=== PATIENT | female | born 1970 | race American Indian/Alaskan Native ===

== ENCOUNTER 2020-11-28 16:53 | Emergency (ER) | payer SELFPAY ==
[2020-11-28 17:08] VITALS: BP 132/76
--- NOTE | 2020-11-28 18:16 | XRay Report ---
CHEST 2 VIEWS INDICATION / CLINICAL INFORMATION: chest pain. FINDINGS: SUPPORT DEVICES: None. HEART / MEDIASTINUM: No significant abnormality. LUNGS / PLEURA: Small left-sided pleural effusion and tiny right pleural effusion. Streaky opacities within both lower lungs, nonspecific but could represent early interstitial edema versus atypical pne umonia. Signer Name: Alvino Govea MD Signed: 11/28/2020 6:11 PM Workstation Name: [id number]
[2020-11-28 18:44] LABS: Mean Corpuscular HGB Conc 28 % (30-34); Platelet Count 263 K/mm3 (140-440); Red Blood Count 4.72 M/mm3 (3.65-5.03)
[2020-11-28 18:51] LABS: Alanine Aminotransferase 27 units/L (7-56); Albumin 4.1 g/dL (3.9-5); BUN/Creatinine Ratio 9; Blood Urea Nitrogen 7 mg/dL (7-17); Calcium 8.6 mg/dL (8.4-10.2); Hemolysis Index 2
[2020-11-28 18:59] LABS: Hematocrit 27.6 % (30.3-42.9); Hemoglobin 7.8 gm/dl (10.1-14.3)
[2020-11-28 19:00] LABS: Mean Corpuscular Volume 59 fl (79-97); Red Cell Distribution Width 23.6 % (13.2-15.2)
[2020-11-28 19:35] LABS: Anisocytosis 1+; Hypochromasia Few; Total Cells Counted 100
--- NOTE | 2020-11-29 18:08 | Electrocardiograph Report ---
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
== END 2020-11-28 20:23 | disposition left against medical advice (07) ==
LOC: ED 16:53
DX: R07.9 Chest pain, unspecified (principal); Z53.21 Procedure and treatment not carried out due to patient leaving prior to being seen by health care provider
CPT/HCPCS: 36415; 71046; 80053; 84484; 85007; 85025; 93005

== ENCOUNTER 2020-12-07 22:24 | Inpatient (IN) | payer OTHER ==
--- NOTE | 2020-12-07 22:41 | Emergency Department Report ---
ED Shortness of Breath HPI - General Chief Complaint: Dyspnea/Respdistress Stated Complaint: MOUNA/COVID Time Seen by Provider: 12/07/20 22:29 Source: patient, EMS Mode of arrival: Stretcher Limitations: No Limitations - History of Present Illness Initial Comments: Patient is a 50-year-old female that presents emergency room with complaints of shortness of breath, cough, fever, Covid positive. Patient states she was diagnosed with COVID-19 1 week ago. Patient states her symptoms are worsening. Patient states her shortness of breath better with rest and worse with exertion. Patient states she has not seen a physician for this. Patient states she does not take any. Patient states the fever is fluctuating. Patient states it responds well to Tylenol. Patient states her cough is dry. Patient states she has not been vaccinated for COVID-19. Patient complains of chills. Patient denies nausea vomiting. Patient denies diarrhea. Patient denies abdominal pain. Patient denies chest pain. Patient brought in by EMS. Report received from EMS. EMS states the patient's ox saturation was 82%. Patient is currently on a nonrebreather is 95%. Patient was given Solu-Medrol, mag and albuterol. Complaint: shortness of breath, cough -: Sudden, week(s) Severity: severe Consistency: constant Improves With: rest Worsens With: exertion Context: recent URI Associated Symptoms: fever, cough Treatments Prior to Arrival: oxygen - Related Data Home Oxygen Therapy: No Allergies Allergy/AdvReac Type Severity Reaction Status Date / Time No Known Allergies Allergy Verified 12/07/20 23:37 ED Review of Systems ROS: Stated complaint: MOUNA/COVID Other details as noted in HPI Constitutional: chills, fever, malaise Eyes: denies: eye pain, eye discharge, vision change ENT: denies: ear pain, throat pain Respiratory: see HPI, cough, shortness of breath. denies: wheezing Cardiovascular: denies: chest pain, palpitations Endocrine: no symptoms reported Gastrointestinal: denies: abdominal pain, nausea, diarrhea Genitourinary: denies: urgency, dysuria, discharge Musculoskeletal: denies: back pain, joint swelling, arthralgia Skin: denies: rash, lesions Neurological: denies: headache, weakness, paresthesias Psychiatric: denies: anxiety, depression Hematological/Lymphatic: denies: easy bleeding, easy bruising ED Past Medical Hx - Past Medical History Previous Medical History?: Yes Hx Hypertension: Yes - Surgical History Past Surgical History?: No - Family History Family history: no significant - Social History Smoking Status: Never Smoker Substance Use Type: None ED Physical Exam - General Limitations: No Limitations General appearance: alert, in distress - Head Head exam: Present: atraumatic, normocephalic - Eye Eye exam: Present: normal appearance - ENT ENT exam: Present: mucous membranes moist - Neck Neck exam: Present: normal inspection - Respiratory Respiratory exam: Present: respiratory distress, decreased breath sounds - Cardiovascular Cardiovascular Exam: Present: regular rate, normal rhythm. Absent: systolic murmur, diastolic murmur, rubs, gallop - GI/Abdominal GI/Abdominal exam: Present: soft, normal bowel sounds - Extremities Exam Extremities exam: Present: normal inspection - Back Exam Back exam: Present: normal inspection - Neurological Exam Neurological exam: Present: alert, oriented X3 - Psychiatric Psychiatric exam: Present: normal affect, normal mood - Skin Skin exam: Present: warm, dry, intact, normal color. Absent: rash ED Course Vital Signs 12/07/20 12/07/20 12/07/20 22:34 22:45 23:01 Temperature Pulse Rate 97 H 97 H 97 H Respiratory 51 H 48 H 52 H Rate Blood Pressure 167/104 169/97 O2 Sat by Pulse 97 98 99 Oximetry 12/07/20 12/07/20 12/07/20 23:15 23:20 23:24 Temperature 98.3 F Pulse Rate 95 H 97 H 94 H Respiratory 54 H 30 H 47 H Rate Blood Pressure 169/97 167/100 167/100 O2 Sat by Pulse 89 98 96 Oximetry 12/07/20 12/07/20 12/08/20 23:31 23:45 00:01 Temperature Pulse Rate 94 H 93 H 91 H Respiratory 47 H 42 H 45 H Rate Blood Pressure 167/100 167/100 158/96 O2 Sat by Pulse 97 99 100 Oximetry 12/08/20 12/08/20 12/08/20 00:11 00:15 00:31 Temperature Pulse Rate 97 H 96 H Respiratory 43 H 43 H Rate Blood Pressure 158/96 144/104 O2 Sat by Pulse 100 97 99 Oximetry 12/08/20 12/08/20 12/08/20 00:45 01:01 01:15 Temperature Pulse Rate 97 H 95 H 92 H Respiratory 34 H 39 H 39 H Rate Blood Pressure 144/104 130/86 130/86 O2 Sat by Pulse 98 98 98 Oximetry 12/08/20 12/08/20 12/08/20 01:31 01:46 02:01 Temperature Pulse Rate 92 H 92 H Respiratory 43 H 36 H Rate Blood Pressure 125/82 125/82 125/82 O2 Sat by Pulse 100 100 100 Oximetry 12/08/20 12/08/20 12/08/20 02:15 02:31 02:45 Temperature Pulse Rate 96 H 95 H 96 H Respiratory 34 H 37 H 38 H Rate Blood Pressure 160/100 160/100 125/82 O2 Sat by Pulse 99 98 98 Oximetry - Reevaluation(s) Reevaluation #1: Patient on BiPAP. Patient anxiety. Patient will be given Ativan. 12/07/20 23:26 Reevaluation #2: Patient states she is feeling better. Patient on BiPAP. Patient states her anxiety is better. 12/08/20 00:15 Reevaluation #3: Patient resting BiPAP. Patient's work to breathe is improved. Patient oxygen saturation is stable. 12/08/20 01:04 Reevaluation #4: Patient states resting comfortably in bed. Patient still on BiPAP. Patient's work to breathe has improved. 12/08/20 02:05 Reevaluation #5: I discussed all results with patient. I discussed plan of care with patient. Patient agrees with plan of care and admission. Patient to be admitted to the hospitalist service. 12/08/20 03:05 - Consultations Consultation #1: Hospitalist consulted for admission. Hospitalist to admit patient. 12/08/20 03:05 ED Medical Decision Making - Lab Data Result diagrams: 12/08/20 00:15 12/08/20 00:15 - Radiology Data Radiology results: report reviewed, image reviewed interpreted by me: Chest x-ray: Bilateral pneumonia, no pneumothorax, no foreign body, no osseous findings, CTA chest with contrast INDICATION : Shortness of breath, Hypoxia, elevated D-dimer. TECHNIQUE: Axial imaging performed through the chest, with contrast bolus timing set to maximize opacification of the pulmonary arteries. 3-plane MIP reformatted images were obtained. All CT scans at this location are performed using CT dose reduction for ALARA by means of automated exposure control. 100 mL of intravenous contrast administered. COMPARISON: None FINDINGS: Bolus/PTE: Contrast bolus timing is adequate. No filling defect is present to suggest PTE. Mediastinum: Heart and great vessels appear normal. No pathologic mediastinal adenopathy. Lungs: There is patchy diffuse ground glass predominant airspace disease and also mild bibasilar consolidation/atelectasis. No pleural effusion. Upper abdomen: Limited imaging of the upper abdomen shows nothing acute. Bones: No acute osseous abnormality. IMPRESSION: 1. Negative for PTE. 2. Pulmonary findings as above suggesting an atypical etiology versus interstitial edema. CHEST 1 VIEW INDICATION: Dyspnea. COMPARISON: 11/28/2020 FINDINGS: SUPPORT DEVICES: None. HEART: Within normal limits. LUNGS/PLEURA: Mild patchy multifocal airspace disease. ADDITIONAL FINDINGS: None. IMPRESSION: 1. Pulmonary findings as above. - Medical Decision Making Patient is a 50-year-old female who presents emergency room with complaints of being Covid positive, shortness of breath fever and cough. Patient has had Covid for a week. Patient is unvaccinated. Patient had labs done which were essentially unremarkable except for elevated BC, anemia, elevated inflammatory markers and elevated D-dimer. Due to the amount of D-dimer elevation the patient had and the patient's hypoxia and shortness of breath, a CTA was done. CTA was negative for PE and positive for interstitial pneumonia. Patient's manfred st x-ray was done which showed bilateral atypical pneumonia. I personally reviewed the chest x-ray. After initial valuation, the patient was given Decadron, Rocephin and Zithromax. Patient was also placed on BiPAP after initial evaluation. Patient responded well to BiPAP. Patient work to breathe improved. Patient admitted to the hospital service for further evaluation treatment and into the intermediate ICU. Critical care time documented due to the multiple reassessments, prolonged time at the bedside, interpretation of diagnostics and labs. - Differential Diagnosis Covid, pneumonia, PE, shortness of breath, respiratory failure, hypoxia Critical Care Time: Yes Critical care time in (mins) excluding proc time.: 35 Critical care attestation.: If time is entered above; I have spent that time in minutes in the direct care of this critically ill patient, excluding procedure time. Critical Care Time: 35 minutes ED Disposition Clinical Impression: COVID-19, SOB (shortness of breath) Respiratory failure Qualifiers: Chronicity: acute Respiratory failure complication: hypoxia Qualified Code(s): J96.01 - Acute respiratory failure with hypoxia Pneumonia Qualifiers: Pneumonia type: due to unspecified organism Laterality: bilateral Lung location: unspecified part of lung Qualified Code(s): J18.9 - Pneumonia, unspecified organism Disposition: 09 OP ADMIT IP TO THIS HOSP Is pt being admited?: Yes Does the pt Need Aspirin: No Condition: Critical Instructions: Bacterial Pneumonia (ED) Time of Disposition: 03:08
[2020-12-07] MEDS ORDERED: cefTRIAXone/NS 2 GM/100 ML 2 GM/100 ML BAG IV ONE (22:57)
[2020-12-07] MEDS ORDERED: AZITHROMYCIN/NS 500 MG/250 ML 500 MG/250 ML BAG IV ONE (22:57)
--- NOTE | 2020-12-07 23:22 | XRay Report ---
CHEST 1 VIEW INDICATION: Dyspnea. COMPARISON: 11/28/2020 FINDINGS: SUPPORT DEVICES: None. HEART: Within normal limits. LUNGS/PLEURA: Mild patchy multifocal airspace disease. ADDITIONAL FINDINGS: None. IMPRESSION: 1. Pulmonary findings as above. Signer Name: Brian Sheikh MD Signed: 12/07/2020 11:18 PM Workstation Name: [id number]
[2020-12-07] MEDS ORDERED: LORazepam 2 MG/ML VIAL IV ONE (23:32)
[2020-12-07] MEDS ORDERED: LORazepam 2 MG/ML VIAL ONE (23:33)
[2020-12-08 00:47] LABS: INR 1.27 (0.87-1.13)
[2020-12-08 00:48] LABS: Partial Thromboplastin Time 29.6 Sec. (24.2-36.6)
[2020-12-08 00:49] LABS: Mean Corpuscular HGB Conc 28 % (30-34); Platelet Count 464 K/mm3 (140-440)
[2020-12-08 00:50] LABS: Hematocrit 29.7 % (30.3-42.9); Hemoglobin 8.3 gm/dl (10.1-14.3); Mean Corpuscular Volume 55 fl (79-97)
[2020-12-08 00:57] LABS: Albumin 3.2 g/dL (3.9-5); Blood Urea Nitrogen 17 mg/dL (7-17); Calcium 8.3 mg/dL (8.4-10.2); Hemolysis Index 0
[2020-12-08 01:05] LABS: BUN/Creatinine Ratio 28
[2020-12-08 01:14] LABS: Alanine Aminotransferase 1384 units/L (7-56)
[2020-12-08 02:03] LABS: Anisocytosis 2+; Band Neutrophils # (Manual) 0.9 K/mm3; Hypochromasia 3+; Ovalocytes 1+; Platelet Estimate Consistent w Auto; Target Cells 2+; Tear Drop Cells 1+; Total Cells Counted 100
--- NOTE | 2020-12-08 02:14 | Cat Scan Report ---
CTA chest with contrast INDICATION : Shortness of breath, Hypoxia, elevated D-dimer. TECHNIQUE: Axial imaging performed through the chest, with contrast bolus timing set to maximize opa cification of the pulmonary arteries. 3-plane MIP reformatted images were obtained. All CT scans at this location are performed using CT dose reduction for ALARA by means of automated exposure control. 100 mL of intravenous contrast administered. COMPARISON: None FINDINGS: Bolus/PTE: Contrast bolus timing is adequate. No filling defect is present to suggest PTE. Mediastinum: Heart and great vessels appear normal. No pathologic mediastinal adenopathy. Lungs: There is patchy diffuse ground glass predominant airspace disease and also mild bibasilar con solidation/atelectasis. No pleural effusion. Upper abdomen: Limited imaging of the upper abdomen shows nothing acute. Bones: No acute osseous abnormality. IMPRESSION: 1. Negative for PTE. 2. Pulmonary findings as above suggesting an atypical etiology versus interstitial edema. Signer Name: Brian Sheikh MD Signed: 12/08/2020 2:09 AM Workstation Name: [id number]
[2020-12-08 02:24] LABS: C-Reactive Protein 20.7 mg/dL (0.00-1.30)
[2020-12-08] MEDS ORDERED: ONDANSETRON 4 MG/2 ML INJ IV PRN (05:31)
[2020-12-08] MEDS ORDERED: ALBUTEROL 2.5 MG/3 ML NEBU IH PRN (05:31)
--- NOTE | 2020-12-08 05:39 | History and Physical Report ---
History of Present Illness Date of examination: 12/08/20 Date of admission: 12/08/20 03:11 Chief complaint: Shortness of breath Cough History of present illness: 50-year-old female with history of hypertension was brought to the emergency room because of shortness of breath, cough, fever, Covid positive. Patient was diagnosed with COVID-19 1 week ago. Since then patient complained of worsening shortness of breath. Patient states she has not seen a physician for this. Patient states she does not take any medicine. Patient states the fever is fluctuating. Patient states it responds well to Tylenol. Patient states her cough is dry. Patient states she has not been vaccinated for COVID-19. Patient complains of chills. Patient denies nausea vomiting. Patient denies diarrhea. Patient denies abdominal pain. Patient denies chest pain. patient's ox saturation was 82%. Patient was found to have acute respiratory failure. Patient WBC 17.0 and chest x-ray shows pneumonia secondary to Covid. Patient was put on BiPAP Past History Past Medical History: hypertension Medications and Allergies Allergies Allergy/AdvReac Type Severity Reaction Status Date / Time No Known Allergies Allergy Verified 12/07/20 23:37 Review of Systems Constitutional: fever, chills Cardiovascular: shortness of breath, dyspnea on exertion Respiratory: cough, shortness of breath, dyspnea on exertion Exam - Constitutional Vitals: Temp Pulse Resp BP Pulse Ox 98.3 F 95 H 37 H 144/100 97 12/07/20 23:20 12/08/20 04:15 12/08/20 04:15 12/08/20 04:15 12/08/20 04:15 General appearance: Present: severe distress - EENT Eyes: Present: PERRL ENT: hearing intact, clear oral mucosa - Neck Neck: Present: supple, normal ROM - Respiratory Respiratory effort: normal Respiratory: bilateral: diminished - Cardiovascular Heart Sounds: Present: S1 & S2. Absent: rub, click - Extremities Extremities: pulses symmetrical, No edema Peripheral Pulses: within normal limits - Abdominal General gastrointestinal: Present: soft, non-tender, non-distended, normal bowel sounds Female genitourinary: Present: normal - Integumentary Integumentary: Present: clear, warm, dry - Musculoskeletal Musculoskeletal: gait normal, strength equal bilaterally - Psychiatric Psychiatric: appropriate mood/affect, intact judgment & insight - Neurologic Neurologic: CNII-XII intact, moves all extremities Results - Labs CBC & Chem 7: 12/08/20 00:15 12/08/20 00:15 Labs: Laboratory Last Values WBC 17.0 K/mm3 (4.5-11.0) H 12/08/20 00:15 RBC 5.40 M/mm3 (3.65-5.03) H 12/08/20 00:15 Hgb 8.3 gm/dl (10.1-14.3) L 12/08/20 00:15 Hct 29.7 % (30.3-42.9) L 12/08/20 00:15 MCV 55 fl (79-97) L 12/08/20 00:15 MCH 16 pg (28-32) L 12/08/20 00:15 MCHC 28 % (30-34) L 12/08/20 00:15 RDW 25.0 % (13.2-15.2) H 12/08/20 00:15 Plt Count 464 K/mm3 (140-440) H 12/08/20 00:15 Add Manual Diff Complete 12/08/20 00:15 Total Counted 100 12/08/20 00:15 Seg Neuts % (Manual) 92.0 % (40.0-70.0) H 12/08/20 00:15 Band Neutrophils % 5.0 % 12/08/20 00:15 Lymphocytes % (Manual) 1.0 % (13.4-35.0) L 12/08/20 00:15 Monocytes % (Manual) 1.0 % (0.0-7.3) 12/08/20 00:15 Metamyelocytes % 1.0 % 12/08/20 00:15 Nucleated RBC % Not Reportable 12/08/20 00:15 Seg Neutrophils # Man 15.6 K/mm3 (1.8-7.7) H 12/08/20 00:15 Band Neutrophils # 0.9 K/mm3 12/08/20 00:15 Lymphocytes # (Manual) 0.2 K/mm3 (1.2-5.4) L 12/08/20 00:15 Abs React Lymphs (Man) 0.0 K/mm3 12/08/20 00:15 Monocytes # (Manual) 0.2 K/mm3 (0.0-0.8) 12/08/20 00:15 Eosinophils # (Manual) 0.0 K/mm3 (0.0-0.4) 12/08/20 00:15 Basophils # (Manual) 0.0 K/mm3 (0.0-0.1) 12/08/20 00:15 Metamyelocytes # 0.2 K/mm3 12/08/20 00:15 Myelocytes # 0.0 K/mm3 12/08/20 00:15 Promyelocytes # 0.0 K/mm3 12/08/20 00:15 Blast Cells # 0.0 K/mm3 12/08/20 00:15 WBC Morphology Not Reportable 12/08/20 00:15 Hypersegmented Neuts Not Reportable 12/08/20 00:15 Hyposegmented Neuts Not Reportable 12/08/20 00:15 Hypogranular Neuts Not Reportable 12/08/20 00:15 Smudge Cells Not Reportable 12/08/20 00:15 Toxic Granulation Not Reportable 12/08/20 00:15 Toxic Vacuolation Not Reportable 12/08/20 00:15 Dohle Bodies Not Reportable 12/08/20 00:15 Pelger-Huet Anomaly Not Reportable 12/08/20 00:15 Lauryn Rods Not Reportable 12/08/20 00:15 Platelet Estimate Consistent w auto 12/08/20 00:15 Clumped Platelets Not Reportable 12/08/20 00:15 Plt Clumps, EDTA Not Reportable 12/08/20 00:15 Large Platelets Not Reportable 12/08/20 00:15 Giant Platelets Not Reportable 12/08/20 00:15 Platelet Satelliting Not Reportable 12/08/20 00:15 Plt Morphology Comment Not Reportable 12/08/20 00:15 RBC Morphology Not Reportable 12/08/20 00:15 Dimorphic RBCs Not Reportable 12/08/20 00:15 Polychromasia 1+ 12/08/20 00:15 Hypochromasia 3+ 12/08/20 00:15 Poikilocytosis Not Reportable 12/08/20 00:15 Anisocytosis 2+ 12/08/20 00:15 Microcytosis Not Reportable 12/08/20 00:15 Macrocytosis Not Reportable 12/08/20 00:15 Spherocytes Not Reportable 12/08/20 00:15 Pappenheimer Bodies Not Reportable 12/08/20 00:15 Sickle Cells Not Reportable 12/08/20 00:15 Target Cells 2+ 12/08/20 00:15 Tear Drop Cells 1+ 12/08/20 00:15 Ovalocytes 1+ 12/08/20 00:15 Helmet Cells Not Reportable 12/08/20 00:15 Torres-Badin Bodies Not Reportable 12/08/20 00:15 [place] Rings Not Reportable 12/08/20 00:15 [place] Cells Not Reportable 12/08/20 00:15 Bite Cells Not Reportable 12/08/20 00:15 Crenated Cell Not Reportable 12/08/20 00:15 Elliptocytes Not Reportable 12/08/20 00:15 Acanthocytes (Spur) Not Reportable 12/08/20 00:15 Rouleaux Not Reportable 12/08/20 00:15 Hemoglobin C Crystals Not Reportable 12/08/20 00:15 Schistocytes Not Reportable 12/08/20 00:15 Malaria parasites Not Reportable 12/08/20 00:15 Brant Bodies Not Reportable 12/08/20 00:15 Hem Pathologist Commnt No 12/08/20 00:15 PT 16.4 Sec. (12.2-14.9) H 12/08/20 00:15 INR 1.27 (0.87-1.13) H 12/08/20 00:15 APTT 29.6 Sec. (24.2-36.6) 12/08/20 00:15 D-Dimer 1129.87 ng/mlDDU (0-234) H 12/08/20 00:15 Sodium 139 mmol/L (137-145) 12/08/20 00:15 Potassium 3.1 mmol/L (3.6-5.0) L 12/08/20 00:15 Chloride 101.3 mmol/L (98-107) 12/08/20 00:15 Carbon Dioxide 24 mmol/L (22-30) 12/08/20 00:15 Anion Gap 17 mmol/L 12/08/20 00:15 BUN 17 mg/dL (7-17) 12/08/20 00:15 Creatinine 0.6 mg/dL (0.6-1.2) 12/08/20 00:15 Estimated GFR > 60 ml/min 12/08/20 00:15 BUN/Creatinine Ratio 28 % 12/08/20 00:15 Glucose 128 mg/dL (65-100) H 12/08/20 00:15 Lactic Acid 2.50 mmol/L (0.7-2.0) H* 12/08/20 02:16 Calcium 8.3 mg/dL (8.4-10.2) L 12/08/20 00:15 Ferritin 289.8 ng/mL (10.0-200.0) H 12/08/20 00:15 Total Bilirubin 1.90 mg/dL (0.1-1.2) H 12/08/20 00:15 AST 309 units/L (5-40) H 12/08/20 00:15 ALT 1384 units/L (7-56) H 12/08/20 00:15 Alkaline Phosphatase 440 units/L (35-129) H 12/08/20 00:15 Lactate Dehydrogenase 608 units/L (91-180) H 12/08/20 00:15 C-Reactive Protein 20.70 mg/dL (0.00-1.30) H 12/08/20 00:15 Total Protein 7.7 g/dL (6.3-8.2) 12/08/20 00:15 Albumin 3.2 g/dL (3.9-5) L 12/08/20 00:15 Albumin/Globulin Ratio 0.7 % 12/08/20 00:15 Procalcitonin 21.55 ng/mL (<0.15) 12/08/20 00:15 Microbiology: Microbiology 12/08/20 00:15 Peripheral/Venous Blood Culture - Preliminary Culture in Progress 12/08/20 00:05 Peripheral/Venous Blood Culture - Preliminary Culture in Progress Assessment and Plan VTE prophylaxis?: Chemical Plan of care discussed with patient/family: Yes - Patient Problems (1) Acute respiratory failure Current Visit: Yes Status: Acute Plan to address problem: Admit the patient to the IMCU. Patient is on BiPAP. DuoNeb by nebulizer every 4 hours. Albuterol via nebulizer every 4 hours as needed. Rocephin 2 g IV daily. Zithromax 500 mils IV daily. Dexamethasone 6 mg IV daily. Blood cultures sputum culture. Reconsult pulmonary as well as infectious disease for evaluation. Follow the Covid inflammatory marker (2) COVID-19 Current Visit: Yes Status: Acute Plan to address problem: Patient is on BiPAP. DuoNeb by nebulizer every 4 hours. Albuterol via nebulizer every 4 hours as needed. Rocephin 2 g IV daily. Zithromax 500 mils IV daily. Dexamethasone 6 mg IV daily. Blood cultures sputum culture. Reconsult pulmonary as well as infectious disease for evaluation. Follow the Covid inflammatory marker (3) Pneumonia Current Visit: Yes Status: Acute Qualifiers: Pneumonia type: due to unspecified organism Laterality: bilateral Lung location: unspecified part of lung Qualified Code(s): J18.9 - Pneumonia, unspecified organism Plan to address problem: Rocephin 2 g IV daily. Zithromax 500 mils IV daily. Blood cultures sputum culture. Reconsult pulmonary as well as infectious disease for evaluation. (4) Hypertension Current Visit: Yes Status: Acute Plan to address problem: Hydralazine 10 mg IV every 6 hours as needed. We will monitor the blood pressure closely (5) DVT prophylaxis Current Visit: Yes Status: Acute Plan to address problem: Heparin 5000 units subcu every 8 hours for DVT prophylaxis. Pepcid 20 mg p.o. twice daily for GI prophylaxis. Patient is a full code
[2020-12-08] MEDS: HEPARIN 5,000 UNIT/1 ML VIAL SUB-Q SCH ×3 (06:15→21:40)
[2020-12-08] MEDS: IPRATROPIUM/ALBUTEROL SULFATE 3 ML AMPUL.NEB IH SCH ×3 (08:54→20:39)
[2020-12-08] MEDS: dexAMETHasone 4 MG/ML VIAL IV SCH (11:22)
[2020-12-08] MEDS: FAMOTIDINE 20 MG TAB PO SCH ×2 (11:22→21:40)
[2020-12-08] MEDS: HYDROmorphone 1 MG/1 ML INJ IV PRN ×3 (13:32→23:38)
--- NOTE | 2020-12-08 13:48 | Event Note ---
Date: 12/08/20 Patient was seen and evaluated this morning and patient was on BIPAP. Patient admitted earlier this morning and continue management as outlined in HPI.
--- NOTE | 2020-12-08 15:12 | Vascular Lab Report ---
DUPLEX DOPPLER LOWER EXTREMITY VEINS, BILATERAL INDICATION / CLINICAL INFORMATION: Elevated d-dimer, SOB. TECHNIQUE: Duplex doppler imaging was performed through the veins of both lower extremities using catrina ous compression and other maneuvers. COMPARISON: None available. FINDINGS: RIGHT COMMON FEMORAL VEIN: Negative. RIGHT FEMORAL VEIN: Negative. RIGHT POPLITEAL VEIN: Negative. RIGHT CALF VEINS: Negative. LEFT COMMON FEMORAL VEIN: Negative. LEFT FEMORAL VEIN: Negative. LEFT POPLITEAL VEIN: Negative. LEFT CALF VEINS: Negative. ADDITIONAL FINDINGS: None. IMPRESSION: 1. No sonographic evidence for DVT in either lower extremity. Scribed by: Noreen Alex RDMS, RVT Scribed: 12/08/2020 1:57 PM I have reviewed the images, agree with this report, and edited this report as needed. Signer Name: Navi Linares MD Signed: 12/08/2020 3:08 PM Workstation Name: [id number]
--- NOTE | 2020-12-08 15:13 | Consultation ---
History of Present Illness - Reason for Consult Consult date: 12/08/20 - History of Present Illness 50-year-old female past medical history hypertension Brought to the hospital shortness of breath, cough, fever. She notes she was diagnosed with COVID-19 as an outpatient 1 week prior to admission. She notes her symptoms are progressive since onset. She is not vaccinated against Covid and to be hypoxic on presentation. Afebrile, white count 17. Covid positive. Normal renal function elevated procalcitonin high inflammatory markers. Blood cultures no growth so far. On BiPAP. Imaging personally: Chest CTA: No pulmonary embolism. Patchy diffuse groundglass Review of systems: Deferred to reduce to the risk of transmission of COVID-19 Past History Past Medical History: hypertension Medications and Allergies Allergies Allergy/AdvReac Type Severity Reaction Status Date / Time No Known Allergies Allergy Verified 12/07/20 23:37 Home Medications Medication Instructions Recorded Confirmed Last Taken Type No Known Home Medications [No 12/08/20 12/08/20 Unknown History Reported Home Medications] Active Meds: Active Medications Acetaminophen (Acetaminophen 325 Mg Tab) 650 mg PO Q4H PRN PRN Reason: Pain MILD(1-3)/Fever >100.5/[place] Albuterol (Albuterol 2.5 Mg/3 Ml Nebu) 2.5 mg IH Q4HRT PRN PRN Reason: Shortness Of Breath Albuterol/Ipratropium (Ipratropium/Albuterol Sulfate 3 Ml Ampul.Neb) 1 ampul IH Q6HRT [facility] Last Admin: 12/08/20 14:40 Dose: Not Given Documented by: Dexamethasone (Dexamethasone 4 Mg/Ml Vial) 6 mg IV DAILY [facility] Stop: 12/17/20 10:01 Last Admin: 12/08/20 11:22 Dose: 6 mg Documented by: Famotidine (Famotidine 20 Mg Tab) 20 mg PO BID [facility] Last Admin: 12/08/20 11:22 Dose: 20 mg Documented by: Heparin Sodium (Porcine) (Heparin 5,000 Unit/1 Ml Vial) 5,000 unit SUB-Q Q8HR [facility] Last Admin: 12/08/20 15:01 Dose: 5,000 unit Documented by: Hydromorphone HCl (Hydromorphone 1 Mg/1 Ml Inj) 0.5 mg IV Q3H PRN PRN Reason: Pain , Severe (7-10) Last Admin: 12/08/20 13:32 Dose: 0.5 mg Documented by: Ceftriaxone Sodium (Rocephin/Ns 2 Gm/100 Ml) 2 gm in 100 mls @ 200 mls/hr IV Q24H DARIAN; Protocol Azithromycin (Zithromax/Ns) 500 mg in 250 mls @ 250 mls/hr IV Q24H DARIAN; Protocol Ondansetron HCl (Ondansetron 4 Mg/2 Ml Inj) 4 mg IV Q8H PRN PRN Reason: Nausea And Vomiting Oxycodone/Acetaminophen (Oxycodone /Acetaminophen 5-325mg Tab) 1 tab PO Q6H PRN PRN Reason: Pain, Moderate (4-6) Sodium Chloride (Sodium Chloride 0.9% 10 Ml Flush Syringe) 10 ml IV BID DARIAN Last Admin: 12/08/20 11:32 Dose: Not Given Documented by: Sodium Chloride (Sodium Chloride 0.9% 10 Ml Flush Syringe) 10 ml IV PRN PRN PRN Reason: LINE FLUSH Physical Examination - Physical Exam Narrative exam: Physical exam deferred to reduce risk of transmission of COVID-19. Please refer to primary team's note. - Constitutional Vitals: Vital Signs Temp Pulse Resp BP Pulse Ox 98.3 F 95 H 22 154/94 94 12/07/20 23:20 12/08/20 10:00 12/08/20 14:02 12/08/20 10:00 12/08/20 10:00 Temperature -Last 24 Hours Temperature 98.3 F Results - Labs CBC & Chem 7: 12/08/20 00:15 12/08/20 00:15 Labs: Abnormal lab results 12/08/20 12/08/20 12/08/20 Range/Units 00:15 00:15 00:15 WBC 17.0 H (4.5-11.0) K/mm3 RBC 5.40 H (3.65-5.03) M/mm3 Hgb 8.3 L (10.1-14.3) gm/dl Hct 29.7 L (30.3-42.9) % MCV 55 L (79-97) fl MCH 16 L (28-32) pg MCHC 28 L (30-34) % RDW 25.0 H (13.2-15.2) % Plt Count 464 H (140-440) K/mm3 Seg Neuts % (Manual) 92.0 H (40.0-70.0) % Lymphocytes % (Manual) 1.0 L (13.4-35.0) % Seg Neutrophils # Man 15.6 H (1.8-7.7) K/mm3 Lymphocytes # (Manual) 0.2 L (1.2-5.4) K/mm3 PT 16.4 H (12.2-14.9) Sec. INR 1.27 H (0.87-1.13) D-Dimer 1129.87 H (0-234) ng/mlDDU Potassium 3.1 L (3.6-5.0) mmol/L Glucose 128 H (65-100) mg/dL Lactic Acid (0.7-2.0) mmol/L Calcium 8.3 L (8.4-10.2) mg/dL Ferritin (10.0-200.0) ng/mL Total Bilirubin 1.90 H (0.1-1.2) mg/dL AST 309 H (5-40) units/L ALT 1384 H (7-56) units/L Alkaline Phosphatase 440 H (35-129) units/L Lactate Dehydrogenase (91-180) units/L C-Reactive Protein (0.00-1.30) mg/dL Albumin 3.2 L (3.9-5) g/dL Coronavirus (PCR) (Negative) 12/08/20 12/08/20 12/08/20 Range/Units 00:15 00:15 00:15 WBC (4.5-11.0) K/mm3 RBC (3.65-5.03) M/mm3 Hgb (10.1-14.3) gm/dl Hct (30.3-42.9) % MCV (79-97) fl MCH (28-32) pg MCHC (30-34) % RDW (13.2-15.2) % Plt Count (140-440) K/mm3 Seg Neuts % (Manual) (40.0-70.0) % Lymphocytes % (Manual) (13.4-35.0) % Seg Neutrophils # Man (1.8-7.7) K/mm3 Lymphocytes # (Manual) (1.2-5.4) K/mm3 PT (12.2-14.9) Sec. INR (0.87-1.13) D-Dimer (0-234) ng/mlDDU Potassium (3.6-5.0) mmol/L Glucose (65-100) mg/dL Lactic Acid 2.30 H* (0.7-2.0) mmol/L Calcium (8.4-10.2) mg/dL Ferritin 289.8 H (10.0-200.0) ng/mL Total Bilirubin (0.1-1.2) mg/dL AST (5-40) units/L ALT (7-56) units/L Alkaline Phosphatase (35-129) units/L Lactate Dehydrogenase 608 H (91-180) units/L C-Reactive Protein 20.70 H (0.00-1.30) mg/dL Albumin (3.9-5) g/dL Coronavirus (PCR) (Negative) 12/08/20 12/08/20 12/08/20 Range/Units 02:16 09:49 10:30 WBC (4.5-11.0) K/mm3 RBC (3.65-5.03) M/mm3 Hgb (10.1-14.3) gm/dl Hct (30.3-42.9) % MCV (79-97) fl MCH (28-32) pg MCHC (30-34) % RDW (13.2-15.2) % Plt Count (140-440) K/mm3 Seg Neuts % (Manual) (40.0-70.0) % Lymphocytes % (Manual) (13.4-35.0) % Seg Neutrophils # Man (1.8-7.7) K/mm3 Lymphocytes # (Manual) (1.2-5.4) K/mm3 PT (12.2-14.9) Sec. INR (0.87-1.13) D-Dimer (0-234) ng/mlDDU Potassium (3.6-5.0) mmol/L Glucose (65-100) mg/dL Lactic Acid 2.50 H* 2.40 H* (0.7-2.0) mmol/L Calcium (8.4-10.2) mg/dL Ferritin (10.0-200.0) ng/mL Total Bilirubin (0.1-1.2) mg/dL AST (5-40) units/L ALT (7-56) units/L Alkaline Phosphatase (35-129) units/L Lactate Dehydrogenase (91-180) units/L C-Reactive Protein (0.00-1.30) mg/dL Albumin (3.9-5) g/dL Coronavirus (PCR) Positive A (Negative) Assessment and Plan Cultures: Blood culture no growth so far Covid positive A/P: 50-year-old female past medical history hypertension admitted with COVID-19 #Severe COVID-19 pneumonia: Patient presented with a week of symptoms, chest x- ray with diffuse bilateral infiltrates. Inflammatory markers elevated. No evidence of pulmonary embolism on CT #Acute hypoxemic respiratory failure: Likely secondary to COVID-19 infection. Currently on BiPAP Recs: -Dexamethasone 6 mg IV/PO daily for 10 days -Remdesivir 200 mg IV q day x 1 followed by 100 mg IV q day x 4 days -With very high procalcitonin likely bacterial coinfection, as such not an Actemra candidate -Obtain q48-72h inflammatory markers - ferritin, Ddimer, CRP, LDH -Continue ceftriaxone 2 gm IV qday and azithromycin 500 mg PO qday to complete 5 days -Anticoagulation per hospital protocol -Proning as able Thank you for the consult, we will continue to follow. MD Coretta [facility] O: [phone] F: [phone]
[2020-12-08] MEDS: cefTRIAXone/NS 2 GM/100 ML 2 GM/100 ML BAG IV SCH (21:40)
[2020-12-08] MEDS: AZITHROMYCIN/NS 500 MG/250 ML 500 MG/250 ML BAG IV SCH (21:40)
[2020-12-09] MEDS ORDERED: LORazepam 2 MG/ML VIAL IV ONE (01:08)
[2020-12-09] MEDS ORDERED: LORazepam 2 MG/ML VIAL ONE (01:11)
[2020-12-09 05:18] LABS: Blood Urea Nitrogen 30 mg/dL (7-17); Calcium 8.7 mg/dL (8.4-10.2); Hemolysis Index 2
[2020-12-09 05:30] LABS: BUN/Creatinine Ratio 43
[2020-12-09 05:45] LABS: Mean Corpuscular HGB Conc 28 % (30-34); Monocytes # (Auto) 1.3 K/mm3 (0.0-0.8); Platelet Count 509 K/mm3 (140-440); Red Blood Count 5.12 M/mm3 (3.65-5.03)
[2020-12-09 05:58] LABS: Hematocrit 29.1 % (30.3-42.9); Hemoglobin 8.2 gm/dl (10.1-14.3); Mean Corpuscular Volume 57 fl (79-97); Red Cell Distribution Width 24.6 % (13.2-15.2)
[2020-12-09] MEDS: IPRATROPIUM/ALBUTEROL SULFATE 3 ML AMPUL.NEB IH SCH (06:19)
[2020-12-09 09:52] LABS: Albumin 3.1 g/dL (3.9-5); Blood Urea Nitrogen 29 mg/dL (7-17); Hemolysis Index 4
[2020-12-09 09:53] LABS: BUN/Creatinine Ratio 48
[2020-12-09] MEDS ORDERED: REMDESIVIR 200 MG in SODIUM CHLORIDE 0.9% 250ML 250 ML IV ONE (10:00)
[2020-12-09 10:10] LABS: Alanine Aminotransferase 867 units/L (7-56)
--- NOTE | 2020-12-09 10:18 | Progress Note ---
Assessment and Plan Assessment and plan: (1) Acute respiratory failure Current Visit: Yes Status: Acute Plan to address problem: Admit the patient to the [facility]. Patient is on BiPAP. DuoNeb by nebulizer every 4 hours. Albuterol via nebulizer every 4 hours as needed. Rocephin 2 g IV daily. Zithromax 500 mils IV daily. Dexamethasone 6 mg IV daily. Blood cultures sputum culture. Reconsult pulmonary as well as infectious disease for evaluation. Follow the Covid inflammatory marker (2) COVID-19 Current Visit: Yes Status: Acute Plan to address problem: Patient is on BiPAP. DuoNeb by nebulizer every 4 hours. Albuterol via nebulizer every 4 hours as needed. Rocephin 2 g IV daily. Zithromax 500 mils IV daily. Dexamethasone 6 mg IV daily. Blood cultures sputum culture. Reconsult pulmonary as well as infectious disease for evaluation. Follow the Covid inflammatory marker (3) Pneumonia Current Visit: Yes Status: Acute Qualifiers: Pneumonia type: due to unspecified organism Laterality: bilateral Lung location: unspecified part of lung Qualified Code(s): J18.9 - Pneumonia, unspecified organism Plan to address problem: Rocephin 2 g IV daily. Zithromax 500 mils IV daily. Blood cultures sputum culture. Reconsult pulmonary as well as infectious disease for evaluation. (4) Hypertension Current Visit: Yes Status: Acute Plan to address problem: Hydralazine 10 mg IV every 6 hours as needed. We will monitor the blood pressure closely (5) DVT prophylaxis Current Visit: Yes Status: Acute Plan to address problem: Heparin 5000 units subcu every 8 hours for DVT prophylaxis. Pepcid 20 mg p.o. twice daily for GI prophylaxis. Patient is a full code. 12/09/2020 -Patient was on BiPAP with FiO2 of 100%, patient desaturated when she was off BiPAP momentarily. I put her on D5 half-normal saline for maintenance. Titrate oxygen as tolerated. -Pulmonary consulted, ID consulted. -Patient has elevated ALT and AST and is not a candidate for remdesivir. -Patient is on IV antibiotics and procalcitonin level is elevated, ID recommends to continue with IV antibiotics. ID said patient is not a candidate for Actemra because of the infection with elevated procalcitonin level. The high probability of a clinically significant, sudden or life threatening deterioration of the [respiratory] system(s) required my full and direct attenti on, intervention and personal management. The aggregate critical care time was [35] minutes. This time is in addition to time spent performing reported procedures but includes the following: [x] Data Review and interpretation [x] Patient assessment and monitoring of vital signs [x] Documentation [x] Medication orders and management History Interval history: Patient was seen and evaluated this morning Patient was anxious, she said her father is admitted to [facility] Patient was on BiPAP with FiO2 of 100% Hospitalist Physical - Physical exam Narrative exam: Patient was in distress, on BiPAP with FiO2 of 100% The patient appeared well nourished and normally developed. Vital signs as documented. Head exam is unremarkable. No scleral icterus . Neck is without jugular venous distension, thyromegaly, or carotid bruits. Lungs decreased air entry. Cardiac exam reveals regular rate and Rhythm. Abdominal exam reveals normal bowel sounds, nontender, no organomegaly. Extremities are nonedematous and both femoral and pedal pulses are normal. GAME ADVISOR: Alert and oriented 3. No focal weakness. - Constitutional Vitals: Temp Pulse Resp BP Pulse Ox 98.3 F 89 36 H 125/83 94 12/07/20 23:20 12/09/20 08:32 12/09/20 08:32 12/09/20 08:32 12/09/20 08:32 General appearance: Present: severe distress Results - Labs CBC & Chem 7: 12/09/20 04:33 12/09/20 09:13 Labs: Laboratory Last Values WBC 21.0 K/mm3 (4.5-11.0) H 12/09/20 04:33 RBC 5.12 M/mm3 (3.65-5.03) H 12/09/20 04:33 Hgb 8.2 gm/dl (10.1-14.3) L 12/09/20 04:33 Hct 29.1 % (30.3-42.9) L 12/09/20 04:33 MCV 57 fl (79-97) L 12/09/20 04:33 MCH 16 pg (28-32) L 12/09/20 04:33 MCHC 28 % (30-34) L 12/09/20 04:33 RDW 24.6 % (13.2-15.2) H 12/09/20 04:33 Plt Count 509 K/mm3 (140-440) H 12/09/20 04:33 [place] % (Auto) 6.0 % (0.0-7.3) 12/09/20 04:33 [place] # (Auto) 1.3 K/mm3 (0.0-0.8) H 12/09/20 04:33 Add Manual Diff Complete 12/08/20 00:15 Total Counted 100 12/08/20 00:15 Seg Neutrophils % 84.3 % (40.0-70.0) H 12/09/20 04:33 Seg Neuts % (Manual) 92.0 % (40.0-70.0) H 12/08/20 00:15 Band Neutrophils % 5.0 % 12/08/20 00:15 Lymphocytes % (Manual) 1.0 % (13.4-35.0) L 12/08/20 00:15 Monocytes % (Manual) 1.0 % (0.0-7.3) 12/08/20 00:15 Metamyelocytes % 1.0 % 12/08/20 00:15 Nucleated RBC % Not Reportable 12/08/20 00:15 Seg Neutrophils # 17.8 K/mm3 (1.8-7.7) H 12/09/20 04:33 Seg Neutrophils # Man 15.6 K/mm3 (1.8-7.7) H 12/08/20 00:15 Band Neutrophils # 0.9 K/mm3 12/08/20 00:15 Lymphocytes # (Manual) 0.2 K/mm3 (1.2-5.4) L 12/08/20 00:15 Abs React Lymphs (Man) 0.0 K/mm3 12/08/20 00:15 Monocytes # (Manual) 0.2 K/mm3 (0.0-0.8) 12/08/20 00:15 Eosinophils # (Manual) 0.0 K/mm3 (0.0-0.4) 12/08/20 00:15 Basophils # (Manual) 0.0 K/mm3 (0.0-0.1) 12/08/20 00:15 Metamyelocytes # 0.2 K/mm3 12/08/20 00:15 Myelocytes # 0.0 K/mm3 12/08/20 00:15 Promyelocytes # 0.0 K/mm3 12/08/20 00:15 Blast Cells # 0.0 K/mm3 12/08/20 00:15 WBC Morphology Not Reportable 12/08/20 00:15 Hypersegmented Neuts Not Reportable 12/08/20 00:15 Hyposegmented Neuts Not Reportable 12/08/20 00:15 Hypogranular Neuts Not Reportable 12/08/20 00:15 Smudge Cells Not Reportable 12/08/20 00:15 Toxic Granulation Not Reportable 12/08/20 00:15 Toxic Vacuolation Not Reportable 12/08/20 00:15 Dohle Bodies Not Reportable 12/08/20 00:15 Pelger-Huet Anomaly Not Reportable 12/08/20 00:15 Lauryn Rods Not Reportable 12/08/20 00:15 Platelet Estimate Consistent w auto 12/08/20 00:15 Clumped Platelets Not Reportable 12/08/20 00:15 Plt Clumps, EDTA Not Reportable 12/08/20 00:15 Large Platelets Not Reportable 12/08/20 00:15 Giant Platelets Not Reportable 12/08/20 00:15 Platelet Satelliting Not Reportable 12/08/20 00:15 Plt Morphology Comment Not Reportable 12/08/20 00:15 RBC Morphology Not Reportable 12/08/20 00:15 Dimorphic RBCs Not Reportable 12/08/20 00:15 Polychromasia 1+ 12/08/20 00:15 Hypochromasia 3+ 12/08/20 00:15 Poikilocytosis Not Reportable 12/08/20 00:15 Anisocytosis 2+ 12/08/20 00:15 Microcytosis Not Reportable 12/08/20 00:15 Macrocytosis Not Reportable 12/08/20 00:15 Spherocytes Not Reportable 12/08/20 00:15 Pappenheimer Bodies Not Reportable 12/08/20 00:15 Sickle Cells Not Reportable 12/08/20 00:15 Target Cells 2+ 12/08/20 00:15 Tear Drop Cells 1+ 12/08/20 00:15 Ovalocytes 1+ 12/08/20 00:15 Helmet Cells Not Reportable 12/08/20 00:15 [place] Bodies Not Reportable 12/08/20 00:15 Nakina Rings Not Reportable 12/08/20 00:15 Jens Cells Not Reportable 12/08/20 00:15 Bite Cells Not Reportable 12/08/20 00:15 Crenated Cell Not Reportable 12/08/20 00:15 Elliptocytes Not Reportable 12/08/20 00:15 Acanthocytes (Spur) Not Reportable 12/08/20 00:15 Rouleaux Not Reportable 12/08/20 00:15 Hemoglobin C Crystals Not Reportable 12/08/20 00:15 Schistocytes Not Reportable 12/08/20 00:15 Malaria parasites Not Reportable 12/08/20 00:15 Brant Bodies Not Reportable 12/08/20 00:15 Hem Pathologist Commnt No 12/08/20 00:15 PT 16.4 Sec. (12.2-14.9) H 12/08/20 00:15 INR 1.27 (0.87-1.13) H 12/08/20 00:15 APTT 29.6 Sec. (24.2-36.6) 12/08/20 00:15 D-Dimer 1129.87 ng/mlDDU (0-234) H 12/08/20 00:15 Sodium 139 mmol/L (137-145) 12/09/20 09:13 Potassium 3.7 mmol/L (3.6-5.0) 12/09/20 09:13 Chloride 100.4 mmol/L (98-107) 12/09/20 09:13 Carbon Dioxide 27 mmol/L (22-30) 12/09/20 09:13 Anion Gap 15 mmol/L 12/09/20 09:13 BUN 29 mg/dL (7-17) H 12/09/20 09:13 Creatinine 0.6 mg/dL (0.6-1.2) 12/09/20 09:13 Estimated GFR > 60 ml/min 12/09/20 09:13 BUN/Creatinine Ratio 48 % 12/09/20 09:13 Glucose 129 mg/dL (65-100) H 12/09/20 09:13 Lactic Acid 2.40 mmol/L (0.7-2.0) H* 12/08/20 09:49 Calcium 9.0 mg/dL (8.4-10.2) 12/09/20 09:13 Ferritin 289.8 ng/mL (10.0-200.0) H 12/08/20 00:15 Total Bilirubin 1.00 mg/dL (0.1-1.2) 12/09/20 09:13 AST 276 units/L (5-40) H 12/09/20 09:13 ALT 867 units/L (7-56) H 12/09/20 09:13 Alkaline Phosphatase 685 units/L (35-129) H 12/09/20 09:13 Lactate Dehydrogenase 608 units/L (91-180) H 12/08/20 00:15 C-Reactive Protein 20.70 mg/dL (0.00-1.30) H 12/08/20 00:15 Total Protein 7.4 g/dL (6.3-8.2) 12/09/20 09:13 Albumin 3.1 g/dL (3.9-5) L 12/09/20 09:13 Albumin/Globulin Ratio 0.7 % 12/09/20 09:13 Procalcitonin 21.55 ng/mL (<0.15) 12/08/20 00:15 Coronavirus (PCR) Positive (Negative) A 12/08/20 10:30 Microbiology: Microbiology 12/08/20 00:15 Peripheral/Venous Blood Culture - Preliminary NO GROWTH AFTER 24 HOURS 12/08/20 00:05 Peripheral/Venous Blood Culture - Preliminary NO GROWTH AFTER 24 HOURS Active Medications - Current Medications Current Medications: Generic Name Dose Route Start Last Admin Trade Name Freq PRN Reason Stop Dose Admin Acetaminophen 650 mg 12/08/20 05:31 Acetaminophen 325 Mg Tab PO Q4H PRN Pain MILD(1-3)/Fever >100.5/[place] Albuterol 2.5 mg 12/08/20 05:31 Albuterol 2.5 Mg/3 Ml Nebu IH Q4HRT PRN Shortness Of Breath Ascorbic Acid 500 mg 12/09/20 10:00 Ascorbic Acid 500 Mg Tab PO BID DARIAN Cholecalciferol 1,000 unit 12/09/20 10:00 Cholecalciferol (Vit D3) 1000 Unit (25 Mcg) Tab PO QDAY DARIAN Dexamethasone 6 mg 12/08/20 10:00 12/08/20 11:22 Dexamethasone 4 Mg/Ml Vial IV 12/17/20 10:01 6 mg DAILY DARIAN Administration Famotidine 20 mg 12/08/20 10:00 12/08/20 21:40 Famotidine 20 Mg Tab PO 20 mg BID DARIAN Administration Heparin Sodium (Porcine) 5,000 unit 12/08/20 06:00 12/08/20 21:40 Heparin 5,000 Unit/1 Ml Vial SUB-Q 5,000 unit Q8HR DARIAN Administration Hydromorphone HCl 0.5 mg 12/08/20 05:31 12/08/20 23:38 Hydromorphone 1 Mg/1 Ml Inj IV 0.5 mg Q3H PRN Administration Pain , Severe (7-10) Ceftriaxone Sodium 2 gm in 100 mls @ 200 mls/hr 12/08/20 22:00 12/08/20 21:40 Rocephin/Ns 2 Gm/100 Ml IV 200 mls/hr Q24H DARIAN Administration Protocol Azithromycin 500 mg in 250 mls @ 250 mls/hr 12/08/20 22:00 12/08/20 21:40 Zithromax/Ns IV 250 mls/hr Q24H DARIAN Administration Protocol REMDESIVIR 200 mg/ Sodium 250 mls @ 500 mls/hr 12/09/20 10:00 Chloride IV 12/09/20 10:29 ONCE ONE REMDESIVIR 100 mg/ Sodium 250 mls @ 500 mls/hr 12/10/20 21:00 Chloride IV 12/13/20 21:29 Q24HR@2100 DARIAN Ondansetron HCl 4 mg 12/08/20 05:31 Ondansetron 4 Mg/2 Ml Inj IV Q8H PRN Nausea And Vomiting Oxycodone/Acetaminophen 1 tab 12/08/20 05:31 Oxycodone /Acetaminophen 5-325mg Tab PO Q6H PRN Pain, Moderate (4-6) Sodium Chloride 10 ml 12/08/20 10:00 12/08/20 21:40 Sodium Chloride 0.9% 10 Ml Flush Syringe IV 10 ml BID DARIAN Administration Sodium Chloride 10 ml 12/08/20 05:31 Sodium Chloride 0.9% 10 Ml Flush Syringe IV PRN PRN LINE FLUSH Sodium Chloride 50 ml 12/10/20 21:00 Sodium Chloride 0.9% 50 Ml Ivpb IV 12/13/20 21:01 Q24HR@2100 DARIAN Sodium Chloride 50 ml 12/09/20 10:30 Sodium Chloride 0.9% 50 Ml Ivpb IV 12/09/20 10:31 Q24HR@2100 [facility] Zinc Sulfate 220 mg 12/09/20 10:00 Zinc Sulfate 220 Mg Cap PO QDAY DARIAN
[2020-12-09 10:27] LABS: Band Neutrophils # (Manual) 0.6 K/mm3; Total Cells Counted 100
[2020-12-09 10:28] LABS: Anisocytosis 2+; Hypochromasia 2+; Platelet Estimate Consistent w Auto; Tear Drop Cells Few
[2020-12-09] MEDS ORDERED: SODIUM CHLORIDE 0.9% 50 ML IVPB IV SCH (10:30)
[2020-12-09] MEDS: dexAMETHasone 4 MG/ML VIAL IV SCH (10:54)
[2020-12-09] MEDS: ZINC SULFATE 220 MG CAP PO SCH (10:55)
[2020-12-09] MEDS: CHOLECALCIFEROL (VIT D3) 1000 UNIT (25 mcg) TAB PO SCH (10:55)
[2020-12-09] MEDS: ASCORBIC ACID 500 MG TAB PO SCH ×2 (10:55→21:47)
[2020-12-09] MEDS: FAMOTIDINE 20 MG TAB PO SCH ×2 (10:55→21:47)
[2020-12-09] MEDS ORDERED: D5W/0.45% NACL 1,000 ML IV SCH (13:00)
[2020-12-09] MEDS: LORazepam 2 MG/ML VIAL IV PRN ×3 (13:46→23:49)
--- NOTE | 2020-12-09 16:07 | Consultation ---
History of Present Illness Consult date: 12/09/20 Requesting physician: MARIALUISA MCGREGOR Reason for consult: pneumonia, other (COVID-19 infection) History of present illness: PULMONARY/CCM CONSULT NOTE (Full dictation # [id number]) Please see dictated notes for full details Past History Past Medical History: hypertension Medications and Allergies Allergies Allergy/AdvReac Type Severity Reaction Status Date / Time No Known Allergies Allergy Verified 12/07/20 23:37 Home Medications Medication Instructions Recorded Confirmed Last Taken Type No Known Home Medications [No 12/08/20 12/08/20 Unknown History Reported Home Medications] Active Meds: Active Medications Acetaminophen (Acetaminophen 325 Mg Tab) 650 mg PO Q4H PRN PRN Reason: Pain MILD(1-3)/Fever >100.5/[place] Albuterol (Albuterol 2.5 Mg/3 Ml Nebu) 2.5 mg IH Q4HRT PRN PRN Reason: Shortness Of Breath Ascorbic Acid (Ascorbic Acid 500 Mg Tab) 500 mg PO BID [facility] Last Admin: 12/09/20 10:55 Dose: 500 mg Documented by: Cholecalciferol (Cholecalciferol (Vit D3) 1000 Unit (25 Mcg) Tab) 1,000 unit PO QDAY [facility] Last Admin: 12/09/20 10:55 Dose: 1,000 unit Documented by: Dexamethasone (Dexamethasone 4 Mg/Ml Vial) 6 mg IV DAILY [facility] Stop: 12/17/20 10:01 Last Admin: 12/09/20 10:54 Dose: 6 mg Documented by: Famotidine (Famotidine 20 Mg Tab) 20 mg PO BID [facility] Last Admin: 12/09/20 10:55 Dose: 20 mg Documented by: Heparin Sodium (Porcine) (Heparin 5,000 Unit/1 Ml Vial) 5,000 unit SUB-Q Q8HR [facility] Last Admin: 12/08/20 21:40 Dose: 5,000 unit Documented by: Hydromorphone HCl (Hydromorphone 1 Mg/1 Ml Inj) 0.5 mg IV Q3H PRN PRN Reason: Pain , Severe (7-10) Last Admin: 12/08/20 23:38 Dose: 0.5 mg Documented by: Ceftriaxone Sodium (Rocephin/Ns 2 Gm/100 Ml) 2 gm in 100 mls @ 200 mls/hr IV Q24H [facility]; Protocol Stop: 12/12/20 22:29 Last Admin: 12/08/20 21:40 Dose: 200 mls/hr Documented by: Azithromycin (Zithromax/Ns) 500 mg in 250 mls @ 250 mls/hr IV Q24H [facility]; Protocol Stop: 12/12/20 22:59 Last Admin: 12/08/20 21:40 Dose: 250 mls/hr Documented by: Dextrose/Sodium Chloride (D5/0.45ns) 1,000 mls @ 75 mls/hr IV DIRECT [facility] Last Admin: 12/09/20 13:46 Dose: 75 mls/hr Documented by: Lorazepam (Lorazepam 2 Mg/Ml Vial) 1 mg IV Q4H PRN PRN Reason: Anxiety Last Admin: 12/09/20 13:46 Dose: 1 mg Documented by: Ondansetron HCl (Ondansetron 4 Mg/2 Ml Inj) 4 mg IV Q8H PRN PRN Reason: Nausea And Vomiting Oxycodone/Acetaminophen (Oxycodone /Acetaminophen 5-325mg Tab) 1 tab PO Q6H PRN PRN Reason: Pain, Moderate (4-6) Sodium Chloride (Sodium Chloride 0.9% 10 Ml Flush Syringe) 10 ml IV BID [facility] Last Admin: 12/09/20 10:54 Dose: 10 ml Documented by: Sodium Chloride (Sodium Chloride 0.9% 10 Ml Flush Syringe) 10 ml IV PRN PRN PRN Reason: LINE FLUSH Sodium Chloride (Sodium Chloride 0.9% 50 Ml Ivpb) 50 ml IV Q24HR@2100 [facility] Stop: 12/13/20 21:01 Zinc Sulfate (Zinc Sulfate 220 Mg Cap) 220 mg PO QDAY [facility] Last Admin: 12/09/20 10:55 Dose: 220 mg Documented by: Physical Examination Vital signs: Vital Signs Pulse Resp Pulse Ox 97 H 51 H 97 12/07/20 22:34 12/07/20 22:34 12/07/20 22:34 Results - Laboratory Findings CBC and BMP: 12/09/20 04:33 12/09/20 09:13 PT/INR, D-dimer PT 16.4 Sec. (12.2-14.9) H 12/08/20 00:15 INR 1.27 (0.87-1.13) H 12/08/20 00:15 D-Dimer 1129.87 ng/mlDDU (0-234) H 12/08/20 00:15 Abnormal lab findings: Abnormal Labs 12/08/20 12/08/20 12/08/20 00:15 00:15 00:15 WBC 17.0 H RBC 5.40 H Hgb 8.3 L Hct 29.7 L MCV 55 L MCH 16 L MCHC 28 L RDW 25.0 H Plt Count 464 H [place] # (Auto) Seg Neutrophils % Seg Neuts % (Manual) 92.0 H Lymphocytes % (Manual) 1.0 L Nucleated RBC % Seg Neutrophils # Seg Neutrophils # Man 15.6 H Lymphocytes # (Manual) 0.2 L PT 16.4 H INR 1.27 H D-Dimer 1129.87 H Potassium 3.1 L BUN Glucose 128 H Lactic Acid Calcium 8.3 L Ferritin Total Bilirubin 1.90 H AST 309 H ALT 1384 H Alkaline Phosphatase 440 H Lactate Dehydrogenase C-Reactive Protein Albumin 3.2 L Coronavirus (PCR) 12/08/20 12/08/20 12/08/20 00:15 00:15 00:15 WBC RBC Hgb Hct MCV MCH MCHC RDW Plt Count [place] # (Auto) Seg Neutrophils % Seg Neuts % (Manual) Lymphocytes % (Manual) Nucleated RBC % Seg Neutrophils # Seg Neutrophils # Man Lymphocytes # (Manual) PT INR D-Dimer Potassium BUN Glucose Lactic Acid 2.30 H* Calcium Ferritin 289.8 H Total Bilirubin AST ALT Alkaline Phosphatase Lactate Dehydrogenase 608 H C-Reactive Protein 20.70 H Albumin Coronavirus (PCR) 12/08/20 12/08/20 12/08/20 02:16 09:49 10:30 WBC RBC Hgb Hct MCV MCH MCHC RDW Plt Count [place] # (Auto) Seg Neutrophils % Seg Neuts % (Manual) Lymphocytes % (Manual) Nucleated RBC % Seg Neutrophils # Seg Neutrophils # Man Lymphocytes # (Manual) PT INR D-Dimer Potassium BUN Glucose Lactic Acid 2.50 H* 2.40 H* Calcium Ferritin Total Bilirubin AST ALT Alkaline Phosphatase Lactate Dehydrogenase C-Reactive Protein Albumin Coronavirus (PCR) Positive A 12/09/20 12/09/20 12/09/20 04:33 04:33 09:13 WBC 21.0 H RBC 5.12 H Hgb 8.2 L Hct 29.1 L MCV 57 L MCH 16 L MCHC 28 L RDW 24.6 H Plt Count 509 H [place] # (Auto) 1.3 H Seg Neutrophils % 84.3 H Seg Neuts % (Manual) 93.0 H Lymphocytes % (Manual) 2.0 L Nucleated RBC % 2.0 H Seg Neutrophils # 17.8 H Seg Neutrophils # Man 19.5 H Lymphocytes # (Manual) 0.4 L PT INR D-Dimer Potassium 3.5 L BUN 30 H 29 H Glucose 190 H 129 H Lactic Acid Calcium Ferritin Total Bilirubin AST 276 H ALT 867 H Alkaline Phosphatase 685 H Lactate Dehydrogenase C-Reactive Protein Albumin 3.1 L Coronavirus (PCR)
[2020-12-09] MEDS: HEPARIN 5,000 UNIT/1 ML VIAL SUB-Q SCH ×3 (17:07→21:49)
--- NOTE | 2020-12-09 18:25 | Progress Note ---
Assessment and Plan Cultures: Blood culture no growth so far Covid positive A/P: 50-year-old female past medical history hypertension admitted with COVID-19 #Severe COVID-19 pneumonia: Patient presented with a week of symptoms, chest x- ray with diffuse bilateral infiltrates. Inflammatory markers elevated. No evidence of pulmonary embolism on CT #Acute hypoxemic respiratory failure: Likely secondary to COVID-19 infection. Currently on BiPAP #Elevated liver enzymes:-Secondary to COVID-19 Recs: -Dexamethasone 6 mg IV/PO daily for 10 days -Stop remdesivir due to elevated liver enzymes -With very high procalcitonin likely bacterial coinfection, as such not an Actemra candidate -Obtain q48-72h inflammatory markers - ferritin, Ddimer, CRP, LDH -Continue ceftriaxone 2 gm IV qday and azithromycin 500 mg PO qday to complete 5 days -Anticoagulation per hospital protocol -Proning as able Thank you for the consult, we will continue to follow. Dr. Hendrickson covering this weekend, Dr. Enamorado taking over Saturday. Odell Giles MD [facility] ([facility] O: [phone] F: [phone] Subjective Date of service: 12/09/20 Interval history: White count increased to 21, no new temperature is available for review. On BiPAP. Objective - Exam Narrative Exam: Physical exam deferred to reduce risk of transmission of COVID-19. Please refer to primary team's note. - Constitutional Vitals: Vital Signs Temp Pulse Resp BP Pulse Ox 98.3 F 106 H 28 H 140/93 78 L 12/07/20 23:20 12/09/20 17:31 12/09/20 17:31 12/09/20 17:31 12/09/20 17:31 - Labs CBC & Chem 7: 12/09/20 04:33 12/09/20 09:13 Labs: Abnormal lab results 12/09/20 12/09/20 12/09/20 Range/Units 04:33 04:33 09:13 WBC 21.0 H (4.5-11.0) K/mm3 RBC 5.12 H (3.65-5.03) M/mm3 Hgb 8.2 L (10.1-14.3) gm/dl Hct 29.1 L (30.3-42.9) % MCV 57 L (79-97) fl MCH 16 L (28-32) pg MCHC 28 L (30-34) % RDW 24.6 H (13.2-15.2) % Plt Count 509 H (140-440) K/mm3 [place] # (Auto) 1.3 H (0.0-0.8) K/mm3 Seg Neutrophils % 84.3 H (40.0-70.0) % Seg Neuts % (Manual) 93.0 H (40.0-70.0) % Lymphocytes % (Manual) 2.0 L (13.4-35.0) % Nucleated RBC % 2.0 H (0.0-0.9) % Seg Neutrophils # 17.8 H (1.8-7.7) K/mm3 Seg Neutrophils # Man 19.5 H (1.8-7.7) K/mm3 Lymphocytes # (Manual) 0.4 L (1.2-5.4) K/mm3 Potassium 3.5 L (3.6-5.0) mmol/L BUN 30 H 29 H (7-17) mg/dL Glucose 190 H 129 H (65-100) mg/dL AST 276 H (5-40) units/L ALT 867 H (7-56) units/L Alkaline Phosphatase 685 H (35-129) units/L Albumin 3.1 L (3.9-5) g/dL
[2020-12-09] MEDS: cefTRIAXone/NS 2 GM/100 ML 2 GM/100 ML BAG IV SCH (21:43)
[2020-12-09] MEDS: AZITHROMYCIN/NS 500 MG/250 ML 500 MG/250 ML BAG IV SCH (22:34)
[2020-12-10] MEDS: HEPARIN 5,000 UNIT/1 ML VIAL SUB-Q SCH ×3 (05:38→20:30)
[2020-12-10] MEDS ORDERED: SODIUM CHLORIDE 0.9% 1000 ML 1,000 ML IV ONE (06:19)
[2020-12-10 06:21] LABS: Albumin 2.9 g/dL (3.9-5); BUN/Creatinine Ratio 36; Blood Urea Nitrogen 25 mg/dL (7-17); Calcium 7.9 mg/dL (8.4-10.2); Hemolysis Index 0
[2020-12-10 06:34] LABS: Alanine Aminotransferase 722 units/L (7-56)
[2020-12-10] MEDS: HYDROmorphone 1 MG/1 ML INJ IV PRN (10:13)
--- NOTE | 2020-12-10 10:24 | Progress Note ---
Assessment and Plan Assessment and plan: (1) Acute respiratory failure Current Visit: Yes Status: Acute Plan to address problem: Admit the patient to the [facility]. Patient is on BiPAP. DuoNeb by nebulizer every 4 hours. Albuterol via nebulizer every 4 hours as needed. Rocephin 2 g IV daily. Zithromax 500 mils IV daily. Dexamethasone 6 mg IV daily. Blood cultures sputum culture. Reconsult pulmonary as well as infectious disease for evaluation. Follow the Covid inflammatory marker (2) COVID-19 Current Visit: Yes Status: Acute Plan to address problem: Patient is on BiPAP. DuoNeb by nebulizer every 4 hours. Albuterol via nebulizer every 4 hours as needed. Rocephin 2 g IV daily. Zithromax 500 mils IV daily. Dexamethasone 6 mg IV daily. Blood cultures sputum culture. Reconsult pulmonary as well as infectious disease for evaluation. Follow the Covid inflammatory marker (3) Pneumonia Current Visit: Yes Status: Acute Qualifiers: Pneumonia type: due to unspecified organism Laterality: bilateral Lung location: unspecified part of lung Qualified Code(s): J18.9 - Pneumonia, unspecified organism Plan to address problem: Rocephin 2 g IV daily. Zithromax 500 mils IV daily. Blood cultures sputum culture. Reconsult pulmonary as well as infectious disease for evaluation. (4) Hypertension Current Visit: Yes Status: Acute Plan to address problem: Hydralazine 10 mg IV every 6 hours as needed. We will monitor the blood pressure closely (5) DVT prophylaxis Current Visit: Yes Status: Acute Plan to address problem: Heparin 5000 units subcu every 8 hours for DVT prophylaxis. Pepcid 20 mg p.o. twice daily for GI prophylaxis. Patient is a full code. 12/09/2020 -Patient was on BiPAP with FiO2 of 100%, patient desaturated when she was off BiPAP momentarily. I put her on D5 half-normal saline for maintenance. Titrate oxygen as tolerated. -Pulmonary consulted, ID consulted. -Patient has elevated ALT and AST and is not a candidate for remdesivir. -Patient is on IV antibiotics and procalcitonin level is elevated, ID recommends to continue with IV antibiotics. ID said patient is not a candidate for Actemra because of the infection with elevated procalcitonin level. 12/10; patient is on BiPAP, on Decadron. Remdesivir discontinued due to elevated liver enzymes. Patient not a candidate for Actemra because patient has elevated procalcitonin level. Continue with IV antibiotics. Prognosis is guarded. The high probability of a clinically significant, sudden or life threatening deterioration of the [respiratory] system(s) required my full and direct attention, intervention and personal management. The aggregate critical care time was [35] minutes. This time is in addition to time spent performing reported procedures but includes the following: [x] Data Review and interpretation [x] Patient assessment and monitoring of vital signs [x] Documentation [x] Medication orders and management History Interval history: Patient was seen and evaluated this morning Patient was anxious, she said her father is admitted to [facility] Patient was on BiPAP with FiO2 of 100% Hospitalist Physical - Physical exam Narrative exam: Patient was in distress, on BiPAP with FiO2 of 100% The patient appeared well nourished and normally developed. Vital signs as documented. Head exam is unremarkable. No scleral icterus . Neck is without jugular venous distension, thyromegaly, or carotid bruits. Lungs decreased air entry. Cardiac exam reveals regular rate and Rhythm. Abdominal exam reveals normal bowel sounds, nontender, no organomegaly. Extremities are nonedematous and both femoral and pedal pulses are normal. 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 No focal weakness. - Constitutional Vitals: Temp Pulse Resp BP Pulse Ox 98.6 F 95 H 36 H 150/104 79 L 12/09/20 20:20 12/10/20 09:45 12/10/20 10:13 12/10/20 09:45 12/10/20 09:45 General appearance: Present: severe distress Results - Labs CBC & Chem 7: 12/09/20 04:33 12/10/20 05:04 Labs: Laboratory Last Values WBC 21.0 K/mm3 (4.5-11.0) H 12/09/20 04:33 RBC 5.12 M/mm3 (3.65-5.03) H 12/09/20 04:33 Hgb 8.2 gm/dl (10.1-14.3) L 12/09/20 04:33 Hct 29.1 % (30.3-42.9) L 12/09/20 04:33 MCV 57 fl (79-97) L 12/09/20 04:33 MCH 16 pg (28-32) L 12/09/20 04:33 MCHC 28 % (30-34) L 12/09/20 04:33 RDW 24.6 % (13.2-15.2) H 12/09/20 04:33 Plt Count 509 K/mm3 (140-440) H 12/09/20 04:33 [place] % (Auto) 6.0 % (0.0-7.3) 12/09/20 04:33 [place] # (Auto) 1.3 K/mm3 (0.0-0.8) H 12/09/20 04:33 Add Manual Diff Complete 12/09/20 04:33 Total Counted 100 12/09/20 04:33 Seg Neutrophils % 84.3 % (40.0-70.0) H 12/09/20 04:33 Seg Neuts % (Manual) 93.0 % (40.0-70.0) H 12/09/20 04:33 Band Neutrophils % 3.0 % 12/09/20 04:33 Lymphocytes % (Manual) 2.0 % (13.4-35.0) L 12/09/20 04:33 Monocytes % (Manual) 2.0 % (0.0-7.3) 12/09/20 04:33 Metamyelocytes % 1.0 % 12/08/20 00:15 Nucleated RBC % 2.0 % (0.0-0.9) H 12/09/20 04:33 Seg Neutrophils # 17.8 K/mm3 (1.8-7.7) H 12/09/20 04:33 Seg Neutrophils # Man 19.5 K/mm3 (1.8-7.7) H 12/09/20 04:33 Band Neutrophils # 0.6 K/mm3 12/09/20 04:33 Lymphocytes # (Manual) 0.4 K/mm3 (1.2-5.4) L 12/09/20 04:33 Abs React Lymphs (Man) 0.0 K/mm3 12/09/20 04:33 Monocytes # (Manual) 0.4 K/mm3 (0.0-0.8) 12/09/20 04:33 Eosinophils # (Manual) 0.0 K/mm3 (0.0-0.4) 12/09/20 04:33 Basophils # (Manual) 0.0 K/mm3 (0.0-0.1) 12/09/20 04:33 Metamyelocytes # 0.0 K/mm3 12/09/20 04:33 Myelocytes # 0.0 K/mm3 12/09/20 04:33 Promyelocytes # 0.0 K/mm3 12/09/20 04:33 Blast Cells # 0.0 K/mm3 12/09/20 04:33 WBC Morphology Not Reportable 12/09/20 04:33 Hypersegmented Neuts Not Reportable 12/09/20 04:33 Hyposegmented Neuts Not Reportable 12/09/20 04:33 Hypogranular Neuts Not Reportable 12/09/20 04:33 Smudge Cells Not Reportable 12/09/20 04:33 Toxic Granulation Not Reportable 12/09/20 04:33 Toxic Vacuolation Not Reportable 12/09/20 04:33 Dohle Bodies Not Reportable 12/09/20 04:33 Pelger-Huet Anomaly Not Reportable 12/09/20 04:33 Lauryn Rods Not Reportable 12/09/20 04:33 Platelet Estimate Consistent w auto 12/09/20 04:33 Clumped Platelets Not Reportable 12/09/20 04:33 Plt Clumps, EDTA Not Reportable 12/09/20 04:33 Large Platelets Not Reportable 12/09/20 04:33 Giant Platelets Not Reportable 12/09/20 04:33 Platelet Satelliting Not Reportable 12/09/20 04:33 Plt Morphology Comment Not Reportable 12/09/20 04:33 RBC Morphology Not Reportable 12/09/20 04:33 Dimorphic RBCs Not Reportable 12/09/20 04:33 Polychromasia Not Reportable 12/09/20 04:33 Hypochromasia 2+ 12/09/20 04:33 Poikilocytosis Not Reportable 12/09/20 04:33 Anisocytosis 2+ 12/09/20 04:33 Microcytosis 2+ 12/09/20 04:33 Macrocytosis Not Reportable 12/09/20 04:33 Spherocytes Not Reportable 12/09/20 04:33 Pappenheimer Bodies Not Reportable 12/09/20 04:33 Sickle Cells Not Reportable 12/09/20 04:33 Target Cells Not Reportable 12/09/20 04:33 Tear Drop Cells Few 12/09/20 04:33 Ovalocytes Not Reportable 12/09/20 04:33 Helmet Cells Not Reportable 12/09/20 04:33 [place] Bodies Not Reportable 12/09/20 04:33 [place] Rings Not Reportable 12/09/20 04:33 [place] Cells Not Reportable 12/09/20 04:33 Bite Cells Not Reportable 12/09/20 04:33 Crenated Cell Not Reportable 12/09/20 04:33 Elliptocytes Few 12/09/20 04:33 Acanthocytes (Spur) Not Reportable 12/09/20 04:33 Rouleaux Not Reportable 12/09/20 04:33 Hemoglobin C Crystals Not Reportable 12/09/20 04:33 Schistocytes Not Reportable 12/09/20 04:33 Malaria parasites Not Reportable 12/09/20 04:33 Brant Bodies Not Reportable 12/09/20 04:33 Hem Pathologist Commnt No 12/09/20 04:33 PT 16.4 Sec. (12.2-14.9) H 12/08/20 00:15 INR 1.27 (0.87-1.13) H 12/08/20 00:15 APTT 29.6 Sec. (24.2-36.6) 12/08/20 00:15 D-Dimer 1129.87 ng/mlDDU (0-234) H 12/08/20 00:15 ABG pH 7.449 (7.320-7.450) 12/10/20 08:45 POC ABG pCO2 36.5 mmHg (32.0-48.0) 12/10/20 08:45 POC ABG pO2 64.5 mmHg (83-108) L 12/10/20 08:45 POC ABG HCO3 24.7 12/10/20 08:45 ABG O2 Saturation 91.0 (0-100) 12/10/20 08:45 POC ABG Base Excess 0.8 12/10/20 08:45 ABG Hemoglobin 7.6 (12.0-17.5) L 12/10/20 08:45 ABG Oxyhemoglobin 90.2 (94-98) L 12/10/20 08:45 ABG Methemoglobin 0.1 (0.0-1.5) 12/10/20 08:45 ABG Sodium 139.9 mmol/L (136.0-145.0) 12/10/20 08:45 ABG Potassium 3.3 mmol/L (3.40-4.50) L 12/10/20 08:45 ABG Chloride 108.0 mmol/L (98-107) H 12/10/20 08:45 ABG Glucose 126 mg/dL (65-95) H 12/10/20 08:45 Carboxyhemoglobin 0.8 (0.5-1.5) 12/10/20 08:45 FiO2 % 35.0 12/10/20 08:45 Sodium 140 mmol/L (137-145) 12/10/20 05:04 Potassium 3.4 mmol/L (3.6-5.0) L 12/10/20 05:04 Chloride 103.9 mmol/L (98-107) 12/10/20 05:04 Carbon Dioxide 25 mmol/L (22-30) 12/10/20 05:04 Anion Gap 15 mmol/L 12/10/20 05:04 BUN 25 mg/dL (7-17) H 12/10/20 05:04 Creatinine 0.7 mg/dL (0.6-1.2) 12/10/20 05:04 Estimated GFR > 60 ml/min 12/10/20 05:04 BUN/Creatinine Ratio 36 % 12/10/20 05:04 Glucose 184 mg/dL (65-100) H 12/10/20 05:04 Lactic Acid 2.10 mmol/L (0.7-2.0) H* 12/10/20 08:11 Calcium 7.9 mg/dL (8.4-10.2) L 12/10/20 05:04 Ferritin 289.8 ng/mL (10.0-200.0) H 12/08/20 00:15 Total Bilirubin 0.70 mg/dL (0.1-1.2) 12/10/20 05:04 AST 277 units/L (5-40) H 12/10/20 05:04 ALT 722 units/L (7-56) H 12/10/20 05:04 Alkaline Phosphatase 773 units/L (35-129) H 12/10/20 05:04 Lactate Dehydrogenase 608 units/L (91-180) H 12/08/20 00:15 C-Reactive Protein 20.70 mg/dL (0.00-1.30) H 12/08/20 00:15 Total Protein 7.0 g/dL (6.3-8.2) 12/10/20 05:04 Albumin 2.9 g/dL (3.9-5) L 12/10/20 05:04 Albumin/Globulin Ratio 0.7 % 12/10/20 05:04 Procalcitonin 21.55 ng/mL (<0.15) 12/08/20 00:15 Arterial Blood Glucose 126 mg/dL (65-95) H 12/10/20 08:45 Coronavirus (PCR) Positive (Negative) A 12/08/20 10:30 Microbiology: Microbiology 12/08/20 00:15 Peripheral/Venous Blood Culture - Preliminary NO GROWTH AFTER 48 HOURS 12/08/20 00:05 Peripheral/Venous Blood Culture - Preliminary NO GROWTH AFTER 48 HOURS Active Medications - Current Medications Current Medications: Generic Name Dose Route Start Last Admin Trade Name Freq PRN Reason Stop Dose Admin Acetaminophen 650 mg 12/08/20 05:31 Acetaminophen 325 Mg Tab PO Q4H PRN Pain MILD(1-3)/Fever >100.5/[place] Albuterol 2.5 mg 12/08/20 05:31 Albuterol 2.5 Mg/3 Ml Nebu IH Q4HRT PRN Shortness Of Breath Ascorbic Acid 500 mg 12/09/20 10:00 12/09/20 21:47 Ascorbic Acid 500 Mg Tab PO 500 mg BID DARIAN Administration Cholecalciferol 1,000 unit 12/09/20 10:00 12/09/20 10:55 Cholecalciferol (Vit D3) 1000 Unit (25 Mcg) Tab PO 1,000 unit QDAY DARIAN Administration Dexamethasone 6 mg 12/08/20 10:00 12/09/20 10:54 Dexamethasone 4 Mg/Ml Vial IV 12/17/20 10:01 6 mg DAILY DARIAN Administration Famotidine 20 mg 12/08/20 10:00 12/09/20 21:47 Famotidine 20 Mg Tab PO 20 mg BID DARIAN Administration Heparin Sodium (Porcine) 5,000 unit 12/08/20 06:00 12/10/20 05:38 Heparin 5,000 Unit/1 Ml Vial SUB-Q 5,000 unit Q8HR DARIAN Administration Hydromorphone HCl 0.5 mg 12/08/20 05:31 12/10/20 10:13 Hydromorphone 1 Mg/1 Ml Inj IV 0.5 mg Q3H PRN Administration Pain , Severe (7-10) Ceftriaxone Sodium 2 gm in 100 mls @ 200 mls/hr 12/08/20 22:00 12/09/20 21:43 Rocephin/Ns 2 Gm/100 Ml IV 12/12/20 22:29 200 mls/hr Q24H DARIAN Administration Protocol Azithromycin 500 mg in 250 mls @ 250 mls/hr 12/08/20 22:00 12/09/20 22:34 Zithromax/Ns IV 12/12/20 22:59 250 mls/hr Q24H DARIAN Administration Protocol Dextrose/Sodium Chloride 1,000 mls @ 75 mls/hr 12/09/20 13:00 12/09/20 13:46 D5/0.45ns IV 75 mls/hr DIRECT DARIAN Administration Lorazepam 1 mg 12/09/20 13:02 12/09/20 23:49 Lorazepam 2 Mg/Ml Vial IV 1 mg Q4H PRN Administration Anxiety Ondansetron HCl 4 mg 12/08/20 05:31 Ondansetron 4 Mg/2 Ml Inj IV Q8H PRN Nausea And Vomiting Oxycodone/Acetaminophen 1 tab 12/08/20 05:31 Oxycodone /Acetaminophen 5-325mg Tab PO Q6H PRN Pain, Moderate (4-6) Sodium Chloride 10 ml 12/08/20 10:00 12/09/20 21:49 Sodium Chloride 0.9% 10 Ml Flush Syringe IV 10 ml BID DARIAN Administration Sodium Chloride 10 ml 12/08/20 05:31 Sodium Chloride 0.9% 10 Ml Flush Syringe IV PRN PRN LINE FLUSH Sodium Chloride 50 ml 12/10/20 21:00 Sodium Chloride 0.9% 50 Ml Ivpb IV 12/13/20 21:01 Q24HR@2100 DARIAN Zinc Sulfate 220 mg 12/09/20 10:00 12/09/20 10:55 Zinc Sulfate 220 Mg Cap PO 220 mg QDAY DARIAN Administration
[2020-12-10] MEDS: dexAMETHasone 4 MG/ML VIAL IV SCH (10:30)
[2020-12-10] MEDS: ASCORBIC ACID 500 MG TAB PO SCH ×2 (10:48→22:45)
[2020-12-10] MEDS: FAMOTIDINE 20 MG TAB PO SCH ×2 (10:48→20:30)
[2020-12-10] MEDS: ZINC SULFATE 220 MG CAP PO SCH (10:49)
[2020-12-10] MEDS: CHOLECALCIFEROL (VIT D3) 1000 UNIT (25 mcg) TAB PO SCH (10:49)
--- NOTE | 2020-12-10 14:31 | Progress Note ---
Assessment and Plan Acute hypoxemic respiratory failure COVID-19 infection Bilateral pneumonia Elevated serum transaminases Sepsis Anemia that is microcytic Thrombocytosis Lactic acidosis - dopplers negative for VTE - continue NIV qhs with prn daytime use - trend LFT's - continue aspiration precautions - continue to wean supplemental oxygen for target O2 sat's > 92% acutely - bronchodilators with pulmonary hygiene per RT - avoid nephrotoxins, renally dose all medications - avoid benzodiazepine's, reduce the possibility of delirium - complete antiinfective's per ID rec's - prn analgesia per pain score - Maintenance of sleep-wake cycle, avoid delirium - G.I. & VTE prophylaxis - PT/OT/ROM exercises - continue mobility protocols for pressure ulcer prophylaxis - Monitor hemodynamics closely - continue other care per attending / other consultants - discharge planning ongoing concurrently COVID SPECIFIC INTERVENTIONS - Remdesivir as per ID/Pulmonary developed protocols (not a candidate re: LFT's) - continue systemic steroids for severe COVID-19 infection - follow repeat COVID tests results - zinc and vitamin C supplementation - Monitor inflammatory markers per facility protocol - ferritin, Ddimer, CRP - therapeutic anticoagulation per system Protocol based on d-dimer and clinical considerations (VTE prophylaxis) - Continue contact and airborne isolation .... Re-evaluate in am & prn CONDITION: CRITICAL PROGNOSIS: GUARDED CODE STATUS: FULL CODE The high probability of a clinically significant, sudden or life-threatening deterioration of the [respiratory, cardiovascular & neurologic] system(s) required my full and direct attention, intervention and personal management. The aggregate critical care time was [34] minutes without overlap. Time includes spent on; [x] Data Review and interpretation [x] Patient assessment and monitoring of vital signs [x] Documentation [x] Medication orders and management Subjective Date of service: 12/10/20 Principal diagnosis: Ac hypoxemic resp failure; COVID-19 infxn; Pneumonia; Sepsis Interval history: Patient is seen today for: Acute hypoxemic respiratory failure; COVID-19 infection; Bilateral pneumonia; Elevated serum transaminases; Sepsis; Lactic acidosis Seen and examined at bedside; 24hour events reviewed; nursing and respiratory care staff consulted; no adverse overnight events reported to me; resting peacefully in bed; looks and feels much better; FiO2 down to 60%; No N/V/F/C Objective Vital Signs - 12hr 12/10/20 12/10/20 12/10/20 02:45 02:50 03:15 Pulse Rate 83 99 H 82 Respiratory 35 H 36 H 35 H Rate Blood Pressure 131/87 131/87 O2 Sat by Pulse 99 99 98 Oximetry 12/10/20 12/10/20 12/10/20 03:31 04:15 04:32 Pulse Rate 80 78 111 H Respiratory 34 H 33 H 15 Rate Blood Pressure 131/87 132/90 132/90 O2 Sat by Pulse 99 99 Oximetry 12/10/20 12/10/20 12/10/20 04:45 05:01 05:15 Pulse Rate 88 82 79 Respiratory Rate Blood Pressure 145/94 139/89 132/90 O2 Sat by Pulse 94 98 99 Oximetry 12/10/20 12/10/20 12/10/20 05:31 05:45 06:01 Pulse Rate 81 80 82 Respiratory Rate Blood Pressure 131/84 131/84 127/84 O2 Sat by Pulse 99 98 99 Oximetry 12/10/20 12/10/20 12/10/20 06:09 07:01 07:15 Pulse Rate 107 H 76 Respiratory 22 Rate Blood Pressure 149/95 149/95 O2 Sat by Pulse 100 100 Oximetry 12/10/20 12/10/20 12/10/20 07:31 07:45 08:00 Pulse Rate 70 70 75 Respiratory 42 H Rate Blood Pressure 146/97 146/97 155/93 O2 Sat by Pulse 100 100 96 Oximetry 12/10/20 12/10/20 12/10/20 08:01 08:15 08:31 Pulse Rate 70 79 81 Respiratory Rate Blood Pressure 155/93 146/97 158/98 O2 Sat by Pulse 100 96 99 Oximetry 12/10/20 12/10/20 12/10/20 08:45 08:59 09:01 Pulse Rate 84 73 Respiratory Rate Blood Pressure 158/98 164/102 O2 Sat by Pulse 92 98 100 Oximetry 12/10/20 12/10/20 12/10/20 09:15 09:31 09:45 Pulse Rate 75 92 H 95 H Respiratory Rate Blood Pressure 164/102 150/104 150/104 O2 Sat by Pulse 100 86 79 L Oximetry 12/10/20 12/10/20 12/10/20 10:01 10:13 10:15 Pulse Rate 88 90 Respiratory 36 H Rate Blood Pressure 152/96 152/96 O2 Sat by Pulse 88 99 Oximetry 12/10/20 12/10/20 12/10/20 10:31 10:45 11:01 Pulse Rate 91 H 87 91 H Respiratory Rate Blood Pressure 163/94 163/94 173/111 O2 Sat by Pulse 100 100 99 Oximetry 12/10/20 12/10/20 12/10/20 11:15 11:31 11:45 Pulse Rate 93 H 91 H 87 Respiratory Rate Blood Pressure 173/111 159/101 159/101 O2 Sat by Pulse 92 96 97 Oximetry 12/10/20 12/10/20 12/10/20 12:01 12:15 12:31 Pulse Rate 89 86 99 H Respiratory Rate Blood Pressure 166/103 166/103 165/98 O2 Sat by Pulse 97 96 90 Oximetry 12/10/20 12/10/20 12/10/20 12:45 13:01 13:15 Pulse Rate 103 H 102 H 110 H Respiratory Rate Blood Pressure 165/98 159/93 159/93 O2 Sat by Pulse 80 L 85 89 Oximetry 12/10/20 13:31 Pulse Rate 93 H Respiratory Rate Blood Pressure 156/95 O2 Sat by Pulse 97 Oximetry Constitutional: appears uncomfortable, other (middle aged female with mildly increased respiratory effort at rest) Eyes: non-icteric ENT: oropharynx moist Neck: supple, no lymphadenopathy, no JVD Effort: mildly labored Ascultation: Bilateral: rhonchi Percussion: Bilateral: not dull Cardiovascular: regular rate and rhythm Gastrointestinal: normoactive bowel sounds, soft, non-tender, non-distended Integumentary: normal Extremities: no cyanosis, no edema, pulses normal, no ischemia or petechiae Neurologic: normal mental status, non-focal exam, pupils equal and round, CN II- XII normal, motor strength normal and Psychiatric: mood appropriate, affect normal CBC and BMP: 12/09/20 04:33 12/11/20 05:34 ABG, PT/INR, D-dimer: ABG ABG pH 7.449 (7.320-7.450) 12/10/20 08:45 POC ABG pCO2 36.5 mmHg (32.0-48.0) 12/10/20 08:45 POC ABG pO2 64.5 mmHg (83-108) L 12/10/20 08:45 POC ABG HCO3 24.7 12/10/20 08:45 ABG O2 Saturation 91.0 (0-100) 12/10/20 08:45 PT/INR, D-dimer PT 16.4 Sec. (12.2-14.9) H 12/08/20 00:15 INR 1.27 (0.87-1.13) H 12/08/20 00:15 D-Dimer 1129.87 ng/mlDDU (0-234) H 12/08/20 00:15 Abnormal lab findings: Abnormal Labs 12/08/20 12/08/20 12/08/20 00:15 00:15 00:15 WBC 17.0 H RBC 5.40 H Hgb 8.3 L Hct 29.7 L MCV 55 L MCH 16 L MCHC 28 L RDW 25.0 H Plt Count 464 H [place] # (Auto) Seg Neutrophils % Seg Neuts % (Manual) 92.0 H Lymphocytes % (Manual) 1.0 L Nucleated RBC % Seg Neutrophils # Seg Neutrophils # Man 15.6 H Lymphocytes # (Manual) 0.2 L PT 16.4 H INR 1.27 H D-Dimer 1129.87 H POC ABG pO2 ABG Hemoglobin ABG Oxyhemoglobin ABG Potassium ABG Chloride ABG Glucose Potassium 3.1 L BUN Glucose 128 H Lactic Acid Calcium 8.3 L Ferritin Total Bilirubin 1.90 H AST 309 H ALT 1384 H Alkaline Phosphatase 440 H Lactate Dehydrogenase C-Reactive Protein Albumin 3.2 L Arterial Blood Glucose Coronavirus (PCR) 12/08/20 12/08/20 12/08/20 00:15 00:15 00:15 WBC RBC Hgb Hct MCV MCH MCHC RDW Plt Count [place] # (Auto) Seg Neutrophils % Seg Neuts % (Manual) Lymphocytes % (Manual) Nucleated RBC % Seg Neutrophils # Seg Neutrophils # Man Lymphocytes # (Manual) PT INR D-Dimer POC ABG pO2 ABG Hemoglobin ABG Oxyhemoglobin ABG Potassium ABG Chloride ABG Glucose Potassium BUN Glucose Lactic Acid 2.30 H* Calcium Ferritin 289.8 H Total Bilirubin AST ALT Alkaline Phosphatase Lactate Dehydrogenase 608 H C-Reactive Protein 20.70 H Albumin Arterial Blood Glucose Coronavirus (PCR) 12/08/20 12/08/20 12/08/20 02:16 09:49 10:30 WBC RBC Hgb Hct MCV MCH MCHC RDW Plt Count [place] # (Auto) Seg Neutrophils % Seg Neuts % (Manual) Lymphocytes % (Manual) Nucleated RBC % Seg Neutrophils # Seg Neutrophils # Man Lymphocytes # (Manual) PT INR D-Dimer POC ABG pO2 ABG Hemoglobin ABG Oxyhemoglobin ABG Potassium ABG Chloride ABG Glucose Potassium BUN Glucose Lactic Acid 2.50 H* 2.40 H* Calcium Ferritin Total Bilirubin AST ALT Alkaline Phosphatase Lactate Dehydrogenase C-Reactive Protein Albumin Arterial Blood Glucose Coronavirus (PCR) Positive A 12/09/20 12/09/20 12/09/20 04:33 04:33 09:13 WBC 21.0 H RBC 5.12 H Hgb 8.2 L Hct 29.1 L MCV 57 L MCH 16 L MCHC 28 L RDW 24.6 H Plt Count 509 H [place] # (Auto) 1.3 H Seg Neutrophils % 84.3 H Seg Neuts % (Manual) 93.0 H Lymphocytes % (Manual) 2.0 L Nucleated RBC % 2.0 H Seg Neutrophils # 17.8 H Seg Neutrophils # Man 19.5 H Lymphocytes # (Manual) 0.4 L PT INR D-Dimer POC ABG pO2 ABG Hemoglobin ABG Oxyhemoglobin ABG Potassium ABG Chloride ABG Glucose Potassium 3.5 L BUN 30 H 29 H Glucose 190 H 129 H Lactic Acid Calcium Ferritin Total Bilirubin AST 276 H ALT 867 H Alkaline Phosphatase 685 H Lactate Dehydrogenase C-Reactive Protein Albumin 3.1 L Arterial Blood Glucose Coronavirus (PCR) 12/09/20 12/10/20 12/10/20 19:16 05:04 05:04 WBC RBC Hgb Hct MCV MCH MCHC RDW Plt Count [place] # (Auto) Seg Neutrophils % Seg Neuts % (Manual) Lymphocytes % (Manual) Nucleated RBC % Seg Neutrophils # Seg Neutrophils # Man Lymphocytes # (Manual) PT INR D-Dimer POC ABG pO2 ABG Hemoglobin ABG Oxyhemoglobin ABG Potassium ABG Chloride ABG Glucose Potassium 3.4 L BUN 25 H Glucose 184 H Lactic Acid 2.80 H* 3.30 H* Calcium 7.9 L Ferritin Total Bilirubin AST 277 H ALT 722 H Alkaline Phosphatase 773 H Lactate Dehydrogenase C-Reactive Protein Albumin 2.9 L Arterial Blood Glucose Coronavirus (PCR) 12/10/20 12/10/20 12/10/20 08:11 08:45 11:15 WBC RBC Hgb Hct MCV MCH MCHC RDW Plt Count [place] # (Auto) Seg Neutrophils % Seg Neuts % (Manual) Lymphocytes % (Manual) Nucleated RBC % Seg Neutrophils # Seg Neutrophils # Man Lymphocytes # (Manual) PT INR D-Dimer POC ABG pO2 64.5 L ABG Hemoglobin 7.6 L ABG Oxyhemoglobin 90.2 L ABG Potassium 3.3 L ABG Chloride 108.0 H ABG Glucose 126 H Potassium BUN Glucose Lactic Acid 2.10 H* 2.40 H* Calcium Ferritin Total Bilirubin AST ALT Alkaline Phosphatase Lactate Dehydrogenase C-Reactive Protein Albumin Arterial Blood Glucose 126 H Coronavirus (PCR) Chest x-ray: other (none today) Allied health notes reviewed: nursing
--- NOTE | 2020-12-10 15:15 | Consultation ---
DATE OF CONSULTATION: 12/09/2020 PULMONARY CRITICAL CARE CONSULT NOTE CONSULTING PHYSICIAN: Dr. Lantigua. REASON FOR CONSULTATION: COVID-19 infection, acute hypoxemic respiratory failure. CHIEF COMPLAINT AND HISTORY OF PRESENT ILLNESS: As follows: The patient is a now 50-year-old female with a past medical history significant for a diagnosis of hypertension, who was brought to the Emergency Room complaining of shortness of breath, cough, fevers. She apparently had been checked on the outpatient side and had been found to be COVID-19 a week before presentation. She had not seen any physician. She did not get her COVID-19 vaccination. She did not measure her fevers, but she has been taking Tylenol for it. Her cough was mostly dry. She denied any gross or streaky hemoptysis. She denied any new-onset leg pain or swelling, either unilaterally or bilaterally or any suggestion of COVID-19. In the Emergency Room, she was evaluated, found to have bilateral pneumonia. She was hypoxemic, O2 sats of 82% on room air, white count of 17,000. We are asked to assist with management. When I stopped by to see her, she was resting in bed, had just been placed on the bilevel positive airway pressure ventilation machine and was drifting off back to sleep. She denied any nausea or vomiting at home. She denied any diarrhea. Now with regards to tobacco use or abuse, she denies any history of tobacco use or abuse whatsoever. PAST MEDICAL HISTORY: Hypertension. PAST SURGICAL HISTORY: Denies. MEDICATIONS: She was on at the time I stopped by to see were reviewed. Pertinent medications include the following: Tylenol 650 mg p.o. q.4 hours p.r.n. mild pain or fever, albuterol 2.5 mg nebulized q.4 hours p.r.n. shortness of breath, vitamin C 500 mg p.o. b.i.d., Zithromax 500 mg IV daily, Rocephin 2 g IV daily, vitamin D3 1000 units p.o. daily, Decadron 6 mg IV daily, D5 half NS at 75 mL/hour, Pepcid 20 mg p.o. b.i.d., heparin 5000 units subcutaneous q.8 hours, Dilaudid 0.5 mg IV q.3 hours p.r.n. severe pain, Ativan 1 mg IV q.4 hours p.r.n. anxiety and Zofran 4 mg IV q 8 hours p.r.n. nausea and vomiting and Percocet 5/325 mg 1 tablet p.o. q.6 hours p.r.n. moderate pain. Zinc sulfate 220 mg p.o. daily. ALLERGIES: No known drug allergies. DIET: Well-built lady, acute weight loss or gain history she denies. FAMILY AND SOCIAL HISTORY: Lives in the community. Denies alcohol, tobacco or illicit drug use or abuse. Family history is otherwise noncontributory. REVIEW OF SYSTEMS: Difficult to obtain secondary to the patient's medical and mental condition. She is currently BiPAP dependent. Denied gross hematochezia or melena. Denied gross hematuria or dysuria. No hematemesis, no hemoptysis. No new-onset seizures. Complete 13 system review of systems was obtained as best as I could. Pertinent positives and/or negatives as in body of history above, otherwise they are noncontributory. PHYSICAL EXAMINATION: VITAL SIGNS: At presentation in the Emergency Room, review of vital signs show that she was afebrile, temperature 98.3 degrees Fahrenheit, pulse of 97, respiratory rate was 48 at presentation, blood pressure was 167/104, O2 sats were 97%, inspired oxygen concentration at that time was not recorded. When I stopped by to see her, O2 sats were 98% that was on the bilevel positive airway pressure ventilation mask, IPAP 12, EPAP of 6 and 50% FiO2. GENERAL: She is a middle-aged female. Normocephalic, atraumatic on the noninvasive ventilator with mildly increased respiratory effort at rest. HEAD, EYES, EARS, NOSE AND THROAT: Anicteric. No conjunctival erythema. Oropharynx was moist. NECK: No gross jugular venous distention, no thyromegaly. Grossly, there were no palpable lymph nodes in the supraclavicular or submandibular lymph node chains. LUNGS: Auscultation of both lung jett significant for bibasilar rhonchi. No wheezing. HEART: Heart sounds 1 and 2 are heard. There were regular rate and rhythm at the time of my evaluation without overt rubs or murmurs. ABDOMEN: Soft, full, bowel sounds are positive, nontender, no palpable hepatosplenomegaly. EXTREMITIES: Without overt digital clubbing or cyanosis. No pedal edema. Pedal pulses are 2+ bilaterally. NEUROLOGIC:AL Pupils are equal, round, about 3 mm, reactive to light. Extraocular muscle movements were intact. She has spontaneous movements to all 4 extremities. SKIN: Normal turgor in the areas examined without overt cellulitis or rash. Please see the wound care nurses' notes for full description of her skin. PSYCHIATRIC: Mood and affect were depressed. She had intact judgment and insight. LABORATORY DATA: From my review as follows: Admission white cell count 17,000, hemoglobin 8.3, hematocrit 29.7, platelet count 464, 5% band forms on the manual differential. INR 1.27. D-dimer was elevated at 1130. Serum sodium was 139, potassium 3.1, chloride 101, bicarbonate 24. BUN 17, creatinine 0.6. Glucose 124. Lactic acid level was 2.4. Ferritin was up at 290, total bilirubin 1.9, AST 309, ALT 1384. CRP 20.7. Procalcitonin 21.55 and coronavirus PCR was positive. Two sets of blood cultures are no growth to date. Chest x-ray shows bilateral pulmonary infiltrates, no overt cardiomegaly, mild element of hypoventilation. A CT angiogram was also done of the chest. I have reviewed the study, not the best contrast phase timing, difficult to exclude lower order pulmonary emboli with certainly no large pulmonary emboli. She does have bilateral pulmonary infiltrates with significant consolidation, mostly in the bases bilaterally. Significant ground-glass opacification affecting really the whole lung, but sparing the apices to a certain extent. Lower extremity Dopplers are negative bilaterally. ASSESSMENT: 1. Acute hypoxemic respiratory failure, on continuous noninvasive ventilation. 2. COVID-19 infection. 3. Bilateral pneumonia. 4. Elevated serum transaminases. 5. Sepsis. 6. Anemia that is microcytic. 7. Thrombocytosis. 8. Lactic acidosis. PLAN: I do agree with current treatment. Unfortunately, she does not qualify for remdesivir at this point, especially with her transaminases the way they are. Oxygen will be weaned to keep sats greater than or equal to about 92%. Aspiration precautions will be maintained. An arterial blood gas is going to be ordered on the noninvasive ventilation and ____ will be made after review of that. She is appropriately on vitamin supplementation with zinc supplementation. We will continue systemic steroids. We will continue empiric community-acquired pneumonia therapy with Rocephin and Zithromax. Blood cultures will be followed. No acute indication for full anticoagulation. She is appropriately on GI prophylaxis and DVT prophylaxis. Flu and pneumonia vaccination will be addressed per protocol. Hopefully, she does not decompensate further, but at this point is already essentially requiring continuous noninvasive ventilation. Thank you very much for the consult, we will follow along and make further recommendations as picture progresses/becomes clearer. She is critically ill on life-sustaining interventions including continuous noninvasive ventilation at very high risk of from cardiopulmonary system decompensation at this time. I spent about 35-40 minutes of critical care time without overlap and excluding any procedural time that may be necessary. TID: [id number] RECEIPT: [id number] LESLIE/AYAZ/DAVID
[2020-12-10] MEDS: oxyCODONE /ACETAMINOPHEN 5-325MG TAB PO PRN (17:52)
[2020-12-10] MEDS: POTASSIUM CHLORIDE ER 20 MEQ TAB PO SCH (20:30)
[2020-12-10] MEDS ORDERED: REMDESIVIR 100 MG in SODIUM CHLORIDE 0.9% 250ML 250 ML IV SCH (21:00)
[2020-12-10] MEDS: cefTRIAXone/NS 2 GM/100 ML 2 GM/100 ML BAG IV SCH (22:44)
[2020-12-10] MEDS: AZITHROMYCIN/NS 500 MG/250 ML 500 MG/250 ML BAG IV SCH (22:45)
[2020-12-11] MEDS: SODIUM CHLORIDE 0.9% 50 ML IVPB IV SCH ×4 (01:46→23:26)
[2020-12-11] MEDS: HEPARIN 5,000 UNIT/1 ML VIAL SUB-Q SCH ×2 (05:41→15:00)
[2020-12-11 06:17] LABS: Alanine Aminotransferase 589 units/L (7-56); Blood Urea Nitrogen 17 mg/dL (7-17); Calcium 8.3 mg/dL (8.4-10.2); Hemolysis Index 2
[2020-12-11 06:40] LABS: BUN/Creatinine Ratio 43
--- NOTE | 2020-12-11 11:29 | Progress Note ---
Assessment and Plan Cultures: Blood culture no growth so far Covid positive A/P: 50-year-old female past medical history hypertension admitted with COVID-19 #Sepsis: With elevated lactate: Likely due to hypoxia from COVID-19. #Severe COVID-19 pneumonia: Patient presented with a week of symptoms, chest x- ray with diffuse bilateral infiltrates. No evidence of pulmonary embolism on CT. very elevated markers. #Acute hypoxemic respiratory failure: Likely secondary to COVID-19 infection. Currently on salter. #Elevated liver enzymes:-Secondary to COVID-19 Recs: -Dexamethasone 6 mg IV/PO daily for 10 days -Okay to restart remdesivir - elevated liver enzymes improving <10X normal -With very high procalcitonin likely bacterial coinfection, as such not an Actemra candidate -Obtain q48-72h inflammatory markers - ferritin, Ddimer, CRP, LDH, repeat markers today, and procal -Continue ceftriaxone 2 gm IV qday and azithromycin 500 mg PO qday to complete 5 days -Anticoagulation per hospital protocol -Proning as able -Consider abdominal CT if abdominal pain MD [facility] ([facility]) Office [phone] Subjective Date of service: 12/11/20 Objective - Constitutional Vitals: Vital Signs Temp Pulse Resp BP Pulse Ox 98.6 F 78 23 149/95 100 12/09/20 20:20 12/11/20 06:15 12/10/20 23:33 12/11/20 06:15 12/11/20 06:15 - Labs CBC & Chem 7: 12/09/20 04:33 12/11/20 05:34 Labs: Abnormal lab results 12/10/20 12/10/20 12/10/20 Range/Units 11:15 13:36 19:13 Potassium 3.4 L (3.6-5.0) mmol/L Chloride (98-107) mmol/L Creatinine (0.6-1.2) mg/dL Glucose (65-100) mg/dL Lactic Acid 2.40 H* 3.40 H* (0.7-2.0) mmol/L Calcium (8.4-10.2) mg/dL AST (5-40) units/L ALT (7-56) units/L Alkaline Phosphatase (35-129) units/L Total Protein (6.3-8.2) g/dL Albumin (3.9-5) g/dL 12/11/20 12/11/20 12/11/20 Range/Units 00:49 05:34 05:34 Potassium (3.6-5.0) mmol/L Chloride 108.1 H (98-107) mmol/L Creatinine 0.4 L (0.6-1.2) mg/dL Glucose 160 H (65-100) mg/dL Lactic Acid 2.30 H* 2.30 H* (0.7-2.0) mmol/L Calcium 8.3 L (8.4-10.2) mg/dL AST 249 H (5-40) units/L ALT 589 H (7-56) units/L Alkaline Phosphatase 701 H (35-129) units/L Total Protein 5.9 L (6.3-8.2) g/dL Albumin 3.0 L (3.9-5) g/dL 12/11/20 Range/Units 10:06 Potassium (3.6-5.0) mmol/L Chloride (98-107) mmol/L Creatinine (0.6-1.2) mg/dL Glucose (65-100) mg/dL Lactic Acid 2.90 H* (0.7-2.0) mmol/L Calcium (8.4-10.2) mg/dL AST (5-40) units/L ALT (7-56) units/L Alkaline Phosphatase (35-129) units/L Total Protein (6.3-8.2) g/dL Albumin (3.9-5) g/dL
[2020-12-11] MEDS: ASCORBIC ACID 500 MG TAB PO SCH ×2 (12:08→22:00)
[2020-12-11] MEDS: CHOLECALCIFEROL (VIT D3) 1000 UNIT (25 mcg) TAB PO SCH (12:09)
[2020-12-11] MEDS: ZINC SULFATE 220 MG CAP PO SCH (12:09)
[2020-12-11] MEDS: FAMOTIDINE 20 MG TAB PO SCH ×2 (12:10→22:00)
[2020-12-11] MEDS: dexAMETHasone 4 MG/ML VIAL IV SCH (12:10)
[2020-12-11] MEDS: POTASSIUM CHLORIDE ER 20 MEQ TAB PO SCH (12:10)
[2020-12-11] MEDS: LORazepam 2 MG/ML VIAL IV PRN (12:11)
[2020-12-11 13:26] LABS: C-Reactive Protein 2.9 mg/dL (0.00-1.30)
--- NOTE | 2020-12-11 13:59 | Progress Note ---
Assessment and Plan Acute hypoxemic respiratory failure COVID-19 infection Bilateral pneumonia Elevated serum transaminases Sepsis Anemia that is microcytic Thrombocytosis Lactic acidosis - slow improvement, continue care as below; - dopplers negative for VTE - continue NIV qhs with prn daytime use - trend LFT's - continue aspiration precautions - continue to wean supplemental oxygen for target O2 sat's > 92% acutely - bronchodilators with pulmonary hygiene per RT - avoid nephrotoxins, renally dose all medications - avoid benzodiazepine's, reduce the possibility of delirium - complete antiinfective's per ID rec's - prn analgesia per pain score - Maintenance of sleep-wake cycle, avoid delirium - G.I. & VTE prophylaxis - PT/OT/ROM exercises - continue mobility protocols for pressure ulcer prophylaxis - Monitor hemodynamics closely - continue other care per attending / other consultants - discharge planning ongoing concurrently COVID SPECIFIC INTERVENTIONS - Remdesivir as per ID/Pulmonary developed protocols (not a candidate re: LFT's) - continue systemic steroids for severe COVID-19 infection - follow repeat COVID tests results - zinc and vitamin C supplementation - Monitor inflammatory markers per facility protocol - ferritin, Ddimer, CRP - therapeutic anticoagulation per system Protocol based on d-dimer and clinical considerations (VTE prophylaxis) - Continue contact and airborne isolation .... Re-evaluate in am & prn CONDITION: CRITICAL PROGNOSIS: GUARDED CODE STATUS: FULL CODE The high probability of a clinically significant, sudden or life-threatening deterioration of the [respiratory, cardiovascular & neurologic] system(s) required my full and direct attention, intervention and personal management. The aggregate critical care time was [32] minutes without overlap. Time includes spent on; [x] Data Review and interpretation [x] Patient assessment and monitoring of vital signs [x] Documentation [x] Medication orders and management Subjective Date of service: 12/11/20 Principal diagnosis: Ac hypoxemic resp failure; COVID-19 infxn; Pneumonia; Sepsis Interval history: Patient is seen today for: Acute hypoxemic respiratory failure; COVID-19 infect ion; Bilateral pneumonia; Elevated serum transaminases; Sepsis; Lactic acidosis Seen and examined at bedside; 24hour events reviewed; nursing and respiratory care staff consulted; no adverse overnight events reported to me; resting peacefully in bed; feels a little better; denies acute chest pains or increased SOB Objective Vital Signs - 12hr 12/11/20 12/11/20 12/11/20 02:01 02:15 02:31 Pulse Rate 83 83 85 Blood Pressure 149/93 149/93 146/89 O2 Sat by Pulse 100 100 98 Oximetry 12/11/20 12/11/20 12/11/20 02:37 02:45 03:01 Pulse Rate 92 H 91 H Blood Pressure 149/93 162/102 O2 Sat by Pulse 98 98 96 Oximetry 12/11/20 12/11/20 12/11/20 03:15 03:31 03:45 Pulse Rate 88 97 H 96 H Blood Pressure 146/89 146/90 146/90 O2 Sat by Pulse 100 93 88 Oximetry 12/11/20 12/11/20 12/11/20 04:01 04:15 04:31 Pulse Rate 93 H 90 94 H Blood Pressure 147/89 147/89 153/90 O2 Sat by Pulse 97 100 95 Oximetry 12/11/20 12/11/20 12/11/20 04:45 05:01 05:31 Pulse Rate 85 84 77 Blood Pressure 153/90 158/96 146/91 O2 Sat by Pulse 100 100 100 Oximetry 12/11/20 12/11/20 12/11/20 05:45 06:01 06:15 Pulse Rate 82 77 78 Blood Pressure 146/91 149/95 149/95 O2 Sat by Pulse 100 100 100 Oximetry Constitutional: appears uncomfortable, other (middle aged female with mildly increased respiratory effort at rest) Eyes: non-icteric ENT: oropharynx moist Neck: supple, no lymphadenopathy, no JVD Effort: mildly labored Ascultation: Bilateral: rhonchi Percussion: Bilateral: not dull Cardiovascular: regular rate and rhythm Gastrointestinal: normoactive bowel sounds, soft, non-tender, non-distended Integumentary: normal Extremities: no cyanosis, no edema, pulses normal, no ischemia or petechiae Neurologic: normal mental status, non-focal exam, pupils equal and round, CN II- XII normal, motor strength normal and Psychiatric: mood appropriate, affect normal CBC and BMP: 12/13/20 07:25 12/13/20 07:25 ABG, PT/INR, D-dimer: ABG ABG pH 7.449 (7.320-7.450) 12/10/20 08:45 POC ABG pCO2 36.5 mmHg (32.0-48.0) 12/10/20 08:45 POC ABG pO2 64.5 mmHg (83-108) L 12/10/20 08:45 POC ABG HCO3 24.7 12/10/20 08:45 ABG O2 Saturation 91.0 (0-100) 12/10/20 08:45 PT/INR, D-dimer PT 16.4 Sec. (12.2-14.9) H 12/08/20 00:15 INR 1.27 (0.87-1.13) H 12/08/20 00:15 D-Dimer 725.41 ng/mlDDU (0-234) H 12/11/20 12:38 Abnormal lab findings: Abnormal Labs 12/08/20 12/08/20 12/08/20 00:15 00:15 00:15 WBC 17.0 H RBC 5.40 H Hgb 8.3 L Hct 29.7 L MCV 55 L MCH 16 L MCHC 28 L RDW 25.0 H Plt Count 464 H [place] # (Auto) Seg Neutrophils % Seg Neuts % (Manual) 92.0 H Lymphocytes % (Manual) 1.0 L Nucleated RBC % Seg Neutrophils # Seg Neutrophils # Man 15.6 H Lymphocytes # (Manual) 0.2 L PT 16.4 H INR 1.27 H D-Dimer 1129.87 H POC ABG pO2 ABG Hemoglobin ABG Oxyhemoglobin ABG Potassium ABG Chloride ABG Glucose Potassium 3.1 L Chloride BUN Creatinine Glucose 128 H Lactic Acid Calcium 8.3 L Ferritin Total Bilirubin 1.90 H AST 309 H ALT 1384 H Alkaline Phosphatase 440 H Lactate Dehydrogenase C-Reactive Protein Total Protein Albumin 3.2 L Arterial Blood Glucose Coronavirus (PCR) 12/08/20 12/08/20 12/08/20 00:15 00:15 00:15 WBC RBC Hgb Hct MCV MCH MCHC RDW Plt Count [place] # (Auto) Seg Neutrophils % Seg Neuts % (Manual) Lymphocytes % (Manual) Nucleated RBC % Seg Neutrophils # Seg Neutrophils # Man Lymphocytes # (Manual) PT INR D-Dimer POC ABG pO2 ABG Hemoglobin ABG Oxyhemoglobin ABG Potassium ABG Chloride ABG Glucose Potassium Chloride BUN Creatinine Glucose Lactic Acid 2.30 H* Calcium Ferritin 289.8 H Total Bilirubin AST ALT Alkaline Phosphatase Lactate Dehydrogenase 608 H C-Reactive Protein 20.70 H Total Protein Albumin Arterial Blood Glucose Coronavirus (PCR) 12/08/20 12/08/20 12/08/20 02:16 09:49 10:30 WBC RBC Hgb Hct MCV MCH MCHC RDW Plt Count [place] # (Auto) Seg Neutrophils % Seg Neuts % (Manual) Lymphocytes % (Manual) Nucleated RBC % Seg Neutrophils # Seg Neutrophils # Man Lymphocytes # (Manual) PT INR D-Dimer POC ABG pO2 ABG Hemoglobin ABG Oxyhemoglobin ABG Potassium ABG Chloride ABG Glucose Potassium Chloride BUN Creatinine Glucose Lactic Acid 2.50 H* 2.40 H* Calcium Ferritin Total Bilirubin AST ALT Alkaline Phosphatase Lactate Dehydrogenase C-Reactive Protein Total Protein Albumin Arterial Blood Glucose Coronavirus (PCR) Positive A 12/09/20 12/09/20 12/09/20 04:33 04:33 09:13 WBC 21.0 H RBC 5.12 H Hgb 8.2 L Hct 29.1 L MCV 57 L MCH 16 L MCHC 28 L RDW 24.6 H Plt Count 509 H [place] # (Auto) 1.3 H Seg Neutrophils % 84.3 H Seg Neuts % (Manual) 93.0 H Lymphocytes % (Manual) 2.0 L Nucleated RBC % 2.0 H Seg Neutrophils # 17.8 H Seg Neutrophils # Man 19.5 H Lymphocytes # (Manual) 0.4 L PT INR D-Dimer POC ABG pO2 ABG Hemoglobin ABG Oxyhemoglobin ABG Potassium ABG Chloride ABG Glucose Potassium 3.5 L Chloride BUN 30 H 29 H Creatinine Glucose 190 H 129 H Lactic Acid Calcium Ferritin Total Bilirubin AST 276 H ALT 867 H Alkaline Phosphatase 685 H Lactate Dehydrogenase C-Reactive Protein Total Protein Albumin 3.1 L Arterial Blood Glucose Coronavirus (PCR) 12/09/20 12/10/20 12/10/20 19:16 05:04 05:04 WBC RBC Hgb Hct MCV MCH MCHC RDW Plt Count [place] # (Auto) Seg Neutrophils % Seg Neuts % (Manual) Lymphocytes % (Manual) Nucleated RBC % Seg Neutrophils # Seg Neutrophils # Man Lymphocytes # (Manual) PT INR D-Dimer POC ABG pO2 ABG Hemoglobin ABG Oxyhemoglobin ABG Potassium ABG Chloride ABG Glucose Potassium 3.4 L Chloride BUN 25 H Creatinine Glucose 184 H Lactic Acid 2.80 H* 3.30 H* Calcium 7.9 L Ferritin Total Bilirubin AST 277 H ALT 722 H Alkaline Phosphatase 773 H Lactate Dehydrogenase C-Reactive Protein Total Protein Albumin 2.9 L Arterial Blood Glucose Coronavirus (PCR) 12/10/20 12/10/20 12/10/20 08:11 08:45 11:15 WBC RBC Hgb Hct MCV MCH MCHC RDW Plt Count [place] # (Auto) Seg Neutrophils % Seg Neuts % (Manual) Lymphocytes % (Manual) Nucleated RBC % Seg Neutrophils # Seg Neutrophils # Man Lymphocytes # (Manual) PT INR D-Dimer POC ABG pO2 64.5 L ABG Hemoglobin 7.6 L ABG Oxyhemoglobin 90.2 L ABG Potassium 3.3 L ABG Chloride 108.0 H ABG Glucose 126 H Potassium Chloride BUN Creatinine Glucose Lactic Acid 2.10 H* 2.40 H* Calcium Ferritin Total Bilirubin AST ALT Alkaline Phosphatase Lactate Dehydrogenase C-Reactive Protein Total Protein Albumin Arterial Blood Glucose 126 H Coronavirus (PCR) 12/10/20 12/10/20 12/11/20 13:36 19:13 00:49 WBC RBC Hgb Hct MCV MCH MCHC RDW Plt Count [place] # (Auto) Seg Neutrophils % Seg Neuts % (Manual) Lymphocytes % (Manual) Nucleated RBC % Seg Neutrophils # Seg Neutrophils # Man Lymphocytes # (Manual) PT INR D-Dimer POC ABG pO2 ABG Hemoglobin ABG Oxyhemoglobin ABG Potassium ABG Chloride ABG Glucose Potassium 3.4 L Chloride BUN Creatinine Glucose Lactic Acid 3.40 H* 2.30 H* Calcium Ferritin Total Bilirubin AST ALT Alkaline Phosphatase Lactate Dehydrogenase C-Reactive Protein Total Protein Albumin Arterial Blood Glucose Coronavirus (PCR) 12/11/20 12/11/20 12/11/20 05:34 05:34 10:06 WBC RBC Hgb Hct MCV MCH MCHC RDW Plt Count [place] # (Auto) Seg Neutrophils % Seg Neuts % (Manual) Lymphocytes % (Manual) Nucleated RBC % Seg Neutrophils # Seg Neutrophils # Man Lymphocytes # (Manual) PT INR D-Dimer POC ABG pO2 ABG Hemoglobin ABG Oxyhemoglobin ABG Potassium ABG Chloride ABG Glucose Potassium Chloride 108.1 H BUN Creatinine 0.4 L Glucose 160 H Lactic Acid 2.30 H* 2.90 H* Calcium 8.3 L Ferritin Total Bilirubin AST 249 H ALT 589 H Alkaline Phosphatase 701 H Lactate Dehydrogenase C-Reactive Protein Total Protein 5.9 L Albumin 3.0 L Arterial Blood Glucose Coronavirus (PCR) 12/11/20 12/11/20 12/11/20 12:38 12:38 12:38 WBC RBC Hgb Hct MCV MCH MCHC RDW Plt Count [place] # (Auto) Seg Neutrophils % Seg Neuts % (Manual) Lymphocytes % (Manual) Nucleated RBC % Seg Neutrophils # Seg Neutrophils # Man Lymphocytes # (Manual) PT INR D-Dimer 725.41 H POC ABG pO2 ABG Hemoglobin ABG Oxyhemoglobin ABG Potassium ABG Chloride ABG Glucose Potassium Chloride BUN Creatinine Glucose Lactic Acid 2.50 H* Calcium Ferritin Total Bilirubin AST ALT Alkaline Phosphatase Lactate Dehydrogenase 447 H C-Reactive Protein 2.90 H Total Protein Albumin Arterial Blood Glucose Coronavirus (PCR) Allied health notes reviewed: nursing
--- NOTE | 2020-12-11 14:07 | Progress Note ---
Subjective Date of service: 12/11/20 Principal diagnosis: Ac hypoxemic resp failure; COVID-19 infxn; Pneumonia; Sepsis Interval history: Assessment and plan: (1) Acute respiratory failure 2/2 Covid 19 PNA pulmonary following and note reviewed Patient is on 35% Fio2 with O2 sat 93-94% (2) COVID-19 Current Visit: Yes Status: Acute Plan to address problem: ID note reviewed inflammatory markers reviewed cont. Dexamethasone x 10 days Cleared for starting remdesivir as LFTs < 10 times normal monitor markers 3. Severe sepsis procalcitonin results reviewed ID note reviewed cont. ceftriaxone and azithromycin Leucocytosis: 2/2 sepsis monitor CBC (4) Hypertension Current Visit: Yes Status: Acute Plan to address problem: Hydralazine 10 mg IV every 6 hours as needed she has no hx of HTN 5) Transaminitis: results reviewed cont. to monitor (5) DVT prophylaxis Current Visit: Yes Status: Acute Plan to address problem: will stop heparin and start on lovenox. Pepcid 20 mg p.o. twice daily for GI prophylaxis. Patient is a full code. 12/09/2020 -Patient was on BiPAP with FiO2 of 100%, patient desaturated when she was off BiPAP momentarily. I put her on D5 half-normal saline for maintenance. Titrate oxygen as tolerated. -Pulmonary consulted, ID consulted. -Patient has elevated ALT and AST and is not a candidate for remdesivir. -Patient is on IV antibiotics and procalcitonin level is elevated, ID recommends to continue with IV antibiotics. ID said patient is not a candidate for Actemra because of the infection with elevated procalcitonin level. 12/10; patient is on BiPAP, on Decadron. Remdesivir discontinued due to elevated liver enzymes. Patient not a candidate for Actemra because patient has elevated procalcitonin level. Continue with IV antibiotics. Prognosis is guarded. 12/11patient is A&O,A&O, c/o weakness and feels tired. C/O shortness of breath. requesting stool sofner. She denies f/c/CP/N/abd. pain Objective - Constitutional Vitals: Vital Signs - 12hr 12/11/20 12/11/20 12/11/20 02:15 02:31 02:37 Pulse Rate 83 85 Blood Pressure 149/93 146/89 O2 Sat by Pulse 100 98 98 Oximetry 12/11/20 12/11/20 12/11/20 02:45 03:01 03:15 Pulse Rate 92 H 91 H 88 Blood Pressure 149/93 162/102 146/89 O2 Sat by Pulse 98 96 100 Oximetry 12/11/20 12/11/20 12/11/20 03:31 03:45 04:01 Pulse Rate 97 H 96 H 93 H Blood Pressure 146/90 146/90 147/89 O2 Sat by Pulse 93 88 97 Oximetry 12/11/20 12/11/20 12/11/20 04:15 04:31 04:45 Pulse Rate 90 94 H 85 Blood Pressure 147/89 153/90 153/90 O2 Sat by Pulse 100 95 100 Oximetry 12/11/20 12/11/20 12/11/20 05:01 05:31 05:45 Pulse Rate 84 77 82 Blood Pressure 158/96 146/91 146/91 O2 Sat by Pulse 100 100 100 Oximetry 12/11/20 12/11/20 06:01 06:15 Pulse Rate 77 78 Blood Pressure 149/95 149/95 O2 Sat by Pulse 100 100 Oximetry General appearance: Present: no acute distress - EENT Eyes: PERRL, EOM intact ENT: hearing intact - Neck Neck: supple - Respiratory Respiratory effort: normal Respiratory: bilateral: CTA, diminished - Breasts Breasts: deferred - Cardiovascular Rhythm: regular Heart Sounds: Present: S1 & S2 Extremities: No edema - Gastrointestinal General gastrointestinal: Present: soft, non-tender Rectal Exam: deferred - Genitourinary Female genitourinary: deferred - Integumentary Integumentary: clear - Musculoskeletal Musculoskeletal: strength equal bilaterally, generalized weakness - Neurologic Neurologic: no focal deficits - Psychiatric Psychiatric: appropriate mood/affect - Labs CBC & Chem 7: 12/09/20 04:33 12/11/20 05:34 Labs: Abnormal lab results 12/10/20 12/10/20 12/11/20 Range/Units 13:36 19:13 00:49 D-Dimer (0-234) ng/mlDDU Potassium 3.4 L (3.6-5.0) mmol/L Chloride (98-107) mmol/L Creatinine (0.6-1.2) mg/dL Glucose (65-100) mg/dL Lactic Acid 3.40 H* 2.30 H* (0.7-2.0) mmol/L Calcium (8.4-10.2) mg/dL AST (5-40) units/L ALT (7-56) units/L Alkaline Phosphatase (35-129) units/L Lactate Dehydrogenase (91-180) units/L C-Reactive Protein (0.00-1.30) mg/dL Total Protein (6.3-8.2) g/dL Albumin (3.9-5) g/dL 12/11/20 12/11/20 12/11/20 Range/Units 05:34 05:34 10:06 D-Dimer (0-234) ng/mlDDU Potassium (3.6-5.0) mmol/L Chloride 108.1 H (98-107) mmol/L Creatinine 0.4 L (0.6-1.2) mg/dL Glucose 160 H (65-100) mg/dL Lactic Acid 2.30 H* 2.90 H* (0.7-2.0) mmol/L Calcium 8.3 L (8.4-10.2) mg/dL AST 249 H (5-40) units/L ALT 589 H (7-56) units/L Alkaline Phosphatase 701 H (35-129) units/L Lactate Dehydrogenase (91-180) units/L C-Reactive Protein (0.00-1.30) mg/dL Total Protein 5.9 L (6.3-8.2) g/dL Albumin 3.0 L (3.9-5) g/dL 12/11/20 12/11/20 12/11/20 Range/Units 12:38 12:38 12:38 D-Dimer 725.41 H (0-234) ng/mlDDU Potassium (3.6-5.0) mmol/L Chloride (98-107) mmol/L Creatinine (0.6-1.2) mg/dL Glucose (65-100) mg/dL Lactic Acid 2.50 H* (0.7-2.0) mmol/L Calcium (8.4-10.2) mg/dL AST (5-40) units/L ALT (7-56) units/L Alkaline Phosphatase (35-129) units/L Lactate Dehydrogenase 447 H (91-180) units/L C-Reactive Protein 2.90 H (0.00-1.30) mg/dL Total Protein (6.3-8.2) g/dL Albumin (3.9-5) g/dL
[2020-12-11] MEDS ORDERED: POLYETHYLENE GLYCOL 3350 17 GM POWDER PO PRN (15:53)
[2020-12-11] MEDS ORDERED: REMDESIVIR 200 MG in SODIUM CHLORIDE 0.9% 250ML 250 ML IV ONE (16:00)
[2020-12-11] MEDS ORDERED: LORazepam 2 MG/ML VIAL IV ONE (20:17)
[2020-12-11] MEDS: ENOXAPARIN 30 MG/0.3 ML INJ SUB-Q SCH (22:00)
[2020-12-11] MEDS: cefTRIAXone/NS 2 GM/100 ML 2 GM/100 ML BAG IV SCH (23:27)
[2020-12-11] MEDS: AZITHROMYCIN/NS 500 MG/250 ML 500 MG/250 ML BAG IV SCH (23:28)
[2020-12-12 05:28] LABS: Mean Corpuscular HGB Conc 29 % (30-34); Platelet Count 809 K/mm3 (140-440)
[2020-12-12 05:35] LABS: Hematocrit 28.4 % (30.3-42.9); Hemoglobin 8.1 gm/dl (10.1-14.3); Mean Corpuscular Volume 57 fl (79-97)
[2020-12-12 05:45] LABS: Alanine Aminotransferase 469 units/L (7-56); Albumin 3.1 g/dL (3.9-5); Blood Urea Nitrogen 20 mg/dL (7-17); Calcium 8.7 mg/dL (8.4-10.2); Hemolysis Index 19
[2020-12-12 05:51] LABS: BUN/Creatinine Ratio 50
[2020-12-12 06:25] LABS: Total Cells Counted 100
[2020-12-12 06:27] LABS: Anisocytosis 2+; Hypochromasia 3+; Poikilocytosis 1+
[2020-12-12 06:28] LABS: Ovalocytes Few
[2020-12-12 06:30] LABS: Platelet Estimate Consistent w Auto; Tear Drop Cells Few
[2020-12-12] MEDS: ENOXAPARIN 30 MG/0.3 ML INJ SUB-Q SCH ×2 (09:00→23:00)
[2020-12-12] MEDS ORDERED: REMDESIVIR(see order set) IV SCH (10:00)
[2020-12-12] MEDS: ASCORBIC ACID 500 MG TAB PO SCH ×2 (10:45→22:59)
[2020-12-12] MEDS: POTASSIUM CHLORIDE ER 20 MEQ TAB PO SCH (10:45)
[2020-12-12] MEDS: FAMOTIDINE 20 MG TAB PO SCH ×2 (10:45→22:59)
[2020-12-12] MEDS: ZINC SULFATE 220 MG CAP PO SCH (10:46)
[2020-12-12] MEDS: CHOLECALCIFEROL (VIT D3) 1000 UNIT (25 mcg) TAB PO SCH (10:46)
--- NOTE | 2020-12-12 12:13 | Progress Note ---
Assessment and Plan Assessment and plan: 50-year-old female with history of hypertension was brought to the emergency room because of shortness of breath, cough, fever, Covid positive. Patient was diagnosed with COVID-19 1 week ago. Since then patient complained of worsening shortness of breath. Patient states she has not seen a physician for this. Patient states she does not take any medicine. Patient states the fever is fluctuating. Patient states it responds well to Tylenol. Patient states her cough is dry. Patient states she has not been vaccinated for COVID-19. Patient complains of chills. Patient denies nausea vomiting. Patient denies diarrhea. Patient denies abdominal pain. Patient denies chest pain. patient's ox saturation was 82%. Patient was found to have acute respiratory failure. Patient WBC 17.0 and chest x-ray shows pneumonia secondary to Covid. Patient was put on BiPAP (1) Acute hypoxic respiratory failure 2/2 Covid 19 PNA pulmonary following and note reviewed Patient is on 35% Fio2 with O2 sat 93-94% (2) COVID-19 Current Visit: Yes Status: Acute Plan to address problem: ID note reviewed inflammatory markers reviewed cont. Dexamethasone x 10 days Cleared for starting remdesivir as LFTs < 10 times normal monitor markers 3. Severe sepsis procalcitonin results reviewed ID note reviewed cont. ceftriaxone and azithromycin Leucocytosis: 2/2 sepsis monitor CBC (4) Hypertension Current Visit: Yes Status: Acute Plan to address problem: Hydralazine 10 mg IV every 6 hours as needed she has no hx of HTN 5) Transaminitis: results reviewed cont. to monitor (6) anemia (7) DVT prophylaxis Current Visit: Yes Status: Acute Plan to address problem: will stop heparin and start on lovenox. Pepcid 20 mg p.o. twice daily for GI prophylaxis. Patient is a full code. 12/09/2020 -Patient was on BiPAP with FiO2 of 100%, patient desaturated when she was off BiPAP momentarily. I put her on D5 half-normal saline for maintenance. Titrate oxygen as tolerated. -Pulmonary consulted, ID consulted. -Patient has elevated ALT and AST and is not a candidate for remdesivir. -Patient is on IV antibiotics and procalcitonin level is elevated, ID recommends to continue with IV antibiotics. ID said patient is not a candidate for Actemra because of the infection with elevated procalcitonin level. 12/10; patient is on BiPAP, on Decadron. Remdesivir discontinued due to elevated liver enzymes. Patient not a candidate for Actemra because patient has elevated procalcitonin level. Continue with IV antibiotics. Prognosis is guarded. 12/11patient is A&O,A&O, c/o weakness and feels tired. C/O shortness of breath. requesting stool sofner. She denies f/c/CP/N/abd. pain 12/12: Continue supportive care. Wean oxygen as tolerated. Will obtain pulmonary consult will evaluate for possible Lasix therapy. Noted anemia with hemoglobin of 8.1 will monitor this closely. D-dimer is elevated so is AST and ALT and alk phos. This may preclude use of medications such as remdesivir which has been discontinued in relation to this. Patient remains critically ill. History Interval history: Patient seen and examined remains on BiPAP this morning. Still visibly short of breath although saturations improved. Blood pressure was initially elevated but improved also. Hospitalist Physical - Physical exam Narrative exam: VITAL SIGNS: Reviewed. GENERAL: The patient appears normally developed, otherwise short of breath, anxious vital signs as documented. HEAD: No signs of head trauma. EYES: Pupils are equal. Extraocular motions intact. EARS: Hearing grossly intact. MOUTH: Oropharynx is normal. NECK: No adenopathy, no JVD. CHEST: Chest with diminshed breath sounds bilaterally. No wheezes, rales, or rhonchi. CARDIAC: Regular rate and rhythm. S1 and S2, without murmurs, gallops, or rubs. VASCULAR: No Edema. Peripheral pulses normal and equal in all extremities. ABDOMEN: Soft, non tender and non distended. No rebound or guarding, and no masses palpated. Bowel Sounds normal. MUSCULOSKELETAL: Good range of motion of all major joints. Extremities without clubbing, cyanosis or edema. NEUROLOGIC EXAM: Alert and oriented x 3 No focal sensory or strength deficits. Speech normal. Follows commands. PSYCHIATRIC: Mood anxious. SKIN: detail exam as documented in skin assessment - Constitutional Vitals: Temp Pulse Resp BP Pulse Ox 98.6 F 81 29 H 160/102 100 12/09/20 20:20 12/12/20 08:48 12/12/20 08:48 12/12/20 08:48 12/12/20 08:48 General appearance: Present: no acute distress Results - Labs CBC & Chem 7: 12/12/20 05:01 12/12/20 05:01 Labs: Laboratory Last Values WBC 15.3 K/mm3 (4.5-11.0) H 12/12/20 05:01 RBC 5.00 M/mm3 (3.65-5.03) 12/12/20 05:01 Hgb 8.1 gm/dl (10.1-14.3) L 12/12/20 05:01 Hct 28.4 % (30.3-42.9) L 12/12/20 05:01 MCV 57 fl (79-97) L 12/12/20 05:01 MCH 16 pg (28-32) L 12/12/20 05:01 MCHC 29 % (30-34) L 12/12/20 05:01 RDW 25.0 % (13.2-15.2) H 12/12/20 05:01 Plt Count 809 K/mm3 (140-440) H 12/12/20 05:01 [place] % (Auto) 6.0 % (0.0-7.3) 12/09/20 04:33 [place] # (Auto) 1.3 K/mm3 (0.0-0.8) H 12/09/20 04:33 Add Manual Diff Complete 12/12/20 05:01 Total Counted 100 12/12/20 05:01 Seg Neutrophils % 84.3 % (40.0-70.0) H 12/09/20 04:33 Seg Neuts % (Manual) 83.0 % (40.0-70.0) H 12/12/20 05:01 Band Neutrophils % 3.0 % 12/09/20 04:33 Lymphocytes % (Manual) 10.0 % (13.4-35.0) L 12/12/20 05:01 Monocytes % (Manual) 7.0 % (0.0-7.3) 12/12/20 05:01 Metamyelocytes % 1.0 % 12/08/20 00:15 Nucleated RBC % 2.0 % (0.0-0.9) H 12/12/20 05:01 Seg Neutrophils # 17.8 K/mm3 (1.8-7.7) H 12/09/20 04:33 Seg Neutrophils # Man 12.7 K/mm3 (1.8-7.7) H 12/12/20 05:01 Band Neutrophils # 0.0 K/mm3 12/12/20 05:01 Lymphocytes # (Manual) 1.5 K/mm3 (1.2-5.4) 12/12/20 05:01 Abs React Lymphs (Man) 0.0 K/mm3 12/12/20 05:01 Monocytes # (Manual) 1.1 K/mm3 (0.0-0.8) H 12/12/20 05:01 Eosinophils # (Manual) 0.0 K/mm3 (0.0-0.4) 12/12/20 05:01 Basophils # (Manual) 0.0 K/mm3 (0.0-0.1) 12/12/20 05:01 Metamyelocytes # 0.0 K/mm3 12/12/20 05:01 Myelocytes # 0.0 K/mm3 12/12/20 05:01 Promyelocytes # 0.0 K/mm3 12/12/20 05:01 Blast Cells # 0.0 K/mm3 12/12/20 05:01 WBC Morphology Not Reportable 12/12/20 05:01 Hypersegmented Neuts Not Reportable 12/12/20 05:01 Hyposegmented Neuts Not Reportable 12/12/20 05:01 Hypogranular Neuts Not Reportable 12/12/20 05:01 Smudge Cells Not Reportable 12/12/20 05:01 Toxic Granulation Not Reportable 12/12/20 05:01 Toxic Vacuolation Not Reportable 12/12/20 05:01 Dohle Bodies Not Reportable 12/12/20 05:01 Pelger-Huet Anomaly Not Reportable 12/12/20 05:01 Lauryn Rods Not Reportable 12/12/20 05:01 Platelet Estimate Consistent w auto 12/12/20 05:01 Clumped Platelets Not Reportable 12/12/20 05:01 Plt Clumps, EDTA Not Reportable 12/12/20 05:01 Large Platelets Not Reportable 12/12/20 05:01 Giant Platelets Not Reportable 12/12/20 05:01 Platelet Satelliting Not Reportable 12/12/20 05:01 Plt Morphology Comment Not Reportable 12/12/20 05:01 RBC Morphology Not Reportable 12/12/20 05:01 Dimorphic RBCs Not Reportable 12/12/20 05:01 Polychromasia Not Reportable 12/12/20 05:01 Hypochromasia 3+ 12/12/20 05:01 Poikilocytosis 1+ 12/12/20 05:01 Anisocytosis 2+ 12/12/20 05:01 Microcytosis 2+ 12/12/20 05:01 Macrocytosis Not Reportable 12/12/20 05:01 Spherocytes Not Reportable 12/12/20 05:01 Pappenheimer Bodies Not Reportable 12/12/20 05:01 Sickle Cells Not Reportable 12/12/20 05:01 Target Cells Not Reportable 12/12/20 05:01 Tear Drop Cells Few 12/12/20 05:01 Ovalocytes Few 12/12/20 05:01 Helmet Cells Not Reportable 12/12/20 05:01 [place] Bodies Not Reportable 12/12/20 05:01 [place] Rings Not Reportable 12/12/20 05:01 [place] Cells Not Reportable 12/12/20 05:01 Bite Cells Not Reportable 12/12/20 05:01 Crenated Cell Not Reportable 12/12/20 05:01 Elliptocytes Few 12/12/20 05:01 Acanthocytes (Spur) Not Reportable 12/12/20 05:01 Rouleaux Not Reportable 12/12/20 05:01 Hemoglobin C Crystals Not Reportable 12/12/20 05:01 Schistocytes Not Reportable 12/12/20 05:01 Malaria parasites Not Reportable 12/12/20 05:01 Brant Bodies Not Reportable 12/12/20 05:01 Hem Pathologist Commnt No 12/12/20 05:01 PT 16.4 Sec. (12.2-14.9) H 12/08/20 00:15 INR 1.27 (0.87-1.13) H 12/08/20 00:15 APTT 29.6 Sec. (24.2-36.6) 12/08/20 00:15 D-Dimer 752.84 ng/mlDDU (0-234) H 12/12/20 05:01 ABG pH 7.449 (7.320-7.450) 12/10/20 08:45 POC ABG pCO2 36.5 mmHg (32.0-48.0) 12/10/20 08:45 POC ABG pO2 64.5 mmHg (83-108) L 12/10/20 08:45 POC ABG HCO3 24.7 12/10/20 08:45 ABG O2 Saturation 91.0 (0-100) 12/10/20 08:45 POC ABG Base Excess 0.8 12/10/20 08:45 ABG Hemoglobin 7.6 (12.0-17.5) L 12/10/20 08:45 ABG Oxyhemoglobin 90.2 (94-98) L 12/10/20 08:45 ABG Methemoglobin 0.1 (0.0-1.5) 12/10/20 08:45 ABG Sodium 139.9 mmol/L (136.0-145.0) 12/10/20 08:45 ABG Potassium 3.3 mmol/L (3.40-4.50) L 12/10/20 08:45 ABG Chloride 108.0 mmol/L (98-107) H 12/10/20 08:45 ABG Glucose 126 mg/dL (65-95) H 12/10/20 08:45 Carboxyhemoglobin 0.8 (0.5-1.5) 12/10/20 08:45 FiO2 % 35.0 12/10/20 08:45 Sodium 141 mmol/L (137-145) 12/12/20 05:01 Potassium 4.5 mmol/L (3.6-5.0) 12/12/20 05:01 Chloride 104.9 mmol/L (98-107) 12/12/20 05:01 Carbon Dioxide 24 mmol/L (22-30) 12/12/20 05:01 Anion Gap 17 mmol/L 12/12/20 05:01 BUN 20 mg/dL (7-17) H 12/12/20 05:01 Creatinine 0.4 mg/dL (0.6-1.2) L 12/12/20 05:01 Estimated GFR > 60 ml/min 12/12/20 05:01 BUN/Creatinine Ratio 50 % 12/12/20 05:01 Glucose 120 mg/dL (65-100) H 12/12/20 05:01 Lactic Acid 2.50 mmol/L (0.7-2.0) H* 12/11/20 12:38 Calcium 8.7 mg/dL (8.4-10.2) 12/12/20 05:01 Ferritin 165.8 ng/mL (10.0-200.0) 12/11/20 12:38 Total Bilirubin 0.80 mg/dL (0.1-1.2) 12/12/20 05:01 AST 121 units/L (5-40) H 12/12/20 05:01 ALT 469 units/L (7-56) H 12/12/20 05:01 Alkaline Phosphatase 633 units/L (35-129) H 12/12/20 05:01 Lactate Dehydrogenase 511 units/L (91-180) H 12/12/20 05:01 C-Reactive Protein 3.50 mg/dL (0.00-1.30) H 12/12/20 05:01 Total Protein 6.4 g/dL (6.3-8.2) 12/12/20 05:01 Albumin 3.1 g/dL (3.9-5) L 12/12/20 05:01 Albumin/Globulin Ratio 0.9 % 12/12/20 05:01 Procalcitonin 4.72 ng/mL (<0.15) 12/11/20 12:38 Arterial Blood Glucose 126 mg/dL (65-95) H 12/10/20 08:45 Coronavirus (PCR) Positive (Negative) A 12/08/20 10:30 Microbiology: Microbiology 12/08/20 00:15 Peripheral/Venous Blood Culture - Preliminary NO GROWTH AFTER 4 DAYS 12/08/20 00:05 Peripheral/Venous Blood Culture - Preliminary NO GROWTH AFTER 4 DAYS Active Medications - Current Medications Current Medications: Generic Name Dose Route Start Last Admin Trade Name Freq PRN Reason Stop Dose Admin Acetaminophen 650 mg 12/08/20 05:31 Acetaminophen 325 Mg Tab PO Q4H PRN Pain MILD(1-3)/Fever >100.5/[place] Albuterol 2.5 mg 12/08/20 05:31 Albuterol 2.5 Mg/3 Ml Nebu IH Q4HRT PRN Shortness Of Breath Ascorbic Acid 500 mg 12/09/20 10:00 12/12/20 10:45 Ascorbic Acid 500 Mg Tab PO 500 mg BID DARIAN Administration Cholecalciferol 1,000 unit 12/09/20 10:00 12/12/20 10:46 Cholecalciferol (Vit D3) 1000 Unit (25 Mcg) Tab PO 1,000 unit QDAY DARIAN Administration Dexamethasone 6 mg 12/08/20 10:00 12/11/20 12:10 Dexamethasone 4 Mg/Ml Vial IV 12/17/20 10:01 6 mg DAILY DARIAN Administration Enoxaparin Sodium 30 mg 12/11/20 22:00 12/12/20 09:00 Enoxaparin 30 Mg/0.3 Ml Inj SUB-Q 30 mg BID [facility] Administration Protocol Famotidine 20 mg 12/08/20 10:00 12/12/20 10:45 Famotidine 20 Mg Tab PO 20 mg BID [facility] Administration Hydromorphone HCl 0.5 mg 12/08/20 05:31 12/10/20 10:13 Hydromorphone 1 Mg/1 Ml Inj IV 0.5 mg Q3H PRN Administration Pain , Severe (7-10) Ceftriaxone Sodium 2 gm in 100 mls @ 200 mls/hr 12/08/20 22:00 12/11/20 23:27 Rocephin/Ns 2 Gm/100 Ml IV 12/12/20 22:29 200 mls/hr Q24H [facility] Administration Protocol Azithromycin 500 mg in 250 mls @ 250 mls/hr 12/08/20 22:00 12/11/20 23:28 Zithromax/Ns IV 12/12/20 22:59 250 mls/hr Q24H [facility] Administration Protocol REMDESIVIR 100 mg/ Sodium 250 mls @ 500 mls/hr 12/12/20 21:00 Chloride IV 12/15/20 21:29 Q24HR@2100 [facility] Lorazepam 1 mg 12/09/20 13:02 12/11/20 12:11 Lorazepam 2 Mg/Ml Vial IV 1 mg Q4H PRN Administration Anxiety Ondansetron HCl 4 mg 12/08/20 05:31 Ondansetron 4 Mg/2 Ml Inj IV Q8H PRN Nausea And Vomiting Oxycodone/Acetaminophen 1 tab 12/08/20 05:31 12/10/20 17:52 Oxycodone /Acetaminophen 5-325mg Tab PO 1 tab Q6H PRN Administration Pain, Moderate (4-6) Polyethylene Glycol 17 gm 08/15/21 15:53 Polyethylene Glycol 3350 17 Gm Powder PO QDAY PRN Constipation Potassium Chloride 40 meq 12/10/20 19:00 12/12/20 10:45 Potassium Chloride Er 20 Meq Tab PO 40 meq QDAY DARIAN Administration Sodium Chloride 10 ml 12/08/20 10:00 12/12/20 10:45 Sodium Chloride 0.9% 10 Ml Flush Syringe IV 10 ml BID DARIAN Administration Sodium Chloride 10 ml 12/08/20 05:31 Sodium Chloride 0.9% 10 Ml Flush Syringe IV PRN PRN LINE FLUSH Sodium Chloride 50 ml 12/10/20 21:00 12/11/20 01:46 Sodium Chloride 0.9% 50 Ml Ivpb IV 12/13/20 21:01 Not Given Q24HR@2100 DARIAN Sodium Chloride 50 ml 12/11/20 16:00 12/11/20 23:26 Sodium Chloride 0.9% 50 Ml Ivpb IV 12/14/20 21:01 50 ml Q24HR@2100 DARIAN Administration Zinc Sulfate 220 mg 12/09/20 10:00 12/12/20 10:46 Zinc Sulfate 220 Mg Cap PO 220 mg QDAY DARIAN Administration
[2020-12-12] MEDS: dexAMETHasone 4 MG/ML VIAL IV SCH (12:48)
--- NOTE | 2020-12-12 13:23 | Progress Note ---
Assessment and Plan Cultures: Blood culture no growth so far COVID-19 PCR: Positive A/P: 50-year-old female past medical history hypertension admitted with COVID-19 #Sepsis: With elevated lactate: Likely due to hypoxia from COVID-19. #Severe COVID-19 pneumonia: Patient presented with a week of symptoms, chest x-r ay with diffuse bilateral infiltrates. No evidence of pulmonary embolism on CT. Very elevated markers. #Acute hypoxemic respiratory failure: #Elevated liver enzymes: ?Secondary to COVID-19 Recs: -Dexamethasone daily for 10 days -Okay to continue remdesivir - elevated liver enzymes downtrending <10X normal -With very high procalcitonin likely bacterial coinfection, as such not an Actemra candidate -Obtain q48-72h inflammatory markers - ferritin, Ddimer, CRP, LDH, repeat markers today, and procal -Continue ceftriaxone 2 gm IV qday and azithromycin 500 mg PO qday to complete 5 days -Anticoagulation per hospital protocol -Proning as able -guarded prognosis -Hepatitis panel and RUQ US ordered Harriett Enamorado MD, FACP [facility] O: [phone] F: [phone] Subjective Date of service: 12/12/20 Principal diagnosis: Ac hypoxemic resp failure; COVID-19 infxn; Pneumonia; Sepsis Interval history: Afebrile. On and off BiPAP. Objective - Exam Narrative Exam: Physical Exam (reviewed in chart to minimize risk of transmission) Constitutional: deferred Head, Ears, Nose: deferred Eyes: deferred Neck: deferred Oral: deferred Cardiovascular: deferred Respiratory: deferred GI: deferred Musculoskeletal: deferred Skin: deferred Hem/Lymphatic: deferred Psych: deferred Neurological: deferred - Constitutional Vitals: Vital Signs Temp Pulse Resp BP Pulse Ox 98.6 F 82 40 H 150/93 97 12/09/20 20:20 12/12/20 12:15 12/12/20 12:15 12/12/20 12:15 12/12/20 12:15 - Labs CBC & Chem 7: 12/12/20 05:01 12/12/20 05:01 Labs: Abnormal lab results 12/11/20 12/11/20 12/12/20 Range/Units 12:38 12:38 05:01 WBC (4.5-11.0) K/mm3 Hgb (10.1-14.3) gm/dl Hct (30.3-42.9) % MCV (79-97) fl MCH (28-32) pg MCHC (30-34) % RDW (13.2-15.2) % Plt Count (140-440) K/mm3 Seg Neuts % (Manual) (40.0-70.0) % Lymphocytes % (Manual) (13.4-35.0) % Nucleated RBC % (0.0-0.9) % Seg Neutrophils # Man (1.8-7.7) K/mm3 Monocytes # (Manual) (0.0-0.8) K/mm3 D-Dimer 725.41 H (0-234) ng/mlDDU BUN 20 H (7-17) mg/dL Creatinine 0.4 L (0.6-1.2) mg/dL Glucose 120 H (65-100) mg/dL AST 121 H (5-40) units/L ALT 469 H (7-56) units/L Alkaline Phosphatase 633 H (35-129) units/L Lactate Dehydrogenase 447 H 511 H (91-180) units/L C-Reactive Protein 2.90 H 3.50 H (0.00-1.30) mg/dL Albumin 3.1 L (3.9-5) g/dL 12/12/20 12/12/20 Range/Units 05:01 05:01 WBC 15.3 H (4.5-11.0) K/mm3 Hgb 8.1 L (10.1-14.3) gm/dl Hct 28.4 L (30.3-42.9) % MCV 57 L (79-97) fl MCH 16 L (28-32) pg MCHC 29 L (30-34) % RDW 25.0 H (13.2-15.2) % Plt Count 809 H (140-440) K/mm3 Seg Neuts % (Manual) 83.0 H (40.0-70.0) % Lymphocytes % (Manual) 10.0 L (13.4-35.0) % Nucleated RBC % 2.0 H (0.0-0.9) % Seg Neutrophils # Man 12.7 H (1.8-7.7) K/mm3 Monocytes # (Manual) 1.1 H (0.0-0.8) K/mm3 D-Dimer 752.84 H (0-234) ng/mlDDU BUN (7-17) mg/dL Creatinine (0.6-1.2) mg/dL Glucose (65-100) mg/dL AST (5-40) units/L ALT (7-56) units/L Alkaline Phosphatase (35-129) units/L Lactate Dehydrogenase (91-180) units/L C-Reactive Protein (0.00-1.30) mg/dL Albumin (3.9-5) g/dL
[2020-12-12] MEDS: SODIUM CHLORIDE 0.9% 50 ML IVPB IV SCH ×3 (13:46→22:58)
--- NOTE | 2020-12-12 13:48 | Progress Note ---
Assessment and Plan 50-year-old female with history of hypertension was brought to the emergency room because of shortness of breath, cough, fever, Covid positive. Patient was diagnosed with COVID-19 1 week ago. Since then patient complained of worsening shortness of breath. Patient states she has not seen a physician for this. Patient states she does not take any medicine. Patient states the fever is fluctuating. Patient states it responds well to Tylenol. Patient states her cough is dry. Patient states she has not been vaccinated for COVID-19. Patient complains of chills. Patient denies nausea vomiting. Patient denies diarrhea. Patient denies abdominal pain. Patient denies chest pain. patient's ox saturation was 82%. Patient was found to have acute respiratory failure. Patient WBC 17.0 and chest x-ray shows pneumonia secondary to Covid. Patient was put on BiPAP Patient sleepy and having some increased work of breathing. Patient is on BIPAP 12/6, rate 20, FIO2 60%. and O2 saturation running 97%. Patient afebrile and has leukocytosis. Chest xray done 12/07/20 reported here is patchy diffuse ground glass predominant airspace disease and also mild bibasilar consolidation/atelectasis. No pleural effusion. CT of chest done 12/08/20 reported Negative for PTE. Pulmonary findings as above suggesting an atypical etiology versus interstitial edema. Venous doppler studies of legs 12/08/20 No sonographic evidence for DVT in either lower extremity. Patient presently on Dexamethasone, REMDESIVIR, S/C Lovenox, Famotidine. Albuterol inhaler. Patient was seen in the emergency department. Patients condition critical. I spent critical care time of 45 minutes by reviewing the chart, examine the patient, review chest xray, CTA of chest, venous doppler studies, talking to the nursing staff, respiratory therapy, and work out plan of treatment in this critically ill COVID patient. - Patient Problems (1) Acute respiratory failure Current Visit: Yes Status: Acute Plan to address problem: BIPAP 12/6, rate 20, FIO2 60% Continue dexamethasone Continue S/C Lovenox. Continue Famotidine. Albuterol inhaler (2) COVID-19 Current Visit: Yes Status: Acute Plan to address problem: Patient is on Dexamethasone and REMDESIVIR (3) Hypertension Current Visit: Yes Status: Acute Plan to address problem: Management as per primary care. (4) Pneumonia Current Visit: Yes Status: Acute Qualifiers: Pneumonia type: due to unspecified organism Laterality: bilateral Lung location: unspecified part of lung Qualified Code(s): J18.9 - Pneumonia, unspecified organism Plan to address problem: Patient is on short course of ceftriaxone and zithromax. Antibiotics as per infectious diseases. Subjective Date of service: 12/12/20 Principal diagnosis: Ac hypoxemic resp failure; COVID-19 infxn; Pneumonia; Sepsis Interval history: 50-year-old female with history of hypertension was brought to the emergency room because of shortness of breath, cough, fever, Covid positive. Patient was diagnosed with COVID-19 1 week ago. Since then patient complained of worsening shortness of breath. Patient states she has not seen a physician for this. Patient states she does not take any medicine. Patient states the fever is fluctuating. Patient states it responds well to Tylenol. Patient states her cough is dry. Patient states she has not been vaccinated for COVID-19. Patient complains of chills. Patient denies nausea vomiting. Patient denies diarrhea. Patient denies abdominal pain. Patient denies chest pain. patient's ox saturation was 82%. Patient was found to have acute respiratory failure. Patient WBC 17.0 and chest x-ray shows pneumonia secondary to Covid. Patient was put on BiPAP Patient sleepy and having some increased work of breathing. Patient is on BIPAP 04/03, rate 20, FIO2 60%. and O2 saturation running 97%. Patient afebrile and has leukocytosis. Chest xray done 12/07/20 reported here is patchy diffuse ground glass predominant airspace disease and also mild bibasilar consolidation/atelectasis. No pleural effusion. CT of chest done 12/08/20 reported Negative for PTE. Pulmonary findings as above suggesting an atypical etiology versus interstitial edema. Venous doppler studies of legs 12/08/20 No sonographic evidence for DVT in either lower extremity. Patient presently on Dexamethasone, REMDESIVIR, S/C Lovenox, Famotidine.Albuterol inhaler. Objective Vital Signs - 12hr 12/12/20 12/12/20 12/12/20 01:47 02:01 02:15 Pulse Rate 107 H 89 85 Respiratory 29 H 45 H 41 H Rate Blood Pressure 171/110 166/108 166/108 O2 Sat by Pulse 60 L 100 100 Oximetry 12/12/20 12/12/20 12/12/20 02:31 02:45 03:01 Pulse Rate 81 84 82 Respiratory 43 H 39 H 35 H Rate Blood Pressure 166/108 166/108 147/104 O2 Sat by Pulse 100 100 100 Oximetry 12/12/20 12/12/20 12/12/20 03:15 03:31 03:45 Pulse Rate 81 74 74 Respiratory 34 H 31 H 32 H Rate Blood Pressure 147/104 147/104 147/104 O2 Sat by Pulse 100 100 100 Oximetry 12/12/20 12/12/20 12/12/20 04:01 04:15 04:31 Pulse Rate 74 78 82 Respiratory 32 H 40 H 32 H Rate Blood Pressure 147/104 147/104 147/104 O2 Sat by Pulse 100 99 98 Oximetry 12/12/20 12/12/20 12/12/20 04:35 04:45 05:01 Pulse Rate 70 79 77 Respiratory 31 H 36 H 30 H Rate Blood Pressure 145/100 147/104 146/102 O2 Sat by Pulse 100 97 98 Oximetry 12/12/20 12/12/20 12/12/20 05:15 05:31 05:45 Pulse Rate 77 77 76 Respiratory 34 H 34 H 31 H Rate Blood Pressure 146/102 146/102 146/102 O2 Sat by Pulse 98 98 99 Oximetry 12/12/20 12/12/20 12/12/20 06:01 06:15 06:31 Pulse Rate 77 72 76 Respiratory 34 H 33 H 35 H Rate Blood Pressure 151/112 151/112 151/112 O2 Sat by Pulse 99 100 99 Oximetry 12/12/20 12/12/20 12/12/20 06:45 07:01 07:15 Pulse Rate 75 75 71 Respiratory 34 H 35 H 38 H Rate Blood Pressure 151/112 150/104 151/112 O2 Sat by Pulse 99 100 100 Oximetry 12/12/20 12/12/20 12/12/20 07:31 07:45 08:01 Pulse Rate 75 84 80 Respiratory 39 H 36 H 31 H Rate Blood Pressure 151/112 151/112 160/102 O2 Sat by Pulse 100 100 100 Oximetry 12/12/20 12/12/20 12/12/20 08:15 08:31 08:45 Pulse Rate 75 80 74 Respiratory 38 H 32 H 31 H Rate Blood Pressure 150/104 150/104 150/104 O2 Sat by Pulse 100 100 100 Oximetry 12/12/20 12/12/20 12/12/20 08:48 09:01 09:15 Pulse Rate 81 77 74 Respiratory 29 H 33 H 27 H Rate Blood Pressure 160/102 151/92 160/102 O2 Sat by Pulse 100 100 99 Oximetry 12/12/20 12/12/20 12/12/20 09:31 09:45 10:01 Pulse Rate 79 74 76 Respiratory 28 H 32 H 31 H Rate Blood Pressure 160/102 160/102 168/96 O2 Sat by Pulse 100 99 100 Oximetry 12/12/20 12/12/20 12/12/20 10:15 10:31 10:45 Pulse Rate 90 93 H 84 Respiratory 35 H 23 23 Rate Blood Pressure 168/96 168/96 149/95 O2 Sat by Pulse 95 94 96 Oximetry 12/12/20 12/12/20 12/12/20 11:01 11:15 11:31 Pulse Rate 82 83 79 Respiratory 42 H 34 H 33 H Rate Blood Pressure 150/93 150/93 150/93 O2 Sat by Pulse 97 99 98 Oximetry 12/12/20 12/12/20 12/12/20 11:45 12:01 12:15 Pulse Rate 87 85 82 Respiratory 47 H 42 H 40 H Rate Blood Pressure 150/93 157/99 150/93 O2 Sat by Pulse 95 98 97 Oximetry Constitutional: alert, appears uncomfortable, other (middle aged female with increased respiratory effort at rest) Eyes: non-icteric ENT: oropharynx moist Neck: supple, no lymphadenopathy, no JVD Effort: mildly labored Ascultation: Bilateral: rhonchi Percussion: Bilateral: not dull Cardiovascular: regular rate and rhythm Gastrointestinal: normoactive bowel sounds, soft, non-tender, non-distended Integumentary: normal Extremities: no cyanosis, no edema, pulses normal, no ischemia or petechiae Neurologic: normal mental status, non-focal exam, pupils equal and round, CN II- XII normal, motor strength normal and Psychiatric: mood appropriate, affect normal CBC and BMP: 12/13/20 07:25 12/13/20 07:25 ABG, PT/INR, D-dimer: ABG ABG pH 7.449 (7.320-7.450) 12/10/20 08:45 POC ABG pCO2 36.5 mmHg (32.0-48.0) 12/10/20 08:45 POC ABG pO2 64.5 mmHg (83-108) L 12/10/20 08:45 POC ABG HCO3 24.7 12/10/20 08:45 ABG O2 Saturation 91.0 (0-100) 12/10/20 08:45 PT/INR, D-dimer PT 16.4 Sec. (12.2-14.9) H 12/08/20 00:15 INR 1.27 (0.87-1.13) H 12/08/20 00:15 D-Dimer 752.84 ng/mlDDU (0-234) H 12/12/20 05:01 Abnormal lab findings: Abnormal Labs 12/08/20 12/08/20 12/08/20 00:15 00:15 00:15 WBC 17.0 H RBC 5.40 H Hgb 8.3 L Hct 29.7 L MCV 55 L MCH 16 L MCHC 28 L RDW 25.0 H Plt Count 464 H [place] # (Auto) Seg Neutrophils % Seg Neuts % (Manual) 92.0 H Lymphocytes % (Manual) 1.0 L Nucleated RBC % Seg Neutrophils # Seg Neutrophils # Man 15.6 H Lymphocytes # (Manual) 0.2 L Monocytes # (Manual) PT 16.4 H INR 1.27 H D-Dimer 1129.87 H POC ABG pO2 ABG Hemoglobin ABG Oxyhemoglobin ABG Potassium ABG Chloride ABG Glucose Potassium 3.1 L Chloride BUN Creatinine Glucose 128 H Lactic Acid Calcium 8.3 L Ferritin Total Bilirubin 1.90 H AST 309 H ALT 1384 H Alkaline Phosphatase 440 H Lactate Dehydrogenase C-Reactive Protein Total Protein Albumin 3.2 L Arterial Blood Glucose Coronavirus (PCR) 12/08/20 12/08/20 12/08/20 00:15 00:15 00:15 WBC RBC Hgb Hct MCV MCH MCHC RDW Plt Count [place] # (Auto) Seg Neutrophils % Seg Neuts % (Manual) Lymphocytes % (Manual) Nucleated RBC % Seg Neutrophils # Seg Neutrophils # Man Lymphocytes # (Manual) Monocytes # (Manual) PT INR D-Dimer POC ABG pO2 ABG Hemoglobin ABG Oxyhemoglobin ABG Potassium ABG Chloride ABG Glucose Potassium Chloride BUN Creatinine Glucose Lactic Acid 2.30 H* Calcium Ferritin 289.8 H Total Bilirubin AST ALT Alkaline Phosphatase Lactate Dehydrogenase 608 H C-Reactive Protein 20.70 H Total Protein Albumin Arterial Blood Glucose Coronavirus (PCR) 12/08/20 12/08/20 12/08/20 02:16 09:49 10:30 WBC RBC Hgb Hct MCV MCH MCHC RDW Plt Count [place] # (Auto) Seg Neutrophils % Seg Neuts % (Manual) Lymphocytes % (Manual) Nucleated RBC % Seg Neutrophils # Seg Neutrophils # Man Lymphocytes # (Manual) Monocytes # (Manual) PT INR D-Dimer POC ABG pO2 ABG Hemoglobin ABG Oxyhemoglobin ABG Potassium ABG Chloride ABG Glucose Potassium Chloride BUN Creatinine Glucose Lactic Acid 2.50 H* 2.40 H* Calcium Ferritin Total Bilirubin AST ALT Alkaline Phosphatase Lactate Dehydrogenase C-Reactive Protein Total Protein Albumin Arterial Blood Glucose Coronavirus (PCR) Positive A 12/09/20 12/09/20 12/09/20 04:33 04:33 09:13 WBC 21.0 H RBC 5.12 H Hgb 8.2 L Hct 29.1 L MCV 57 L MCH 16 L MCHC 28 L RDW 24.6 H Plt Count 509 H [place] # (Auto) 1.3 H Seg Neutrophils % 84.3 H Seg Neuts % (Manual) 93.0 H Lymphocytes % (Manual) 2.0 L Nucleated RBC % 2.0 H Seg Neutrophils # 17.8 H Seg Neutrophils # Man 19.5 H Lymphocytes # (Manual) 0.4 L Monocytes # (Manual) PT INR D-Dimer POC ABG pO2 ABG Hemoglobin ABG Oxyhemoglobin ABG Potassium ABG Chloride ABG Glucose Potassium 3.5 L Chloride BUN 30 H 29 H Creatinine Glucose 190 H 129 H Lactic Acid Calcium Ferritin Total Bilirubin AST 276 H ALT 867 H Alkaline Phosphatase 685 H Lactate Dehydrogenase C-Reactive Protein Total Protein Albumin 3.1 L Arterial Blood Glucose Coronavirus (PCR) 12/09/20 12/10/20 12/10/20 19:16 05:04 05:04 WBC RBC Hgb Hct MCV MCH MCHC RDW Plt Count [place] # (Auto) Seg Neutrophils % Seg Neuts % (Manual) Lymphocytes % (Manual) Nucleated RBC % Seg Neutrophils # Seg Neutrophils # Man Lymphocytes # (Manual) Monocytes # (Manual) PT INR D-Dimer POC ABG pO2 ABG Hemoglobin ABG Oxyhemoglobin ABG Potassium ABG Chloride ABG Glucose Potassium 3.4 L Chloride BUN 25 H Creatinine Glucose 184 H Lactic Acid 2.80 H* 3.30 H* Calcium 7.9 L Ferritin Total Bilirubin AST 277 H ALT 722 H Alkaline Phosphatase 773 H Lactate Dehydrogenase C-Reactive Protein Total Protein Albumin 2.9 L Arterial Blood Glucose Coronavirus (PCR) 12/10/20 12/10/20 12/10/20 08:11 08:45 11:15 WBC RBC Hgb Hct MCV MCH MCHC RDW Plt Count [place] # (Auto) Seg Neutrophils % Seg Neuts % (Manual) Lymphocytes % (Manual) Nucleated RBC % Seg Neutrophils # Seg Neutrophils # Man Lymphocytes # (Manual) Monocytes # (Manual) PT INR D-Dimer POC ABG pO2 64.5 L ABG Hemoglobin 7.6 L ABG Oxyhemoglobin 90.2 L ABG Potassium 3.3 L ABG Chloride 108.0 H ABG Glucose 126 H Potassium Chloride BUN Creatinine Glucose Lactic Acid 2.10 H* 2.40 H* Calcium Ferritin Total Bilirubin AST ALT Alkaline Phosphatase Lactate Dehydrogenase C-Reactive Protein Total Protein Albumin Arterial Blood Glucose 126 H Coronavirus (PCR) 12/10/20 12/10/20 12/11/20 13:36 19:13 00:49 WBC RBC Hgb Hct MCV MCH MCHC RDW Plt Count [place] # (Auto) Seg Neutrophils % Seg Neuts % (Manual) Lymphocytes % (Manual) Nucleated RBC % Seg Neutrophils # Seg Neutrophils # Man Lymphocytes # (Manual) Monocytes # (Manual) PT INR D-Dimer POC ABG pO2 ABG Hemoglobin ABG Oxyhemoglobin ABG Potassium ABG Chloride ABG Glucose Potassium 3.4 L Chloride BUN Creatinine Glucose Lactic Acid 3.40 H* 2.30 H* Calcium Ferritin Total Bilirubin AST ALT Alkaline Phosphatase Lactate Dehydrogenase C-Reactive Protein Total Protein Albumin Arterial Blood Glucose Coronavirus (PCR) 12/11/20 12/11/20 12/11/20 05:34 05:34 10:06 WBC RBC Hgb Hct MCV MCH MCHC RDW Plt Count [place] # (Auto) Seg Neutrophils % Seg Neuts % (Manual) Lymphocytes % (Manual) Nucleated RBC % Seg Neutrophils # Seg Neutrophils # Man Lymphocytes # (Manual) Monocytes # (Manual) PT INR D-Dimer POC ABG pO2 ABG Hemoglobin ABG Oxyhemoglobin ABG Potassium ABG Chloride ABG Glucose Potassium Chloride 108.1 H BUN Creatinine 0.4 L Glucose 160 H Lactic Acid 2.30 H* 2.90 H* Calcium 8.3 L Ferritin Total Bilirubin AST 249 H ALT 589 H Alkaline Phosphatase 701 H Lactate Dehydrogenase C-Reactive Protein Total Protein 5.9 L Albumin 3.0 L Arterial Blood Glucose Coronavirus (PCR) 12/11/20 12/11/20 12/11/20 12:38 12:38 12:38 WBC RBC Hgb Hct MCV MCH MCHC RDW Plt Count [place] # (Auto) Seg Neutrophils % Seg Neuts % (Manual) Lymphocytes % (Manual) Nucleated RBC % Seg Neutrophils # Seg Neutrophils # Man Lymphocytes # (Manual) Monocytes # (Manual) PT INR D-Dimer 725.41 H POC ABG pO2 ABG Hemoglobin ABG Oxyhemoglobin ABG Potassium ABG Chloride ABG Glucose Potassium Chloride BUN Creatinine Glucose Lactic Acid 2.50 H* Calcium Ferritin Total Bilirubin AST ALT Alkaline Phosphatase Lactate Dehydrogenase 447 H C-Reactive Protein 2.90 H Total Protein Albumin Arterial Blood Glucose Coronavirus (PCR) 12/12/20 12/12/20 12/12/20 05:01 05:01 05:01 WBC 15.3 H RBC Hgb 8.1 L Hct 28.4 L MCV 57 L MCH 16 L MCHC 29 L RDW 25.0 H Plt Count 809 H [place] # (Auto) Seg Neutrophils % Seg Neuts % (Manual) 83.0 H Lymphocytes % (Manual) 10.0 L Nucleated RBC % 2.0 H Seg Neutrophils # Seg Neutrophils # Man 12.7 H Lymphocytes # (Manual) Monocytes # (Manual) 1.1 H PT INR D-Dimer 752.84 H POC ABG pO2 ABG Hemoglobin ABG Oxyhemoglobin ABG Potassium ABG Chloride ABG Glucose Potassium Chloride BUN 20 H Creatinine 0.4 L Glucose 120 H Lactic Acid Calcium Ferritin Total Bilirubin AST 121 H ALT 469 H Alkaline Phosphatase 633 H Lactate Dehydrogenase 511 H C-Reactive Protein 3.50 H Total Protein Albumin 3.1 L Arterial Blood Glucose Coronavirus (PCR) Chest x-ray: report reviewed, image reviewed CT scan - chest: report reviewed, image reviewed Additional Studies: CHEST 1 VIEW 12/07/20 INDICATION: Dyspnea. COMPARISON: 11/28/2020 FINDINGS: SUPPORT DEVICES: None. HEART: Within normal limits. LUNGS/PLEURA: Mild patchy multifocal airspace disease. ADDITIONAL FINDINGS: None. IMPRESSION: 1. Pulmonary findings as above. CTA chest with contrast 12/08/20 INDICATION : Shortness of breath, Hypoxia, elevated D-dimer. TECHNIQUE: Axial imaging performed through the chest, with contrast bolus timing set to maximize opacification of the pulmonary arteries. 3-plane MIP reformatted images were obtained. All CT scans at this location are performed using CT dose reduction for ALARA by means of automated exposure control. 100 mL of intravenous contrast administered. COMPARISON: None FINDINGS: Bolus/PTE: Contrast bolus timing is adequate. No filling defect is present to suggest PTE. Mediastinum: Heart and great vessels appear normal. No pathologic mediastinal adenopathy. Lungs: There is patchy diffuse ground glass predominant airspace disease and also mild bibasilar consolidation/atelectasis. No pleural effusion. Upper abdomen: Limited imaging of the upper abdomen shows nothing acute. Bones: No acute osseous abnormality. IMPRESSION: 1. Negative for PTE. 2. Pulmonary findings as above suggesting an atypical etiology versus interstitial edema. DUPLEX DOPPLER LOWER EXTREMITY VEINS, BILATERAL 12/08/20 INDICATION / CLINICAL INFORMATION: Elevated d-dimer, SOB. TECHNIQUE: Duplex doppler imaging was performed through the veins of both lower extremities using venous compression and other maneuvers. COMPARISON: None available. FINDINGS: RIGHT COMMON FEMORAL VEIN: Negative. RIGHT FEMORAL VEIN: Negative. RIGHT POPLITEAL VEIN: Negative. RIGHT CALF VEINS: Negative. LEFT COMMON FEMORAL VEIN: Negative. LEFT FEMORAL VEIN: Negative. LEFT POPLITEAL VEIN: Negative. LEFT CALF VEINS: Negative. ADDITIONAL FINDINGS: None. IMPRESSION: 1. No sonographic evidence for DVT in either lower extremity. Allied health notes reviewed: nursing
[2020-12-12] MEDS: LORazepam 2 MG/ML VIAL IV PRN (15:37)
--- NOTE | 2020-12-12 16:25 | Ultrasound Report ---
ULTRASOUND ABDOMEN, LIMITED INDICATION / CLINICAL INFORMATION: Elevated LFTs. COMPARISON: None available. FINDINGS: Technically limited/difficult exam. PANCREAS: Visualized portion shows no significant abnormality. AORTA: No significant abnormality. IVC: No significant abnormality. LIVER: The liver is normal in size measuring 14.3 cm .No focal hepatic lesion identified. Normal hepa topedal blood flow within the main portal vein. GALLBLADDER: No significant abnormality. BILE DUCTS: Borderline biliary dilatation. Common bile duct measures 7 mm. RIGHT KIDNEY: The right kidney measures 11.2 cm. No significant abnormality. FREE FLUID: None. ADDITIONAL FINDINGS: None. IMPRESSION: 1. Borderline biliary dilatation. No sonographic evidence of mass or distal obstruction. No gallstone s identified. Scribed by: Noreen Alex RDMS, RVT Scribed: 12/12/2020 3:17 PM I have reviewed the images, agree with this report, and edited this report as needed. Signer Name: Sruesh Martinez MD Signed: 12/12/2020 4:21 PM Workstation Name: [id number]
[2020-12-12] MEDS: REMDESIVIR 100 MG in SODIUM CHLORIDE 0.9% 250ML 250 ML IV SCH (22:58)
[2020-12-12] MEDS: cefTRIAXone/NS 2 GM/100 ML 2 GM/100 ML BAG IV SCH (23:19)
[2020-12-12] MEDS: AZITHROMYCIN/NS 500 MG/250 ML 500 MG/250 ML BAG IV SCH (23:20)
[2020-12-13] MEDS: oxyCODONE /ACETAMINOPHEN 5-325MG TAB PO PRN (05:32)
[2020-12-13 07:56] LABS: Hematocrit 24.3 % (30.3-42.9); Hemoglobin 7.2 gm/dl (10.1-14.3); Mean Corpuscular HGB Conc 30 % (30-34); Platelet Count 634 K/mm3 (140-440); Red Blood Count 4.26 M/mm3 (3.65-5.03)
[2020-12-13 08:03] LABS: Mean Corpuscular Volume 57 fl (79-97); Red Cell Distribution Width 25.5 % (13.2-15.2)
[2020-12-13 08:10] LABS: Hepatitis B Surface Antigen Nonreactive (Negative)
[2020-12-13 08:11] LABS: Alanine Aminotransferase 295 units/L (7-56); Albumin 2.7 g/dL (3.9-5); Bilirubin,Direct 0.3 mg/dL (0-0.2); Blood Urea Nitrogen 25 mg/dL (7-17); Calcium 8.4 mg/dL (8.4-10.2); Hemolysis Index 2
[2020-12-13 08:12] LABS: BUN/Creatinine Ratio 63; Hepatitis C Virus Antibody Non-Reactive (NonReactive)
[2020-12-13] MEDS: ASCORBIC ACID 500 MG TAB PO SCH ×2 (10:35→21:49)
[2020-12-13] MEDS: FAMOTIDINE 20 MG TAB PO SCH ×2 (10:35→21:48)
[2020-12-13] MEDS: CHOLECALCIFEROL (VIT D3) 1000 UNIT (25 mcg) TAB PO SCH (10:35)
[2020-12-13] MEDS: ZINC SULFATE 220 MG CAP PO SCH (10:35)
[2020-12-13] MEDS: dexAMETHasone 4 MG/ML VIAL IV SCH (10:35)
[2020-12-13] MEDS: POTASSIUM CHLORIDE ER 20 MEQ TAB PO SCH (10:36)
[2020-12-13] MEDS: ENOXAPARIN 30 MG/0.3 ML INJ SUB-Q SCH ×2 (10:37→21:48)
--- NOTE | 2020-12-13 12:18 | Progress Note ---
Assessment and Plan 50-year-old female with history of hypertension was brought to the emergency room because of shortness of breath, cough, fever, Covid positive. Patient was diagnosed with COVID-19 1 week ago. Since then patient complained of worsening shortness of breath. Patient states she has not seen a physician for this. Patient states she does not take any medicine. Patient states the fever is fluctuating. Patient states it responds well to Tylenol. Patient states her cough is dry. Patient states she has not been vaccinated for COVID-19. Patient complains of chills. Patient denies nausea vomiting. Patient denies diarrhea. Patient denies abdominal pain. Patient denies chest pain. patient's ox saturation was 82%. Patient was found to have acute respiratory failure. Patient WBC 17.0 and chest x-ray shows pneumonia secondary to Covid. Patient was put on BiPAP Patient awake and having slight increased work of breathing. Patient is on high flow O2 , 10 litres and O2 saturation running 97%. Patient afebrile and has leukocytosis. Chest xray done 12/07/20 reported here is patchy diffuse ground glass predominant airspace disease and also mild bibasilar consolidation/atelectasis. No pleural effusion. CT of chest done 12/08/20 reported Negative for PTE. Pulmonary findings as above suggesting an atypical etiology versus interstitial edema. Venous doppler studies of legs 12/08/20 No sonographic evidence for DVT in ei ther lower extremity. Patient presently on Dexamethasone, REMDESIVIR, S/C Lovenox, Famotidine.Albu terol inhaler. Patient was seen in the emergency department. Patients condition critical. I spent critical care time of 45 minutes by reviewing the chart, examine the patient, review chest xray, CTA of chest, venous doppler studies, talking to the nursing staff, respiratory therapy, and work out plan of treatment in this critically ill COVID patient. - Patient Problems (1) Acute respiratory failure Current Visit: Yes Status: Acute Plan to address problem: High flow O2, 10 litres. Continue dexamethasone Continue S/C Lovenox. Continue Famotidine. Albuterol inhaler (2) COVID-19 Current Visit: Yes Status: Acute Plan to address problem: Patient is on Dexamethasone and REMDESIVIR (3) Hypertension Current Visit: Yes Status: Acute Plan to address problem: Management as per primary care. (4) Pneumonia Current Visit: Yes Status: Acute Qualifiers: Pneumonia type: due to unspecified organism Laterality: bilateral Lung location: unspecified part of lung Qualified Code(s): J18.9 - Pneumonia, unspecified organism Plan to address problem: Patient is on short course of ceftriaxone and zithromax. Antibiotics as per infectious diseases. Subjective Date of service: 12/13/20 Principal diagnosis: Ac hypoxemic resp failure; COVID-19 infxn; Pneumonia; Sepsis Interval history: 50-year-old female with history of hypertension was brought to the emergency room because of shortness of breath, cough, fever, Covid positive. Patient was diagnosed with COVID-19 1 week ago. Since then patient complained of worsening shortness of breath. Patient states she has not seen a physician for this. Patient states she does not take any medicine. Patient states the fever is fluctuating. Patient states it responds well to Tylenol. Patient states her cough is dry. Patient states she has not been vaccinated for COVID-19. Patient complains of chills. Patient denies nausea vomiting. Patient denies diarrhea. Patient denies abdominal pain. Patient denies chest pain. patient's ox saturation was 82%. Patient was found to have acute respiratory failure. Patient WBC 17.0 and chest x-ray shows pneumonia secondary to Covid. Patient was put on BiPAP Patient awake and having slight increased work of breathing. Patient is on high flow O2 , 10 litres and O2 saturation running 97%. Patient afebrile and has leukocytosis. Chest xray done 12/07/20 reported here is patchy diffuse ground glass predominant airspace disease and also mild bibasilar consolidation/atelectasis. No pleural effusion. CT of chest done 12/08/20 reported Negative for PTE. Pulmonary findings as above suggesting an atypical etiology versus interstitial edema. Venous doppler studies of legs 12/08/20 No sonographic evidence for DVT in either lower extremity. Patient presently on Dexamethasone, REMDESIVIR, S/C Lovenox, Famotidine.Albuterol inhaler. Objective Vital Signs - 12hr 12/13/20 12/13/20 12/13/20 05:32 08:00 08:03 Temperature 97.4 F L Pulse Rate 73 102 H Pulse Rate [ 75 From Monitor] Respiratory 36 H 28 H Rate Blood Pressure 137/97 O2 Sat by Pulse 100 Oximetry 12/13/20 12/13/20 12/13/20 08:11 08:21 08:31 Temperature Pulse Rate 100 H 99 H 104 H Pulse Rate [ From Monitor] Respiratory 21 24 49 H Rate Blood Pressure 147/108 147/108 192/114 O2 Sat by Pulse 95 94 94 Oximetry 12/13/20 12/13/20 12/13/20 08:37 08:41 08:51 Temperature Pulse Rate 91 H 104 H 104 H Pulse Rate [ From Monitor] Respiratory 45 H 52 H 37 H Rate Blood Pressure 147/94 192/114 192/114 O2 Sat by Pulse 98 95 94 Oximetry 12/13/20 12/13/20 12/13/20 09:01 09:11 09:21 Temperature Pulse Rate 103 H 109 H 111 H Pulse Rate [ From Monitor] Respiratory 30 H 29 H 30 H Rate Blood Pressure 171/99 171/99 171/99 O2 Sat by Pulse 94 94 93 Oximetry 12/13/20 12/13/20 12/13/20 09:31 09:41 09:51 Temperature Pulse Rate 107 H 109 H 103 H Pulse Rate [ From Monitor] Respiratory 20 17 53 H Rate Blood Pressure 174/103 174/103 174/103 O2 Sat by Pulse 95 94 95 Oximetry 12/13/20 12/13/20 12/13/20 10:01 10:11 10:21 Temperature Pulse Rate 103 H 102 H 101 H Pulse Rate [ From Monitor] Respiratory 40 H 29 H 22 Rate Blood Pressure 188/101 188/101 188/101 O2 Sat by Pulse 95 94 94 Oximetry 12/13/20 12/13/20 12/13/20 10:31 10:41 10:45 Temperature Pulse Rate 93 H 117 H Pulse Rate [ From Monitor] Respiratory 29 H 19 Rate Blood Pressure 183/96 183/96 O2 Sat by Pulse 95 94 99 Oximetry 12/13/20 12/13/20 12/13/20 10:51 11:01 11:11 Temperature Pulse Rate 102 H 98 H 99 H Pulse Rate [ From Monitor] Respiratory 24 24 30 H Rate Blood Pressure 183/96 175/98 175/98 O2 Sat by Pulse 94 94 93 Oximetry 12/13/20 12/13/20 12/13/20 11:21 11:31 11:41 Temperature Pulse Rate 100 H 97 H 96 H Pulse Rate [ From Monitor] Respiratory 21 39 H 28 H Rate Blood Pressure 175/98 158/84 158/84 O2 Sat by Pulse 93 95 95 Oximetry 12/13/20 12/13/20 12/13/20 11:51 12:00 12:01 Temperature Pulse Rate 98 H 92 H 104 H Pulse Rate [ 93 H From Monitor] Respiratory 23 32 H 23 Rate Blood Pressure 158/84 148/90 O2 Sat by Pulse 94 95 95 Oximetry Constitutional: alert, appears uncomfortable, other (middle aged female with increased respiratory effort at rest) Eyes: non-icteric ENT: oropharynx moist Neck: supple, no lymphadenopathy, no JVD Effort: mildly labored Ascultation: Bilateral: rhonchi Percussion: Bilateral: not dull Cardiovascular: regular rate and rhythm Gastrointestinal: normoactive bowel sounds, soft, non-tender, non-distended Integumentary: normal Extremities: no cyanosis, no edema, pulses normal, no ischemia or petechiae Neurologic: normal mental status, non-focal exam, pupils equal and round, CN II- XII normal, motor strength normal and Psychiatric: mood appropriate, affect normal CBC and BMP: 12/13/20 07:25 12/13/20 07:25 ABG, PT/INR, D-dimer: ABG ABG pH 7.449 (7.320-7.450) 12/10/20 08:45 POC ABG pCO2 36.5 mmHg (32.0-48.0) 12/10/20 08:45 POC ABG pO2 64.5 mmHg (83-108) L 12/10/20 08:45 POC ABG HCO3 24.7 12/10/20 08:45 ABG O2 Saturation 91.0 (0-100) 12/10/20 08:45 PT/INR, D-dimer PT 16.4 Sec. (12.2-14.9) H 12/08/20 00:15 INR 1.27 (0.87-1.13) H 12/08/20 00:15 D-Dimer 752.84 ng/mlDDU (0-234) H 12/12/20 05:01 Abnormal lab findings: Abnormal Labs 12/08/20 12/08/20 12/08/20 00:15 00:15 00:15 WBC 17.0 H RBC 5.40 H Hgb 8.3 L Hct 29.7 L MCV 55 L MCH 16 L MCHC 28 L RDW 25.0 H Plt Count 464 H [place] # (Auto) Seg Neutrophils % Seg Neuts % (Manual) 92.0 H Lymphocytes % (Manual) 1.0 L Nucleated RBC % Seg Neutrophils # Seg Neutrophils # Man 15.6 H Lymphocytes # (Manual) 0.2 L Monocytes # (Manual) PT 16.4 H INR 1.27 H D-Dimer 1129.87 H POC ABG pO2 ABG Hemoglobin ABG Oxyhemoglobin ABG Potassium ABG Chloride ABG Glucose Potassium 3.1 L Chloride BUN Creatinine Glucose 128 H Lactic Acid Calcium 8.3 L Ferritin Total Bilirubin 1.90 H Direct Bilirubin AST 309 H ALT 1384 H Alkaline Phosphatase 440 H Lactate Dehydrogenase C-Reactive Protein Total Protein Albumin 3.2 L Arterial Blood Glucose Coronavirus (PCR) 12/08/20 12/08/20 12/08/20 00:15 00:15 00:15 WBC RBC Hgb Hct MCV MCH MCHC RDW Plt Count [place] # (Auto) Seg Neutrophils % Seg Neuts % (Manual) Lymphocytes % (Manual) Nucleated RBC % Seg Neutrophils # Seg Neutrophils # Man Lymphocytes # (Manual) Monocytes # (Manual) PT INR D-Dimer POC ABG pO2 ABG Hemoglobin ABG Oxyhemoglobin ABG Potassium ABG Chloride ABG Glucose Potassium Chloride BUN Creatinine Glucose Lactic Acid 2.30 H* Calcium Ferritin 289.8 H Total Bilirubin Direct Bilirubin AST ALT Alkaline Phosphatase Lactate Dehydrogenase 608 H C-Reactive Protein 20.70 H Total Protein Albumin Arterial Blood Glucose Coronavirus (PCR) 12/08/20 12/08/20 12/08/20 02:16 09:49 10:30 WBC RBC Hgb Hct MCV MCH MCHC RDW Plt Count [place] # (Auto) Seg Neutrophils % Seg Neuts % (Manual) Lymphocytes % (Manual) Nucleated RBC % Seg Neutrophils # Seg Neutrophils # Man Lymphocytes # (Manual) Monocytes # (Manual) PT INR D-Dimer POC ABG pO2 ABG Hemoglobin ABG Oxyhemoglobin ABG Potassium ABG Chloride ABG Glucose Potassium Chloride BUN Creatinine Glucose Lactic Acid 2.50 H* 2.40 H* Calcium Ferritin Total Bilirubin Direct Bilirubin AST ALT Alkaline Phosphatase Lactate Dehydrogenase C-Reactive Protein Total Protein Albumin Arterial Blood Glucose Coronavirus (PCR) Positive A 12/09/20 12/09/20 12/09/20 04:33 04:33 09:13 WBC 21.0 H RBC 5.12 H Hgb 8.2 L Hct 29.1 L MCV 57 L MCH 16 L MCHC 28 L RDW 24.6 H Plt Count 509 H [place] # (Auto) 1.3 H Seg Neutrophils % 84.3 H Seg Neuts % (Manual) 93.0 H Lymphocytes % (Manual) 2.0 L Nucleated RBC % 2.0 H Seg Neutrophils # 17.8 H Seg Neutrophils # Man 19.5 H Lymphocytes # (Manual) 0.4 L Monocytes # (Manual) PT INR D-Dimer POC ABG pO2 ABG Hemoglobin ABG Oxyhemoglobin ABG Potassium ABG Chloride ABG Glucose Potassium 3.5 L Chloride BUN 30 H 29 H Creatinine Glucose 190 H 129 H Lactic Acid Calcium Ferritin Total Bilirubin Direct Bilirubin AST 276 H ALT 867 H Alkaline Phosphatase 685 H Lactate Dehydrogenase C-Reactive Protein Total Protein Albumin 3.1 L Arterial Blood Glucose Coronavirus (PCR) 12/09/20 12/10/20 12/10/20 19:16 05:04 05:04 WBC RBC Hgb Hct MCV MCH MCHC RDW Plt Count [place] # (Auto) Seg Neutrophils % Seg Neuts % (Manual) Lymphocytes % (Manual) Nucleated RBC % Seg Neutrophils # Seg Neutrophils # Man Lymphocytes # (Manual) Monocytes # (Manual) PT INR D-Dimer POC ABG pO2 ABG Hemoglobin ABG Oxyhemoglobin ABG Potassium ABG Chloride ABG Glucose Potassium 3.4 L Chloride BUN 25 H Creatinine Glucose 184 H Lactic Acid 2.80 H* 3.30 H* Calcium 7.9 L Ferritin Total Bilirubin Direct Bilirubin AST 277 H ALT 722 H Alkaline Phosphatase 773 H Lactate Dehydrogenase C-Reactive Protein Total Protein Albumin 2.9 L Arterial Blood Glucose Coronavirus (PCR) 12/10/20 12/10/20 12/10/20 08:11 08:45 11:15 WBC RBC Hgb Hct MCV MCH MCHC RDW Plt Count [place] # (Auto) Seg Neutrophils % Seg Neuts % (Manual) Lymphocytes % (Manual) Nucleated RBC % Seg Neutrophils # Seg Neutrophils # Man Lymphocytes # (Manual) Monocytes # (Manual) PT INR D-Dimer POC ABG pO2 64.5 L ABG Hemoglobin 7.6 L ABG Oxyhemoglobin 90.2 L ABG Potassium 3.3 L ABG Chloride 108.0 H ABG Glucose 126 H Potassium Chloride BUN Creatinine Glucose Lactic Acid 2.10 H* 2.40 H* Calcium Ferritin Total Bilirubin Direct Bilirubin AST ALT Alkaline Phosphatase Lactate Dehydrogenase C-Reactive Protein Total Protein Albumin Arterial Blood Glucose 126 H Coronavirus (PCR) 12/10/20 12/10/20 12/11/20 13:36 19:13 00:49 WBC RBC Hgb Hct MCV MCH MCHC RDW Plt Count [place] # (Auto) Seg Neutrophils % Seg Neuts % (Manual) Lymphocytes % (Manual) Nucleated RBC % Seg Neutrophils # Seg Neutrophils # Man Lymphocytes # (Manual) Monocytes # (Manual) PT INR D-Dimer POC ABG pO2 ABG Hemoglobin ABG Oxyhemoglobin ABG Potassium ABG Chloride ABG Glucose Potassium 3.4 L Chloride BUN Creatinine Glucose Lactic Acid 3.40 H* 2.30 H* Calcium Ferritin Total Bilirubin Direct Bilirubin AST ALT Alkaline Phosphatase Lactate Dehydrogenase C-Reactive Protein Total Protein Albumin Arterial Blood Glucose Coronavirus (PCR) 12/11/20 12/11/20 12/11/20 05:34 05:34 10:06 WBC RBC Hgb Hct MCV MCH MCHC RDW Plt Count [place] # (Auto) Seg Neutrophils % Seg Neuts % (Manual) Lymphocytes % (Manual) Nucleated RBC % Seg Neutrophils # Seg Neutrophils # Man Lymphocytes # (Manual) Monocytes # (Manual) PT INR D-Dimer POC ABG pO2 ABG Hemoglobin ABG Oxyhemoglobin ABG Potassium ABG Chloride ABG Glucose Potassium Chloride 108.1 H BUN Creatinine 0.4 L Glucose 160 H Lactic Acid 2.30 H* 2.90 H* Calcium 8.3 L Ferritin Total Bilirubin Direct Bilirubin AST 249 H ALT 589 H Alkaline Phosphatase 701 H Lactate Dehydrogenase C-Reactive Protein Total Protein 5.9 L Albumin 3.0 L Arterial Blood Glucose Coronavirus (PCR) 12/11/20 12/11/20 12/11/20 12:38 12:38 12:38 WBC RBC Hgb Hct MCV MCH MCHC RDW Plt Count [place] # (Auto) Seg Neutrophils % Seg Neuts % (Manual) Lymphocytes % (Manual) Nucleated RBC % Seg Neutrophils # Seg Neutrophils # Man Lymphocytes # (Manual) Monocytes # (Manual) PT INR D-Dimer 725.41 H POC ABG pO2 ABG Hemoglobin ABG Oxyhemoglobin ABG Potassium ABG Chloride ABG Glucose Potassium Chloride BUN Creatinine Glucose Lactic Acid 2.50 H* Calcium Ferritin Total Bilirubin Direct Bilirubin AST ALT Alkaline Phosphatase Lactate Dehydrogenase 447 H C-Reactive Protein 2.90 H Total Protein Albumin Arterial Blood Glucose Coronavirus (PCR) 12/12/20 12/12/20 12/12/20 05:01 05:01 05:01 WBC 15.3 H RBC Hgb 8.1 L Hct 28.4 L MCV 57 L MCH 16 L MCHC 29 L RDW 25.0 H Plt Count 809 H [place] # (Auto) Seg Neutrophils % Seg Neuts % (Manual) 83.0 H Lymphocytes % (Manual) 10.0 L Nucleated RBC % 2.0 H Seg Neutrophils # Seg Neutrophils # Man 12.7 H Lymphocytes # (Manual) Monocytes # (Manual) 1.1 H PT INR D-Dimer 752.84 H POC ABG pO2 ABG Hemoglobin ABG Oxyhemoglobin ABG Potassium ABG Chloride ABG Glucose Potassium Chloride BUN 20 H Creatinine 0.4 L Glucose 120 H Lactic Acid Calcium Ferritin Total Bilirubin Direct Bilirubin AST 121 H ALT 469 H Alkaline Phosphatase 633 H Lactate Dehydrogenase 511 H C-Reactive Protein 3.50 H Total Protein Albumin 3.1 L Arterial Blood Glucose Coronavirus (PCR) 12/13/20 12/13/20 07:25 07:25 WBC 11.2 H RBC Hgb 7.2 L Hct 24.3 L MCV 57 L MCH 17 L MCHC RDW 25.5 H Plt Count 634 H [place] # (Auto) Seg Neutrophils % Seg Neuts % (Manual) Lymphocytes % (Manual) Nucleated RBC % Seg Neutrophils # Seg Neutrophils # Man Lymphocytes # (Manual) Monocytes # (Manual) PT INR D-Dimer POC ABG pO2 ABG Hemoglobin ABG Oxyhemoglobin ABG Potassium ABG Chloride ABG Glucose Potassium Chloride 107.6 H BUN 25 H Creatinine 0.4 L Glucose 132 H Lactic Acid Calcium Ferritin Total Bilirubin Direct Bilirubin 0.3 H AST 72 H ALT 295 H Alkaline Phosphatase 466 H Lactate Dehydrogenase C-Reactive Protein Total Protein 6.1 L Albumin 2.7 L Arterial Blood Glucose Coronavirus (PCR) Allied health notes reviewed: nursing
--- NOTE | 2020-12-13 12:40 | Progress Note ---
Assessment and Plan Assessment and plan: 50-year-old female with history of hypertension was brought to the emergency room because of shortness of breath, cough, fever, Covid positive. Patient was diagnosed with COVID-19 1 week ago. Since then patient complained of worsening shortness of breath. Patient states she has not seen a physician for this. Patient states she does not take any medicine. Patient states the fever is fluctuating. Patient states it responds well to Tylenol. Patient states her cough is dry. Patient states she has not been vaccinated for COVID-19. Patient complains of chills. Patient denies nausea vomiting. Patient denies diarrhea. Patient denies abdominal pain. Patient denies chest pain. patient's ox saturation was 82%. Patient was found to have acute respiratory failure. Patient WBC 17.0 and chest x-ray shows pneumonia secondary to Covid. Patient was put on BiPAP (1) Acute hypoxic respiratory failure 2/2 Covid 19 PNA pulmonary following and note reviewed Patient is on 35% Fio2 with O2 sat 93-94% (2) COVID-19 Current Visit: Yes Status: Acute Plan to address problem: ID note reviewed inflammatory markers reviewed cont. Dexamethasone x 10 days Cleared for starting remdesivir as LFTs < 10 times normal monitor markers 3. Severe sepsis procalcitonin results reviewed ID note reviewed cont. ceftriaxone and azithromycin Leucocytosis: 2/2 sepsis monitor CBC (4) Hypertension Current Visit: Yes Status: Acute Plan to address problem: Hydralazine 10 mg IV every 6 hours as needed she has no hx of HTN 5) Transaminitis: results reviewed cont. to monitor (6) anemia (7) DVT prophylaxis Current Visit: Yes Status: Acute Plan to address problem: will stop heparin and start on lovenox. Pepcid 20 mg p.o. twice daily for GI prophylaxis. Patient is a full code. 12/09/2020 -Patient was on BiPAP with FiO2 of 100%, patient desaturated when she was off BiPAP momentarily. I put her on D5 half-normal saline for maintenance. Titrate oxygen as tolerated. -Pulmonary consulted, ID consulted. -Patient has elevated ALT and AST and is not a candidate for remdesivir. -Patient is on IV antibiotics and procalcitonin level is elevated, ID recommends to continue with IV antibiotics. ID said patient is not a candidate for Actemra because of the infection with elevated procalcitonin level. 12/10; patient is on BiPAP, on Decadron. Remdesivir discontinued due to elevated liver enzymes. Patient not a candidate for Actemra because patient has elevated procalcitonin level. Continue with IV antibiotics. Prognosis is guarded. 12/11patient is A&O,A&O, c/o weakness and feels tired. C/O shortness of breath. requesting stool sofner. She denies f/c/CP/N/abd. pain 12/12: Continue supportive care. Wean oxygen as tolerated. Will obtain pulmonary consult will evaluate for possible Lasix therapy. Noted anemia with hemoglobin of 8.1 will monitor this closely. D-dimer is elevated so is AST and ALT and alk phos. This may preclude use of medications such as remdesivir which has been discontinued in relation to this. Patient remains critically ill. 12/13: Patient showing some improval, still with BiPAP requirements, continue supportive care, continued sterods, Remdesivr per ID, monitor renal function closely and LFT. wean oxygen as tolerated. Prognosis guarded The high probability of a clinically significant, sudden or life threatening deterioration of the [PULMONARY] system(s) required my full and direct attention, intervention and personal management. The aggregate critical care time was [35] minutes. This time is in addition to time spent performing reported procedures but includes the following: [X] Data Review and interpretation [X] Patient assessment and monitoring of vital signs [X] Documentation [X] Medication orders and management History Interval history: Patient seen and examined remains on BiPAP this morning. more rested than yesterday Hospitalist Physical - Physical exam Narrative exam: VITAL SIGNS: Reviewed. GENERAL: The patient appears normally developed, otherwise short of breath, vital signs as documented. HEAD: No signs of head trauma. EYES: Pupils are equal. Extraocular motions intact. EARS: Hearing grossly intact. MOUTH: Oropharynx is normal. NECK: No adenopathy, no JVD. CHEST: Chest with diminshed breath sounds bilaterally. No wheezes, rales, or rhonchi. CARDIAC: Regular rate and rhythm. S1 and S2, without murmurs, gallops, or rubs. VASCULAR: No Edema. Peripheral pulses normal and equal in all extremities. ABDOMEN: Soft, non tender and non distended. No rebound or guarding, and no masses palpated. Bowel Sounds normal. MUSCULOSKELETAL: Good range of motion of all major joints. Extremities without clubbing, cyanosis or edema. NEUROLOGIC EXAM: Alert and oriented x 3 No focal sensory or strength deficits. Speech normal. Follows commands. PSYCHIATRIC: Mood normal. SKIN: detail exam as documented in skin assessment - Constitutional Vitals: Temp Pulse Resp BP Pulse Ox 97.4 F L 104 H 23 148/90 95 12/13/20 08:00 12/13/20 12:01 12/13/20 12:01 12/13/20 12:01 12/13/20 12:01 General appearance: Present: no acute distress Results - Labs CBC & Chem 7: 12/13/20 07:25 12/13/20 07:25 Labs: Laboratory Last Values WBC 11.2 K/mm3 (4.5-11.0) H 12/13/20 07:25 RBC 4.26 M/mm3 (3.65-5.03) 12/13/20 07:25 Hgb 7.2 gm/dl (10.1-14.3) L 12/13/20 07:25 Hct 24.3 % (30.3-42.9) L 12/13/20 07:25 MCV 57 fl (79-97) L 12/13/20 07:25 MCH 17 pg (28-32) L 12/13/20 07:25 MCHC 30 % (30-34) 12/13/20 07:25 RDW 25.5 % (13.2-15.2) H 12/13/20 07:25 Plt Count 634 K/mm3 (140-440) H 12/13/20 07:25 [place] % (Auto) 6.0 % (0.0-7.3) 12/09/20 04:33 [place] # (Auto) 1.3 K/mm3 (0.0-0.8) H 12/09/20 04:33 Add Manual Diff Complete 12/12/20 05:01 Total Counted 100 12/12/20 05:01 Seg Neutrophils % 84.3 % (40.0-70.0) H 12/09/20 04:33 Seg Neuts % (Manual) 83.0 % (40.0-70.0) H 12/12/20 05:01 Band Neutrophils % 3.0 % 12/09/20 04:33 Lymphocytes % (Manual) 10.0 % (13.4-35.0) L 12/12/20 05:01 Monocytes % (Manual) 7.0 % (0.0-7.3) 12/12/20 05:01 Metamyelocytes % 1.0 % 12/08/20 00:15 Nucleated RBC % 2.0 % (0.0-0.9) H 12/12/20 05:01 Seg Neutrophils # 17.8 K/mm3 (1.8-7.7) H 12/09/20 04:33 Seg Neutrophils # Man 12.7 K/mm3 (1.8-7.7) H 12/12/20 05:01 Band Neutrophils # 0.0 K/mm3 12/12/20 05:01 Lymphocytes # (Manual) 1.5 K/mm3 (1.2-5.4) 12/12/20 05:01 Abs React Lymphs (Man) 0.0 K/mm3 12/12/20 05:01 Monocytes # (Manual) 1.1 K/mm3 (0.0-0.8) H 12/12/20 05:01 Eosinophils # (Manual) 0.0 K/mm3 (0.0-0.4) 12/12/20 05:01 Basophils # (Manual) 0.0 K/mm3 (0.0-0.1) 12/12/20 05:01 Metamyelocytes # 0.0 K/mm3 12/12/20 05:01 Myelocytes # 0.0 K/mm3 12/12/20 05:01 Promyelocytes # 0.0 K/mm3 12/12/20 05:01 Blast Cells # 0.0 K/mm3 12/12/20 05:01 WBC Morphology Not Reportable 12/12/20 05:01 Hypersegmented Neuts Not Reportable 12/12/20 05:01 Hyposegmented Neuts Not Reportable 12/12/20 05:01 Hypogranular Neuts Not Reportable 12/12/20 05:01 Smudge Cells Not Reportable 12/12/20 05:01 Toxic Granulation Not Reportable 12/12/20 05:01 Toxic Vacuolation Not Reportable 12/12/20 05:01 Dohle Bodies Not Reportable 12/12/20 05:01 Pelger-Huet Anomaly Not Reportable 12/12/20 05:01 Lauryn Rods Not Reportable 12/12/20 05:01 Platelet Estimate Consistent w auto 12/12/20 05:01 Clumped Platelets Not Reportable 12/12/20 05:01 Plt Clumps, EDTA Not Reportable 12/12/20 05:01 Large Platelets Not Reportable 12/12/20 05:01 Giant Platelets Not Reportable 12/12/20 05:01 Platelet Satelliting Not Reportable 12/12/20 05:01 Plt Morphology Comment Not Reportable 12/12/20 05:01 RBC Morphology Not Reportable 12/12/20 05:01 Dimorphic RBCs Not Reportable 12/12/20 05:01 Polychromasia Not Reportable 12/12/20 05:01 Hypochromasia 3+ 12/12/20 05:01 Poikilocytosis 1+ 12/12/20 05:01 Anisocytosis 2+ 12/12/20 05:01 Microcytosis 2+ 12/12/20 05:01 Macrocytosis Not Reportable 12/12/20 05:01 Spherocytes Not Reportable 12/12/20 05:01 Pappenheimer Bodies Not Reportable 12/12/20 05:01 Sickle Cells Not Reportable 12/12/20 05:01 Target Cells Not Reportable 12/12/20 05:01 Tear Drop Cells Few 12/12/20 05:01 Ovalocytes Few 12/12/20 05:01 Helmet Cells Not Reportable 12/12/20 05:01 [place] Bodies Not Reportable 12/12/20 05:01 Gomer Rings Not Reportable 12/12/20 05:01 [place] Cells Not Reportable 12/12/20 05:01 Bite Cells Not Reportable 12/12/20 05:01 Crenated Cell Not Reportable 12/12/20 05:01 Elliptocytes Few 12/12/20 05:01 Acanthocytes (Spur) Not Reportable 12/12/20 05:01 Rouleaux Not Reportable 12/12/20 05:01 Hemoglobin C Crystals Not Reportable 12/12/20 05:01 Schistocytes Not Reportable 12/12/20 05:01 Malaria parasites Not Reportable 12/12/20 05:01 Brant Bodies Not Reportable 12/12/20 05:01 Hem Pathologist Commnt No 12/12/20 05:01 PT 16.4 Sec. (12.2-14.9) H 12/08/20 00:15 INR 1.27 (0.87-1.13) H 12/08/20 00:15 APTT 29.6 Sec. (24.2-36.6) 12/08/20 00:15 D-Dimer 752.84 ng/mlDDU (0-234) H 12/12/20 05:01 ABG pH 7.449 (7.320-7.450) 12/10/20 08:45 POC ABG pCO2 36.5 mmHg (32.0-48.0) 12/10/20 08:45 POC ABG pO2 64.5 mmHg (83-108) L 12/10/20 08:45 POC ABG HCO3 24.7 12/10/20 08:45 ABG O2 Saturation 91.0 (0-100) 12/10/20 08:45 POC ABG Base Excess 0.8 12/10/20 08:45 ABG Hemoglobin 7.6 (12.0-17.5) L 12/10/20 08:45 ABG Oxyhemoglobin 90.2 (94-98) L 12/10/20 08:45 ABG Methemoglobin 0.1 (0.0-1.5) 12/10/20 08:45 ABG Sodium 139.9 mmol/L (136.0-145.0) 12/10/20 08:45 ABG Potassium 3.3 mmol/L (3.40-4.50) L 12/10/20 08:45 ABG Chloride 108.0 mmol/L (98-107) H 12/10/20 08:45 ABG Glucose 126 mg/dL (65-95) H 12/10/20 08:45 Carboxyhemoglobin 0.8 (0.5-1.5) 12/10/20 08:45 FiO2 % 35.0 12/10/20 08:45 Sodium 141 mmol/L (137-145) 12/13/20 07:25 Potassium 4.5 mmol/L (3.6-5.0) 12/13/20 07:25 Chloride 107.6 mmol/L (98-107) H 12/13/20 07:25 Carbon Dioxide 23 mmol/L (22-30) 12/13/20 07:25 Anion Gap 15 mmol/L 12/13/20 07:25 BUN 25 mg/dL (7-17) H 12/13/20 07:25 Creatinine 0.4 mg/dL (0.6-1.2) L 12/13/20 07:25 Estimated GFR > 60 ml/min 12/13/20 07:25 BUN/Creatinine Ratio 63 % 12/13/20 07:25 Glucose 132 mg/dL (65-100) H 12/13/20 07:25 Lactic Acid 2.50 mmol/L (0.7-2.0) H* 12/11/20 12:38 Calcium 8.4 mg/dL (8.4-10.2) 12/13/20 07:25 Ferritin 165.8 ng/mL (10.0-200.0) 12/11/20 12:38 Total Bilirubin 0.60 mg/dL (0.1-1.2) 12/13/20 07:25 Direct Bilirubin 0.3 mg/dL (0-0.2) H 12/13/20 07:25 AST 72 units/L (5-40) H 12/13/20 07:25 ALT 295 units/L (7-56) H 12/13/20 07:25 Alkaline Phosphatase 466 units/L (35-129) H 12/13/20 07:25 Lactate Dehydrogenase 511 units/L (91-180) H 12/12/20 05:01 C-Reactive Protein 3.50 mg/dL (0.00-1.30) H 12/12/20 05:01 Total Protein 6.1 g/dL (6.3-8.2) L 12/13/20 07:25 Albumin 2.7 g/dL (3.9-5) L 12/13/20 07:25 Albumin/Globulin Ratio 0.8 % 12/13/20 07:25 Procalcitonin 4.72 ng/mL (<0.15) 12/11/20 12:38 Arterial Blood Glucose 126 mg/dL (65-95) H 12/10/20 08:45 Coronavirus (PCR) Positive (Negative) A 12/08/20 10:30 Hepatitis A IgM Ab Non-reactive (NonReactive) 12/13/20 07:25 Hep Bs Antigen Nonreactive (Negative) 12/13/20 07:25 Hep B Core IgM Ab Non-reactive (NonReactive) 12/13/20 07:25 Hepatitis C Antibody Non-reactive (NonReactive) 12/13/20 07:25 Microbiology: Microbiology 12/08/20 00:15 Peripheral/Venous Blood Culture - Final NO GROWTH AFTER 5 DAYS 12/08/20 00:05 Peripheral/Venous Blood Culture - Final NO GROWTH AFTER 5 DAYS Kilpatrick/IV: Voiding Method Indwelling Catheter Active Medications - Current Medications Current Medications: Generic Name Dose Route Start Last Admin Trade Name Freq PRN Reason Stop Dose Admin Acetaminophen 650 mg 12/08/20 05:31 Acetaminophen 325 Mg Tab PO Q4H PRN Pain MILD(1-3)/Fever >100.5/STAPLETON Albuterol 2.5 mg 12/08/20 05:31 Albuterol 2.5 Mg/3 Ml Nebu IH Q4HRT PRN Shortness Of Breath Ascorbic Acid 500 mg 12/09/20 10:00 12/13/20 10:35 Ascorbic Acid 500 Mg Tab PO 500 mg BID DARIAN Administration Cholecalciferol 1,000 unit 12/09/20 10:00 12/13/20 10:35 Cholecalciferol (Vit D3) 1000 Unit (25 Mcg) Tab PO 1,000 unit QDAY DARIAN Administration Dexamethasone 6 mg 12/08/20 10:00 12/13/20 10:35 Dexamethasone 4 Mg/Ml Vial IV 12/17/20 10:01 6 mg DAILY DARIAN Administration Enoxaparin Sodium 30 mg 12/11/20 22:00 12/13/20 10:37 Enoxaparin 30 Mg/0.3 Ml Inj SUB-Q 30 mg BID DARIAN Administration Protocol Famotidine 20 mg 12/08/20 10:00 12/13/20 10:35 Famotidine 20 Mg Tab PO 20 mg BID DARIAN Administration Hydromorphone HCl 0.5 mg 12/08/20 05:31 12/10/20 10:13 Hydromorphone 1 Mg/1 Ml Inj IV 0.5 mg Q3H PRN Administration Pain , Severe (7-10) REMDESIVIR 100 mg/ Sodium 250 mls @ 500 mls/hr 12/12/20 21:00 12/12/20 22:58 Chloride IV 12/15/20 21:29 500 mls/hr Q24HR@2100 DARIAN Administration Lorazepam 1 mg 12/09/20 13:02 12/12/20 15:37 Lorazepam 2 Mg/Ml Vial IV 1 mg Q4H PRN Administration Anxiety Ondansetron HCl 4 mg 12/08/20 05:31 Ondansetron 4 Mg/2 Ml Inj IV Q8H PRN Nausea And Vomiting Oxycodone/Acetaminophen 1 tab 12/08/20 05:31 12/13/20 05:32 Oxycodone /Acetaminophen 5-325mg Tab PO 1 tab Q6H PRN Administration Pain, Moderate (4-6) Polyethylene Glycol 17 gm 12/11/20 15:53 Polyethylene Glycol 3350 17 Gm Powder PO QDAY PRN Constipation Potassium Chloride 40 meq 12/10/20 19:00 12/13/20 10:36 Potassium Chloride Er 20 Meq Tab PO 40 meq QDAY DARIAN Administration Sodium Chloride 10 ml 12/08/20 10:00 12/13/20 10:36 Sodium Chloride 0.9% 10 Ml Flush Syringe IV 10 ml BID DARIAN Administration Sodium Chloride 10 ml 12/08/20 05:31 Sodium Chloride 0.9% 10 Ml Flush Syringe IV PRN PRN LINE FLUSH Sodium Chloride 50 ml 12/10/20 21:00 12/12/20 22:58 Sodium Chloride 0.9% 50 Ml Ivpb IV 12/13/20 21:01 Not Given Q24HR@2100 DARIAN Sodium Chloride 50 ml 12/11/20 16:00 12/12/20 22:58 Sodium Chloride 0.9% 50 Ml Ivpb IV 12/14/20 21:01 50 ml Q24HR@2100 DARIAN Administration Zinc Sulfate 220 mg 12/09/20 10:00 12/13/20 10:35 Zinc Sulfate 220 Mg Cap PO 220 mg QDAY DARIAN Administration
--- NOTE | 2020-12-13 13:32 | Progress Note ---
Assessment and Plan Cultures: Blood culture no growth so far COVID-19 PCR: Positive A/P: 50-year-old female past medical history hypertension admitted with COVID-19 #Sepsis: With elevated lactate: Likely due to hypoxia from COVID-19. #Severe COVID-19 pneumonia: Patient presented with a week of symptoms, chest x-r ay with diffuse bilateral infiltrates. No evidence of pulmonary embolism on CT. Very elevated markers. #Acute hypoxemic respiratory failure: #Elevated liver enzymes: ?Secondary to COVID-19. Downtrending. Hepatitis panel: Nonreactive. RUQ ultrasound showed borderline biliary dilatation, no obst ruction or gallstones identified. Recs: -Dexamethasone daily for 10 days -Okay to continue remdesivir - liver enzymes downtrending <10X normal -With very high procalcitonin likely bacterial coinfection, as such not an Actemra candidate -monitor q48-72h inflammatory markers - ferritin, Ddimer, CRP, LDH, procalcitonin -completed abx -Anticoagulation per hospital protocol -guarded prognosis Harriett Enamorado MD, FACP [facility] ([facility] O: [phone] F: [phone] Subjective Date of service: 12/13/20 Principal diagnosis: Ac hypoxemic resp failure; COVID-19 infxn; Pneumonia; Sepsis Interval history: No fever. Remains on BiPAP. LFTs downtrending. CRP 3.5 Objective - Exam Narrative Exam: Physical Exam (reviewed in chart to minimize risk of transmission) Constitutional: deferred Head, Ears, Nose: deferred Eyes: deferred Neck: deferred Oral: deferred Cardiovascular: deferred Respiratory: deferred GI: deferred Musculoskeletal: deferred Skin: deferred Hem/Lymphatic: deferred Psych: deferred Neurological: deferred - Constitutional Vitals: Vital Signs Temp Pulse Resp BP Pulse Ox 97.4 F L 104 H 23 148/90 95 12/13/20 08:00 12/13/20 12:01 12/13/20 12:01 12/13/20 12:01 12/13/20 12:01 Temperature -Last 24 Hours Temperature 97.4 F - Labs CBC & Chem 7: 12/13/20 07:25 12/13/20 07:25 Labs: Abnormal lab results 12/13/20 12/13/20 Range/Units 07:25 07:25 WBC 11.2 H (4.5-11.0) K/mm3 Hgb 7.2 L (10.1-14.3) gm/dl Hct 24.3 L (30.3-42.9) % MCV 57 L (79-97) fl MCH 17 L (28-32) pg RDW 25.5 H (13.2-15.2) % Plt Count 634 H (140-440) K/mm3 Chloride 107.6 H (98-107) mmol/L BUN 25 H (7-17) mg/dL Creatinine 0.4 L (0.6-1.2) mg/dL Glucose 132 H (65-100) mg/dL Direct Bilirubin 0.3 H (0-0.2) mg/dL AST 72 H (5-40) units/L ALT 295 H (7-56) units/L Alkaline Phosphatase 466 H (35-129) units/L Total Protein 6.1 L (6.3-8.2) g/dL Albumin 2.7 L (3.9-5) g/dL
[2020-12-13] MEDS: LORazepam 2 MG/ML VIAL IV PRN ×2 (15:26→22:46)
[2020-12-13] MEDS: HYDROmorphone 1 MG/1 ML INJ IV PRN (16:50)
[2020-12-13] MEDS: REMDESIVIR 100 MG in SODIUM CHLORIDE 0.9% 250ML 250 ML IV SCH (21:45)
[2020-12-13] MEDS: SODIUM CHLORIDE 0.9% 50 ML IVPB IV SCH ×2 (21:46→21:47)
[2020-12-14] MEDS: LORazepam 2 MG/ML VIAL IV PRN ×4 (09:25→21:16)
[2020-12-14] MEDS: POTASSIUM CHLORIDE ER 20 MEQ TAB PO SCH (09:49)
[2020-12-14] MEDS: FAMOTIDINE 20 MG TAB PO SCH ×2 (09:49→21:15)
[2020-12-14] MEDS: ZINC SULFATE 220 MG CAP PO SCH (09:49)
[2020-12-14] MEDS: dexAMETHasone 4 MG/ML VIAL IV SCH (09:50)
[2020-12-14] MEDS: CHOLECALCIFEROL (VIT D3) 1000 UNIT (25 mcg) TAB PO SCH (09:50)
[2020-12-14] MEDS: ASCORBIC ACID 500 MG TAB PO SCH ×2 (09:50→21:15)
[2020-12-14] MEDS: ENOXAPARIN 40 MG/0.4 ML INJ SUB-Q SCH (09:50)
--- NOTE | 2020-12-14 12:56 | Progress Note ---
Assessment and Plan Cultures: Blood culture no growth so far COVID-19 PCR: Positive A/P: 50-year-old female past medical history hypertension admitted with COVID-19 #Sepsis: With elevated lactate: Likely due to hypoxia from COVID-19. #Severe COVID-19 pneumonia: Patient presented with a week of symptoms, chest x- ray with diffuse bilateral infiltrates. No evidence of pulmonary embolism on CT. Very elevated markers. #Acute hypoxemic respiratory failure: on BiPAP/HFNC. #Elevated liver enzymes: ?Secondary to COVID-19. Downtrending. Hepatitis panel: Nonreactive. RUQ ultrasound showed borderline biliary dilatation, no obs truction or gallstones identified. Recs: -continue steroids for at least 10 days -continue remdesivir - liver enzymes downtrending <10X normal -With very high procalcitonin, not an Actemra candidate -rechecking markers in AM -Anticoagulation per hospital protocol -guarded prognosis Harriett Enamorado MD, FACP [facility] ([facility] O: [phone] F: [phone] Subjective Date of service: 12/14/20 Principal diagnosis: Ac hypoxemic resp failure; COVID-19 infxn; Pneumonia; Sepsis Interval history: No fever. Remains on BiPAP. Objective - Exam Narrative Exam: Physical Exam (reviewed in chart to minimize risk of transmission) Constitutional: deferred Head, Ears, Nose: deferred Eyes: deferred Neck: deferred Oral: deferred Cardiovascular: deferred Respiratory: deferred GI: deferred Musculoskeletal: deferred Skin: deferred Hem/Lymphatic: deferred Psych: deferred Neurological: deferred - Constitutional Vitals: Vital Signs Temp Pulse Resp BP Pulse Ox 98.2 F 85 38 H 133/93 93 12/14/20 09:39 12/14/20 11:11 12/14/20 11:11 12/14/20 11:11 12/14/20 11:11 Temperature -Last 24 Hours Temperature 98.2 F Temperature 98.2 F Temperature 98.2 F - Labs CBC & Chem 7: 12/13/20 07:25 12/13/20 07:25
[2020-12-14 14:42] LABS: Bilirubin,Direct 0.4 mg/dL (0-0.2)
[2020-12-14] MEDS: oxyCODONE /ACETAMINOPHEN 5-325MG TAB PO PRN (15:15)
--- NOTE | 2020-12-14 18:53 | Progress Note ---
Assessment and Plan 50-year-old female with history of hypertension was brought to the emergency room because of shortness of breath, cough, fever, Covid positive. Patient was diagnosed with COVID-19 1 week ago. Since then patient complained of worsening shortness of breath. Patient states she has not seen a physician for this. Patient states she does not take any medicine. Patient states the fever is fluctuating. Patient states it responds well to Tylenol. Patient states her cough is dry. Patient states she has not been vaccinated for COVID-19. Patient complains of chills. Patient denies nausea vomiting. Patient denies diarrhea. Patient denies abdominal pain. Patient denies chest pain. patient's ox saturation was 82%. Patient was found to have acute respiratory failure. Patient WBC 17.0 and chest x-ray shows pneumonia secondary to Covid. Patient was put on BiPAP Patient awake. Patient is resting on O2 , 5 litres and O2 saturation running 99%. Patient afebrile and has mild leukocytosis. Blood pressure 158/92. Pulse 105. Chest xray done 12/07/20 reported here is patchy diffuse ground glass predominant airspace disease and also mild bibasilar consolidation/atelectasis. No pleural effusion. CT of chest done 12/08/20 reported Negative for PTE. Pulmonary findings as above suggesting an atypical etiology versus interstitial edema. Venous doppler studies of legs 12/08/20 No sonographic evidence for DVT in either lower extremity. Patient presently on Dexamethasone, REMDESIVIR, S/C Lovenox, Famotidine.Albuterol inhaler. I spent critical care time of 35 minutes by reviewing the chart, examine the patient, review chest xray, CTA of chest, venous doppler studies, talking to the nursing staff, respiratory therapy, and work out plan of treatment in this critically ill COVID patient. - Patient Problems (1) Acute respiratory failure Current Visit: Yes Status: Acute Plan to address problem: O2, 5 litres. Continue dexamethasone Continue S/C Lovenox. Continue Famotidine. Remdesivir Albuterol inhaler (2) COVID-19 Current Visit: Yes Status: Acute Plan to address problem: Patient is on Dexamethasone and REMDESIVIR (3) Hypertension Current Visit: Yes Status: Acute Plan to address problem: Management as per primary care. (4) Pneumonia Current Visit: Yes Status: Acute Qualifiers: Pneumonia type: due to unspecified organism Laterality: bilateral Lung location: unspecified part of lung Qualified Code(s): J18.9 - Pneumonia, unspecified organism Plan to address problem: Patient is on short course of ceftriaxone and zithromax. Antibiotics as per infectious diseases. Subjective Date of service: 12/14/20 Principal diagnosis: Ac hypoxemic resp failure; COVID-19 infxn; Pneumonia; Sepsis Interval history: 50-year-old female with history of hypertension was brought to the emergency room because of shortness of breath, cough, fever, Covid positive. Patient was diagnosed with COVID-19 1 week ago. Since then patient complained of worsening shortness of breath. Patient states she has not seen a physician for this. Patient states she does not take any medicine. Patient states the fever is fluc tuating. Patient states it responds well to Tylenol. Patient states her cough is dry. Patient states she has not been vaccinated for COVID-19. Patient complains of chills. Patient denies nausea vomiting. Patient denies diarrhea. Patient denies abdominal pain. Patient denies chest pain. patient's ox saturation was 82%. Patient was found to have acute respiratory failure. Patient WBC 17.0 and chest x-ray shows pneumonia secondary to Covid. Patient was put on BiPAP Patient awake. Patient is resting on O2 , 5 litres and O2 saturation running 99%. Patient afebrile and has mild leukocytosis. Blood pressure 158/92. Pulse 105 Chest xray done 12/07/20 reported here is patchy diffuse ground glass predominant airspace disease and also mild bibasilar consolidation/atelectasis. No pleural effusion. CT of chest done 12/08/20 reported Negative for PTE. Pulmonary findings as above suggesting an atypical etiology versus interstitial edema. Venous doppler studies of legs 12/08/20 No sonographic evidence for DVT in either lower extremity. Patient presently on Dexamethasone, REMDESIVIR, S/C Lovenox, Famotidine.Albuterol inhaler. Objective Vital Signs - 12hr 12/14/20 12/14/20 12/14/20 07:00 07:11 07:21 Temperature Pulse Rate 73 81 76 Pulse Rate [ From Monitor] Respiratory 34 H 30 H 16 Rate Blood Pressure 164/90 164/90 164/90 O2 Sat by Pulse 99 99 99 Oximetry 12/14/20 12/14/2012/14/21 07:31 07:41 07:51 Temperature Pulse Rate 77 74 76 Pulse Rate [ From Monitor] Respiratory 24 28 H 34 H Rate Blood Pressure 164/90 164/90 164/90 O2 Sat by Pulse 100 100 98 Oximetry 12/14/20 12/14/20 12/14/20 08:00 08:11 08:21 Temperature Pulse Rate 82 84 74 Pulse Rate [ 81 From Monitor] Respiratory 36 H 40 H 31 H Rate Blood Pressure 147/90 147/90 147/90 O2 Sat by Pulse 99 98 99 Oximetry 12/14/20 12/14/20 12/14/20 08:31 08:36 08:41 Temperature Pulse Rate 76 95 H Pulse Rate [ From Monitor] Respiratory 31 H 14 Rate Blood Pressure 147/90 147/90 O2 Sat by Pulse 100 99 93 Oximetry 12/14/20 12/14/20 12/14/20 08:51 09:00 09:11 Temperature Pulse Rate 94 H 102 H 97 H Pulse Rate [ From Monitor] Respiratory 27 H 37 H 39 H Rate Blood Pressure 147/90 129/101 129/101 O2 Sat by Pulse 93 91 94 Oximetry 12/14/20 12/14/20 12/14/20 09:21 09:31 09:39 Temperature 98.2 F Pulse Rate 98 H 103 H Pulse Rate [ From Monitor] Respiratory 43 H 30 H Rate Blood Pressure 129/101 129/101 O2 Sat by Pulse 94 94 Oximetry 12/14/20 12/14/20 12/14/20 09:41 09:51 10:01 Temperature Pulse Rate 97 H 92 H 107 H Pulse Rate [ From Monitor] Respiratory 37 H 39 H 30 H Rate Blood Pressure 129/101 129/101 150/81 O2 Sat by Pulse 95 96 88 Oximetry 12/14/20 12/14/20 12/14/20 10:11 10:21 10:31 Temperature Pulse Rate 92 H 86 91 H Pulse Rate [ From Monitor] Respiratory 31 H 36 H 41 H Rate Blood Pressure 150/81 150/81 150/81 O2 Sat by Pulse 91 97 95 Oximetry 12/14/20 12/14/20 12/14/20 10:41 10:51 11:00 Temperature Pulse Rate 100 H 85 84 Pulse Rate [ From Monitor] Respiratory 35 H 26 H 23 Rate Blood Pressure 150/81 150/81 133/93 O2 Sat by Pulse 91 98 97 Oximetry 12/14/20 12/14/20 12/14/20 11:11 11:21 11:31 Temperature Pulse Rate 85 84 100 H Pulse Rate [ From Monitor] Respiratory 38 H 34 H 39 H Rate Blood Pressure 133/93 133/93 133/93 O2 Sat by Pulse 93 93 83 L Oximetry 12/14/20 12/14/20 12/14/20 11:41 11:51 12:00 Temperature Pulse Rate 92 H 100 H 87 Pulse Rate [ 87 From Monitor] Respiratory 36 H 38 H Rate Blood Pressure 133/93 133/93 154/95 O2 Sat by Pulse 95 85 99 Oximetry 12/14/20 12/14/20 12/14/20 12:11 12:21 12:31 Temperature Pulse Rate 89 88 85 Pulse Rate [ From Monitor] Respiratory Rate Blood Pressure 154/95 154/95 154/95 O2 Sat by Pulse 86 91 91 Oximetry 12/14/20 12/14/20 12/14/20 12:41 12:51 13:00 Temperature 98.1 F Pulse Rate 94 H 90 88 Pulse Rate [ From Monitor] Respiratory Rate Blood Pressure 154/95 154/95 154/95 O2 Sat by Pulse 91 92 93 Oximetry 12/14/20 12/14/20 12/14/20 13:11 13:21 13:31 Temperature Pulse Rate 88 94 H 85 Pulse Rate [ From Monitor] Respiratory Rate Blood Pressure 152/94 152/94 152/94 O2 Sat by Pulse 95 95 96 Oximetry 12/14/20 12/14/20 12/14/20 13:41 13:51 14:00 Temperature Pulse Rate 92 H 98 H 94 H Pulse Rate [ From Monitor] Respiratory Rate Blood Pressure 152/94 152/94 144/90 O2 Sat by Pulse 94 94 94 Oximetry 12/14/20 12/14/20 12/14/20 14:11 14:21 14:31 Temperature Pulse Rate 95 H 93 H 94 H Pulse Rate [ From Monitor] Respiratory Rate Blood Pressure 144/90 144/90 144/90 O2 Sat by Pulse 94 94 93 Oximetry 12/14/20 12/14/20 12/14/20 14:41 14:51 15:00 Temperature Pulse Rate 94 H 94 H 94 H Pulse Rate [ From Monitor] Respiratory Rate Blood Pressure 144/90 144/90 142/86 O2 Sat by Pulse 95 95 90 Oximetry 12/14/20 12/14/20 12/14/20 15:11 15:15 15:21 Temperature Pulse Rate 101 H 90 Pulse Rate [ From Monitor] Respiratory 26 H Rate Blood Pressure 142/86 142/86 O2 Sat by Pulse 89 98 Oximetry 12/14/20 12/14/20 12/14/20 15:31 15:41 15:51 Temperature Pulse Rate 90 97 H 90 Pulse Rate [ From Monitor] Respiratory Rate Blood Pressure 142/86 142/86 142/86 O2 Sat by Pulse 99 97 100 Oximetry 12/14/20 12/14/20 12/14/20 16:00 16:11 16:21 Temperature Pulse Rate 95 H 94 H 93 H Pulse Rate [ 89 From Monitor] Respiratory 28 H Rate Blood Pressure 147/92 142/86 142/86 O2 Sat by Pulse 100 100 100 Oximetry 12/14/20 12/14/20 12/14/20 16:31 16:41 16:51 Temperature Pulse Rate 90 86 87 Pulse Rate [ From Monitor] Respiratory Rate Blood Pressure 142/86 142/86 142/86 O2 Sat by Pulse 100 100 100 Oximetry 12/14/20 12/14/20 12/14/20 17:00 17:11 17:21 Temperature Pulse Rate 88 92 H 94 H Pulse Rate [ From Monitor] Respiratory Rate Blood Pressure 157/104 157/104 157/104 O2 Sat by Pulse 100 98 99 Oximetry 12/14/20 12/14/20 12/14/20 17:31 17:41 17:51 Temperature Pulse Rate 95 H 101 H 103 H Pulse Rate [ From Monitor] Respiratory Rate Blood Pressure 157/104 157/104 157/104 O2 Sat by Pulse 100 98 98 Oximetry 12/14/20 12/14/20 12/14/20 18:01 18:11 18:21 Temperature Pulse Rate 105 H 98 H 106 H Pulse Rate [ From Monitor] Respiratory Rate Blood Pressure 130/79 130/79 130/79 O2 Sat by Pulse 99 98 97 Oximetry 12/14/20 12/14/20 18:31 18:41 Temperature Pulse Rate 99 H 100 H Pulse Rate [ From Monitor] Respiratory Rate Blood Pressure 130/79 130/79 O2 Sat by Pulse 100 100 Oximetry Constitutional: no acute distress, alert, other (middle aged female with increased respiratory effort at rest) Eyes: non-icteric ENT: oropharynx moist Neck: supple, no lymphadenopathy, no JVD Effort: mildly labored Ascultation: Bilateral: rhonchi Percussion: Bilateral: not dull Cardiovascular: regular rate and rhythm Gastrointestinal: normoactive bowel sounds, soft, non-tender, non-distended Integumentary: normal Extremities: no cyanosis, no edema, pulses normal, no ischemia or petechiae Neurologic: normal mental status, non-focal exam, pupils equal and round, CN II- XII normal, motor strength normal and Psychiatric: mood appropriate, affect normal CBC and BMP: 12/13/20 07:25 12/13/20 07:25 ABG, PT/INR, D-dimer: ABG ABG pH 7.449 (7.320-7.450) 12/10/20 08:45 POC ABG pCO2 36.5 mmHg (32.0-48.0) 12/10/20 08:45 POC ABG pO2 64.5 mmHg (83-108) L 12/10/20 08:45 POC ABG HCO3 24.7 12/10/20 08:45 ABG O2 Saturation 91.0 (0-100) 12/10/20 08:45 PT/INR, D-dimer PT 16.4 Sec. (12.2-14.9) H 12/08/20 00:15 INR 1.27 (0.87-1.13) H 12/08/20 00:15 D-Dimer 806.70 ng/mlDDU (0-234) H 12/14/20 13:54 Abnormal lab findings: Abnormal Labs 12/08/20 12/08/20 12/08/20 00:15 00:15 00:15 WBC 17.0 H RBC 5.40 H Hgb 8.3 L Hct 29.7 L MCV 55 L MCH 16 L MCHC 28 L RDW 25.0 H Plt Count 464 H [place] # (Auto) Seg Neutrophils % Seg Neuts % (Manual) 92.0 H Lymphocytes % (Manual) 1.0 L Nucleated RBC % Seg Neutrophils # Seg Neutrophils # Man 15.6 H Lymphocytes # (Manual) 0.2 L Monocytes # (Manual) PT 16.4 H INR 1.27 H D-Dimer 1129.87 H POC ABG pO2 ABG Hemoglobin ABG Oxyhemoglobin ABG Potassium ABG Chloride ABG Glucose Potassium 3.1 L Chloride BUN Creatinine Glucose 128 H Lactic Acid Calcium 8.3 L Ferritin Total Bilirubin 1.90 H Direct Bilirubin AST 309 H ALT 1384 H Alkaline Phosphatase 440 H Lactate Dehydrogenase C-Reactive Protein Total Protein Albumin 3.2 L Arterial Blood Glucose Coronavirus (PCR) 12/08/20 12/08/20 12/08/20 00:15 00:15 00:15 WBC RBC Hgb Hct MCV MCH MCHC RDW Plt Count [place] # (Auto) Seg Neutrophils % Seg Neuts % (Manual) Lymphocytes % (Manual) Nucleated RBC % Seg Neutrophils # Seg Neutrophils # Man Lymphocytes # (Manual) Monocytes # (Manual) PT INR D-Dimer POC ABG pO2 ABG Hemoglobin ABG Oxyhemoglobin ABG Potassium ABG Chloride ABG Glucose Potassium Chloride BUN Creatinine Glucose Lactic Acid 2.30 H* Calcium Ferritin 289.8 H Total Bilirubin Direct Bilirubin AST ALT Alkaline Phosphatase Lactate Dehydrogenase 608 H C-Reactive Protein 20.70 H Total Protein Albumin Arterial Blood Glucose Coronavirus (PCR) 12/08/20 12/08/20 12/08/20 02:16 09:49 10:30 WBC RBC Hgb Hct MCV MCH MCHC RDW Plt Count [place] # (Auto) Seg Neutrophils % Seg Neuts % (Manual) Lymphocytes % (Manual) Nucleated RBC % Seg Neutrophils # Seg Neutrophils # Man Lymphocytes # (Manual) Monocytes # (Manual) PT INR D-Dimer POC ABG pO2 ABG Hemoglobin ABG Oxyhemoglobin ABG Potassium ABG Chloride ABG Glucose Potassium Chloride BUN Creatinine Glucose Lactic Acid 2.50 H* 2.40 H* Calcium Ferritin Total Bilirubin Direct Bilirubin AST ALT Alkaline Phosphatase Lactate Dehydrogenase C-Reactive Protein Total Protein Albumin Arterial Blood Glucose Coronavirus (PCR) Positive A 12/09/20 12/09/20 12/09/20 04:33 04:33 09:13 WBC 21.0 H RBC 5.12 H Hgb 8.2 L Hct 29.1 L MCV 57 L MCH 16 L MCHC 28 L RDW 24.6 H Plt Count 509 H [place] # (Auto) 1.3 H Seg Neutrophils % 84.3 H Seg Neuts % (Manual) 93.0 H Lymphocytes % (Manual) 2.0 L Nucleated RBC % 2.0 H Seg Neutrophils # 17.8 H Seg Neutrophils # Man 19.5 H Lymphocytes # (Manual) 0.4 L Monocytes # (Manual) PT INR D-Dimer POC ABG pO2 ABG Hemoglobin ABG Oxyhemoglobin ABG Potassium ABG Chloride ABG Glucose Potassium 3.5 L Chloride BUN 30 H 29 H Creatinine Glucose 190 H 129 H Lactic Acid Calcium Ferritin Total Bilirubin Direct Bilirubin AST 276 H ALT 867 H Alkaline Phosphatase 685 H Lactate Dehydrogenase C-Reactive Protein Total Protein Albumin 3.1 L Arterial Blood Glucose Coronavirus (PCR) 12/09/20 12/10/20 12/10/20 19:16 05:04 05:04 WBC RBC Hgb Hct MCV MCH MCHC RDW Plt Count [place] # (Auto) Seg Neutrophils % Seg Neuts % (Manual) Lymphocytes % (Manual) Nucleated RBC % Seg Neutrophils # Seg Neutrophils # Man Lymphocytes # (Manual) Monocytes # (Manual) PT INR D-Dimer POC ABG pO2 ABG Hemoglobin ABG Oxyhemoglobin ABG Potassium ABG Chloride ABG Glucose Potassium 3.4 L Chloride BUN 25 H Creatinine Glucose 184 H Lactic Acid 2.80 H* 3.30 H* Calcium 7.9 L Ferritin Total Bilirubin Direct Bilirubin AST 277 H ALT 722 H Alkaline Phosphatase 773 H Lactate Dehydrogenase C-Reactive Protein Total Protein Albumin 2.9 L Arterial Blood Glucose Coronavirus (PCR) 12/10/20 12/10/20 12/10/20 08:11 08:45 11:15 WBC RBC Hgb Hct MCV MCH MCHC RDW Plt Count [place] # (Auto) Seg Neutrophils % Seg Neuts % (Manual) Lymphocytes % (Manual) Nucleated RBC % Seg Neutrophils # Seg Neutrophils # Man Lymphocytes # (Manual) Monocytes # (Manual) PT INR D-Dimer POC ABG pO2 64.5 L ABG Hemoglobin 7.6 L ABG Oxyhemoglobin 90.2 L ABG Potassium 3.3 L ABG Chloride 108.0 H ABG Glucose 126 H Potassium Chloride BUN Creatinine Glucose Lactic Acid 2.10 H* 2.40 H* Calcium Ferritin Total Bilirubin Direct Bilirubin AST ALT Alkaline Phosphatase Lactate Dehydrogenase C-Reactive Protein Total Protein Albumin Arterial Blood Glucose 126 H Coronavirus (PCR) 12/10/20 12/10/20 12/11/20 13:36 19:13 00:49 WBC RBC Hgb Hct MCV MCH MCHC RDW Plt Count [place] # (Auto) Seg Neutrophils % Seg Neuts % (Manual) Lymphocytes % (Manual) Nucleated RBC % Seg Neutrophils # Seg Neutrophils # Man Lymphocytes # (Manual) Monocytes # (Manual) PT INR D-Dimer POC ABG pO2 ABG Hemoglobin ABG Oxyhemoglobin ABG Potassium ABG Chloride ABG Glucose Potassium 3.4 L Chloride BUN Creatinine Glucose Lactic Acid 3.40 H* 2.30 H* Calcium Ferritin Total Bilirubin Direct Bilirubin AST ALT Alkaline Phosphatase Lactate Dehydrogenase C-Reactive Protein Total Protein Albumin Arterial Blood Glucose Coronavirus (PCR) 12/11/20 12/11/20 12/11/20 05:34 05:34 10:06 WBC RBC Hgb Hct MCV MCH MCHC RDW Plt Count [place] # (Auto) Seg Neutrophils % Seg Neuts % (Manual) Lymphocytes % (Manual) Nucleated RBC % Seg Neutrophils # Seg Neutrophils # Man Lymphocytes # (Manual) Monocytes # (Manual) PT INR D-Dimer POC ABG pO2 ABG Hemoglobin ABG Oxyhemoglobin ABG Potassium ABG Chloride ABG Glucose Potassium Chloride 108.1 H BUN Creatinine 0.4 L Glucose 160 H Lactic Acid 2.30 H* 2.90 H* Calcium 8.3 L Ferritin Total Bilirubin Direct Bilirubin AST 249 H ALT 589 H Alkaline Phosphatase 701 H Lactate Dehydrogenase C-Reactive Protein Total Protein 5.9 L Albumin 3.0 L Arterial Blood Glucose Coronavirus (PCR) 12/11/20 12/11/20 12/11/20 12:38 12:38 12:38 WBC RBC Hgb Hct MCV MCH MCHC RDW Plt Count [place] # (Auto) Seg Neutrophils % Seg Neuts % (Manual) Lymphocytes % (Manual) Nucleated RBC % Seg Neutrophils # Seg Neutrophils # Man Lymphocytes # (Manual) Monocytes # (Manual) PT INR D-Dimer 725.41 H POC ABG pO2 ABG Hemoglobin ABG Oxyhemoglobin ABG Potassium ABG Chloride ABG Glucose Potassium Chloride BUN Creatinine Glucose Lactic Acid 2.50 H* Calcium Ferritin Total Bilirubin Direct Bilirubin AST ALT Alkaline Phosphatase Lactate Dehydrogenase 447 H C-Reactive Protein 2.90 H Total Protein Albumin Arterial Blood Glucose Coronavirus (PCR) 12/12/20 12/12/20 12/12/20 05:01 05:01 05:01 WBC 15.3 H RBC Hgb 8.1 L Hct 28.4 L MCV 57 L MCH 16 L MCHC 29 L RDW 25.0 H Plt Count 809 H [place] # (Auto) Seg Neutrophils % Seg Neuts % (Manual) 83.0 H Lymphocytes % (Manual) 10.0 L Nucleated RBC % 2.0 H Seg Neutrophils # Seg Neutrophils # Man 12.7 H Lymphocytes # (Manual) Monocytes # (Manual) 1.1 H PT INR D-Dimer 752.84 H POC ABG pO2 ABG Hemoglobin ABG Oxyhemoglobin ABG Potassium ABG Chloride ABG Glucose Potassium Chloride BUN 20 H Creatinine 0.4 L Glucose 120 H Lactic Acid Calcium Ferritin Total Bilirubin Direct Bilirubin AST 121 H ALT 469 H Alkaline Phosphatase 633 H Lactate Dehydrogenase 511 H C-Reactive Protein 3.50 H Total Protein Albumin 3.1 L Arterial Blood Glucose Coronavirus (PCR) 12/13/20 12/13/20 12/14/20 07:25 07:25 13:54 WBC 11.2 H RBC Hgb 7.2 L Hct 24.3 L MCV 57 L MCH 17 L MCHC RDW 25.5 H Plt Count 634 H [place] # (Auto) Seg Neutrophils % Seg Neuts % (Manual) Lymphocytes % (Manual) Nucleated RBC % Seg Neutrophils # Seg Neutrophils # Man Lymphocytes # (Manual) Monocytes # (Manual) PT INR D-Dimer POC ABG pO2 ABG Hemoglobin ABG Oxyhemoglobin ABG Potassium ABG Chloride ABG Glucose Potassium Chloride 107.6 H BUN 25 H Creatinine 0.4 L Glucose 132 H Lactic Acid Calcium Ferritin Total Bilirubin Direct Bilirubin 0.3 H 0.4 H AST 72 H 115 H ALT 295 H 318 H Alkaline Phosphatase 466 H 617 H Lactate Dehydrogenase C-Reactive Protein Total Protein 6.1 L Albumin 2.7 L 3.0 L Arterial Blood Glucose Coronavirus (PCR) 12/14/20 12/14/20 13:54 13:54 WBC RBC Hgb Hct MCV MCH MCHC RDW Plt Count [place] # (Auto) Seg Neutrophils % Seg Neuts % (Manual) Lymphocytes % (Manual) Nucleated RBC % Seg Neutrophils # Seg Neutrophils # Man Lymphocytes # (Manual) Monocytes # (Manual) PT INR D-Dimer 806.70 H POC ABG pO2 ABG Hemoglobin ABG Oxyhemoglobin ABG Potassium ABG Chloride ABG Glucose Potassium Chloride BUN Creatinine Glucose Lactic Acid Calcium Ferritin Total Bilirubin Direct Bilirubin AST ALT Alkaline Phosphatase Lactate Dehydrogenase C-Reactive Protein 1.70 H Total Protein Albumin Arterial Blood Glucose Coronavirus (PCR) Allied health notes reviewed: nursing
--- NOTE | 2020-12-14 18:56 | Progress Note ---
Assessment and Plan Assessment and plan: 50-year-old female with history of hypertension was brought to the emergency room because of shortness of breath, cough, fever, Covid positive. Patient was diagnosed with COVID-19 1 week ago. Since then patient complained of worsening shortness of breath. Patient states she has not seen a physician for this. Patient states she does not take any medicine. Patient states the fever is fluctuating. Patient states it responds well to Tylenol. Patient states her cough is dry. Patient states she has not been vaccinated for COVID-19. Patient complains of chills. Patient denies nausea vomiting. Patient denies diarrhea. Patient denies abdominal pain. Patient denies chest pain. patient's ox saturation was 82%. Patient was found to have acute respiratory failure. Patient WBC 17.0 and chest x-ray shows pneumonia secondary to Covid. Patient was put on BiPAP (1) Acute hypoxic respiratory failure 2/2 Covid 19 PNA pulmonary following and note reviewed Patient is on 35% Fio2 with O2 sat 93-94% (2) COVID-19 Current Visit: Yes Status: Acute Plan to address problem: ID note reviewed inflammatory markers reviewed cont. Dexamethasone x 10 days Cleared for starting remdesivir as LFTs < 10 times normal monitor markers 3. Severe sepsis procalcitonin results reviewed ID note reviewed cont. ceftriaxone and azithromycin Leucocytosis: 2/2 sepsis monitor CBC (4) Hypertension Current Visit: Yes Status: Acute Plan to address problem: Hydralazine 10 mg IV every 6 hours as needed she has no hx of HTN 5) Transaminitis: results reviewed cont. to monitor (6) anemia (7) DVT prophylaxis Current Visit: Yes Status: Acute Plan to address problem: will stop heparin and start on lovenox. Pepcid 20 mg p.o. twice daily for GI prophylaxis. Patient is a full code. 12/09/2020 -Patient was on BiPAP with FiO2 of 100%, patient desaturated when she was off BiPAP momentarily. I put her on D5 half-normal saline for maintenance. Titrate oxygen as tolerated. -Pulmonary consulted, ID consulted. -Patient has elevated ALT and AST and is not a candidate for remdesivir. -Patient is on IV antibiotics and procalcitonin level is elevated, ID recommends to continue with IV antibiotics. ID said patient is not a candidate for Actemra because of the infection with elevated procalcitonin level. 12/10; patient is on BiPAP, on Decadron. Remdesivir discontinued due to elevated liver enzymes. Patient not a candidate for Actemra because patient has elevated procalcitonin level. Continue with IV antibiotics. Prognosis is guarded. 12/11patient is A&O,A&O, c/o weakness and feels tired. C/O shortness of breath. requesting stool sofner. She denies f/c/CP/N/abd. pain 12/12: Continue supportive care. Wean oxygen as tolerated. Will obtain pulmonary consult will evaluate for possible Lasix therapy. Noted anemia with hemoglobin of 8.1 will monitor this closely. D-dimer is elevated so is AST and ALT and alk phos. This may preclude use of medications such as remdesivir which has been discontinued in relation to this. Patient remains critically ill. 12/13: Patient showing some improve, still with BiPAP requirements, continue supportive care, continued sterods, Remdesivr per ID, monitor renal function closely and LFT. wean oxygen as tolerated. Prognosis guarded 12/14: Patient seen and examined, she is showing good improvement, down to 10 liters except that she gets anxious. I spoke extensively with the family and updated them on her clinical condition The high probability of a clinically significant, sudden or life threatening deterioration of the [PULMONARY] system(s) required my full and direct attention, intervention and personal management. The aggregate critical care time was [35] minutes. This time is in addition to time spent performing reported procedures but includes the following: [X] Data Review and interpretation [X] Patient assessment and monitoring of vital signs [X] Documentation [X] Medication orders and management History Interval history: Patient seen and examined showing some improvement Hospitalist Physical - Physical exam Narrative exam: VITAL SIGNS: Reviewed. GENERAL: The patient appears normally developed, otherwise short of breath, vital signs as documented. HEAD: No signs of head trauma. EYES: Pupils are equal. Extraocular motions intact. EARS: Hearing grossly intact. MOUTH: Oropharynx is normal. NECK: No adenopathy, no JVD. CHEST: Chest with diminshed breath sounds bilaterally. No wheezes, rales, or rhonchi. CARDIAC: Regular rate and rhythm. S1 and S2, without murmurs, gallops, or rubs. VASCULAR: No Edema. Peripheral pulses normal and equal in all extremities. ABDOMEN: Soft, non tender and non distended. No rebound or guarding, and no masses palpated. Bowel Sounds normal. MUSCULOSKELETAL: Good range of motion of all major joints. Extremities without clubbing, cyanosis or edema. NEUROLOGIC EXAM: Alert and oriented x 3 No focal sensory or strength deficits. Speech normal. Follows commands. PSYCHIATRIC: Mood normal. SKIN: detail exam as documented in skin assessment - Constitutional Vitals: Temp Pulse Resp BP Pulse Ox 98.1 F 100 H 26 H 130/79 100 12/14/20 13:00 12/14/20 18:41 12/14/20 15:15 12/14/20 18:41 12/14/20 18:41 General appearance: Present: no acute distress Results - Labs CBC & Chem 7: 12/13/20 07:25 12/13/20 07:25 Labs: Laboratory Last Values WBC 11.2 K/mm3 (4.5-11.0) H 12/13/20 07:25 RBC 4.26 M/mm3 (3.65-5.03) 12/13/20 07:25 Hgb 7.2 gm/dl (10.1-14.3) L 12/13/20 07:25 Hct 24.3 % (30.3-42.9) L 12/13/20 07:25 MCV 57 fl (79-97) L 12/13/20 07:25 MCH 17 pg (28-32) L 12/13/20 07:25 MCHC 30 % (30-34) 12/13/20 07:25 RDW 25.5 % (13.2-15.2) H 12/13/20 07:25 Plt Count 634 K/mm3 (140-440) H 12/13/20 07:25 [place] % (Auto) 6.0 % (0.0-7.3) 12/09/20 04:33 [place] # (Auto) 1.3 K/mm3 (0.0-0.8) H 12/09/20 04:33 Add Manual Diff Complete 12/12/20 05:01 Total Counted 100 12/12/20 05:01 Seg Neutrophils % 84.3 % (40.0-70.0) H 12/09/20 04:33 Seg Neuts % (Manual) 83.0 % (40.0-70.0) H 12/12/20 05:01 Band Neutrophils % 3.0 % 12/09/20 04:33 Lymphocytes % (Manual) 10.0 % (13.4-35.0) L 12/12/20 05:01 Monocytes % (Manual) 7.0 % (0.0-7.3) 12/12/20 05:01 Metamyelocytes % 1.0 % 12/08/20 00:15 Nucleated RBC % 2.0 % (0.0-0.9) H 12/12/20 05:01 Seg Neutrophils # 17.8 K/mm3 (1.8-7.7) H 12/09/20 04:33 Seg Neutrophils # Man 12.7 K/mm3 (1.8-7.7) H 12/12/20 05:01 Band Neutrophils # 0.0 K/mm3 12/12/20 05:01 Lymphocytes # (Manual) 1.5 K/mm3 (1.2-5.4) 12/12/20 05:01 Abs React Lymphs (Man) 0.0 K/mm3 12/12/20 05:01 Monocytes # (Manual) 1.1 K/mm3 (0.0-0.8) H 12/12/20 05:01 Eosinophils # (Manual) 0.0 K/mm3 (0.0-0.4) 12/12/20 05:01 Basophils # (Manual) 0.0 K/mm3 (0.0-0.1) 12/12/20 05:01 Metamyelocytes # 0.0 K/mm3 12/12/20 05:01 Myelocytes # 0.0 K/mm3 12/12/20 05:01 Promyelocytes # 0.0 K/mm3 12/12/20 05:01 Blast Cells # 0.0 K/mm3 12/12/20 05:01 WBC Morphology Not Reportable 12/12/20 05:01 Hypersegmented Neuts Not Reportable 12/12/20 05:01 Hyposegmented Neuts Not Reportable 12/12/20 05:01 Hypogranular Neuts Not Reportable 12/12/20 05:01 Smudge Cells Not Reportable 12/12/20 05:01 Toxic Granulation Not Reportable 12/12/20 05:01 Toxic Vacuolation Not Reportable 12/12/20 05:01 Dohle Bodies Not Reportable 12/12/20 05:01 Pelger-Huet Anomaly Not Reportable 12/12/20 05:01 Lauryn Rods Not Reportable 12/12/20 05:01 Platelet Estimate Consistent w auto 12/12/20 05:01 Clumped Platelets Not Reportable 12/12/20 05:01 Plt Clumps, EDTA Not Reportable 12/12/20 05:01 Large Platelets Not Reportable 12/12/20 05:01 Giant Platelets Not Reportable 12/12/20 05:01 Platelet Satelliting Not Reportable 12/12/20 05:01 Plt Morphology Comment Not Reportable 12/12/20 05:01 RBC Morphology Not Reportable 12/12/20 05:01 Dimorphic RBCs Not Reportable 12/12/20 05:01 Polychromasia Not Reportable 12/12/20 05:01 Hypochromasia 3+ 12/12/20 05:01 Poikilocytosis 1+ 12/12/20 05:01 Anisocytosis 2+ 12/12/20 05:01 Microcytosis 2+ 12/12/20 05:01 Macrocytosis Not Reportable 12/12/20 05:01 Spherocytes Not Reportable 12/12/20 05:01 Pappenheimer Bodies Not Reportable 12/12/20 05:01 Sickle Cells Not Reportable 12/12/20 05:01 Target Cells Not Reportable 12/12/20 05:01 Tear Drop Cells Few 12/12/20 05:01 Ovalocytes Few 12/12/20 05:01 Helmet Cells Not Reportable 12/12/20 05:01 Torres-Sidney Bodies Not Reportable 12/12/20 05:01 Clare Rings Not Reportable 12/12/20 05:01 Jens Cells Not Reportable 12/12/20 05:01 Bite Cells Not Reportable 12/12/20 05:01 Crenated Cell Not Reportable 12/12/20 05:01 Elliptocytes Few 12/12/20 05:01 Acanthocytes (Spur) Not Reportable 12/12/20 05:01 Rouleaux Not Reportable 12/12/20 05:01 Hemoglobin C Crystals Not Reportable 12/12/20 05:01 Schistocytes Not Reportable 12/12/20 05:01 Malaria parasites Not Reportable 12/12/20 05:01 Brant Bodies Not Reportable 12/12/20 05:01 Hem Pathologist Commnt No 12/12/20 05:01 PT 16.4 Sec. (12.2-14.9) H 12/08/20 00:15 INR 1.27 (0.87-1.13) H 12/08/20 00:15 APTT 29.6 Sec. (24.2-36.6) 12/08/20 00:15 D-Dimer 806.70 ng/mlDDU (0-234) H 12/14/20 13:54 ABG pH 7.449 (7.320-7.450) 12/10/20 08:45 POC ABG pCO2 36.5 mmHg (32.0-48.0) 12/10/20 08:45 POC ABG pO2 64.5 mmHg (83-108) L 12/10/20 08:45 POC ABG HCO3 24.7 12/10/20 08:45 ABG O2 Saturation 91.0 (0-100) 12/10/20 08:45 POC ABG Base Excess 0.8 12/10/20 08:45 ABG Hemoglobin 7.6 (12.0-17.5) L 12/10/20 08:45 ABG Oxyhemoglobin 90.2 (94-98) L 12/10/20 08:45 ABG Methemoglobin 0.1 (0.0-1.5) 12/10/20 08:45 ABG Sodium 139.9 mmol/L (136.0-145.0) 12/10/20 08:45 ABG Potassium 3.3 mmol/L (3.40-4.50) L 12/10/20 08:45 ABG Chloride 108.0 mmol/L (98-107) H 12/10/20 08:45 ABG Glucose 126 mg/dL (65-95) H 12/10/20 08:45 Carboxyhemoglobin 0.8 (0.5-1.5) 12/10/20 08:45 FiO2 % 35.0 12/10/20 08:45 Sodium 141 mmol/L (137-145) 12/13/20 07:25 Potassium 4.5 mmol/L (3.6-5.0) 12/13/20 07:25 Chloride 107.6 mmol/L (98-107) H 12/13/20 07:25 Carbon Dioxide 23 mmol/L (22-30) 12/13/20 07:25 Anion Gap 15 mmol/L 12/13/20 07:25 BUN 25 mg/dL (7-17) H 12/13/20 07:25 Creatinine 0.4 mg/dL (0.6-1.2) L 12/13/20 07:25 Estimated GFR > 60 ml/min 12/13/20 07:25 BUN/Creatinine Ratio 63 % 12/13/20 07:25 Glucose 132 mg/dL (65-100) H 12/13/20 07:25 Lactic Acid 2.50 mmol/L (0.7-2.0) H* 12/11/20 12:38 Calcium 8.4 mg/dL (8.4-10.2) 12/13/20 07:25 Ferritin 109.4 ng/mL (10.0-200.0) 12/14/20 13:54 Total Bilirubin 0.70 mg/dL (0.1-1.2) 12/14/20 13:54 Direct Bilirubin 0.4 mg/dL (0-0.2) H 12/14/20 13:54 Indirect Bilirubin 0.3 mg/dL 12/14/20 13:54 AST 115 units/L (5-40) H 12/14/20 13:54 ALT 318 units/L (7-56) H 12/14/20 13:54 Alkaline Phosphatase 617 units/L (35-129) H 12/14/20 13:54 Lactate Dehydrogenase 511 units/L (91-180) H 12/12/20 05:01 C-Reactive Protein 1.70 mg/dL (0.00-1.30) H 12/14/20 13:54 Total Protein 6.9 g/dL (6.3-8.2) 12/14/20 13:54 Albumin 3.0 g/dL (3.9-5) L 12/14/20 13:54 Albumin/Globulin Ratio 0.8 % 12/14/20 13:54 Procalcitonin 4.72 ng/mL (<0.15) 12/11/20 12:38 Arterial Blood Glucose 126 mg/dL (65-95) H 12/10/20 08:45 Coronavirus (PCR) Positive (Negative) A 12/08/20 10:30 Hepatitis A IgM Ab Non-reactive (NonReactive) 12/13/20 07:25 Hep Bs Antigen Nonreactive (Negative) 12/13/20 07:25 Hep B Core IgM Ab Non-reactive (NonReactive) 12/13/20 07:25 Hepatitis C Antibody Non-reactive (NonReactive) 12/13/20 07:25 Kilpatrick/IV: Voiding Method Indwelling Catheter Active Medications - Current Medications Current Medications: Generic Name Dose Route Start Last Admin Trade Name Freq PRN Reason Stop Dose Admin Acetaminophen 650 mg 12/08/20 05:31 Acetaminophen 325 Mg Tab PO Q4H PRN Pain MILD(1-3)/Fever >100.5/[place] Albuterol 2.5 mg 12/08/20 05:31 Albuterol 2.5 Mg/3 Ml Nebu IH Q4HRT PRN Shortness Of Breath Ascorbic Acid 500 mg 12/09/20 10:00 12/14/20 09:50 Ascorbic Acid 500 Mg Tab PO 500 mg BID DARIAN Administration Cholecalciferol 1,000 unit 12/09/20 10:00 12/14/20 09:50 Cholecalciferol (Vit D3) 1000 Unit (25 Mcg) Tab PO 1,000 unit QDAY DARIAN Administration Dexamethasone 6 mg 12/08/20 10:00 12/14/20 09:50 Dexamethasone 4 Mg/Ml Vial IV 12/17/20 10:01 6 mg DAILY DARIAN Administration Enoxaparin Sodium 40 mg 12/14/20 10:00 12/14/20 09:50 Enoxaparin 40 Mg/0.4 Ml Inj SUB-Q 40 mg QDAY@1000 DARIAN Administration Protocol Famotidine 20 mg 12/08/20 10:00 12/14/20 09:49 Famotidine 20 Mg Tab PO 20 mg BID DARIAN Administration Guaifenesin 10 ml 12/14/20 15:00 Guaifenesin Dm 200/20 Mg Oral Liqd 10 Ml PO Q4H PRN Cough Hydromorphone HCl 0.5 mg 12/08/20 05:31 12/13/20 16:50 Hydromorphone 1 Mg/1 Ml Inj IV 0.5 mg Q3H PRN Administration Pain , Severe (7-10) REMDESIVIR 100 mg/ Sodium 250 mls @ 500 mls/hr 12/12/20 21:00 12/13/20 21:45 Chloride IV 12/15/20 21:29 500 mls/hr Q24HR@2100 DARIAN Administration Lorazepam 1 mg 12/09/20 13:02 12/14/20 15:43 Lorazepam 2 Mg/Ml Vial IV 1 mg Q4H PRN Administration Anxiety Ondansetron HCl 4 mg 12/08/20 05:31 Ondansetron 4 Mg/2 Ml Inj IV Q8H PRN Nausea And Vomiting Oxycodone/Acetaminophen 1 tab 12/08/20 05:31 12/14/20 15:15 Oxycodone /Acetaminophen 5-325mg Tab PO 1 tab Q6H PRN Administration Pain, Moderate (4-6) Polyethylene Glycol 17 gm 12/11/20 15:53 Polyethylene Glycol 3350 17 Gm Powder PO QDAY PRN Constipation Potassium Chloride 40 meq 12/10/20 19:00 12/14/20 09:49 Potassium Chloride Er 20 Meq Tab PO 40 meq QDAY DARIAN Administration Sodium Chloride 10 ml 12/08/20 10:00 12/14/20 09:51 Sodium Chloride 0.9% 10 Ml Flush Syringe IV 10 ml BID DARIAN Administration Sodium Chloride 10 ml 12/08/20 05:31 Sodium Chloride 0.9% 10 Ml Flush Syringe IV PRN PRN LINE FLUSH Sodium Chloride 50 ml 12/11/20 16:00 12/13/20 21:47 Sodium Chloride 0.9% 50 Ml Ivpb IV 12/14/20 21:01 50 ml Q24HR@2100 DARIAN Administration Zinc Sulfate 220 mg 12/09/20 10:00 12/14/20 09:49 Zinc Sulfate 220 Mg Cap PO 220 mg QDAY DARIAN Administration
[2020-12-14] MEDS: guaiFENesin DM 200/20 MG ORAL LIQD 10 ML PO PRN (21:15)
[2020-12-14] MEDS: REMDESIVIR 100 MG in SODIUM CHLORIDE 0.9% 250ML 250 ML IV SCH (21:15)
[2020-12-14] MEDS: SODIUM CHLORIDE 0.9% 50 ML IVPB IV SCH (21:17)
[2020-12-15] MEDS: guaiFENesin DM 200/20 MG ORAL LIQD 10 ML PO PRN ×2 (03:13→20:58)
[2020-12-15] MEDS: LORazepam 2 MG/ML VIAL IV PRN ×3 (03:13→20:58)
[2020-12-15 05:49] LABS: Albumin 2.8 g/dL (3.9-5); Bilirubin,Direct 0.3 mg/dL (0-0.2)
[2020-12-15 06:00] LABS: C-Reactive Protein 1.2 mg/dL (0.00-1.30)
[2020-12-15] MEDS: POTASSIUM CHLORIDE ER 20 MEQ TAB PO SCH (09:30)
[2020-12-15] MEDS: ASCORBIC ACID 500 MG TAB PO SCH ×2 (09:30→21:00)
[2020-12-15] MEDS: ZINC SULFATE 220 MG CAP PO SCH (09:30)
[2020-12-15] MEDS: dexAMETHasone 4 MG/ML VIAL IV SCH (09:30)
[2020-12-15] MEDS: FAMOTIDINE 20 MG TAB PO SCH ×2 (09:30→21:00)
[2020-12-15] MEDS: CHOLECALCIFEROL (VIT D3) 1000 UNIT (25 mcg) TAB PO SCH (09:31)
[2020-12-15] MEDS: ENOXAPARIN 40 MG/0.4 ML INJ SUB-Q SCH (09:32)
--- NOTE | 2020-12-15 12:59 | Progress Note ---
Assessment and Plan Cultures: Blood culture no growth so far COVID-19 PCR: Positive A/P: 50-year-old female past medical history hypertension admitted with COVID-19 #Sepsis: With elevated lactate: Likely due to hypoxia from COVID-19. #Severe COVID-19 pneumonia: Patient presented with a week of symptoms, chest x- ray with diffuse bilateral infiltrates. No evidence of pulmonary embolism on CT. Very elevated markers. With high procalcitonin, not an Actemra candidate #Acute hypoxemic respiratory failure: on BiPAP/HFNC. #Elevated liver enzymes: ?Secondary to COVID-19. Downtrending. Hepatitis panel: Nonreactive. RUQ ultrasound showed borderline biliary dilatation, no obstruction or gallstones identified. Recs: -D-dimer 660, ferritin 147, procalcitonin 0.8, CRP 1.2. LFTs continue to downtrend. -continue steroids for at least 10 days -continue remdesivir x 5 days - liver enzymes downtrending <10X normal -Anticoagulation per hospital protocol -guarded prognosis Harriett Enamorado MD, FACP [facility], [facility] ([facility] O: [phone] F: [phone] Subjective Date of service: 12/15/20 Principal diagnosis: Ac hypoxemic resp failure; COVID-19 infxn; Pneumonia; Sepsis Interval history: No fever. Remains on BiPAP. D-dimer 660, ferritin 147, procalcitonin 0.8, CRP 1.2. LFTs continue to downtrend. Objective - Exam Narrative Exam: Physical Exam (reviewed in chart to minimize risk of transmission) Constitutional: deferred Head, Ears, Nose: deferred Eyes: deferred Neck: deferred Oral: deferred Cardiovascular: deferred Respiratory: deferred GI: deferred Musculoskeletal: deferred Skin: deferred Hem/Lymphatic: deferred Psych: deferred Neurological: deferred - Constitutional Vitals: Vital Signs Temp Pulse Resp BP Pulse Ox 97.7 F 94 H 41 H 166/97 90 12/15/20 12:00 12/15/20 12:12 12/15/20 12:12 12/15/20 12:12 12/15/20 12:12 Temperature -Last 24 Hours Temperature 97.7 F Temperature 97.4 F Temperature 98.7 F Temperature 97.8 F Temperature 98.8 F Temperature 98.1 F - Labs CBC & Chem 7: 12/13/20 07:25 12/13/20 07:25 Labs: Abnormal lab results 12/14/20 12/14/20 12/14/20 Range/Units 13:54 13:54 13:54 D-Dimer 806.70 H (0-234) ng/mlDDU Direct Bilirubin 0.4 H (0-0.2) mg/dL AST 115 H (5-40) units/L ALT 318 H (7-56) units/L Alkaline Phosphatase 617 H (35-129) units/L C-Reactive Protein 1.70 H (0.00-1.30) mg/dL Total Protein (6.3-8.2) g/dL Albumin 3.0 L (3.9-5) g/dL 12/15/20 12/15/20 Range/Units 04:37 04:37 D-Dimer 660.07 H (0-234) ng/mlDDU Direct Bilirubin 0.3 H (0-0.2) mg/dL AST 97 H (5-40) units/L ALT 281 H (7-56) units/L Alkaline Phosphatase 553 H (35-129) units/L C-Reactive Protein (0.00-1.30) mg/dL Total Protein 6.2 L (6.3-8.2) g/dL Albumin 2.8 L (3.9-5) g/dL
--- NOTE | 2020-12-15 13:36 | Progress Note ---
Assessment and Plan Acute hypoxemic respiratory failure COVID-19 infection Bilateral pneumonia Elevated serum transaminases Sepsis Anemia that is microcytic Thrombocytosis Lactic acidosis - slow improvement, continue care as below; - dopplers negative for VTE - continue NIV qhs with prn daytime use - trend LFT's - continue aspiration precautions - continue to wean supplemental oxygen for target O2 sat's > 92% acutely - bronchodilators with pulmonary hygiene per RT - avoid nephrotoxins, renally dose all medications - avoid benzodiazepine's, reduce the possibility of delirium - complete antiinfective's per ID rec's - prn analgesia per pain score - Maintenance of sleep-wake cycle, avoid delirium - G.I. & VTE prophylaxis - PT/OT/ROM exercises - continue mobility protocols for pressure ulcer prophylaxis - Monitor hemodynamics closely - continue other care per attending / other consultants - discharge planning ongoing concurrently COVID SPECIFIC INTERVENTIONS - Remdesivir as per ID/Pulmonary developed protocols (not a candidate re: LFT's) - continue systemic steroids for severe COVID-19 infection - follow repeat COVID tests results - zinc and vitamin C supplementation - Monitor inflammatory markers per facility protocol - ferritin, Ddimer, CRP - therapeutic anticoagulation per system Protocol based on d-dimer and clinical considerations (VTE prophylaxis) - Continue contact and airborne isolation .... Re-evaluate in am & prn I have spent ( >35 ) minutes with the patient w/ >50% of the time spent counseling and/or coordinating care for this patient. Counseling topics and/or how time was spent coordinating patient's care is outlined in the impression and plan above. Subjective Date of service: 12/15/20 Principal diagnosis: Ac hypoxemic resp failure; COVID-19 infxn; Pneumonia; Sepsis Interval history: Patient is seen today for: Acute hypoxemic respiratory failure; COVID-19 infection; Bilateral pneumonia; Elevated serum transaminases; Sepsis; Lactic acidosis Seen and examined at bedside; 24hour events reviewed; nursing and respiratory care staff consulted; no adverse overnight events reported to me; resting peacefully in bed; still SOB; No N/V/F/C Objective Vital Signs - 12hr 12/15/20 12/15/20 12/15/20 02:00 02:30 03:00 Temperature Pulse Rate 60 70 79 Pulse Rate [ From Monitor] Respiratory 27 H 26 H 37 H Rate Blood Pressure 175/92 160/95 171/106 O2 Sat by Pulse 100 100 100 Oximetry 12/15/20 12/15/20 12/15/20 03:30 04:00 04:30 Temperature Pulse Rate 81 96 H 92 H Pulse Rate [ 94 H From Monitor] Respiratory 22 25 H 23 Rate Blood Pressure 166/109 148/101 148/101 O2 Sat by Pulse 99 97 96 Oximetry 12/15/20 12/15/20 12/15/20 05:00 05:30 06:00 Temperature Pulse Rate 71 87 Pulse Rate [ From Monitor] Respiratory 30 H 26 H 23 Rate Blood Pressure 147/97 147/97 135/95 O2 Sat by Pulse 96 100 100 Oximetry 12/15/20 12/15/20 12/15/20 06:30 07:00 07:30 Temperature Pulse Rate 79 71 69 Pulse Rate [ From Monitor] Respiratory 26 H 21 27 H Rate Blood Pressure 135/95 137/86 137/86 O2 Sat by Pulse 95 100 100 Oximetry 12/15/20 12/15/20 12/15/20 08:00 08:17 08:30 Temperature 98.7 F Pulse Rate 100 H 71 Pulse Rate [ 87 From Monitor] Respiratory 34 H 29 H Rate Blood Pressure 157/98 137/86 O2 Sat by Pulse 95 99 100 Oximetry 12/15/20 12/15/20 12/15/20 09:00 09:30 10:00 Temperature Pulse Rate 99 H 81 93 H Pulse Rate [ From Monitor] Respiratory 35 H 41 H 23 Rate Blood Pressure 162/108 162/108 140/94 O2 Sat by Pulse 95 90 100 Oximetry 12/15/20 12/15/20 12/15/20 10:30 11:00 11:30 Temperature Pulse Rate 82 93 H Pulse Rate [ From Monitor] Respiratory 36 H 35 H 49 H Rate Blood Pressure 162/108 159/108 159/108 O2 Sat by Pulse 98 96 85 Oximetry 12/15/20 12/15/20 12:00 12:12 Temperature 97.7 F Pulse Rate 94 H 94 H Pulse Rate [ 85 From Monitor] Respiratory 28 H 41 H Rate Blood Pressure 159/108 166/97 O2 Sat by Pulse 95 90 Oximetry Constitutional: appears uncomfortable, other (middle aged female with mildly increased respiratory effort at rest) Eyes: non-icteric ENT: oropharynx moist Neck: supple, no lymphadenopathy, no JVD Effort: mildly labored Ascultation: Bilateral: rhonchi Percussion: Bilateral: not dull Cardiovascular: regular rate and rhythm Gastrointestinal: normoactive bowel sounds, soft, non-tender, non-distended Integumentary: normal Extremities: no cyanosis, no edema, pulses normal, no ischemia or petechiae Neurologic: normal mental status, non-focal exam, pupils equal and round, CN II- XII normal, motor strength normal and Psychiatric: mood appropriate, affect normal CBC and BMP: 12/13/20 07:25 12/13/20 07:25 ABG, PT/INR, D-dimer: ABG ABG pH 7.449 (7.320-7.450) 12/10/20 08:45 POC ABG pCO2 36.5 mmHg (32.0-48.0) 12/10/20 08:45 POC ABG pO2 64.5 mmHg (83-108) L 12/10/20 08:45 POC ABG HCO3 24.7 12/10/20 08:45 ABG O2 Saturation 91.0 (0-100) 12/10/20 08:45 PT/INR, D-dimer PT 16.4 Sec. (12.2-14.9) H 12/08/20 00:15 INR 1.27 (0.87-1.13) H 12/08/20 00:15 D-Dimer 660.07 ng/mlDDU (0-234) H 12/15/20 04:37 Abnormal lab findings: Abnormal Labs 12/08/20 12/08/20 12/08/20 00:15 00:15 00:15 WBC 17.0 H RBC 5.40 H Hgb 8.3 L Hct 29.7 L MCV 55 L MCH 16 L MCHC 28 L RDW 25.0 H Plt Count 464 H [place] # (Auto) Seg Neutrophils % Seg Neuts % (Manual) 92.0 H Lymphocytes % (Manual) 1.0 L Nucleated RBC % Seg Neutrophils # Seg Neutrophils # Man 15.6 H Lymphocytes # (Manual) 0.2 L Monocytes # (Manual) PT 16.4 H INR 1.27 H D-Dimer 1129.87 H POC ABG pO2 ABG Hemoglobin ABG Oxyhemoglobin ABG Potassium ABG Chloride ABG Glucose Potassium 3.1 L Chloride BUN Creatinine Glucose 128 H Lactic Acid Calcium 8.3 L Ferritin Total Bilirubin 1.90 H Direct Bilirubin AST 309 H ALT 1384 H Alkaline Phosphatase 440 H Lactate Dehydrogenase C-Reactive Protein Total Protein Albumin 3.2 L Arterial Blood Glucose Coronavirus (PCR) 12/08/20 12/08/20 12/08/20 00:15 00:15 00:15 WBC RBC Hgb Hct MCV MCH MCHC RDW Plt Count [place] # (Auto) Seg Neutrophils % Seg Neuts % (Manual) Lymphocytes % (Manual) Nucleated RBC % Seg Neutrophils # Seg Neutrophils # Man Lymphocytes # (Manual) Monocytes # (Manual) PT INR D-Dimer POC ABG pO2 ABG Hemoglobin ABG Oxyhemoglobin ABG Potassium ABG Chloride ABG Glucose Potassium Chloride BUN Creatinine Glucose Lactic Acid 2.30 H* Calcium Ferritin 289.8 H Total Bilirubin Direct Bilirubin AST ALT Alkaline Phosphatase Lactate Dehydrogenase 608 H C-Reactive Protein 20.70 H Total Protein Albumin Arterial Blood Glucose Coronavirus (PCR) 12/08/20 12/08/20 12/08/20 02:16 09:49 10:30 WBC RBC Hgb Hct MCV MCH MCHC RDW Plt Count [place] # (Auto) Seg Neutrophils % Seg Neuts % (Manual) Lymphocytes % (Manual) Nucleated RBC % Seg Neutrophils # Seg Neutrophils # Man Lymphocytes # (Manual) Monocytes # (Manual) PT INR D-Dimer POC ABG pO2 ABG Hemoglobin ABG Oxyhemoglobin ABG Potassium ABG Chloride ABG Glucose Potassium Chloride BUN Creatinine Glucose Lactic Acid 2.50 H* 2.40 H* Calcium Ferritin Total Bilirubin Direct Bilirubin AST ALT Alkaline Phosphatase Lactate Dehydrogenase C-Reactive Protein Total Protein Albumin Arterial Blood Glucose Coronavirus (PCR) Positive A 12/09/20 12/09/20 12/09/20 04:33 04:33 09:13 WBC 21.0 H RBC 5.12 H Hgb 8.2 L Hct 29.1 L MCV 57 L MCH 16 L MCHC 28 L RDW 24.6 H Plt Count 509 H [place] # (Auto) 1.3 H Seg Neutrophils % 84.3 H Seg Neuts % (Manual) 93.0 H Lymphocytes % (Manual) 2.0 L Nucleated RBC % 2.0 H Seg Neutrophils # 17.8 H Seg Neutrophils # Man 19.5 H Lymphocytes # (Manual) 0.4 L Monocytes # (Manual) PT INR D-Dimer POC ABG pO2 ABG Hemoglobin ABG Oxyhemoglobin ABG Potassium ABG Chloride ABG Glucose Potassium 3.5 L Chloride BUN 30 H 29 H Creatinine Glucose 190 H 129 H Lactic Acid Calcium Ferritin Total Bilirubin Direct Bilirubin AST 276 H ALT 867 H Alkaline Phosphatase 685 H Lactate Dehydrogenase C-Reactive Protein Total Protein Albumin 3.1 L Arterial Blood Glucose Coronavirus (PCR) 12/09/20 12/10/20 12/10/20 19:16 05:04 05:04 WBC RBC Hgb Hct MCV MCH MCHC RDW Plt Count [place] # (Auto) Seg Neutrophils % Seg Neuts % (Manual) Lymphocytes % (Manual) Nucleated RBC % Seg Neutrophils # Seg Neutrophils # Man Lymphocytes # (Manual) Monocytes # (Manual) PT INR D-Dimer POC ABG pO2 ABG Hemoglobin ABG Oxyhemoglobin ABG Potassium ABG Chloride ABG Glucose Potassium 3.4 L Chloride BUN 25 H Creatinine Glucose 184 H Lactic Acid 2.80 H* 3.30 H* Calcium 7.9 L Ferritin Total Bilirubin Direct Bilirubin AST 277 H ALT 722 H Alkaline Phosphatase 773 H Lactate Dehydrogenase C-Reactive Protein Total Protein Albumin 2.9 L Arterial Blood Glucose Coronavirus (PCR) 12/10/20 12/10/20 12/10/20 08:11 08:45 11:15 WBC RBC Hgb Hct MCV MCH MCHC RDW Plt Count [place] # (Auto) Seg Neutrophils % Seg Neuts % (Manual) Lymphocytes % (Manual) Nucleated RBC % Seg Neutrophils # Seg Neutrophils # Man Lymphocytes # (Manual) Monocytes # (Manual) PT INR D-Dimer POC ABG pO2 64.5 L ABG Hemoglobin 7.6 L ABG Oxyhemoglobin 90.2 L ABG Potassium 3.3 L ABG Chloride 108.0 H ABG Glucose 126 H Potassium Chloride BUN Creatinine Glucose Lactic Acid 2.10 H* 2.40 H* Calcium Ferritin Total Bilirubin Direct Bilirubin AST ALT Alkaline Phosphatase Lactate Dehydrogenase C-Reactive Protein Total Protein Albumin Arterial Blood Glucose 126 H Coronavirus (PCR) 12/10/20 12/10/20 12/11/20 13:36 19:13 00:49 WBC RBC Hgb Hct MCV MCH MCHC RDW Plt Count [place] # (Auto) Seg Neutrophils % Seg Neuts % (Manual) Lymphocytes % (Manual) Nucleated RBC % Seg Neutrophils # Seg Neutrophils # Man Lymphocytes # (Manual) Monocytes # (Manual) PT INR D-Dimer POC ABG pO2 ABG Hemoglobin ABG Oxyhemoglobin ABG Potassium ABG Chloride ABG Glucose Potassium 3.4 L Chloride BUN Creatinine Glucose Lactic Acid 3.40 H* 2.30 H* Calcium Ferritin Total Bilirubin Direct Bilirubin AST ALT Alkaline Phosphatase Lactate Dehydrogenase C-Reactive Protein Total Protein Albumin Arterial Blood Glucose Coronavirus (PCR) 12/11/20 12/11/20 12/11/20 05:34 05:34 10:06 WBC RBC Hgb Hct MCV MCH MCHC RDW Plt Count [place] # (Auto) Seg Neutrophils % Seg Neuts % (Manual) Lymphocytes % (Manual) Nucleated RBC % Seg Neutrophils # Seg Neutrophils # Man Lymphocytes # (Manual) Monocytes # (Manual) PT INR D-Dimer POC ABG pO2 ABG Hemoglobin ABG Oxyhemoglobin ABG Potassium ABG Chloride ABG Glucose Potassium Chloride 108.1 H BUN Creatinine 0.4 L Glucose 160 H Lactic Acid 2.30 H* 2.90 H* Calcium 8.3 L Ferritin Total Bilirubin Direct Bilirubin AST 249 H ALT 589 H Alkaline Phosphatase 701 H Lactate Dehydrogenase C-Reactive Protein Total Protein 5.9 L Albumin 3.0 L Arterial Blood Glucose Coronavirus (PCR) 12/11/20 12/11/20 12/11/20 12:38 12:38 12:38 WBC RBC Hgb Hct MCV MCH MCHC RDW Plt Count [place] # (Auto) Seg Neutrophils % Seg Neuts % (Manual) Lymphocytes % (Manual) Nucleated RBC % Seg Neutrophils # Seg Neutrophils # Man Lymphocytes # (Manual) Monocytes # (Manual) PT INR D-Dimer 725.41 H POC ABG pO2 ABG Hemoglobin ABG Oxyhemoglobin ABG Potassium ABG Chloride ABG Glucose Potassium Chloride BUN Creatinine Glucose Lactic Acid 2.50 H* Calcium Ferritin Total Bilirubin Direct Bilirubin AST ALT Alkaline Phosphatase Lactate Dehydrogenase 447 H C-Reactive Protein 2.90 H Total Protein Albumin Arterial Blood Glucose Coronavirus (PCR) 12/12/20 12/12/20 12/12/20 05:01 05:01 05:01 WBC 15.3 H RBC Hgb 8.1 L Hct 28.4 L MCV 57 L MCH 16 L MCHC 29 L RDW 25.0 H Plt Count 809 H [place] # (Auto) Seg Neutrophils % Seg Neuts % (Manual) 83.0 H Lymphocytes % (Manual) 10.0 L Nucleated RBC % 2.0 H Seg Neutrophils # Seg Neutrophils # Man 12.7 H Lymphocytes # (Manual) Monocytes # (Manual) 1.1 H PT INR D-Dimer 752.84 H POC ABG pO2 ABG Hemoglobin ABG Oxyhemoglobin ABG Potassium ABG Chloride ABG Glucose Potassium Chloride BUN 20 H Creatinine 0.4 L Glucose 120 H Lactic Acid Calcium Ferritin Total Bilirubin Direct Bilirubin AST 121 H ALT 469 H Alkaline Phosphatase 633 H Lactate Dehydrogenase 511 H C-Reactive Protein 3.50 H Total Protein Albumin 3.1 L Arterial Blood Glucose Coronavirus (PCR) 12/13/20 12/13/20 12/14/20 07:25 07:25 13:54 WBC 11.2 H RBC Hgb 7.2 L Hct 24.3 L MCV 57 L MCH 17 L MCHC RDW 25.5 H Plt Count 634 H [place] # (Auto) Seg Neutrophils % Seg Neuts % (Manual) Lymphocytes % (Manual) Nucleated RBC % Seg Neutrophils # Seg Neutrophils # Man Lymphocytes # (Manual) Monocytes # (Manual) PT INR D-Dimer POC ABG pO2 ABG Hemoglobin ABG Oxyhemoglobin ABG Potassium ABG Chloride ABG Glucose Potassium Chloride 107.6 H BUN 25 H Creatinine 0.4 L Glucose 132 H Lactic Acid Calcium Ferritin Total Bilirubin Direct Bilirubin 0.3 H 0.4 H AST 72 H 115 H ALT 295 H 318 H Alkaline Phosphatase 466 H 617 H Lactate Dehydrogenase C-Reactive Protein Total Protein 6.1 L Albumin 2.7 L 3.0 L Arterial Blood Glucose Coronavirus (PCR) 12/14/20 12/14/20 12/15/20 13:54 13:54 04:37 WBC RBC Hgb Hct MCV MCH MCHC RDW Plt Count [place] # (Auto) Seg Neutrophils % Seg Neuts % (Manual) Lymphocytes % (Manual) Nucleated RBC % Seg Neutrophils # Seg Neutrophils # Man Lymphocytes # (Manual) Monocytes # (Manual) PT INR D-Dimer 806.70 H POC ABG pO2 ABG Hemoglobin ABG Oxyhemoglobin ABG Potassium ABG Chloride ABG Glucose Potassium Chloride BUN Creatinine Glucose Lactic Acid Calcium Ferritin Total Bilirubin Direct Bilirubin 0.3 H AST 97 H ALT 281 H Alkaline Phosphatase 553 H Lactate Dehydrogenase C-Reactive Protein 1.70 H Total Protein 6.2 L Albumin 2.8 L Arterial Blood Glucose Coronavirus (PCR) 12/15/20 04:37 WBC RBC Hgb Hct MCV MCH MCHC RDW Plt Count [place] # (Auto) Seg Neutrophils % Seg Neuts % (Manual) Lymphocytes % (Manual) Nucleated RBC % Seg Neutrophils # Seg Neutrophils # Man Lymphocytes # (Manual) Monocytes # (Manual) PT INR D-Dimer 660.07 H POC ABG pO2 ABG Hemoglobin ABG Oxyhemoglobin ABG Potassium ABG Chloride ABG Glucose Potassium Chloride BUN Creatinine Glucose Lactic Acid Calcium Ferritin Total Bilirubin Direct Bilirubin AST ALT Alkaline Phosphatase Lactate Dehydrogenase C-Reactive Protein Total Protein Albumin Arterial Blood Glucose Coronavirus (PCR) Chest x-ray: pending Allied health notes reviewed: nursing
--- NOTE | 2020-12-15 18:09 | Progress Note ---
Assessment and Plan Assessment and plan: 50-year-old female with history of hypertension was brought to the emergency room because of shortness of breath, cough, fever, Covid positive. Patient was diagnosed with COVID-19 1 week ago. Since then patient complained of worsening shortness of breath. Patient states she has not seen a physician for this. Patient states she does not take any medicine. Patient states the fever is fluctuating. Patient states it responds well to Tylenol. Patient states her cough is dry. Patient states she has not been vaccinated for COVID-19. Patient complains of chills. Patient denies nausea vomiting. Patient denies diarrhea. Patient denies abdominal pain. Patient denies chest pain. Patient's ox saturation was 82%. Patient was found to have acute respiratory failure. Patient WBC 17.0 and chest x-ray shows pneumonia secondary to Covid. Patient was put on BiPAP (1) Acute hypoxic respiratory failure 2/2 Covid 19 PNA pulmonary following and note reviewed Patient is on 35% Fio2 with O2 sat 93-94% (2) COVID-19 Current Visit: Yes Status: Acute Plan to address problem: ID note reviewed inflammatory markers reviewed cont. Dexamethasone x 10 days Cleared for starting remdesivir as LFTs < 10 times normal monitor markers 3. Severe sepsis procalcitonin results reviewed ID note reviewed cont. ceftriaxone and azithromycin Leucocytosis: 2/2 sepsis monitor CBC (4) Hypertension Current Visit: Yes Status: Acute Plan to address problem: Hydralazine 10 mg IV every 6 hours as needed she has no hx of HTN 5) Transaminitis: results reviewed cont. to monitor (6) anemia (7) DVT prophylaxis Current Visit: Yes Status: Acute Plan to address problem: will stop heparin and start on lovenox. Pepcid 20 mg p.o. twice daily for GI prophylaxis. Patient is a full code. 12/09/2020 -Patient was on BiPAP with FiO2 of 100%, patient desaturated when she was off BiPAP momentarily. I put her on D5 half-normal saline for maintenance. Titrate oxygen as tolerated. -Pulmonary consulted, ID consulted. -Patient has elevated ALT and AST and is not a candidate for remdesivir. -Patient is on IV antibiotics and procalcitonin level is elevated, ID recommends to continue with IV antibiotics. ID said patient is not a candidate for Actemra because of the infection with elevated procalcitonin level. 12/10; patient is on BiPAP, on Decadron. Remdesivir discontinued due to elevated liver enzymes. Patient not a candidate for Actemra because patient has elevated procalcitonin level. Continue with IV antibiotics. Prognosis is guarded. 12/11patient is A&O,A&O, c/o weakness and feels tired. C/O shortness of breath. requesting stool sofner. She denies f/c/CP/N/abd. pain 12/12: Continue supportive care. Wean oxygen as tolerated. Will obtain pulmonary consult will evaluate for possible Lasix therapy. Noted anemia with hemoglobin of 8.1 will monitor this closely. D-dimer is elevated so is AST and ALT and alk phos. This may preclude use of medications such as remdesivir which has been discontinued in relation to this. Patient remains critically ill. 12/13: Patient showing some improve, still with BiPAP requirements, continue supportive care, continued sterods, Remdesivr per ID, monitor renal function closely and LFT. wean oxygen as tolerated. Prognosis guarded 12/14: Patient seen and examined, she is showing good improvement, down to 10 liters except that she gets anxious. I spoke extensively with the family and updated them on her clinical condition 12/15: Patient continues to show good improvement, weaned down to 5L of oxygen with saturation of 99%. Will transfer to Medical floor and continue current management. The high probability of a clinically significant, sudden or life threatening deterioration of the [PULMONARY] system(s) required my full and direct attentio n, intervention and personal management. The aggregate critical care time was [35] minutes. This time is in addition to time spent performing reported procedures but includes the following: [X] Data Review and interpretation [X] Patient assessment and monitoring of vital signs [X] Documentation [X] Medication orders and management History Interval history: Patient seen and examined showing some improvement, intermittent anxiety, down to 5 liters with saturation of 95% Hospitalist Physical - Physical exam Narrative exam: VITAL SIGNS: Reviewed. GENERAL: The patient appears normally developed, otherwise short of breath, vital signs as documented. HEAD: No signs of head trauma. EYES: Pupils are equal. Extraocular motions intact. EARS: Hearing grossly intact. MOUTH: Oropharynx is normal. NECK: No adenopathy, no JVD. CHEST: Chest with diminshed breath sounds bilaterally. No wheezes, rales, or rhonchi. CARDIAC: Regular rate and rhythm. S1 and S2, without murmurs, gallops, or rubs. VASCULAR: No Edema. Peripheral pulses normal and equal in all extremities. ABDOMEN: Soft, non tender and non distended. No rebound or guarding, and no masses palpated. Bowel Sounds normal. MUSCULOSKELETAL: Good range of motion of all major joints. Extremities without clubbing, cyanosis or edema. NEUROLOGIC EXAM: Alert and oriented x 3 No focal sensory or strength deficits. Speech normal. Follows commands. PSYCHIATRIC: Mood normal but intermittently anxious, not at the moment SKIN: detail exam as documented in skin assessment - Constitutional Vitals: Temp Pulse Resp BP Pulse Ox 97.7 F 98 H 30 H 149/104 92 12/15/20 12:00 12/15/20 16:01 12/15/20 16:00 12/15/20 16:01 12/15/20 16:01 General appearance: Present: no acute distress Results - Labs CBC & Chem 7: 12/13/20 07:25 12/13/20 07:25 Labs: Laboratory Last Values WBC 11.2 K/mm3 (4.5-11.0) H 12/13/20 07:25 RBC 4.26 M/mm3 (3.65-5.03) 12/13/20 07:25 Hgb 7.2 gm/dl (10.1-14.3) L 12/13/20 07:25 Hct 24.3 % (30.3-42.9) L 12/13/20 07:25 MCV 57 fl (79-97) L 12/13/20 07:25 MCH 17 pg (28-32) L 12/13/20 07:25 MCHC 30 % (30-34) 12/13/20 07:25 RDW 25.5 % (13.2-15.2) H 12/13/20 07:25 Plt Count 634 K/mm3 (140-440) H 12/13/20 07:25 Hinds % (Auto) 6.0 % (0.0-7.3) 12/09/20 04:33 Hinds # (Auto) 1.3 K/mm3 (0.0-0.8) H 12/09/20 04:33 Add Manual Diff Complete 08/16/21 05:01 Total Counted 100 12/12/20 05:01 Seg Neutrophils % 84.3 % (40.0-70.0) H 12/09/20 04:33 Seg Neuts % (Manual) 83.0 % (40.0-70.0) H 12/12/20 05:01 Band Neutrophils % 3.0 % 12/09/20 04:33 Lymphocytes % (Manual) 10.0 % (13.4-35.0) L 12/12/20 05:01 Monocytes % (Manual) 7.0 % (0.0-7.3) 12/12/20 05:01 Metamyelocytes % 1.0 % 12/08/20 00:15 Nucleated RBC % 2.0 % (0.0-0.9) H 12/12/20 05:01 Seg Neutrophils # 17.8 K/mm3 (1.8-7.7) H 12/09/20 04:33 Seg Neutrophils # Man 12.7 K/mm3 (1.8-7.7) H 12/12/20 05:01 Band Neutrophils # 0.0 K/mm3 12/12/20 05:01 Lymphocytes # (Manual) 1.5 K/mm3 (1.2-5.4) 12/12/20 05:01 Abs React Lymphs (Man) 0.0 K/mm3 12/12/20 05:01 Monocytes # (Manual) 1.1 K/mm3 (0.0-0.8) H 12/12/20 05:01 Eosinophils # (Manual) 0.0 K/mm3 (0.0-0.4) 12/12/20 05:01 Basophils # (Manual) 0.0 K/mm3 (0.0-0.1) 12/12/20 05:01 Metamyelocytes # 0.0 K/mm3 12/12/20 05:01 Myelocytes # 0.0 K/mm3 12/12/20 05:01 Promyelocytes # 0.0 K/mm3 12/12/20 05:01 Blast Cells # 0.0 K/mm3 12/12/20 05:01 WBC Morphology Not Reportable 12/12/20 05:01 Hypersegmented Neuts Not Reportable 12/12/20 05:01 Hyposegmented Neuts Not Reportable 12/12/20 05:01 Hypogranular Neuts Not Reportable 12/12/20 05:01 Smudge Cells Not Reportable 12/12/20 05:01 Toxic Granulation Not Reportable 12/12/20 05:01 Toxic Vacuolation Not Reportable 12/12/20 05:01 Dohle Bodies Not Reportable 12/12/20 05:01 Pelger-Huet Anomaly Not Reportable 12/12/20 05:01 Lauryn Rods Not Reportable 12/12/20 05:01 Platelet Estimate Consistent w auto 12/12/20 05:01 Clumped Platelets Not Reportable 12/12/20 05:01 Plt Clumps, EDTA Not Reportable 12/12/20 05:01 Large Platelets Not Reportable 12/12/20 05:01 Giant Platelets Not Reportable 12/12/20 05:01 Platelet Satelliting Not Reportable 12/12/20 05:01 Plt Morphology Comment Not Reportable 12/12/20 05:01 RBC Morphology Not Reportable 12/12/20 05:01 Dimorphic RBCs Not Reportable 12/12/20 05:01 Polychromasia Not Reportable 12/12/20 05:01 Hypochromasia 3+ 12/12/20 05:01 Poikilocytosis 1+ 12/12/20 05:01 Anisocytosis 2+ 12/12/20 05:01 Microcytosis 2+ 12/12/20 05:01 Macrocytosis Not Reportable 12/12/20 05:01 Spherocytes Not Reportable 12/12/20 05:01 Pappenheimer Bodies Not Reportable 12/12/20 05:01 Sickle Cells Not Reportable 12/12/20 05:01 Target Cells Not Reportable 12/12/20 05:01 Tear Drop Cells Few 12/12/20 05:01 Ovalocytes Few 12/12/20 05:01 Helmet Cells Not Reportable 12/12/20 05:01 Torres-Gambell Bodies Not Reportable 12/12/20 05:01 [place] Rings Not Reportable 12/12/20 05:01 [place] Cells Not Reportable 12/12/20 05:01 Bite Cells Not Reportable 12/12/20 05:01 Crenated Cell Not Reportable 12/12/20 05:01 Elliptocytes Few 12/12/20 05:01 Acanthocytes (Spur) Not Reportable 12/12/20 05:01 Rouleaux Not Reportable 12/12/20 05:01 Hemoglobin C Crystals Not Reportable 12/12/20 05:01 Schistocytes Not Reportable 12/12/20 05:01 Malaria parasites Not Reportable 12/12/20 05:01 Brant Bodies Not Reportable 12/12/20 05:01 Hem Pathologist Commnt No 12/12/20 05:01 PT 16.4 Sec. (12.2-14.9) H 12/08/20 00:15 INR 1.27 (0.87-1.13) H 12/08/20 00:15 APTT 29.6 Sec. (24.2-36.6) 12/08/20 00:15 D-Dimer 660.07 ng/mlDDU (0-234) H 12/15/20 04:37 ABG pH 7.449 (7.320-7.450) 12/10/20 08:45 POC ABG pCO2 36.5 mmHg (32.0-48.0) 12/10/20 08:45 POC ABG pO2 64.5 mmHg (83-108) L 12/10/20 08:45 POC ABG HCO3 24.7 12/10/20 08:45 ABG O2 Saturation 91.0 (0-100) 12/10/20 08:45 POC ABG Base Excess 0.8 12/10/20 08:45 ABG Hemoglobin 7.6 (12.0-17.5) L 12/10/20 08:45 ABG Oxyhemoglobin 90.2 (94-98) L 12/10/20 08:45 ABG Methemoglobin 0.1 (0.0-1.5) 12/10/20 08:45 ABG Sodium 139.9 mmol/L (136.0-145.0) 12/10/20 08:45 ABG Potassium 3.3 mmol/L (3.40-4.50) L 12/10/20 08:45 ABG Chloride 108.0 mmol/L (98-107) H 12/10/20 08:45 ABG Glucose 126 mg/dL (65-95) H 12/10/20 08:45 Carboxyhemoglobin 0.8 (0.5-1.5) 12/10/20 08:45 FiO2 % 35.0 12/10/20 08:45 Sodium 141 mmol/L (137-145) 12/13/20 07:25 Potassium 4.5 mmol/L (3.6-5.0) 12/13/20 07:25 Chloride 107.6 mmol/L (98-107) H 12/13/20 07:25 Carbon Dioxide 23 mmol/L (22-30) 12/13/20 07:25 Anion Gap 15 mmol/L 12/13/20 07:25 BUN 25 mg/dL (7-17) H 12/13/20 07:25 Creatinine 0.4 mg/dL (0.6-1.2) L 12/13/20 07:25 Estimated GFR > 60 ml/min 12/13/20 07:25 BUN/Creatinine Ratio 63 % 12/13/20 07:25 Glucose 132 mg/dL (65-100) H 12/13/20 07:25 Lactic Acid 2.50 mmol/L (0.7-2.0) H* 12/11/20 12:38 Calcium 8.4 mg/dL (8.4-10.2) 12/13/20 07:25 Ferritin 147.8 ng/mL (10.0-200.0) 12/15/20 04:37 Total Bilirubin 0.60 mg/dL (0.1-1.2) 12/15/20 04:37 Direct Bilirubin 0.3 mg/dL (0-0.2) H 12/15/20 04:37 Indirect Bilirubin 0.3 mg/dL 12/15/20 04:37 AST 97 units/L (5-40) H 12/15/20 04:37 ALT 281 units/L (7-56) H 12/15/20 04:37 Alkaline Phosphatase 553 units/L (35-129) H 12/15/20 04:37 Lactate Dehydrogenase 511 units/L (91-180) H 12/12/20 05:01 C-Reactive Protein 1.20 mg/dL (0.00-1.30) 12/15/20 04:37 Total Protein 6.2 g/dL (6.3-8.2) L 12/15/20 04:37 Albumin 2.8 g/dL (3.9-5) L 12/15/20 04:37 Albumin/Globulin Ratio 0.8 % 12/15/20 04:37 Procalcitonin 0.83 ng/mL (<0.15) 12/15/20 04:37 Arterial Blood Glucose 126 mg/dL (65-95) H 12/10/20 08:45 Coronavirus (PCR) Positive (Negative) A 12/08/20 10:30 Hepatitis A IgM Ab Non-reactive (NonReactive) 12/13/20 07:25 Hep Bs Antigen Nonreactive (Negative) 12/13/20 07:25 Hep B Core IgM Ab Non-reactive (NonReactive) 12/13/20 07:25 Hepatitis C Antibody Non-reactive (NonReactive) 12/13/20 07:25 Kilpatrick/IV: Voiding Method Indwelling Catheter Active Medications - Current Medications Current Medications: Generic Name Dose Route Start Last Admin Trade Name Freq PRN Reason Stop Dose Admin Acetaminophen 650 mg 12/08/20 05:31 Acetaminophen 325 Mg Tab PO Q4H PRN Pain MILD(1-3)/Fever >100.5/[place] Albuterol 2.5 mg 12/08/20 05:31 Albuterol 2.5 Mg/3 Ml Nebu IH Q4HRT PRN Shortness Of Breath Ascorbic Acid 500 mg 12/09/20 10:00 12/15/20 09:30 Ascorbic Acid 500 Mg Tab PO 500 mg BID DARIAN Administration Cholecalciferol 1,000 unit 12/09/20 10:00 12/15/20 09:31 Cholecalciferol (Vit D3) 1000 Unit (25 Mcg) Tab PO 1,000 unit QDAY DARIAN Administration Dexamethasone 6 mg 12/08/20 10:00 12/15/20 09:30 Dexamethasone 4 Mg/Ml Vial IV 12/17/20 10:01 6 mg DAILY DARIAN Administration Enoxaparin Sodium 40 mg 12/14/20 10:00 12/15/20 09:32 Enoxaparin 40 Mg/0.4 Ml Inj SUB-Q 40 mg QDAY@1000 DARIAN Administration Protocol Famotidine 20 mg 12/08/20 10:00 12/15/20 09:30 Famotidine 20 Mg Tab PO 20 mg BID DARIAN Administration Guaifenesin 10 ml 12/14/20 15:00 12/15/20 03:13 Guaifenesin Dm 200/20 Mg Oral Liqd 10 Ml PO 10 ml Q4H PRN Administration Cough Hydromorphone HCl 0.5 mg 12/08/20 05:31 12/13/20 16:50 Hydromorphone 1 Mg/1 Ml Inj IV 0.5 mg Q3H PRN Administration Pain , Severe (7-10) REMDESIVIR 100 mg/ Sodium 250 mls @ 500 mls/hr 12/12/20 21:00 12/14/20 21:15 Chloride IV 12/15/20 21:29 500 mls/hr Q24HR@2100 DARIAN Administration Lisinopril 20 mg 12/15/20 19:00 Lisinopril 20 Mg Tab PO QDAY DARIAN Lorazepam 1 mg 12/09/20 13:02 12/15/20 11:47 Lorazepam 2 Mg/Ml Vial IV 1 mg Q4H PRN Administration Anxiety Ondansetron HCl 4 mg 12/08/20 05:31 Ondansetron 4 Mg/2 Ml Inj IV Q8H PRN Nausea And Vomiting Oxycodone/Acetaminophen 1 tab 12/08/20 05:31 12/14/20 15:15 Oxycodone /Acetaminophen 5-325mg Tab PO 1 tab Q6H PRN Administration Pain, Moderate (4-6) Polyethylene Glycol 17 gm 12/11/20 15:53 Polyethylene Glycol 3350 17 Gm Powder PO QDAY PRN Constipation Sodium Chloride 10 ml 12/08/20 10:00 12/15/20 09:31 Sodium Chloride 0.9% 10 Ml Flush Syringe IV 10 ml BID DARIAN Administration Sodium Chloride 10 ml 12/08/20 05:31 Sodium Chloride 0.9% 10 Ml Flush Syringe IV PRN PRN LINE FLUSH Zinc Sulfate 220 mg 12/09/20 10:00 12/15/20 09:30 Zinc Sulfate 220 Mg Cap PO 220 mg QDAY DARIAN Administration
[2020-12-15] MEDS: HYDROmorphone 1 MG/1 ML INJ IV PRN (18:17)
[2020-12-15] MEDS: LISINOPRIL 20 MG TAB PO SCH (20:58)
[2020-12-15] MEDS: REMDESIVIR 100 MG in SODIUM CHLORIDE 0.9% 250ML 250 ML IV SCH (22:22)
[2020-12-16] MEDS: ZINC SULFATE 220 MG CAP PO SCH (09:35)
[2020-12-16] MEDS: dexAMETHasone 4 MG/ML VIAL IV SCH (09:35)
[2020-12-16] MEDS: ASCORBIC ACID 500 MG TAB PO SCH ×2 (09:35→22:01)
[2020-12-16] MEDS: FAMOTIDINE 20 MG TAB PO SCH ×2 (09:35→22:01)
[2020-12-16] MEDS: CHOLECALCIFEROL (VIT D3) 1000 UNIT (25 mcg) TAB PO SCH (09:35)
[2020-12-16] MEDS: LISINOPRIL 20 MG TAB PO SCH (09:35)
[2020-12-16] MEDS: ENOXAPARIN 40 MG/0.4 ML INJ SUB-Q SCH (09:36)
[2020-12-16] MEDS: LORazepam 2 MG/ML VIAL IV PRN (12:05)
--- NOTE | 2020-12-16 12:27 | Progress Note ---
Assessment and Plan Cultures: Blood culture no growth so far COVID-19 PCR: Positive A/P: 50-year-old female past medical history hypertension admitted with COVID-19 #Sepsis: With elevated lactate: Likely due to hypoxia from COVID-19. #Severe COVID-19 pneumonia: Patient presented with a week of symptoms, chest x- ray with diffuse bilateral infiltrates. No evidence of pulmonary embolism on CT. Very elevated markers. With high procalcitonin, not an Actemra candidate #Acute hypoxemic respiratory failure: on BiPAP/HFNC. #Elevated liver enzymes: ?Secondary to COVID-19. Downtrending. Hepatitis panel: Nonreactive. RUQ ultrasound showed borderline biliary dilatation, no obstruction or gallstones identified. Recs: -continue steroids for at least 10 days -completed remdesivir -Anticoagulation per hospital protocol -guarded prognosis Harriett Enamorado MD, FACP [facility] ([facility]) O: [phone] F: [phone] Subjective Date of service: 12/16/20 Principal diagnosis: Ac hypoxemic resp failure; COVID-19 infxn; Pneumonia; Sepsis Interval history: Remains on BiPAP. Afebrile. Objective - Exam Narrative Exam: Physical Exam (reviewed in chart to minimize risk of transmission) Constitutional: deferred Head, Ears, Nose: deferred Eyes: deferred Neck: deferred Oral: deferred Cardiovascular: deferred Respiratory: deferred GI: deferred Musculoskeletal: deferred Skin: deferred Hem/Lymphatic: deferred Psych: deferred Neurological: deferred - Constitutional Vitals: Vital Signs Temp Pulse Resp BP Pulse Ox 98.0 F 90 19 117/84 100 12/16/20 08:00 12/16/20 07:00 12/16/20 07:00 12/16/20 07:00 12/16/20 07:41 Temperature -Last 24 Hours Temperature 98.0 F Temperature 98.3 F Temperature 98.3 F Temperature 99.2 F - Labs CBC & Chem 7: 12/13/20 07:25 12/13/20 07:25
--- NOTE | 2020-12-16 13:09 | Progress Note ---
Assessment and Plan Acute hypoxemic respiratory failure COVID-19 infection Bilateral pneumonia Elevated serum transaminases Sepsis Anemia that is microcytic Thrombocytosis Lactic acidosis - discontinued Ativan - Xanax 0.125mg p.o. bid X 3 days (also 0.25 mg p.o. q6h prn Anxiety - Awake proning - watch closely but continue care as below; - dopplers negative for VTE - continue NIV qhs with prn daytime use - trend LFT's - continue aspiration precautions - continue to wean supplemental oxygen for target O2 sat's > 92% acutely - bronchodilators with pulmonary hygiene per RT - avoid nephrotoxins, renally dose all medications - avoid benzodiazepine's, reduce the possibility of delirium - complete antiinfective's per ID rec's - prn analgesia per pain score - Maintenance of sleep-wake cycle, avoid delirium - G.I. & VTE prophylaxis - PT/OT/ROM exercises - continue mobility protocols for pressure ulcer prophylaxis - Monitor hemodynamics closely - continue other care per attending / other consultants - discharge planning ongoing concurrently COVID SPECIFIC INTERVENTIONS - Remdesivir as per ID/Pulmonary developed protocols (not a candidate re: LFT's) - continue systemic steroids for severe COVID-19 infection - follow repeat COVID tests results - zinc and vitamin C supplementation - Monitor inflammatory markers per facility protocol - ferritin, Ddimer, CRP - therapeutic anticoagulation per system Protocol based on d-dimer and clinical considerations (VTE prophylaxis) - Continue contact and airborne isolation .... Re-evaluate in am & prn I have spent ( >35 ) minutes with the patient w/ >50% of the time spent counseling and/or coordinating care for this patient. Counseling topics and/or how time was spent coordinating patient's care is outlined in the impression and plan above. Subjective Date of service: 12/16/20 Principal diagnosis: Ac hypoxemic resp failure; COVID-19 infxn; Pneumonia; Sepsis Interval history: Patient is seen today for: Acute hypoxemic respiratory failure; COVID-19 infection; Bilateral pneumonia; Elevated serum transaminases; Sepsis; Lactic acidosis Seen and examined at bedside; 24hour events reviewed; nursing and respiratory care staff consulted; no adverse overnight events reported to me; resting in bed; complains mostly of anxiety issues with attendant increased work of breathing;' denies N/V/F/C Objective Vital Signs - 12hr 12/16/20 12/16/2021 02:01 02:04 02:55 Temperature Pulse Rate 81 Pulse Rate [ From Monitor] Respiratory 33 H Rate Blood Pressure 128/77 O2 Sat by Pulse 100 100 95 Oximetry 12/16/20 12/16/20 12/16/20 03:00 03:55 04:00 Temperature 98.3 F Pulse Rate 79 76 82 Pulse Rate [ 76 From Monitor] Respiratory 29 H 33 H Rate Blood Pressure 127/76 122/80 O2 Sat by Pulse 99 100 Oximetry 12/16/20 12/16/20 12/16/20 05:00 06:00 07:00 Temperature Pulse Rate 79 82 90 Pulse Rate [ From Monitor] Respiratory 24 21 19 Rate Blood Pressure 122/83 111/76 117/84 O2 Sat by Pulse 100 100 100 Oximetry 12/16/20 12/16/20 12/16/20 07:41 08:00 12:00 Temperature 98.0 F 97.8 F Pulse Rate Pulse Rate [ From Monitor] Respiratory Rate Blood Pressure O2 Sat by Pulse 100 Oximetry 12/16/20 12:32 Temperature Pulse Rate 90 Pulse Rate [ From Monitor] Respiratory 48 H Rate Blood Pressure 145/90 O2 Sat by Pulse 94 Oximetry Constitutional: appears uncomfortable, other (middle aged female with mildly increased respiratory effort at rest) Eyes: non-icteric ENT: oropharynx moist Neck: supple, no lymphadenopathy, no JVD Effort: mildly labored Ascultation: Bilateral: rhonchi Percussion: Bilateral: not dull Cardiovascular: regular rate and rhythm Gastrointestinal: normoactive bowel sounds, soft, non-tender, non-distended Integumentary: normal Extremities: no cyanosis, no edema, pulses normal, no ischemia or petechiae Neurologic: normal mental status, non-focal exam, pupils equal and round, CN II- XII normal, motor strength normal and Psychiatric: mood appropriate, affect normal CBC and BMP: 12/13/20 07:25 12/13/20 07:25 ABG, PT/INR, D-dimer: ABG ABG pH 7.449 (7.320-7.450) 12/10/20 08:45 POC ABG pCO2 36.5 mmHg (32.0-48.0) 12/10/20 08:45 POC ABG pO2 64.5 mmHg (83-108) L 12/10/20 08:45 POC ABG HCO3 24.7 12/10/20 08:45 ABG O2 Saturation 91.0 (0-100) 12/10/20 08:45 PT/INR, D-dimer PT 16.4 Sec. (12.2-14.9) H 12/08/20 00:15 INR 1.27 (0.87-1.13) H 12/08/20 00:15 D-Dimer 660.07 ng/mlDDU (0-234) H 12/15/20 04:37 Abnormal lab findings: Abnormal Labs 12/08/20 12/08/20 12/08/20 00:15 00:15 00:15 WBC 17.0 H RBC 5.40 H Hgb 8.3 L Hct 29.7 L MCV 55 L MCH 16 L MCHC 28 L RDW 25.0 H Plt Count 464 H [place] # (Auto) Seg Neutrophils % Seg Neuts % (Manual) 92.0 H Lymphocytes % (Manual) 1.0 L Nucleated RBC % Seg Neutrophils # Seg Neutrophils # Man 15.6 H Lymphocytes # (Manual) 0.2 L Monocytes # (Manual) PT 16.4 H INR 1.27 H D-Dimer 1129.87 H POC ABG pO2 ABG Hemoglobin ABG Oxyhemoglobin ABG Potassium ABG Chloride ABG Glucose Potassium 3.1 L Chloride BUN Creatinine Glucose 128 H Lactic Acid Calcium 8.3 L Ferritin Total Bilirubin 1.90 H Direct Bilirubin AST 309 H ALT 1384 H Alkaline Phosphatase 440 H Lactate Dehydrogenase C-Reactive Protein Total Protein Albumin 3.2 L Arterial Blood Glucose Coronavirus (PCR) 12/08/20 12/08/20 12/08/20 00:15 00:15 00:15 WBC RBC Hgb Hct MCV MCH MCHC RDW Plt Count [place] # (Auto) Seg Neutrophils % Seg Neuts % (Manual) Lymphocytes % (Manual) Nucleated RBC % Seg Neutrophils # Seg Neutrophils # Man Lymphocytes # (Manual) Monocytes # (Manual) PT INR D-Dimer POC ABG pO2 ABG Hemoglobin ABG Oxyhemoglobin ABG Potassium ABG Chloride ABG Glucose Potassium Chloride BUN Creatinine Glucose Lactic Acid 2.30 H* Calcium Ferritin 289.8 H Total Bilirubin Direct Bilirubin AST ALT Alkaline Phosphatase Lactate Dehydrogenase 608 H C-Reactive Protein 20.70 H Total Protein Albumin Arterial Blood Glucose Coronavirus (PCR) 12/08/20 12/08/20 12/08/20 02:16 09:49 10:30 WBC RBC Hgb Hct MCV MCH MCHC RDW Plt Count [place] # (Auto) Seg Neutrophils % Seg Neuts % (Manual) Lymphocytes % (Manual) Nucleated RBC % Seg Neutrophils # Seg Neutrophils # Man Lymphocytes # (Manual) Monocytes # (Manual) PT INR D-Dimer POC ABG pO2 ABG Hemoglobin ABG Oxyhemoglobin ABG Potassium ABG Chloride ABG Glucose Potassium Chloride BUN Creatinine Glucose Lactic Acid 2.50 H* 2.40 H* Calcium Ferritin Total Bilirubin Direct Bilirubin AST ALT Alkaline Phosphatase Lactate Dehydrogenase C-Reactive Protein Total Protein Albumin Arterial Blood Glucose Coronavirus (PCR) Positive A 12/09/20 12/09/20 12/09/20 04:33 04:33 09:13 WBC 21.0 H RBC 5.12 H Hgb 8.2 L Hct 29.1 L MCV 57 L MCH 16 L MCHC 28 L RDW 24.6 H Plt Count 509 H [place] # (Auto) 1.3 H Seg Neutrophils % 84.3 H Seg Neuts % (Manual) 93.0 H Lymphocytes % (Manual) 2.0 L Nucleated RBC % 2.0 H Seg Neutrophils # 17.8 H Seg Neutrophils # Man 19.5 H Lymphocytes # (Manual) 0.4 L Monocytes # (Manual) PT INR D-Dimer POC ABG pO2 ABG Hemoglobin ABG Oxyhemoglobin ABG Potassium ABG Chloride ABG Glucose Potassium 3.5 L Chloride BUN 30 H 29 H Creatinine Glucose 190 H 129 H Lactic Acid Calcium Ferritin Total Bilirubin Direct Bilirubin AST 276 H ALT 867 H Alkaline Phosphatase 685 H Lactate Dehydrogenase C-Reactive Protein Total Protein Albumin 3.1 L Arterial Blood Glucose Coronavirus (PCR) 12/09/20 12/10/20 12/10/20 19:16 05:04 05:04 WBC RBC Hgb Hct MCV MCH MCHC RDW Plt Count [place] # (Auto) Seg Neutrophils % Seg Neuts % (Manual) Lymphocytes % (Manual) Nucleated RBC % Seg Neutrophils # Seg Neutrophils # Man Lymphocytes # (Manual) Monocytes # (Manual) PT INR D-Dimer POC ABG pO2 ABG Hemoglobin ABG Oxyhemoglobin ABG Potassium ABG Chloride ABG Glucose Potassium 3.4 L Chloride BUN 25 H Creatinine Glucose 184 H Lactic Acid 2.80 H* 3.30 H* Calcium 7.9 L Ferritin Total Bilirubin Direct Bilirubin AST 277 H ALT 722 H Alkaline Phosphatase 773 H Lactate Dehydrogenase C-Reactive Protein Total Protein Albumin 2.9 L Arterial Blood Glucose Coronavirus (PCR) 12/10/20 12/10/20 12/10/20 08:11 08:45 11:15 WBC RBC Hgb Hct MCV MCH MCHC RDW Plt Count [place] # (Auto) Seg Neutrophils % Seg Neuts % (Manual) Lymphocytes % (Manual) Nucleated RBC % Seg Neutrophils # Seg Neutrophils # Man Lymphocytes # (Manual) Monocytes # (Manual) PT INR D-Dimer POC ABG pO2 64.5 L ABG Hemoglobin 7.6 L ABG Oxyhemoglobin 90.2 L ABG Potassium 3.3 L ABG Chloride 108.0 H ABG Glucose 126 H Potassium Chloride BUN Creatinine Glucose Lactic Acid 2.10 H* 2.40 H* Calcium Ferritin Total Bilirubin Direct Bilirubin AST ALT Alkaline Phosphatase Lactate Dehydrogenase C-Reactive Protein Total Protein Albumin Arterial Blood Glucose 126 H Coronavirus (PCR) 12/10/20 12/10/20 12/11/20 13:36 19:13 00:49 WBC RBC Hgb Hct MCV MCH MCHC RDW Plt Count [place] # (Auto) Seg Neutrophils % Seg Neuts % (Manual) Lymphocytes % (Manual) Nucleated RBC % Seg Neutrophils # Seg Neutrophils # Man Lymphocytes # (Manual) Monocytes # (Manual) PT INR D-Dimer POC ABG pO2 ABG Hemoglobin ABG Oxyhemoglobin ABG Potassium ABG Chloride ABG Glucose Potassium 3.4 L Chloride BUN Creatinine Glucose Lactic Acid 3.40 H* 2.30 H* Calcium Ferritin Total Bilirubin Direct Bilirubin AST ALT Alkaline Phosphatase Lactate Dehydrogenase C-Reactive Protein Total Protein Albumin Arterial Blood Glucose Coronavirus (PCR) 12/11/20 12/11/20 12/11/20 05:34 05:34 10:06 WBC RBC Hgb Hct MCV MCH MCHC RDW Plt Count [place] # (Auto) Seg Neutrophils % Seg Neuts % (Manual) Lymphocytes % (Manual) Nucleated RBC % Seg Neutrophils # Seg Neutrophils # Man Lymphocytes # (Manual) Monocytes # (Manual) PT INR D-Dimer POC ABG pO2 ABG Hemoglobin ABG Oxyhemoglobin ABG Potassium ABG Chloride ABG Glucose Potassium Chloride 108.1 H BUN Creatinine 0.4 L Glucose 160 H Lactic Acid 2.30 H* 2.90 H* Calcium 8.3 L Ferritin Total Bilirubin Direct Bilirubin AST 249 H ALT 589 H Alkaline Phosphatase 701 H Lactate Dehydrogenase C-Reactive Protein Total Protein 5.9 L Albumin 3.0 L Arterial Blood Glucose Coronavirus (PCR) 12/11/20 12/11/20 12/11/20 12:38 12:38 12:38 WBC RBC Hgb Hct MCV MCH MCHC RDW Plt Count [place] # (Auto) Seg Neutrophils % Seg Neuts % (Manual) Lymphocytes % (Manual) Nucleated RBC % Seg Neutrophils # Seg Neutrophils # Man Lymphocytes # (Manual) Monocytes # (Manual) PT INR D-Dimer 725.41 H POC ABG pO2 ABG Hemoglobin ABG Oxyhemoglobin ABG Potassium ABG Chloride ABG Glucose Potassium Chloride BUN Creatinine Glucose Lactic Acid 2.50 H* Calcium Ferritin Total Bilirubin Direct Bilirubin AST ALT Alkaline Phosphatase Lactate Dehydrogenase 447 H C-Reactive Protein 2.90 H Total Protein Albumin Arterial Blood Glucose Coronavirus (PCR) 12/12/20 12/12/20 12/12/20 05:01 05:01 05:01 WBC 15.3 H RBC Hgb 8.1 L Hct 28.4 L MCV 57 L MCH 16 L MCHC 29 L RDW 25.0 H Plt Count 809 H [place] # (Auto) Seg Neutrophils % Seg Neuts % (Manual) 83.0 H Lymphocytes % (Manual) 10.0 L Nucleated RBC % 2.0 H Seg Neutrophils # Seg Neutrophils # Man 12.7 H Lymphocytes # (Manual) Monocytes # (Manual) 1.1 H PT INR D-Dimer 752.84 H POC ABG pO2 ABG Hemoglobin ABG Oxyhemoglobin ABG Potassium ABG Chloride ABG Glucose Potassium Chloride BUN 20 H Creatinine 0.4 L Glucose 120 H Lactic Acid Calcium Ferritin Total Bilirubin Direct Bilirubin AST 121 H ALT 469 H Alkaline Phosphatase 633 H Lactate Dehydrogenase 511 H C-Reactive Protein 3.50 H Total Protein Albumin 3.1 L Arterial Blood Glucose Coronavirus (PCR) 12/13/20 12/13/20 12/14/20 07:25 07:25 13:54 WBC 11.2 H RBC Hgb 7.2 L Hct 24.3 L MCV 57 L MCH 17 L MCHC RDW 25.5 H Plt Count 634 H [place] # (Auto) Seg Neutrophils % Seg Neuts % (Manual) Lymphocytes % (Manual) Nucleated RBC % Seg Neutrophils # Seg Neutrophils # Man Lymphocytes # (Manual) Monocytes # (Manual) PT INR D-Dimer POC ABG pO2 ABG Hemoglobin ABG Oxyhemoglobin ABG Potassium ABG Chloride ABG Glucose Potassium Chloride 107.6 H BUN 25 H Creatinine 0.4 L Glucose 132 H Lactic Acid Calcium Ferritin Total Bilirubin Direct Bilirubin 0.3 H 0.4 H AST 72 H 115 H ALT 295 H 318 H Alkaline Phosphatase 466 H 617 H Lactate Dehydrogenase C-Reactive Protein Total Protein 6.1 L Albumin 2.7 L 3.0 L Arterial Blood Glucose Coronavirus (PCR) 12/14/20 12/14/20 12/15/20 13:54 13:54 04:37 WBC RBC Hgb Hct MCV MCH MCHC RDW Plt Count [place] # (Auto) Seg Neutrophils % Seg Neuts % (Manual) Lymphocytes % (Manual) Nucleated RBC % Seg Neutrophils # Seg Neutrophils # Man Lymphocytes # (Manual) Monocytes # (Manual) PT INR D-Dimer 806.70 H POC ABG pO2 ABG Hemoglobin ABG Oxyhemoglobin ABG Potassium ABG Chloride ABG Glucose Potassium Chloride BUN Creatinine Glucose Lactic Acid Calcium Ferritin Total Bilirubin Direct Bilirubin 0.3 H AST 97 H ALT 281 H Alkaline Phosphatase 553 H Lactate Dehydrogenase C-Reactive Protein 1.70 H Total Protein 6.2 L Albumin 2.8 L Arterial Blood Glucose Coronavirus (PCR) 12/15/20 04:37 WBC RBC Hgb Hct MCV MCH MCHC RDW Plt Count [place] # (Auto) Seg Neutrophils % Seg Neuts % (Manual) Lymphocytes % (Manual) Nucleated RBC % Seg Neutrophils # Seg Neutrophils # Man Lymphocytes # (Manual) Monocytes # (Manual) PT INR D-Dimer 660.07 H POC ABG pO2 ABG Hemoglobin ABG Oxyhemoglobin ABG Potassium ABG Chloride ABG Glucose Potassium Chloride BUN Creatinine Glucose Lactic Acid Calcium Ferritin Total Bilirubin Direct Bilirubin AST ALT Alkaline Phosphatase Lactate Dehydrogenase C-Reactive Protein Total Protein Albumin Arterial Blood Glucose Coronavirus (PCR) Allied health notes reviewed: nursing
[2020-12-16] MEDS: HYDROmorphone 1 MG/1 ML INJ IV PRN (13:15)
--- NOTE | 2020-12-16 15:19 | Progress Note ---
Assessment and Plan Assessment and plan: 50-year-old female with history of hypertension was brought to the emergency room because of shortness of breath, cough, fever, Covid positive. Patient was diagnosed with COVID-19 1 week ago. Since then patient complained of worsening shortness of breath. Patient states she has not seen a physician for this. Patient states she does not take any medicine. Patient states the fever is fluctuating. Patient states it responds well to Tylenol. Patient states her cough is dry. Patient states she has not been vaccinated for COVID-19. Patient complains of chills. Patient denies nausea vomiting. Patient denies diarrhea. Patient denies abdominal pain. Patient denies chest pain. Patient's ox saturation was 82%. Patient was found to have acute respiratory failure. Patient WBC 17.0 and chest x-ray shows pneumonia secondary to Covid. Patient was put on BiPAP (1) Acute hypoxic respiratory failure 2/2 Covid 19 PNA pulmonary following and note reviewed Patient is on 35% Fio2 with O2 sat 93-94% (2) COVID-19 Current Visit: Yes Status: Acute Plan to address problem: ID note reviewed inflammatory markers reviewed cont. Dexamethasone x 10 days Cleared for starting remdesivir as LFTs < 10 times normal monitor markers 3. Severe sepsis procalcitonin results reviewed ID note reviewed cont. ceftriaxone and azithromycin Leucocytosis: 2/2 sepsis monitor CBC (4) Hypertension Current Visit: Yes Status: Acute Plan to address problem: Hydralazine 10 mg IV every 6 hours as needed she has no hx of HTN 5) Transaminitis: results reviewed cont. to monitor (6) anemia (7) DVT prophylaxis Current Visit: Yes Status: Acute Plan to address problem: will stop heparin and start on lovenox. Pepcid 20 mg p.o. twice daily for GI prophylaxis. Patient is a full code. 12/09/2020 -Patient was on BiPAP with FiO2 of 100%, patient desaturated when she was off BiPAP momentarily. I put her on D5 half-normal saline for maintenance. Titrate oxygen as tolerated. -Pulmonary consulted, ID consulted. -Patient has elevated ALT and AST and is not a candidate for remdesivir. -Patient is on IV antibiotics and procalcitonin level is elevated, ID recommends to continue with IV antibiotics. ID said patient is not a candidate for Actemra because of the infection with elevated procalcitonin level. 12/10; patient is on BiPAP, on Decadron. Remdesivir discontinued due to elevated liver enzymes. Patient not a candidate for Actemra because patient has elevated procalcitonin level. Continue with IV antibiotics. Prognosis is guarded. 12/11patient is A&O,A&O, c/o weakness and feels tired. C/O shortness of breath. requesting stool sofner. She denies f/c/CP/N/abd. pain 12/12: Continue supportive care. Wean oxygen as tolerated. Will obtain pulmonary consult will evaluate for possible Lasix therapy. Noted anemia with hemoglobin of 8.1 will monitor this closely. D-dimer is elevated so is AST and ALT and alk phos. This may preclude use of medications such as remdesivir which has been discontinued in relation to this. Patient remains critically ill. 12/13: Patient showing some improve, still with BiPAP requirements, continue supportive care, continued sterods, Remdesivr per ID, monitor renal function closely and LFT. wean oxygen as tolerated. Prognosis guarded 12/14: Patient seen and examined, she is showing good improvement, down to 10 liters except that she gets anxious. I spoke extensively with the family and updated them on her clinical condition 12/15: Patient continues to show good improvement, weaned down to 5L of oxygen with saturation of 99%. Will transfer to Medical floor and continue current management. 12/16: Patient was doing well this am, on 5 liters and sating 95%, later desated and was placed back on BIPAP. reassurance and counselling provided The high probability of a clinically significant, sudden or life threatening deterioration of the [PULMONARY] system(s) required my full and direct attention, intervention and personal management. The aggregate critical care time was [35] minutes. This time is in addition to time spent performing reported procedures but includes the following: [X] Data Review and interpretation [X] Patient assessment and monitoring of vital signs [X] Documentation [X] Medication orders and management History Interval history: Patient seen and examined showing some improvement, intermittent anxiety, down to 5 liters with saturation of 95% but later desatted and was anxious requiring going back on the high flow Hospitalist Physical - Physical exam Narrative exam: VITAL SIGNS: Reviewed. GENERAL: The patient appears normally developed, otherwise short of breath, vital signs as documented. HEAD: No signs of head trauma. EYES: Pupils are equal. Extraocular motions intact. EARS: Hearing grossly intact. MOUTH: Oropharynx is normal. NECK: No adenopathy, no JVD. CHEST: Chest with diminshed breath sounds bilaterally. No wheezes, rales, or rhonchi. CARDIAC: Regular rate and rhythm. S1 and S2, without murmurs, gallops, or rubs. VASCULAR: No Edema. Peripheral pulses normal and equal in all extremities. ABDOMEN: Soft, non tender and non distended. No rebound or guarding, and no masses palpated. Bowel Sounds normal. MUSCULOSKELETAL: Good range of motion of all major joints. Extremities without clubbing, cyanosis or edema. NEUROLOGIC EXAM: Alert and oriented x 3 No focal sensory or strength deficits. Speech normal. Follows commands. PSYCHIATRIC: Mood normal but intermittently anxious, not at the moment SKIN: detail exam as documented in skin assessment - Constitutional Vitals: Temp Pulse Resp BP Pulse Ox 97.8 F 94 H 45 H 157/97 66 L 12/16/20 12:00 12/16/20 14:00 12/16/20 14:00 12/16/20 14:00 12/16/20 14:00 General appearance: Present: no acute distress Results - Labs CBC & Chem 7: 12/13/20 07:25 12/13/20 07:25 Labs: Laboratory Last Values WBC 11.2 K/mm3 (4.5-11.0) H 12/13/20 07:25 RBC 4.26 M/mm3 (3.65-5.03) 12/13/20 07:25 Hgb 7.2 gm/dl (10.1-14.3) L 12/13/20 07:25 Hct 24.3 % (30.3-42.9) L 12/13/20 07:25 MCV 57 fl (79-97) L 12/13/20 07:25 MCH 17 pg (28-32) L 12/13/20 07:25 MCHC 30 % (30-34) 12/13/20 07:25 RDW 25.5 % (13.2-15.2) H 12/13/20 07:25 Plt Count 634 K/mm3 (140-440) H 12/13/20 07:25 [place] % (Auto) 6.0 % (0.0-7.3) 12/09/20 04:33 [place] # (Auto) 1.3 K/mm3 (0.0-0.8) H 12/09/20 04:33 Add Manual Diff Complete 12/12/20 05:01 Total Counted 100 12/12/20 05:01 Seg Neutrophils % 84.3 % (40.0-70.0) H 12/09/20 04:33 Seg Neuts % (Manual) 83.0 % (40.0-70.0) H 12/12/20 05:01 Band Neutrophils % 3.0 % 12/09/20 04:33 Lymphocytes % (Manual) 10.0 % (13.4-35.0) L 12/12/20 05:01 Monocytes % (Manual) 7.0 % (0.0-7.3) 12/12/20 05:01 Metamyelocytes % 1.0 % 12/08/20 00:15 Nucleated RBC % 2.0 % (0.0-0.9) H 12/12/20 05:01 Seg Neutrophils # 17.8 K/mm3 (1.8-7.7) H 12/09/20 04:33 Seg Neutrophils # Man 12.7 K/mm3 (1.8-7.7) H 12/12/20 05:01 Band Neutrophils # 0.0 K/mm3 12/12/20 05:01 Lymphocytes # (Manual) 1.5 K/mm3 (1.2-5.4) 12/12/20 05:01 Abs React Lymphs (Man) 0.0 K/mm3 12/12/20 05:01 Monocytes # (Manual) 1.1 K/mm3 (0.0-0.8) H 12/12/20 05:01 Eosinophils # (Manual) 0.0 K/mm3 (0.0-0.4) 12/12/20 05:01 Basophils # (Manual) 0.0 K/mm3 (0.0-0.1) 12/12/20 05:01 Metamyelocytes # 0.0 K/mm3 12/12/20 05:01 Myelocytes # 0.0 K/mm3 12/12/20 05:01 Promyelocytes # 0.0 K/mm3 12/12/20 05:01 Blast Cells # 0.0 K/mm3 12/12/20 05:01 WBC Morphology Not Reportable 12/12/20 05:01 Hypersegmented Neuts Not Reportable 12/12/20 05:01 Hyposegmented Neuts Not Reportable 12/12/20 05:01 Hypogranular Neuts Not Reportable 12/12/20 05:01 Smudge Cells Not Reportable 12/12/20 05:01 Toxic Granulation Not Reportable 12/12/20 05:01 Toxic Vacuolation Not Reportable 12/12/20 05:01 Dohle Bodies Not Reportable 12/12/20 05:01 Pelger-Huet Anomaly Not Reportable 12/12/20 05:01 Lauryn Rods Not Reportable 12/12/20 05:01 Platelet Estimate Consistent w auto 12/12/20 05:01 Clumped Platelets Not Reportable 12/12/20 05:01 Plt Clumps, EDTA Not Reportable 12/12/20 05:01 Large Platelets Not Reportable 12/12/20 05:01 Giant Platelets Not Reportable 12/12/20 05:01 Platelet Satelliting Not Reportable 12/12/20 05:01 Plt Morphology Comment Not Reportable 12/12/20 05:01 RBC Morphology Not Reportable 12/12/20 05:01 Dimorphic RBCs Not Reportable 12/12/20 05:01 Polychromasia Not Reportable 12/12/20 05:01 Hypochromasia 3+ 12/12/20 05:01 Poikilocytosis 1+ 12/12/20 05:01 Anisocytosis 2+ 12/12/20 05:01 Microcytosis 2+ 12/12/20 05:01 Macrocytosis Not Reportable 12/12/20 05:01 Spherocytes Not Reportable 12/12/20 05:01 Pappenheimer Bodies Not Reportable 12/12/20 05:01 Sickle Cells Not Reportable 12/12/20 05:01 Target Cells Not Reportable 12/12/20 05:01 Tear Drop Cells Few 12/12/20 05:01 Ovalocytes Few 12/12/20 05:01 Helmet Cells Not Reportable 12/12/20 05:01 [place] Bodies Not Reportable 12/12/20 05:01 [place] Rings Not Reportable 12/12/20 05:01 Jens Cells Not Reportable 12/12/20 05:01 Bite Cells Not Reportable 12/12/20 05:01 Crenated Cell Not Reportable 12/12/20 05:01 Elliptocytes Few 12/12/20 05:01 Acanthocytes (Spur) Not Reportable 12/12/20 05:01 Rouleaux Not Reportable 12/12/20 05:01 Hemoglobin C Crystals Not Reportable 12/12/20 05:01 Schistocytes Not Reportable 12/12/20 05:01 Malaria parasites Not Reportable 12/12/20 05:01 Brant Bodies Not Reportable 12/12/20 05:01 Hem Pathologist Commnt No 12/12/20 05:01 PT 16.4 Sec. (12.2-14.9) H 12/08/20 00:15 INR 1.27 (0.87-1.13) H 12/08/20 00:15 APTT 29.6 Sec. (24.2-36.6) 12/08/20 00:15 D-Dimer 660.07 ng/mlDDU (0-234) H 12/15/20 04:37 ABG pH 7.449 (7.320-7.450) 12/10/20 08:45 POC ABG pCO2 36.5 mmHg (32.0-48.0) 12/10/20 08:45 POC ABG pO2 64.5 mmHg (83-108) L 12/10/20 08:45 POC ABG HCO3 24.7 12/10/20 08:45 ABG O2 Saturation 91.0 (0-100) 12/10/20 08:45 POC ABG Base Excess 0.8 12/10/20 08:45 ABG Hemoglobin 7.6 (12.0-17.5) L 12/10/20 08:45 ABG Oxyhemoglobin 90.2 (94-98) L 12/10/20 08:45 ABG Methemoglobin 0.1 (0.0-1.5) 12/10/20 08:45 ABG Sodium 139.9 mmol/L (136.0-145.0) 12/10/20 08:45 ABG Potassium 3.3 mmol/L (3.40-4.50) L 12/10/20 08:45 ABG Chloride 108.0 mmol/L (98-107) H 12/10/20 08:45 ABG Glucose 126 mg/dL (65-95) H 12/10/20 08:45 Carboxyhemoglobin 0.8 (0.5-1.5) 12/10/20 08:45 FiO2 % 35.0 12/10/20 08:45 Sodium 141 mmol/L (137-145) 12/13/20 07:25 Potassium 4.5 mmol/L (3.6-5.0) 12/13/20 07:25 Chloride 107.6 mmol/L (98-107) H 12/13/20 07:25 Carbon Dioxide 23 mmol/L (22-30) 12/13/20 07:25 Anion Gap 15 mmol/L 12/13/20 07:25 BUN 25 mg/dL (7-17) H 12/13/20 07:25 Creatinine 0.4 mg/dL (0.6-1.2) L 12/13/20 07:25 Estimated GFR > 60 ml/min 12/13/20 07:25 BUN/Creatinine Ratio 63 % 12/13/20 07:25 Glucose 132 mg/dL (65-100) H 12/13/20 07:25 Lactic Acid 2.50 mmol/L (0.7-2.0) H* 12/11/20 12:38 Calcium 8.4 mg/dL (8.4-10.2) 12/13/20 07:25 Ferritin 147.8 ng/mL (10.0-200.0) 12/15/20 04:37 Total Bilirubin 0.60 mg/dL (0.1-1.2) 12/15/20 04:37 Direct Bilirubin 0.3 mg/dL (0-0.2) H 12/15/20 04:37 Indirect Bilirubin 0.3 mg/dL 12/15/20 04:37 AST 97 units/L (5-40) H 12/15/20 04:37 ALT 281 units/L (7-56) H 12/15/20 04:37 Alkaline Phosphatase 553 units/L (35-129) H 12/15/20 04:37 Lactate Dehydrogenase 511 units/L (91-180) H 12/12/20 05:01 C-Reactive Protein 1.20 mg/dL (0.00-1.30) 12/15/20 04:37 Total Protein 6.2 g/dL (6.3-8.2) L 12/15/20 04:37 Albumin 2.8 g/dL (3.9-5) L 12/15/20 04:37 Albumin/Globulin Ratio 0.8 % 12/15/20 04:37 Procalcitonin 0.83 ng/mL (<0.15) 12/15/20 04:37 Arterial Blood Glucose 126 mg/dL (65-95) H 12/10/20 08:45 Coronavirus (PCR) Positive (Negative) A 12/08/20 10:30 Hepatitis A IgM Ab Non-reactive (NonReactive) 12/13/20 07:25 Hep Bs Antigen Nonreactive (Negative) 12/13/20 07:25 Hep B Core IgM Ab Non-reactive (NonReactive) 12/13/20 07:25 Hepatitis C Antibody Non-reactive (NonReactive) 12/13/20 07:25 [place]/IV: Voiding Method Indwelling Catheter Active Medications - Current Medications Current Medications: Generic Name Dose Route Start Last Admin Trade Name Freq PRN Reason Stop Dose Admin Acetaminophen 650 mg 12/08/20 05:31 Acetaminophen 325 Mg Tab PO Q4H PRN Pain MILD(1-3)/Fever >100.5/[place] Albuterol 2.5 mg 12/08/20 05:31 Albuterol 2.5 Mg/3 Ml Nebu IH Q4HRT PRN Shortness Of Breath Alprazolam 0.25 mg 12/16/20 14:00 Alprazolam 0.25 Mg Tab PO 12/19/20 13:59 BID DARIAN Alprazolam 0.25 mg 12/16/20 13:09 Alprazolam 0.25 Mg Tab PO Q6H PRN Anxiety Ascorbic Acid 500 mg 12/09/20 10:00 12/16/20 09:35 Ascorbic Acid 500 Mg Tab PO 500 mg BID DARIAN Administration Cholecalciferol 1,000 unit 12/09/20 10:00 12/16/20 09:35 Cholecalciferol (Vit D3) 1000 Unit (25 Mcg) Tab PO 1,000 unit QDAY DARIAN Administration Dexamethasone 6 mg 12/08/20 10:00 12/16/20 09:35 Dexamethasone 4 Mg/Ml Vial IV 12/17/20 10:01 6 mg DAILY DARIAN Administration Enoxaparin Sodium 40 mg 12/14/20 10:00 12/16/20 09:36 Enoxaparin 40 Mg/0.4 Ml Inj SUB-Q 40 mg QDAY@1000 DARIAN Administration Protocol Famotidine 20 mg 12/08/20 10:00 12/16/20 09:35 Famotidine 20 Mg Tab PO 20 mg BID DARIAN Administration Guaifenesin 10 ml 12/14/20 15:00 12/15/20 20:58 Guaifenesin Dm 200/20 Mg Oral Liqd 10 Ml PO 10 ml Q4H PRN Administration Cough Hydromorphone HCl 0.5 mg 12/08/20 05:31 12/16/20 13:15 Hydromorphone 1 Mg/1 Ml Inj IV 0.5 mg Q3H PRN Administration Pain , Severe (7-10) Lisinopril 20 mg 12/15/20 19:00 12/16/20 09:35 Lisinopril 20 Mg Tab PO 20 mg QDAY DARIAN Administration Ondansetron HCl 4 mg 12/08/20 05:31 Ondansetron 4 Mg/2 Ml Inj IV Q8H PRN Nausea And Vomiting Oxycodone/Acetaminophen 1 tab 12/08/20 05:31 12/14/20 15:15 Oxycodone /Acetaminophen 5-325mg Tab PO 1 tab Q6H PRN Administration Pain, Moderate (4-6) Polyethylene Glycol 17 gm 12/11/20 15:53 Polyethylene Glycol 3350 17 Gm Powder PO QDAY PRN Constipation Sodium Chloride 10 ml 12/08/20 10:00 12/16/20 09:35 Sodium Chloride 0.9% 10 Ml Flush Syringe IV 10 ml BID DARIAN Administration Sodium Chloride 10 ml 12/08/20 05:31 Sodium Chloride 0.9% 10 Ml Flush Syringe IV PRN PRN LINE FLUSH Zinc Sulfate 220 mg 12/09/20 10:00 12/16/20 09:35 Zinc Sulfate 220 Mg Cap PO 220 mg QDAY DARIAN Administration
[2020-12-16] MEDS: ALPRAZolam 0.25 MG TAB PO SCH ×2 (15:38→22:01)
[2020-12-16] MEDS: oxyCODONE /ACETAMINOPHEN 5-325MG TAB PO PRN (22:14)
[2020-12-17] MEDS: FAMOTIDINE 20 MG TAB PO SCH ×2 (09:30→21:48)
[2020-12-17] MEDS: ALPRAZolam 0.25 MG TAB PO SCH ×2 (09:30→21:49)
[2020-12-17] MEDS: LISINOPRIL 20 MG TAB PO SCH (09:30)
[2020-12-17] MEDS: ZINC SULFATE 220 MG CAP PO SCH (09:30)
[2020-12-17] MEDS: CHOLECALCIFEROL (VIT D3) 1000 UNIT (25 mcg) TAB PO SCH (09:30)
[2020-12-17] MEDS: ASCORBIC ACID 500 MG TAB PO SCH ×2 (09:31→21:49)
[2020-12-17] MEDS: ENOXAPARIN 40 MG/0.4 ML INJ SUB-Q SCH (09:31)
[2020-12-17] MEDS: dexAMETHasone 4 MG/ML VIAL IV SCH (09:31)
--- NOTE | 2020-12-17 11:20 | Progress Note ---
Assessment and Plan Cultures: Blood culture no growth so far COVID-19 PCR: Positive A/P: 50-year-old female past medical history hypertension admitted with COVID-19 #Sepsis: With elevated lactate: Likely due to hypoxia from COVID-19. #Severe COVID-19 pneumonia: Patient presented with a week of symptoms, chest x- ray with diffuse bilateral infiltrates. No evidence of pulmonary embolism on CT. Very elevated markers. With high procalcitonin, not an Actemra candidate. #Acute hypoxemic respiratory failure: on BiPAP/HFNC. #Elevated liver enzymes: ?Secondary to COVID-19. Downtrending. Hepatitis panel: Nonreactive. RUQ ultrasound showed borderline biliary dilatation, no obstruction or gallstones identified. Recs: -completed 10 days of steroids, OK if pulmonary wishes to extend course -completed remdesivir -Anticoagulation per hospital protocol -guarded prognosis ID will sign off. Please call with questions. Harriett Enamorado MD, FACP [facility], [place], [facility] ([facility] O: [phone] F: [phone] Subjective Date of service: 12/17/20 Principal diagnosis: Ac hypoxemic resp failure; COVID-19 infxn; Pneumonia; Sepsis Interval history: Afebrile. Remains on high flow nasal cannula. Completed steroids. Objective - Exam Narrative Exam: Physical Exam (reviewed in chart to minimize risk of transmission) Constitutional: deferred Head, Ears, Nose: deferred Eyes: deferred Neck: deferred Oral: deferred Cardiovascular: deferred Respiratory: deferred GI: deferred Musculoskeletal: deferred Skin: deferred Hem/Lymphatic: deferred Psych: deferred Neurological: deferred - Constitutional Vitals: Vital Signs Temp Pulse Resp BP Pulse Ox 98.4 F 102 H 40 H 168/103 92 12/17/20 07:52 12/17/20 10:00 12/17/20 10:00 12/17/20 10:00 12/17/20 10:00 Temperature -Last 24 Hours Temperature 98.4 F Temperature 98.1 F Temperature 98.9 F Temperature 97.9 F Temperature 97.1 F Temperature 97.8 F - Labs CBC & Chem 7: 12/13/20 07:25 12/13/20 07:25
--- NOTE | 2020-12-17 12:25 | Progress Note ---
Assessment and Plan Acute hypoxemic respiratory failure COVID-19 infection Bilateral pneumonia Elevated serum transaminases Sepsis Anemia that is microcytic Thrombocytosis Lactic acidosis - continue Xanax 0.125mg p.o. bid X 3 days (also 0.25 mg p.o. q6h prn Anxiety) - continue NIV qhs with prn daytime use - continue awake proning - watch closely but continue care as below; - dopplers negative for VTE - continue NIV qhs with prn daytime use - trend LFT's - continue aspiration precautions - continue to wean supplemental oxygen for target O2 sat's > 92% acutely - bronchodilators with pulmonary hygiene per RT - avoid nephrotoxins, renally dose all medications - avoid benzodiazepine's, reduce the possibility of delirium - complete antiinfective's per ID rec's - prn analgesia per pain score - Maintenance of sleep-wake cycle, avoid delirium - G.I. & VTE prophylaxis - PT/OT/ROM exercises - continue mobility protocols for pressure ulcer prophylaxis - Monitor hemodynamics closely - continue other care per attending / other consultants - discharge planning ongoing concurrently COVID SPECIFIC INTERVENTIONS - Remdesivir as per ID/Pulmonary developed protocols (not a candidate re: LFT's) - continue systemic steroids for severe COVID-19 infection - follow repeat COVID tests results - zinc and vitamin C supplementation - Monitor inflammatory markers per facility protocol - ferritin, Ddimer, CRP - therapeutic anticoagulation per system Protocol based on d-dimer and clinical considerations (VTE prophylaxis) - Continue contact and airborne isolation .... Re-evaluate in am & prn CONDITION: CRITICAL PROGNOSIS: GUARDED CODE STATUS: FULL CODE The high probability of a clinically significant, sudden or life-threatening deterioration of the [respiratory, cardiovascular & neurologic] system(s) required my full and direct attention, intervention and personal management. The aggregate critical care time was [34] minutes without overlap. Time includes spent on; [x] Data Review and interpretation [x] Patient assessment and monitoring of vital signs [x] Documentation [x] Medication orders and management Subjective Date of service: 12/17/20 Principal diagnosis: Ac hypoxemic resp failure; COVID-19 infxn; Pneumonia; S epsis Interval history: Patient is seen today for: Acute hypoxemic respiratory failure; COVID-19 infection; Bilateral pneumonia; Elevated serum transaminases; Sepsis; Lactic acidosis Seen and examined at bedside; 24hour events reviewed; nursing and respiratory care staff consulted; no adverse overnight events reported to me; resting in bed; still SOB; FiO2 back up to 75%; using BIPAP as prescribed; anxiety better Objective Vital Signs - 12hr 12/17/20 12/17/20 12/17/20 01:00 02:00 03:00 Temperature Pulse Rate 90 105 H 94 H Pulse Rate [ From Monitor] Respiratory Rate Blood Pressure 131/74 132/74 144/90 O2 Sat by Pulse 99 97 100 Oximetry 12/17/20 12/17/20 12/17/20 03:49 04:00 05:00 Temperature 98.1 F Pulse Rate 91 H 90 Pulse Rate [ 91 H From Monitor] Respiratory 28 H Rate Blood Pressure 135/82 127/74 O2 Sat by Pulse 100 93 Oximetry 12/17/20 12/17/20 12/17/20 06:00 07:00 07:20 Temperature Pulse Rate 93 H 101 H Pulse Rate [ From Monitor] Respiratory Rate Blood Pressure 148/91 149/99 O2 Sat by Pulse 95 96 92 Oximetry 12/17/20 12/17/20 12/17/20 07:52 08:00 09:00 Temperature 98.4 F Pulse Rate 82 Pulse Rate [ 94 H From Monitor] Respiratory 30 H Rate Blood Pressure 144/93 155/98 O2 Sat by Pulse 96 89 Oximetry 12/17/20 10:00 Temperature Pulse Rate 102 H Pulse Rate [ From Monitor] Respiratory 40 H Rate Blood Pressure 168/103 O2 Sat by Pulse 92 Oximetry Constitutional: appears uncomfortable, other (middle aged female with mildly increased respiratory effort at rest) Eyes: non-icteric ENT: oropharynx moist Neck: supple, no lymphadenopathy, no JVD Effort: mildly labored Ascultation: Bilateral: rhonchi Percussion: Bilateral: not dull Cardiovascular: regular rate and rhythm Gastrointestinal: normoactive bowel sounds, soft, non-tender, non-distended Integumentary: normal Extremities: no cyanosis, no edema, pulses normal, no ischemia or petechiae Neurologic: normal mental status, non-focal exam, pupils equal and round, CN II- XII normal, motor strength normal and Psychiatric: mood appropriate, anxious CBC and BMP: 12/13/20 07:25 12/13/20 07:25 ABG, PT/INR, D-dimer: ABG ABG pH 7.449 (7.320-7.450) 12/10/20 08:45 POC ABG pCO2 36.5 mmHg (32.0-48.0) 12/10/20 08:45 POC ABG pO2 64.5 mmHg (83-108) L 12/10/20 08:45 POC ABG HCO3 24.7 12/10/20 08:45 ABG O2 Saturation 91.0 (0-100) 12/10/20 08:45 PT/INR, D-dimer PT 16.4 Sec. (12.2-14.9) H 12/08/20 00:15 INR 1.27 (0.87-1.13) H 12/08/20 00:15 D-Dimer 660.07 ng/mlDDU (0-234) H 12/15/20 04:37 Abnormal lab findings: Abnormal Labs 12/08/20 12/08/20 12/08/20 00:15 00:15 00:15 WBC 17.0 H RBC 5.40 H Hgb 8.3 L Hct 29.7 L MCV 55 L MCH 16 L MCHC 28 L RDW 25.0 H Plt Count 464 H [place] # (Auto) Seg Neutrophils % Seg Neuts % (Manual) 92.0 H Lymphocytes % (Manual) 1.0 L Nucleated RBC % Seg Neutrophils # Seg Neutrophils # Man 15.6 H Lymphocytes # (Manual) 0.2 L Monocytes # (Manual) PT 16.4 H INR 1.27 H D-Dimer 1129.87 H POC ABG pO2 ABG Hemoglobin ABG Oxyhemoglobin ABG Potassium ABG Chloride ABG Glucose Potassium 3.1 L Chloride BUN Creatinine Glucose 128 H Lactic Acid Calcium 8.3 L Ferritin Total Bilirubin 1.90 H Direct Bilirubin AST 309 H ALT 1384 H Alkaline Phosphatase 440 H Lactate Dehydrogenase C-Reactive Protein Total Protein Albumin 3.2 L Arterial Blood Glucose Coronavirus (PCR) 12/08/20 12/08/20 12/08/20 00:15 00:15 00:15 WBC RBC Hgb Hct MCV MCH MCHC RDW Plt Count [place] # (Auto) Seg Neutrophils % Seg Neuts % (Manual) Lymphocytes % (Manual) Nucleated RBC % Seg Neutrophils # Seg Neutrophils # Man Lymphocytes # (Manual) Monocytes # (Manual) PT INR D-Dimer POC ABG pO2 ABG Hemoglobin ABG Oxyhemoglobin ABG Potassium ABG Chloride ABG Glucose Potassium Chloride BUN Creatinine Glucose Lactic Acid 2.30 H* Calcium Ferritin 289.8 H Total Bilirubin Direct Bilirubin AST ALT Alkaline Phosphatase Lactate Dehydrogenase 608 H C-Reactive Protein 20.70 H Total Protein Albumin Arterial Blood Glucose Coronavirus (PCR) 12/08/20 12/08/20 12/08/20 02:16 09:49 10:30 WBC RBC Hgb Hct MCV MCH MCHC RDW Plt Count [place] # (Auto) Seg Neutrophils % Seg Neuts % (Manual) Lymphocytes % (Manual) Nucleated RBC % Seg Neutrophils # Seg Neutrophils # Man Lymphocytes # (Manual) Monocytes # (Manual) PT INR D-Dimer POC ABG pO2 ABG Hemoglobin ABG Oxyhemoglobin ABG Potassium ABG Chloride ABG Glucose Potassium Chloride BUN Creatinine Glucose Lactic Acid 2.50 H* 2.40 H* Calcium Ferritin Total Bilirubin Direct Bilirubin AST ALT Alkaline Phosphatase Lactate Dehydrogenase C-Reactive Protein Total Protein Albumin Arterial Blood Glucose Coronavirus (PCR) Positive A 12/09/20 12/09/20 12/09/20 04:33 04:33 09:13 WBC 21.0 H RBC 5.12 H Hgb 8.2 L Hct 29.1 L MCV 57 L MCH 16 L MCHC 28 L RDW 24.6 H Plt Count 509 H [place] # (Auto) 1.3 H Seg Neutrophils % 84.3 H Seg Neuts % (Manual) 93.0 H Lymphocytes % (Manual) 2.0 L Nucleated RBC % 2.0 H Seg Neutrophils # 17.8 H Seg Neutrophils # Man 19.5 H Lymphocytes # (Manual) 0.4 L Monocytes # (Manual) PT INR D-Dimer POC ABG pO2 ABG Hemoglobin ABG Oxyhemoglobin ABG Potassium ABG Chloride ABG Glucose Potassium 3.5 L Chloride BUN 30 H 29 H Creatinine Glucose 190 H 129 H Lactic Acid Calcium Ferritin Total Bilirubin Direct Bilirubin AST 276 H ALT 867 H Alkaline Phosphatase 685 H Lactate Dehydrogenase C-Reactive Protein Total Protein Albumin 3.1 L Arterial Blood Glucose Coronavirus (PCR) 12/09/20 12/10/20 12/10/20 19:16 05:04 05:04 WBC RBC Hgb Hct MCV MCH MCHC RDW Plt Count [place] # (Auto) Seg Neutrophils % Seg Neuts % (Manual) Lymphocytes % (Manual) Nucleated RBC % Seg Neutrophils # Seg Neutrophils # Man Lymphocytes # (Manual) Monocytes # (Manual) PT INR D-Dimer POC ABG pO2 ABG Hemoglobin ABG Oxyhemoglobin ABG Potassium ABG Chloride ABG Glucose Potassium 3.4 L Chloride BUN 25 H Creatinine Glucose 184 H Lactic Acid 2.80 H* 3.30 H* Calcium 7.9 L Ferritin Total Bilirubin Direct Bilirubin AST 277 H ALT 722 H Alkaline Phosphatase 773 H Lactate Dehydrogenase C-Reactive Protein Total Protein Albumin 2.9 L Arterial Blood Glucose Coronavirus (PCR) 12/10/20 12/10/20 12/10/20 08:11 08:45 11:15 WBC RBC Hgb Hct MCV MCH MCHC RDW Plt Count [place] # (Auto) Seg Neutrophils % Seg Neuts % (Manual) Lymphocytes % (Manual) Nucleated RBC % Seg Neutrophils # Seg Neutrophils # Man Lymphocytes # (Manual) Monocytes # (Manual) PT INR D-Dimer POC ABG pO2 64.5 L ABG Hemoglobin 7.6 L ABG Oxyhemoglobin 90.2 L ABG Potassium 3.3 L ABG Chloride 108.0 H ABG Glucose 126 H Potassium Chloride BUN Creatinine Glucose Lactic Acid 2.10 H* 2.40 H* Calcium Ferritin Total Bilirubin Direct Bilirubin AST ALT Alkaline Phosphatase Lactate Dehydrogenase C-Reactive Protein Total Protein Albumin Arterial Blood Glucose 126 H Coronavirus (PCR) 12/10/20 12/10/20 12/11/20 13:36 19:13 00:49 WBC RBC Hgb Hct MCV MCH MCHC RDW Plt Count [place] # (Auto) Seg Neutrophils % Seg Neuts % (Manual) Lymphocytes % (Manual) Nucleated RBC % Seg Neutrophils # Seg Neutrophils # Man Lymphocytes # (Manual) Monocytes # (Manual) PT INR D-Dimer POC ABG pO2 ABG Hemoglobin ABG Oxyhemoglobin ABG Potassium ABG Chloride ABG Glucose Potassium 3.4 L Chloride BUN Creatinine Glucose Lactic Acid 3.40 H* 2.30 H* Calcium Ferritin Total Bilirubin Direct Bilirubin AST ALT Alkaline Phosphatase Lactate Dehydrogenase C-Reactive Protein Total Protein Albumin Arterial Blood Glucose Coronavirus (PCR) 12/11/20 12/11/20 12/11/20 05:34 05:34 10:06 WBC RBC Hgb Hct MCV MCH MCHC RDW Plt Count [place] # (Auto) Seg Neutrophils % Seg Neuts % (Manual) Lymphocytes % (Manual) Nucleated RBC % Seg Neutrophils # Seg Neutrophils # Man Lymphocytes # (Manual) Monocytes # (Manual) PT INR D-Dimer POC ABG pO2 ABG Hemoglobin ABG Oxyhemoglobin ABG Potassium ABG Chloride ABG Glucose Potassium Chloride 108.1 H BUN Creatinine 0.4 L Glucose 160 H Lactic Acid 2.30 H* 2.90 H* Calcium 8.3 L Ferritin Total Bilirubin Direct Bilirubin AST 249 H ALT 589 H Alkaline Phosphatase 701 H Lactate Dehydrogenase C-Reactive Protein Total Protein 5.9 L Albumin 3.0 L Arterial Blood Glucose Coronavirus (PCR) 12/11/20 12/11/20 12/11/20 12:38 12:38 12:38 WBC RBC Hgb Hct MCV MCH MCHC RDW Plt Count [place] # (Auto) Seg Neutrophils % Seg Neuts % (Manual) Lymphocytes % (Manual) Nucleated RBC % Seg Neutrophils # Seg Neutrophils # Man Lymphocytes # (Manual) Monocytes # (Manual) PT INR D-Dimer 725.41 H POC ABG pO2 ABG Hemoglobin ABG Oxyhemoglobin ABG Potassium ABG Chloride ABG Glucose Potassium Chloride BUN Creatinine Glucose Lactic Acid 2.50 H* Calcium Ferritin Total Bilirubin Direct Bilirubin AST ALT Alkaline Phosphatase Lactate Dehydrogenase 447 H C-Reactive Protein 2.90 H Total Protein Albumin Arterial Blood Glucose Coronavirus (PCR) 12/12/20 12/12/20 12/12/20 05:01 05:01 05:01 WBC 15.3 H RBC Hgb 8.1 L Hct 28.4 L MCV 57 L MCH 16 L MCHC 29 L RDW 25.0 H Plt Count 809 H [place] # (Auto) Seg Neutrophils % Seg Neuts % (Manual) 83.0 H Lymphocytes % (Manual) 10.0 L Nucleated RBC % 2.0 H Seg Neutrophils # Seg Neutrophils # Man 12.7 H Lymphocytes # (Manual) Monocytes # (Manual) 1.1 H PT INR D-Dimer 752.84 H POC ABG pO2 ABG Hemoglobin ABG Oxyhemoglobin ABG Potassium ABG Chloride ABG Glucose Potassium Chloride BUN 20 H Creatinine 0.4 L Glucose 120 H Lactic Acid Calcium Ferritin Total Bilirubin Direct Bilirubin AST 121 H ALT 469 H Alkaline Phosphatase 633 H Lactate Dehydrogenase 511 H C-Reactive Protein 3.50 H Total Protein Albumin 3.1 L Arterial Blood Glucose Coronavirus (PCR) 12/13/20 12/13/20 12/14/20 07:25 07:25 13:54 WBC 11.2 H RBC Hgb 7.2 L Hct 24.3 L MCV 57 L MCH 17 L MCHC RDW 25.5 H Plt Count 634 H [place] # (Auto) Seg Neutrophils % Seg Neuts % (Manual) Lymphocytes % (Manual) Nucleated RBC % Seg Neutrophils # Seg Neutrophils # Man Lymphocytes # (Manual) Monocytes # (Manual) PT INR D-Dimer POC ABG pO2 ABG Hemoglobin ABG Oxyhemoglobin ABG Potassium ABG Chloride ABG Glucose Potassium Chloride 107.6 H BUN 25 H Creatinine 0.4 L Glucose 132 H Lactic Acid Calcium Ferritin Total Bilirubin Direct Bilirubin 0.3 H 0.4 H AST 72 H 115 H ALT 295 H 318 H Alkaline Phosphatase 466 H 617 H Lactate Dehydrogenase C-Reactive Protein Total Protein 6.1 L Albumin 2.7 L 3.0 L Arterial Blood Glucose Coronavirus (PCR) 12/14/20 12/14/20 12/15/20 13:54 13:54 04:37 WBC RBC Hgb Hct MCV MCH MCHC RDW Plt Count [place] # (Auto) Seg Neutrophils % Seg Neuts % (Manual) Lymphocytes % (Manual) Nucleated RBC % Seg Neutrophils # Seg Neutrophils # Man Lymphocytes # (Manual) Monocytes # (Manual) PT INR D-Dimer 806.70 H POC ABG pO2 ABG Hemoglobin ABG Oxyhemoglobin ABG Potassium ABG Chloride ABG Glucose Potassium Chloride BUN Creatinine Glucose Lactic Acid Calcium Ferritin Total Bilirubin Direct Bilirubin 0.3 H AST 97 H ALT 281 H Alkaline Phosphatase 553 H Lactate Dehydrogenase C-Reactive Protein 1.70 H Total Protein 6.2 L Albumin 2.8 L Arterial Blood Glucose Coronavirus (PCR) 12/15/20 04:37 WBC RBC Hgb Hct MCV MCH MCHC RDW Plt Count [place] # (Auto) Seg Neutrophils % Seg Neuts % (Manual) Lymphocytes % (Manual) Nucleated RBC % Seg Neutrophils # Seg Neutrophils # Man Lymphocytes # (Manual) Monocytes # (Manual) PT INR D-Dimer 660.07 H POC ABG pO2 ABG Hemoglobin ABG Oxyhemoglobin ABG Potassium ABG Chloride ABG Glucose Potassium Chloride BUN Creatinine Glucose Lactic Acid Calcium Ferritin Total Bilirubin Direct Bilirubin AST ALT Alkaline Phosphatase Lactate Dehydrogenase C-Reactive Protein Total Protein Albumin Arterial Blood Glucose Coronavirus (PCR) Chest x-ray: other (none today) Allied health notes reviewed: nursing
--- NOTE | 2020-12-17 13:44 | Progress Note ---
Assessment and Plan Assessment and plan: 50-year-old female with history of hypertension was brought to the emergency room because of shortness of breath, cough, fever, Covid positive. Patient was diagnosed with COVID-19 1 week ago. Since then patient complained of worsening shortness of breath. Patient states she has not seen a physician for this. Patient states she does not take any medicine. Patient states the fever is fluctuating. Patient states it responds well to Tylenol. Patient states her cough is dry. Patient states she has not been vaccinated for COVID-19. Patient complains of chills. Patient denies nausea vomiting. Patient denies diarrhea. Patient denies abdominal pain. Patient denies chest pain. Patient's ox saturation was 82%. Patient was found to have acute respiratory failure. Patient WBC 17.0 and chest x-ray shows pneumonia secondary to Covid. Patient was put on BiPAP (1) Acute hypoxic respiratory failure 2/2 Covid 19 PNA pulmonary following and note reviewed Patient is on 35% Fio2 with O2 sat 93-94% (2) COVID-19 Current Visit: Yes Status: Acute Plan to address problem: ID note reviewed inflammatory markers reviewed cont. Dexamethasone x 10 days Cleared for starting remdesivir as LFTs < 10 times normal monitor markers 3. Severe sepsis procalcitonin results reviewed ID note reviewed cont. ceftriaxone and azithromycin Leucocytosis: 2/2 sepsis monitor CBC (4) Hypertension Current Visit: Yes Status: Acute Plan to address problem: Hydralazine 10 mg IV every 6 hours as needed she has no hx of HTN 5) Transaminitis: results reviewed cont. to monitor (6) anemia (7) DVT prophylaxis Current Visit: Yes Status: Acute Plan to address problem: will stop heparin and start on lovenox. Pepcid 20 mg p.o. twice daily for GI prophylaxis. Patient is a full code. 12/09/2020 -Patient was on BiPAP with FiO2 of 100%, patient desaturated when she was off BiPAP momentarily. I put her on D5 half-normal saline for maintenance. Titrate oxygen as tolerated. -Pulmonary consulted, ID consulted. -Patient has elevated ALT and AST and is not a candidate for remdesivir. -Patient is on IV antibiotics and procalcitonin level is elevated, ID recommends to continue with IV antibiotics. ID said patient is not a candidate for Actemra because of the infection with elevated procalcitonin level. 12/10; patient is on BiPAP, on Decadron. Remdesivir discontinued due to elevated liver enzymes. Patient not a candidate for Actemra because patient has elevated procalcitonin level. Continue with IV antibiotics. Prognosis is guarded. 12/11patient is A&O,A&O, c/o weakness and feels tired. C/O shortness of breath. requesting stool sofner. She denies f/c/CP/N/abd. pain 12/12: Continue supportive care. Wean oxygen as tolerated. Will obtain pulmonary consult will evaluate for possible Lasix therapy. Noted anemia with hemoglobin of 8.1 will monitor this closely. D-dimer is elevated so is AST and ALT and alk phos. This may preclude use of medications such as remdesivir which has been discontinued in relation to this. Patient remains critically ill. 12/13: Patient showing some improve, still with BiPAP requirements, continue supportive care, continued sterods, Remdesivr per ID, monitor renal function closely and LFT. wean oxygen as tolerated. Prognosis guarded 12/14: Patient seen and examined, she is showing good improvement, down to 10 liters except that she gets anxious. I spoke extensively with the family and updated them on her clinical condition 12/15: Patient continues to show good improvement, weaned down to 5L of oxygen with saturation of 99%. Will transfer to Medical floor and continue current management. 12/16: Patient was doing well this am, on 5 liters and sating 95%, later desated and was placed back on BIPAP. reassurance and counselling provided 12/17: Patient remains on oxygen high flow. I believe that she will be able to be weaned if she if we can control her anxiety. Discussed with nursing staff at bedside also discussed with the patient. Will begin LTAC referral in a.m. The high probability of a clinically significant, sudden or life threatening deterioration of the [PULMONARY] system(s) required my full and direct attention, intervention and personal management. The aggregate critical care time was [35] minutes. This time is in addition to time spent performing reported procedures but includes the following: [X] Data Review and interpretation [X] Patient assessment and monitoring of vital signs [X] Documentation [X] Medication orders and management History Interval history: Patient seen and examined showing some improvement, intermittent anxiety, back on high flow but down to 70% with saturation of 94%. But still anxious asking for anxiety medication Hospitalist Physical - Physical exam Narrative exam: VITAL SIGNS: Reviewed. GENERAL: The patient appears normally developed, otherwise short of breath, vi radha signs as documented. HEAD: No signs of head trauma. EYES: Pupils are equal. Extraocular motions intact. EARS: Hearing grossly intact. MOUTH: Oropharynx is normal. NECK: No adenopathy, no JVD. CHEST: Chest with diminshed breath sounds bilaterally. No wheezes, rales, or rhonchi. CARDIAC: Regular rate and rhythm. S1 and S2, without murmurs, gallops, or rubs. VASCULAR: No Edema. Peripheral pulses normal and equal in all extremities. ABDOMEN: Soft, non tender and non distended. No rebound or guarding, and no masses palpated. Bowel Sounds normal. MUSCULOSKELETAL: Good range of motion of all major joints. Extremities without clubbing, cyanosis or edema. NEUROLOGIC EXAM: Alert and oriented x 3 No focal sensory or strength deficits. Speech normal. Follows commands. PSYCHIATRIC: Mood normal but intermittently anxious, not at the moment SKIN: detail exam as documented in skin assessment - Constitutional Vitals: Temp Pulse Resp BP Pulse Ox 98.6 F 102 H 40 H 168/103 92 12/17/20 12:00 12/17/20 10:00 12/17/20 10:00 12/17/20 10:00 12/17/20 10:00 General appearance: Present: no acute distress Results - Labs CBC & Chem 7: 12/13/20 07:25 12/13/20 07:25 Labs: Laboratory Last Values WBC 11.2 K/mm3 (4.5-11.0) H 12/13/20 07:25 RBC 4.26 M/mm3 (3.65-5.03) 12/13/20 07:25 Hgb 7.2 gm/dl (10.1-14.3) L 12/13/20 07:25 Hct 24.3 % (30.3-42.9) L 12/13/20 07:25 MCV 57 fl (79-97) L 12/13/20 07:25 MCH 17 pg (28-32) L 12/13/20 07:25 MCHC 30 % (30-34) 12/13/20 07:25 RDW 25.5 % (13.2-15.2) H 12/13/20 07:25 Plt Count 634 K/mm3 (140-440) H 12/13/20 07:25 [place] % (Auto) 6.0 % (0.0-7.3) 12/09/20 04:33 [place] # (Auto) 1.3 K/mm3 (0.0-0.8) H 12/09/20 04:33 Add Manual Diff Complete 12/12/20 05:01 Total Counted 100 12/12/20 05:01 Seg Neutrophils % 84.3 % (40.0-70.0) H 12/09/20 04:33 Seg Neuts % (Manual) 83.0 % (40.0-70.0) H 12/12/20 05:01 Band Neutrophils % 3.0 % 12/09/20 04:33 Lymphocytes % (Manual) 10.0 % (13.4-35.0) L 12/12/20 05:01 Monocytes % (Manual) 7.0 % (0.0-7.3) 12/12/20 05:01 Metamyelocytes % 1.0 % 12/08/20 00:15 Nucleated RBC % 2.0 % (0.0-0.9) H 12/12/20 05:01 Seg Neutrophils # 17.8 K/mm3 (1.8-7.7) H 12/09/20 04:33 Seg Neutrophils # Man 12.7 K/mm3 (1.8-7.7) H 12/12/20 05:01 Band Neutrophils # 0.0 K/mm3 12/12/20 05:01 Lymphocytes # (Manual) 1.5 K/mm3 (1.2-5.4) 12/12/20 05:01 Abs React Lymphs (Man) 0.0 K/mm3 12/12/20 05:01 Monocytes # (Manual) 1.1 K/mm3 (0.0-0.8) H 12/12/20 05:01 Eosinophils # (Manual) 0.0 K/mm3 (0.0-0.4) 12/12/20 05:01 Basophils # (Manual) 0.0 K/mm3 (0.0-0.1) 12/12/20 05:01 Metamyelocytes # 0.0 K/mm3 12/12/20 05:01 Myelocytes # 0.0 K/mm3 12/12/20 05:01 Promyelocytes # 0.0 K/mm3 12/12/20 05:01 Blast Cells # 0.0 K/mm3 12/12/20 05:01 WBC Morphology Not Reportable 12/12/20 05:01 Hypersegmented Neuts Not Reportable 12/12/20 05:01 Hyposegmented Neuts Not Reportable 12/12/20 05:01 Hypogranular Neuts Not Reportable 12/12/20 05:01 Smudge Cells Not Reportable 12/12/20 05:01 Toxic Granulation Not Reportable 12/12/20 05:01 Toxic Vacuolation Not Reportable 12/12/20 05:01 Dohle Bodies Not Reportable 12/12/20 05:01 Pelger-Huet Anomaly Not Reportable 12/12/20 05:01 Lauryn Rods Not Reportable 12/12/20 05:01 Platelet Estimate Consistent w auto 12/12/20 05:01 Clumped Platelets Not Reportable 12/12/20 05:01 Plt Clumps, EDTA Not Reportable 12/12/20 05:01 Large Platelets Not Reportable 12/12/20 05:01 Giant Platelets Not Reportable 12/12/20 05:01 Platelet Satelliting Not Reportable 12/12/20 05:01 Plt Morphology Comment Not Reportable 12/12/20 05:01 RBC Morphology Not Reportable 12/12/20 05:01 Dimorphic RBCs Not Reportable 12/12/20 05:01 Polychromasia Not Reportable 12/12/20 05:01 Hypochromasia 3+ 12/12/20 05:01 Poikilocytosis 1+ 12/12/20 05:01 Anisocytosis 2+ 12/12/20 05:01 Microcytosis 2+ 12/12/20 05:01 Macrocytosis Not Reportable 12/12/20 05:01 Spherocytes Not Reportable 12/12/20 05:01 Pappenheimer Bodies Not Reportable 12/12/20 05:01 Sickle Cells Not Reportable 12/12/20 05:01 Target Cells Not Reportable 12/12/20 05:01 Tear Drop Cells Few 12/12/20 05:01 Ovalocytes Few 12/12/20 05:01 Helmet Cells Not Reportable 12/12/20 05:01 [place] Bodies Not Reportable 12/12/20 05:01 [place] Rings Not Reportable 12/12/20 05:01 [place] Cells Not Reportable 12/12/20 05:01 Bite Cells Not Reportable 12/12/20 05:01 Crenated Cell Not Reportable 12/12/20 05:01 Elliptocytes Few 12/12/20 05:01 Acanthocytes (Spur) Not Reportable 12/12/20 05:01 Rouleaux Not Reportable 12/12/20 05:01 Hemoglobin C Crystals Not Reportable 12/12/20 05:01 Schistocytes Not Reportable 12/12/20 05:01 Malaria parasites Not Reportable 12/12/20 05:01 Brant Bodies Not Reportable 12/12/20 05:01 Hem Pathologist Commnt No 12/12/20 05:01 PT 16.4 Sec. (12.2-14.9) H 12/08/20 00:15 INR 1.27 (0.87-1.13) H 12/08/20 00:15 APTT 29.6 Sec. (24.2-36.6) 12/08/20 00:15 D-Dimer 660.07 ng/mlDDU (0-234) H 12/15/20 04:37 ABG pH 7.449 (7.320-7.450) 12/10/20 08:45 POC ABG pCO2 36.5 mmHg (32.0-48.0) 12/10/20 08:45 POC ABG pO2 64.5 mmHg (83-108) L 12/10/20 08:45 POC ABG HCO3 24.7 12/10/20 08:45 ABG O2 Saturation 91.0 (0-100) 12/10/20 08:45 POC ABG Base Excess 0.8 12/10/20 08:45 ABG Hemoglobin 7.6 (12.0-17.5) L 12/10/20 08:45 ABG Oxyhemoglobin 90.2 (94-98) L 12/10/20 08:45 ABG Methemoglobin 0.1 (0.0-1.5) 12/10/20 08:45 ABG Sodium 139.9 mmol/L (136.0-145.0) 12/10/20 08:45 ABG Potassium 3.3 mmol/L (3.40-4.50) L 12/10/20 08:45 ABG Chloride 108.0 mmol/L (98-107) H 12/10/20 08:45 ABG Glucose 126 mg/dL (65-95) H 12/10/20 08:45 Carboxyhemoglobin 0.8 (0.5-1.5) 12/10/20 08:45 FiO2 % 35.0 12/10/20 08:45 Sodium 141 mmol/L (137-145) 12/13/20 07:25 Potassium 4.5 mmol/L (3.6-5.0) 12/13/20 07:25 Chloride 107.6 mmol/L (98-107) H 12/13/20 07:25 Carbon Dioxide 23 mmol/L (22-30) 12/13/20 07:25 Anion Gap 15 mmol/L 12/13/20 07:25 BUN 25 mg/dL (7-17) H 12/13/20 07:25 Creatinine 0.4 mg/dL (0.6-1.2) L 12/13/20 07:25 Estimated GFR > 60 ml/min 12/13/20 07:25 BUN/Creatinine Ratio 63 % 12/13/20 07:25 Glucose 132 mg/dL (65-100) H 12/13/20 07:25 Lactic Acid 2.50 mmol/L (0.7-2.0) H* 12/11/20 12:38 Calcium 8.4 mg/dL (8.4-10.2) 12/13/20 07:25 Ferritin 147.8 ng/mL (10.0-200.0) 12/15/20 04:37 Total Bilirubin 0.60 mg/dL (0.1-1.2) 12/15/20 04:37 Direct Bilirubin 0.3 mg/dL (0-0.2) H 12/15/20 04:37 Indirect Bilirubin 0.3 mg/dL 12/15/20 04:37 AST 97 units/L (5-40) H 12/15/20 04:37 ALT 281 units/L (7-56) H 12/15/20 04:37 Alkaline Phosphatase 553 units/L (35-129) H 12/15/20 04:37 Lactate Dehydrogenase 511 units/L (91-180) H 12/12/20 05:01 C-Reactive Protein 1.20 mg/dL (0.00-1.30) 12/15/20 04:37 Total Protein 6.2 g/dL (6.3-8.2) L 12/15/20 04:37 Albumin 2.8 g/dL (3.9-5) L 12/15/20 04:37 Albumin/Globulin Ratio 0.8 % 12/15/20 04:37 Procalcitonin 0.83 ng/mL (<0.15) 12/15/20 04:37 Arterial Blood Glucose 126 mg/dL (65-95) H 12/10/20 08:45 Coronavirus (PCR) Positive (Negative) A 12/08/20 10:30 Hepatitis A IgM Ab Non-reactive (NonReactive) 12/13/20 07:25 Hep Bs Antigen Nonreactive (Negative) 12/13/20 07:25 Hep B Core IgM Ab Non-reactive (NonReactive) 12/13/20 07:25 Hepatitis C Antibody Non-reactive (NonReactive) 12/13/20 07:25 [place]/IV: Voiding Method Condom Catheter Active Medications - Current Medications Current Medications: Generic Name Dose Route Start Last Admin Trade Name Freq PRN Reason Stop Dose Admin Acetaminophen 650 mg 12/08/20 05:31 Acetaminophen 325 Mg Tab PO Q4H PRN Pain MILD(1-3)/Fever >100.5/[place] Albuterol 2.5 mg 12/08/20 05:31 Albuterol 2.5 Mg/3 Ml Nebu IH Q4HRT PRN Shortness Of Breath Alprazolam 0.25 mg 12/16/20 14:00 12/17/20 09:30 Alprazolam 0.25 Mg Tab PO 12/19/20 13:59 0.25 mg BID DARIAN Administration Alprazolam 0.25 mg 12/16/20 13:09 Alprazolam 0.25 Mg Tab PO Q6H PRN Anxiety Ascorbic Acid 500 mg 12/09/20 10:00 12/17/20 09:31 Ascorbic Acid 500 Mg Tab PO 500 mg BID DARIAN Administration Cholecalciferol 1,000 unit 12/09/20 10:00 12/17/20 09:30 Cholecalciferol (Vit D3) 1000 Unit (25 Mcg) Tab PO 1,000 unit QDAY DARIAN Administration Enoxaparin Sodium 40 mg 12/14/20 10:00 12/17/20 09:31 Enoxaparin 40 Mg/0.4 Ml Inj SUB-Q 40 mg QDAY@1000 DARIAN Administration Protocol Famotidine 20 mg 12/08/20 10:00 12/17/20 09:30 Famotidine 20 Mg Tab PO 20 mg BID DARIAN Administration Guaifenesin 10 ml 12/14/20 15:00 12/15/20 20:58 Guaifenesin Dm 200/20 Mg Oral Liqd 10 Ml PO 10 ml Q4H PRN Administration Cough Hydromorphone HCl 0.5 mg 12/08/20 05:31 12/16/20 13:15 Hydromorphone 1 Mg/1 Ml Inj IV 0.5 mg Q3H PRN Administration Pain , Severe (7-10) Lisinopril 20 mg 12/15/20 19:00 12/17/20 09:30 Lisinopril 20 Mg Tab PO 20 mg QDAY DARIAN Administration Ondansetron HCl 4 mg 12/08/20 05:31 Ondansetron 4 Mg/2 Ml Inj IV Q8H PRN Nausea And Vomiting Oxycodone/Acetaminophen 1 tab 12/08/20 05:31 12/16/20 22:14 Oxycodone /Acetaminophen 5-325mg Tab PO 1 tab Q6H PRN Administration Pain, Moderate (4-6) Polyethylene Glycol 17 gm 12/11/20 15:53 Polyethylene Glycol 3350 17 Gm Powder PO QDAY PRN Constipation Sodium Chloride 10 ml 12/08/20 10:00 12/17/20 09:31 Sodium Chloride 0.9% 10 Ml Flush Syringe IV 10 ml BID DARIAN Administration Sodium Chloride 10 ml 12/08/20 05:31 Sodium Chloride 0.9% 10 Ml Flush Syringe IV PRN PRN LINE FLUSH Zinc Sulfate 220 mg 12/09/20 10:00 12/17/20 09:30 Zinc Sulfate 220 Mg Cap PO 220 mg QDAY DARIAN Administration
[2020-12-17] MEDS ORDERED: EPINEPHrine 1 MG/10 ML SYRINGE ONE (23:55)
[2020-12-18] MEDS: oxyCODONE /ACETAMINOPHEN 5-325MG TAB PO PRN ×2 (01:00→23:03)
[2020-12-18] MEDS: LISINOPRIL 20 MG TAB PO SCH (09:43)
[2020-12-18] MEDS: FAMOTIDINE 20 MG TAB PO SCH ×2 (09:43→21:02)
[2020-12-18] MEDS: ALPRAZolam 0.25 MG TAB PO SCH ×2 (09:43→21:24)
[2020-12-18] MEDS: ENOXAPARIN 40 MG/0.4 ML INJ SUB-Q SCH (09:44)
[2020-12-18] MEDS: ZINC SULFATE 220 MG CAP PO SCH (09:44)
[2020-12-18] MEDS: CHOLECALCIFEROL (VIT D3) 1000 UNIT (25 mcg) TAB PO SCH (09:44)
[2020-12-18] MEDS: ASCORBIC ACID 500 MG TAB PO SCH ×2 (09:44→21:02)
--- NOTE | 2020-12-18 13:46 | Progress Note ---
Assessment and Plan Assessment and plan: Assessment and Plan Assessment and plan: 50-year-old female with history of hypertension was brought to the emergency room because of shortness of breath, cough, fever, Covid positive. Patient was diagnosed with COVID-19 1 week ago. Since then patient complained of worsening shortness of breath. Patient states she has not seen a physician for this. Patient states she does not take any medicine. Patient states the fever is fluctuating. Patient states it responds well to Tylenol. Patient states her cough is dry. Patient states she has not been vaccinated for COVID-19. Patient complains of chills. Patient denies nausea vomiting. Patient denies diarrhea. Patient denies abdominal pain. Patient denies chest pain. Patient's ox saturation was 82%. Patient was found to have acute respiratory failure. Patient WBC 17.0 and chest x-ray shows pneumonia secondary to Covid. Patient was put on BiPAP (1) Acute hypoxic respiratory failure 2/2 Covid 19 PNA pulmonary following and note reviewed Patient is on 35% Fio2 with O2 sat 93-94% (2) COVID-19 Current Visit: Yes Status: Acute Plan to address problem: ID note reviewed inflammatory markers reviewed cont. Dexamethasone x 10 days Cleared for starting remdesivir as LFTs < 10 times normal monitor markers 3. Severe sepsis procalcitonin results reviewed ID note reviewed cont. ceftriaxone and azithromycin Leucocytosis: 2/2 sepsis monitor CBC (4) Hypertension Current Visit: Yes Status: Acute Plan to address problem: Hydralazine 10 mg IV every 6 hours as needed she has no hx of HTN 5) Transaminitis: results reviewed cont. to monitor (6) anemia (7) DVT prophylaxis Current Visit: Yes Status: Acute Plan to address problem: will stop heparin and start on lovenox. Pepcid 20 mg p.o. twice daily for GI prophylaxis. Patient is a full code. 12/09/2020 -Patient was on BiPAP with FiO2 of 100%, patient desaturated when she was off BiPAP momentarily. I put her on D5 half-normal saline for maintenance. Titrate oxygen as tolerated. -Pulmonary consulted, ID consulted. -Patient has elevated ALT and AST and is not a candidate for remdesivir. -Patient is on IV antibiotics and procalcitonin level is elevated, ID recommends to continue with IV antibiotics. ID said patient is not a candidate for Actemra because of the infection with elevated procalcitonin level. 12/10; patient is on BiPAP, on Decadron. Remdesivir discontinued due to elevated liver enzymes. Patient not a candidate for Actemra because patient has elevated procalcitonin level. Continue with IV antibiotics. Prognosis is guarded. 12/11patient is A&O,A&O, c/o weakness and feels tired. C/O shortness of breath. requesting stool sofner. She denies f/c/CP/N/abd. pain 12/12: Continue supportive care. Wean oxygen as tolerated. Will obtain pulmonary consult will evaluate for possible Lasix therapy. Noted anemia with hemoglobin of 8.1 will monitor this closely. D-dimer is elevated so is AST and ALT and alk phos. This may preclude use of medications such as remdesivir which has been discontinued in relation to this. Patient remains critically ill. 12/13: Patient showing some improve, still with BiPAP requirements, continue supportive care, continued sterods, Remdesivr per ID, monitor renal function closely and LFT. wean oxygen as tolerated. Prognosis guarded 12/14: Patient seen and examined, she is showing good improvement, down to 10 liters except that she gets anxious. I spoke extensively with the family and updated them on her clinical condition 12/15: Patient continues to show good improvement, weaned down to 5L of oxygen with saturation of 99%. Will transfer to Medical floor and continue current management. 12/16: Patient was doing well this am, on 5 liters and sating 95%, later desated and was placed back on BIPAP. reassurance and counselling provided 12/17: Patient remains on oxygen high flow. I believe that she will be able to be weaned if she if we can control her anxiety. Discussed with nursing staff at bedside also discussed with the patient. Will begin LTAC referral in a.m. 12/18/20 patient is seen and examined. Less shortness of breath. No chest pain. Anxious. Is on high flow oxygen at 40 L with 75% FiO2. We cut down the FiO2 75% from 80%. Wean oxygen. Continue current management. LTAC referral The high probability of a clinically significant, sudden or life threatening deterioration of the [PULMONARY] system(s) required my full and direct att ention, intervention and personal management. The aggregate critical care time was [35] minutes. This time is in addition to time spent performing reported procedures but includes the following: [X] Data Review and interpretation [X] Patient assessment and monitoring of vital signs [X] Documentation [X] Medication orders and management - Patient Problems (1) Acute respiratory failure Current Visit: Yes Status: Acute (2) COVID-19 Current Visit: Yes Status: Acute (3) Pneumonia Current Visit: Yes Status: Acute Qualifiers: Pneumonia type: due to unspecified organism Laterality: bilateral Lung location: unspecified part of lung Qualified Code(s): J18.9 - Pneumonia, unspecified organism (4) Hypertension Current Visit: Yes Status: Acute (5) DVT prophylaxis Current Visit: Yes Status: Acute History Interval history: Patient is seen and examined. Lab and medication is reviewed. Patient shortness of breath is better. Coughing is decreased. Patient is on high flow oxygen with 40 L at the rate of 75% FiO2. We will try to wean the oxygen. Anxious Hospitalist Physical - Constitutional Vitals: Temp Pulse Resp BP Pulse Ox 98.4 F 84 26 H 122/69 99 12/18/20 12:41 12/18/20 12:00 12/18/20 12:00 12/18/20 12:00 12/18/20 12:00 General appearance: Present: no acute distress - EENT Eyes: Present: PERRL, EOM intact ENT: hearing intact, clear oral mucosa, dentition normal - Neck Neck: Present: supple, normal ROM - Respiratory Respiratory effort: normal Respiratory: bilateral: diminished - Cardiovascular Rhythm: regular Heart Sounds: Present: S1 & S2 - Extremities Extremities: no ischemia, No edema Peripheral Pulses: within normal limits - Abdominal General gastrointestinal: soft, non-tender, non-distended, normal bowel sounds - Integumentary Integumentary: Present: clear, warm, dry - Psychiatric Psychiatric: appropriate mood/affect, intact judgment & insight - Neurologic Neurologic: CNII-XII intact, moves all extremities - Allied Health Allied health notes reviewed: nursing Results - Labs CBC & Chem 7: 12/13/20 07:25 12/13/20 07:25 Labs: Laboratory Last Values WBC 11.2 K/mm3 (4.5-11.0) H 12/13/20 07:25 RBC 4.26 M/mm3 (3.65-5.03) 12/13/20 07:25 Hgb 7.2 gm/dl (10.1-14.3) L 12/13/20 07:25 Hct 24.3 % (30.3-42.9) L 12/13/20 07:25 MCV 57 fl (79-97) L 12/13/20 07:25 MCH 17 pg (28-32) L 12/13/20 07:25 MCHC 30 % (30-34) 12/13/20 07:25 RDW 25.5 % (13.2-15.2) H 12/13/20 07:25 Plt Count 634 K/mm3 (140-440) H 12/13/20 07:25 Elbert % (Auto) 6.0 % (0.0-7.3) 12/09/20 04:33 Elbert # (Auto) 1.3 K/mm3 (0.0-0.8) H 12/09/20 04:33 Add Manual Diff Complete 12/12/20 05:01 Total Counted 100 12/12/20 05:01 Seg Neutrophils % 84.3 % (40.0-70.0) H 12/09/20 04:33 Seg Neuts % (Manual) 83.0 % (40.0-70.0) H 12/12/20 05:01 Band Neutrophils % 3.0 % 12/09/20 04:33 Lymphocytes % (Manual) 10.0 % (13.4-35.0) L 12/12/20 05:01 Monocytes % (Manual) 7.0 % (0.0-7.3) 12/12/20 05:01 Metamyelocytes % 1.0 % 12/08/20 00:15 Nucleated RBC % 2.0 % (0.0-0.9) H 12/12/20 05:01 Seg Neutrophils # 17.8 K/mm3 (1.8-7.7) H 12/09/20 04:33 Seg Neutrophils # Man 12.7 K/mm3 (1.8-7.7) H 12/12/20 05:01 Band Neutrophils # 0.0 K/mm3 12/12/20 05:01 Lymphocytes # (Manual) 1.5 K/mm3 (1.2-5.4) 12/12/20 05:01 Abs React Lymphs (Man) 0.0 K/mm3 12/12/20 05:01 Monocytes # (Manual) 1.1 K/mm3 (0.0-0.8) H 12/12/20 05:01 Eosinophils # (Manual) 0.0 K/mm3 (0.0-0.4) 12/12/20 05:01 Basophils # (Manual) 0.0 K/mm3 (0.0-0.1) 12/12/20 05:01 Metamyelocytes # 0.0 K/mm3 12/12/20 05:01 Myelocytes # 0.0 K/mm3 12/12/20 05:01 Promyelocytes # 0.0 K/mm3 12/12/20 05:01 Blast Cells # 0.0 K/mm3 12/12/20 05:01 WBC Morphology Not Reportable 12/12/20 05:01 Hypersegmented Neuts Not Reportable 12/12/20 05:01 Hyposegmented Neuts Not Reportable 12/12/20 05:01 Hypogranular Neuts Not Reportable 12/12/20 05:01 Smudge Cells Not Reportable 12/12/20 05:01 Toxic Granulation Not Reportable 12/12/20 05:01 Toxic Vacuolation Not Reportable 12/12/20 05:01 Dohle Bodies Not Reportable 12/12/20 05:01 Pelger-Huet Anomaly Not Reportable 12/12/20 05:01 Lauryn Rods Not Reportable 12/12/20 05:01 Platelet Estimate Consistent w auto 12/12/20 05:01 Clumped Platelets Not Reportable 12/12/20 05:01 Plt Clumps, EDTA Not Reportable 12/12/20 05:01 Large Platelets Not Reportable 12/12/20 05:01 Giant Platelets Not Reportable 12/12/20 05:01 Platelet Satelliting Not Reportable 12/12/20 05:01 Plt Morphology Comment Not Reportable 12/12/20 05:01 RBC Morphology Not Reportable 12/12/20 05:01 Dimorphic RBCs Not Reportable 12/12/20 05:01 Polychromasia Not Reportable 12/12/20 05:01 Hypochromasia 3+ 12/12/20 05:01 Poikilocytosis 1+ 12/12/20 05:01 Anisocytosis 2+ 12/12/20 05:01 Microcytosis 2+ 12/12/20 05:01 Macrocytosis Not Reportable 12/12/20 05:01 Spherocytes Not Reportable 12/12/20 05:01 Pappenheimer Bodies Not Reportable 12/12/20 05:01 Sickle Cells Not Reportable 12/12/20 05:01 Target Cells Not Reportable 12/12/20 05:01 Tear Drop Cells Few 12/12/20 05:01 Ovalocytes Few 12/12/20 05:01 Helmet Cells Not Reportable 12/12/20 05:01 Torres-Gambell Bodies Not Reportable 12/12/20 05:01 [place] Rings Not Reportable 12/12/20 05:01 [place] Cells Not Reportable 12/12/20 05:01 Bite Cells Not Reportable 12/12/20 05:01 Crenated Cell Not Reportable 12/12/20 05:01 Elliptocytes Few 12/12/20 05:01 Acanthocytes (Spur) Not Reportable 12/12/20 05:01 Rouleaux Not Reportable 12/12/20 05:01 Hemoglobin C Crystals Not Reportable 12/12/20 05:01 Schistocytes Not Reportable 12/12/20 05:01 Malaria parasites Not Reportable 12/12/20 05:01 Brant Bodies Not Reportable 12/12/20 05:01 Hem Pathologist Commnt No 12/12/20 05:01 PT 16.4 Sec. (12.2-14.9) H 12/08/20 00:15 INR 1.27 (0.87-1.13) H 12/08/20 00:15 APTT 29.6 Sec. (24.2-36.6) 12/08/20 00:15 D-Dimer 660.07 ng/mlDDU (0-234) H 12/15/20 04:37 ABG pH 7.449 (7.320-7.450) 12/10/20 08:45 POC ABG pCO2 36.5 mmHg (32.0-48.0) 12/10/20 08:45 POC ABG pO2 64.5 mmHg (83-108) L 12/10/20 08:45 POC ABG HCO3 24.7 12/10/20 08:45 ABG O2 Saturation 91.0 (0-100) 12/10/20 08:45 POC ABG Base Excess 0.8 12/10/20 08:45 ABG Hemoglobin 7.6 (12.0-17.5) L 12/10/20 08:45 ABG Oxyhemoglobin 90.2 (94-98) L 12/10/20 08:45 ABG Methemoglobin 0.1 (0.0-1.5) 12/10/20 08:45 ABG Sodium 139.9 mmol/L (136.0-145.0) 12/10/20 08:45 ABG Potassium 3.3 mmol/L (3.40-4.50) L 12/10/20 08:45 ABG Chloride 108.0 mmol/L (98-107) H 12/10/20 08:45 ABG Glucose 126 mg/dL (65-95) H 12/10/20 08:45 Carboxyhemoglobin 0.8 (0.5-1.5) 12/10/20 08:45 FiO2 % 35.0 12/10/20 08:45 Sodium 141 mmol/L (137-145) 12/13/20 07:25 Potassium 4.5 mmol/L (3.6-5.0) 12/13/20 07:25 Chloride 107.6 mmol/L (98-107) H 12/13/20 07:25 Carbon Dioxide 23 mmol/L (22-30) 12/13/20 07:25 Anion Gap 15 mmol/L 12/13/20 07:25 BUN 25 mg/dL (7-17) H 12/13/20 07:25 Creatinine 0.4 mg/dL (0.6-1.2) L 12/13/20 07:25 Estimated GFR > 60 ml/min 12/13/20 07:25 BUN/Creatinine Ratio 63 % 12/13/20 07:25 Glucose 132 mg/dL (65-100) H 12/13/20 07:25 Lactic Acid 2.50 mmol/L (0.7-2.0) H* 12/11/20 12:38 Calcium 8.4 mg/dL (8.4-10.2) 12/13/20 07:25 Ferritin 147.8 ng/mL (10.0-200.0) 12/15/20 04:37 Total Bilirubin 0.60 mg/dL (0.1-1.2) 12/15/20 04:37 Direct Bilirubin 0.3 mg/dL (0-0.2) H 12/15/20 04:37 Indirect Bilirubin 0.3 mg/dL 12/15/20 04:37 AST 97 units/L (5-40) H 12/15/20 04:37 ALT 281 units/L (7-56) H 12/15/20 04:37 Alkaline Phosphatase 553 units/L (35-129) H 12/15/20 04:37 Lactate Dehydrogenase 511 units/L (91-180) H 12/12/20 05:01 C-Reactive Protein 1.20 mg/dL (0.00-1.30) 12/15/20 04:37 Total Protein 6.2 g/dL (6.3-8.2) L 12/15/20 04:37 Albumin 2.8 g/dL (3.9-5) L 12/15/20 04:37 Albumin/Globulin Ratio 0.8 % 12/15/20 04:37 Procalcitonin 0.83 ng/mL (<0.15) 12/15/20 04:37 Arterial Blood Glucose 126 mg/dL (65-95) H 12/10/20 08:45 Coronavirus (PCR) Positive (Negative) A 12/08/20 10:30 Hepatitis A IgM Ab Non-reactive (NonReactive) 12/13/20 07:25 Hep Bs Antigen Nonreactive (Negative) 12/13/20 07:25 Hep B Core IgM Ab Non-reactive (NonReactive) 12/13/20 07:25 Hepatitis C Antibody Non-reactive (NonReactive) 12/13/20 07:25 Kilpatrick/IV: Voiding Method Indwelling Catheter Active Medications - Current Medications Current Medications: Generic Name Dose Route Start Last Admin Trade Name Freq PRN Reason Stop Dose Admin Acetaminophen 650 mg 12/08/20 05:31 Acetaminophen 325 Mg Tab PO Q4H PRN Pain MILD(1-3)/Fever >100.5/[place] Albuterol 2.5 mg 12/08/20 05:31 Albuterol 2.5 Mg/3 Ml Nebu IH Q4HRT PRN Shortness Of Breath Alprazolam 0.25 mg 12/16/20 14:00 12/18/20 09:43 Alprazolam 0.25 Mg Tab PO 12/19/20 13:59 0.25 mg BID DARIAN Administration Alprazolam 0.25 mg 12/16/20 13:09 Alprazolam 0.25 Mg Tab PO Q6H PRN Anxiety Ascorbic Acid 500 mg 12/09/20 10:00 12/18/20 09:44 Ascorbic Acid 500 Mg Tab PO 500 mg BID DARIAN Administration Cholecalciferol 1,000 unit 12/09/20 10:00 12/18/20 09:44 Cholecalciferol (Vit D3) 1000 Unit (25 Mcg) Tab PO 1,000 unit QDAY DARIAN Administration Enoxaparin Sodium 40 mg 12/14/20 10:00 12/18/20 09:44 Enoxaparin 40 Mg/0.4 Ml Inj SUB-Q 40 mg QDAY@1000 DARIAN Administration Protocol Famotidine 20 mg 12/08/20 10:00 12/18/20 09:43 Famotidine 20 Mg Tab PO 20 mg BID DARIAN Administration Guaifenesin 10 ml 12/14/20 15:00 12/15/20 20:58 Guaifenesin Dm 200/20 Mg Oral Liqd 10 Ml PO 10 ml Q4H PRN Administration Cough Hydromorphone HCl 0.5 mg 12/08/20 05:31 12/16/20 13:15 Hydromorphone 1 Mg/1 Ml Inj IV 0.5 mg Q3H PRN Administration Pain , Severe (7-10) Lisinopril 20 mg 12/15/20 19:00 12/18/20 09:43 Lisinopril 20 Mg Tab PO 20 mg QDAY DARIAN Administration Ondansetron HCl 4 mg 12/08/20 05:31 Ondansetron 4 Mg/2 Ml Inj IV Q8H PRN Nausea And Vomiting Oxycodone/Acetaminophen 1 tab 12/08/20 05:31 12/18/20 01:00 Oxycodone /Acetaminophen 5-325mg Tab PO 1 tab Q6H PRN Administration Pain, Moderate (4-6) Polyethylene Glycol 17 gm 12/11/20 15:53 Polyethylene Glycol 3350 17 Gm Powder PO QDAY PRN Constipation Sodium Chloride 10 ml 12/08/20 10:00 12/18/20 09:44 Sodium Chloride 0.9% 10 Ml Flush Syringe IV 10 ml BID DARIAN Administration Sodium Chloride 10 ml 12/08/20 05:31 Sodium Chloride 0.9% 10 Ml Flush Syringe IV PRN PRN LINE FLUSH Zinc Sulfate 220 mg 12/09/20 10:00 12/18/20 09:44 Zinc Sulfate 220 Mg Cap PO 220 mg QDAY DARIAN Administration Nutrition/Malnutrition Assess - Malnutrition Assessment Minimum of two criteria: No physical signs of malnutrition - Attestation Statement I have reviewed and agreed w/ Malnutrition eval & tx plan: Yes
--- NOTE | 2020-12-18 14:14 | Progress Note ---
Assessment and Plan Acute hypoxemic respiratory failure COVID-19 infection Bilateral pneumonia Elevated serum transaminases Sepsis Anemia that is microcytic Thrombocytosis Lactic acidosis - continue awake proning - no new issues otherwise, watch closely but continue care as below; - dopplers negative for VTE - continue NIV qhs with prn daytime use - trend LFT's - continue aspiration precautions - continue to wean supplemental oxygen for target O2 sat's > 92% acutely - bronchodilators with pulmonary hygiene per RT - avoid nephrotoxins, renally dose all medications - avoid benzodiazepine's, reduce the possibility of delirium - complete antiinfective's per ID rec's - prn analgesia per pain score - Maintenance of sleep-wake cycle, avoid delirium - G.I. & VTE prophylaxis - PT/OT/ROM exercises - continue mobility protocols for pressure ulcer prophylaxis - Monitor hemodynamics closely - continue other care per attending / other consultants - discharge planning ongoing concurrently COVID SPECIFIC INTERVENTIONS - Remdesivir as per ID/Pulmonary developed protocols (not a candidate re: LFT's) - continue systemic steroids for severe COVID-19 infection - follow repeat COVID tests results - zinc and vitamin C supplementation - Monitor inflammatory markers per facility protocol - ferritin, Ddimer, CRP - therapeutic anticoagulation per system Protocol based on d-dimer and clinical considerations (VTE prophylaxis) - Continue contact and airborne isolation .... Re-evaluate in am & prn CONDITION: CRITICAL PROGNOSIS: GUARDED CODE STATUS: FULL CODE The high probability of a clinically significant, sudden or life-threatening deterioration of the [respiratory, cardiovascular & neurologic] system(s) req uired my full and direct attention, intervention and personal management. The aggregate critical care time was [34] minutes without overlap. Time includes spent on; [x] Data Review and interpretation [x] Patient assessment and monitoring of vital signs [x] Documentation [x] Medication orders and management Subjective Date of service: 12/18/20 Principal diagnosis: Ac hypoxemic resp failure; COVID-19 infxn; Pneumonia; Sepsis Interval history: Patient is seen today for: Acute hypoxemic respiratory failure; COVID-19 infection; Bilateral pneumonia; Elevated serum transaminases; Sepsis; Lactic acidosis Seen and examined at bedside; 24hour events reviewed; nursing and respiratory care staff consulted; no adverse overnight events reported to me; resting in bed; remains on HF oxygen; denies chest pains or palpitations; FiO2 remains at 70% Objective Vital Signs - 12hr 12/18/20 12/18/20 12/18/20 03:00 04:00 05:00 Temperature Pulse Rate 68 83 68 Pulse Rate [ 78 From Monitor] Respiratory 28 H Rate Blood Pressure 142/91 142/91 151/95 O2 Sat by Pulse 100 100 100 Oximetry 12/18/20 12/18/20 12/18/20 06:00 07:00 07:21 Temperature 97.6 F Pulse Rate 68 Pulse Rate [ From Monitor] Respiratory Rate Blood Pressure 156/95 160/97 O2 Sat by Pulse 100 100 Oximetry 12/18/20 12/18/20 12/18/20 08:00 09:00 09:43 Temperature Pulse Rate 70 81 62 Pulse Rate [ 80 From Monitor] Respiratory 27 H Rate Blood Pressure 150/93 142/89 142/89 O2 Sat by Pulse 100 100 Oximetry 12/18/20 12/18/20 12/18/20 10:00 11:00 12:00 Temperature Pulse Rate 88 90 72 Pulse Rate [ 84 From Monitor] Respiratory 26 H Rate Blood Pressure 147/96 132/77 122/69 O2 Sat by Pulse 100 99 100 Oximetry 12/18/20 12:41 Temperature 98.4 F Pulse Rate Pulse Rate [ From Monitor] Respiratory Rate Blood Pressure O2 Sat by Pulse Oximetry Constitutional: appears uncomfortable, other (middle aged female with mildly increased respiratory effort at rest) Eyes: non-icteric ENT: oropharynx moist Neck: supple, no lymphadenopathy, no JVD Effort: mildly labored Ascultation: Bilateral: rhonchi Percussion: Bilateral: not dull Cardiovascular: regular rate and rhythm Gastrointestinal: normoactive bowel sounds, soft, non-tender, non-distended Integumentary: normal Extremities: no cyanosis, no edema, pulses normal, no ischemia or petechiae Neurologic: normal mental status, non-focal exam, pupils equal and round, CN II- XII normal, motor strength normal and Psychiatric: mood appropriate, anxious CBC and BMP: 12/13/20 07:25 12/13/20 07:25 ABG, PT/INR, D-dimer: ABG ABG pH 7.449 (7.320-7.450) 12/10/20 08:45 POC ABG pCO2 36.5 mmHg (32.0-48.0) 12/10/20 08:45 POC ABG pO2 64.5 mmHg (83-108) L 12/10/20 08:45 POC ABG HCO3 24.7 12/10/20 08:45 ABG O2 Saturation 91.0 (0-100) 12/10/20 08:45 PT/INR, D-dimer PT 16.4 Sec. (12.2-14.9) H 12/08/20 00:15 INR 1.27 (0.87-1.13) H 12/08/20 00:15 D-Dimer 660.07 ng/mlDDU (0-234) H 12/15/20 04:37 Abnormal lab findings: Abnormal Labs 12/08/20 12/08/20 12/08/20 00:15 00:15 00:15 WBC 17.0 H RBC 5.40 H Hgb 8.3 L Hct 29.7 L MCV 55 L MCH 16 L MCHC 28 L RDW 25.0 H Plt Count 464 H [place] # (Auto) Seg Neutrophils % Seg Neuts % (Manual) 92.0 H Lymphocytes % (Manual) 1.0 L Nucleated RBC % Seg Neutrophils # Seg Neutrophils # Man 15.6 H Lymphocytes # (Manual) 0.2 L Monocytes # (Manual) PT 16.4 H INR 1.27 H D-Dimer 1129.87 H POC ABG pO2 ABG Hemoglobin ABG Oxyhemoglobin ABG Potassium ABG Chloride ABG Glucose Potassium 3.1 L Chloride BUN Creatinine Glucose 128 H Lactic Acid Calcium 8.3 L Ferritin Total Bilirubin 1.90 H Direct Bilirubin AST 309 H ALT 1384 H Alkaline Phosphatase 440 H Lactate Dehydrogenase C-Reactive Protein Total Protein Albumin 3.2 L Arterial Blood Glucose Coronavirus (PCR) 12/08/20 12/08/20 12/08/20 00:15 00:15 00:15 WBC RBC Hgb Hct MCV MCH MCHC RDW Plt Count [place] # (Auto) Seg Neutrophils % Seg Neuts % (Manual) Lymphocytes % (Manual) Nucleated RBC % Seg Neutrophils # Seg Neutrophils # Man Lymphocytes # (Manual) Monocytes # (Manual) PT INR D-Dimer POC ABG pO2 ABG Hemoglobin ABG Oxyhemoglobin ABG Potassium ABG Chloride ABG Glucose Potassium Chloride BUN Creatinine Glucose Lactic Acid 2.30 H* Calcium Ferritin 289.8 H Total Bilirubin Direct Bilirubin AST ALT Alkaline Phosphatase Lactate Dehydrogenase 608 H C-Reactive Protein 20.70 H Total Protein Albumin Arterial Blood Glucose Coronavirus (PCR) 12/08/20 12/08/20 12/08/20 02:16 09:49 10:30 WBC RBC Hgb Hct MCV MCH MCHC RDW Plt Count [place] # (Auto) Seg Neutrophils % Seg Neuts % (Manual) Lymphocytes % (Manual) Nucleated RBC % Seg Neutrophils # Seg Neutrophils # Man Lymphocytes # (Manual) Monocytes # (Manual) PT INR D-Dimer POC ABG pO2 ABG Hemoglobin ABG Oxyhemoglobin ABG Potassium ABG Chloride ABG Glucose Potassium Chloride BUN Creatinine Glucose Lactic Acid 2.50 H* 2.40 H* Calcium Ferritin Total Bilirubin Direct Bilirubin AST ALT Alkaline Phosphatase Lactate Dehydrogenase C-Reactive Protein Total Protein Albumin Arterial Blood Glucose Coronavirus (PCR) Positive A 12/09/20 12/09/20 12/09/20 04:33 04:33 09:13 WBC 21.0 H RBC 5.12 H Hgb 8.2 L Hct 29.1 L MCV 57 L MCH 16 L MCHC 28 L RDW 24.6 H Plt Count 509 H [place] # (Auto) 1.3 H Seg Neutrophils % 84.3 H Seg Neuts % (Manual) 93.0 H Lymphocytes % (Manual) 2.0 L Nucleated RBC % 2.0 H Seg Neutrophils # 17.8 H Seg Neutrophils # Man 19.5 H Lymphocytes # (Manual) 0.4 L Monocytes # (Manual) PT INR D-Dimer POC ABG pO2 ABG Hemoglobin ABG Oxyhemoglobin ABG Potassium ABG Chloride ABG Glucose Potassium 3.5 L Chloride BUN 30 H 29 H Creatinine Glucose 190 H 129 H Lactic Acid Calcium Ferritin Total Bilirubin Direct Bilirubin AST 276 H ALT 867 H Alkaline Phosphatase 685 H Lactate Dehydrogenase C-Reactive Protein Total Protein Albumin 3.1 L Arterial Blood Glucose Coronavirus (PCR) 12/09/20 12/10/20 12/10/20 19:16 05:04 05:04 WBC RBC Hgb Hct MCV MCH MCHC RDW Plt Count [place] # (Auto) Seg Neutrophils % Seg Neuts % (Manual) Lymphocytes % (Manual) Nucleated RBC % Seg Neutrophils # Seg Neutrophils # Man Lymphocytes # (Manual) Monocytes # (Manual) PT INR D-Dimer POC ABG pO2 ABG Hemoglobin ABG Oxyhemoglobin ABG Potassium ABG Chloride ABG Glucose Potassium 3.4 L Chloride BUN 25 H Creatinine Glucose 184 H Lactic Acid 2.80 H* 3.30 H* Calcium 7.9 L Ferritin Total Bilirubin Direct Bilirubin AST 277 H ALT 722 H Alkaline Phosphatase 773 H Lactate Dehydrogenase C-Reactive Protein Total Protein Albumin 2.9 L Arterial Blood Glucose Coronavirus (PCR) 12/10/20 12/10/20 12/10/20 08:11 08:45 11:15 WBC RBC Hgb Hct MCV MCH MCHC RDW Plt Count [place] # (Auto) Seg Neutrophils % Seg Neuts % (Manual) Lymphocytes % (Manual) Nucleated RBC % Seg Neutrophils # Seg Neutrophils # Man Lymphocytes # (Manual) Monocytes # (Manual) PT INR D-Dimer POC ABG pO2 64.5 L ABG Hemoglobin 7.6 L ABG Oxyhemoglobin 90.2 L ABG Potassium 3.3 L ABG Chloride 108.0 H ABG Glucose 126 H Potassium Chloride BUN Creatinine Glucose Lactic Acid 2.10 H* 2.40 H* Calcium Ferritin Total Bilirubin Direct Bilirubin AST ALT Alkaline Phosphatase Lactate Dehydrogenase C-Reactive Protein Total Protein Albumin Arterial Blood Glucose 126 H Coronavirus (PCR) 12/10/20 12/10/20 12/11/20 13:36 19:13 00:49 WBC RBC Hgb Hct MCV MCH MCHC RDW Plt Count [place] # (Auto) Seg Neutrophils % Seg Neuts % (Manual) Lymphocytes % (Manual) Nucleated RBC % Seg Neutrophils # Seg Neutrophils # Man Lymphocytes # (Manual) Monocytes # (Manual) PT INR D-Dimer POC ABG pO2 ABG Hemoglobin ABG Oxyhemoglobin ABG Potassium ABG Chloride ABG Glucose Potassium 3.4 L Chloride BUN Creatinine Glucose Lactic Acid 3.40 H* 2.30 H* Calcium Ferritin Total Bilirubin Direct Bilirubin AST ALT Alkaline Phosphatase Lactate Dehydrogenase C-Reactive Protein Total Protein Albumin Arterial Blood Glucose Coronavirus (PCR) 12/11/20 12/11/20 12/11/20 05:34 05:34 10:06 WBC RBC Hgb Hct MCV MCH MCHC RDW Plt Count [place] # (Auto) Seg Neutrophils % Seg Neuts % (Manual) Lymphocytes % (Manual) Nucleated RBC % Seg Neutrophils # Seg Neutrophils # Man Lymphocytes # (Manual) Monocytes # (Manual) PT INR D-Dimer POC ABG pO2 ABG Hemoglobin ABG Oxyhemoglobin ABG Potassium ABG Chloride ABG Glucose Potassium Chloride 108.1 H BUN Creatinine 0.4 L Glucose 160 H Lactic Acid 2.30 H* 2.90 H* Calcium 8.3 L Ferritin Total Bilirubin Direct Bilirubin AST 249 H ALT 589 H Alkaline Phosphatase 701 H Lactate Dehydrogenase C-Reactive Protein Total Protein 5.9 L Albumin 3.0 L Arterial Blood Glucose Coronavirus (PCR) 12/11/20 12/11/20 12/11/20 12:38 12:38 12:38 WBC RBC Hgb Hct MCV MCH MCHC RDW Plt Count [place] # (Auto) Seg Neutrophils % Seg Neuts % (Manual) Lymphocytes % (Manual) Nucleated RBC % Seg Neutrophils # Seg Neutrophils # Man Lymphocytes # (Manual) Monocytes # (Manual) PT INR D-Dimer 725.41 H POC ABG pO2 ABG Hemoglobin ABG Oxyhemoglobin ABG Potassium ABG Chloride ABG Glucose Potassium Chloride BUN Creatinine Glucose Lactic Acid 2.50 H* Calcium Ferritin Total Bilirubin Direct Bilirubin AST ALT Alkaline Phosphatase Lactate Dehydrogenase 447 H C-Reactive Protein 2.90 H Total Protein Albumin Arterial Blood Glucose Coronavirus (PCR) 12/12/20 12/12/20 12/12/20 05:01 05:01 05:01 WBC 15.3 H RBC Hgb 8.1 L Hct 28.4 L MCV 57 L MCH 16 L MCHC 29 L RDW 25.0 H Plt Count 809 H [place] # (Auto) Seg Neutrophils % Seg Neuts % (Manual) 83.0 H Lymphocytes % (Manual) 10.0 L Nucleated RBC % 2.0 H Seg Neutrophils # Seg Neutrophils # Man 12.7 H Lymphocytes # (Manual) Monocytes # (Manual) 1.1 H PT INR D-Dimer 752.84 H POC ABG pO2 ABG Hemoglobin ABG Oxyhemoglobin ABG Potassium ABG Chloride ABG Glucose Potassium Chloride BUN 20 H Creatinine 0.4 L Glucose 120 H Lactic Acid Calcium Ferritin Total Bilirubin Direct Bilirubin AST 121 H ALT 469 H Alkaline Phosphatase 633 H Lactate Dehydrogenase 511 H C-Reactive Protein 3.50 H Total Protein Albumin 3.1 L Arterial Blood Glucose Coronavirus (PCR) 12/13/20 12/13/20 12/14/20 07:25 07:25 13:54 WBC 11.2 H RBC Hgb 7.2 L Hct 24.3 L MCV 57 L MCH 17 L MCHC RDW 25.5 H Plt Count 634 H [place] # (Auto) Seg Neutrophils % Seg Neuts % (Manual) Lymphocytes % (Manual) Nucleated RBC % Seg Neutrophils # Seg Neutrophils # Man Lymphocytes # (Manual) Monocytes # (Manual) PT INR D-Dimer POC ABG pO2 ABG Hemoglobin ABG Oxyhemoglobin ABG Potassium ABG Chloride ABG Glucose Potassium Chloride 107.6 H BUN 25 H Creatinine 0.4 L Glucose 132 H Lactic Acid Calcium Ferritin Total Bilirubin Direct Bilirubin 0.3 H 0.4 H AST 72 H 115 H ALT 295 H 318 H Alkaline Phosphatase 466 H 617 H Lactate Dehydrogenase C-Reactive Protein Total Protein 6.1 L Albumin 2.7 L 3.0 L Arterial Blood Glucose Coronavirus (PCR) 12/14/20 12/14/20 12/15/20 13:54 13:54 04:37 WBC RBC Hgb Hct MCV MCH MCHC RDW Plt Count [place] # (Auto) Seg Neutrophils % Seg Neuts % (Manual) Lymphocytes % (Manual) Nucleated RBC % Seg Neutrophils # Seg Neutrophils # Man Lymphocytes # (Manual) Monocytes # (Manual) PT INR D-Dimer 806.70 H POC ABG pO2 ABG Hemoglobin ABG Oxyhemoglobin ABG Potassium ABG Chloride ABG Glucose Potassium Chloride BUN Creatinine Glucose Lactic Acid Calcium Ferritin Total Bilirubin Direct Bilirubin 0.3 H AST 97 H ALT 281 H Alkaline Phosphatase 553 H Lactate Dehydrogenase C-Reactive Protein 1.70 H Total Protein 6.2 L Albumin 2.8 L Arterial Blood Glucose Coronavirus (PCR) 12/15/20 04:37 WBC RBC Hgb Hct MCV MCH MCHC RDW Plt Count [place] # (Auto) Seg Neutrophils % Seg Neuts % (Manual) Lymphocytes % (Manual) Nucleated RBC % Seg Neutrophils # Seg Neutrophils # Man Lymphocytes # (Manual) Monocytes # (Manual) PT INR D-Dimer 660.07 H POC ABG pO2 ABG Hemoglobin ABG Oxyhemoglobin ABG Potassium ABG Chloride ABG Glucose Potassium Chloride BUN Creatinine Glucose Lactic Acid Calcium Ferritin Total Bilirubin Direct Bilirubin AST ALT Alkaline Phosphatase Lactate Dehydrogenase C-Reactive Protein Total Protein Albumin Arterial Blood Glucose Coronavirus (PCR) Chest x-ray: pending Allied health notes reviewed: nursing
[2020-12-18] MEDS: HYDROmorphone 1 MG/1 ML INJ IV PRN ×2 (15:57→21:06)
[2020-12-18] MEDS: ALPRAZolam 0.25 MG TAB PO PRN (21:03)
[2020-12-18] MEDS: guaiFENesin DM 200/20 MG ORAL LIQD 10 ML PO PRN (21:03)
[2020-12-18] MEDS: ACETAMINOPHEN 325 MG TAB PO PRN (23:02)
[2020-12-19] MEDS: HYDROmorphone 1 MG/1 ML INJ IV PRN (04:16)
[2020-12-19] MEDS: ALPRAZolam 0.25 MG TAB PO PRN ×3 (04:16→22:43)
[2020-12-19] MEDS: guaiFENesin DM 200/20 MG ORAL LIQD 10 ML PO PRN (04:16)
--- NOTE | 2020-12-19 07:54 | Progress Note ---
Assessment and Plan Assessment and plan: 50-year-old female with history of hypertension was brought to the emergency room because of shortness of breath, cough, fever, Covid positive. Patient was diagnosed with COVID-19 1 week ago. Since then patient complained of worsening shortness of breath. Patient states she has not seen a physician for this. Patient states she does not take any medicine. Patient states the fever is fluctuating. Patient states it responds well to Tylenol. Patient states her cough is dry. Patient states she has not been vaccinated for COVID-19. Patient complains of chills. Patient denies nausea vomiting. Patient denies diarrhea. Patient denies abdominal pain. Patient denies chest pain. Patient's ox saturation was 82%. Patient was found to have acute respiratory failure. Patient WBC 17.0 and chest x-ray shows pneumonia secondary to Covid. Patient was put on BiPAP (1) Acute hypoxic respiratory failure 2/2 Covid 19 PNA pulmonary following and note reviewed Patient is on 35% Fio2 with O2 sat 93-94% (2) COVID-19 Current Visit: Yes Status: Acute Plan to address problem: ID note reviewed inflammatory markers reviewed cont. Dexamethasone x 10 days Cleared for starting remdesivir as LFTs < 10 times normal monitor markers 3. Severe sepsis procalcitonin results reviewed ID note reviewed cont. ceftriaxone and azithromycin (4) LeuKocytosis: 2/2 sepsis monitor CBC (5) Hypertension Current Visit: Yes Status: Acute Plan to address problem: Hydralazine 10 mg IV every 6 hours as needed she has no hx of HTN 6) Transaminitis: results reviewed cont. to monitor (7) anemia (8) DVT prophylaxis Current Visit: Yes Status: Acute Plan to address problem: will stop heparin and start on lovenox. Pepcid 20 mg p.o. twice daily for GI prophylaxis. Patient is a full code. 12/09/2020 -Patient was on BiPAP with FiO2 of 100%, patient desaturated when she was off BiPAP momentarily. I put her on D5 half-normal saline for maintenance. Titrate oxygen as tolerated. -Pulmonary consulted, ID consulted. -Patient has elevated ALT and AST and is not a candidate for remdesivir. -Patient is on IV antibiotics and procalcitonin level is elevated, ID recommends to continue with IV antibiotics. ID said patient is not a candidate for Actemra because of the infection with elevated procalcitonin level. 12/10; patient is on BiPAP, on Decadron. Remdesivir discontinued due to elevated liver enzymes. Patient not a candidate for Actemra because patient has elevated procalcitonin level. Continue with IV antibiotics. Prognosis is guarded. 12/11patient is A&O,A&O, c/o weakness and feels tired. C/O shortness of breath. requesting stool sofner. She denies f/c/CP/N/abd. pain 12/12: Continue supportive care. Wean oxygen as tolerated. Will obtain pulmonary consult will evaluate for possible Lasix therapy. Noted anemia with hemoglobin of 8.1 will monitor this closely. D-dimer is elevated so is AST and ALT and alk phos. This may preclude use of medications such as remdesivir which has been discontinued in relation to this. Patient remains critically ill. 12/13: Patient showing some improve, still with BiPAP requirements, continue supportive care, continued sterods, Remdesivr per ID, monitor renal function closely and LFT. wean oxygen as tolerated. Prognosis guarded 12/14: Patient seen and examined, she is showing good improvement, down to 10 liters except that she gets anxious. I spoke extensively with the family and updated them on her clinical condition 12/15: Patient continues to show good improvement, weaned down to 5L of oxygen with saturation of 99%. Will transfer to Medical floor and continue current management. 12/16: Patient was doing well this am, on 5 liters and sating 95%, later desated and was placed back on BIPAP. reassurance and counselling provided 12/17: Patient remains on oxygen high flow. I believe that she will be able to be weaned if she if we can control her anxiety. Discussed with nursing staff at bedside also discussed with the patient. Will begin LTAC referral in a.m. 12/18/20 patient is seen and examined. Less shortness of breath. No chest pain. Anxious. Is on high flow oxygen at 40 L with 75% FiO2. We cut down the FiO2 75% from 80%. Wean oxygen. Continue current management. LTAC referral 12/19: Ms. Jarrett continues to show some improvement, She is currently on 70% FIO2 and satting 99%. Discussed with respiratory therapist will try to wean down further. Will transfer to MedSurg. Continue to encourage slow deep breaths. Continue to use anxiolytics. Awaiting LTAC approval. Continue to monitor hemoglobin. History Interval history: Patient seen and examined showing some improvement, she remains calm this morning high flow is down to 70 satting 99% Hospitalist Physical - Physical exam Narrative exam: VITAL SIGNS: Reviewed. GENERAL: The patient appears normally developed, otherwise short of breath, vital signs as documented. HEAD: No signs of head trauma. EYES: Pupils are equal. Extraocular motions intact. EARS: Hearing grossly intact. MOUTH: Oropharynx is normal. NECK: No adenopathy, no JVD. CHEST: Chest with diminshed breath sounds bilaterally. No wheezes, rales, or rhonchi. CARDIAC: Regular rate and rhythm. S1 and S2, without murmurs, gallops, or rubs. VASCULAR: No Edema. Peripheral pulses normal and equal in all extremities. ABDOMEN: Soft, non tender and non distended. No rebound or guarding, and no masses palpated. Bowel Sounds normal. MUSCULOSKELETAL: Good range of motion of all major joints. Extremities without clubbing, cyanosis or edema. NEUROLOGIC EXAM: Alert and oriented x 3 No focal sensory or strength deficits. Speech normal. Follows commands. PSYCHIATRIC: Mood normal but intermittently anxious, not at the moment SKIN: detail exam as documented in skin assessment - Constitutional Vitals: Temp Pulse Resp BP Pulse Ox 98.0 F 59 L 13 90/52 100 12/19/20 07:42 12/19/20 07:00 12/19/20 07:00 12/19/20 07:00 12/19/20 07:00 General appearance: Present: no acute distress Results - Labs CBC & Chem 7: 12/13/20 07:25 12/13/20 07:25 Labs: Laboratory Last Values WBC 11.2 K/mm3 (4.5-11.0) H 12/13/20 07:25 RBC 4.26 M/mm3 (3.65-5.03) 12/13/20 07:25 Hgb 7.2 gm/dl (10.1-14.3) L 12/13/20 07:25 Hct 24.3 % (30.3-42.9) L 12/13/20 07:25 MCV 57 fl (79-97) L 12/13/20 07:25 MCH 17 pg (28-32) L 12/13/20 07:25 MCHC 30 % (30-34) 12/13/20 07:25 RDW 25.5 % (13.2-15.2) H 12/13/20 07:25 Plt Count 634 K/mm3 (140-440) H 12/13/20 07:25 [place] % (Auto) 6.0 % (0.0-7.3) 12/09/20 04:33 [place] # (Auto) 1.3 K/mm3 (0.0-0.8) H 12/09/20 04:33 Add Manual Diff Complete 12/12/20 05:01 Total Counted 100 12/12/20 05:01 Seg Neutrophils % 84.3 % (40.0-70.0) H 12/09/20 04:33 Seg Neuts % (Manual) 83.0 % (40.0-70.0) H 12/12/20 05:01 Band Neutrophils % 3.0 % 12/09/20 04:33 Lymphocytes % (Manual) 10.0 % (13.4-35.0) L 12/12/20 05:01 Monocytes % (Manual) 7.0 % (0.0-7.3) 12/12/20 05:01 Metamyelocytes % 1.0 % 12/08/20 00:15 Nucleated RBC % 2.0 % (0.0-0.9) H 12/12/20 05:01 Seg Neutrophils # 17.8 K/mm3 (1.8-7.7) H 12/09/20 04:33 Seg Neutrophils # Man 12.7 K/mm3 (1.8-7.7) H 12/12/20 05:01 Band Neutrophils # 0.0 K/mm3 12/12/20 05:01 Lymphocytes # (Manual) 1.5 K/mm3 (1.2-5.4) 12/12/20 05:01 Abs React Lymphs (Man) 0.0 K/mm3 12/12/20 05:01 Monocytes # (Manual) 1.1 K/mm3 (0.0-0.8) H 12/12/20 05:01 Eosinophils # (Manual) 0.0 K/mm3 (0.0-0.4) 12/12/20 05:01 Basophils # (Manual) 0.0 K/mm3 (0.0-0.1) 12/12/20 05:01 Metamyelocytes # 0.0 K/mm3 12/12/20 05:01 Myelocytes # 0.0 K/mm3 12/12/20 05:01 Promyelocytes # 0.0 K/mm3 12/12/20 05:01 Blast Cells # 0.0 K/mm3 12/12/20 05:01 WBC Morphology Not Reportable 12/12/20 05:01 Hypersegmented Neuts Not Reportable 12/12/20 05:01 Hyposegmented Neuts Not Reportable 12/12/20 05:01 Hypogranular Neuts Not Reportable 12/12/20 05:01 Smudge Cells Not Reportable 12/12/20 05:01 Toxic Granulation Not Reportable 12/12/20 05:01 Toxic Vacuolation Not Reportable 12/12/20 05:01 Dohle Bodies Not Reportable 12/12/20 05:01 Pelger-Huet Anomaly Not Reportable 12/12/20 05:01 Lauryn Rods Not Reportable 12/12/20 05:01 Platelet Estimate Consistent w auto 12/12/20 05:01 Clumped Platelets Not Reportable 12/12/20 05:01 Plt Clumps, EDTA Not Reportable 12/12/20 05:01 Large Platelets Not Reportable 12/12/20 05:01 Giant Platelets Not Reportable 12/12/20 05:01 Platelet Satelliting Not Reportable 12/12/20 05:01 Plt Morphology Comment Not Reportable 12/12/20 05:01 RBC Morphology Not Reportable 12/12/20 05:01 Dimorphic RBCs Not Reportable 12/12/20 05:01 Polychromasia Not Reportable 12/12/20 05:01 Hypochromasia 3+ 12/12/20 05:01 Poikilocytosis 1+ 12/12/20 05:01 Anisocytosis 2+ 12/12/20 05:01 Microcytosis 2+ 12/12/20 05:01 Macrocytosis Not Reportable 12/12/20 05:01 Spherocytes Not Reportable 12/12/20 05:01 Pappenheimer Bodies Not Reportable 12/12/20 05:01 Sickle Cells Not Reportable 12/12/20 05:01 Target Cells Not Reportable 12/12/20 05:01 Tear Drop Cells Few 12/12/20 05:01 Ovalocytes Few 12/12/20 05:01 Helmet Cells Not Reportable 12/12/20 05:01 [place] Bodies Not Reportable 12/12/20 05:01 [place] Rings Not Reportable 12/12/20 05:01 Jens Cells Not Reportable 12/12/20 05:01 Bite Cells Not Reportable 12/12/20 05:01 Crenated Cell Not Reportable 12/12/20 05:01 Elliptocytes Few 12/12/20 05:01 Acanthocytes (Spur) Not Reportable 12/12/20 05:01 Rouleaux Not Reportable 12/12/20 05:01 Hemoglobin C Crystals Not Reportable 12/12/20 05:01 Schistocytes Not Reportable 12/12/20 05:01 Malaria parasites Not Reportable 12/12/20 05:01 Brant Bodies Not Reportable 12/12/20 05:01 Hem Pathologist Commnt No 12/12/20 05:01 PT 16.4 Sec. (12.2-14.9) H 12/08/20 00:15 INR 1.27 (0.87-1.13) H 12/08/20 00:15 APTT 29.6 Sec. (24.2-36.6) 12/08/20 00:15 D-Dimer 660.07 ng/mlDDU (0-234) H 12/15/20 04:37 ABG pH 7.449 (7.320-7.450) 12/10/20 08:45 POC ABG pCO2 36.5 mmHg (32.0-48.0) 12/10/20 08:45 POC ABG pO2 64.5 mmHg (83-108) L 12/10/20 08:45 POC ABG HCO3 24.7 12/10/20 08:45 ABG O2 Saturation 91.0 (0-100) 12/10/20 08:45 POC ABG Base Excess 0.8 12/10/20 08:45 ABG Hemoglobin 7.6 (12.0-17.5) L 12/10/20 08:45 ABG Oxyhemoglobin 90.2 (94-98) L 12/10/20 08:45 ABG Methemoglobin 0.1 (0.0-1.5) 12/10/20 08:45 ABG Sodium 139.9 mmol/L (136.0-145.0) 12/10/20 08:45 ABG Potassium 3.3 mmol/L (3.40-4.50) L 12/10/20 08:45 ABG Chloride 108.0 mmol/L (98-107) H 12/10/20 08:45 ABG Glucose 126 mg/dL (65-95) H 12/10/20 08:45 Carboxyhemoglobin 0.8 (0.5-1.5) 12/10/20 08:45 FiO2 % 35.0 12/10/20 08:45 Sodium 141 mmol/L (137-145) 12/13/20 07:25 Potassium 4.5 mmol/L (3.6-5.0) 12/13/20 07:25 Chloride 107.6 mmol/L (98-107) H 12/13/20 07:25 Carbon Dioxide 23 mmol/L (22-30) 12/13/20 07:25 Anion Gap 15 mmol/L 12/13/20 07:25 BUN 25 mg/dL (7-17) H 12/13/20 07:25 Creatinine 0.4 mg/dL (0.6-1.2) L 12/13/20 07:25 Estimated GFR > 60 ml/min 12/13/20 07:25 BUN/Creatinine Ratio 63 % 12/13/20 07:25 Glucose 132 mg/dL (65-100) H 12/13/20 07:25 Lactic Acid 2.50 mmol/L (0.7-2.0) H* 12/11/20 12:38 Calcium 8.4 mg/dL (8.4-10.2) 12/13/20 07:25 Ferritin 147.8 ng/mL (10.0-200.0) 12/15/20 04:37 Total Bilirubin 0.60 mg/dL (0.1-1.2) 12/15/20 04:37 Direct Bilirubin 0.3 mg/dL (0-0.2) H 12/15/20 04:37 Indirect Bilirubin 0.3 mg/dL 12/15/20 04:37 AST 97 units/L (5-40) H 12/15/20 04:37 ALT 281 units/L (7-56) H 12/15/20 04:37 Alkaline Phosphatase 553 units/L (35-129) H 12/15/20 04:37 Lactate Dehydrogenase 511 units/L (91-180) H 12/12/20 05:01 C-Reactive Protein 1.20 mg/dL (0.00-1.30) 12/15/20 04:37 Total Protein 6.2 g/dL (6.3-8.2) L 12/15/20 04:37 Albumin 2.8 g/dL (3.9-5) L 12/15/20 04:37 Albumin/Globulin Ratio 0.8 % 12/15/20 04:37 Procalcitonin 0.83 ng/mL (<0.15) 12/15/20 04:37 Arterial Blood Glucose 126 mg/dL (65-95) H 12/10/20 08:45 Coronavirus (PCR) Positive (Negative) A 12/08/20 10:30 Hepatitis A IgM Ab Non-reactive (NonReactive) 12/13/20 07:25 Hep Bs Antigen Nonreactive (Negative) 12/13/20 07:25 Hep B Core IgM Ab Non-reactive (NonReactive) 12/13/20 07:25 Hepatitis C Antibody Non-reactive (NonReactive) 12/13/20 07:25 [place]/IV: Voiding Method Indwelling Catheter Active Medications - Current Medications Current Medications: Generic Name Dose Route Start Last Admin Trade Name Freq PRN Reason Stop Dose Admin Acetaminophen 650 mg 12/08/20 05:31 12/18/20 23:02 Acetaminophen 325 Mg Tab PO 650 mg Q4H PRN Administration Pain MILD(1-3)/Fever >100.5/[place] Albuterol 2.5 mg 12/08/20 05:31 Albuterol 2.5 Mg/3 Ml Nebu IH Q4HRT PRN Shortness Of Breath Alprazolam 0.25 mg 12/16/20 14:00 12/18/20 21:24 Alprazolam 0.25 Mg Tab PO 12/19/20 13:59 Not Given BID DARIAN Alprazolam 0.25 mg 12/16/20 13:09 12/19/20 04:16 Alprazolam 0.25 Mg Tab PO 0.25 mg Q6H PRN Administration Anxiety Ascorbic Acid 500 mg 12/09/20 10:00 12/18/20 21:02 Ascorbic Acid 500 Mg Tab PO 500 mg BID DARIAN Administration Cholecalciferol 1,000 unit 12/09/20 10:00 12/18/20 09:44 Cholecalciferol (Vit D3) 1000 Unit (25 Mcg) Tab PO 1,000 unit QDAY DARIAN Administration Enoxaparin Sodium 80 mg 12/19/20 10:00 Enoxaparin 100 Mg/1 Ml Inj 1 mg/kg (80 mg) SUB-Q Q12HR [facility] Protocol Famotidine 20 mg 12/08/20 10:00 12/18/20 21:02 Famotidine 20 Mg Tab PO 20 mg BID DARIAN Administration Guaifenesin 10 ml 12/14/20 15:00 12/19/20 04:16 Guaifenesin Dm 200/20 Mg Oral Liqd 10 Ml PO 10 ml Q4H PRN Administration Cough Hydromorphone HCl 0.5 mg 12/08/20 05:31 12/19/20 04:16 Hydromorphone 1 Mg/1 Ml Inj IV 0.5 mg Q3H PRN Administration Pain , Severe (7-10) Lisinopril 20 mg 12/15/20 19:00 12/18/20 09:43 Lisinopril 20 Mg Tab PO 20 mg QDAY DARIAN Administration Ondansetron HCl 4 mg 12/08/20 05:31 Ondansetron 4 Mg/2 Ml Inj IV Q8H PRN Nausea And Vomiting Oxycodone/Acetaminophen 1 tab 12/08/20 05:31 12/18/20 23:03 Oxycodone /Acetaminophen 5-325mg Tab PO 1 tab Q6H PRN Administration Pain, Moderate (4-6) Polyethylene Glycol 17 gm 12/11/20 15:53 Polyethylene Glycol 3350 17 Gm Powder PO QDAY PRN Constipation Sodium Chloride 10 ml 12/08/20 10:00 12/18/20 21:03 Sodium Chloride 0.9% 10 Ml Flush Syringe IV 10 ml BID DARIAN Administration Sodium Chloride 10 ml 12/08/20 05:31 Sodium Chloride 0.9% 10 Ml Flush Syringe IV PRN PRN LINE FLUSH Zinc Sulfate 220 mg 12/09/20 10:00 12/18/20 09:44 Zinc Sulfate 220 Mg Cap PO 220 mg QDAY DARIAN Administration Nutrition/Malnutrition Assess - Dietary Evaluation Nutrition/Malnutrition Findings: Nutrition Notes Start: 12/18/20 14:21 Freq: Status: Active Protocol: Document 12/18/20 14:21 ARCHIE (Rec: 12/18/20 14:22 ARCHIE [id number]) Nutrition Notes Need for Assessment generated from: LOS Initial or Follow up Brief Note Subjective/Other Information Pt eating 100% of meals. Nutrition Intervention Revisit per MD consult or patient Sign Off request:
[2020-12-19] MEDS ORDERED: SODIUM CHLORIDE 0.9% 1000 ML 1,000 ML ONE (09:42)
[2020-12-19] MEDS: FAMOTIDINE 20 MG TAB PO SCH ×2 (10:19→22:39)
[2020-12-19] MEDS: ZINC SULFATE 220 MG CAP PO SCH (10:19)
[2020-12-19] MEDS: ENOXAPARIN 80 MG/0.8 ML INJ SUB-Q SCH ×2 (10:19→22:41)
[2020-12-19] MEDS: CHOLECALCIFEROL (VIT D3) 1000 UNIT (25 mcg) TAB PO SCH (10:19)
[2020-12-19] MEDS: ASCORBIC ACID 500 MG TAB PO SCH ×2 (10:20→22:42)
[2020-12-19] MEDS: LISINOPRIL 20 MG TAB PO SCH (10:20)
[2020-12-19] MEDS: ALPRAZolam 0.25 MG TAB PO SCH (10:20)
--- NOTE | 2020-12-19 13:01 | Progress Note ---
Assessment and Plan 50-year-old female with history of hypertension was brought to the emergency room because of shortness of breath, cough, fever, Covid positive. Patient was diagnosed with COVID-19 1 week ago. Since then patient complained of worsening shortness of breath. Patient states she has not seen a physician for this. Patient states she does not take any medicine. Patient states the fever is fluctuating. Patient states it responds well to Tylenol. Patient states her cough is dry. Patient states she has not been vaccinated for COVID-19. Patient complains of chills. Patient denies nausea vomiting. Patient denies diarrhea. Patient denies abdominal pain. Patient denies chest pain. patient's ox saturation was 82%. Patient was found to have acute respiratory failure. Patient WBC 17.0 and chest x-ray shows pneumonia secondary to Covid. Patient was put on BiPAP Patient sleepy . Patient is resting on vapotherm , FIO2 70% and O2 saturation running 100%. Recommend slowly taper FIO2 and Keep O2 saturation above 92%. Patient afebrile and has mild leukocytosis. Blood pressure 90/47 Pulse 61 Chest xray done 12/07/20 reported here is patchy diffuse ground glass predominant airspace disease and also mild bibasilar consolidation/atelectasis. No pleural effusion. CT of chest done 12/08/20 reported Negative for PTE. Pulmonary findings as above suggesting an atypical etiology versus interstitial edema. Venous doppler studies of legs 12/08/20 No sonographic evidence for DVT in either lower extremity. Patient presently on Dexamethasone, REMDESIVIR, S/C Lovenox, Famotidine.Albuterol inhaler. I spent critical care time of 32 minutes by reviewing the chart, examine the patient, reviewthe labs and xrays talking to the nursing staff, respiratory therapy, and work out plan of treatment in this critically ill COVID patient. - Patient Problems (1) Acute respiratory failure Current Visit: Yes Status: Acute Plan to address problem: Vapotherm, FIO2 70%. Finished course of dexamethasone and Remdesivir Continue S/C Lovenox. Continue Famotidine. Albuterol inhaler (2) COVID-19 Current Visit: Yes Status: Acute Plan to address problem: Patient is finished course of Dexamethasone and REMDESIVIR (3) Hypertension Current Visit: Yes Status: Acute Plan to address problem: Management as per primary care. (4) Pneumonia Current Visit: Yes Status: Acute Qualifiers: Pneumonia type: due to unspecified organism Laterality: bilateral Lung location: unspecified part of lung Qualified Code(s): J18.9 - Pneumonia, unspecified organism Plan to address problem: Patient is on short course of ceftriaxone and zithromax. Antibiotics as per infectious diseases. Subjective Date of service: 12/19/20 Principal diagnosis: Ac hypoxemic resp failure; COVID-19 infxn; Pneumonia; Sepsis Interval history: 50-year-old female with history of hypertension was brought to the emergency room because of shortness of breath, cough, fever, Covid positive. Patient was diagnosed with COVID-19 1 week ago. Since then patient complained of worsening shortness of breath. Patient states she has not seen a physician for this. Patient states she does not take any medicine. Patient states the fever is fluctuating. Patient states it responds well to Tylenol. Patient states her cough is dry. Patient states she has not been vaccinated for COVID-19. Patient complains of chills. Patient denies nausea vomiting. Patient denies diarrhea. Patient denies abdominal pain. Patient denies chest pain. patient's ox saturation was 82%. Patient was found to have acute respiratory failure. Patient WBC 17.0 and chest x-ray shows pneumonia secondary to Covid. Patient was put on BiPAP Patient sleepy . Patient is resting on vapotherm , FIO2 70% and O2 saturation running 100%. Recommend slowly taper FIO2 and Keep O2 saturation above 92% Patient afebrile and has mild leukocytosis. Blood pressure 90/47 Pulse 61 Chest xray done 12/07/20 reported here is patchy diffuse ground glass predominant airspace disease and also mild bibasilar consolidation/atelectasis. No pleural effusion. CT of chest done 12/08/20 reported Negative for PTE. Pulmonary findings as above suggesting an atypical etiology versus interstitial edema. Venous doppler studies of legs 12/08/20 No sonographic evidence for DVT in either lower extremity. Patient presently on S/C Lovenox, Famotidine.Albuterol inhaler. Patient finished course of dexamethasone and REMDESIVIR. Objective Vital Signs - 12hr 12/19/20 12/19/20 12/19/20 01:00 01:10 02:00 Temperature Pulse Rate 56 L 64 58 L Pulse Rate [ From Monitor] Respiratory Rate Blood Pressure 82/45 107/62 O2 Sat by Pulse 100 100 Oximetry 12/19/20 12/19/20 12/19/20 03:00 04:00 04:16 Temperature 97.9 F Pulse Rate 61 58 L Pulse Rate [ 58 L From Monitor] Respiratory 22 22 16 Rate Blood Pressure 95/61 95/61 O2 Sat by Pulse 100 100 Oximetry 12/19/20 12/19/20 12/19/20 04:25 05:00 06:00 Temperature Pulse Rate 52 L 51 L 52 L Pulse Rate [ From Monitor] Respiratory 13 12 Rate Blood Pressure 94/54 82/50 O2 Sat by Pulse 100 100 Oximetry 12/19/20 12/19/20 12/19/20 07:00 07:41 07:42 Temperature 98.0 F 98.0 F Pulse Rate 59 L Pulse Rate [ From Monitor] Respiratory 13 Rate Blood Pressure 90/52 O2 Sat by Pulse 100 Oximetry 12/19/20 12/19/20 12/19/20 08:00 08:43 09:00 Temperature Pulse Rate 69 57 L Pulse Rate [ From Monitor] Respiratory Rate Blood Pressure 112/71 86/50 O2 Sat by Pulse 100 100 100 Oximetry 12/19/20 12/19/20 12/19/20 10:00 11:00 12:00 Temperature Pulse Rate 68 59 L 90 Pulse Rate [ From Monitor] Respiratory Rate Blood Pressure 93/51 96/51 90/47 O2 Sat by Pulse 100 100 96 Oximetry 12/19/20 12:11 Temperature 98.1 F Pulse Rate Pulse Rate [ From Monitor] Respiratory Rate Blood Pressure O2 Sat by Pulse Oximetry Constitutional: no acute distress, asleep Eyes: non-icteric ENT: oropharynx moist Neck: supple, no lymphadenopathy, no JVD Effort: mildly labored Ascultation: Bilateral: rhonchi Percussion: Bilateral: not dull Cardiovascular: regular rate and rhythm Gastrointestinal: normoactive bowel sounds, soft, non-tender, non-distended Integumentary: normal Extremities: no cyanosis, no edema, pulses normal, no ischemia or petechiae Neurologic: normal mental status, non-focal exam, pupils equal and round, CN II- XII normal, motor strength normal and Psychiatric: mood appropriate, anxious CBC and BMP: 12/13/20 07:25 12/13/20 07:25 ABG, PT/INR, D-dimer: ABG ABG pH 7.449 (7.320-7.450) 12/10/20 08:45 POC ABG pCO2 36.5 mmHg (32.0-48.0) 12/10/20 08:45 POC ABG pO2 64.5 mmHg (83-108) L 12/10/20 08:45 POC ABG HCO3 24.7 12/10/20 08:45 ABG O2 Saturation 91.0 (0-100) 12/10/20 08:45 PT/INR, D-dimer PT 16.4 Sec. (12.2-14.9) H 12/08/20 00:15 INR 1.27 (0.87-1.13) H 12/08/20 00:15 D-Dimer 660.07 ng/mlDDU (0-234) H 12/15/20 04:37 Abnormal lab findings: Abnormal Labs 12/08/20 12/08/20 12/08/20 00:15 00:15 00:15 WBC 17.0 H RBC 5.40 H Hgb 8.3 L Hct 29.7 L MCV 55 L MCH 16 L MCHC 28 L RDW 25.0 H Plt Count 464 H Dent # (Auto) Seg Neutrophils % Seg Neuts % (Manual) 92.0 H Lymphocytes % (Manual) 1.0 L Nucleated RBC % Seg Neutrophils # Seg Neutrophils # Man 15.6 H Lymphocytes # (Manual) 0.2 L Monocytes # (Manual) PT 16.4 H INR 1.27 H D-Dimer 1129.87 H POC ABG pO2 ABG Hemoglobin ABG Oxyhemoglobin ABG Potassium ABG Chloride ABG Glucose Potassium 3.1 L Chloride BUN Creatinine Glucose 128 H Lactic Acid Calcium 8.3 L Ferritin Total Bilirubin 1.90 H Direct Bilirubin AST 309 H ALT 1384 H Alkaline Phosphatase 440 H Lactate Dehydrogenase C-Reactive Protein Total Protein Albumin 3.2 L Arterial Blood Glucose Coronavirus (PCR) 12/08/20 12/08/20 12/08/20 00:15 00:15 00:15 WBC RBC Hgb Hct MCV MCH MCHC RDW Plt Count Dent # (Auto) Seg Neutrophils % Seg Neuts % (Manual) Lymphocytes % (Manual) Nucleated RBC % Seg Neutrophils # Seg Neutrophils # Man Lymphocytes # (Manual) Monocytes # (Manual) PT INR D-Dimer POC ABG pO2 ABG Hemoglobin ABG Oxyhemoglobin ABG Potassium ABG Chloride ABG Glucose Potassium Chloride BUN Creatinine Glucose Lactic Acid 2.30 H* Calcium Ferritin 289.8 H Total Bilirubin Direct Bilirubin AST ALT Alkaline Phosphatase Lactate Dehydrogenase 608 H C-Reactive Protein 20.70 H Total Protein Albumin Arterial Blood Glucose Coronavirus (PCR) 12/08/20 12/08/20 12/08/20 02:16 09:49 10:30 WBC RBC Hgb Hct MCV MCH MCHC RDW Plt Count Dent # (Auto) Seg Neutrophils % Seg Neuts % (Manual) Lymphocytes % (Manual) Nucleated RBC % Seg Neutrophils # Seg Neutrophils # Man Lymphocytes # (Manual) Monocytes # (Manual) PT INR D-Dimer POC ABG pO2 ABG Hemoglobin ABG Oxyhemoglobin ABG Potassium ABG Chloride ABG Glucose Potassium Chloride BUN Creatinine Glucose Lactic Acid 2.50 H* 2.40 H* Calcium Ferritin Total Bilirubin Direct Bilirubin AST ALT Alkaline Phosphatase Lactate Dehydrogenase C-Reactive Protein Total Protein Albumin Arterial Blood Glucose Coronavirus (PCR) Positive A 12/09/20 12/09/20 12/09/20 04:33 04:33 09:13 WBC 21.0 H RBC 5.12 H Hgb 8.2 L Hct 29.1 L MCV 57 L MCH 16 L MCHC 28 L RDW 24.6 H Plt Count 509 H Dent # (Auto) 1.3 H Seg Neutrophils % 84.3 H Seg Neuts % (Manual) 93.0 H Lymphocytes % (Manual) 2.0 L Nucleated RBC % 2.0 H Seg Neutrophils # 17.8 H Seg Neutrophils # Man 19.5 H Lymphocytes # (Manual) 0.4 L Monocytes # (Manual) PT INR D-Dimer POC ABG pO2 ABG Hemoglobin ABG Oxyhemoglobin ABG Potassium ABG Chloride ABG Glucose Potassium 3.5 L Chloride BUN 30 H 29 H Creatinine Glucose 190 H 129 H Lactic Acid Calcium Ferritin Total Bilirubin Direct Bilirubin AST 276 H ALT 867 H Alkaline Phosphatase 685 H Lactate Dehydrogenase C-Reactive Protein Total Protein Albumin 3.1 L Arterial Blood Glucose Coronavirus (PCR) 12/09/20 12/10/20 12/10/20 19:16 05:04 05:04 WBC RBC Hgb Hct MCV MCH MCHC RDW Plt Count Dent # (Auto) Seg Neutrophils % Seg Neuts % (Manual) Lymphocytes % (Manual) Nucleated RBC % Seg Neutrophils # Seg Neutrophils # Man Lymphocytes # (Manual) Monocytes # (Manual) PT INR D-Dimer POC ABG pO2 ABG Hemoglobin ABG Oxyhemoglobin ABG Potassium ABG Chloride ABG Glucose Potassium 3.4 L Chloride BUN 25 H Creatinine Glucose 184 H Lactic Acid 2.80 H* 3.30 H* Calcium 7.9 L Ferritin Total Bilirubin Direct Bilirubin AST 277 H ALT 722 H Alkaline Phosphatase 773 H Lactate Dehydrogenase C-Reactive Protein Total Protein Albumin 2.9 L Arterial Blood Glucose Coronavirus (PCR) 12/10/20 12/10/20 12/10/20 08:11 08:45 11:15 WBC RBC Hgb Hct MCV MCH MCHC RDW Plt Count Dent # (Auto) Seg Neutrophils % Seg Neuts % (Manual) Lymphocytes % (Manual) Nucleated RBC % Seg Neutrophils # Seg Neutrophils # Man Lymphocytes # (Manual) Monocytes # (Manual) PT INR D-Dimer POC ABG pO2 64.5 L ABG Hemoglobin 7.6 L ABG Oxyhemoglobin 90.2 L ABG Potassium 3.3 L ABG Chloride 108.0 H ABG Glucose 126 H Potassium Chloride BUN Creatinine Glucose Lactic Acid 2.10 H* 2.40 H* Calcium Ferritin Total Bilirubin Direct Bilirubin AST ALT Alkaline Phosphatase Lactate Dehydrogenase C-Reactive Protein Total Protein Albumin Arterial Blood Glucose 126 H Coronavirus (PCR) 12/10/20 12/10/20 12/11/20 13:36 19:13 00:49 WBC RBC Hgb Hct MCV MCH MCHC RDW Plt Count Dent # (Auto) Seg Neutrophils % Seg Neuts % (Manual) Lymphocytes % (Manual) Nucleated RBC % Seg Neutrophils # Seg Neutrophils # Man Lymphocytes # (Manual) Monocytes # (Manual) PT INR D-Dimer POC ABG pO2 ABG Hemoglobin ABG Oxyhemoglobin ABG Potassium ABG Chloride ABG Glucose Potassium 3.4 L Chloride BUN Creatinine Glucose Lactic Acid 3.40 H* 2.30 H* Calcium Ferritin Total Bilirubin Direct Bilirubin AST ALT Alkaline Phosphatase Lactate Dehydrogenase C-Reactive Protein Total Protein Albumin Arterial Blood Glucose Coronavirus (PCR) 12/11/20 12/11/20 12/11/20 05:34 05:34 10:06 WBC RBC Hgb Hct MCV MCH MCHC RDW Plt Count Dent # (Auto) Seg Neutrophils % Seg Neuts % (Manual) Lymphocytes % (Manual) Nucleated RBC % Seg Neutrophils # Seg Neutrophils # Man Lymphocytes # (Manual) Monocytes # (Manual) PT INR D-Dimer POC ABG pO2 ABG Hemoglobin ABG Oxyhemoglobin ABG Potassium ABG Chloride ABG Glucose Potassium Chloride 108.1 H BUN Creatinine 0.4 L Glucose 160 H Lactic Acid 2.30 H* 2.90 H* Calcium 8.3 L Ferritin Total Bilirubin Direct Bilirubin AST 249 H ALT 589 H Alkaline Phosphatase 701 H Lactate Dehydrogenase C-Reactive Protein Total Protein 5.9 L Albumin 3.0 L Arterial Blood Glucose Coronavirus (PCR) 12/11/20 12/11/20 12/11/20 12:38 12:38 12:38 WBC RBC Hgb Hct MCV MCH MCHC RDW Plt Count Dent # (Auto) Seg Neutrophils % Seg Neuts % (Manual) Lymphocytes % (Manual) Nucleated RBC % Seg Neutrophils # Seg Neutrophils # Man Lymphocytes # (Manual) Monocytes # (Manual) PT INR D-Dimer 725.41 H POC ABG pO2 ABG Hemoglobin ABG Oxyhemoglobin ABG Potassium ABG Chloride ABG Glucose Potassium Chloride BUN Creatinine Glucose Lactic Acid 2.50 H* Calcium Ferritin Total Bilirubin Direct Bilirubin AST ALT Alkaline Phosphatase Lactate Dehydrogenase 447 H C-Reactive Protein 2.90 H Total Protein Albumin Arterial Blood Glucose Coronavirus (PCR) 12/12/20 12/12/20 12/12/20 05:01 05:01 05:01 WBC 15.3 H RBC Hgb 8.1 L Hct 28.4 L MCV 57 L MCH 16 L MCHC 29 L RDW 25.0 H Plt Count 809 H Dent # (Auto) Seg Neutrophils % Seg Neuts % (Manual) 83.0 H Lymphocytes % (Manual) 10.0 L Nucleated RBC % 2.0 H Seg Neutrophils # Seg Neutrophils # Man 12.7 H Lymphocytes # (Manual) Monocytes # (Manual) 1.1 H PT INR D-Dimer 752.84 H POC ABG pO2 ABG Hemoglobin ABG Oxyhemoglobin ABG Potassium ABG Chloride ABG Glucose Potassium Chloride BUN 20 H Creatinine 0.4 L Glucose 120 H Lactic Acid Calcium Ferritin Total Bilirubin Direct Bilirubin AST 121 H ALT 469 H Alkaline Phosphatase 633 H Lactate Dehydrogenase 511 H C-Reactive Protein 3.50 H Total Protein Albumin 3.1 L Arterial Blood Glucose Coronavirus (PCR) 12/13/20 12/13/20 12/14/20 07:25 07:25 13:54 WBC 11.2 H RBC Hgb 7.2 L Hct 24.3 L MCV 57 L MCH 17 L MCHC RDW 25.5 H Plt Count 634 H Dent # (Auto) Seg Neutrophils % Seg Neuts % (Manual) Lymphocytes % (Manual) Nucleated RBC % Seg Neutrophils # Seg Neutrophils # Man Lymphocytes # (Manual) Monocytes # (Manual) PT INR D-Dimer POC ABG pO2 ABG Hemoglobin ABG Oxyhemoglobin ABG Potassium ABG Chloride ABG Glucose Potassium Chloride 107.6 H BUN 25 H Creatinine 0.4 L Glucose 132 H Lactic Acid Calcium Ferritin Total Bilirubin Direct Bilirubin 0.3 H 0.4 H AST 72 H 115 H ALT 295 H 318 H Alkaline Phosphatase 466 H 617 H Lactate Dehydrogenase C-Reactive Protein Total Protein 6.1 L Albumin 2.7 L 3.0 L Arterial Blood Glucose Coronavirus (PCR) 12/14/20 12/14/20 12/15/20 13:54 13:54 04:37 WBC RBC Hgb Hct MCV MCH MCHC RDW Plt Count Dent # (Auto) Seg Neutrophils % Seg Neuts % (Manual) Lymphocytes % (Manual) Nucleated RBC % Seg Neutrophils # Seg Neutrophils # Man Lymphocytes # (Manual) Monocytes # (Manual) PT INR D-Dimer 806.70 H POC ABG pO2 ABG Hemoglobin ABG Oxyhemoglobin ABG Potassium ABG Chloride ABG Glucose Potassium Chloride BUN Creatinine Glucose Lactic Acid Calcium Ferritin Total Bilirubin Direct Bilirubin 0.3 H AST 97 H ALT 281 H Alkaline Phosphatase 553 H Lactate Dehydrogenase C-Reactive Protein 1.70 H Total Protein 6.2 L Albumin 2.8 L Arterial Blood Glucose Coronavirus (PCR) 12/15/20 04:37 WBC RBC Hgb Hct MCV MCH MCHC RDW Plt Count Dent # (Auto) Seg Neutrophils % Seg Neuts % (Manual) Lymphocytes % (Manual) Nucleated RBC % Seg Neutrophils # Seg Neutrophils # Man Lymphocytes # (Manual) Monocytes # (Manual) PT INR D-Dimer 660.07 H POC ABG pO2 ABG Hemoglobin ABG Oxyhemoglobin ABG Potassium ABG Chloride ABG Glucose Potassium Chloride BUN Creatinine Glucose Lactic Acid Calcium Ferritin Total Bilirubin Direct Bilirubin AST ALT Alkaline Phosphatase Lactate Dehydrogenase C-Reactive Protein Total Protein Albumin Arterial Blood Glucose Coronavirus (PCR) Allied health notes reviewed: nursing
[2020-12-19] MEDS: oxyCODONE /ACETAMINOPHEN 5-325MG TAB PO PRN ×2 (14:43→22:39)
[2020-12-19] MEDS: ACETAMINOPHEN 325 MG TAB PO PRN (22:39)
[2020-12-20] MEDS: CHOLECALCIFEROL (VIT D3) 1000 UNIT (25 mcg) TAB PO SCH (09:37)
[2020-12-20] MEDS: ASCORBIC ACID 500 MG TAB PO SCH ×2 (09:37→21:40)
[2020-12-20] MEDS: FAMOTIDINE 20 MG TAB PO SCH ×2 (09:37→21:40)
[2020-12-20] MEDS: LISINOPRIL 20 MG TAB PO SCH (09:38)
[2020-12-20] MEDS: ENOXAPARIN 80 MG/0.8 ML INJ SUB-Q SCH ×2 (09:38→21:41)
[2020-12-20] MEDS: ZINC SULFATE 220 MG CAP PO SCH (09:39)
[2020-12-20] MEDS: guaiFENesin DM 200/20 MG ORAL LIQD 10 ML PO PRN ×2 (09:46→21:55)
--- NOTE | 2020-12-20 12:15 | Progress Note ---
Assessment and Plan 50-year-old female with history of hypertension was brought to the emergency room because of shortness of breath, cough, fever, Covid positive. Patient was diagnosed with COVID-19 1 week ago. Since then patient complained of worsening shortness of breath. Patient states she has not seen a physician for this. Patient states she does not take any medicine. Patient states the fever is fluctuating. Patient states it responds well to Tylenol. Patient states her cough is dry. Patient states she has not been vaccinated for COVID-19. Patient complains of chills. Patient denies nausea vomiting. Patient denies diarrhea. Patient denies abdominal pain. Patient denies chest pain. patient's ox saturation was 82%. Patient was found to have acute respiratory failure. Patient WBC 17.0 and chest x-ray shows pneumonia secondary to Covid. Patient was put on BiPAP Patient awake. weak. Complaining cough . Patient is on vapotherm , FIO2 70% and O2 saturation running 99%. Recommend slowly taper FIO2 and Keep O2 saturation above 92% Patient running low grade temp and has mild leukocytosis. Blood pressure 108/66,Pulse 94 Chest xray done 12/07/20 reported here is patchy diffuse ground glass predominant airspace disease and also mild bibasilar consolidation/atelectasis. No pleural effusion. CT of chest done 12/08/20 reported Negative for PTE. Pulmonary findings as above suggesting an atypical etiology versus interstitial edema. Venous doppler studies of legs 12/08/20 No sonographic evidence for DVT in either lower extremity. Patient transfered to medical floor. Patient presently on S/C Lovenox, Famotidine.Albuterol inhaler. Adding phenergan for cough and nausea. Patient finished course of dexamethasone and REMDESIVIR. - Patient Problems (1) Acute respiratory failure Current Visit: Yes Status: Acute Plan to address problem: Vapotherm, FIO2 70%. Finished course of dexamethasone and Remdesivir Continue S/C Lovenox. Continue Famotidine. Albuterol inhaler (2) COVID-19 Current Visit: Yes Status: Acute Plan to address problem: Patient is finished course of Dexamethasone and REMDESIVIR (3) Hypertension Current Visit: Yes Status: Acute Plan to address problem: Management as per primary care. (4) Pneumonia Current Visit: Yes Status: Acute Qualifiers: Pneumonia type: due to unspecified organism Laterality: bilateral Lung location: unspecified part of lung Qualified Code(s): J18.9 - Pneumonia, unspecified organism Plan to address problem: Patient is on short course of ceftriaxone and zithromax. Antibiotics as per infectious diseases. Subjective Date of service: 12/20/20 Principal diagnosis: Ac hypoxemic resp failure; COVID-19 infxn; Pneumonia; Sepsis Interval history: 50-year-old female with history of hypertension was brought to the emergency room because of shortness of breath, cough, fever, Covid positive. Patient was diagnosed with COVID-19 1 week ago. Since then patient complained of worsening shortness of breath. Patient states she has not seen a physician for this. P atient states she does not take any medicine. Patient states the fever is fluctuating. Patient states it responds well to Tylenol. Patient states her cough is dry. Patient states she has not been vaccinated for COVID-19. Patient complains of chills. Patient denies nausea vomiting. Patient denies diarrhea. Patient denies abdominal pain. Patient denies chest pain. patient's ox saturation was 82%. Patient was found to have acute respiratory failure. Patient WBC 17.0 and chest x-ray shows pneumonia secondary to Covid. Patient was put on BiPAP Patient awake. weak. Complaining cough . Patient is on vapotherm , FIO2 70% and O2 saturation running 99%. Recommend slowly taper FIO2 and Keep O2 saturation above 92% Patient running low grade temp and has mild leukocytosis. Blood pressure 108/66,Pulse 94 Chest xray done 12/07/20 reported here is patchy diffuse ground glass predominant airspace disease and also mild bibasilar consolidation/atelectasis. No pleural effusion. CT of chest done 12/08/20 reported Negative for PTE. Pulmonary findings as above suggesting an atypical etiology versus interstitial edema. Venous doppler studies of legs 12/08/20 No sonographic evidence for DVT in either lower extremity. Patient transfered to medical floor. Patient presently on S/C Lovenox, Famotidine.Albuterol inhaler. Adding phenergan for cough and nausea. Patient finished course of dexamethasone and REMDESIVIR. Objective - Exam Narrative Exam: VITAL SIGNS: Reviewed. GENERAL: The patient appears normally developed, otherwise short of breath, vital signs as documented. HEAD: No signs of head trauma. EYES: Pupils are equal. Extraocular motions intact. EARS: Hearing grossly intact. MOUTH: Oropharynx is normal. NECK: No adenopathy, no JVD. CHEST: Chest with diminshed breath sounds bilaterally. No wheezes, rales, or rhonchi. CARDIAC: Regular rate and rhythm. S1 and S2, without murmurs, gallops, or rubs. VASCULAR: No Edema. Peripheral pulses normal and equal in all extremities. ABDOMEN: Soft, non tender and non distended. No rebound or guarding, and no masses palpated. Bowel Sounds normal. MUSCULOSKELETAL: Good range of motion of all major joints. Extremities without clubbing, cyanosis or edema. NEUROLOGIC EXAM: Alert and oriented x 3 No focal sensory or strength deficits. Speech normal. Follows commands. PSYCHIATRIC: Mood normal but intermittently anxious, not at the moment SKIN: detail exam as documented in skin assessment Vital Signs - 12hr 12/20/20 12/20/20 12/20/20 01:00 02:00 03:30 Temperature Pulse Rate 82 70 69 Pulse Rate [ From Monitor] Respiratory 24 24 Rate Blood Pressure 96/63 97/58 90/50 O2 Sat by Pulse 100 100 100 Oximetry 12/20/20 12/20/20 12/20/20 04:00 04:30 05:00 Temperature Pulse Rate 68 76 81 Pulse Rate [ From Monitor] Respiratory 29 H 24 Rate Blood Pressure 98/58 106/58 O2 Sat by Pulse 100 100 Oximetry 12/20/20 12/20/20 12/20/20 05:30 06:00 06:30 Temperature Pulse Rate 64 69 64 Pulse Rate [ From Monitor] Respiratory Rate Blood Pressure 98/56 96/61 93/57 O2 Sat by Pulse 100 100 100 Oximetry 12/20/20 12/20/20 12/20/20 07:00 07:30 08:00 Temperature 98 F Pulse Rate 63 65 66 Pulse Rate [ 57 L From Monitor] Respiratory 22 Rate Blood Pressure 85/52 82/51 105/65 O2 Sat by Pulse 100 100 100 Oximetry 12/20/20 12/20/20 12/20/20 08:30 09:00 09:30 Temperature Pulse Rate 71 61 78 Pulse Rate [ From Monitor] Respiratory Rate Blood Pressure 100/68 95/53 103/67 O2 Sat by Pulse 100 100 100 Oximetry 12/20/20 12/20/20 12/20/20 09:38 10:00 10:12 Temperature Pulse Rate 72 87 Pulse Rate [ From Monitor] Respiratory Rate Blood Pressure 103/67 113/71 O2 Sat by Pulse 100 100 Oximetry Constitutional: no acute distress, alert Eyes: non-icteric ENT: oropharynx moist Neck: supple, no lymphadenopathy, no JVD Effort: mildly labored Ascultation: Bilateral: rhonchi Percussion: Bilateral: not dull Cardiovascular: regular rate and rhythm Gastrointestinal: normoactive bowel sounds, soft, non-tender, non-distended Integumentary: normal Extremities: no cyanosis, no edema, pulses normal, no ischemia or petechiae Neurologic: normal mental status, non-focal exam, pupils equal and round, CN II- XII normal, motor strength normal and Psychiatric: mood appropriate, anxious CBC and BMP: 12/13/20 07:25 12/13/20 07:25 ABG, PT/INR, D-dimer: ABG ABG pH 7.449 (7.320-7.450) 12/10/20 08:45 POC ABG pCO2 36.5 mmHg (32.0-48.0) 12/10/20 08:45 POC ABG pO2 64.5 mmHg (83-108) L 12/10/20 08:45 POC ABG HCO3 24.7 12/10/20 08:45 ABG O2 Saturation 91.0 (0-100) 12/10/20 08:45 PT/INR, D-dimer PT 16.4 Sec. (12.2-14.9) H 12/08/20 00:15 INR 1.27 (0.87-1.13) H 12/08/20 00:15 D-Dimer 660.07 ng/mlDDU (0-234) H 12/15/20 04:37 Abnormal lab findings: Abnormal Labs 12/08/20 12/08/20 12/08/20 00:15 00:15 00:15 WBC 17.0 H RBC 5.40 H Hgb 8.3 L Hct 29.7 L MCV 55 L MCH 16 L MCHC 28 L RDW 25.0 H Plt Count 464 H Oliver # (Auto) Seg Neutrophils % Seg Neuts % (Manual) 92.0 H Lymphocytes % (Manual) 1.0 L Nucleated RBC % Seg Neutrophils # Seg Neutrophils # Man 15.6 H Lymphocytes # (Manual) 0.2 L Monocytes # (Manual) PT 16.4 H INR 1.27 H D-Dimer 1129.87 H POC ABG pO2 ABG Hemoglobin ABG Oxyhemoglobin ABG Potassium ABG Chloride ABG Glucose Potassium 3.1 L Chloride BUN Creatinine Glucose 128 H Lactic Acid Calcium 8.3 L Ferritin Total Bilirubin 1.90 H Direct Bilirubin AST 309 H ALT 1384 H Alkaline Phosphatase 440 H Lactate Dehydrogenase C-Reactive Protein Total Protein Albumin 3.2 L Arterial Blood Glucose Coronavirus (PCR) 12/08/20 12/08/20 12/08/20 00:15 00:15 00:15 WBC RBC Hgb Hct MCV MCH MCHC RDW Plt Count Oliver # (Auto) Seg Neutrophils % Seg Neuts % (Manual) Lymphocytes % (Manual) Nucleated RBC % Seg Neutrophils # Seg Neutrophils # Man Lymphocytes # (Manual) Monocytes # (Manual) PT INR D-Dimer POC ABG pO2 ABG Hemoglobin ABG Oxyhemoglobin ABG Potassium ABG Chloride ABG Glucose Potassium Chloride BUN Creatinine Glucose Lactic Acid 2.30 H* Calcium Ferritin 289.8 H Total Bilirubin Direct Bilirubin AST ALT Alkaline Phosphatase Lactate Dehydrogenase 608 H C-Reactive Protein 20.70 H Total Protein Albumin Arterial Blood Glucose Coronavirus (PCR) 12/08/20 12/08/20 12/08/20 02:16 09:49 10:30 WBC RBC Hgb Hct MCV MCH MCHC RDW Plt Count Oliver # (Auto) Seg Neutrophils % Seg Neuts % (Manual) Lymphocytes % (Manual) Nucleated RBC % Seg Neutrophils # Seg Neutrophils # Man Lymphocytes # (Manual) Monocytes # (Manual) PT INR D-Dimer POC ABG pO2 ABG Hemoglobin ABG Oxyhemoglobin ABG Potassium ABG Chloride ABG Glucose Potassium Chloride BUN Creatinine Glucose Lactic Acid 2.50 H* 2.40 H* Calcium Ferritin Total Bilirubin Direct Bilirubin AST ALT Alkaline Phosphatase Lactate Dehydrogenase C-Reactive Protein Total Protein Albumin Arterial Blood Glucose Coronavirus (PCR) Positive A 12/09/20 12/09/20 12/09/20 04:33 04:33 09:13 WBC 21.0 H RBC 5.12 H Hgb 8.2 L Hct 29.1 L MCV 57 L MCH 16 L MCHC 28 L RDW 24.6 H Plt Count 509 H Oliver # (Auto) 1.3 H Seg Neutrophils % 84.3 H Seg Neuts % (Manual) 93.0 H Lymphocytes % (Manual) 2.0 L Nucleated RBC % 2.0 H Seg Neutrophils # 17.8 H Seg Neutrophils # Man 19.5 H Lymphocytes # (Manual) 0.4 L Monocytes # (Manual) PT INR D-Dimer POC ABG pO2 ABG Hemoglobin ABG Oxyhemoglobin ABG Potassium ABG Chloride ABG Glucose Potassium 3.5 L Chloride BUN 30 H 29 H Creatinine Glucose 190 H 129 H Lactic Acid Calcium Ferritin Total Bilirubin Direct Bilirubin AST 276 H ALT 867 H Alkaline Phosphatase 685 H Lactate Dehydrogenase C-Reactive Protein Total Protein Albumin 3.1 L Arterial Blood Glucose Coronavirus (PCR) 12/09/20 12/10/20 12/10/20 19:16 05:04 05:04 WBC RBC Hgb Hct MCV MCH MCHC RDW Plt Count Oliver # (Auto) Seg Neutrophils % Seg Neuts % (Manual) Lymphocytes % (Manual) Nucleated RBC % Seg Neutrophils # Seg Neutrophils # Man Lymphocytes # (Manual) Monocytes # (Manual) PT INR D-Dimer POC ABG pO2 ABG Hemoglobin ABG Oxyhemoglobin ABG Potassium ABG Chloride ABG Glucose Potassium 3.4 L Chloride BUN 25 H Creatinine Glucose 184 H Lactic Acid 2.80 H* 3.30 H* Calcium 7.9 L Ferritin Total Bilirubin Direct Bilirubin AST 277 H ALT 722 H Alkaline Phosphatase 773 H Lactate Dehydrogenase C-Reactive Protein Total Protein Albumin 2.9 L Arterial Blood Glucose Coronavirus (PCR) 12/10/20 12/10/20 12/10/20 08:11 08:45 11:15 WBC RBC Hgb Hct MCV MCH MCHC RDW Plt Count Oliver # (Auto) Seg Neutrophils % Seg Neuts % (Manual) Lymphocytes % (Manual) Nucleated RBC % Seg Neutrophils # Seg Neutrophils # Man Lymphocytes # (Manual) Monocytes # (Manual) PT INR D-Dimer POC ABG pO2 64.5 L ABG Hemoglobin 7.6 L ABG Oxyhemoglobin 90.2 L ABG Potassium 3.3 L ABG Chloride 108.0 H ABG Glucose 126 H Potassium Chloride BUN Creatinine Glucose Lactic Acid 2.10 H* 2.40 H* Calcium Ferritin Total Bilirubin Direct Bilirubin AST ALT Alkaline Phosphatase Lactate Dehydrogenase C-Reactive Protein Total Protein Albumin Arterial Blood Glucose 126 H Coronavirus (PCR) 12/10/20 12/10/20 12/11/20 13:36 19:13 00:49 WBC RBC Hgb Hct MCV MCH MCHC RDW Plt Count Oliver # (Auto) Seg Neutrophils % Seg Neuts % (Manual) Lymphocytes % (Manual) Nucleated RBC % Seg Neutrophils # Seg Neutrophils # Man Lymphocytes # (Manual) Monocytes # (Manual) PT INR D-Dimer POC ABG pO2 ABG Hemoglobin ABG Oxyhemoglobin ABG Potassium ABG Chloride ABG Glucose Potassium 3.4 L Chloride BUN Creatinine Glucose Lactic Acid 3.40 H* 2.30 H* Calcium Ferritin Total Bilirubin Direct Bilirubin AST ALT Alkaline Phosphatase Lactate Dehydrogenase C-Reactive Protein Total Protein Albumin Arterial Blood Glucose Coronavirus (PCR) 12/11/20 12/11/20 12/11/20 05:34 05:34 10:06 WBC RBC Hgb Hct MCV MCH MCHC RDW Plt Count Oliver # (Auto) Seg Neutrophils % Seg Neuts % (Manual) Lymphocytes % (Manual) Nucleated RBC % Seg Neutrophils # Seg Neutrophils # Man Lymphocytes # (Manual) Monocytes # (Manual) PT INR D-Dimer POC ABG pO2 ABG Hemoglobin ABG Oxyhemoglobin ABG Potassium ABG Chloride ABG Glucose Potassium Chloride 108.1 H BUN Creatinine 0.4 L Glucose 160 H Lactic Acid 2.30 H* 2.90 H* Calcium 8.3 L Ferritin Total Bilirubin Direct Bilirubin AST 249 H ALT 589 H Alkaline Phosphatase 701 H Lactate Dehydrogenase C-Reactive Protein Total Protein 5.9 L Albumin 3.0 L Arterial Blood Glucose Coronavirus (PCR) 12/11/20 12/11/20 12/11/20 12:38 12:38 12:38 WBC RBC Hgb Hct MCV MCH MCHC RDW Plt Count Oliver # (Auto) Seg Neutrophils % Seg Neuts % (Manual) Lymphocytes % (Manual) Nucleated RBC % Seg Neutrophils # Seg Neutrophils # Man Lymphocytes # (Manual) Monocytes # (Manual) PT INR D-Dimer 725.41 H POC ABG pO2 ABG Hemoglobin ABG Oxyhemoglobin ABG Potassium ABG Chloride ABG Glucose Potassium Chloride BUN Creatinine Glucose Lactic Acid 2.50 H* Calcium Ferritin Total Bilirubin Direct Bilirubin AST ALT Alkaline Phosphatase Lactate Dehydrogenase 447 H C-Reactive Protein 2.90 H Total Protein Albumin Arterial Blood Glucose Coronavirus (PCR) 12/12/20 12/12/20 12/12/20 05:01 05:01 05:01 WBC 15.3 H RBC Hgb 8.1 L Hct 28.4 L MCV 57 L MCH 16 L MCHC 29 L RDW 25.0 H Plt Count 809 H Oliver # (Auto) Seg Neutrophils % Seg Neuts % (Manual) 83.0 H Lymphocytes % (Manual) 10.0 L Nucleated RBC % 2.0 H Seg Neutrophils # Seg Neutrophils # Man 12.7 H Lymphocytes # (Manual) Monocytes # (Manual) 1.1 H PT INR D-Dimer 752.84 H POC ABG pO2 ABG Hemoglobin ABG Oxyhemoglobin ABG Potassium ABG Chloride ABG Glucose Potassium Chloride BUN 20 H Creatinine 0.4 L Glucose 120 H Lactic Acid Calcium Ferritin Total Bilirubin Direct Bilirubin AST 121 H ALT 469 H Alkaline Phosphatase 633 H Lactate Dehydrogenase 511 H C-Reactive Protein 3.50 H Total Protein Albumin 3.1 L Arterial Blood Glucose Coronavirus (PCR) 12/13/20 12/13/20 12/14/20 07:25 07:25 13:54 WBC 11.2 H RBC Hgb 7.2 L Hct 24.3 L MCV 57 L MCH 17 L MCHC RDW 25.5 H Plt Count 634 H Oliver # (Auto) Seg Neutrophils % Seg Neuts % (Manual) Lymphocytes % (Manual) Nucleated RBC % Seg Neutrophils # Seg Neutrophils # Man Lymphocytes # (Manual) Monocytes # (Manual) PT INR D-Dimer POC ABG pO2 ABG Hemoglobin ABG Oxyhemoglobin ABG Potassium ABG Chloride ABG Glucose Potassium Chloride 107.6 H BUN 25 H Creatinine 0.4 L Glucose 132 H Lactic Acid Calcium Ferritin Total Bilirubin Direct Bilirubin 0.3 H 0.4 H AST 72 H 115 H ALT 295 H 318 H Alkaline Phosphatase 466 H 617 H Lactate Dehydrogenase C-Reactive Protein Total Protein 6.1 L Albumin 2.7 L 3.0 L Arterial Blood Glucose Coronavirus (PCR) 12/14/20 12/14/20 12/15/20 13:54 13:54 04:37 WBC RBC Hgb Hct MCV MCH MCHC RDW Plt Count Oliver # (Auto) Seg Neutrophils % Seg Neuts % (Manual) Lymphocytes % (Manual) Nucleated RBC % Seg Neutrophils # Seg Neutrophils # Man Lymphocytes # (Manual) Monocytes # (Manual) PT INR D-Dimer 806.70 H POC ABG pO2 ABG Hemoglobin ABG Oxyhemoglobin ABG Potassium ABG Chloride ABG Glucose Potassium Chloride BUN Creatinine Glucose Lactic Acid Calcium Ferritin Total Bilirubin Direct Bilirubin 0.3 H AST 97 H ALT 281 H Alkaline Phosphatase 553 H Lactate Dehydrogenase C-Reactive Protein 1.70 H Total Protein 6.2 L Albumin 2.8 L Arterial Blood Glucose Coronavirus (PCR) 12/15/20 04:37 WBC RBC Hgb Hct MCV MCH MCHC RDW Plt Count Oliver # (Auto) Seg Neutrophils % Seg Neuts % (Manual) Lymphocytes % (Manual) Nucleated RBC % Seg Neutrophils # Seg Neutrophils # Man Lymphocytes # (Manual) Monocytes # (Manual) PT INR D-Dimer 660.07 H POC ABG pO2 ABG Hemoglobin ABG Oxyhemoglobin ABG Potassium ABG Chloride ABG Glucose Potassium Chloride BUN Creatinine Glucose Lactic Acid Calcium Ferritin Total Bilirubin Direct Bilirubin AST ALT Alkaline Phosphatase Lactate Dehydrogenase C-Reactive Protein Total Protein Albumin Arterial Blood Glucose Coronavirus (PCR) Allied health notes reviewed: nursing
[2020-12-20] MEDS: ACETAMINOPHEN 325 MG TAB PO PRN (14:49)
--- NOTE | 2020-12-20 16:43 | Progress Note ---
Assessment and Plan Assessment and plan: 50-year-old female with history of hypertension was brought to the emergency room because of shortness of breath, cough, fever, Covid positive. Patient was diagnosed with COVID-19 1 week ago. Since then patient complained of worsening shortness of breath. Patient states she has not seen a physician for this. Patient states she does not take any medicine. Patient states the fever is fluctuating. Patient states it responds well to Tylenol. Patient states her cough is dry. Patient states she has not been vaccinated for COVID-19. Patient complains of chills. Patient denies nausea vomiting. Patient denies diarrhea. Patient denies abdominal pain. Patient denies chest pain. Patient's ox saturation was 82%. Patient was found to have acute respiratory failure. Patient WBC 17.0 and chest x-ray shows pneumonia secondary to Covid. Patient was put on BiPAP (1) Acute hypoxic respiratory failure 2/2 Covid 19 PNA pulmonary following and note reviewed Patient is on 35% Fio2 with O2 sat 93-94% (2) COVID-19 Current Visit: Yes Status: Acute Plan to address problem: ID note reviewed inflammatory markers reviewed cont. Dexamethasone x 10 days Cleared for starting remdesivir as LFTs < 10 times normal monitor markers 3. Severe sepsis procalcitonin results reviewed ID note reviewed cont. ceftriaxone and azithromycin (4) LeuKocytosis: 2/2 sepsis monitor CBC (5) Hypertension Current Visit: Yes Status: Acute Plan to address problem: Hydralazine 10 mg IV every 6 hours as needed she has no hx of HTN 6) Transaminitis: results reviewed cont. to monitor (7) anemia (8) DVT prophylaxis Current Visit: Yes Status: Acute Plan to address problem: will stop heparin and start on lovenox. Pepcid 20 mg p.o. twice daily for GI prophylaxis. Patient is a full code. 12/09/2020 -Patient was on BiPAP with FiO2 of 100%, patient desaturated when she was off BiPAP momentarily. I put her on D5 half-normal saline for maintenance. Titrate oxygen as tolerated. -Pulmonary consulted, ID consulted. -Patient has elevated ALT and AST and is not a candidate for remdesivir. -Patient is on IV antibiotics and procalcitonin level is elevated, ID recommends to continue with IV antibiotics. ID said patient is not a candidate for Actemra because of the infection with elevated procalcitonin level. 12/10; patient is on BiPAP, on Decadron. Remdesivir discontinued due to elevated liver enzymes. Patient not a candidate for Actemra because patient has elevated procalcitonin level. Continue with IV antibiotics. Prognosis is guarded. 12/11patient is A&O,A&O, c/o weakness and feels tired. C/O shortness of breath. requesting stool sofner. She denies f/c/CP/N/abd. pain 12/12: Continue supportive care. Wean oxygen as tolerated. Will obtain pulmonary consult will evaluate for possible Lasix therapy. Noted anemia with hemoglobin of 8.1 will monitor this closely. D-dimer is elevated so is AST and ALT and alk phos. This may preclude use of medications such as remdesivir which has been discontinued in relation to this. Patient remains critically ill. 12/13: Patient showing some improve, still with BiPAP requirements, continue supportive care, continued sterods, Remdesivr per ID, monitor renal function closely and LFT. wean oxygen as tolerated. Prognosis guarded 12/14: Patient seen and examined, she is showing good improvement, down to 10 liters except that she gets anxious. I spoke extensively with the family and updated them on her clinical condition 12/15: Patient continues to show good improvement, weaned down to 5L of oxygen with saturation of 99%. Will transfer to Medical floor and continue current management. 12/16: Patient was doing well this am, on 5 liters and sating 95%, later desated and was placed back on BIPAP. reassurance and counselling provided 12/17: Patient remains on oxygen high flow. I believe that she will be able to be weaned if she if we can control her anxiety. Discussed with nursing staff at bedside also discussed with the patient. Will begin LTAC referral in a.m. 12/18/20 patient is seen and examined. Less shortness of breath. No chest pain. Anxious. Is on high flow oxygen at 40 L with 75% FiO2. We cut down the FiO2 75% from 80%. Wean oxygen. Continue current management. LTAC referral 12/19: Ms. Jarrett continues to show some improvement, She is currently on 70% FIO2 and satting 99%. Discussed with respiratory therapist will try to wean down further. Will transfer to [facility]. Continue to encourage slow deep breaths. Continue to use anxiolytics. Awaiting LTAC approval. Continue to monitor hemoglobin. 12/20: Patient seen and examined, patient needs to continue weaning of oxygen, satting 98% on 70%FIO2. Her anxiety level is improving, can transfer to [facility] cct 35 mins History Interval history: Patient seen and examined showing some improvement, she remains on high flow at 70% Hospitalist Physical - Physical exam Narrative exam: VITAL SIGNS: Reviewed. GENERAL: The patient appears normally developed, otherwise short of breath, vital signs as documented. HEAD: No signs of head trauma. EYES: Pupils are equal. Extraocular motions intact. EARS: Hearing grossly intact. MOUTH: Oropharynx is normal. NECK: No adenopathy, no JVD. CHEST: Chest with diminshed breath sounds bilaterally. No wheezes, rales, or rhonchi. CARDIAC: Regular rate and rhythm. S1 and S2, without murmurs, gallops, or rubs. VASCULAR: No Edema. Peripheral pulses normal and equal in all extremities. ABDOMEN: Soft, non tender and non distended. No rebound or guarding, and no masses palpated. Bowel Sounds normal. MUSCULOSKELETAL: Good range of motion of all major joints. Extremities without clubbing, cyanosis or edema. NEUROLOGIC EXAM: Alert and oriented x 3 No focal sensory or strength deficits. Speech normal. Follows commands. PSYCHIATRIC: Mood normal but intermittently anxious, not at the moment SKIN: detail exam as documented in skin assessment - Constitutional Vitals: Temp Pulse Resp BP Pulse Ox 99.2 F 92 H 20 84/64 97 12/20/20 12:15 12/20/20 14:00 12/20/20 12:00 12/20/20 14:00 12/20/20 15:44 General appearance: Present: no acute distress Results - Labs CBC & Chem 7: 12/13/20 07:25 12/13/20 07:25 Labs: Laboratory Last Values WBC 11.2 K/mm3 (4.5-11.0) H 12/13/20 07:25 RBC 4.26 M/mm3 (3.65-5.03) 12/13/20 07:25 Hgb 7.2 gm/dl (10.1-14.3) L 12/13/20 07:25 Hct 24.3 % (30.3-42.9) L 12/13/20 07:25 MCV 57 fl (79-97) L 12/13/20 07:25 MCH 17 pg (28-32) L 12/13/20 07:25 MCHC 30 % (30-34) 12/13/20 07:25 RDW 25.5 % (13.2-15.2) H 12/13/20 07:25 Plt Count 634 K/mm3 (140-440) H 12/13/20 07:25 [place] % (Auto) 6.0 % (0.0-7.3) 12/09/20 04:33 [place] # (Auto) 1.3 K/mm3 (0.0-0.8) H 12/09/20 04:33 Add Manual Diff Complete 12/12/20 05:01 Total Counted 100 12/12/20 05:01 Seg Neutrophils % 84.3 % (40.0-70.0) H 12/09/20 04:33 Seg Neuts % (Manual) 83.0 % (40.0-70.0) H 12/12/20 05:01 Band Neutrophils % 3.0 % 12/09/20 04:33 Lymphocytes % (Manual) 10.0 % (13.4-35.0) L 12/12/20 05:01 Monocytes % (Manual) 7.0 % (0.0-7.3) 12/12/20 05:01 Metamyelocytes % 1.0 % 12/08/20 00:15 Nucleated RBC % 2.0 % (0.0-0.9) H 12/12/20 05:01 Seg Neutrophils # 17.8 K/mm3 (1.8-7.7) H 12/09/20 04:33 Seg Neutrophils # Man 12.7 K/mm3 (1.8-7.7) H 12/12/20 05:01 Band Neutrophils # 0.0 K/mm3 12/12/20 05:01 Lymphocytes # (Manual) 1.5 K/mm3 (1.2-5.4) 12/12/20 05:01 Abs React Lymphs (Man) 0.0 K/mm3 12/12/20 05:01 Monocytes # (Manual) 1.1 K/mm3 (0.0-0.8) H 12/12/20 05:01 Eosinophils # (Manual) 0.0 K/mm3 (0.0-0.4) 12/12/20 05:01 Basophils # (Manual) 0.0 K/mm3 (0.0-0.1) 12/12/20 05:01 Metamyelocytes # 0.0 K/mm3 12/12/20 05:01 Myelocytes # 0.0 K/mm3 12/12/20 05:01 Promyelocytes # 0.0 K/mm3 12/12/20 05:01 Blast Cells # 0.0 K/mm3 12/12/20 05:01 WBC Morphology Not Reportable 12/12/20 05:01 Hypersegmented Neuts Not Reportable 12/12/20 05:01 Hyposegmented Neuts Not Reportable 12/12/20 05:01 Hypogranular Neuts Not Reportable 12/12/20 05:01 Smudge Cells Not Reportable 12/12/20 05:01 Toxic Granulation Not Reportable 12/12/20 05:01 Toxic Vacuolation Not Reportable 12/12/20 05:01 Dohle Bodies Not Reportable 12/12/20 05:01 Pelger-Huet Anomaly Not Reportable 12/12/20 05:01 Lauryn Rods Not Reportable 12/12/20 05:01 Platelet Estimate Consistent w auto 12/12/20 05:01 Clumped Platelets Not Reportable 12/12/20 05:01 Plt Clumps, EDTA Not Reportable 12/12/20 05:01 Large Platelets Not Reportable 12/12/20 05:01 Giant Platelets Not Reportable 12/12/20 05:01 Platelet Satelliting Not Reportable 12/12/20 05:01 Plt Morphology Comment Not Reportable 12/12/20 05:01 RBC Morphology Not Reportable 12/12/20 05:01 Dimorphic RBCs Not Reportable 12/12/20 05:01 Polychromasia Not Reportable 12/12/20 05:01 Hypochromasia 3+ 12/12/20 05:01 Poikilocytosis 1+ 12/12/20 05:01 Anisocytosis 2+ 12/12/20 05:01 Microcytosis 2+ 12/12/20 05:01 Macrocytosis Not Reportable 12/12/20 05:01 Spherocytes Not Reportable 12/12/20 05:01 Pappenheimer Bodies Not Reportable 12/12/20 05:01 Sickle Cells Not Reportable 12/12/20 05:01 Target Cells Not Reportable 12/12/20 05:01 Tear Drop Cells Few 12/12/20 05:01 Ovalocytes Few 12/12/20 05:01 Helmet Cells Not Reportable 12/12/20 05:01 Torres-Quinton Bodies Not Reportable 12/12/20 05:01 [place] Rings Not Reportable 12/12/20 05:01 Jens Cells Not Reportable 12/12/20 05:01 Bite Cells Not Reportable 12/12/20 05:01 Crenated Cell Not Reportable 12/12/20 05:01 Elliptocytes Few 12/12/20 05:01 Acanthocytes (Spur) Not Reportable 12/12/20 05:01 Rouleaux Not Reportable 12/12/20 05:01 Hemoglobin C Crystals Not Reportable 12/12/20 05:01 Schistocytes Not Reportable 12/12/20 05:01 Malaria parasites Not Reportable 12/12/20 05:01 Brant Bodies Not Reportable 12/12/20 05:01 Hem Pathologist Commnt No 12/12/20 05:01 PT 16.4 Sec. (12.2-14.9) H 12/08/20 00:15 INR 1.27 (0.87-1.13) H 12/08/20 00:15 APTT 29.6 Sec. (24.2-36.6) 12/08/20 00:15 D-Dimer 660.07 ng/mlDDU (0-234) H 12/15/20 04:37 ABG pH 7.449 (7.320-7.450) 12/10/20 08:45 POC ABG pCO2 36.5 mmHg (32.0-48.0) 12/10/20 08:45 POC ABG pO2 64.5 mmHg (83-108) L 12/10/20 08:45 POC ABG HCO3 24.7 12/10/20 08:45 ABG O2 Saturation 91.0 (0-100) 12/10/20 08:45 POC ABG Base Excess 0.8 12/10/20 08:45 ABG Hemoglobin 7.6 (12.0-17.5) L 12/10/20 08:45 ABG Oxyhemoglobin 90.2 (94-98) L 12/10/20 08:45 ABG Methemoglobin 0.1 (0.0-1.5) 12/10/20 08:45 ABG Sodium 139.9 mmol/L (136.0-145.0) 12/10/20 08:45 ABG Potassium 3.3 mmol/L (3.40-4.50) L 12/10/20 08:45 ABG Chloride 108.0 mmol/L (98-107) H 12/10/20 08:45 ABG Glucose 126 mg/dL (65-95) H 12/10/20 08:45 Carboxyhemoglobin 0.8 (0.5-1.5) 12/10/20 08:45 FiO2 % 35.0 12/10/20 08:45 Sodium 141 mmol/L (137-145) 12/13/20 07:25 Potassium 4.5 mmol/L (3.6-5.0) 12/13/20 07:25 Chloride 107.6 mmol/L (98-107) H 12/13/20 07:25 Carbon Dioxide 23 mmol/L (22-30) 12/13/20 07:25 Anion Gap 15 mmol/L 12/13/20 07:25 BUN 25 mg/dL (7-17) H 12/13/20 07:25 Creatinine 0.4 mg/dL (0.6-1.2) L 12/13/20 07:25 Estimated GFR > 60 ml/min 12/13/20 07:25 BUN/Creatinine Ratio 63 % 12/13/20 07:25 Glucose 132 mg/dL (65-100) H 12/13/20 07:25 Lactic Acid 2.50 mmol/L (0.7-2.0) H* 12/11/20 12:38 Calcium 8.4 mg/dL (8.4-10.2) 12/13/20 07:25 Ferritin 147.8 ng/mL (10.0-200.0) 12/15/20 04:37 Total Bilirubin 0.60 mg/dL (0.1-1.2) 12/15/20 04:37 Direct Bilirubin 0.3 mg/dL (0-0.2) H 12/15/20 04:37 Indirect Bilirubin 0.3 mg/dL 12/15/20 04:37 AST 97 units/L (5-40) H 12/15/20 04:37 ALT 281 units/L (7-56) H 12/15/20 04:37 Alkaline Phosphatase 553 units/L (35-129) H 12/15/20 04:37 Lactate Dehydrogenase 511 units/L (91-180) H 12/12/20 05:01 C-Reactive Protein 1.20 mg/dL (0.00-1.30) 12/15/20 04:37 Total Protein 6.2 g/dL (6.3-8.2) L 12/15/20 04:37 Albumin 2.8 g/dL (3.9-5) L 12/15/20 04:37 Albumin/Globulin Ratio 0.8 % 12/15/20 04:37 Procalcitonin 0.83 ng/mL (<0.15) 12/15/20 04:37 Arterial Blood Glucose 126 mg/dL (65-95) H 12/10/20 08:45 Coronavirus (PCR) Positive (Negative) A 12/08/20 10:30 Hepatitis A IgM Ab Non-reactive (NonReactive) 12/13/20 07:25 Hep Bs Antigen Nonreactive (Negative) 12/13/20 07:25 Hep B Core IgM Ab Non-reactive (NonReactive) 12/13/20 07:25 Hepatitis C Antibody Non-reactive (NonReactive) 12/13/20 07:25 [place]/IV: Voiding Method Indwelling Catheter Active Medications - Current Medications Current Medications: Generic Name Dose Route Start Last Admin Trade Name Freq PRN Reason Stop Dose Admin Acetaminophen 650 mg 12/08/20 05:31 12/20/20 14:49 Acetaminophen 325 Mg Tab PO 650 mg Q4H PRN Administration Pain MILD(1-3)/Fever >100.5/[place] Albuterol 2.5 mg 12/08/20 05:31 Albuterol 2.5 Mg/3 Ml Nebu IH Q4HRT PRN Shortness Of Breath Alprazolam 0.25 mg 12/16/20 13:09 12/19/20 22:43 Alprazolam 0.25 Mg Tab PO 0.25 mg Q6H PRN Administration Anxiety Ascorbic Acid 500 mg 12/09/20 10:00 12/20/20 09:37 Ascorbic Acid 500 Mg Tab PO 500 mg BID DARIAN Administration Cholecalciferol 1,000 unit 12/09/20 10:00 12/20/20 09:37 Cholecalciferol (Vit D3) 1000 Unit (25 Mcg) Tab PO 1,000 unit QDAY DARIAN Administration Enoxaparin Sodium 80 mg 12/19/20 10:00 12/20/20 09:38 Enoxaparin 80 Mg/0.8 Ml Inj SUB-Q 80 mg Q12HR DARIAN Administration Protocol Famotidine 20 mg 12/08/20 10:00 12/20/20 09:37 Famotidine 20 Mg Tab PO 20 mg BID DARIAN Administration Guaifenesin 10 ml 12/14/20 15:00 12/20/20 09:46 Guaifenesin Dm 200/20 Mg Oral Liqd 10 Ml PO 10 ml Q4H PRN Administration Cough Hydromorphone HCl 0.5 mg 12/08/20 05:31 12/19/20 04:16 Hydromorphone 1 Mg/1 Ml Inj IV 0.5 mg Q3H PRN Administration Pain , Severe (7-10) Lisinopril 20 mg 12/15/20 19:00 12/20/20 09:38 Lisinopril 20 Mg Tab PO 20 mg QDAY DARIAN Administration Ondansetron HCl 4 mg 12/08/20 05:31 Ondansetron 4 Mg/2 Ml Inj IV Q8H PRN Nausea And Vomiting Oxycodone/Acetaminophen 1 tab 12/08/20 05:31 12/19/20 22:39 Oxycodone /Acetaminophen 5-325mg Tab PO 1 tab Q6H PRN Administration Pain, Moderate (4-6) Polyethylene Glycol 17 gm 12/11/20 15:53 Polyethylene Glycol 3350 17 Gm Powder PO QDAY PRN Constipation Sodium Chloride 10 ml 12/08/20 10:00 12/20/20 09:38 Sodium Chloride 0.9% 10 Ml Flush Syringe IV 10 ml BID DARIAN Administration Sodium Chloride 10 ml 12/08/20 05:31 Sodium Chloride 0.9% 10 Ml Flush Syringe IV PRN PRN LINE FLUSH Zinc Sulfate 220 mg 12/09/20 10:00 12/20/20 09:39 Zinc Sulfate 220 Mg Cap PO 220 mg QDAY DARIAN Administration Nutrition/Malnutrition Assess - Dietary Evaluation Nutrition/Malnutrition Findings: Nutrition Notes Start: 12/18/20 14:21 Freq: Status: Active Protocol: Document 12/18/20 14:21 ARCHIE (Rec: 12/18/20 14:22 ARCHIE [id number]) Nutrition Notes Need for Assessment generated from: LOS Initial or Follow up Brief Note Subjective/Other Information Pt eating 100% of meals. Nutrition Intervention Revisit per MD consult or patient Sign Off request:
[2020-12-20] MEDS ORDERED: PROMETHAZINE 12.5 MG/10 ML ORAL LIQD PO PRN (21:54)
[2020-12-21] MEDS: ACETAMINOPHEN 325 MG TAB PO PRN ×3 (00:28→21:35)
[2020-12-21] MEDS: LISINOPRIL 20 MG TAB PO SCH (10:43)
[2020-12-21] MEDS: ENOXAPARIN 80 MG/0.8 ML INJ SUB-Q SCH ×2 (11:17→21:36)
[2020-12-21] MEDS: ASCORBIC ACID 500 MG TAB PO SCH ×2 (11:17→21:36)
[2020-12-21] MEDS: FAMOTIDINE 20 MG TAB PO SCH ×2 (11:19→21:36)
[2020-12-21] MEDS: CHOLECALCIFEROL (VIT D3) 1000 UNIT (25 mcg) TAB PO SCH (11:21)
--- NOTE | 2020-12-21 12:37 | Progress Note ---
Assessment and Plan Assessment and plan: 50-year-old female with history of hypertension was brought to the emergency room because of shortness of breath, cough, fever, Covid positive. Patient was diagnosed with COVID-19 1 week ago. Since then patient complained of worsening shortness of breath. Patient states she has not seen a physician for this. Patient states she does not take any medicine. Patient states the fever is fluctuating. Patient states it responds well to Tylenol. Patient states her cough is dry. Patient states she has not been vaccinated for COVID-19. Patient complains of chills. Patient denies nausea vomiting. Patient denies diarrhea. Patient denies abdominal pain. Patient denies chest pain. Patient's ox saturation was 82%. Patient was found to have acute respiratory failure. Patient WBC 17.0 and chest x-ray shows pneumonia secondary to Covid. Patient was put on BiPAP (1) Acute hypoxic respiratory failure 2/2 Covid 19 PNA pulmonary following and note reviewed Patient is on 35% Fio2 with O2 sat 93-94% (2) COVID-19 Current Visit: Yes Status: Acute Plan to address problem: ID note reviewed inflammatory markers reviewed cont. Dexamethasone x 10 days Cleared for starting remdesivir as LFTs < 10 times normal monitor markers 3. Severe sepsis procalcitonin results reviewed ID note reviewed cont. ceftriaxone and azithromycin (4) LeuKocytosis: 2/2 sepsis monitor CBC (5) Hypertension Current Visit: Yes Status: Acute Plan to address problem: Hydralazine 10 mg IV every 6 hours as needed she has no hx of HTN 6) Transaminitis: results reviewed cont. to monitor (7) anemia (8) DVT prophylaxis Current Visit: Yes Status: Acute Plan to address problem: will stop heparin and start on lovenox. Pepcid 20 mg p.o. twice daily for GI prophylaxis. Patient is a full code. 12/09/2020 -Patient was on BiPAP with FiO2 of 100%, patient desaturated when she was off BiPAP momentarily. I put her on D5 half-normal saline for maintenance. Titrate oxygen as tolerated. -Pulmonary consulted, ID consulted. -Patient has elevated ALT and AST and is not a candidate for remdesivir. -Patient is on IV antibiotics and procalcitonin level is elevated, ID recommends to continue with IV antibiotics. ID said patient is not a candidate for Actemra because of the infection with elevated procalcitonin level. 12/10; patient is on BiPAP, on Decadron. Remdesivir discontinued due to elevated liver enzymes. Patient not a candidate for Actemra because patient has elevated procalcitonin level. Continue with IV antibiotics. Prognosis is guarded. 12/11patient is A&O,A&O, c/o weakness and feels tired. C/O shortness of breath. requesting stool sofner. She denies f/c/CP/N/abd. pain 12/12: Continue supportive care. Wean oxygen as tolerated. Will obtain pulmonary consult will evaluate for possible Lasix therapy. Noted anemia with hemoglobin of 8.1 will monitor this closely. D-dimer is elevated so is AST and ALT and alk phos. This may preclude use of medications such as remdesivir which has been discontinued in relation to this. Patient remains critically ill. 12/13: Patient showing some improve, still with BiPAP requirements, continue supportive care, continued sterods, Remdesivr per ID, monitor renal function closely and LFT. wean oxygen as tolerated. Prognosis guarded 12/14: Patient seen and examined, she is showing good improvement, down to 10 liters except that she gets anxious. I spoke extensively with the family and updated them on her clinical condition 12/15: Patient continues to show good improvement, weaned down to 5L of oxygen with saturation of 99%. Will transfer to Medical floor and continue current management. 12/16: Patient was doing well this am, on 5 liters and sating 95%, later desated and was placed back on BIPAP. reassurance and counselling provided 12/17: Patient remains on oxygen high flow. I believe that she will be able to be weaned if she if we can control her anxiety. Discussed with nursing staff at bedside also discussed with the patient. Will begin LTAC referral in a.m. 12/18/20 patient is seen and examined. Less shortness of breath. No chest pain. Anxious. Is on high flow oxygen at 40 L with 75% FiO2. We cut down the FiO2 75% from 80%. Wean oxygen. Continue current management. LTAC referral 12/19: Ms. Jarrett continues to show some improvement, She is currently on 70% FIO2 and satting 99%. Discussed with respiratory therapist will try to wean down further. Will transfer to [facility]. Continue to encourage slow deep breaths. Continue to use anxiolytics. Awaiting LTAC approval. Continue to monitor hemoglobin. 12/20: Patient seen and examined, patient needs to continue weaning of oxygen, satting 98% on 70%FIO2. Her anxiety level is improving, can transfer to [facility] 12/21: Patient showing good disposition. Currently FiO2 is down to 50% with saturation of 96% we will continue current management. Continue to encourage prone position. History Interval history: Patient seen and examined showing some improvement, remarkable disposition today and improved affect. She remains on high flow at 50% Hospitalist Physical - Physical exam Narrative exam: VITAL SIGNS: Reviewed. GENERAL: The patient appears normally developed, still with shortness of breath but better affect, vital signs as documented. HEAD: No signs of head trauma. EYES: Pupils are equal. Extraocular motions intact. EARS: Hearing grossly intact. MOUTH: Oropharynx is normal. NECK: No adenopathy, no JVD. CHEST: Chest with diminshed breath sounds bilaterally. No wheezes, rales, or rhonchi. CARDIAC: Regular rate and rhythm. S1 and S2, without murmurs, gallops, or rub s. VASCULAR: No Edema. Peripheral pulses normal and equal in all extremities. ABDOMEN: Soft, non tender and non distended. No rebound or guarding, and no masses palpated. Bowel Sounds normal. MUSCULOSKELETAL: Good range of motion of all major joints. Extremities without clubbing, cyanosis or edema. NEUROLOGIC EXAM: Alert and oriented x 3 No focal sensory or strength deficits. Speech normal. Follows commands. PSYCHIATRIC: Mood normal not at the moment SKIN: detail exam as documented in skin assessment - Constitutional Vitals: Temp Pulse Resp BP Pulse Ox 99.0 F 80 18 117/74 100 12/21/20 03:53 12/21/20 03:53 12/21/20 03:53 12/21/20 03:53 12/21/20 11:21 General appearance: Present: no acute distress Results - Labs CBC & Chem 7: 12/13/20 07:25 12/13/20 07:25 Labs: Laboratory Last Values WBC 11.2 K/mm3 (4.5-11.0) H 12/13/20 07:25 RBC 4.26 M/mm3 (3.65-5.03) 12/13/20 07:25 Hgb 7.2 gm/dl (10.1-14.3) L 12/13/20 07:25 Hct 24.3 % (30.3-42.9) L 12/13/20 07:25 MCV 57 fl (79-97) L 12/13/20 07:25 MCH 17 pg (28-32) L 12/13/20 07:25 MCHC 30 % (30-34) 12/13/20 07:25 RDW 25.5 % (13.2-15.2) H 12/13/20 07:25 Plt Count 634 K/mm3 (140-440) H 12/13/20 07:25 [place] % (Auto) 6.0 % (0.0-7.3) 12/09/20 04:33 [place] # (Auto) 1.3 K/mm3 (0.0-0.8) H 12/09/20 04:33 Add Manual Diff Complete 12/12/20 05:01 Total Counted 100 12/12/20 05:01 Seg Neutrophils % 84.3 % (40.0-70.0) H 12/09/20 04:33 Seg Neuts % (Manual) 83.0 % (40.0-70.0) H 12/12/20 05:01 Band Neutrophils % 3.0 % 12/09/20 04:33 Lymphocytes % (Manual) 10.0 % (13.4-35.0) L 12/12/20 05:01 Monocytes % (Manual) 7.0 % (0.0-7.3) 12/12/20 05:01 Metamyelocytes % 1.0 % 12/08/20 00:15 Nucleated RBC % 2.0 % (0.0-0.9) H 12/12/20 05:01 Seg Neutrophils # 17.8 K/mm3 (1.8-7.7) H 12/09/20 04:33 Seg Neutrophils # Man 12.7 K/mm3 (1.8-7.7) H 12/12/20 05:01 Band Neutrophils # 0.0 K/mm3 12/12/20 05:01 Lymphocytes # (Manual) 1.5 K/mm3 (1.2-5.4) 12/12/20 05:01 Abs React Lymphs (Man) 0.0 K/mm3 12/12/20 05:01 Monocytes # (Manual) 1.1 K/mm3 (0.0-0.8) H 12/12/20 05:01 Eosinophils # (Manual) 0.0 K/mm3 (0.0-0.4) 12/12/20 05:01 Basophils # (Manual) 0.0 K/mm3 (0.0-0.1) 12/12/20 05:01 Metamyelocytes # 0.0 K/mm3 12/12/20 05:01 Myelocytes # 0.0 K/mm3 12/12/20 05:01 Promyelocytes # 0.0 K/mm3 12/12/20 05:01 Blast Cells # 0.0 K/mm3 12/12/20 05:01 WBC Morphology Not Reportable 12/12/20 05:01 Hypersegmented Neuts Not Reportable 12/12/20 05:01 Hyposegmented Neuts Not Reportable 12/12/20 05:01 Hypogranular Neuts Not Reportable 12/12/20 05:01 Smudge Cells Not Reportable 12/12/20 05:01 Toxic Granulation Not Reportable 12/12/20 05:01 Toxic Vacuolation Not Reportable 12/12/20 05:01 Dohle Bodies Not Reportable 12/12/20 05:01 Pelger-Huet Anomaly Not Reportable 12/12/20 05:01 Lauryn Rods Not Reportable 12/12/20 05:01 Platelet Estimate Consistent w auto 12/12/20 05:01 Clumped Platelets Not Reportable 12/12/20 05:01 Plt Clumps, EDTA Not Reportable 12/12/20 05:01 Large Platelets Not Reportable 12/12/20 05:01 Giant Platelets Not Reportable 12/12/20 05:01 Platelet Satelliting Not Reportable 12/12/20 05:01 Plt Morphology Comment Not Reportable 12/12/20 05:01 RBC Morphology Not Reportable 12/12/20 05:01 Dimorphic RBCs Not Reportable 12/12/20 05:01 Polychromasia Not Reportable 12/12/20 05:01 Hypochromasia 3+ 12/12/20 05:01 Poikilocytosis 1+ 12/12/20 05:01 Anisocytosis 2+ 12/12/20 05:01 Microcytosis 2+ 12/12/20 05:01 Macrocytosis Not Reportable 12/12/20 05:01 Spherocytes Not Reportable 12/12/20 05:01 Pappenheimer Bodies Not Reportable 12/12/20 05:01 Sickle Cells Not Reportable 12/12/20 05:01 Target Cells Not Reportable 12/12/20 05:01 Tear Drop Cells Few 12/12/20 05:01 Ovalocytes Few 12/12/20 05:01 Helmet Cells Not Reportable 12/12/20 05:01 Torres-Aten Bodies Not Reportable 12/12/20 05:01 Line [place] Rings Not Reportable 12/12/20 05:01 [place] Cells Not Reportable 12/12/20 05:01 Bite Cells Not Reportable 12/12/20 05:01 Crenated Cell Not Reportable 12/12/20 05:01 Elliptocytes Few 12/12/20 05:01 Acanthocytes (Spur) Not Reportable 12/12/20 05:01 Rouleaux Not Reportable 12/12/20 05:01 Hemoglobin C Crystals Not Reportable 12/12/20 05:01 Schistocytes Not Reportable 12/12/20 05:01 Malaria parasites Not Reportable 12/12/20 05:01 Brant Bodies Not Reportable 12/12/20 05:01 Hem Pathologist Commnt No 12/12/20 05:01 PT 16.4 Sec. (12.2-14.9) H 12/08/20 00:15 INR 1.27 (0.87-1.13) H 12/08/20 00:15 APTT 29.6 Sec. (24.2-36.6) 12/08/20 00:15 D-Dimer 660.07 ng/mlDDU (0-234) H 12/15/20 04:37 ABG pH 7.449 (7.320-7.450) 12/10/20 08:45 POC ABG pCO2 36.5 mmHg (32.0-48.0) 12/10/20 08:45 POC ABG pO2 64.5 mmHg (83-108) L 12/10/20 08:45 POC ABG HCO3 24.7 12/10/20 08:45 ABG O2 Saturation 91.0 (0-100) 12/10/20 08:45 POC ABG Base Excess 0.8 12/10/20 08:45 ABG Hemoglobin 7.6 (12.0-17.5) L 12/10/20 08:45 ABG Oxyhemoglobin 90.2 (94-98) L 12/10/20 08:45 ABG Methemoglobin 0.1 (0.0-1.5) 12/10/20 08:45 ABG Sodium 139.9 mmol/L (136.0-145.0) 12/10/20 08:45 ABG Potassium 3.3 mmol/L (3.40-4.50) L 12/10/20 08:45 ABG Chloride 108.0 mmol/L (98-107) H 12/10/20 08:45 ABG Glucose 126 mg/dL (65-95) H 12/10/20 08:45 Carboxyhemoglobin 0.8 (0.5-1.5) 12/10/20 08:45 FiO2 % 35.0 12/10/20 08:45 Sodium 141 mmol/L (137-145) 12/13/20 07:25 Potassium 4.5 mmol/L (3.6-5.0) 12/13/20 07:25 Chloride 107.6 mmol/L (98-107) H 12/13/20 07:25 Carbon Dioxide 23 mmol/L (22-30) 12/13/20 07:25 Anion Gap 15 mmol/L 12/13/20 07:25 BUN 25 mg/dL (7-17) H 12/13/20 07:25 Creatinine 0.4 mg/dL (0.6-1.2) L 12/13/20 07:25 Estimated GFR > 60 ml/min 12/13/20 07:25 BUN/Creatinine Ratio 63 % 12/13/20 07:25 Glucose 132 mg/dL (65-100) H 12/13/20 07:25 Lactic Acid 2.50 mmol/L (0.7-2.0) H* 12/11/20 12:38 Calcium 8.4 mg/dL (8.4-10.2) 12/13/20 07:25 Ferritin 147.8 ng/mL (10.0-200.0) 12/15/20 04:37 Total Bilirubin 0.60 mg/dL (0.1-1.2) 12/15/20 04:37 Direct Bilirubin 0.3 mg/dL (0-0.2) H 12/15/20 04:37 Indirect Bilirubin 0.3 mg/dL 12/15/20 04:37 AST 97 units/L (5-40) H 12/15/20 04:37 ALT 281 units/L (7-56) H 12/15/20 04:37 Alkaline Phosphatase 553 units/L (35-129) H 12/15/20 04:37 Lactate Dehydrogenase 511 units/L (91-180) H 12/12/20 05:01 C-Reactive Protein 1.20 mg/dL (0.00-1.30) 12/15/20 04:37 Total Protein 6.2 g/dL (6.3-8.2) L 12/15/20 04:37 Albumin 2.8 g/dL (3.9-5) L 12/15/20 04:37 Albumin/Globulin Ratio 0.8 % 12/15/20 04:37 Procalcitonin 0.83 ng/mL (<0.15) 12/15/20 04:37 Arterial Blood Glucose 126 mg/dL (65-95) H 12/10/20 08:45 Coronavirus (PCR) Positive (Negative) A 12/08/20 10:30 Hepatitis A IgM Ab Non-reactive (NonReactive) 12/13/20 07:25 Hep Bs Antigen Nonreactive (Negative) 12/13/20 07:25 Hep B Core IgM Ab Non-reactive (NonReactive) 12/13/20 07:25 Hepatitis C Antibody Non-reactive (NonReactive) 12/13/20 07:25 Kilpatrick/IV: Voiding Method Indwelling Catheter Active Medications - Current Medications Current Medications: Generic Name Dose Route Start Last Admin Trade Name Freq PRN Reason Stop Dose Admin Acetaminophen 650 mg 12/08/20 05:31 12/21/20 05:41 Acetaminophen 325 Mg Tab PO 650 mg Q4H PRN Administration Pain MILD(1-3)/Fever >100.5/[place] Albuterol 2.5 mg 12/08/20 05:31 Albuterol 2.5 Mg/3 Ml Nebu IH Q4HRT PRN Shortness Of Breath Alprazolam 0.25 mg 12/16/20 13:09 12/19/20 22:43 Alprazolam 0.25 Mg Tab PO 0.25 mg Q6H PRN Administration Anxiety Ascorbic Acid 500 mg 12/09/20 10:00 12/20/20 21:40 Ascorbic Acid 500 Mg Tab PO 500 mg BID DARIAN Administration Cholecalciferol 1,000 unit 12/09/20 10:00 12/20/20 09:37 Cholecalciferol (Vit D3) 1000 Unit (25 Mcg) Tab PO 1,000 unit QDAY DARIAN Administration Enoxaparin Sodium 80 mg 12/19/20 10:00 12/20/20 21:41 Enoxaparin 80 Mg/0.8 Ml Inj SUB-Q 80 mg Q12HR DARIAN Administration Protocol Famotidine 20 mg 12/08/20 10:00 12/20/20 21:40 Famotidine 20 Mg Tab PO 20 mg BID DARIAN Administration Guaifenesin 10 ml 12/14/20 15:00 12/20/20 21:55 Guaifenesin Dm 200/20 Mg Oral Liqd 10 Ml PO 10 ml Q4H PRN Administration Cough Hydromorphone HCl 0.5 mg 12/08/20 05:31 12/19/20 04:16 Hydromorphone 1 Mg/1 Ml Inj IV 0.5 mg Q3H PRN Administration Pain , Severe (7-10) Lisinopril 20 mg 12/15/20 19:00 12/20/20 09:38 Lisinopril 20 Mg Tab PO 20 mg QDAY DARIAN Administration Ondansetron HCl 4 mg 12/08/20 05:31 Ondansetron 4 Mg/2 Ml Inj IV Q8H PRN Nausea And Vomiting Oxycodone/Acetaminophen 1 tab 12/08/20 05:31 12/19/20 22:39 Oxycodone /Acetaminophen 5-325mg Tab PO 1 tab Q6H PRN Administration Pain, Moderate (4-6) Polyethylene Glycol 17 gm 12/11/20 15:53 Polyethylene Glycol 3350 17 Gm Powder PO QDAY PRN Constipation Promethazine HCl 12.5 mg 12/20/20 21:54 Promethazine 12.5 Mg/10 Ml Oral Liqd PO Q6H PRN Nausea And Vomiting Sodium Chloride 10 ml 12/08/20 10:00 12/20/20 21:40 Sodium Chloride 0.9% 10 Ml Flush Syringe IV 10 ml BID DARIAN Administration Sodium Chloride 10 ml 12/08/20 05:31 Sodium Chloride 0.9% 10 Ml Flush Syringe IV PRN PRN LINE FLUSH Zinc Sulfate 220 mg 12/09/20 10:00 12/20/20 09:39 Zinc Sulfate 220 Mg Cap PO 220 mg QDAY DARIAN Administration Nutrition/Malnutrition Assess - Dietary Evaluation Nutrition/Malnutrition Findings: Nutrition Notes Start: 12/18/20 14:21 Freq: Status: Active Protocol: Document 12/18/20 14:21 ARCHIE (Rec: 12/18/20 14:22 [id number]) Nutrition Notes Need for Assessment generated from: LOS Initial or Follow up Brief Note Subjective/Other Information Pt eating 100% of meals. Nutrition Intervention Revisit per MD consult or patient Sign Off request:
--- NOTE | 2020-12-21 13:39 | Progress Note ---
Assessment and Plan 50-year-old female with history of hypertension was brought to the emergency room because of shortness of breath, cough, fever, Covid positive. Patient was diagnosed with COVID-19 1 week ago. Since then patient complained of worsening shortness of breath. Patient states she has not seen a physician for this. Patient states she does not take any medicine. Patient states the fever is fluctuating. Patient states it responds well to Tylenol. Patient states her cough is dry. Patient states she has not been vaccinated for COVID-19. Patient complains of chills. Patient denies nausea vomiting. Patient denies diarrhea. Patient denies abdominal pain. Patient denies chest pain. patient's ox saturation was 82%. Patient was found to have acute respiratory failure. Patient WBC 17.0 and chest x-ray shows pneumonia secondary to Covid. Patient was put on BiPAP Patient awake.cough is better. Still has slight Cough. Patient is on 4 litres O2, and O2 saturation running 100%. Recommend slowly taper FIO2 and Keep O2 saturation above 92% Patient running low grade temp and has mild leukocytosis. Blood pressure 84/64,Pulse 86. Blood pressure running low. Patient asymtomatic at this time. Monitor blood pressure closely. Chest xray done 12/07/20 reported here is patchy diffuse ground glass predominant airspace disease and also mild bibasilar consolidation/atelectasis. No pleural effusion. CT of chest done 12/08/20 reported Negative for PTE. Pulmonary findings as above suggesting an atypical etiology versus interstitial edema. Venous doppler studies of legs 12/08/20 No sonographic evidence for DVT in either lower extremity. Patient presently on S/C Lovenox, Famotidine.Albuterol inhaler. Adding phenergan for cough and nausea. Patient finished course of dexamethasone and REMDESIVIR. - Patient Problems (1) Acute respiratory failure Current Visit: Yes Status: Acute Plan to address problem: O2 4 litres via nasal canula. Finished course of dexamethasone and Remdesivir Continue S/C Lovenox. Continue Famotidine. Albuterol inhaler (2) COVID-19 Current Visit: Yes Status: Acute Plan to address problem: Patient is finished course of Dexamethasone and REMDESIVIR (3) Hypertension Current Visit: Yes Status: Acute Plan to address problem: Management as per primary care. (4) Pneumonia Current Visit: Yes Status: Acute Qualifiers: Pneumonia type: due to unspecified organism Laterality: bilateral Lung location: unspecified part of lung Qualified Code(s): J18.9 - Pneumonia, unspecified organism Plan to address problem: Patient is on short course of ceftriaxone and zithromax. Antibiotics as per infectious diseases. Subjective Date of service: 12/21/20 Principal diagnosis: Ac hypoxemic resp failure; COVID-19 infxn; Pneumonia; Sepsis Interval history: 50-year-old female with history of hypertension was brought to the emergency room because of shortness of breath, cough, fever, Covid positive. Patient was diagnosed with COVID-19 1 week ago. Since then patient complained of worsening shortness of breath. Patient states she has not seen a physician for this. Patient states she does not take any medicine. Patient states the fever is fluctuating. Patient states it responds well to Tylenol. Patient states her cough is dry. Patient states she has not been vaccinated for COVID-19. Patient complains of chills. Patient denies nausea vomiting. Patient denies diarrhea. Patient denies abdominal pain. Patient denies chest pain. patient's ox saturation was 82%. Patient was found to have acute respiratory failure. Patient WBC 17.0 and chest x-ray shows pneumonia secondary to Covid. Patient was put on BiPAP Patient awake.cough is better. Still has slight Cough. Patient is on 4 litres O2, and O2 saturation running 100%. Recommend slowly taper FIO2 and Keep O2 saturation above 92% Patient running low grade temp and has mild leukocytosis. Blood pressure 84/64,Pulse 86. Chest xray done 12/07/20 reported here is patchy diffuse ground glass predominant airspace disease and also mild bibasilar consolidation/atelectasis. No pleural effusion. CT of chest done 12/08/20 reported Negative for PTE. Pulmonary findings as above suggesting an atypical etiology versus interstitial edema. Venous doppler studies of legs 12/08/20 No sonographic evidence for DVT in either lower extremity. Patient presently on S/C Lovenox, Famotidine.Albuterol inhaler. Adding phenerg an for cough and nausea. Patient finished course of dexamethasone and REMDESIVIR. Objective Vital Signs - 12hr 12/21/20 12/21/20 12/21/20 02:27 03:53 10:50 Temperature 99.0 F Pulse Rate 80 Respiratory 18 Rate Blood Pressure 117/74 O2 Sat by Pulse 96 100 99 Oximetry 12/21/20 11:21 Temperature Pulse Rate Respiratory Rate Blood Pressure O2 Sat by Pulse 100 Oximetry Constitutional: no acute distress, alert Eyes: non-icteric ENT: oropharynx moist Neck: supple, no lymphadenopathy, no JVD Effort: mildly labored Ascultation: Bilateral: rhonchi Percussion: Bilateral: not dull Cardiovascular: regular rate and rhythm Gastrointestinal: normoactive bowel sounds, soft, non-tender, non-distended Integumentary: normal Extremities: no cyanosis, no edema, pulses normal, no ischemia or petechiae Neurologic: normal mental status, non-focal exam, pupils equal and round, CN II- XII normal, motor strength normal and Psychiatric: mood appropriate, anxious CBC and BMP: 12/13/20 07:25 12/13/20 07:25 ABG, PT/INR, D-dimer: ABG ABG pH 7.449 (7.320-7.450) 12/10/20 08:45 POC ABG pCO2 36.5 mmHg (32.0-48.0) 12/10/20 08:45 POC ABG pO2 64.5 mmHg (83-108) L 12/10/20 08:45 POC ABG HCO3 24.7 12/10/20 08:45 ABG O2 Saturation 91.0 (0-100) 12/10/20 08:45 PT/INR, D-dimer PT 16.4 Sec. (12.2-14.9) H 12/08/20 00:15 INR 1.27 (0.87-1.13) H 12/08/20 00:15 D-Dimer 660.07 ng/mlDDU (0-234) H 12/15/20 04:37 Abnormal lab findings: Abnormal Labs 12/08/20 12/08/20 12/08/20 00:15 00:15 00:15 WBC 17.0 H RBC 5.40 H Hgb 8.3 L Hct 29.7 L MCV 55 L MCH 16 L MCHC 28 L RDW 25.0 H Plt Count 464 H [place] # (Auto) Seg Neutrophils % Seg Neuts % (Manual) 92.0 H Lymphocytes % (Manual) 1.0 L Nucleated RBC % Seg Neutrophils # Seg Neutrophils # Man 15.6 H Lymphocytes # (Manual) 0.2 L Monocytes # (Manual) PT 16.4 H INR 1.27 H D-Dimer 1129.87 H POC ABG pO2 ABG Hemoglobin ABG Oxyhemoglobin ABG Potassium ABG Chloride ABG Glucose Potassium 3.1 L Chloride BUN Creatinine Glucose 128 H Lactic Acid Calcium 8.3 L Ferritin Total Bilirubin 1.90 H Direct Bilirubin AST 309 H ALT 1384 H Alkaline Phosphatase 440 H Lactate Dehydrogenase C-Reactive Protein Total Protein Albumin 3.2 L Arterial Blood Glucose Coronavirus (PCR) 12/08/20 12/08/20 12/08/20 00:15 00:15 00:15 WBC RBC Hgb Hct MCV MCH MCHC RDW Plt Count [place] # (Auto) Seg Neutrophils % Seg Neuts % (Manual) Lymphocytes % (Manual) Nucleated RBC % Seg Neutrophils # Seg Neutrophils # Man Lymphocytes # (Manual) Monocytes # (Manual) PT INR D-Dimer POC ABG pO2 ABG Hemoglobin ABG Oxyhemoglobin ABG Potassium ABG Chloride ABG Glucose Potassium Chloride BUN Creatinine Glucose Lactic Acid 2.30 H* Calcium Ferritin 289.8 H Total Bilirubin Direct Bilirubin AST ALT Alkaline Phosphatase Lactate Dehydrogenase 608 H C-Reactive Protein 20.70 H Total Protein Albumin Arterial Blood Glucose Coronavirus (PCR) 12/08/20 12/08/20 12/08/20 02:16 09:49 10:30 WBC RBC Hgb Hct MCV MCH MCHC RDW Plt Count [place] # (Auto) Seg Neutrophils % Seg Neuts % (Manual) Lymphocytes % (Manual) Nucleated RBC % Seg Neutrophils # Seg Neutrophils # Man Lymphocytes # (Manual) Monocytes # (Manual) PT INR D-Dimer POC ABG pO2 ABG Hemoglobin ABG Oxyhemoglobin ABG Potassium ABG Chloride ABG Glucose Potassium Chloride BUN Creatinine Glucose Lactic Acid 2.50 H* 2.40 H* Calcium Ferritin Total Bilirubin Direct Bilirubin AST ALT Alkaline Phosphatase Lactate Dehydrogenase C-Reactive Protein Total Protein Albumin Arterial Blood Glucose Coronavirus (PCR) Positive A 12/09/20 12/09/20 12/09/20 04:33 04:33 09:13 WBC 21.0 H RBC 5.12 H Hgb 8.2 L Hct 29.1 L MCV 57 L MCH 16 L MCHC 28 L RDW 24.6 H Plt Count 509 H [place] # (Auto) 1.3 H Seg Neutrophils % 84.3 H Seg Neuts % (Manual) 93.0 H Lymphocytes % (Manual) 2.0 L Nucleated RBC % 2.0 H Seg Neutrophils # 17.8 H Seg Neutrophils # Man 19.5 H Lymphocytes # (Manual) 0.4 L Monocytes # (Manual) PT INR D-Dimer POC ABG pO2 ABG Hemoglobin ABG Oxyhemoglobin ABG Potassium ABG Chloride ABG Glucose Potassium 3.5 L Chloride BUN 30 H 29 H Creatinine Glucose 190 H 129 H Lactic Acid Calcium Ferritin Total Bilirubin Direct Bilirubin AST 276 H ALT 867 H Alkaline Phosphatase 685 H Lactate Dehydrogenase C-Reactive Protein Total Protein Albumin 3.1 L Arterial Blood Glucose Coronavirus (PCR) 12/09/20 12/10/20 12/10/20 19:16 05:04 05:04 WBC RBC Hgb Hct MCV MCH MCHC RDW Plt Count [place] # (Auto) Seg Neutrophils % Seg Neuts % (Manual) Lymphocytes % (Manual) Nucleated RBC % Seg Neutrophils # Seg Neutrophils # Man Lymphocytes # (Manual) Monocytes # (Manual) PT INR D-Dimer POC ABG pO2 ABG Hemoglobin ABG Oxyhemoglobin ABG Potassium ABG Chloride ABG Glucose Potassium 3.4 L Chloride BUN 25 H Creatinine Glucose 184 H Lactic Acid 2.80 H* 3.30 H* Calcium 7.9 L Ferritin Total Bilirubin Direct Bilirubin AST 277 H ALT 722 H Alkaline Phosphatase 773 H Lactate Dehydrogenase C-Reactive Protein Total Protein Albumin 2.9 L Arterial Blood Glucose Coronavirus (PCR) 12/10/20 12/10/20 12/10/20 08:11 08:45 11:15 WBC RBC Hgb Hct MCV MCH MCHC RDW Plt Count [place] # (Auto) Seg Neutrophils % Seg Neuts % (Manual) Lymphocytes % (Manual) Nucleated RBC % Seg Neutrophils # Seg Neutrophils # Man Lymphocytes # (Manual) Monocytes # (Manual) PT INR D-Dimer POC ABG pO2 64.5 L ABG Hemoglobin 7.6 L ABG Oxyhemoglobin 90.2 L ABG Potassium 3.3 L ABG Chloride 108.0 H ABG Glucose 126 H Potassium Chloride BUN Creatinine Glucose Lactic Acid 2.10 H* 2.40 H* Calcium Ferritin Total Bilirubin Direct Bilirubin AST ALT Alkaline Phosphatase Lactate Dehydrogenase C-Reactive Protein Total Protein Albumin Arterial Blood Glucose 126 H Coronavirus (PCR) 12/10/20 12/10/20 12/11/20 13:36 19:13 00:49 WBC RBC Hgb Hct MCV MCH MCHC RDW Plt Count [place] # (Auto) Seg Neutrophils % Seg Neuts % (Manual) Lymphocytes % (Manual) Nucleated RBC % Seg Neutrophils # Seg Neutrophils # Man Lymphocytes # (Manual) Monocytes # (Manual) PT INR D-Dimer POC ABG pO2 ABG Hemoglobin ABG Oxyhemoglobin ABG Potassium ABG Chloride ABG Glucose Potassium 3.4 L Chloride BUN Creatinine Glucose Lactic Acid 3.40 H* 2.30 H* Calcium Ferritin Total Bilirubin Direct Bilirubin AST ALT Alkaline Phosphatase Lactate Dehydrogenase C-Reactive Protein Total Protein Albumin Arterial Blood Glucose Coronavirus (PCR) 12/11/20 12/11/20 12/11/20 05:34 05:34 10:06 WBC RBC Hgb Hct MCV MCH MCHC RDW Plt Count [place] # (Auto) Seg Neutrophils % Seg Neuts % (Manual) Lymphocytes % (Manual) Nucleated RBC % Seg Neutrophils # Seg Neutrophils # Man Lymphocytes # (Manual) Monocytes # (Manual) PT INR D-Dimer POC ABG pO2 ABG Hemoglobin ABG Oxyhemoglobin ABG Potassium ABG Chloride ABG Glucose Potassium Chloride 108.1 H BUN Creatinine 0.4 L Glucose 160 H Lactic Acid 2.30 H* 2.90 H* Calcium 8.3 L Ferritin Total Bilirubin Direct Bilirubin AST 249 H ALT 589 H Alkaline Phosphatase 701 H Lactate Dehydrogenase C-Reactive Protein Total Protein 5.9 L Albumin 3.0 L Arterial Blood Glucose Coronavirus (PCR) 12/11/20 12/11/20 12/11/20 12:38 12:38 12:38 WBC RBC Hgb Hct MCV MCH MCHC RDW Plt Count [place] # (Auto) Seg Neutrophils % Seg Neuts % (Manual) Lymphocytes % (Manual) Nucleated RBC % Seg Neutrophils # Seg Neutrophils # Man Lymphocytes # (Manual) Monocytes # (Manual) PT INR D-Dimer 725.41 H POC ABG pO2 ABG Hemoglobin ABG Oxyhemoglobin ABG Potassium ABG Chloride ABG Glucose Potassium Chloride BUN Creatinine Glucose Lactic Acid 2.50 H* Calcium Ferritin Total Bilirubin Direct Bilirubin AST ALT Alkaline Phosphatase Lactate Dehydrogenase 447 H C-Reactive Protein 2.90 H Total Protein Albumin Arterial Blood Glucose Coronavirus (PCR) 12/12/20 12/12/20 12/12/20 05:01 05:01 05:01 WBC 15.3 H RBC Hgb 8.1 L Hct 28.4 L MCV 57 L MCH 16 L MCHC 29 L RDW 25.0 H Plt Count 809 H [place] # (Auto) Seg Neutrophils % Seg Neuts % (Manual) 83.0 H Lymphocytes % (Manual) 10.0 L Nucleated RBC % 2.0 H Seg Neutrophils # Seg Neutrophils # Man 12.7 H Lymphocytes # (Manual) Monocytes # (Manual) 1.1 H PT INR D-Dimer 752.84 H POC ABG pO2 ABG Hemoglobin ABG Oxyhemoglobin ABG Potassium ABG Chloride ABG Glucose Potassium Chloride BUN 20 H Creatinine 0.4 L Glucose 120 H Lactic Acid Calcium Ferritin Total Bilirubin Direct Bilirubin AST 121 H ALT 469 H Alkaline Phosphatase 633 H Lactate Dehydrogenase 511 H C-Reactive Protein 3.50 H Total Protein Albumin 3.1 L Arterial Blood Glucose Coronavirus (PCR) 12/13/20 12/13/20 12/14/20 07:25 07:25 13:54 WBC 11.2 H RBC Hgb 7.2 L Hct 24.3 L MCV 57 L MCH 17 L MCHC RDW 25.5 H Plt Count 634 H [place] # (Auto) Seg Neutrophils % Seg Neuts % (Manual) Lymphocytes % (Manual) Nucleated RBC % Seg Neutrophils # Seg Neutrophils # Man Lymphocytes # (Manual) Monocytes # (Manual) PT INR D-Dimer POC ABG pO2 ABG Hemoglobin ABG Oxyhemoglobin ABG Potassium ABG Chloride ABG Glucose Potassium Chloride 107.6 H BUN 25 H Creatinine 0.4 L Glucose 132 H Lactic Acid Calcium Ferritin Total Bilirubin Direct Bilirubin 0.3 H 0.4 H AST 72 H 115 H ALT 295 H 318 H Alkaline Phosphatase 466 H 617 H Lactate Dehydrogenase C-Reactive Protein Total Protein 6.1 L Albumin 2.7 L 3.0 L Arterial Blood Glucose Coronavirus (PCR) 12/14/20 12/14/20 12/15/20 13:54 13:54 04:37 WBC RBC Hgb Hct MCV MCH MCHC RDW Plt Count [place] # (Auto) Seg Neutrophils % Seg Neuts % (Manual) Lymphocytes % (Manual) Nucleated RBC % Seg Neutrophils # Seg Neutrophils # Man Lymphocytes # (Manual) Monocytes # (Manual) PT INR D-Dimer 806.70 H POC ABG pO2 ABG Hemoglobin ABG Oxyhemoglobin ABG Potassium ABG Chloride ABG Glucose Potassium Chloride BUN Creatinine Glucose Lactic Acid Calcium Ferritin Total Bilirubin Direct Bilirubin 0.3 H AST 97 H ALT 281 H Alkaline Phosphatase 553 H Lactate Dehydrogenase C-Reactive Protein 1.70 H Total Protein 6.2 L Albumin 2.8 L Arterial Blood Glucose Coronavirus (PCR) 12/15/20 04:37 WBC RBC Hgb Hct MCV MCH MCHC RDW Plt Count [place] # (Auto) Seg Neutrophils % Seg Neuts % (Manual) Lymphocytes % (Manual) Nucleated RBC % Seg Neutrophils # Seg Neutrophils # Man Lymphocytes # (Manual) Monocytes # (Manual) PT INR D-Dimer 660.07 H POC ABG pO2 ABG Hemoglobin ABG Oxyhemoglobin ABG Potassium ABG Chloride ABG Glucose Potassium Chloride BUN Creatinine Glucose Lactic Acid Calcium Ferritin Total Bilirubin Direct Bilirubin AST ALT Alkaline Phosphatase Lactate Dehydrogenase C-Reactive Protein Total Protein Albumin Arterial Blood Glucose Coronavirus (PCR) Allied health notes reviewed: nursing
[2020-12-21] MEDS: guaiFENesin DM 200/20 MG ORAL LIQD 10 ML PO PRN (14:19)
[2020-12-21] MEDS: ZINC SULFATE 220 MG CAP PO SCH (14:21)
[2020-12-21] MEDS: oxyCODONE /ACETAMINOPHEN 5-325MG TAB PO PRN (14:39)
[2020-12-21] MEDS: ALPRAZolam 0.25 MG TAB PO PRN ×2 (14:39→23:02)
--- NOTE | 2020-12-22 09:46 | XRay Report ---
XR chest 1V ap INDICATION / CLINICAL INFORMATION: Follow up on pneumonia.. COMPARISON: [id number] FINDINGS: SUPPORT DEVICES: None. HEART /PULMONARY VASCULATURE: No significant abnormality. LUNGS / PLEURA: Diffuse pulmonary airspace opacities appear unchanged from prior study, given diminis hed lung volumes. No pneumothorax. ADDITIONAL FINDINGS: No significant additional findings. IMPRESSION: Stable appearance of the chest. Moderate pulmonary airspace disease persists. Signer Name: Hermes Magaña MD Signed: 12/22/2020 9:42 AM Workstation Name: [id number]
[2020-12-22] MEDS: guaiFENesin DM 200/20 MG ORAL LIQD 10 ML PO PRN ×2 (10:24→23:41)
[2020-12-22] MEDS: ASCORBIC ACID 500 MG TAB PO SCH ×2 (11:41→21:21)
[2020-12-22] MEDS: ENOXAPARIN 80 MG/0.8 ML INJ SUB-Q SCH ×2 (11:41→21:20)
[2020-12-22] MEDS: LISINOPRIL 20 MG TAB PO SCH (11:41)
[2020-12-22] MEDS: CHOLECALCIFEROL (VIT D3) 1000 UNIT (25 mcg) TAB PO SCH (11:41)
[2020-12-22] MEDS: FAMOTIDINE 20 MG TAB PO SCH ×2 (11:42→21:20)
[2020-12-22] MEDS: ZINC SULFATE 220 MG CAP PO SCH (11:42)
--- NOTE | 2020-12-22 12:23 | Progress Note ---
Assessment and Plan Assessment and plan: 50-year-old female with history of hypertension was brought to the emergency room because of shortness of breath, cough, fever, Covid positive. Patient was diagnosed with COVID-19 1 week ago. Since then patient complained of worsening shortness of breath. Patient states she has not seen a physician for this. Patient states she does not take any medicine. Patient states the fever is fluctuating. Patient states it responds well to Tylenol. Patient states her cough is dry. Patient states she has not been vaccinated for COVID-19. Patient complains of chills. Patient denies nausea vomiting. Patient denies diarrhea. Patient denies abdominal pain. Patient denies chest pain. Patient's ox saturation was 82%. Patient was found to have acute respiratory failure. Patient WBC 17.0 and chest x-ray shows pneumonia secondary to Covid. Patient was put on BiPAP (1) Acute hypoxic respiratory failure 2/2 Covid 19 PNA pulmonary following and note reviewed Patient is on 35% Fio2 with O2 sat 93-94% (2) COVID-19 Current Visit: Yes Status: Acute Plan to address problem: ID note reviewed inflammatory markers reviewed cont. Dexamethasone x 10 days Cleared for starting remdesivir as LFTs < 10 times normal monitor markers 3. Severe sepsis procalcitonin results reviewed ID note reviewed cont. ceftriaxone and azithromycin (4) LeuKocytosis: 2/2 sepsis monitor CBC (5) Hypertension Current Visit: Yes Status: Acute Plan to address problem: Hydralazine 10 mg IV every 6 hours as needed she has no hx of HTN 6) Transaminitis: results reviewed cont. to monitor (7) anemia (8) Anxiety (9) DVT prophylaxis Current Visit: Yes Status: Acute Plan to address problem: will stop heparin and start on lovenox. Pepcid 20 mg p.o. twice daily for GI prophylaxis. Patient is a full code. 12/09/2020 -Patient was on BiPAP with FiO2 of 100%, patient desaturated when she was off BiPAP momentarily. I put her on D5 half-normal saline for maintenance. Titrate oxygen as tolerated. -Pulmonary consulted, ID consulted. -Patient has elevated ALT and AST and is not a candidate for remdesivir. -Patient is on IV antibiotics and procalcitonin level is elevated, ID recommends to continue with IV antibiotics. ID said patient is not a candidate for Actemra because of the infection with elevated procalcitonin level. 12/10; Patient is on BiPAP, on Decadron. Remdesivir discontinued due to elevated liver enzymes. Patient not a candidate for Actemra because patient has elevated procalcitonin level. Continue with IV antibiotics. Prognosis is guarded. 12/11 Patient is A&O,A&O, c/o weakness and feels tired. C/O shortness of breath. requesting stool sofner. She denies f/c/CP/N/abd. pain 12/12: Continue supportive care. Wean oxygen as tolerated. Will obtain pulmonary consult will evaluate for possible Lasix therapy. Noted anemia with hemoglobin of 8.1 will monitor this closely. D-dimer is elevated so is AST and ALT and alk phos. This may preclude use of medications such as remdesivir which has been discontinued in relation to this. Patient remains critically ill. 12/13: Patient showing some improve, still with BiPAP requirements, continue supportive care, continued sterods, Remdesivr per ID, monitor renal function closely and LFT. wean oxygen as tolerated. Prognosis guarded 12/14: Patient seen and examined, she is showing good improvement, down to 10 liters except that she gets anxious. I spoke extensively with the family and updated them on her clinical condition 12/15: Patient continues to show good improvement, weaned down to 5L of oxygen with saturation of 99%. Will transfer to Medical floor and continue current management. 12/16: Patient was doing well this am, on 5 liters and sating 95%, later desated and was placed back on BIPAP. reassurance and counselling provided 12/17: Patient remains on oxygen high flow. I believe that she will be able to be weaned if she if we can control her anxiety. Discussed with nursing staff at bedside also discussed with the patient. Will begin LTAC referral in a.m. 12/18/20 patient is seen and examined. Less shortness of breath. No chest pain. Anxious. Is on high flow oxygen at 40 L with 75% FiO2. We cut down the FiO2 75% from 80%. Wean oxygen. Continue current management. LTAC referral 12/19: Ms. Jarrett continues to show some improvement, She is currently on 70% FIO2 and satting 99%. Discussed with respiratory therapist will try to wean down further. Will transfer to [facility]. Continue to encourage slow deep breaths. Continue to use anxiolytics. Awaiting LTAC approval. Continue to monitor hemoglobin. 12/20: Patient seen and examined, patient needs to continue weaning of oxygen, satting 98% on 70%FIO2. Her anxiety level is improving, [facility] 12/21: Patient showing good disposition. Currently FiO2 is down to 50% with saturation of 96% we will continue current management. Continue to encourage prone position. 12/22: Patient seen and examined this morning actually doing well. She is down to 3 L with a sat of 94%. She unfortunately has bouts of anxiety relative to the loss of her parents due to COVID-19 who unfortunately have not been buried and this makes her oxygen demand go up but while she comes down she is able to do well at 3 L. I think psychologically she will benefit from being discharged in 24 to 48 hours if her oxygen continues to improve she likely will need home oxygen as her history and as a result a walk test prior to discharge is appropriate. I also discussed with her brother who is also requested that tomorrow we will give an update to the sister about her condition prior to discharge. I have placed a walk test for tomorrow and have discussed with nursing staff also History Interval history: Patient seen and examined showing some improvement, remarkable disposition today and improved affect. She was weaned down to 3 L of oxygen. She did have a bout of anxiety and required to go back up to 8 L but has since been gradually weaned down to 3 L. Satting 94%. She does report anxiety secondary to recent loss of her parents who have not been buried and unfortunately from COVID-19. Hospitalist Physical - Physical exam Narrative exam: VITAL SIGNS: Reviewed. GENERAL: The patient appears normally developed, still with shortness of breath but better affect, improving, vital signs as documented. HEAD: No signs of head trauma. EYES: Pupils are equal. Extraocular motions intact. EARS: Hearing grossly intact. MOUTH: Oropharynx is normal. NECK: No adenopathy, no JVD. CHEST: Chest with diminished breath sounds bilaterally. No wheezes, rales, or rhonchi. CARDIAC: Regular rate and rhythm. S1 and S2, without murmurs, gallops, or rubs. VASCULAR: No Edema. Peripheral pulses normal and equal in all extremities. ABDOMEN: Soft, non tender and non distended. No rebound or guarding, and no masses palpated. Bowel Sounds normal. MUSCULOSKELETAL: Good range of motion of all major joints. Extremities without clubbing, cyanosis or edema. NEUROLOGIC EXAM: Alert and oriented x 3, No focal sensory or strength deficits. Speech normal. Follows commands. PSYCHIATRIC: Mood normal not at the moment SKIN: detail exam as documented in skin assessment - Constitutional Vitals: Temp Pulse Resp BP Pulse Ox 98.0 F 95 H 20 134/90 95 12/22/20 05:55 12/22/20 05:55 12/22/20 05:55 12/22/20 05:55 12/22/20 08:35 General appearance: Present: no acute distress Results - Labs CBC & Chem 7: 12/13/20 07:25 12/13/20 07:25 Labs: Laboratory Last Values WBC 11.2 K/mm3 (4.5-11.0) H 12/13/20 07:25 RBC 4.26 M/mm3 (3.65-5.03) 12/13/20 07:25 Hgb 7.2 gm/dl (10.1-14.3) L 12/13/20 07:25 Hct 24.3 % (30.3-42.9) L 12/13/20 07:25 MCV 57 fl (79-97) L 12/13/20 07:25 MCH 17 pg (28-32) L 12/13/20 07:25 MCHC 30 % (30-34) 12/13/20 07:25 RDW 25.5 % (13.2-15.2) H 12/13/20 07:25 Plt Count 634 K/mm3 (140-440) H 12/13/20 07:25 Crook % (Auto) 6.0 % (0.0-7.3) 12/09/20 04:33 Crook # (Auto) 1.3 K/mm3 (0.0-0.8) H 12/09/20 04:33 Add Manual Diff Complete 12/12/20 05:01 Total Counted 100 12/12/20 05:01 Seg Neutrophils % 84.3 % (40.0-70.0) H 12/09/20 04:33 Seg Neuts % (Manual) 83.0 % (40.0-70.0) H 12/12/20 05:01 Band Neutrophils % 3.0 % 12/09/20 04:33 Lymphocytes % (Manual) 10.0 % (13.4-35.0) L 12/12/20 05:01 Monocytes % (Manual) 7.0 % (0.0-7.3) 12/12/20 05:01 Metamyelocytes % 1.0 % 12/08/20 00:15 Nucleated RBC % 2.0 % (0.0-0.9) H 12/12/20 05:01 Seg Neutrophils # 17.8 K/mm3 (1.8-7.7) H 12/09/20 04:33 Seg Neutrophils # Man 12.7 K/mm3 (1.8-7.7) H 12/12/20 05:01 Band Neutrophils # 0.0 K/mm3 12/12/20 05:01 Lymphocytes # (Manual) 1.5 K/mm3 (1.2-5.4) 12/12/20 05:01 Abs React Lymphs (Man) 0.0 K/mm3 12/12/20 05:01 Monocytes # (Manual) 1.1 K/mm3 (0.0-0.8) H 12/12/20 05:01 Eosinophils # (Manual) 0.0 K/mm3 (0.0-0.4) 12/12/20 05:01 Basophils # (Manual) 0.0 K/mm3 (0.0-0.1) 12/12/20 05:01 Metamyelocytes # 0.0 K/mm3 12/12/20 05:01 Myelocytes # 0.0 K/mm3 12/12/20 05:01 Promyelocytes # 0.0 K/mm3 12/12/20 05:01 Blast Cells # 0.0 K/mm3 12/12/20 05:01 WBC Morphology Not Reportable 12/12/20 05:01 Hypersegmented Neuts Not Reportable 12/12/20 05:01 Hyposegmented Neuts Not Reportable 12/12/20 05:01 Hypogranular Neuts Not Reportable 12/12/20 05:01 Smudge Cells Not Reportable 12/12/20 05:01 Toxic Granulation Not Reportable 12/12/20 05:01 Toxic Vacuolation Not Reportable 12/12/20 05:01 Dohle Bodies Not Reportable 12/12/20 05:01 Pelger-Huet Anomaly Not Reportable 12/12/20 05:01 Lauryn Rods Not Reportable 12/12/20 05:01 Platelet Estimate Consistent w auto 12/12/20 05:01 Clumped Platelets Not Reportable 12/12/20 05:01 Plt Clumps, EDTA Not Reportable 12/12/20 05:01 Large Platelets Not Reportable 12/12/20 05:01 Giant Platelets Not Reportable 12/12/20 05:01 Platelet Satelliting Not Reportable 12/12/20 05:01 Plt Morphology Comment Not Reportable 12/12/20 05:01 RBC Morphology Not Reportable 12/12/20 05:01 Dimorphic RBCs Not Reportable 12/12/20 05:01 Polychromasia Not Reportable 12/12/20 05:01 Hypochromasia 3+ 12/12/20 05:01 Poikilocytosis 1+ 12/12/20 05:01 Anisocytosis 2+ 12/12/20 05:01 Microcytosis 2+ 12/12/20 05:01 Macrocytosis Not Reportable 12/12/20 05:01 Spherocytes Not Reportable 12/12/20 05:01 Pappenheimer Bodies Not Reportable 12/12/20 05:01 Sickle Cells Not Reportable 12/12/20 05:01 Target Cells Not Reportable 12/12/20 05:01 Tear Drop Cells Few 12/12/20 05:01 Ovalocytes Few 12/12/20 05:01 Helmet Cells Not Reportable 12/12/20 05:01 [place] Bodies Not Reportable 12/12/20 05:01 [place] Rings Not Reportable 12/12/20 05:01 Jens Cells Not Reportable 12/12/20 05:01 Bite Cells Not Reportable 12/12/20 05:01 Crenated Cell Not Reportable 12/12/20 05:01 Elliptocytes Few 12/12/20 05:01 Acanthocytes (Spur) Not Reportable 12/12/20 05:01 Rouleaux Not Reportable 12/12/20 05:01 Hemoglobin C Crystals Not Reportable 12/12/20 05:01 Schistocytes Not Reportable 12/12/20 05:01 Malaria parasites Not Reportable 12/12/20 05:01 Brant Bodies Not Reportable 12/12/20 05:01 Hem Pathologist Commnt No 12/12/20 05:01 PT 16.4 Sec. (12.2-14.9) H 12/08/20 00:15 INR 1.27 (0.87-1.13) H 12/08/20 00:15 APTT 29.6 Sec. (24.2-36.6) 12/08/20 00:15 D-Dimer 660.07 ng/mlDDU (0-234) H 12/15/20 04:37 ABG pH 7.449 (7.320-7.450) 12/10/20 08:45 POC ABG pCO2 36.5 mmHg (32.0-48.0) 12/10/20 08:45 POC ABG pO2 64.5 mmHg (83-108) L 12/10/20 08:45 POC ABG HCO3 24.7 12/10/20 08:45 ABG O2 Saturation 91.0 (0-100) 12/10/20 08:45 POC ABG Base Excess 0.8 12/10/20 08:45 ABG Hemoglobin 7.6 (12.0-17.5) L 12/10/20 08:45 ABG Oxyhemoglobin 90.2 (94-98) L 12/10/20 08:45 ABG Methemoglobin 0.1 (0.0-1.5) 12/10/20 08:45 ABG Sodium 139.9 mmol/L (136.0-145.0) 12/10/20 08:45 ABG Potassium 3.3 mmol/L (3.40-4.50) L 12/10/20 08:45 ABG Chloride 108.0 mmol/L (98-107) H 12/10/20 08:45 ABG Glucose 126 mg/dL (65-95) H 12/10/20 08:45 Carboxyhemoglobin 0.8 (0.5-1.5) 12/10/20 08:45 FiO2 % 35.0 12/10/20 08:45 Sodium 141 mmol/L (137-145) 12/13/20 07:25 Potassium 4.5 mmol/L (3.6-5.0) 12/13/20 07:25 Chloride 107.6 mmol/L (98-107) H 12/13/20 07:25 Carbon Dioxide 23 mmol/L (22-30) 12/13/20 07:25 Anion Gap 15 mmol/L 12/13/20 07:25 BUN 25 mg/dL (7-17) H 12/13/20 07:25 Creatinine 0.4 mg/dL (0.6-1.2) L 12/13/20 07:25 Estimated GFR > 60 ml/min 12/13/20 07:25 BUN/Creatinine Ratio 63 % 12/13/20 07:25 Glucose 132 mg/dL (65-100) H 12/13/20 07:25 Lactic Acid 2.50 mmol/L (0.7-2.0) H* 12/11/20 12:38 Calcium 8.4 mg/dL (8.4-10.2) 12/13/20 07:25 Ferritin 147.8 ng/mL (10.0-200.0) 12/15/20 04:37 Total Bilirubin 0.60 mg/dL (0.1-1.2) 12/15/20 04:37 Direct Bilirubin 0.3 mg/dL (0-0.2) H 12/15/20 04:37 Indirect Bilirubin 0.3 mg/dL 12/15/20 04:37 AST 97 units/L (5-40) H 12/15/20 04:37 ALT 281 units/L (7-56) H 12/15/20 04:37 Alkaline Phosphatase 553 units/L (35-129) H 12/15/20 04:37 Lactate Dehydrogenase 511 units/L (91-180) H 12/12/20 05:01 C-Reactive Protein 1.20 mg/dL (0.00-1.30) 12/15/20 04:37 Total Protein 6.2 g/dL (6.3-8.2) L 12/15/20 04:37 Albumin 2.8 g/dL (3.9-5) L 12/15/20 04:37 Albumin/Globulin Ratio 0.8 % 12/15/20 04:37 Procalcitonin 0.83 ng/mL (<0.15) 12/15/20 04:37 Arterial Blood Glucose 126 mg/dL (65-95) H 12/10/20 08:45 Coronavirus (PCR) Positive (Negative) A 12/08/20 10:30 Hepatitis A IgM Ab Non-reactive (NonReactive) 12/13/20 07:25 Hep Bs Antigen Nonreactive (Negative) 12/13/20 07:25 Hep B Core IgM Ab Non-reactive (NonReactive) 12/13/20 07:25 Hepatitis C Antibody Non-reactive (NonReactive) 12/13/20 07:25 Kilpatrick/IV: Voiding Method Indwelling Catheter Active Medications - Current Medications Current Medications: Generic Name Dose Route Start Last Admin Trade Name Freq PRN Reason Stop Dose Admin Acetaminophen 650 mg 12/08/20 05:31 12/21/20 21:35 Acetaminophen 325 Mg Tab PO 650 mg Q4H PRN Administration Pain MILD(1-3)/Fever >100.5/[place] Albuterol 2.5 mg 12/08/20 05:31 Albuterol 2.5 Mg/3 Ml Nebu IH Q4HRT PRN Shortness Of Breath Alprazolam 0.25 mg 12/16/20 13:09 12/21/20 23:02 Alprazolam 0.25 Mg Tab PO 0.25 mg Q6H PRN Administration Anxiety Ascorbic Acid 500 mg 12/09/20 10:00 12/22/20 11:41 Ascorbic Acid 500 Mg Tab PO 500 mg BID DARIAN Administration Cholecalciferol 1,000 unit 12/09/20 10:00 12/22/20 11:41 Cholecalciferol (Vit D3) 1000 Unit (25 Mcg) Tab PO 1,000 unit QDAY DARIAN Administration Enoxaparin Sodium 80 mg 12/19/20 10:00 12/22/20 11:41 Enoxaparin 80 Mg/0.8 Ml Inj SUB-Q 80 mg Q12HR DARIAN Administration Protocol Famotidine 20 mg 12/08/20 10:00 12/22/20 11:42 Famotidine 20 Mg Tab PO 20 mg BID DARIAN Administration Guaifenesin 10 ml 12/14/20 15:00 12/22/20 10:24 Guaifenesin Dm 200/20 Mg Oral Liqd 10 Ml PO 10 ml Q4H PRN Administration Cough Hydromorphone HCl 0.5 mg 12/08/20 05:31 12/19/20 04:16 Hydromorphone 1 Mg/1 Ml Inj IV 0.5 mg Q3H PRN Administration Pain , Severe (7-10) Lisinopril 20 mg 12/15/20 19:00 12/22/20 11:41 Lisinopril 20 Mg Tab PO 20 mg QDAY DARIAN Administration Ondansetron HCl 4 mg 12/08/20 05:31 Ondansetron 4 Mg/2 Ml Inj IV Q8H PRN Nausea And Vomiting Oxycodone/Acetaminophen 1 tab 12/08/20 05:31 12/21/20 14:39 Oxycodone /Acetaminophen 5-325mg Tab PO 1 tab Q6H PRN Administration Pain, Moderate (4-6) Polyethylene Glycol 17 gm 12/11/20 15:53 Polyethylene Glycol 3350 17 Gm Powder PO QDAY PRN Constipation Promethazine HCl 12.5 mg 12/20/20 21:54 Promethazine 12.5 Mg/10 Ml Oral Liqd PO Q6H PRN Nausea And Vomiting Sodium Chloride 10 ml 12/08/20 10:00 12/22/20 11:42 Sodium Chloride 0.9% 10 Ml Flush Syringe IV 10 ml BID DARIAN Administration Sodium Chloride 10 ml 12/08/20 05:31 Sodium Chloride 0.9% 10 Ml Flush Syringe IV PRN PRN LINE FLUSH Zinc Sulfate 220 mg 12/09/20 10:00 12/22/20 11:42 Zinc Sulfate 220 Mg Cap PO 220 mg QDAY DARIAN Administration Nutrition/Malnutrition Assess - Dietary Evaluation Nutrition/Malnutrition Findings: Nutrition Notes Start: 12/18/20 14:21 Freq: Status: Active Protocol: Document 12/18/20 14:21 ARCHIE (Rec: 12/18/20 14:22 ARCHIE [id number]) Nutrition Notes Need for Assessment generated from: LOS Initial or Follow up Brief Note Subjective/Other Information Pt eating 100% of meals. Nutrition Intervention Revisit per MD consult or patient Sign Off request:
--- NOTE | 2020-12-22 13:31 | Progress Note ---
Assessment and Plan Acute hypoxemic respiratory failure COVID-19 infection Bilateral pneumonia Elevated serum transaminases Sepsis Anemia that is microcytic Thrombocytosis Lactic acidosis - continue awake proning - continue to wean supplemental oxygen for target O2 sat's > 92% acutely - discharge planning ok respiratory-phillips - no new issues otherwise, watch closely but continue care as below; - continue aspiration precautions - bronchodilators with pulmonary hygiene per RT - avoid nephrotoxins, renally dose all medications - avoid benzodiazepine's, reduce the possibility of delirium - complete antiinfective's per ID rec's - prn analgesia per pain score - Maintenance of sleep-wake cycle, avoid delirium - G.I. & VTE prophylaxis - PT/OT/ROM exercises - continue mobility protocols for pressure ulcer prophylaxis - Monitor hemodynamics closely - continue other care per attending / other consultants - discharge planning ongoing concurrently COVID SPECIFIC INTERVENTIONS - Remdesivir as per ID/Pulmonary developed protocols (not a candidate re: LFT's) - continue systemic steroids for severe COVID-19 infection - follow repeat COVID tests results - zinc and vitamin C supplementation - Monitor inflammatory markers per facility protocol - ferritin, Ddimer, CRP - therapeutic anticoagulation per system Protocol based on d-dimer and clinical considerations (VTE prophylaxis) - Continue contact and airborne isolation .... Re-evaluate in am & prn Subjective Date of service: 12/22/20 Principal diagnosis: Ac hypoxemic resp failure; COVID-19 infxn; Pneumonia; Sepsis Interval history: Patient is seen today for: Acute hypoxemic respiratory failure; COVID-19 infection; Bilateral pneumonia; Elevated serum transaminases; Sepsis; Lactic acidosis Seen and examined at bedside; 24hour events reviewed; nursing and respiratory care staff consulted; no adverse overnight events reported to me; resting in bed; looks and feels much better; FiO2 down to 36%; No N/V/F/C Objective Vital Signs - 12hr 12/22/20 12/22/20 12/22/20 05:55 08:00 08:35 Temperature 98.0 F Pulse Rate 95 H Respiratory 20 Rate Blood Pressure 134/90 O2 Sat by Pulse 97 95 95 Oximetry Constitutional: no acute distress, other (middle aged female without increased respiratory effort at rest) Eyes: non-icteric ENT: oropharynx moist Neck: supple, no lymphadenopathy, no JVD Effort: normal Ascultation: Bilateral: rhonchi Percussion: Bilateral: not dull Cardiovascular: regular rate and rhythm Gastrointestinal: normoactive bowel sounds, soft, non-tender, non-distended Integumentary: normal Extremities: no cyanosis, no edema, pulses normal, no ischemia or petechiae Neurologic: normal mental status, non-focal exam, pupils equal and round, CN II- XII normal, motor strength normal and Psychiatric: mood appropriate, affect normal CBC and BMP: 12/13/20 07:25 12/13/20 07:25 ABG, PT/INR, D-dimer: ABG ABG pH 7.449 (7.320-7.450) 12/10/20 08:45 POC ABG pCO2 36.5 mmHg (32.0-48.0) 12/10/20 08:45 POC ABG pO2 64.5 mmHg (83-108) L 12/10/20 08:45 POC ABG HCO3 24.7 12/10/20 08:45 ABG O2 Saturation 91.0 (0-100) 12/10/20 08:45 PT/INR, D-dimer PT 16.4 Sec. (12.2-14.9) H 12/08/20 00:15 INR 1.27 (0.87-1.13) H 12/08/20 00:15 D-Dimer 660.07 ng/mlDDU (0-234) H 12/15/20 04:37 Abnormal lab findings: Abnormal Labs 12/08/20 12/08/20 12/08/20 00:15 00:15 00:15 WBC 17.0 H RBC 5.40 H Hgb 8.3 L Hct 29.7 L MCV 55 L MCH 16 L MCHC 28 L RDW 25.0 H Plt Count 464 H [place] # (Auto) Seg Neutrophils % Seg Neuts % (Manual) 92.0 H Lymphocytes % (Manual) 1.0 L Nucleated RBC % Seg Neutrophils # Seg Neutrophils # Man 15.6 H Lymphocytes # (Manual) 0.2 L Monocytes # (Manual) PT 16.4 H INR 1.27 H D-Dimer 1129.87 H POC ABG pO2 ABG Hemoglobin ABG Oxyhemoglobin ABG Potassium ABG Chloride ABG Glucose Potassium 3.1 L Chloride BUN Creatinine Glucose 128 H Lactic Acid Calcium 8.3 L Ferritin Total Bilirubin 1.90 H Direct Bilirubin AST 309 H ALT 1384 H Alkaline Phosphatase 440 H Lactate Dehydrogenase C-Reactive Protein Total Protein Albumin 3.2 L Arterial Blood Glucose Coronavirus (PCR) 12/08/20 12/08/20 12/08/20 00:15 00:15 00:15 WBC RBC Hgb Hct MCV MCH MCHC RDW Plt Count [place] # (Auto) Seg Neutrophils % Seg Neuts % (Manual) Lymphocytes % (Manual) Nucleated RBC % Seg Neutrophils # Seg Neutrophils # Man Lymphocytes # (Manual) Monocytes # (Manual) PT INR D-Dimer POC ABG pO2 ABG Hemoglobin ABG Oxyhemoglobin ABG Potassium ABG Chloride ABG Glucose Potassium Chloride BUN Creatinine Glucose Lactic Acid 2.30 H* Calcium Ferritin 289.8 H Total Bilirubin Direct Bilirubin AST ALT Alkaline Phosphatase Lactate Dehydrogenase 608 H C-Reactive Protein 20.70 H Total Protein Albumin Arterial Blood Glucose Coronavirus (PCR) 12/08/20 12/08/20 12/08/20 02:16 09:49 10:30 WBC RBC Hgb Hct MCV MCH MCHC RDW Plt Count [place] # (Auto) Seg Neutrophils % Seg Neuts % (Manual) Lymphocytes % (Manual) Nucleated RBC % Seg Neutrophils # Seg Neutrophils # Man Lymphocytes # (Manual) Monocytes # (Manual) PT INR D-Dimer POC ABG pO2 ABG Hemoglobin ABG Oxyhemoglobin ABG Potassium ABG Chloride ABG Glucose Potassium Chloride BUN Creatinine Glucose Lactic Acid 2.50 H* 2.40 H* Calcium Ferritin Total Bilirubin Direct Bilirubin AST ALT Alkaline Phosphatase Lactate Dehydrogenase C-Reactive Protein Total Protein Albumin Arterial Blood Glucose Coronavirus (PCR) Positive A 12/09/20 12/09/20 12/09/20 04:33 04:33 09:13 WBC 21.0 H RBC 5.12 H Hgb 8.2 L Hct 29.1 L MCV 57 L MCH 16 L MCHC 28 L RDW 24.6 H Plt Count 509 H [place] # (Auto) 1.3 H Seg Neutrophils % 84.3 H Seg Neuts % (Manual) 93.0 H Lymphocytes % (Manual) 2.0 L Nucleated RBC % 2.0 H Seg Neutrophils # 17.8 H Seg Neutrophils # Man 19.5 H Lymphocytes # (Manual) 0.4 L Monocytes # (Manual) PT INR D-Dimer POC ABG pO2 ABG Hemoglobin ABG Oxyhemoglobin ABG Potassium ABG Chloride ABG Glucose Potassium 3.5 L Chloride BUN 30 H 29 H Creatinine Glucose 190 H 129 H Lactic Acid Calcium Ferritin Total Bilirubin Direct Bilirubin AST 276 H ALT 867 H Alkaline Phosphatase 685 H Lactate Dehydrogenase C-Reactive Protein Total Protein Albumin 3.1 L Arterial Blood Glucose Coronavirus (PCR) 12/09/20 12/10/20 12/10/20 19:16 05:04 05:04 WBC RBC Hgb Hct MCV MCH MCHC RDW Plt Count [place] # (Auto) Seg Neutrophils % Seg Neuts % (Manual) Lymphocytes % (Manual) Nucleated RBC % Seg Neutrophils # Seg Neutrophils # Man Lymphocytes # (Manual) Monocytes # (Manual) PT INR D-Dimer POC ABG pO2 ABG Hemoglobin ABG Oxyhemoglobin ABG Potassium ABG Chloride ABG Glucose Potassium 3.4 L Chloride BUN 25 H Creatinine Glucose 184 H Lactic Acid 2.80 H* 3.30 H* Calcium 7.9 L Ferritin Total Bilirubin Direct Bilirubin AST 277 H ALT 722 H Alkaline Phosphatase 773 H Lactate Dehydrogenase C-Reactive Protein Total Protein Albumin 2.9 L Arterial Blood Glucose Coronavirus (PCR) 12/10/20 12/10/20 12/10/20 08:11 08:45 11:15 WBC RBC Hgb Hct MCV MCH MCHC RDW Plt Count [place] # (Auto) Seg Neutrophils % Seg Neuts % (Manual) Lymphocytes % (Manual) Nucleated RBC % Seg Neutrophils # Seg Neutrophils # Man Lymphocytes # (Manual) Monocytes # (Manual) PT INR D-Dimer POC ABG pO2 64.5 L ABG Hemoglobin 7.6 L ABG Oxyhemoglobin 90.2 L ABG Potassium 3.3 L ABG Chloride 108.0 H ABG Glucose 126 H Potassium Chloride BUN Creatinine Glucose Lactic Acid 2.10 H* 2.40 H* Calcium Ferritin Total Bilirubin Direct Bilirubin AST ALT Alkaline Phosphatase Lactate Dehydrogenase C-Reactive Protein Total Protein Albumin Arterial Blood Glucose 126 H Coronavirus (PCR) 12/10/20 12/10/20 12/11/20 13:36 19:13 00:49 WBC RBC Hgb Hct MCV MCH MCHC RDW Plt Count [place] # (Auto) Seg Neutrophils % Seg Neuts % (Manual) Lymphocytes % (Manual) Nucleated RBC % Seg Neutrophils # Seg Neutrophils # Man Lymphocytes # (Manual) Monocytes # (Manual) PT INR D-Dimer POC ABG pO2 ABG Hemoglobin ABG Oxyhemoglobin ABG Potassium ABG Chloride ABG Glucose Potassium 3.4 L Chloride BUN Creatinine Glucose Lactic Acid 3.40 H* 2.30 H* Calcium Ferritin Total Bilirubin Direct Bilirubin AST ALT Alkaline Phosphatase Lactate Dehydrogenase C-Reactive Protein Total Protein Albumin Arterial Blood Glucose Coronavirus (PCR) 12/11/20 12/11/20 12/11/20 05:34 05:34 10:06 WBC RBC Hgb Hct MCV MCH MCHC RDW Plt Count [place] # (Auto) Seg Neutrophils % Seg Neuts % (Manual) Lymphocytes % (Manual) Nucleated RBC % Seg Neutrophils # Seg Neutrophils # Man Lymphocytes # (Manual) Monocytes # (Manual) PT INR D-Dimer POC ABG pO2 ABG Hemoglobin ABG Oxyhemoglobin ABG Potassium ABG Chloride ABG Glucose Potassium Chloride 108.1 H BUN Creatinine 0.4 L Glucose 160 H Lactic Acid 2.30 H* 2.90 H* Calcium 8.3 L Ferritin Total Bilirubin Direct Bilirubin AST 249 H ALT 589 H Alkaline Phosphatase 701 H Lactate Dehydrogenase C-Reactive Protein Total Protein 5.9 L Albumin 3.0 L Arterial Blood Glucose Coronavirus (PCR) 12/11/20 12/11/20 12/11/20 12:38 12:38 12:38 WBC RBC Hgb Hct MCV MCH MCHC RDW Plt Count [place] # (Auto) Seg Neutrophils % Seg Neuts % (Manual) Lymphocytes % (Manual) Nucleated RBC % Seg Neutrophils # Seg Neutrophils # Man Lymphocytes # (Manual) Monocytes # (Manual) PT INR D-Dimer 725.41 H POC ABG pO2 ABG Hemoglobin ABG Oxyhemoglobin ABG Potassium ABG Chloride ABG Glucose Potassium Chloride BUN Creatinine Glucose Lactic Acid 2.50 H* Calcium Ferritin Total Bilirubin Direct Bilirubin AST ALT Alkaline Phosphatase Lactate Dehydrogenase 447 H C-Reactive Protein 2.90 H Total Protein Albumin Arterial Blood Glucose Coronavirus (PCR) 12/12/20 12/12/20 12/12/20 05:01 05:01 05:01 WBC 15.3 H RBC Hgb 8.1 L Hct 28.4 L MCV 57 L MCH 16 L MCHC 29 L RDW 25.0 H Plt Count 809 H [place] # (Auto) Seg Neutrophils % Seg Neuts % (Manual) 83.0 H Lymphocytes % (Manual) 10.0 L Nucleated RBC % 2.0 H Seg Neutrophils # Seg Neutrophils # Man 12.7 H Lymphocytes # (Manual) Monocytes # (Manual) 1.1 H PT INR D-Dimer 752.84 H POC ABG pO2 ABG Hemoglobin ABG Oxyhemoglobin ABG Potassium ABG Chloride ABG Glucose Potassium Chloride BUN 20 H Creatinine 0.4 L Glucose 120 H Lactic Acid Calcium Ferritin Total Bilirubin Direct Bilirubin AST 121 H ALT 469 H Alkaline Phosphatase 633 H Lactate Dehydrogenase 511 H C-Reactive Protein 3.50 H Total Protein Albumin 3.1 L Arterial Blood Glucose Coronavirus (PCR) 12/13/20 12/13/20 12/14/20 07:25 07:25 13:54 WBC 11.2 H RBC Hgb 7.2 L Hct 24.3 L MCV 57 L MCH 17 L MCHC RDW 25.5 H Plt Count 634 H [place] # (Auto) Seg Neutrophils % Seg Neuts % (Manual) Lymphocytes % (Manual) Nucleated RBC % Seg Neutrophils # Seg Neutrophils # Man Lymphocytes # (Manual) Monocytes # (Manual) PT INR D-Dimer POC ABG pO2 ABG Hemoglobin ABG Oxyhemoglobin ABG Potassium ABG Chloride ABG Glucose Potassium Chloride 107.6 H BUN 25 H Creatinine 0.4 L Glucose 132 H Lactic Acid Calcium Ferritin Total Bilirubin Direct Bilirubin 0.3 H 0.4 H AST 72 H 115 H ALT 295 H 318 H Alkaline Phosphatase 466 H 617 H Lactate Dehydrogenase C-Reactive Protein Total Protein 6.1 L Albumin 2.7 L 3.0 L Arterial Blood Glucose Coronavirus (PCR) 12/14/20 12/14/20 12/15/20 13:54 13:54 04:37 WBC RBC Hgb Hct MCV MCH MCHC RDW Plt Count [place] # (Auto) Seg Neutrophils % Seg Neuts % (Manual) Lymphocytes % (Manual) Nucleated RBC % Seg Neutrophils # Seg Neutrophils # Man Lymphocytes # (Manual) Monocytes # (Manual) PT INR D-Dimer 806.70 H POC ABG pO2 ABG Hemoglobin ABG Oxyhemoglobin ABG Potassium ABG Chloride ABG Glucose Potassium Chloride BUN Creatinine Glucose Lactic Acid Calcium Ferritin Total Bilirubin Direct Bilirubin 0.3 H AST 97 H ALT 281 H Alkaline Phosphatase 553 H Lactate Dehydrogenase C-Reactive Protein 1.70 H Total Protein 6.2 L Albumin 2.8 L Arterial Blood Glucose Coronavirus (PCR) 12/15/20 04:37 WBC RBC Hgb Hct MCV MCH MCHC RDW Plt Count [place] # (Auto) Seg Neutrophils % Seg Neuts % (Manual) Lymphocytes % (Manual) Nucleated RBC % Seg Neutrophils # Seg Neutrophils # Man Lymphocytes # (Manual) Monocytes # (Manual) PT INR D-Dimer 660.07 H POC ABG pO2 ABG Hemoglobin ABG Oxyhemoglobin ABG Potassium ABG Chloride ABG Glucose Potassium Chloride BUN Creatinine Glucose Lactic Acid Calcium Ferritin Total Bilirubin Direct Bilirubin AST ALT Alkaline Phosphatase Lactate Dehydrogenase C-Reactive Protein Total Protein Albumin Arterial Blood Glucose Coronavirus (PCR) Allied health notes reviewed: nursing
[2020-12-22] MEDS: ACETAMINOPHEN 325 MG TAB PO PRN (15:10)
[2020-12-22] MEDS: oxyCODONE /ACETAMINOPHEN 5-325MG TAB PO PRN (23:41)
--- NOTE | 2020-12-23 07:29 | Progress Note ---
Assessment and Plan Assessment and plan: 50-year-old female with history of hypertension was brought to the emergency room because of shortness of breath, cough, fever, Covid positive. Patient was diagnosed with COVID-19 1 week ago. Since then patient complained of worsening shortness of breath. Patient states she has not seen a physician for this. Patient states she does not take any medicine. Patient states the fever is fluctuating. Patient states it responds well to Tylenol. Patient states her cough is dry. Patient states she has not been vaccinated for COVID-19. Patient complains of chills. Patient denies nausea vomiting. Patient denies diarrhea. Patient denies abdominal pain. Patient denies chest pain. Patient's ox saturation was 82%. Patient was found to have acute respiratory failure. Patient WBC 17.0 and chest x-ray shows pneumonia secondary to Covid. Patient was put on BiPAP (1) Acute hypoxic respiratory failure 2/2 Covid 19 PNA pulmonary following and note reviewed Patient is on 35% Fio2 with O2 sat 93-94% (2) COVID-19 Current Visit: Yes Status: Acute Plan to address problem: ID note reviewed inflammatory markers reviewed cont. Dexamethasone x 10 days Cleared for starting remdesivir as LFTs < 10 times normal monitor markers 3. Severe sepsis procalcitonin results reviewed ID note reviewed cont. ceftriaxone and azithromycin (4) LeuKocytosis: 2/2 sepsis monitor CBC (5) Hypertension Current Visit: Yes Status: Acute Plan to address problem: Hydralazine 10 mg IV every 6 hours as needed she has no hx of HTN 6) Transaminitis: results reviewed cont. to monitor (7) anemia (8) Anxiety (9) DVT prophylaxis Current Visit: Yes Status: Acute Plan to address problem: will stop heparin and start on lovenox. Pepcid 20 mg p.o. twice daily for GI prophylaxis. Patient is a full code. 12/09/2020 -Patient was on BiPAP with FiO2 of 100%, patient desaturated when she was off BiPAP momentarily. I put her on D5 half-normal saline for maintenance. Titrate oxygen as tolerated. -Pulmonary consulted, ID consulted. -Patient has elevated ALT and AST and is not a candidate for remdesivir. -Patient is on IV antibiotics and procalcitonin level is elevated, ID recommends to continue with IV antibiotics. ID said patient is not a candidate for Actemra because of the infection with elevated procalcitonin level. 12/10; Patient is on BiPAP, on Decadron. Remdesivir discontinued due to elevated liver enzymes. Patient not a candidate for Actemra because patient has elevated procalcitonin level. Continue with IV antibiotics. Prognosis is guarded. 12/11 Patient is A&O,A&O, c/o weakness and feels tired. C/O shortness of breath. requesting stool sofner. She denies f/c/CP/N/abd. pain 12/12: Continue supportive care. Wean oxygen as tolerated. Will obtain pulmonary consult will evaluate for possible Lasix therapy. Noted anemia with hemoglobin of 8.1 will monitor this closely. D-dimer is elevated so is AST and ALT and alk phos. This may preclude use of medications such as remdesivir which has been discontinued in relation to this. Patient remains critically ill. 12/13: Patient showing some improve, still with BiPAP requirements, continue supportive care, continued sterods, Remdesivr per ID, monitor renal function closely and LFT. wean oxygen as tolerated. Prognosis guarded 12/14: Patient seen and examined, she is showing good improvement, down to 10 liters except that she gets anxious. I spoke extensively with the family and updated them on her clinical condition 12/15: Patient continues to show good improvement, weaned down to 5L of oxygen with saturation of 99%. Will transfer to Medical floor and continue current management. 12/16: Patient was doing well this am, on 5 liters and sating 95%, later desated and was placed back on BIPAP. reassurance and counselling provided 12/17: Patient remains on oxygen high flow. I believe that she will be able to be weaned if she if we can control her anxiety. Discussed with nursing staff at bedside also discussed with the patient. Will begin LTAC referral in a.m. 12/18/20 patient is seen and examined. Less shortness of breath. No chest pain. Anxious. Is on high flow oxygen at 40 L with 75% FiO2. We cut down the FiO2 75% from 80%. Wean oxygen. Continue current management. LTAC referral 12/19: Ms. Jarrett continues to show some improvement, She is currently on 70% FIO2 and satting 99%. Discussed with respiratory therapist will try to wean down further. Will transfer to [facility]. Continue to encourage slow deep breaths. Continue to use anxiolytics. Awaiting LTAC approval. Continue to monitor hemoglobin. 12/20: Patient seen and examined, patient needs to continue weaning of oxygen, satting 98% on 70%FIO2. Her anxiety level is improving, can transfer to [facility] 12/21: Patient showing good disposition. Currently FiO2 is down to 50% with saturation of 96% we will continue current management. Continue to encourage prone position. 12/22: Patient seen and examined this morning actually doing well. She is down to 3 L with a sat of 94%. She unfortunately has bouts of anxiety relative to the loss of her parents due to COVID-19 who unfortunately have not been buried and this makes her oxygen demand go up but while she comes down she is able to do well at 3 L. I think psychologically she will benefit from being discharged in 24 to 48 hours if her oxygen continues to improve she likely will need home oxygen as her history and as a result a walk test prior to discharge is appropriate. I also discussed with her brother who is also requested that tomorrow we will give an update to the sister about her condition prior to discharge. I have placed a walk test for tomorrow and have discussed with nursing staff also 12/23; patient was on 4L of oxygen saturating 95%. Patient has bouts of anxiety and on 0.25 mg of Xanax as needed. We will do home O2 evaluation and possible discharge today. Patient need PT OT evaluation. Will discuss with case management about her concerns stairs in her house. History Interval history: Patient was seen and evaluated this morning Patient was on 4 L of oxygen Patient was concerned that she has a lot of stairs in her house Patient was not evaluated by PT OT Hospitalist Physical - Physical exam Narrative exam: Patient was on 4 L of oxygen The patient appeared well nourished and normally developed. Vital signs as documented. Head exam is unremarkable. No scleral icterus . Neck is without jugular venous distension, thyromegaly, or carotid bruits. Lungs decreased air entry. No rales or rhonchi. Cardiac exam reveals regular rate and Rhythm. Abdominal exam reveals normal bowel sounds, nontender, no organomegaly. Extremities are nonedematous and both femoral and pedal pulses are normal. 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 No focal weakness. - Constitutional Vitals: Temp Pulse Resp BP Pulse Ox 99.2 F 95 H 20 123/78 99 12/22/20 21:25 12/23/20 04:00 12/23/20 00:41 12/22/20 21:25 12/22/20 22:00 General appearance: Present: no acute distress Results - Labs CBC & Chem 7: 12/13/20 07:25 12/13/20 07:25 Labs: Laboratory Last Values WBC 11.2 K/mm3 (4.5-11.0) H 12/13/20 07:25 RBC 4.26 M/mm3 (3.65-5.03) 12/13/20 07:25 Hgb 7.2 gm/dl (10.1-14.3) L 12/13/20 07:25 Hct 24.3 % (30.3-42.9) L 12/13/20 07:25 MCV 57 fl (79-97) L 12/13/20 07:25 MCH 17 pg (28-32) L 12/13/20 07:25 MCHC 30 % (30-34) 12/13/20 07:25 RDW 25.5 % (13.2-15.2) H 12/13/20 07:25 Plt Count 634 K/mm3 (140-440) H 12/13/20 07:25 [place] % (Auto) 6.0 % (0.0-7.3) 12/09/20 04:33 [place] # (Auto) 1.3 K/mm3 (0.0-0.8) H 12/09/20 04:33 Add Manual Diff Complete 12/12/20 05:01 Total Counted 100 12/12/20 05:01 Seg Neutrophils % 84.3 % (40.0-70.0) H 12/09/20 04:33 Seg Neuts % (Manual) 83.0 % (40.0-70.0) H 12/12/20 05:01 Band Neutrophils % 3.0 % 12/09/20 04:33 Lymphocytes % (Manual) 10.0 % (13.4-35.0) L 12/12/20 05:01 Monocytes % (Manual) 7.0 % (0.0-7.3) 12/12/20 05:01 Metamyelocytes % 1.0 % 12/08/20 00:15 Nucleated RBC % 2.0 % (0.0-0.9) H 12/12/20 05:01 Seg Neutrophils # 17.8 K/mm3 (1.8-7.7) H 12/09/20 04:33 Seg Neutrophils # Man 12.7 K/mm3 (1.8-7.7) H 12/12/20 05:01 Band Neutrophils # 0.0 K/mm3 12/12/20 05:01 Lymphocytes # (Manual) 1.5 K/mm3 (1.2-5.4) 12/12/20 05:01 Abs React Lymphs (Man) 0.0 K/mm3 12/12/20 05:01 Monocytes # (Manual) 1.1 K/mm3 (0.0-0.8) H 12/12/20 05:01 Eosinophils # (Manual) 0.0 K/mm3 (0.0-0.4) 12/12/20 05:01 Basophils # (Manual) 0.0 K/mm3 (0.0-0.1) 12/12/20 05:01 Metamyelocytes # 0.0 K/mm3 12/12/20 05:01 Myelocytes # 0.0 K/mm3 12/12/20 05:01 Promyelocytes # 0.0 K/mm3 12/12/20 05:01 Blast Cells # 0.0 K/mm3 12/12/20 05:01 WBC Morphology Not Reportable 12/12/20 05:01 Hypersegmented Neuts Not Reportable 12/12/20 05:01 Hyposegmented Neuts Not Reportable 12/12/20 05:01 Hypogranular Neuts Not Reportable 12/12/20 05:01 Smudge Cells Not Reportable 12/12/20 05:01 Toxic Granulation Not Reportable 12/12/20 05:01 Toxic Vacuolation Not Reportable 12/12/20 05:01 Dohle Bodies Not Reportable 12/12/20 05:01 Pelger-Huet Anomaly Not Reportable 12/12/20 05:01 Lauryn Rods Not Reportable 12/12/20 05:01 Platelet Estimate Consistent w auto 12/12/20 05:01 Clumped Platelets Not Reportable 12/12/20 05:01 Plt Clumps, EDTA Not Reportable 12/12/20 05:01 Large Platelets Not Reportable 12/12/20 05:01 Giant Platelets Not Reportable 12/12/20 05:01 Platelet Satelliting Not Reportable 12/12/20 05:01 Plt Morphology Comment Not Reportable 12/12/20 05:01 RBC Morphology Not Reportable 12/12/20 05:01 Dimorphic RBCs Not Reportable 12/12/20 05:01 Polychromasia Not Reportable 12/12/20 05:01 Hypochromasia 3+ 12/12/20 05:01 Poikilocytosis 1+ 12/12/20 05:01 Anisocytosis 2+ 12/12/20 05:01 Microcytosis 2+ 12/12/20 05:01 Macrocytosis Not Reportable 12/12/20 05:01 Spherocytes Not Reportable 12/12/20 05:01 Pappenheimer Bodies Not Reportable 12/12/20 05:01 Sickle Cells Not Reportable 12/12/20 05:01 Target Cells Not Reportable 12/12/20 05:01 Tear Drop Cells Few 12/12/20 05:01 Ovalocytes Few 12/12/20 05:01 Helmet Cells Not Reportable 12/12/20 05:01 Torres-Emhouse Bodies Not Reportable 12/12/20 05:01 [place] Rings Not Reportable 12/12/20 05:01 [place] Cells Not Reportable 12/12/20 05:01 Bite Cells Not Reportable 12/12/20 05:01 Crenated Cell Not Reportable 12/12/20 05:01 Elliptocytes Few 12/12/20 05:01 Acanthocytes (Spur) Not Reportable 12/12/20 05:01 Rouleaux Not Reportable 12/12/20 05:01 Hemoglobin C Crystals Not Reportable 12/12/20 05:01 Schistocytes Not Reportable 12/12/20 05:01 Malaria parasites Not Reportable 12/12/20 05:01 Brant Bodies Not Reportable 12/12/20 05:01 Hem Pathologist Commnt No 12/12/20 05:01 PT 16.4 Sec. (12.2-14.9) H 12/08/20 00:15 INR 1.27 (0.87-1.13) H 12/08/20 00:15 APTT 29.6 Sec. (24.2-36.6) 12/08/20 00:15 D-Dimer 660.07 ng/mlDDU (0-234) H 12/15/20 04:37 ABG pH 7.449 (7.320-7.450) 12/10/20 08:45 POC ABG pCO2 36.5 mmHg (32.0-48.0) 12/10/20 08:45 POC ABG pO2 64.5 mmHg (83-108) L 12/10/20 08:45 POC ABG HCO3 24.7 12/10/20 08:45 ABG O2 Saturation 91.0 (0-100) 12/10/20 08:45 POC ABG Base Excess 0.8 12/10/20 08:45 ABG Hemoglobin 7.6 (12.0-17.5) L 12/10/20 08:45 ABG Oxyhemoglobin 90.2 (94-98) L 12/10/20 08:45 ABG Methemoglobin 0.1 (0.0-1.5) 12/10/20 08:45 ABG Sodium 139.9 mmol/L (136.0-145.0) 12/10/20 08:45 ABG Potassium 3.3 mmol/L (3.40-4.50) L 12/10/20 08:45 ABG Chloride 108.0 mmol/L (98-107) H 12/10/20 08:45 ABG Glucose 126 mg/dL (65-95) H 12/10/20 08:45 Carboxyhemoglobin 0.8 (0.5-1.5) 12/10/20 08:45 FiO2 % 35.0 12/10/20 08:45 Sodium 141 mmol/L (137-145) 12/13/20 07:25 Potassium 4.5 mmol/L (3.6-5.0) 12/13/20 07:25 Chloride 107.6 mmol/L (98-107) H 12/13/20 07:25 Carbon Dioxide 23 mmol/L (22-30) 12/13/20 07:25 Anion Gap 15 mmol/L 12/13/20 07:25 BUN 25 mg/dL (7-17) H 12/13/20 07:25 Creatinine 0.4 mg/dL (0.6-1.2) L 12/13/20 07:25 Estimated GFR > 60 ml/min 08/17/21 07:25 BUN/Creatinine Ratio 63 % 12/13/20 07:25 Glucose 132 mg/dL (65-100) H 12/13/20 07:25 Lactic Acid 2.50 mmol/L (0.7-2.0) H* 12/11/20 12:38 Calcium 8.4 mg/dL (8.4-10.2) 12/13/20 07:25 Ferritin 147.8 ng/mL (10.0-200.0) 12/15/20 04:37 Total Bilirubin 0.60 mg/dL (0.1-1.2) 12/15/20 04:37 Direct Bilirubin 0.3 mg/dL (0-0.2) H 12/15/20 04:37 Indirect Bilirubin 0.3 mg/dL 12/15/20 04:37 AST 97 units/L (5-40) H 12/15/20 04:37 ALT 281 units/L (7-56) H 12/15/20 04:37 Alkaline Phosphatase 553 units/L (35-129) H 12/15/20 04:37 Lactate Dehydrogenase 511 units/L (91-180) H 12/12/20 05:01 C-Reactive Protein 1.20 mg/dL (0.00-1.30) 12/15/20 04:37 Total Protein 6.2 g/dL (6.3-8.2) L 12/15/20 04:37 Albumin 2.8 g/dL (3.9-5) L 12/15/20 04:37 Albumin/Globulin Ratio 0.8 % 12/15/20 04:37 Procalcitonin 0.83 ng/mL (<0.15) 12/15/20 04:37 Arterial Blood Glucose 126 mg/dL (65-95) H 12/10/20 08:45 Coronavirus (PCR) Positive (Negative) A 12/08/20 10:30 Hepatitis A IgM Ab Non-reactive (NonReactive) 12/13/20 07:25 Hep Bs Antigen Nonreactive (Negative) 12/13/20 07:25 Hep B Core IgM Ab Non-reactive (NonReactive) 12/13/20 07:25 Hepatitis C Antibody Non-reactive (NonReactive) 12/13/20 07:25 [place]/IV: Voiding Method Indwelling Catheter Active Medications - Current Medications Current Medications: Generic Name Dose Route Start Last Admin Trade Name Freq PRN Reason Stop Dose Admin Acetaminophen 650 mg 12/08/20 05:31 12/22/20 15:10 Acetaminophen 325 Mg Tab PO 650 mg Q4H PRN Administration Pain MILD(1-3)/Fever >100.5/[place] Albuterol 2.5 mg 12/08/20 05:31 Albuterol 2.5 Mg/3 Ml Nebu IH Q4HRT PRN Shortness Of Breath Alprazolam 0.25 mg 12/16/20 13:09 12/21/20 23:02 Alprazolam 0.25 Mg Tab PO 0.25 mg Q6H PRN Administration Anxiety Ascorbic Acid 500 mg 12/09/20 10:00 12/22/20 21:21 Ascorbic Acid 500 Mg Tab PO 500 mg BID DARIAN Administration Cholecalciferol 1,000 unit 12/09/20 10:00 12/22/20 11:41 Cholecalciferol (Vit D3) 1000 Unit (25 Mcg) Tab PO 1,000 unit QDAY DARIAN Administration Enoxaparin Sodium 80 mg 12/19/20 10:00 12/22/20 21:20 Enoxaparin 80 Mg/0.8 Ml Inj SUB-Q 80 mg Q12HR DARIAN Administration Protocol Famotidine 20 mg 12/08/20 10:00 12/22/20 21:20 Famotidine 20 Mg Tab PO 20 mg BID DARIAN Administration Guaifenesin 10 ml 12/14/20 15:00 12/22/20 23:41 Guaifenesin Dm 200/20 Mg Oral Liqd 10 Ml PO 10 ml Q4H PRN Administration Cough Hydromorphone HCl 0.5 mg 12/08/20 05:31 12/19/20 04:16 Hydromorphone 1 Mg/1 Ml Inj IV 0.5 mg Q3H PRN Administration Pain , Severe (7-10) Lisinopril 20 mg 12/15/20 19:00 12/22/20 11:41 Lisinopril 20 Mg Tab PO 20 mg QDAY DARIAN Administration Ondansetron HCl 4 mg 12/08/20 05:31 Ondansetron 4 Mg/2 Ml Inj IV Q8H PRN Nausea And Vomiting Oxycodone/Acetaminophen 1 tab 12/08/20 05:31 12/22/20 23:41 Oxycodone /Acetaminophen 5-325mg Tab PO 1 tab Q6H PRN Administration Pain, Moderate (4-6) Polyethylene Glycol 17 gm 12/11/20 15:53 Polyethylene Glycol 3350 17 Gm Powder PO QDAY PRN Constipation Promethazine HCl 12.5 mg 12/20/20 21:54 Promethazine 12.5 Mg/10 Ml Oral Liqd PO Q6H PRN Nausea And Vomiting Sodium Chloride 10 ml 12/08/20 10:00 12/22/20 21:21 Sodium Chloride 0.9% 10 Ml Flush Syringe IV 10 ml BID DARIAN Administration Sodium Chloride 10 ml 12/08/20 05:31 Sodium Chloride 0.9% 10 Ml Flush Syringe IV PRN PRN LINE FLUSH Zinc Sulfate 220 mg 12/09/20 10:00 12/22/20 11:42 Zinc Sulfate 220 Mg Cap PO 220 mg QDAY DARIAN Administration Nutrition/Malnutrition Assess - Dietary Evaluation Nutrition/Malnutrition Findings: Nutrition Notes Start: 12/18/20 14:21 Freq: Status: Active Protocol: Document 12/18/20 14:21 ARCHIE (Rec: 12/18/20 14:22 ARCHIE [id number]) Nutrition Notes Need for Assessment generated from: LOS Initial or Follow up Brief Note Subjective/Other Information Pt eating 100% of meals. Nutrition Intervention Revisit per MD consult or patient Sign Off request:
[2020-12-23] MEDS: ENOXAPARIN 80 MG/0.8 ML INJ SUB-Q SCH ×2 (10:50→21:25)
[2020-12-23] MEDS: FAMOTIDINE 20 MG TAB PO SCH ×2 (10:51→21:25)
[2020-12-23] MEDS: ASCORBIC ACID 500 MG TAB PO SCH ×2 (10:51→21:25)
[2020-12-23] MEDS: ZINC SULFATE 220 MG CAP PO SCH (10:51)
[2020-12-23] MEDS: CHOLECALCIFEROL (VIT D3) 1000 UNIT (25 mcg) TAB PO SCH (10:51)
[2020-12-23] MEDS: LISINOPRIL 20 MG TAB PO SCH (10:55)
--- NOTE | 2020-12-23 14:55 | Progress Note ---
Assessment and Plan Acute hypoxemic respiratory failure COVID-19 infection Bilateral pneumonia Elevated serum transaminases Sepsis Anemia that is microcytic Thrombocytosis Lactic acidosis - continue awake proning - continue to wean supplemental oxygen for target O2 sat's > 92% acutely - discharge planning ok respiratory-phillips - no new issues otherwise, watch closely but continue care as below; - continue aspiration precautions - bronchodilators with pulmonary hygiene per RT - avoid nephrotoxins, renally dose all medications - avoid benzodiazepine's, reduce the possibility of delirium - complete antiinfective's per ID rec's - prn analgesia per pain score - Maintenance of sleep-wake cycle, avoid delirium - G.I. & VTE prophylaxis - PT/OT/ROM exercises - continue mobility protocols for pressure ulcer prophylaxis - Monitor hemodynamics closely - continue other care per attending / other consultants - discharge planning ongoing concurrently COVID SPECIFIC INTERVENTIONS - Remdesivir as per ID/Pulmonary developed protocols (not a candidate re: LFT's) - continue systemic steroids for severe COVID-19 infection - follow repeat COVID tests results - zinc and vitamin C supplementation - Monitor inflammatory markers per facility protocol - ferritin, Ddimer, CRP - therapeutic anticoagulation per system Protocol based on d-dimer and clinical considerations (VTE prophylaxis) - Continue contact and airborne isolation .... Re-evaluate in am & prn Subjective Date of service: 12/23/20 Principal diagnosis: Ac hypoxemic resp failure; COVID-19 infxn; Pneumonia; Sepsis Interval history: Patient is seen today for: Acute hypoxemic respiratory failure; COVID-19 infection; Bilateral pneumonia; Elevated serum transaminases; Sepsis; Lactic acidosis Seen and examined at bedside; 24hour events reviewed; nursing and respiratory care staff consulted; no adverse overnight events reported to me; resting in bed; still SOB; remains on 4L NC Objective Vital Signs - 12hr 12/23/20 12/23/20 12/23/20 04:00 09:38 10:00 Pulse Rate 95 H Blood Pressure O2 Sat by Pulse 94 99 Oximetry 12/23/20 12/23/20 12/23/20 10:55 11:32 12:01 Pulse Rate 97 H Blood Pressure 126/78 O2 Sat by Pulse 99 99 Oximetry Constitutional: no acute distress, other (middle aged female without increased respiratory effort at rest) Eyes: non-icteric ENT: oropharynx moist Neck: supple, no lymphadenopathy, no JVD Effort: normal Ascultation: Bilateral: rhonchi Percussion: Bilateral: not dull Cardiovascular: regular rate and rhythm Gastrointestinal: normoactive bowel sounds, soft, non-tender, non-distended Integumentary: normal Extremities: no cyanosis, no edema, pulses normal, no ischemia or petechiae Neurologic: normal mental status, non-focal exam, pupils equal and round, CN II- XII normal, motor strength normal and Psychiatric: mood appropriate, affect normal CBC and BMP: 12/13/20 07:25 12/13/20 07:25 ABG, PT/INR, D-dimer: ABG ABG pH 7.449 (7.320-7.450) 12/10/20 08:45 POC ABG pCO2 36.5 mmHg (32.0-48.0) 12/10/20 08:45 POC ABG pO2 64.5 mmHg (83-108) L 12/10/20 08:45 POC ABG HCO3 24.7 12/10/20 08:45 ABG O2 Saturation 91.0 (0-100) 12/10/20 08:45 PT/INR, D-dimer PT 16.4 Sec. (12.2-14.9) H 12/08/20 00:15 INR 1.27 (0.87-1.13) H 12/08/20 00:15 D-Dimer 660.07 ng/mlDDU (0-234) H 12/15/20 04:37 Abnormal lab findings: Abnormal Labs 12/08/20 12/08/20 12/08/20 00:15 00:15 00:15 WBC 17.0 H RBC 5.40 H Hgb 8.3 L Hct 29.7 L MCV 55 L MCH 16 L MCHC 28 L RDW 25.0 H Plt Count 464 H Will # (Auto) Seg Neutrophils % Seg Neuts % (Manual) 92.0 H Lymphocytes % (Manual) 1.0 L Nucleated RBC % Seg Neutrophils # Seg Neutrophils # Man 15.6 H Lymphocytes # (Manual) 0.2 L Monocytes # (Manual) PT 16.4 H INR 1.27 H D-Dimer 1129.87 H POC ABG pO2 ABG Hemoglobin ABG Oxyhemoglobin ABG Potassium ABG Chloride ABG Glucose Potassium 3.1 L Chloride BUN Creatinine Glucose 128 H Lactic Acid Calcium 8.3 L Ferritin Total Bilirubin 1.90 H Direct Bilirubin AST 309 H ALT 1384 H Alkaline Phosphatase 440 H Lactate Dehydrogenase C-Reactive Protein Total Protein Albumin 3.2 L Arterial Blood Glucose Coronavirus (PCR) 12/08/20 12/08/20 12/08/20 00:15 00:15 00:15 WBC RBC Hgb Hct MCV MCH MCHC RDW Plt Count Will # (Auto) Seg Neutrophils % Seg Neuts % (Manual) Lymphocytes % (Manual) Nucleated RBC % Seg Neutrophils # Seg Neutrophils # Man Lymphocytes # (Manual) Monocytes # (Manual) PT INR D-Dimer POC ABG pO2 ABG Hemoglobin ABG Oxyhemoglobin ABG Potassium ABG Chloride ABG Glucose Potassium Chloride BUN Creatinine Glucose Lactic Acid 2.30 H* Calcium Ferritin 289.8 H Total Bilirubin Direct Bilirubin AST ALT Alkaline Phosphatase Lactate Dehydrogenase 608 H C-Reactive Protein 20.70 H Total Protein Albumin Arterial Blood Glucose Coronavirus (PCR) 12/08/20 12/08/20 12/08/20 02:16 09:49 10:30 WBC RBC Hgb Hct MCV MCH MCHC RDW Plt Count Will # (Auto) Seg Neutrophils % Seg Neuts % (Manual) Lymphocytes % (Manual) Nucleated RBC % Seg Neutrophils # Seg Neutrophils # Man Lymphocytes # (Manual) Monocytes # (Manual) PT INR D-Dimer POC ABG pO2 ABG Hemoglobin ABG Oxyhemoglobin ABG Potassium ABG Chloride ABG Glucose Potassium Chloride BUN Creatinine Glucose Lactic Acid 2.50 H* 2.40 H* Calcium Ferritin Total Bilirubin Direct Bilirubin AST ALT Alkaline Phosphatase Lactate Dehydrogenase C-Reactive Protein Total Protein Albumin Arterial Blood Glucose Coronavirus (PCR) Positive A 12/09/20 12/09/20 12/09/20 04:33 04:33 09:13 WBC 21.0 H RBC 5.12 H Hgb 8.2 L Hct 29.1 L MCV 57 L MCH 16 L MCHC 28 L RDW 24.6 H Plt Count 509 H Will # (Auto) 1.3 H Seg Neutrophils % 84.3 H Seg Neuts % (Manual) 93.0 H Lymphocytes % (Manual) 2.0 L Nucleated RBC % 2.0 H Seg Neutrophils # 17.8 H Seg Neutrophils # Man 19.5 H Lymphocytes # (Manual) 0.4 L Monocytes # (Manual) PT INR D-Dimer POC ABG pO2 ABG Hemoglobin ABG Oxyhemoglobin ABG Potassium ABG Chloride ABG Glucose Potassium 3.5 L Chloride BUN 30 H 29 H Creatinine Glucose 190 H 129 H Lactic Acid Calcium Ferritin Total Bilirubin Direct Bilirubin AST 276 H ALT 867 H Alkaline Phosphatase 685 H Lactate Dehydrogenase C-Reactive Protein Total Protein Albumin 3.1 L Arterial Blood Glucose Coronavirus (PCR) 12/09/20 12/10/20 12/10/20 19:16 05:04 05:04 WBC RBC Hgb Hct MCV MCH MCHC RDW Plt Count Will # (Auto) Seg Neutrophils % Seg Neuts % (Manual) Lymphocytes % (Manual) Nucleated RBC % Seg Neutrophils # Seg Neutrophils # Man Lymphocytes # (Manual) Monocytes # (Manual) PT INR D-Dimer POC ABG pO2 ABG Hemoglobin ABG Oxyhemoglobin ABG Potassium ABG Chloride ABG Glucose Potassium 3.4 L Chloride BUN 25 H Creatinine Glucose 184 H Lactic Acid 2.80 H* 3.30 H* Calcium 7.9 L Ferritin Total Bilirubin Direct Bilirubin AST 277 H ALT 722 H Alkaline Phosphatase 773 H Lactate Dehydrogenase C-Reactive Protein Total Protein Albumin 2.9 L Arterial Blood Glucose Coronavirus (PCR) 12/10/20 12/10/20 12/10/20 08:11 08:45 11:15 WBC RBC Hgb Hct MCV MCH MCHC RDW Plt Count Will # (Auto) Seg Neutrophils % Seg Neuts % (Manual) Lymphocytes % (Manual) Nucleated RBC % Seg Neutrophils # Seg Neutrophils # Man Lymphocytes # (Manual) Monocytes # (Manual) PT INR D-Dimer POC ABG pO2 64.5 L ABG Hemoglobin 7.6 L ABG Oxyhemoglobin 90.2 L ABG Potassium 3.3 L ABG Chloride 108.0 H ABG Glucose 126 H Potassium Chloride BUN Creatinine Glucose Lactic Acid 2.10 H* 2.40 H* Calcium Ferritin Total Bilirubin Direct Bilirubin AST ALT Alkaline Phosphatase Lactate Dehydrogenase C-Reactive Protein Total Protein Albumin Arterial Blood Glucose 126 H Coronavirus (PCR) 12/10/20 12/10/20 12/11/20 13:36 19:13 00:49 WBC RBC Hgb Hct MCV MCH MCHC RDW Plt Count Will # (Auto) Seg Neutrophils % Seg Neuts % (Manual) Lymphocytes % (Manual) Nucleated RBC % Seg Neutrophils # Seg Neutrophils # Man Lymphocytes # (Manual) Monocytes # (Manual) PT INR D-Dimer POC ABG pO2 ABG Hemoglobin ABG Oxyhemoglobin ABG Potassium ABG Chloride ABG Glucose Potassium 3.4 L Chloride BUN Creatinine Glucose Lactic Acid 3.40 H* 2.30 H* Calcium Ferritin Total Bilirubin Direct Bilirubin AST ALT Alkaline Phosphatase Lactate Dehydrogenase C-Reactive Protein Total Protein Albumin Arterial Blood Glucose Coronavirus (PCR) 12/11/20 12/11/20 12/11/20 05:34 05:34 10:06 WBC RBC Hgb Hct MCV MCH MCHC RDW Plt Count Will # (Auto) Seg Neutrophils % Seg Neuts % (Manual) Lymphocytes % (Manual) Nucleated RBC % Seg Neutrophils # Seg Neutrophils # Man Lymphocytes # (Manual) Monocytes # (Manual) PT INR D-Dimer POC ABG pO2 ABG Hemoglobin ABG Oxyhemoglobin ABG Potassium ABG Chloride ABG Glucose Potassium Chloride 108.1 H BUN Creatinine 0.4 L Glucose 160 H Lactic Acid 2.30 H* 2.90 H* Calcium 8.3 L Ferritin Total Bilirubin Direct Bilirubin AST 249 H ALT 589 H Alkaline Phosphatase 701 H Lactate Dehydrogenase C-Reactive Protein Total Protein 5.9 L Albumin 3.0 L Arterial Blood Glucose Coronavirus (PCR) 12/11/20 12/11/20 12/11/20 12:38 12:38 12:38 WBC RBC Hgb Hct MCV MCH MCHC RDW Plt Count Will # (Auto) Seg Neutrophils % Seg Neuts % (Manual) Lymphocytes % (Manual) Nucleated RBC % Seg Neutrophils # Seg Neutrophils # Man Lymphocytes # (Manual) Monocytes # (Manual) PT INR D-Dimer 725.41 H POC ABG pO2 ABG Hemoglobin ABG Oxyhemoglobin ABG Potassium ABG Chloride ABG Glucose Potassium Chloride BUN Creatinine Glucose Lactic Acid 2.50 H* Calcium Ferritin Total Bilirubin Direct Bilirubin AST ALT Alkaline Phosphatase Lactate Dehydrogenase 447 H C-Reactive Protein 2.90 H Total Protein Albumin Arterial Blood Glucose Coronavirus (PCR) 12/12/20 12/12/20 12/12/20 05:01 05:01 05:01 WBC 15.3 H RBC Hgb 8.1 L Hct 28.4 L MCV 57 L MCH 16 L MCHC 29 L RDW 25.0 H Plt Count 809 H Will # (Auto) Seg Neutrophils % Seg Neuts % (Manual) 83.0 H Lymphocytes % (Manual) 10.0 L Nucleated RBC % 2.0 H Seg Neutrophils # Seg Neutrophils # Man 12.7 H Lymphocytes # (Manual) Monocytes # (Manual) 1.1 H PT INR D-Dimer 752.84 H POC ABG pO2 ABG Hemoglobin ABG Oxyhemoglobin ABG Potassium ABG Chloride ABG Glucose Potassium Chloride BUN 20 H Creatinine 0.4 L Glucose 120 H Lactic Acid Calcium Ferritin Total Bilirubin Direct Bilirubin AST 121 H ALT 469 H Alkaline Phosphatase 633 H Lactate Dehydrogenase 511 H C-Reactive Protein 3.50 H Total Protein Albumin 3.1 L Arterial Blood Glucose Coronavirus (PCR) 12/13/20 12/13/20 12/14/20 07:25 07:25 13:54 WBC 11.2 H RBC Hgb 7.2 L Hct 24.3 L MCV 57 L MCH 17 L MCHC RDW 25.5 H Plt Count 634 H Will # (Auto) Seg Neutrophils % Seg Neuts % (Manual) Lymphocytes % (Manual) Nucleated RBC % Seg Neutrophils # Seg Neutrophils # Man Lymphocytes # (Manual) Monocytes # (Manual) PT INR D-Dimer POC ABG pO2 ABG Hemoglobin ABG Oxyhemoglobin ABG Potassium ABG Chloride ABG Glucose Potassium Chloride 107.6 H BUN 25 H Creatinine 0.4 L Glucose 132 H Lactic Acid Calcium Ferritin Total Bilirubin Direct Bilirubin 0.3 H 0.4 H AST 72 H 115 H ALT 295 H 318 H Alkaline Phosphatase 466 H 617 H Lactate Dehydrogenase C-Reactive Protein Total Protein 6.1 L Albumin 2.7 L 3.0 L Arterial Blood Glucose Coronavirus (PCR) 12/14/20 12/14/20 12/15/20 13:54 13:54 04:37 WBC RBC Hgb Hct MCV MCH MCHC RDW Plt Count Will # (Auto) Seg Neutrophils % Seg Neuts % (Manual) Lymphocytes % (Manual) Nucleated RBC % Seg Neutrophils # Seg Neutrophils # Man Lymphocytes # (Manual) Monocytes # (Manual) PT INR D-Dimer 806.70 H POC ABG pO2 ABG Hemoglobin ABG Oxyhemoglobin ABG Potassium ABG Chloride ABG Glucose Potassium Chloride BUN Creatinine Glucose Lactic Acid Calcium Ferritin Total Bilirubin Direct Bilirubin 0.3 H AST 97 H ALT 281 H Alkaline Phosphatase 553 H Lactate Dehydrogenase C-Reactive Protein 1.70 H Total Protein 6.2 L Albumin 2.8 L Arterial Blood Glucose Coronavirus (PCR) 12/15/20 04:37 WBC RBC Hgb Hct MCV MCH MCHC RDW Plt Count Will # (Auto) Seg Neutrophils % Seg Neuts % (Manual) Lymphocytes % (Manual) Nucleated RBC % Seg Neutrophils # Seg Neutrophils # Man Lymphocytes # (Manual) Monocytes # (Manual) PT INR D-Dimer 660.07 H POC ABG pO2 ABG Hemoglobin ABG Oxyhemoglobin ABG Potassium ABG Chloride ABG Glucose Potassium Chloride BUN Creatinine Glucose Lactic Acid Calcium Ferritin Total Bilirubin Direct Bilirubin AST ALT Alkaline Phosphatase Lactate Dehydrogenase C-Reactive Protein Total Protein Albumin Arterial Blood Glucose Coronavirus (PCR) Allied health notes reviewed: nursing
[2020-12-23] MEDS: ALPRAZolam 0.25 MG TAB PO PRN ×2 (16:23→21:24)
[2020-12-23] MEDS: guaiFENesin/CODEINE 100-10MG ORAL LIQD 5 ML PO PRN ×2 (16:23→21:24)
[2020-12-24] MEDS: HYDROmorphone 1 MG/1 ML INJ IV PRN ×2 (00:47→13:39)
[2020-12-24] MEDS: guaiFENesin/CODEINE 100-10MG ORAL LIQD 5 ML PO PRN ×4 (04:22→22:29)
--- NOTE | 2020-12-24 07:39 | Progress Note ---
Assessment and Plan Assessment and plan: 50-year-old female with history of hypertension was brought to the emergency room because of shortness of breath, cough, fever, Covid positive. Patient was diagnosed with COVID-19 1 week ago. Since then patient complained of worsening shortness of breath. Patient states she has not seen a physician for this. Patient states she does not take any medicine. Patient states the fever is fluctuating. Patient states it responds well to Tylenol. Patient states her cough is dry. Patient states she has not been vaccinated for COVID-19. Patient complains of chills. Patient denies nausea vomiting. Patient denies diarrhea. Patient denies abdominal pain. Patient denies chest pain. Patient's ox saturation was 82%. Patient was found to have acute respiratory failure. Patient WBC 17.0 and chest x-ray shows pneumonia secondary to Covid. Patient was put on BiPAP (1) Acute hypoxic respiratory failure 2/2 Covid 19 PNA pulmonary following and note reviewed Patient is on 35% Fio2 with O2 sat 93-94% (2) COVID-19 Current Visit: Yes Status: Acute Plan to address problem: ID note reviewed inflammatory markers reviewed cont. Dexamethasone x 10 days Cleared for starting remdesivir as LFTs < 10 times normal monitor markers 3. Severe sepsis procalcitonin results reviewed ID note reviewed cont. ceftriaxone and azithromycin (4) LeuKocytosis: 2/2 sepsis monitor CBC (5) Hypertension Current Visit: Yes Status: Acute Plan to address problem: Hydralazine 10 mg IV every 6 hours as needed she has no hx of HTN 6) Transaminitis: results reviewed cont. to monitor (7) anemia (8) Anxiety (9) DVT prophylaxis Current Visit: Yes Status: Acute Plan to address problem: will stop heparin and start on lovenox. Pepcid 20 mg p.o. twice daily for GI prophylaxis. Patient is a full code. 12/09/2020 -Patient was on BiPAP with FiO2 of 100%, patient desaturated when she was off BiPAP momentarily. I put her on D5 half-normal saline for maintenance. Titrate oxygen as tolerated. -Pulmonary consulted, ID consulted. -Patient has elevated ALT and AST and is not a candidate for remdesivir. -Patient is on IV antibiotics and procalcitonin level is elevated, ID recommends to continue with IV antibiotics. ID said patient is not a candidate for Actemra because of the infection with elevated procalcitonin level. 12/10; Patient is on BiPAP, on Decadron. Remdesivir discontinued due to elevated liver enzymes. Patient not a candidate for Actemra because patient has elevated procalcitonin level. Continue with IV antibiotics. Prognosis is guarded. 12/11 Patient is A&O,A&O, c/o weakness and feels tired. C/O shortness of breath. requesting stool sofner. She denies f/c/CP/N/abd. pain 12/12: Continue supportive care. Wean oxygen as tolerated. Will obtain pulmonary consult will evaluate for possible Lasix therapy. Noted anemia with hemoglobin of 8.1 will monitor this closely. D-dimer is elevated so is AST and ALT and alk phos. This may preclude use of medications such as remdesivir which has been discontinued in relation to this. Patient remains critically ill. 12/13: Patient showing some improve, still with BiPAP requirements, continue supportive care, continued sterods, Remdesivr per ID, monitor renal function closely and LFT. wean oxygen as tolerated. Prognosis guarded 12/14: Patient seen and examined, she is showing good improvement, down to 10 liters except that she gets anxious. I spoke extensively with the family and updated them on her clinical condition 12/15: Patient continues to show good improvement, weaned down to 5L of oxygen with saturation of 99%. Will transfer to Medical floor and continue current management. 12/16: Patient was doing well this am, on 5 liters and sating 95%, later desated and was placed back on BIPAP. reassurance and counselling provided 12/17: Patient remains on oxygen high flow. I believe that she will be able to be weaned if she if we can control her anxiety. Discussed with nursing staff at bedside also discussed with the patient. Will begin LTAC referral in a.m. 12/18/20 patient is seen and examined. Less shortness of breath. No chest pain. Anxious. Is on high flow oxygen at 40 L with 75% FiO2. We cut down the FiO2 75% from 80%. Wean oxygen. Continue current management. LTAC referral 12/19: Ms. Jarrett continues to show some improvement, She is currently on 70% FIO2 and satting 99%. Discussed with respiratory therapist will try to wean down further. Will transfer to [facility] [place]. Continue to encourage slow deep breaths. Continue to use anxiolytics. Awaiting LTAC approval. Continue to monitor hemoglobin. 12/20: Patient seen and examined, patient needs to continue weaning of oxygen, satting 98% on 70%FIO2. Her anxiety level is improving, can transfer to [facility] 12/21: Patient showing good disposition. Currently FiO2 is down to 50% with saturation of 96% we will continue current management. Continue to encourage prone position. 12/22: Patient seen and examined this morning actually doing well. She is down to 3 L with a sat of 94%. She unfortunately has bouts of anxiety relative to the loss of her parents due to COVID-19 who unfortunately have not been buried and this makes her oxygen demand go up but while she comes down she is able to do well at 3 L. I think psychologically she will benefit from being discharged in 24 to 48 hours if her oxygen continues to improve she likely will need home oxygen as her history and as a result a walk test prior to discharge is appropriate. I also discussed with her brother who is also requested that tomorrow we will give an update to the sister about her condition prior to discharge. I have placed a walk test for tomorrow and have discussed with nursing staff also 12/23; patient was on 4L of oxygen saturating 95%. Patient has bouts of anxiety and on 0.25 mg of Xanax as needed. We will do home O2 evaluation and possible discharge today. Patient need PT OT evaluation. Will discuss with case management about her concerns stairs in her house. 12/24; patient was on 5 L of oxygen. Patient need PT OT evaluation. Try to call her brother yesterday but he could not miner pick his phone. Patient is deconditioned and very weak. Patient may need rehab after evaluated by PT OT. History Interval history: Patient was seen and evaluated this morning Patient was on 4 L of oxygen Patient was concerned that she has a lot of stairs in her house Patient was not evaluated by PT OT Patient is very weak and she could not walk yesterday. Hospitalist Physical - Physical exam Narrative exam: Patient was on 4 L of oxygen The patient appeared well nourished and normally developed. Vital signs as documented. Head exam is unremarkable. No scleral icterus . Neck is without jugular venous distension, thyromegaly, or carotid bruits. Lungs decreased air entry. No rales or rhonchi. Cardiac exam reveals regular rate and Rhythm. Abdominal exam reveals normal bowel sounds, nontender, no organomegaly. Extremities are nonedematous and both femoral and pedal pulses are normal. CLINICAL INFORMATICIST: Alert and oriented 3. No focal weakness. - Constitutional Vitals: Temp Pulse Resp BP Pulse Ox 98.9 F 90 16 143/78 93 12/24/20 03:30 12/24/20 03:30 12/24/20 03:30 12/24/20 03:30 12/24/20 07:14 General appearance: Present: no acute distress Results - Labs CBC & Chem 7: 12/13/20 07:25 12/13/20 07:25 Labs: Laboratory Last Values WBC 11.2 K/mm3 (4.5-11.0) H 12/13/20 07:25 RBC 4.26 M/mm3 (3.65-5.03) 12/13/20 07:25 Hgb 7.2 gm/dl (10.1-14.3) L 12/13/20 07:25 Hct 24.3 % (30.3-42.9) L 12/13/20 07:25 MCV 57 fl (79-97) L 12/13/20 07:25 MCH 17 pg (28-32) L 12/13/20 07:25 MCHC 30 % (30-34) 12/13/20 07:25 RDW 25.5 % (13.2-15.2) H 12/13/20 07:25 Plt Count 634 K/mm3 (140-440) H 12/13/20 07:25 Ida % (Auto) 6.0 % (0.0-7.3) 12/09/20 04:33 Ida # (Auto) 1.3 K/mm3 (0.0-0.8) H 12/09/20 04:33 Add Manual Diff Complete 12/12/20 05:01 Total Counted 100 12/12/20 05:01 Seg Neutrophils % 84.3 % (40.0-70.0) H 12/09/20 04:33 Seg Neuts % (Manual) 83.0 % (40.0-70.0) H 12/12/20 05:01 Band Neutrophils % 3.0 % 12/09/20 04:33 Lymphocytes % (Manual) 10.0 % (13.4-35.0) L 12/12/20 05:01 Monocytes % (Manual) 7.0 % (0.0-7.3) 12/12/20 05:01 Metamyelocytes % 1.0 % 12/08/20 00:15 Nucleated RBC % 2.0 % (0.0-0.9) H 12/12/20 05:01 Seg Neutrophils # 17.8 K/mm3 (1.8-7.7) H 12/09/20 04:33 Seg Neutrophils # Man 12.7 K/mm3 (1.8-7.7) H 12/12/20 05:01 Band Neutrophils # 0.0 K/mm3 12/12/20 05:01 Lymphocytes # (Manual) 1.5 K/mm3 (1.2-5.4) 12/12/20 05:01 Abs React Lymphs (Man) 0.0 K/mm3 12/12/20 05:01 Monocytes # (Manual) 1.1 K/mm3 (0.0-0.8) H 12/12/20 05:01 Eosinophils # (Manual) 0.0 K/mm3 (0.0-0.4) 12/12/20 05:01 Basophils # (Manual) 0.0 K/mm3 (0.0-0.1) 12/12/20 05:01 Metamyelocytes # 0.0 K/mm3 12/12/20 05:01 Myelocytes # 0.0 K/mm3 12/12/20 05:01 Promyelocytes # 0.0 K/mm3 12/12/20 05:01 Blast Cells # 0.0 K/mm3 12/12/20 05:01 WBC Morphology Not Reportable 12/12/20 05:01 Hypersegmented Neuts Not Reportable 12/12/20 05:01 Hyposegmented Neuts Not Reportable 12/12/20 05:01 Hypogranular Neuts Not Reportable 12/12/20 05:01 Smudge Cells Not Reportable 12/12/20 05:01 Toxic Granulation Not Reportable 12/12/20 05:01 Toxic Vacuolation Not Reportable 12/12/20 05:01 Dohle Bodies Not Reportable 12/12/20 05:01 Pelger-Huet Anomaly Not Reportable 12/12/20 05:01 Lauryn Rods Not Reportable 12/12/20 05:01 Platelet Estimate Consistent w auto 12/12/20 05:01 Clumped Platelets Not Reportable 12/12/20 05:01 Plt Clumps, EDTA Not Reportable 12/12/20 05:01 Large Platelets Not Reportable 12/12/20 05:01 Giant Platelets Not Reportable 12/12/20 05:01 Platelet Satelliting Not Reportable 12/12/20 05:01 Plt Morphology Comment Not Reportable 12/12/20 05:01 RBC Morphology Not Reportable 12/12/20 05:01 Dimorphic RBCs Not Reportable 12/12/20 05:01 Polychromasia Not Reportable 12/12/20 05:01 Hypochromasia 3+ 12/12/20 05:01 Poikilocytosis 1+ 12/12/20 05:01 Anisocytosis 2+ 12/12/20 05:01 Microcytosis 2+ 12/12/20 05:01 Macrocytosis Not Reportable 12/12/20 05:01 Spherocytes Not Reportable 12/12/20 05:01 Pappenheimer Bodies Not Reportable 12/12/20 05:01 Sickle Cells Not Reportable 12/12/20 05:01 Target Cells Not Reportable 12/12/20 05:01 Tear Drop Cells Few 12/12/20 05:01 Ovalocytes Few 12/12/20 05:01 Helmet Cells Not Reportable 12/12/20 05:01 [place] Bodies Not Reportable 12/12/20 05:01 [place] Rings Not Reportable 12/12/20 05:01 Jens Cells Not Reportable 12/12/20 05:01 Bite Cells Not Reportable 12/12/20 05:01 Crenated Cell Not Reportable 12/12/20 05:01 Elliptocytes Few 12/12/20 05:01 Acanthocytes (Spur) Not Reportable 12/12/20 05:01 Rouleaux Not Reportable 12/12/20 05:01 Hemoglobin C Crystals Not Reportable 12/12/20 05:01 Schistocytes Not Reportable 12/12/20 05:01 Malaria parasites Not Reportable 12/12/20 05:01 Brant Bodies Not Reportable 12/12/20 05:01 Hem Pathologist Commnt No 12/12/20 05:01 PT 16.4 Sec. (12.2-14.9) H 12/08/20 00:15 INR 1.27 (0.87-1.13) H 12/08/20 00:15 APTT 29.6 Sec. (24.2-36.6) 12/08/20 00:15 D-Dimer 660.07 ng/mlDDU (0-234) H 12/15/20 04:37 ABG pH 7.449 (7.320-7.450) 12/10/20 08:45 POC ABG pCO2 36.5 mmHg (32.0-48.0) 12/10/20 08:45 POC ABG pO2 64.5 mmHg (83-108) L 12/10/20 08:45 POC ABG HCO3 24.7 12/10/20 08:45 ABG O2 Saturation 91.0 (0-100) 12/10/20 08:45 POC ABG Base Excess 0.8 12/10/20 08:45 ABG Hemoglobin 7.6 (12.0-17.5) L 12/10/20 08:45 ABG Oxyhemoglobin 90.2 (94-98) L 12/10/20 08:45 ABG Methemoglobin 0.1 (0.0-1.5) 12/10/20 08:45 ABG Sodium 139.9 mmol/L (136.0-145.0) 12/10/20 08:45 ABG Potassium 3.3 mmol/L (3.40-4.50) L 12/10/20 08:45 ABG Chloride 108.0 mmol/L (98-107) H 12/10/20 08:45 ABG Glucose 126 mg/dL (65-95) H 12/10/20 08:45 Carboxyhemoglobin 0.8 (0.5-1.5) 12/10/20 08:45 FiO2 % 35.0 12/10/20 08:45 Sodium 141 mmol/L (137-145) 12/13/20 07:25 Potassium 4.5 mmol/L (3.6-5.0) 12/13/20 07:25 Chloride 107.6 mmol/L (98-107) H 12/13/20 07:25 Carbon Dioxide 23 mmol/L (22-30) 12/13/20 07:25 Anion Gap 15 mmol/L 12/13/20 07:25 BUN 25 mg/dL (7-17) H 12/13/20 07:25 Creatinine 0.4 mg/dL (0.6-1.2) L 12/13/20 07:25 Estimated GFR > 60 ml/min 12/13/20 07:25 BUN/Creatinine Ratio 63 % 12/13/20 07:25 Glucose 132 mg/dL (65-100) H 12/13/20 07:25 Lactic Acid 2.50 mmol/L (0.7-2.0) H* 12/11/20 12:38 Calcium 8.4 mg/dL (8.4-10.2) 12/13/20 07:25 Ferritin 147.8 ng/mL (10.0-200.0) 12/15/20 04:37 Total Bilirubin 0.60 mg/dL (0.1-1.2) 12/15/20 04:37 Direct Bilirubin 0.3 mg/dL (0-0.2) H 12/15/20 04:37 Indirect Bilirubin 0.3 mg/dL 12/15/20 04:37 AST 97 units/L (5-40) H 12/15/20 04:37 ALT 281 units/L (7-56) H 12/15/20 04:37 Alkaline Phosphatase 553 units/L (35-129) H 12/15/20 04:37 Lactate Dehydrogenase 511 units/L (91-180) H 12/12/20 05:01 C-Reactive Protein 1.20 mg/dL (0.00-1.30) 12/15/20 04:37 Total Protein 6.2 g/dL (6.3-8.2) L 12/15/20 04:37 Albumin 2.8 g/dL (3.9-5) L 12/15/20 04:37 Albumin/Globulin Ratio 0.8 % 12/15/20 04:37 Procalcitonin 0.83 ng/mL (<0.15) 12/15/20 04:37 Arterial Blood Glucose 126 mg/dL (65-95) H 12/10/20 08:45 Coronavirus (PCR) Positive (Negative) A 12/08/20 10:30 Hepatitis A IgM Ab Non-reactive (NonReactive) 12/13/20 07:25 Hep Bs Antigen Nonreactive (Negative) 12/13/20 07:25 Hep B Core IgM Ab Non-reactive (NonReactive) 12/13/20 07:25 Hepatitis C Antibody Non-reactive (NonReactive) 12/13/20 07:25 Kilpatrick/IV: Voiding Method Bedside Commode Active Medications - Current Medications Current Medications: Generic Name Dose Route Start Last Admin Trade Name Freq PRN Reason Stop Dose Admin Acetaminophen 650 mg 12/08/20 05:31 12/22/20 15:10 Acetaminophen 325 Mg Tab PO 650 mg Q4H PRN Administration Pain MILD(1-3)/Fever >100.5/[place] Albuterol 2.5 mg 12/08/20 05:31 Albuterol 2.5 Mg/3 Ml Nebu IH Q4HRT PRN Shortness Of Breath Alprazolam 0.25 mg 12/16/20 13:09 12/23/20 21:24 Alprazolam 0.25 Mg Tab PO 0.25 mg Q6H PRN Administration Anxiety Ascorbic Acid 500 mg 12/09/20 10:00 12/23/20 21:25 Ascorbic Acid 500 Mg Tab PO 500 mg BID DARIAN Administration Cholecalciferol 1,000 unit 12/09/20 10:00 12/23/20 10:51 Cholecalciferol (Vit D3) 1000 Unit (25 Mcg) Tab PO 1,000 unit QDAY DARIAN Administration Enoxaparin Sodium 80 mg 12/19/20 10:00 12/23/20 21:25 Enoxaparin 80 Mg/0.8 Ml Inj SUB-Q 80 mg Q12HR DARIAN Administration Protocol Famotidine 20 mg 12/08/20 10:00 12/23/20 21:25 Famotidine 20 Mg Tab PO 20 mg BID DARIAN Administration Hydromorphone HCl 0.5 mg 12/08/20 05:31 12/24/20 00:47 Hydromorphone 1 Mg/1 Ml Inj IV 0.5 mg Q3H PRN Administration Pain , Severe (7-10) Lisinopril 20 mg 12/15/20 19:00 12/23/20 10:55 Lisinopril 20 Mg Tab PO 20 mg QDAY DARIAN Administration Ondansetron HCl 4 mg 12/08/20 05:31 Ondansetron 4 Mg/2 Ml Inj IV Q8H PRN Nausea And Vomiting Oxycodone/Acetaminophen 1 tab 12/08/20 05:31 12/22/20 23:41 Oxycodone /Acetaminophen 5-325mg Tab PO 1 tab Q6H PRN Administration Pain, Moderate (4-6) Polyethylene Glycol 17 gm 12/11/20 15:53 Polyethylene Glycol 3350 17 Gm Powder PO QDAY PRN Constipation Promethazine HCl 12.5 mg 12/20/20 21:54 Promethazine 12.5 Mg/10 Ml Oral Liqd PO Q6H PRN Nausea And Vomiting Pseudoephedrine/Acetam/Chlorphenir 10 ml 12/23/20 13:00 12/24/20 04:22 Guaifenesin/Codeine 100-10mg Oral Liqd 5 Ml PO 10 ml Q4H PRN Administration Cough Sodium Chloride 10 ml 12/08/20 10:00 12/23/20 21:26 Sodium Chloride 0.9% 10 Ml Flush Syringe IV 10 ml BID DARIAN Administration Sodium Chloride 10 ml 12/08/20 05:31 Sodium Chloride 0.9% 10 Ml Flush Syringe IV PRN PRN LINE FLUSH Zinc Sulfate 220 mg 12/09/20 10:00 12/23/20 10:51 Zinc Sulfate 220 Mg Cap PO 220 mg QDAY DARIAN Administration Nutrition/Malnutrition Assess - Dietary Evaluation Nutrition/Malnutrition Findings: Nutrition Notes Start: 12/18/20 14:21 Freq: Status: Active Protocol: Document 12/18/20 14:21 (Rec: 12/18/20 14:22 [id number]) Nutrition Notes Need for Assessment generated from: LOS Initial or Follow up Brief Note Subjective/Other Information Pt eating 100% of meals. Nutrition Intervention Revisit per MD consult or patient Sign Off request:
[2020-12-24] MEDS: ENOXAPARIN 100 MG/1 ML INJ SUB-Q SCH ×2 (09:50→21:00)
[2020-12-24] MEDS: FAMOTIDINE 20 MG TAB PO SCH ×2 (09:53→21:01)
[2020-12-24] MEDS: ZINC SULFATE 220 MG CAP PO SCH (09:53)
[2020-12-24] MEDS: LISINOPRIL 20 MG TAB PO SCH (09:53)
[2020-12-24] MEDS: CHOLECALCIFEROL (VIT D3) 1000 UNIT (25 mcg) TAB PO SCH (09:53)
[2020-12-24] MEDS: ASCORBIC ACID 500 MG TAB PO SCH ×2 (09:53→21:01)
--- NOTE | 2020-12-24 14:42 | Progress Note ---
Assessment and Plan Acute hypoxemic respiratory failure COVID-19 infection Bilateral pneumonia Elevated serum transaminases Sepsis Anemia that is microcytic Thrombocytosis Lactic acidosis - prn CXR's & ABG's at this point - no new issues otherwise, watch closely but continue care as below; - continue awake proning - continue to wean supplemental oxygen for target O2 sat's > 92% acutely - continue aspiration precautions - bronchodilators with pulmonary hygiene per RT - avoid nephrotoxins, renally dose all medications - avoid benzodiazepine's, reduce the possibility of delirium - complete antiinfective's per ID rec's - prn analgesia per pain score - Maintenance of sleep-wake cycle, avoid delirium - G.I. & VTE prophylaxis - PT/OT/ROM exercises - continue mobility protocols for pressure ulcer prophylaxis - Monitor hemodynamics closely - continue other care per attending / other consultants - discharge planning ongoing concurrently COVID SPECIFIC INTERVENTIONS - Remdesivir as per ID/Pulmonary developed protocols (not a candidate re: LFT's) - continue systemic steroids for severe COVID-19 infection - follow repeat COVID tests results - zinc and vitamin C supplementation - Monitor inflammatory markers per facility protocol - ferritin, Ddimer, CRP - therapeutic anticoagulation per system Protocol based on d-dimer and clinical considerations (VTE prophylaxis) - Continue contact and airborne isolation .... Re-evaluate in am & prn Subjective Date of service: 12/24/20 Principal diagnosis: Ac hypoxemic resp failure; COVID-19 infxn; Pneumonia; Sepsis Interval history: Patient is seen today for: Acute hypoxemic respiratory failure; COVID-19 infection; Bilateral pneumonia; Elevated serum transaminases; Sepsis; Lactic acidosis Seen and examined at bedside; 24hour events reviewed; nursing and respiratory care staff consulted; no adverse overnight events reported to me; resting in bed; FiO2 increased to 40% today; denies chest pains; no hemoptysis Objective Vital Signs - 12hr 12/24/20 12/24/20 12/24/20 03:30 07:14 10:00 Temperature 98.9 F Pulse Rate 90 Respiratory 16 Rate Blood Pressure 143/78 O2 Sat by Pulse 81 L 93 95 Oximetry 12/24/20 12/24/20 10:43 12:21 Temperature Pulse Rate 102 H Respiratory Rate Blood Pressure O2 Sat by Pulse 96 94 Oximetry Constitutional: no acute distress, other (middle aged female without increased respiratory effort at rest) Eyes: non-icteric ENT: oropharynx moist Neck: supple, no lymphadenopathy, no JVD Effort: normal Ascultation: Bilateral: rhonchi (bases posteriorly) Percussion: Bilateral: not dull Cardiovascular: regular rate and rhythm Gastrointestinal: normoactive bowel sounds, soft, non-tender, non-distended Integumentary: normal Extremities: no cyanosis, no edema, pulses normal, no ischemia or petechiae Neurologic: normal mental status, non-focal exam, pupils equal and round, CN II- XII normal, motor strength normal and Psychiatric: mood appropriate, affect normal CBC and BMP: 12/13/20 07:25 12/13/20 07:25 ABG, PT/INR, D-dimer: ABG ABG pH 7.449 (7.320-7.450) 12/10/20 08:45 POC ABG pCO2 36.5 mmHg (32.0-48.0) 12/10/20 08:45 POC ABG pO2 64.5 mmHg (83-108) L 12/10/20 08:45 POC ABG HCO3 24.7 12/10/20 08:45 ABG O2 Saturation 91.0 (0-100) 12/10/20 08:45 PT/INR, D-dimer PT 16.4 Sec. (12.2-14.9) H 12/08/20 00:15 INR 1.27 (0.87-1.13) H 12/08/20 00:15 D-Dimer 660.07 ng/mlDDU (0-234) H 12/15/20 04:37 Abnormal lab findings: Abnormal Labs 12/08/20 12/08/20 12/08/20 00:15 00:15 00:15 WBC 17.0 H RBC 5.40 H Hgb 8.3 L Hct 29.7 L MCV 55 L MCH 16 L MCHC 28 L RDW 25.0 H Plt Count 464 H Long # (Auto) Seg Neutrophils % Seg Neuts % (Manual) 92.0 H Lymphocytes % (Manual) 1.0 L Nucleated RBC % Seg Neutrophils # Seg Neutrophils # Man 15.6 H Lymphocytes # (Manual) 0.2 L Monocytes # (Manual) PT 16.4 H INR 1.27 H D-Dimer 1129.87 H POC ABG pO2 ABG Hemoglobin ABG Oxyhemoglobin ABG Potassium ABG Chloride ABG Glucose Potassium 3.1 L Chloride BUN Creatinine Glucose 128 H Lactic Acid Calcium 8.3 L Ferritin Total Bilirubin 1.90 H Direct Bilirubin AST 309 H ALT 1384 H Alkaline Phosphatase 440 H Lactate Dehydrogenase C-Reactive Protein Total Protein Albumin 3.2 L Arterial Blood Glucose Coronavirus (PCR) 12/08/20 12/08/20 12/08/20 00:15 00:15 00:15 WBC RBC Hgb Hct MCV MCH MCHC RDW Plt Count Long # (Auto) Seg Neutrophils % Seg Neuts % (Manual) Lymphocytes % (Manual) Nucleated RBC % Seg Neutrophils # Seg Neutrophils # Man Lymphocytes # (Manual) Monocytes # (Manual) PT INR D-Dimer POC ABG pO2 ABG Hemoglobin ABG Oxyhemoglobin ABG Potassium ABG Chloride ABG Glucose Potassium Chloride BUN Creatinine Glucose Lactic Acid 2.30 H* Calcium Ferritin 289.8 H Total Bilirubin Direct Bilirubin AST ALT Alkaline Phosphatase Lactate Dehydrogenase 608 H C-Reactive Protein 20.70 H Total Protein Albumin Arterial Blood Glucose Coronavirus (PCR) 12/08/20 12/08/20 12/08/20 02:16 09:49 10:30 WBC RBC Hgb Hct MCV MCH MCHC RDW Plt Count Long # (Auto) Seg Neutrophils % Seg Neuts % (Manual) Lymphocytes % (Manual) Nucleated RBC % Seg Neutrophils # Seg Neutrophils # Man Lymphocytes # (Manual) Monocytes # (Manual) PT INR D-Dimer POC ABG pO2 ABG Hemoglobin ABG Oxyhemoglobin ABG Potassium ABG Chloride ABG Glucose Potassium Chloride BUN Creatinine Glucose Lactic Acid 2.50 H* 2.40 H* Calcium Ferritin Total Bilirubin Direct Bilirubin AST ALT Alkaline Phosphatase Lactate Dehydrogenase C-Reactive Protein Total Protein Albumin Arterial Blood Glucose Coronavirus (PCR) Positive A 12/09/20 12/09/20 12/09/20 04:33 04:33 09:13 WBC 21.0 H RBC 5.12 H Hgb 8.2 L Hct 29.1 L MCV 57 L MCH 16 L MCHC 28 L RDW 24.6 H Plt Count 509 H Long # (Auto) 1.3 H Seg Neutrophils % 84.3 H Seg Neuts % (Manual) 93.0 H Lymphocytes % (Manual) 2.0 L Nucleated RBC % 2.0 H Seg Neutrophils # 17.8 H Seg Neutrophils # Man 19.5 H Lymphocytes # (Manual) 0.4 L Monocytes # (Manual) PT INR D-Dimer POC ABG pO2 ABG Hemoglobin ABG Oxyhemoglobin ABG Potassium ABG Chloride ABG Glucose Potassium 3.5 L Chloride BUN 30 H 29 H Creatinine Glucose 190 H 129 H Lactic Acid Calcium Ferritin Total Bilirubin Direct Bilirubin AST 276 H ALT 867 H Alkaline Phosphatase 685 H Lactate Dehydrogenase C-Reactive Protein Total Protein Albumin 3.1 L Arterial Blood Glucose Coronavirus (PCR) 12/09/20 12/10/20 12/10/20 19:16 05:04 05:04 WBC RBC Hgb Hct MCV MCH MCHC RDW Plt Count Long # (Auto) Seg Neutrophils % Seg Neuts % (Manual) Lymphocytes % (Manual) Nucleated RBC % Seg Neutrophils # Seg Neutrophils # Man Lymphocytes # (Manual) Monocytes # (Manual) PT INR D-Dimer POC ABG pO2 ABG Hemoglobin ABG Oxyhemoglobin ABG Potassium ABG Chloride ABG Glucose Potassium 3.4 L Chloride BUN 25 H Creatinine Glucose 184 H Lactic Acid 2.80 H* 3.30 H* Calcium 7.9 L Ferritin Total Bilirubin Direct Bilirubin AST 277 H ALT 722 H Alkaline Phosphatase 773 H Lactate Dehydrogenase C-Reactive Protein Total Protein Albumin 2.9 L Arterial Blood Glucose Coronavirus (PCR) 12/10/20 12/10/20 12/10/20 08:11 08:45 11:15 WBC RBC Hgb Hct MCV MCH MCHC RDW Plt Count Long # (Auto) Seg Neutrophils % Seg Neuts % (Manual) Lymphocytes % (Manual) Nucleated RBC % Seg Neutrophils # Seg Neutrophils # Man Lymphocytes # (Manual) Monocytes # (Manual) PT INR D-Dimer POC ABG pO2 64.5 L ABG Hemoglobin 7.6 L ABG Oxyhemoglobin 90.2 L ABG Potassium 3.3 L ABG Chloride 108.0 H ABG Glucose 126 H Potassium Chloride BUN Creatinine Glucose Lactic Acid 2.10 H* 2.40 H* Calcium Ferritin Total Bilirubin Direct Bilirubin AST ALT Alkaline Phosphatase Lactate Dehydrogenase C-Reactive Protein Total Protein Albumin Arterial Blood Glucose 126 H Coronavirus (PCR) 12/10/20 12/10/20 12/11/20 13:36 19:13 00:49 WBC RBC Hgb Hct MCV MCH MCHC RDW Plt Count Long # (Auto) Seg Neutrophils % Seg Neuts % (Manual) Lymphocytes % (Manual) Nucleated RBC % Seg Neutrophils # Seg Neutrophils # Man Lymphocytes # (Manual) Monocytes # (Manual) PT INR D-Dimer POC ABG pO2 ABG Hemoglobin ABG Oxyhemoglobin ABG Potassium ABG Chloride ABG Glucose Potassium 3.4 L Chloride BUN Creatinine Glucose Lactic Acid 3.40 H* 2.30 H* Calcium Ferritin Total Bilirubin Direct Bilirubin AST ALT Alkaline Phosphatase Lactate Dehydrogenase C-Reactive Protein Total Protein Albumin Arterial Blood Glucose Coronavirus (PCR) 12/11/20 12/11/20 12/11/20 05:34 05:34 10:06 WBC RBC Hgb Hct MCV MCH MCHC RDW Plt Count Long # (Auto) Seg Neutrophils % Seg Neuts % (Manual) Lymphocytes % (Manual) Nucleated RBC % Seg Neutrophils # Seg Neutrophils # Man Lymphocytes # (Manual) Monocytes # (Manual) PT INR D-Dimer POC ABG pO2 ABG Hemoglobin ABG Oxyhemoglobin ABG Potassium ABG Chloride ABG Glucose Potassium Chloride 108.1 H BUN Creatinine 0.4 L Glucose 160 H Lactic Acid 2.30 H* 2.90 H* Calcium 8.3 L Ferritin Total Bilirubin Direct Bilirubin AST 249 H ALT 589 H Alkaline Phosphatase 701 H Lactate Dehydrogenase C-Reactive Protein Total Protein 5.9 L Albumin 3.0 L Arterial Blood Glucose Coronavirus (PCR) 12/11/20 12/11/20 12/11/20 12:38 12:38 12:38 WBC RBC Hgb Hct MCV MCH MCHC RDW Plt Count Long # (Auto) Seg Neutrophils % Seg Neuts % (Manual) Lymphocytes % (Manual) Nucleated RBC % Seg Neutrophils # Seg Neutrophils # Man Lymphocytes # (Manual) Monocytes # (Manual) PT INR D-Dimer 725.41 H POC ABG pO2 ABG Hemoglobin ABG Oxyhemoglobin ABG Potassium ABG Chloride ABG Glucose Potassium Chloride BUN Creatinine Glucose Lactic Acid 2.50 H* Calcium Ferritin Total Bilirubin Direct Bilirubin AST ALT Alkaline Phosphatase Lactate Dehydrogenase 447 H C-Reactive Protein 2.90 H Total Protein Albumin Arterial Blood Glucose Coronavirus (PCR) 12/12/20 12/12/20 12/12/20 05:01 05:01 05:01 WBC 15.3 H RBC Hgb 8.1 L Hct 28.4 L MCV 57 L MCH 16 L MCHC 29 L RDW 25.0 H Plt Count 809 H Long # (Auto) Seg Neutrophils % Seg Neuts % (Manual) 83.0 H Lymphocytes % (Manual) 10.0 L Nucleated RBC % 2.0 H Seg Neutrophils # Seg Neutrophils # Man 12.7 H Lymphocytes # (Manual) Monocytes # (Manual) 1.1 H PT INR D-Dimer 752.84 H POC ABG pO2 ABG Hemoglobin ABG Oxyhemoglobin ABG Potassium ABG Chloride ABG Glucose Potassium Chloride BUN 20 H Creatinine 0.4 L Glucose 120 H Lactic Acid Calcium Ferritin Total Bilirubin Direct Bilirubin AST 121 H ALT 469 H Alkaline Phosphatase 633 H Lactate Dehydrogenase 511 H C-Reactive Protein 3.50 H Total Protein Albumin 3.1 L Arterial Blood Glucose Coronavirus (PCR) 12/13/20 12/13/20 12/14/20 07:25 07:25 13:54 WBC 11.2 H RBC Hgb 7.2 L Hct 24.3 L MCV 57 L MCH 17 L MCHC RDW 25.5 H Plt Count 634 H Long # (Auto) Seg Neutrophils % Seg Neuts % (Manual) Lymphocytes % (Manual) Nucleated RBC % Seg Neutrophils # Seg Neutrophils # Man Lymphocytes # (Manual) Monocytes # (Manual) PT INR D-Dimer POC ABG pO2 ABG Hemoglobin ABG Oxyhemoglobin ABG Potassium ABG Chloride ABG Glucose Potassium Chloride 107.6 H BUN 25 H Creatinine 0.4 L Glucose 132 H Lactic Acid Calcium Ferritin Total Bilirubin Direct Bilirubin 0.3 H 0.4 H AST 72 H 115 H ALT 295 H 318 H Alkaline Phosphatase 466 H 617 H Lactate Dehydrogenase C-Reactive Protein Total Protein 6.1 L Albumin 2.7 L 3.0 L Arterial Blood Glucose Coronavirus (PCR) 12/14/20 12/14/20 12/15/20 13:54 13:54 04:37 WBC RBC Hgb Hct MCV MCH MCHC RDW Plt Count Long # (Auto) Seg Neutrophils % Seg Neuts % (Manual) Lymphocytes % (Manual) Nucleated RBC % Seg Neutrophils # Seg Neutrophils # Man Lymphocytes # (Manual) Monocytes # (Manual) PT INR D-Dimer 806.70 H POC ABG pO2 ABG Hemoglobin ABG Oxyhemoglobin ABG Potassium ABG Chloride ABG Glucose Potassium Chloride BUN Creatinine Glucose Lactic Acid Calcium Ferritin Total Bilirubin Direct Bilirubin 0.3 H AST 97 H ALT 281 H Alkaline Phosphatase 553 H Lactate Dehydrogenase C-Reactive Protein 1.70 H Total Protein 6.2 L Albumin 2.8 L Arterial Blood Glucose Coronavirus (PCR) 12/15/20 04:37 WBC RBC Hgb Hct MCV MCH MCHC RDW Plt Count Long # (Auto) Seg Neutrophils % Seg Neuts % (Manual) Lymphocytes % (Manual) Nucleated RBC % Seg Neutrophils # Seg Neutrophils # Man Lymphocytes # (Manual) Monocytes # (Manual) PT INR D-Dimer 660.07 H POC ABG pO2 ABG Hemoglobin ABG Oxyhemoglobin ABG Potassium ABG Chloride ABG Glucose Potassium Chloride BUN Creatinine Glucose Lactic Acid Calcium Ferritin Total Bilirubin Direct Bilirubin AST ALT Alkaline Phosphatase Lactate Dehydrogenase C-Reactive Protein Total Protein Albumin Arterial Blood Glucose Coronavirus (PCR) Allied health notes reviewed: nursing
[2020-12-25 08:50] LABS: Mean Corpuscular HGB Conc 28 % (30-34); Red Blood Count 5.13 M/mm3 (3.65-5.03)
[2020-12-25 08:51] LABS: Hematocrit 32.9 % (30.3-42.9); Hemoglobin 9.2 gm/dl (10.1-14.3); Mean Corpuscular Volume 64 fl (79-97); Platelet Count 203 K/mm3 (140-440); Red Cell Distribution Width 28.1 % (13.2-15.2)
[2020-12-25 08:55] LABS: Alanine Aminotransferase 101 units/L (7-56); Albumin 3.1 g/dL (3.9-5); Blood Urea Nitrogen 19 mg/dL (7-17); Calcium 9.6 mg/dL (8.4-10.2); Hemolysis Index 103
[2020-12-25 09:00] LABS: BUN/Creatinine Ratio 48
[2020-12-25] MEDS: ALPRAZolam 0.25 MG TAB PO PRN (10:05)
[2020-12-25] MEDS: ENOXAPARIN 100 MG/1 ML INJ SUB-Q SCH ×2 (10:06→22:14)
[2020-12-25] MEDS: ZINC SULFATE 220 MG CAP PO SCH (10:07)
[2020-12-25] MEDS: LISINOPRIL 20 MG TAB PO SCH (10:07)
[2020-12-25] MEDS: CHOLECALCIFEROL (VIT D3) 1000 UNIT (25 mcg) TAB PO SCH (10:07)
[2020-12-25] MEDS: ASCORBIC ACID 500 MG TAB PO SCH ×2 (10:07→22:11)
[2020-12-25] MEDS: FAMOTIDINE 20 MG TAB PO SCH ×2 (10:07→22:11)
--- NOTE | 2020-12-25 12:28 | Progress Note ---
Subjective Date of service: 12/25/20 Principal diagnosis: Ac hypoxemic resp failure; COVID-19 infxn; Pneumonia; Sepsis Interval history: 50-year-old female with history of hypertension was brought to the emergency room because of shortness of breath, cough, fever, Covid positive. Patient was diagnosed with COVID-19 1 week ago. Since then patient complained of worsening shortness of breath. Patient states she has not seen a physician for this. Patient states she does not take any medicine. Patient states the fever is fluctuating. Patient states it responds well to Tylenol. Patient states her cough is dry. Patient states she has not been vaccinated for COVID-19. Patient complains of chills. Patient denies nausea vomiting. Patient denies diarrhea. Patient denies abdominal pain. Patient denies chest pain. Patient's ox saturation was 82%. Patient was found to have acute respiratory failure. Patient WBC 17.0 and chest x-ray shows pneumonia secondary to Covid. Patient was put on BiPAP 12/09/2020 -Patient was on BiPAP with FiO2 of 100%, patient desaturated when she was off BiPAP momentarily. I put her on D5 half-normal saline for maintenance. Titrate oxygen as tolerated. -Pulmonary consulted, ID consulted. -Patient has elevated ALT and AST and is not a candidate for remdesivir. -Patient is on IV antibiotics and procalcitonin level is elevated, ID recommends to continue with IV antibiotics. ID said patient is not a candidate for Actemra because of the infection with elevated procalcitonin level. 12/10; Patient is on BiPAP, on Decadron. Remdesivir discontinued due to elevated liver enzymes. Patient not a candidate for Actemra because patient has elevated procalcitonin level. Continue with IV antibiotics. Prognosis is guarded. 12/11 Patient is A&O,A&O, c/o weakness and feels tired. C/O shortness of breath. requesting stool sofner. She denies f/c/CP/N/abd. pain 12/12: Continue supportive care. Wean oxygen as tolerated. Will obtain pulmonary consult will evaluate for possible Lasix therapy. Noted anemia with hemoglobin of 8.1 will monitor this closely. D-dimer is elevated so is AST and ALT and alk phos. This may preclude use of medications such as remdesivir which has been discontinued in relation to this. Patient remains critically ill. 12/13: Patient showing some improve, still with BiPAP requirements, continue supportive care, continued sterods, Remdesivr per ID, monitor renal function closely and LFT. wean oxygen as tolerated. Prognosis guarded 12/14: Patient seen and examined, she is showing good improvement, down to 10 liters except that she gets anxious. I spoke extensively with the family and updated them on her clinical condition 12/15: Patient continues to show good improvement, weaned down to 5L of oxygen with saturation of 99%. Will transfer to Medical floor and continue current management. 12/16: Patient was doing well this am, on 5 liters and sating 95%, later desated and was placed back on BIPAP. reassurance and counselling provided 12/17: Patient remains on oxygen high flow. I believe that she will be able to be weaned if she if we can control her anxiety. Discussed with nursing staff at bedside also discussed with the patient. Will begin LTAC referral in a.m. 12/18/20 patient is seen and examined. Less shortness of breath. No chest pain. Anxious. Is on high flow oxygen at 40 L with 75% FiO2. We cut down the FiO2 75% from 80%. Wean oxygen. Continue current management. LTAC referral 12/19: Ms. Jarrett continues to show some improvement, She is currently on 70% FIO2 and satting 99%. Discussed with respiratory therapist will try to wean down further. Will transfer to [facility]. Continue to encourage slow deep breaths. Continue to use anxiolytics. Awaiting LTAC approval. Continue to monitor hemoglobin. 12/20: Patient seen and examined, patient needs to continue weaning of oxygen, satting 98% on 70%FIO2. Her anxiety level is improving, can transfer to [facility] 12/21: Patient showing good disposition. Currently FiO2 is down to 50% with saturation of 96% we will continue current management. Continue to encourage prone position. 12/22: Patient seen and examined this morning actually doing well. She is down to 3 L with a sat of 94%. She unfortunately has bouts of anxiety relative to the loss of her parents due to COVID-19 who unfortunately have not been buried and this makes her oxygen demand go up but while she comes down she is able to do well at 3 L. I think psychologically she will benefit from being discharged in 24 to 48 hours if her oxygen continues to improve she likely will need home oxygen as her history and as a result a walk test prior to discharge is appropriate. I also discussed with her brother who is also requested that tomorrow we will give an update to the sister about her condition prior to discharge. I have placed a walk test for tomorrow and have discussed with nursing staff also 12/23; patient was on 4L of oxygen saturating 95%. Patient has bouts of anxiety and on 0.25 mg of Xanax as needed. We will do home O2 evaluation and possible discharge today. Patient need PT OT evaluation. Will discuss with case management about her concerns stairs in her house. 12/24; patient was on 5 L of oxygen. Patient need PT OT evaluation. Try to call her brother yesterday but he could not waste picker his phone. Patient is deconditioned and very weak. Patient may need rehab after evaluated by PT OT. (1) Acute hypoxic respiratory failure 2/2 Covid 19 PNA pulmonary note reviewed Patient is on 5 L via nasal cannula (2) COVID-19 pneumonia Current Visit: Yes Status: Acute Plan to address problem: ID note reviewed inflammatory markers reviewed-improving Completed Decadron and remdesivir course 3. Severe sepsis procalcitonin results reviewed ID note reviewed Off antibiotics 4) leukocytosis improved (5) Hypertension Current Visit: Yes Status: Acute Plan to address problem: Hydralazine 10 mg IV every 6 hours as needed she has no hx of HTN 6) Transaminitis: results reviewed-improving well cont. to monitor (7) anemia Normocytic type H&H stable (8) Anxiety Continue alprazolam as needed (9) DVT prophylaxis Current Visit: Yes Status: Acute Continue Lovenox, patient is a full code. 12/09/2020 -Patient was on BiPAP with FiO2 of 100%, patient desaturated when she was off BiPAP momentarily. I put her on D5 half-normal saline for maintenance. Titrate oxygen as tolerated. -Pulmonary consulted, ID consulted. -Patient has elevated ALT and AST and is not a candidate for remdesivir. -Patient is on IV antibiotics and procalcitonin level is elevated, ID recommends to continue with IV antibiotics. ID said patient is not a candidate for Actemra because of the infection with elevated procalcitonin level. 12/10; Patient is on BiPAP, on Decadron. Remdesivir discontinued due to elevated liver enzymes. Patient not a candidate for Actemra because patient has elevated procalcitonin level. Continue with IV antibiotics. Prognosis is guarded. 12/11 Patient is A&O,A&O, c/o weakness and feels tired. C/O shortness of breath. requesting stool sofner. She denies f/c/CP/N/abd. pain 12/12: Continue supportive care. Wean oxygen as tolerated. Will obtain pulmonary consult will evaluate for possible Lasix therapy. Noted anemia with hemoglobin of 8.1 will monitor this closely. D-dimer is elevated so is AST and ALT and alk phos. This may preclude use of medications such as remdesivir which has been discontinued in relation to this. Patient remains critically ill. 12/13: Patient showing some improve, still with BiPAP requirements, continue supportive care, continued sterods, Remdesivr per ID, monitor renal function closely and LFT. wean oxygen as tolerated. Prognosis guarded 12/14: Patient seen and examined, she is showing good improvement, down to 10 liters except that she gets anxious. I spoke extensively with the family and updated them on her clinical condition 12/15: Patient continues to show good improvement, weaned down to 5L of oxygen with saturation of 99%. Will transfer to Medical floor and continue current management. 12/16: Patient was doing well this am, on 5 liters and sating 95%, later desated and was placed back on BIPAP. reassurance and counselling provided 12/17: Patient remains on oxygen high flow. I believe that she will be able to be weaned if she if we can control her anxiety. Discussed with nursing staff at bedside also discussed with the patient. Will begin LTAC referral in a.m. 12/18/20 patient is seen and examined. Less shortness of breath. No chest pain. Anxious. Is on high flow oxygen at 40 L with 75% FiO2. We cut down the FiO2 75% from 80%. Wean oxygen. Continue current management. LTAC referral 12/19: Ms. Jarrett continues to show some improvement, She is currently on 70% FIO2 and satting 99%. Discussed with respiratory therapist will try to wean down further. Will transfer to [facility]. Continue to encourage slow deep breaths. Continue to use anxiolytics. Awaiting LTAC approval. Continue to monitor hemoglobin. 12/20: Patient seen and examined, patient needs to continue weaning of oxygen, satting 98% on 70%FIO2. Her anxiety level is improving, can transfer to [facility] 12/21: Patient showing good disposition. Currently FiO2 is down to 50% with saturation of 96% we will continue current management. Continue to encourage prone position. 12/22: Patient seen and examined this morning actually doing well. She is down to 3 L with a sat of 94%. She unfortunately has bouts of anxiety relative to the loss of her parents due to COVID-19 who unfortunately have not been buried and this makes her oxygen demand go up but while she comes down she is able to do well at 3 L. I think psychologically she will benefit from being discharged in 24 to 48 hours if her oxygen continues to improve she likely will need home oxygen as her history and as a result a walk test prior to discharge is appropriate. I also discussed with her brother who is also requested that tomorrow we will give an update to the sister about her condition prior to discharge. I have placed a walk test for tomorrow and have discussed with nursing staff also 12/23; patient was on 4L of oxygen saturating 95%. Patient has bouts of anxiety and on 0.25 mg of Xanax as needed. We will do home O2 evaluation and possible discharge today. Patient need PT OT evaluation. Will discuss with case management about her concerns stairs in her house. 12/24; patient was on 5 L of oxygen. Patient need PT OT evaluation. Try to call her brother yesterday but he could not waste picker his phone. Patient is deconditioned and very weak. Patient may need rehab after evaluated by PT OT. 12/25 patient is alert and oriented and complains of weakness and feeling tired, also complains of coughing spells and feels short of breath with mild effort She denies any fever or chills, denies chest pain, abdominal pain or dysuria. Lab results reviewed Objective - Constitutional Vitals: Vital Signs - 12hr 12/25/20 12/25/20 05:16 07:29 Temperature 98.4 F Pulse Rate 80 Respiratory 18 Rate Blood Pressure 107/79 O2 Sat by Pulse 100 100 Oximetry General appearance: Present: no acute distress, well-nourished - EENT Eyes: PERRL, EOM intact ENT: hearing intact, clear oral mucosa - Neck Neck: supple, normal ROM - Respiratory Respiratory: bilateral: CTA - Cardiovascular Rhythm: regular Heart Sounds: Present: S1 & S2 Extremities: No edema - Gastrointestinal General gastrointestinal: Present: soft, non-tender Rectal Exam: deferred - Genitourinary Female genitourinary: deferred - Integumentary Integumentary: clear, warm - Musculoskeletal Musculoskeletal: strength equal bilaterally - Neurologic Neurologic: no focal deficits - Psychiatric Psychiatric: appropriate mood/affect - Labs CBC & Chem 7: 12/25/20 07:42 12/25/20 07:42 Labs: Abnormal lab results 12/25/20 12/25/20 Range/Units 07:42 07:42 WBC 11.6 H (4.5-11.0) K/mm3 RBC 5.13 H (3.65-5.03) M/mm3 Hgb 9.2 L (10.1-14.3) gm/dl MCV 64 L (79-97) fl MCH 18 L (28-32) pg MCHC 28 L (30-34) % RDW 28.1 H (13.2-15.2) % BUN 19 H (7-17) mg/dL Creatinine 0.4 L (0.6-1.2) mg/dL Glucose 107 H (65-100) mg/dL AST 71 H (5-40) units/L ALT 101 H (7-56) units/L Alkaline Phosphatase 388 H (35-129) units/L Albumin 3.1 L (3.9-5) g/dL
[2020-12-25] MEDS: guaiFENesin/CODEINE 100-10MG ORAL LIQD 5 ML PO SCH ×2 (13:00→20:04)
--- NOTE | 2020-12-25 15:36 | Progress Note ---
Assessment and Plan Acute hypoxemic respiratory failure COVID-19 infection Bilateral pneumonia Elevated serum transaminases Sepsis Anemia that is microcytic Thrombocytosis Lactic acidosis - prn CXR's & ABG's at this point - no new issues otherwise, watch closely but continue care as below; - continue awake proning - continue to wean supplemental oxygen for target O2 sat's > 92% acutely - continue aspiration precautions - bronchodilators with pulmonary hygiene per RT - avoid nephrotoxins, renally dose all medications - avoid benzodiazepine's, reduce the possibility of delirium - complete antiinfective's per ID rec's - prn analgesia per pain score - Maintenance of sleep-wake cycle, avoid delirium - G.I. & VTE prophylaxis - PT/OT/ROM exercises - continue mobility protocols for pressure ulcer prophylaxis - Monitor hemodynamics closely - continue other care per attending / other consultants - discharge planning ongoing concurrently COVID SPECIFIC INTERVENTIONS - Remdesivir as per ID/Pulmonary developed protocols (not a candidate re: LFT's) - continue systemic steroids for severe COVID-19 infection - follow repeat COVID tests results - zinc and vitamin C supplementation - Monitor inflammatory markers per facility protocol - ferritin, Ddimer, CRP - therapeutic anticoagulation per system Protocol based on d-dimer and clinical considerations (VTE prophylaxis) - Continue contact and airborne isolation .... Re-evaluate in am & prn Subjective Date of service: 12/25/20 Principal diagnosis: Ac hypoxemic resp failure; COVID-19 infxn; Pneumonia; Sepsis Interval history: Patient is seen today for: Acute hypoxemic respiratory failure; COVID-19 infection; Bilateral pneumonia; Elevated serum transaminases; Sepsis; Lactic acidosis Seen and examined at bedside; 24hour events reviewed; nursing and respiratory care staff consulted; no adverse overnight events reported to me; resting in bed; remains on supplemental oxygen therapy Objective Vital Signs - 12hr 12/25/20 12/25/20 12/25/20 05:16 07:29 10:20 Temperature 98.4 F Pulse Rate 80 Respiratory 18 Rate Blood Pressure 107/79 O2 Sat by Pulse 100 100 95 Oximetry Constitutional: no acute distress, other (middle aged female without increased respiratory effort at rest) Eyes: non-icteric ENT: oropharynx moist Neck: supple, no lymphadenopathy, no JVD Effort: normal Ascultation: Bilateral: rhonchi (bases posteriorly) Percussion: Bilateral: not dull Cardiovascular: regular rate and rhythm Gastrointestinal: normoactive bowel sounds, soft, non-tender, non-distended Integumentary: normal Extremities: no cyanosis, no edema, pulses normal, no ischemia or petechiae Neurologic: normal mental status, non-focal exam, pupils equal and round, CN II- XII normal, motor strength normal and Psychiatric: mood appropriate, affect normal CBC and BMP: 12/27/20 05:53 12/27/20 05:52 ABG, PT/INR, D-dimer: ABG ABG pH 7.449 (7.320-7.450) 12/10/20 08:45 POC ABG pCO2 36.5 mmHg (32.0-48.0) 12/10/20 08:45 POC ABG pO2 64.5 mmHg (83-108) L 12/10/20 08:45 POC ABG HCO3 24.7 12/10/20 08:45 ABG O2 Saturation 91.0 (0-100) 12/10/20 08:45 PT/INR, D-dimer PT 16.4 Sec. (12.2-14.9) H 12/08/20 00:15 INR 1.27 (0.87-1.13) H 12/08/20 00:15 D-Dimer 660.07 ng/mlDDU (0-234) H 12/15/20 04:37 Abnormal lab findings: Abnormal Labs 12/08/20 12/08/20 12/08/20 00:15 00:15 00:15 WBC 17.0 H RBC 5.40 H Hgb 8.3 L Hct 29.7 L MCV 55 L MCH 16 L MCHC 28 L RDW 25.0 H Plt Count 464 H Towner # (Auto) Seg Neutrophils % Seg Neuts % (Manual) 92.0 H Lymphocytes % (Manual) 1.0 L Nucleated RBC % Seg Neutrophils # Seg Neutrophils # Man 15.6 H Lymphocytes # (Manual) 0.2 L Monocytes # (Manual) PT 16.4 H INR 1.27 H D-Dimer 1129.87 H POC ABG pO2 ABG Hemoglobin ABG Oxyhemoglobin ABG Potassium ABG Chloride ABG Glucose Potassium 3.1 L Chloride BUN Creatinine Glucose 128 H Lactic Acid Calcium 8.3 L Ferritin Total Bilirubin 1.90 H Direct Bilirubin AST 309 H ALT 1384 H Alkaline Phosphatase 440 H Lactate Dehydrogenase C-Reactive Protein Total Protein Albumin 3.2 L Arterial Blood Glucose Coronavirus (PCR) 12/08/20 12/08/20 12/08/20 00:15 00:15 00:15 WBC RBC Hgb Hct MCV MCH MCHC RDW Plt Count [place] # (Auto) Seg Neutrophils % Seg Neuts % (Manual) Lymphocytes % (Manual) Nucleated RBC % Seg Neutrophils # Seg Neutrophils # Man Lymphocytes # (Manual) Monocytes # (Manual) PT INR D-Dimer POC ABG pO2 ABG Hemoglobin ABG Oxyhemoglobin ABG Potassium ABG Chloride ABG Glucose Potassium Chloride BUN Creatinine Glucose Lactic Acid 2.30 H* Calcium Ferritin 289.8 H Total Bilirubin Direct Bilirubin AST ALT Alkaline Phosphatase Lactate Dehydrogenase 608 H C-Reactive Protein 20.70 H Total Protein Albumin Arterial Blood Glucose Coronavirus (PCR) 12/08/20 12/08/20 12/08/20 02:16 09:49 10:30 WBC RBC Hgb Hct MCV MCH MCHC RDW Plt Count [place] # (Auto) Seg Neutrophils % Seg Neuts % (Manual) Lymphocytes % (Manual) Nucleated RBC % Seg Neutrophils # Seg Neutrophils # Man Lymphocytes # (Manual) Monocytes # (Manual) PT INR D-Dimer POC ABG pO2 ABG Hemoglobin ABG Oxyhemoglobin ABG Potassium ABG Chloride ABG Glucose Potassium Chloride BUN Creatinine Glucose Lactic Acid 2.50 H* 2.40 H* Calcium Ferritin Total Bilirubin Direct Bilirubin AST ALT Alkaline Phosphatase Lactate Dehydrogenase C-Reactive Protein Total Protein Albumin Arterial Blood Glucose Coronavirus (PCR) Positive A 12/09/20 12/09/20 12/09/20 04:33 04:33 09:13 WBC 21.0 H RBC 5.12 H Hgb 8.2 L Hct 29.1 L MCV 57 L MCH 16 L MCHC 28 L RDW 24.6 H Plt Count 509 H Towner # (Auto) 1.3 H Seg Neutrophils % 84.3 H Seg Neuts % (Manual) 93.0 H Lymphocytes % (Manual) 2.0 L Nucleated RBC % 2.0 H Seg Neutrophils # 17.8 H Seg Neutrophils # Man 19.5 H Lymphocytes # (Manual) 0.4 L Monocytes # (Manual) PT INR D-Dimer POC ABG pO2 ABG Hemoglobin ABG Oxyhemoglobin ABG Potassium ABG Chloride ABG Glucose Potassium 3.5 L Chloride BUN 30 H 29 H Creatinine Glucose 190 H 129 H Lactic Acid Calcium Ferritin Total Bilirubin Direct Bilirubin AST 276 H ALT 867 H Alkaline Phosphatase 685 H Lactate Dehydrogenase C-Reactive Protein Total Protein Albumin 3.1 L Arterial Blood Glucose Coronavirus (PCR) 12/09/20 12/10/20 12/10/20 19:16 05:04 05:04 WBC RBC Hgb Hct MCV MCH MCHC RDW Plt Count [place] # (Auto) Seg Neutrophils % Seg Neuts % (Manual) Lymphocytes % (Manual) Nucleated RBC % Seg Neutrophils # Seg Neutrophils # Man Lymphocytes # (Manual) Monocytes # (Manual) PT INR D-Dimer POC ABG pO2 ABG Hemoglobin ABG Oxyhemoglobin ABG Potassium ABG Chloride ABG Glucose Potassium 3.4 L Chloride BUN 25 H Creatinine Glucose 184 H Lactic Acid 2.80 H* 3.30 H* Calcium 7.9 L Ferritin Total Bilirubin Direct Bilirubin AST 277 H ALT 722 H Alkaline Phosphatase 773 H Lactate Dehydrogenase C-Reactive Protein Total Protein Albumin 2.9 L Arterial Blood Glucose Coronavirus (PCR) 12/10/20 12/10/20 12/10/20 08:11 08:45 11:15 WBC RBC Hgb Hct MCV MCH MCHC RDW Plt Count [place] # (Auto) Seg Neutrophils % Seg Neuts % (Manual) Lymphocytes % (Manual) Nucleated RBC % Seg Neutrophils # Seg Neutrophils # Man Lymphocytes # (Manual) Monocytes # (Manual) PT INR D-Dimer POC ABG pO2 64.5 L ABG Hemoglobin 7.6 L ABG Oxyhemoglobin 90.2 L ABG Potassium 3.3 L ABG Chloride 108.0 H ABG Glucose 126 H Potassium Chloride BUN Creatinine Glucose Lactic Acid 2.10 H* 2.40 H* Calcium Ferritin Total Bilirubin Direct Bilirubin AST ALT Alkaline Phosphatase Lactate Dehydrogenase C-Reactive Protein Total Protein Albumin Arterial Blood Glucose 126 H Coronavirus (PCR) 12/10/20 12/10/20 12/11/20 13:36 19:13 00:49 WBC RBC Hgb Hct MCV MCH MCHC RDW Plt Count [place] # (Auto) Seg Neutrophils % Seg Neuts % (Manual) Lymphocytes % (Manual) Nucleated RBC % Seg Neutrophils # Seg Neutrophils # Man Lymphocytes # (Manual) Monocytes # (Manual) PT INR D-Dimer POC ABG pO2 ABG Hemoglobin ABG Oxyhemoglobin ABG Potassium ABG Chloride ABG Glucose Potassium 3.4 L Chloride BUN Creatinine Glucose Lactic Acid 3.40 H* 2.30 H* Calcium Ferritin Total Bilirubin Direct Bilirubin AST ALT Alkaline Phosphatase Lactate Dehydrogenase C-Reactive Protein Total Protein Albumin Arterial Blood Glucose Coronavirus (PCR) 12/11/20 12/11/20 12/11/20 05:34 05:34 10:06 WBC RBC Hgb Hct MCV MCH MCHC RDW Plt Count [place] # (Auto) Seg Neutrophils % Seg Neuts % (Manual) Lymphocytes % (Manual) Nucleated RBC % Seg Neutrophils # Seg Neutrophils # Man Lymphocytes # (Manual) Monocytes # (Manual) PT INR D-Dimer POC ABG pO2 ABG Hemoglobin ABG Oxyhemoglobin ABG Potassium ABG Chloride ABG Glucose Potassium Chloride 108.1 H BUN Creatinine 0.4 L Glucose 160 H Lactic Acid 2.30 H* 2.90 H* Calcium 8.3 L Ferritin Total Bilirubin Direct Bilirubin AST 249 H ALT 589 H Alkaline Phosphatase 701 H Lactate Dehydrogenase C-Reactive Protein Total Protein 5.9 L Albumin 3.0 L Arterial Blood Glucose Coronavirus (PCR) 12/11/20 12/11/20 12/11/20 12:38 12:38 12:38 WBC RBC Hgb Hct MCV MCH MCHC RDW Plt Count [place] # (Auto) Seg Neutrophils % Seg Neuts % (Manual) Lymphocytes % (Manual) Nucleated RBC % Seg Neutrophils # Seg Neutrophils # Man Lymphocytes # (Manual) Monocytes # (Manual) PT INR D-Dimer 725.41 H POC ABG pO2 ABG Hemoglobin ABG Oxyhemoglobin ABG Potassium ABG Chloride ABG Glucose Potassium Chloride BUN Creatinine Glucose Lactic Acid 2.50 H* Calcium Ferritin Total Bilirubin Direct Bilirubin AST ALT Alkaline Phosphatase Lactate Dehydrogenase 447 H C-Reactive Protein 2.90 H Total Protein Albumin Arterial Blood Glucose Coronavirus (PCR) 12/12/20 12/12/20 12/12/20 05:01 05:01 05:01 WBC 15.3 H RBC Hgb 8.1 L Hct 28.4 L MCV 57 L MCH 16 L MCHC 29 L RDW 25.0 H Plt Count 809 H [place]er # (Auto) Seg Neutrophils % Seg Neuts % (Manual) 83.0 H Lymphocytes % (Manual) 10.0 L Nucleated RBC % 2.0 H Seg Neutrophils # Seg Neutrophils # Man 12.7 H Lymphocytes # (Manual) Monocytes # (Manual) 1.1 H PT INR D-Dimer 752.84 H POC ABG pO2 ABG Hemoglobin ABG Oxyhemoglobin ABG Potassium ABG Chloride ABG Glucose Potassium Chloride BUN 20 H Creatinine 0.4 L Glucose 120 H Lactic Acid Calcium Ferritin Total Bilirubin Direct Bilirubin AST 121 H ALT 469 H Alkaline Phosphatase 633 H Lactate Dehydrogenase 511 H C-Reactive Protein 3.50 H Total Protein Albumin 3.1 L Arterial Blood Glucose Coronavirus (PCR) 12/13/20 12/13/20 12/14/20 07:25 07:25 13:54 WBC 11.2 H RBC Hgb 7.2 L Hct 24.3 L MCV 57 L MCH 17 L MCHC RDW 25.5 H Plt Count 634 H [place] # (Auto) Seg Neutrophils % Seg Neuts % (Manual) Lymphocytes % (Manual) Nucleated RBC % Seg Neutrophils # Seg Neutrophils # Man Lymphocytes # (Manual) Monocytes # (Manual) PT INR D-Dimer POC ABG pO2 ABG Hemoglobin ABG Oxyhemoglobin ABG Potassium ABG Chloride ABG Glucose Potassium Chloride 107.6 H BUN 25 H Creatinine 0.4 L Glucose 132 H Lactic Acid Calcium Ferritin Total Bilirubin Direct Bilirubin 0.3 H 0.4 H AST 72 H 115 H ALT 295 H 318 H Alkaline Phosphatase 466 H 617 H Lactate Dehydrogenase C-Reactive Protein Total Protein 6.1 L Albumin 2.7 L 3.0 L Arterial Blood Glucose Coronavirus (PCR) 12/14/20 12/14/20 12/15/20 13:54 13:54 04:37 WBC RBC Hgb Hct MCV MCH MCHC RDW Plt Count [place] # (Auto) Seg Neutrophils % Seg Neuts % (Manual) Lymphocytes % (Manual) Nucleated RBC % Seg Neutrophils # Seg Neutrophils # Man Lymphocytes # (Manual) Monocytes # (Manual) PT INR D-Dimer 806.70 H POC ABG pO2 ABG Hemoglobin ABG Oxyhemoglobin ABG Potassium ABG Chloride ABG Glucose Potassium Chloride BUN Creatinine Glucose Lactic Acid Calcium Ferritin Total Bilirubin Direct Bilirubin 0.3 H AST 97 H ALT 281 H Alkaline Phosphatase 553 H Lactate Dehydrogenase C-Reactive Protein 1.70 H Total Protein 6.2 L Albumin 2.8 L Arterial Blood Glucose Coronavirus (PCR) 12/15/20 12/25/20 12/25/20 04:37 07:42 07:42 WBC 11.6 H RBC 5.13 H Hgb 9.2 L Hct MCV 64 L MCH 18 L MCHC 28 L RDW 28.1 H Plt Count [place] # (Auto) Seg Neutrophils % Seg Neuts % (Manual) Lymphocytes % (Manual) Nucleated RBC % Seg Neutrophils # Seg Neutrophils # Man Lymphocytes # (Manual) Monocytes # (Manual) PT INR D-Dimer 660.07 H POC ABG pO2 ABG Hemoglobin ABG Oxyhemoglobin ABG Potassium ABG Chloride ABG Glucose Potassium Chloride BUN 19 H Creatinine 0.4 L Glucose 107 H Lactic Acid Calcium Ferritin Total Bilirubin Direct Bilirubin AST 71 H ALT 101 H Alkaline Phosphatase 388 H Lactate Dehydrogenase C-Reactive Protein Total Protein Albumin 3.1 L Arterial Blood Glucose Coronavirus (PCR) Allied health notes reviewed: nursing
[2020-12-25] MEDS: HYDROmorphone 1 MG/1 ML INJ IV PRN (22:11)
[2020-12-26] MEDS: guaiFENesin/CODEINE 100-10MG ORAL LIQD 5 ML PO SCH ×3 (01:10→18:18)
--- NOTE | 2020-12-26 09:32 | Progress Note ---
Assessment and Plan 50-year-old female with history of hypertension was brought to the emergency room because of shortness of breath, cough, fever, Covid positive. Patient was diagnosed with COVID-19 1 week ago. Since then patient complained of worsening shortness of breath. Patient states she has not seen a physician for this. Patient states she does not take any medicine. Patient states the fever is fluctuating. Patient states it responds well to Tylenol. Patient states her cough is dry. Patient states she has not been vaccinated for COVID-19. Patient complains of chills. Patient denies nausea vomiting. Patient denies diarrhea. Patient denies abdominal pain. Patient denies chest pain. patient's ox saturation was 82%. Patient was found to have acute respiratory failure. Patient WBC 17.0 and chest x-ray shows pneumonia secondary to Covid. Patient was put on BiPAP Patient awake. Patient says cough is better. Patient is still on high flow O2, 7 litres O2 via nasal canula, and O2 saturation running 94%. Recommend slowly taper FIO2 and Keep O2 saturation above 92% Patient afebrile and has mild leukocytosis. Blood pressure 116/77,Pulse 92. Chest xray done 12/07/20 reported here is patchy diffuse ground glass predominant airspace disease and also mild bibasilar consolidation/atelectasis. No pleural effusion. CT of chest done 12/08/20 reported Negative for PTE. Pulmonary findings as above suggesting an atypical etiology versus interstitial edema. Venous doppler studies of legs 12/08/20 No sonographic evidence for DVT in either lower extremity. Patient presently on S/C Lovenox, Famotidine.Albuterol inhaler. Patient finished course of dexamethasone and REMDESIVIR. - Patient Problems (1) Acute respiratory failure Current Visit: Yes Status: Acute Plan to address problem: O2 7 litres via nasal canula. Finished course of dexamethasone and Remdesivir Continue S/C Lovenox. Continue Famotidine. Albuterol inhaler (2) COVID-19 Current Visit: Yes Status: Acute Plan to address problem: Patient is finished course of Dexamethasone and REMDESIVIR (3) Hypertension Current Visit: Yes Status: Acute Plan to address problem: Management as per primary care. (4) Pneumonia Current Visit: Yes Status: Acute Qualifiers: Pneumonia type: due to unspecified organism Laterality: bilateral Lung location: unspecified part of lung Qualified Code(s): J18.9 - Pneumonia, unspecified organism Plan to address problem: Patient is on short course of ceftriaxone and zithromax. Antibiotics as per infectious diseases. Subjective Date of service: 12/26/20 Principal diagnosis: Ac hypoxemic resp failure; COVID-19 infxn; Pneumonia; Sepsis Interval history: 50-year-old female with history of hypertension was brought to the emergency room because of shortness of breath, cough, fever, Covid positive. Patient was diagnosed with COVID-19 1 week ago. Since then patient complained of worsening shortness of breath. Patient states she has not seen a physician for this. Patient states she does not take any medicine. Patient states the fever is fluctuating. Patient states it responds well to Tylenol. Patient states her cough is dry. Patient states she has not been vaccinated for COVID-19. Patient complains of chills. Patient denies nausea vomiting. Patient denies diarrhea. Patient denies abdominal pain. Patient denies chest pain. patient's ox saturation was 82%. Patient was found to have acute respiratory failure. Patient WBC 17.0 and chest x-ray shows pneumonia secondary to Covid. Patient was put on BiPAP Patient awake. Patient says cough is better. Patient is still on high flow O2, 7 litres O2 via nasal canula, and O2 saturation running 94%. Recommend slowly taper FIO2 and Keep O2 saturation above 92% Patient afebrile and has mild leukocytosis. Blood pressure 116/77,Pulse 92. Chest xray done 12/07/20 reported here is patchy diffuse ground glass predominant airspace disease and also mild bibasilar consolidation/atelectasis. No pleural effusion. CT of chest done 12/08/20 reported Negative for PTE. Pulmonary findings as above suggesting an atypical etiology versus interstitial edema. Venous doppler studies of legs 12/08/20 No sonographic evidence for DVT in either lower extremity. Chest xray done 12/22/20 reported Stable appearance of the chest. Moderate pulmonary airspace disease persists. Patient presently on S/C Lovenox, Famotidine.Albuterol inhaler. Patient finished course of dexamethasone and REMDESIVIR. Objective Vital Signs - 12hr 12/25/20 12/25/20 12/26/20 22:00 22:01 06:00 Temperature 99.3 F 98.1 F Pulse Rate 99 H 82 Respiratory 20 18 18 Rate Blood Pressure 110/74 110/79 O2 Sat by Pulse 92 100 99 Oximetry 12/26/20 09:24 Temperature Pulse Rate Respiratory Rate Blood Pressure O2 Sat by Pulse 96 Oximetry Constitutional: no acute distress, alert, other (middle aged female without increased respiratory effort at rest) Eyes: non-icteric ENT: oropharynx moist Neck: supple, no lymphadenopathy, no JVD Effort: normal Ascultation: Bilateral: rhonchi (bases posteriorly) Percussion: Bilateral: not dull Cardiovascular: regular rate and rhythm Gastrointestinal: normoactive bowel sounds, soft, non-tender, non-distended Integumentary: normal Extremities: no cyanosis, no edema, pulses normal, no ischemia or petechiae Neurologic: normal mental status, non-focal exam, pupils equal and round, CN II- XII normal, motor strength normal and Psychiatric: mood appropriate, affect normal CBC and BMP: 12/27/20 05:53 12/27/20 05:52 ABG, PT/INR, D-dimer: ABG ABG pH 7.449 (7.320-7.450) 12/10/20 08:45 POC ABG pCO2 36.5 mmHg (32.0-48.0) 12/10/20 08:45 POC ABG pO2 64.5 mmHg (83-108) L 12/10/20 08:45 POC ABG HCO3 24.7 12/10/20 08:45 ABG O2 Saturation 91.0 (0-100) 12/10/20 08:45 PT/INR, D-dimer PT 16.4 Sec. (12.2-14.9) H 12/08/20 00:15 INR 1.27 (0.87-1.13) H 12/08/20 00:15 D-Dimer 660.07 ng/mlDDU (0-234) H 12/15/20 04:37 Abnormal lab findings: Abnormal Labs 12/08/20 12/08/20 12/08/20 00:15 00:15 00:15 WBC 17.0 H RBC 5.40 H Hgb 8.3 L Hct 29.7 L MCV 55 L MCH 16 L MCHC 28 L RDW 25.0 H Plt Count 464 H [place] # (Auto) Seg Neutrophils % Seg Neuts % (Manual) 92.0 H Lymphocytes % (Manual) 1.0 L Nucleated RBC % Seg Neutrophils # Seg Neutrophils # Man 15.6 H Lymphocytes # (Manual) 0.2 L Monocytes # (Manual) PT 16.4 H INR 1.27 H D-Dimer 1129.87 H POC ABG pO2 ABG Hemoglobin ABG Oxyhemoglobin ABG Potassium ABG Chloride ABG Glucose Potassium 3.1 L Chloride BUN Creatinine Glucose 128 H Lactic Acid Calcium 8.3 L Ferritin Total Bilirubin 1.90 H Direct Bilirubin AST 309 H ALT 1384 H Alkaline Phosphatase 440 H Lactate Dehydrogenase C-Reactive Protein Total Protein Albumin 3.2 L Arterial Blood Glucose Coronavirus (PCR) 12/08/20 12/08/20 12/08/20 00:15 00:15 00:15 WBC RBC Hgb Hct MCV MCH MCHC RDW Plt Count [place] # (Auto) Seg Neutrophils % Seg Neuts % (Manual) Lymphocytes % (Manual) Nucleated RBC % Seg Neutrophils # Seg Neutrophils # Man Lymphocytes # (Manual) Monocytes # (Manual) PT INR D-Dimer POC ABG pO2 ABG Hemoglobin ABG Oxyhemoglobin ABG Potassium ABG Chloride ABG Glucose Potassium Chloride BUN Creatinine Glucose Lactic Acid 2.30 H* Calcium Ferritin 289.8 H Total Bilirubin Direct Bilirubin AST ALT Alkaline Phosphatase Lactate Dehydrogenase 608 H C-Reactive Protein 20.70 H Total Protein Albumin Arterial Blood Glucose Coronavirus (PCR) 12/08/20 12/08/20 12/08/20 02:16 09:49 10:30 WBC RBC Hgb Hct MCV MCH MCHC RDW Plt Count [place] # (Auto) Seg Neutrophils % Seg Neuts % (Manual) Lymphocytes % (Manual) Nucleated RBC % Seg Neutrophils # Seg Neutrophils # Man Lymphocytes # (Manual) Monocytes # (Manual) PT INR D-Dimer POC ABG pO2 ABG Hemoglobin ABG Oxyhemoglobin ABG Potassium ABG Chloride ABG Glucose Potassium Chloride BUN Creatinine Glucose Lactic Acid 2.50 H* 2.40 H* Calcium Ferritin Total Bilirubin Direct Bilirubin AST ALT Alkaline Phosphatase Lactate Dehydrogenase C-Reactive Protein Total Protein Albumin Arterial Blood Glucose Coronavirus (PCR) Positive A 12/09/20 12/09/20 12/09/20 04:33 04:33 09:13 WBC 21.0 H RBC 5.12 H Hgb 8.2 L Hct 29.1 L MCV 57 L MCH 16 L MCHC 28 L RDW 24.6 H Plt Count 509 H [place] # (Auto) 1.3 H Seg Neutrophils % 84.3 H Seg Neuts % (Manual) 93.0 H Lymphocytes % (Manual) 2.0 L Nucleated RBC % 2.0 H Seg Neutrophils # 17.8 H Seg Neutrophils # Man 19.5 H Lymphocytes # (Manual) 0.4 L Monocytes # (Manual) PT INR D-Dimer POC ABG pO2 ABG Hemoglobin ABG Oxyhemoglobin ABG Potassium ABG Chloride ABG Glucose Potassium 3.5 L Chloride BUN 30 H 29 H Creatinine Glucose 190 H 129 H Lactic Acid Calcium Ferritin Total Bilirubin Direct Bilirubin AST 276 H ALT 867 H Alkaline Phosphatase 685 H Lactate Dehydrogenase C-Reactive Protein Total Protein Albumin 3.1 L Arterial Blood Glucose Coronavirus (PCR) 12/09/20 12/10/20 12/10/20 19:16 05:04 05:04 WBC RBC Hgb Hct MCV MCH MCHC RDW Plt Count [place] # (Auto) Seg Neutrophils % Seg Neuts % (Manual) Lymphocytes % (Manual) Nucleated RBC % Seg Neutrophils # Seg Neutrophils # Man Lymphocytes # (Manual) Monocytes # (Manual) PT INR D-Dimer POC ABG pO2 ABG Hemoglobin ABG Oxyhemoglobin ABG Potassium ABG Chloride ABG Glucose Potassium 3.4 L Chloride BUN 25 H Creatinine Glucose 184 H Lactic Acid 2.80 H* 3.30 H* Calcium 7.9 L Ferritin Total Bilirubin Direct Bilirubin AST 277 H ALT 722 H Alkaline Phosphatase 773 H Lactate Dehydrogenase C-Reactive Protein Total Protein Albumin 2.9 L Arterial Blood Glucose Coronavirus (PCR) 12/10/20 12/10/20 12/10/20 08:11 08:45 11:15 WBC RBC Hgb Hct MCV MCH MCHC RDW Plt Count [place] # (Auto) Seg Neutrophils % Seg Neuts % (Manual) Lymphocytes % (Manual) Nucleated RBC % Seg Neutrophils # Seg Neutrophils # Man Lymphocytes # (Manual) Monocytes # (Manual) PT INR D-Dimer POC ABG pO2 64.5 L ABG Hemoglobin 7.6 L ABG Oxyhemoglobin 90.2 L ABG Potassium 3.3 L ABG Chloride 108.0 H ABG Glucose 126 H Potassium Chloride BUN Creatinine Glucose Lactic Acid 2.10 H* 2.40 H* Calcium Ferritin Total Bilirubin Direct Bilirubin AST ALT Alkaline Phosphatase Lactate Dehydrogenase C-Reactive Protein Total Protein Albumin Arterial Blood Glucose 126 H Coronavirus (PCR) 08/14/21 08/14/21 08/15/21 13:36 19:13 00:49 WBC RBC Hgb Hct MCV MCH MCHC RDW Plt Count [place] # (Auto) Seg Neutrophils % Seg Neuts % (Manual) Lymphocytes % (Manual) Nucleated RBC % Seg Neutrophils # Seg Neutrophils # Man Lymphocytes # (Manual) Monocytes # (Manual) PT INR D-Dimer POC ABG pO2 ABG Hemoglobin ABG Oxyhemoglobin ABG Potassium ABG Chloride ABG Glucose Potassium 3.4 L Chloride BUN Creatinine Glucose Lactic Acid 3.40 H* 2.30 H* Calcium Ferritin Total Bilirubin Direct Bilirubin AST ALT Alkaline Phosphatase Lactate Dehydrogenase C-Reactive Protein Total Protein Albumin Arterial Blood Glucose Coronavirus (PCR) 12/11/20 12/11/20 12/11/20 05:34 05:34 10:06 WBC RBC Hgb Hct MCV MCH MCHC RDW Plt Count [place] # (Auto) Seg Neutrophils % Seg Neuts % (Manual) Lymphocytes % (Manual) Nucleated RBC % Seg Neutrophils # Seg Neutrophils # Man Lymphocytes # (Manual) Monocytes # (Manual) PT INR D-Dimer POC ABG pO2 ABG Hemoglobin ABG Oxyhemoglobin ABG Potassium ABG Chloride ABG Glucose Potassium Chloride 108.1 H BUN Creatinine 0.4 L Glucose 160 H Lactic Acid 2.30 H* 2.90 H* Calcium 8.3 L Ferritin Total Bilirubin Direct Bilirubin AST 249 H ALT 589 H Alkaline Phosphatase 701 H Lactate Dehydrogenase C-Reactive Protein Total Protein 5.9 L Albumin 3.0 L Arterial Blood Glucose Coronavirus (PCR) 12/11/20 12/11/20 12/11/20 12:38 12:38 12:38 WBC RBC Hgb Hct MCV MCH MCHC RDW Plt Count [place] # (Auto) Seg Neutrophils % Seg Neuts % (Manual) Lymphocytes % (Manual) Nucleated RBC % Seg Neutrophils # Seg Neutrophils # Man Lymphocytes # (Manual) Monocytes # (Manual) PT INR D-Dimer 725.41 H POC ABG pO2 ABG Hemoglobin ABG Oxyhemoglobin ABG Potassium ABG Chloride ABG Glucose Potassium Chloride BUN Creatinine Glucose Lactic Acid 2.50 H* Calcium Ferritin Total Bilirubin Direct Bilirubin AST ALT Alkaline Phosphatase Lactate Dehydrogenase 447 H C-Reactive Protein 2.90 H Total Protein Albumin Arterial Blood Glucose Coronavirus (PCR) 12/12/20 12/12/20 12/12/20 05:01 05:01 05:01 WBC 15.3 H RBC Hgb 8.1 L Hct 28.4 L MCV 57 L MCH 16 L MCHC 29 L RDW 25.0 H Plt Count 809 H [place] # (Auto) Seg Neutrophils % Seg Neuts % (Manual) 83.0 H Lymphocytes % (Manual) 10.0 L Nucleated RBC % 2.0 H Seg Neutrophils # Seg Neutrophils # Man 12.7 H Lymphocytes # (Manual) Monocytes # (Manual) 1.1 H PT INR D-Dimer 752.84 H POC ABG pO2 ABG Hemoglobin ABG Oxyhemoglobin ABG Potassium ABG Chloride ABG Glucose Potassium Chloride BUN 20 H Creatinine 0.4 L Glucose 120 H Lactic Acid Calcium Ferritin Total Bilirubin Direct Bilirubin AST 121 H ALT 469 H Alkaline Phosphatase 633 H Lactate Dehydrogenase 511 H C-Reactive Protein 3.50 H Total Protein Albumin 3.1 L Arterial Blood Glucose Coronavirus (PCR) 12/13/20 12/13/20 12/14/20 07:25 07:25 13:54 WBC 11.2 H RBC Hgb 7.2 L Hct 24.3 L MCV 57 L MCH 17 L MCHC RDW 25.5 H Plt Count 634 H [place] # (Auto) Seg Neutrophils % Seg Neuts % (Manual) Lymphocytes % (Manual) Nucleated RBC % Seg Neutrophils # Seg Neutrophils # Man Lymphocytes # (Manual) Monocytes # (Manual) PT INR D-Dimer POC ABG pO2 ABG Hemoglobin ABG Oxyhemoglobin ABG Potassium ABG Chloride ABG Glucose Potassium Chloride 107.6 H BUN 25 H Creatinine 0.4 L Glucose 132 H Lactic Acid Calcium Ferritin Total Bilirubin Direct Bilirubin 0.3 H 0.4 H AST 72 H 115 H ALT 295 H 318 H Alkaline Phosphatase 466 H 617 H Lactate Dehydrogenase C-Reactive Protein Total Protein 6.1 L Albumin 2.7 L 3.0 L Arterial Blood Glucose Coronavirus (PCR) 12/14/20 12/14/20 12/15/20 13:54 13:54 04:37 WBC RBC Hgb Hct MCV MCH MCHC RDW Plt Count [place] # (Auto) Seg Neutrophils % Seg Neuts % (Manual) Lymphocytes % (Manual) Nucleated RBC % Seg Neutrophils # Seg Neutrophils # Man Lymphocytes # (Manual) Monocytes # (Manual) PT INR D-Dimer 806.70 H POC ABG pO2 ABG Hemoglobin ABG Oxyhemoglobin ABG Potassium ABG Chloride ABG Glucose Potassium Chloride BUN Creatinine Glucose Lactic Acid Calcium Ferritin Total Bilirubin Direct Bilirubin 0.3 H AST 97 H ALT 281 H Alkaline Phosphatase 553 H Lactate Dehydrogenase C-Reactive Protein 1.70 H Total Protein 6.2 L Albumin 2.8 L Arterial Blood Glucose Coronavirus (PCR) 12/15/20 12/25/20 12/25/20 04:37 07:42 07:42 WBC 11.6 H RBC 5.13 H Hgb 9.2 L Hct MCV 64 L MCH 18 L MCHC 28 L RDW 28.1 H Plt Count [place] # (Auto) Seg Neutrophils % Seg Neuts % (Manual) Lymphocytes % (Manual) Nucleated RBC % Seg Neutrophils # Seg Neutrophils # Man Lymphocytes # (Manual) Monocytes # (Manual) PT INR D-Dimer 660.07 H POC ABG pO2 ABG Hemoglobin ABG Oxyhemoglobin ABG Potassium ABG Chloride ABG Glucose Potassium Chloride BUN 19 H Creatinine 0.4 L Glucose 107 H Lactic Acid Calcium Ferritin Total Bilirubin Direct Bilirubin AST 71 H ALT 101 H Alkaline Phosphatase 388 H Lactate Dehydrogenase C-Reactive Protein Total Protein Albumin 3.1 L Arterial Blood Glucose Coronavirus (PCR) Chest x-ray: report reviewed, image reviewed Additional Studies: XR chest 1V ap 12/22/20 INDICATION / CLINICAL INFORMATION: Follow up on pneumonia.. COMPARISON: [id number] FINDINGS: SUPPORT DEVICES: None. HEART /PULMONARY VASCULATURE: No significant abnormality. LUNGS / PLEURA: Diffuse pulmonary airspace opacities appear unchanged from prior study, given diminished lung volumes. No pneumothorax. ADDITIONAL FINDINGS: No significant additional findings. IMPRESSION: Stable appearance of the chest. Moderate pulmonary airspace disease persists. Allied health notes reviewed: nursing
[2020-12-26] MEDS: ENOXAPARIN 100 MG/1 ML INJ SUB-Q SCH (11:16)
[2020-12-26] MEDS: CHOLECALCIFEROL (VIT D3) 1000 UNIT (25 mcg) TAB PO SCH (11:17)
[2020-12-26] MEDS: FAMOTIDINE 20 MG TAB PO SCH ×2 (11:17→21:43)
[2020-12-26] MEDS: ZINC SULFATE 220 MG CAP PO SCH (11:17)
[2020-12-26] MEDS: ASCORBIC ACID 500 MG TAB PO SCH ×2 (11:17→21:43)
[2020-12-26] MEDS: ALPRAZolam 0.25 MG TAB PO PRN (11:20)
[2020-12-26] MEDS: LISINOPRIL 20 MG TAB PO SCH (12:45)
--- NOTE | 2020-12-26 13:36 | Progress Note ---
Subjective Date of service: 12/26/20 Principal diagnosis: Ac hypoxemic resp failure; COVID-19 infxn; Pneumonia; Sepsis Interval history: 50-year-old female with history of hypertension was brought to the emergency room because of shortness of breath, cough, fever, Covid positive. Patient was diagnosed with COVID-19 1 week ago. Since then patient complained of worsening shortness of breath. Patient states she has not seen a physician for this. Patient states she does not take any medicine. Patient states the fever is fluctuating. Patient states it responds well to Tylenol. Patient states her cough is dry. Patient states she has not been vaccinated for COVID-19. Patient complains of chills. Patient denies nausea vomiting. Patient denies diarrhea. Patient denies abdominal pain. Patient denies chest pain. Patient's ox saturation was 82%. Patient was found to have acute respiratory failure. Patient WBC 17.0 and chest x-ray shows pneumonia secondary to Covid. Patient was put on BiPAP 12/09/2020 -Patient was on BiPAP with FiO2 of 100%, patient desaturated when she was off BiPAP momentarily. I put her on D5 half-normal saline for maintenance. Titrate oxygen as tolerated. -Pulmonary consulted, ID consulted. -Patient has elevated ALT and AST and is not a candidate for remdesivir. -Patient is on IV antibiotics and procalcitonin level is elevated, ID recommends to continue with IV antibiotics. ID said patient is not a candidate for Actemra because of the infection with elevated procalcitonin level. 12/10; Patient is on BiPAP, on Decadron. Remdesivir discontinued due to elevated liver enzymes. Patient not a candidate for Actemra because patient has elevated procalcitonin level. Continue with IV antibiotics. Prognosis is guarded. 12/11 Patient is A&O,A&O, c/o weakness and feels tired. C/O shortness of breath. requesting stool sofner. She denies f/c/CP/N/abd. pain 12/12: Continue supportive care. Wean oxygen as tolerated. Will obtain pulmonary consult will evaluate for possible Lasix therapy. Noted anemia with hemoglobin of 8.1 will monitor this closely. D-dimer is elevated so is AST and ALT and alk phos. This may preclude use of medications such as remdesivir which has been discontinued in relation to this. Patient remains critically ill. 12/13: Patient showing some improve, still with BiPAP requirements, continue supportive care, continued sterods, Remdesivr per ID, monitor renal function closely and LFT. wean oxygen as tolerated. Prognosis guarded 12/14: Patient seen and examined, she is showing good improvement, down to 10 liters except that she gets anxious. I spoke extensively with the family and updated them on her clinical condition 12/15: Patient continues to show good improvement, weaned down to 5L of oxygen with saturation of 99%. Will transfer to Medical floor and continue current management. 12/16: Patient was doing well this am, on 5 liters and sating 95%, later desated and was placed back on BIPAP. reassurance and counselling provided 12/17: Patient remains on oxygen high flow. I believe that she will be able to be weaned if she if we can control her anxiety. Discussed with nursing staff at bedside also discussed with the patient. Will begin LTAC referral in a.m. 12/18/20 patient is seen and examined. Less shortness of breath. No chest pain. Anxious. Is on high flow oxygen at 40 L with 75% FiO2. We cut down the FiO2 75% from 80%. Wean oxygen. Continue current management. LTAC referral 12/19: Ms. Jarrett continues to show some improvement, She is currently on 70% FIO2 and satting 99%. Discussed with respiratory therapist will try to wean down further. Will transfer to [facility]. Continue to encourage slow deep breaths. Continue to use anxiolytics. Awaiting LTAC approval. Continue to monitor hemoglobin. 12/20: Patient seen and examined, patient needs to continue weaning of oxygen, satting 98% on 70%FIO2. Her anxiety level is improving, can transfer to [facility] 12/21: Patient showing good disposition. Currently FiO2 is down to 50% with saturation of 96% we will continue current management. Continue to encourage prone position. 12/22: Patient seen and examined this morning actually doing well. She is down to 3 L with a sat of 94%. She unfortunately has bouts of anxiety relative to the loss of her parents due to COVID-19 who unfortunately have not been buried and this makes her oxygen demand go up but while she comes down she is able to do well at 3 L. I think psychologically she will benefit from being discharged in 24 to 48 hours if her oxygen continues to improve she likely will need home oxygen as her history and as a result a walk test prior to discharge is appropriate. I also discussed with her brother who is also requested that tomorrow we will give an update to the sister about her condition prior to discharge. I have placed a walk test for tomorrow and have discussed with nursing staff also 12/23; patient was on 4L of oxygen saturating 95%. Patient has bouts of anxiety and on 0.25 mg of Xanax as needed. We will do home O2 evaluation and possible discharge today. Patient need PT OT evaluation. Will discuss with case management about her concerns stairs in her house. 12/24; patient was on 5 L of oxygen. Patient need PT OT evaluation. Try to call her brother yesterday but he could not last picker his phone. Patient is deconditioned and very weak. Patient may need rehab after evaluated by PT OT. (1) Acute hypoxic respiratory failure 2/2 Covid 19 PNA pulmonary note reviewed Patient is on 5 L via nasal cannula (2) COVID-19 pneumonia Current Visit: Yes Status: Acute Plan to address problem: ID note reviewed inflammatory markers reviewed-improving Completed Decadron and remdesivir course 3. Severe sepsis procalcitonin results reviewed ID note reviewed Off antibiotics 4) leukocytosis improved (5) Hypertension Current Visit: Yes Status: Acute Plan to address problem: Hydralazine 10 mg IV every 6 hours as needed she has no hx of HTN 6) Transaminitis: results reviewed-improving well cont. to monitor (7) anemia Normocytic type H&H stable (8) Anxiety Continue alprazolam as needed (9) DVT prophylaxis Current Visit: Yes Status: Acute Continue Lovenox, patient is a full code. 12/09/2020 -Patient was on BiPAP with FiO2 of 100%, patient desaturated when she was off BiPAP momentarily. I put her on D5 half-normal saline for maintenance. Titrate oxygen as tolerated. -Pulmonary consulted, ID consulted. -Patient has elevated ALT and AST and is not a candidate for remdesivir. -Patient is on IV antibiotics and procalcitonin level is elevated, ID recommends to continue with IV antibiotics. ID said patient is not a candidate for Actemra because of the infection with elevated procalcitonin level. 12/10; Patient is on BiPAP, on Decadron. Remdesivir discontinued due to elevated liver enzymes. Patient not a candidate for Actemra because patient has elevated procalcitonin level. Continue with IV antibiotics. Prognosis is guarded. 12/11 Patient is A&O,A&O, c/o weakness and feels tired. C/O shortness of breath. requesting stool sofner. She denies f/c/CP/N/abd. pain 12/12: Continue supportive care. Wean oxygen as tolerated. Will obtain pulmonary consult will evaluate for possible Lasix therapy. Noted anemia with hemoglobin of 8.1 will monitor this closely. D-dimer is elevated so is AST and ALT and alk phos. This may preclude use of medications such as remdesivir which has been discontinued in relation to this. Patient remains critically ill. 12/13: Patient showing some improve, still with BiPAP requirements, continue supportive care, continued sterods, Remdesivr per ID, monitor renal function closely and LFT. wean oxygen as tolerated. Prognosis guarded 12/14: Patient seen and examined, she is showing good improvement, down to 10 liters except that she gets anxious. I spoke extensively with the family and updated them on her clinical condition 12/15: Patient continues to show good improvement, weaned down to 5L of oxygen with saturation of 99%. Will transfer to Medical floor and continue current management. 12/16: Patient was doing well this am, on 5 liters and sating 95%, later desated and was placed back on BIPAP. reassurance and counselling provided 12/17: Patient remains on oxygen high flow. I believe that she will be able to be weaned if she if we can control her anxiety. Discussed with nursing staff at bedside also discussed with the patient. Will begin LTAC referral in a.m. 12/18/20 patient is seen and examined. Less shortness of breath. No chest pain. Anxious. Is on high flow oxygen at 40 L with 75% FiO2. We cut down the FiO2 75% from 80%. Wean oxygen. Continue current management. LTAC referral 12/19: Ms. Jarrett continues to show some improvement, She is currently on 70% FIO2 and satting 99%. Discussed with respiratory therapist will try to wean down further. Will transfer to [facility]. Continue to encourage slow deep breaths. Continue to use anxiolytics. Awaiting LTAC approval. Continue to monitor hemoglobin. 12/20: Patient seen and examined, patient needs to continue weaning of oxygen, satting 98% on 70%FIO2. Her anxiety level is improving, can transfer to [facility] 12/21: Patient showing good disposition. Currently FiO2 is down to 50% with saturation of 96% we will continue current management. Continue to encourage prone position. 12/22: Patient seen and examined this morning actually doing well. She is down to 3 L with a sat of 94%. She unfortunately has bouts of anxiety relative to the loss of her parents due to COVID-19 who unfortunately have not been buried and this makes her oxygen demand go up but while she comes down she is able to do well at 3 L. I think psychologically she will benefit from being discharged in 24 to 48 hours if her oxygen continues to improve she likely will need home oxygen as her history and as a result a walk test prior to discharge is appropriate. I also discussed with her brother who is also requested that tomorrow we will give an update to the sister about her condition prior to discharge. I have placed a walk test for tomorrow and have discussed with nursing staff also 12/23; patient was on 4L of oxygen saturating 95%. Patient has bouts of anxiety and on 0.25 mg of Xanax as needed. We will do home O2 evaluation and possible discharge today. Patient need PT OT evaluation. Will discuss with case management about her concerns stairs in her house. 12/24; patient was on 5 L of oxygen. Patient need PT OT evaluation. Try to call her brother yesterday but he could not last picker his phone. Patient is deconditioned and very weak. Patient may need rehab after evaluated by PT OT. 12/25 patient is alert and oriented and complains of weakness and feeling tired, also complains of coughing spells and feels short of breath with mild effort She denies any fever or chills, denies chest pain, abdominal pain or dysuria. Lab results reviewed 12/26 patient is alert and oriented and on 5 L oxygen via nasal cannula. Complains of cough and shortness of breath with minimal effort and desaturates with mild effort. Also complains of anxiety and depression lab results [facility] Pul[facility] note reviewed Objective - Constitutional Vitals: Vital Signs - 12hr 0812/26/20 12/26/20 06:00 09:24 12:45 Temperature 98.1 F Pulse Rate 82 92 H Respiratory 18 Rate Blood Pressure 110/79 116/77 Blood Pressure [Left] O2 Sat by Pulse 99 96 Oximetry 12/26/20 12:47 Temperature 98.4 F Pulse Rate 92 H Respiratory 16 Rate Blood Pressure Blood Pressure 116/77 [Left] O2 Sat by Pulse 95 Oximetry General appearance: Present: no acute distress - EENT Eyes: PERRL, EOM intact ENT: hearing intact - Neck Neck: supple, normal ROM - Respiratory Respiratory effort: normal Respiratory: bilateral: CTA - Cardiovascular Rhythm: regular Heart Sounds: Present: S1 & S2 Extremities: No edema - Gastrointestinal General gastrointestinal: Present: soft, non-tender Rectal Exam: deferred - Integumentary Integumentary: clear - Musculoskeletal Musculoskeletal: strength equal bilaterally - Neurologic Neurologic: no focal deficits - Psychiatric Psychiatric: appropriate mood/affect - Labs CBC & Chem 7: 12/25/20 07:42 12/25/20 07:42
[2020-12-26] MEDS: oxyCODONE /ACETAMINOPHEN 5-325MG TAB PO PRN (18:18)
[2020-12-26] MEDS: ENOXAPARIN 80 MG/0.8 ML INJ SUB-Q SCH (21:43)
[2020-12-27] MEDS: guaiFENesin/CODEINE 100-10MG ORAL LIQD 5 ML PO SCH ×5 (00:58→22:00)
[2020-12-27 06:16] LABS: Mean Corpuscular HGB Conc 29 % (30-34); Platelet Count 176 K/mm3 (140-440)
[2020-12-27 06:20] LABS: Hematocrit 29.1 % (30.3-42.9); Hemoglobin 8.3 gm/dl (10.1-14.3); Mean Corpuscular Volume 62 fl (79-97); Red Cell Distribution Width 28.2 % (13.2-15.2)
[2020-12-27 06:37] LABS: Alanine Aminotransferase 80 units/L (7-56); Albumin 3.2 g/dL (3.9-5); Blood Urea Nitrogen 13 mg/dL (7-17); Calcium 9.3 mg/dL (8.4-10.2); Hemolysis Index 0
[2020-12-27 06:47] LABS: BUN/Creatinine Ratio 43
[2020-12-27] MEDS: CHOLECALCIFEROL (VIT D3) 1000 UNIT (25 mcg) TAB PO SCH (10:10)
[2020-12-27] MEDS: FAMOTIDINE 20 MG TAB PO SCH ×2 (10:10→21:55)
[2020-12-27] MEDS: LISINOPRIL 20 MG TAB PO SCH (10:10)
[2020-12-27] MEDS: ZINC SULFATE 220 MG CAP PO SCH (10:10)
[2020-12-27] MEDS: ENOXAPARIN 80 MG/0.8 ML INJ SUB-Q SCH ×2 (10:10→21:55)
[2020-12-27] MEDS: ASCORBIC ACID 500 MG TAB PO SCH ×2 (10:10→21:55)
--- NOTE | 2020-12-27 10:18 | Discharge Summary ---
Providers - Providers Date of Admission: 12/08/20 03:11 Attending physician: PARIS MARSH MD 12/08/20 05:31 Consult to Physician [CONS] Routine Comment: Consulting Provider: PARVEEN JIMENEZ Physician Instructions: Reason For Exam: covid Consult to Physician [CONS] Routine Comment: Consulting Provider: TATIANA GARCIA Physician Instructions: Reason For Exam: covid 12/23/20 10:12 Physical Therapy Evaluation and Treat [CONS] Routine Comment: Reason For Exam: generalized weakness 12/23/20 10:13 Occupational Therapy Evaluate and Treat [CONS] Routine Comment: Reason For Exam: generalized weakness Primary care physician: [employer] Hospitalization Reason for admission: Shortness of breath Condition: Stable Hospital course: 50-year-old female with history of hypertension was brought to the emergency room because of shortness of breath, cough, fever, Covid positive. Patient was diagnosed with COVID-19 1 week ago. Since then patient complained of worsening shortness of breath. Patient states she has not seen a physician for this. Patient states she does not take any medicine. Patient states the fever is fluctuating. Patient states it responds well to Tylenol. Patient states her cough is dry. Patient states she has not been vaccinated for COVID-19. Patient complains of chills. Patient denies nausea vomiting. Patient denies diarrhea. Patient denies abdominal pain. Patient denies chest pain. Patient's ox saturation was 82%. Patient was found to have acute respiratory failure. Patient WBC 17.0 and chest x-ray shows pneumonia secondary to Covid. Patient was put on BiPAP 12/09/2020 -Patient was on BiPAP with FiO2 of 100%, patient desaturated when she was off BiPAP momentarily. I put her on D5 half-normal saline for maintenance. Titrate oxygen as tolerated. -Pulmonary consulted, ID consulted. -Patient has elevated ALT and AST and is not a candidate for remdesivir. -Patient is on IV antibiotics and procalcitonin level is elevated, ID recommends to continue with IV antibiotics. ID said patient is not a candidate for Actemra because of the infection with elevated procalcitonin level. 12/10; Patient is on BiPAP, on Decadron. Remdesivir discontinued due to elevated liver enzymes. Patient not a candidate for Actemra because patient has elevated procalcitonin level. Continue with IV antibiotics. Prognosis is guarded. 12/11 Patient is A&O,A&O, c/o weakness and feels tired. C/O shortness of breath. requesting stool sofner. She denies f/c/CP/N/abd. pain 12/12: Continue supportive care. Wean oxygen as tolerated. Will obtain pulmonary consult will evaluate for possible Lasix therapy. Noted anemia with hemoglobin of 8.1 will monitor this closely. D-dimer is elevated so is AST and ALT and alk phos. This may preclude use of medications such as remdesivir which has been discontinued in relation to this. Patient remains critically ill. 12/13: Patient showing some improve, still with BiPAP requirements, continue supportive care, continued sterods, Remdesivr per ID, monitor renal function closely and LFT. wean oxygen as tolerated. Prognosis guarded 12/14: Patient seen and examined, she is showing good improvement, down to 10 liters except that she gets anxious. I spoke extensively with the family and updated them on her clinical condition 12/15: Patient continues to show good improvement, weaned down to 5L of oxygen with saturation of 99%. Will transfer to Medical floor and continue current management. 12/16: Patient was doing well this am, on 5 liters and sating 95%, later desated and was placed back on BIPAP. reassurance and counselling provided 12/17: Patient remains on oxygen high flow. I believe that she will be able to be weaned if she if we can control her anxiety. Discussed with nursing staff at bedside also discussed with the patient. Will begin LTAC referral in a.m. 12/18/20 patient is seen and examined. Less shortness of breath. No chest pain. Anxious. Is on high flow oxygen at 40 L with 75% FiO2. We cut down the FiO2 75% from 80%. Wean oxygen. Continue current management. LTAC referral 12/19: Ms. Jarrett continues to show some improvement, She is currently on 70% FIO2 and satting 99%. Discussed with respiratory therapist will try to wean down further. Will transfer to [facility]. Continue to encourage slow deep breaths. Continue to use anxiolytics. Awaiting LTAC approval. Continue to monitor hemoglobin. 12/20: Patient seen and examined, patient needs to continue weaning of oxygen, satting 98% on 70%FIO2. Her anxiety level is improving, can transfer to [facility] 12/21: Patient showing good disposition. Currently FiO2 is down to 50% with saturation of 96% we will continue current management. Continue to encourage prone position. 12/22: Patient seen and examined this morning actually doing well. She is down to 3 L with a sat of 94%. She unfortunately has bouts of anxiety relative to the loss of her parents due to COVID-19 who unfortunately have not been buried and this makes her oxygen demand go up but while she comes down she is able to do well at 3 L. I think psychologically she will benefit from being discharged in 24 to 48 hours if her oxygen continues to improve she likely will need home oxygen as her history and as a result a walk test prior to discharge is appropriate. I also discussed with her brother who is also requested that tomorrow we will give an update to the sister about her condition prior to discharge. I have placed a walk test for tomorrow and have discussed with nursing staff also 12/23; patient was on 4L of oxygen saturating 95%. Patient has bouts of anxiety and on 0.25 mg of Xanax as needed. We will do home O2 evaluation and possible discharge today. Patient need PT OT evaluation. Will discuss with case management about her concerns stairs in her house. 12/24; patient was on 5 L of oxygen. Patient need PT OT evaluation. Try to call her brother yesterday but he could not bulk picker his phone. Patient is deconditioned and very weak. Patient may need rehab after evaluated by PT OT. (1) Acute hypoxic respiratory failure 2/2 Covid 19 PNA pulmonary note reviewed Patient is on 5 L via nasal cannula (2) COVID-19 pneumonia Current Visit: Yes Status: Acute Plan to address problem: ID note reviewed inflammatory markers reviewed-improving Completed Decadron and remdesivir course 3. Severe sepsis procalcitonin results reviewed ID note reviewed Off antibiotics 4) leukocytosis improved (5) Hypertension Current Visit: Yes Status: Acute Plan to address problem: Hydralazine 10 mg IV every 6 hours as needed she has no hx of HTN 6) Transaminitis: results reviewed-improving well cont. to monitor (7) anemia Normocytic type H&H stable (8) Anxiety Continue alprazolam as needed 12/09/2020 -Patient was on BiPAP with FiO2 of 100%, patient desaturated when she was off BiPAP momentarily. I put her on D5 half-normal saline for maintenance. Titrate oxygen as tolerated. -Pulmonary consulted, ID consulted. -Patient has elevated ALT and AST and is not a candidate for remdesivir. -Patient is on IV antibiotics and procalcitonin level is elevated, ID recommends to continue with IV antibiotics. ID said patient is not a candidate for Actemra because of the infection with elevated procalcitonin level. 12/10; Patient is on BiPAP, on Decadron. Remdesivir discontinued due to elevated liver enzymes. Patient not a candidate for Actemra because patient has elevated procalcitonin level. Continue with IV antibiotics. Prognosis is guarded. 12/11 Patient is A&O,A&O, c/o weakness and feels tired. C/O shortness of breath. requesting stool sofner. She denies f/c/CP/N/abd. pain 12/12: Continue supportive care. Wean oxygen as tolerated. Will obtain pulmonary consult will evaluate for possible Lasix therapy. Noted anemia with hemoglobin of 8.1 will monitor this closely. D-dimer is elevated so is AST and ALT and alk phos. This may preclude use of medications such as remdesivir which has been discontinued in relation to this. Patient remains critically ill. 12/13: Patient showing some improve, still with BiPAP requirements, continue supportive care, continued sterods, Remdesivr per ID, monitor renal function closely and LFT. wean oxygen as tolerated. Prognosis guarded 12/14: Patient seen and examined, she is showing good improvement, down to 10 liters except that she gets anxious. I spoke extensively with the family and updated them on her clinical condition 12/15: Patient continues to show good improvement, weaned down to 5L of oxygen with saturation of 99%. Will transfer to Medical floor and continue current management. 12/16: Patient was doing well this am, on 5 liters and sating 95%, later desated and was placed back on BIPAP. reassurance and counselling provided 12/17: Patient remains on oxygen high flow. I believe that she will be able to be weaned if she if we can control her anxiety. Discussed with nursing staff at bedside also discussed with the patient. Will begin LTAC referral in a.m. 12/18/20 patient is seen and examined. Less shortness of breath. No chest pain. Anxious. Is on high flow oxygen at 40 L with 75% FiO2. We cut down the FiO2 75% from 80%. Wean oxygen. Continue current management. LTAC referral 12/19: Ms. Jarrett continues to show some improvement, She is currently on 70% FIO2 and satting 99%. Discussed with respiratory therapist will try to wean down further. Will transfer to [facility]. Continue to encourage slow deep breaths. Continue to use anxiolytics. Awaiting LTAC approval. Continue to monitor hemoglobin. 12/20: Patient seen and examined, patient needs to continue weaning of oxygen, satting 98% on 70%FIO2. Her anxiety level is improving, can transfer to [facility] 12/21: Patient showing good disposition. Currently FiO2 is down to 50% with saturation of 96% we will continue current management. Continue to encourage prone position. 12/22: Patient seen and examined this morning actually doing well. She is down to 3 L with a sat of 94%. She unfortunately has bouts of anxiety relative to the loss of her parents due to COVID-19 who unfortunately have not been buried and this makes her oxygen demand go up but while she comes down she is able to do well at 3 L. I think psychologically she will benefit from being discharged in 24 to 48 hours if her oxygen continues to improve she likely will need home oxygen as her history and as a result a walk test prior to discharge is appropriate. I also discussed with her brother who is also requested that tomorrow we will give an update to the sister about her condition prior to discharge. I have placed a walk test for tomorrow and have discussed with nursing staff also 12/23; patient was on 4L of oxygen saturating 95%. Patient has bouts of anxiety and on 0.25 mg of Xanax as needed. We will do home O2 evaluation and possible discharge today. Patient need PT OT evaluation. Will discuss with case management about her concerns stairs in her house. 12/24; patient was on 5 L of oxygen. Patient need PT OT evaluation. Try to call her brother yesterday but he could not bulk picker his phone. Patient is deconditioned and very weak. Patient may need rehab after evaluated by PT OT. 12/25 patient is alert and oriented and complains of weakness and feeling tired, also complains of coughing spells and feels short of breath with mild effort She denies any fever or chills, denies chest pain, abdominal pain or dysuria. Lab results reviewed 12/26 patient is alert and oriented and on 5 L oxygen via nasal cannula. Complains of cough and shortness of breath with minimal effort and desaturates with mild effort. Also complains of anxiety and depression lab results reviewed. Pulmonary note reviewed 12/27: Patient clinical stable this morning, anxiously waiting to be discharged, i found her on 3 liters of oxygen and with no distress. I did have extensive conversation with her about her medical condition and critical factors to monitor for she states that she already has home oxygen and also has a pulse oximeter which she will monitor daily. Disposition: HOME HEALTH CARE SERVICE Final Discharge Diagnosis (Prints w/discharge instructions): Acute hypoxic respiratory failure secondary to COVID-19 Time spent for discharge: 35 mins Core Measure Documentation - Palliative Care Palliative Care/ Comfort Measures: Not Applicable - Core Measures Any of the following diagnoses?: none Exam - Physical Exam Narrative exam: VITAL SIGNS: Reviewed. GENERAL: The patient appears normally developed, mild shortness of breath much improved compared to prior improving, vital signs as documented. HEAD: No signs of head trauma. EYES: Pupils are equal. Extraocular motions intact. EARS: Hearing grossly intact. MOUTH: Oropharynx is normal. NECK: No adenopathy, no JVD. CHEST: Chest with diminished breath sounds bilaterally. No wheezes, rales, or rhonchi. CARDIAC: Regular rate and rhythm. S1 and S2, without murmurs, gallops, or rubs. VASCULAR: No Edema. Peripheral pulses normal and equal in all extremities. ABDOMEN: Soft, non tender and non distended. No rebound or guarding, and no masses palpated. Bowel Sounds normal. MUSCULOSKELETAL: Good range of motion of all major joints. Extremities without clubbing, cyanosis or edema. NEUROLOGIC EXAM: Alert and oriented x 3, No focal sensory or strength deficits. Speech normal. Follows commands. PSYCHIATRIC: Mood normal not at the moment SKIN: detail exam as documented in skin assessment - Constitutional Vitals: Temp Pulse Resp BP Pulse Ox 99.7 F H 100 H 20 108/74 98 12/27/20 04:32 12/27/20 04:32 12/27/20 04:32 12/27/20 04:32 12/27/20 09:45 Plan Activity: advance as tolerated, fall precautions Diet: low fat Special Instructions: record daily BP diary, record blood sugar diary, home oxygen via (nasal cannula @ 3 liters per minute), other (monitor Pulse ox- Return to hospital if persistently lower than 90% on oxygen) Plan of Treatment: Continue with mask follow protocol get vaccinated when cleared by PCP Follow up with: PRIMARY JEZ, [Primary Care Provider] - 7 Days EARNEST AGUIAR MD [Staff Physician] - 7 Days ANGELINE ROSALES MD [Staff Physician] - 7 Days Prescriptions: Apixaban [Eliquis] 5 mg PO BID #60 tablet Famotidine [Pepcid] 20 mg PO BID #60 tablet guaiFENesin/CODEINE [Robitussin AC] 10 ml PO Q6H #14 oral.liqd Ascorbic Acid [Vitamin C] 500 mg PO BID #30 tablet Cholecalciferol Vit D3 [Vitamin D3 1,000 UNIT TAB] 1,000 unit PO QDAY #30 tablet ALPRAZolam [Xanax TAB] 0.25 mg PO Q6H PRN #14 tablet PRN Reason: Anxiety lisinopriL [Zestril TAB] 20 mg PO QDAY #30 tablet Zinc Sulfate 220 mg PO QDAY #30 capsule
--- NOTE | 2020-12-27 10:27 | Progress Note ---
Assessment and Plan 50-year-old female with history of hypertension was brought to the emergency room because of shortness of breath, cough, fever, Covid positive. Patient was diagnosed with COVID-19 1 week ago. Since then patient complained of worsening shortness of breath. Patient states she has not seen a physician for this. Patient states she does not take any medicine. Patient states the fever is fluctuating. Patient states it responds well to Tylenol. Patient states her cough is dry. Patient states she has not been vaccinated for COVID-19. Patient complains of chills. Patient denies nausea vomiting. Patient denies diarrhea. Patient denies abdominal pain. Patient denies chest pain. patient's ox saturation was 82%. Patient was found to have acute respiratory failure. Patient WBC 17.0 and chest x-ray shows pneumonia secondary to Covid. Patient was put on BiPAP Patient awake. Patient says cough is better. Patients O2 requirements came down. Patient is on 2 litres O2 via nasal canula, and O2 saturation running 98% Patient afebrile and has mild leukocytosis. Blood pressure 111/75,Pulse 102. Chest xray done 12/07/20 reported here is patchy diffuse ground glass predominant airspace disease and also mild bibasilar consolidation/atelectasis. No pleural effusion. CT of chest done 12/08/20 reported Negative for PTE. Pulmonary findings as above suggesting an atypical etiology versus interstitial edema. Venous doppler studies of legs 12/08/20 No sonographic evidence for DVT in either lower extremity. Patient presently on S/C Lovenox, Famotidine.Albuterol inhaler. Patient finished course of dexamethasone and REMDESIVIR. - Patient Problems (1) Acute respiratory failure Current Visit: Yes Status: Acute Plan to address problem: O2 2 litres via nasal canula. Finished course of dexamethasone and Remdesivir Continue S/C Lovenox. Continue Famotidine. Albuterol inhaler (2) COVID-19 Current Visit: Yes Status: Acute Plan to address problem: Patient is finished course of Dexamethasone and REMDESIVIR (3) Hypertension Current Visit: Yes Status: Acute Plan to address problem: Management as per primary care. (4) Pneumonia Current Visit: Yes Status: Acute Qualifiers: Pneumonia type: due to unspecified organism Laterality: bilateral Lung location: unspecified part of lung Qualified Code(s): J18.9 - Pneumonia, unspecified organism Plan to address problem: Patient is on short course of ceftriaxone and zithromax. Antibiotics as per infectious diseases. Subjective Date of service: 12/27/20 Principal diagnosis: Ac hypoxemic resp failure; COVID-19 infxn; Pneumonia; Sepsis Interval history: 50-year-old female with history of hypertension was brought to the emergency room because of shortness of breath, cough, fever, Covid positive. Patient was diagnosed with COVID-19 1 week ago. Since then patient complained of worsening shortness of breath. Patient states she has not seen a physician for this. Patient states she does not take any medicine. Patient states the fever is fluctuating. Patient states it responds well to Tylenol. Patient states her cough is dry. Patient states she has not been vaccinated for COVID-19. Patient complains of chills. Patient denies nausea vomiting. Patient denies diarrhea. Patient denies abdominal pain. Patient denies chest pain. patient's ox saturation was 82%. Patient was found to have acute respiratory failure. Patient WBC 17.0 and chest x-ray shows pneumonia secondary to Covid. Patient was put on BiPAP Patient awake. Patient says cough is better. Patients O2 requirements came down. Patient is on 2 litres O2 via nasal canula, and O2 saturation running 98% Patient afebrile and has mild leukocytosis. Blood pressure 111/75,Pulse 102. Chest xray done 12/07/20 reported here is patchy diffuse ground glass predominant airspace disease and also mild bibasilar consolidation/atelectasis. No pleural effusion. CT of chest done 12/08/20 reported Negative for PTE. Pulmonary findings as above suggesting an atypical etiology versus interstitial edema. Venous doppler studies of legs 12/08/20 No sonographic evidence for DVT in eit her lower extremity. Chest xray done 12/22/20 reported Stable appearance of the chest. Moderate pulm onary airspace disease persists. Patient presently on S/C Lovenox, Famotidine.Albuterol inhaler. Patient finished course of dexamethasone and REMDESIVIR. Objective Vital Signs - 12hr 12/26/20 12/27/20 12/27/20 23:17 04:32 09:45 Temperature 99.7 F H Pulse Rate 100 H Respiratory 20 Rate Blood Pressure 108/74 O2 Sat by Pulse 97 98 98 Oximetry Constitutional: no acute distress, alert, other (middle aged female without increased respiratory effort at rest) Eyes: non-icteric ENT: oropharynx moist Neck: supple, no lymphadenopathy, no JVD Effort: normal Ascultation: Bilateral: rhonchi (bases posteriorly) Percussion: Bilateral: not dull Cardiovascular: regular rate and rhythm Gastrointestinal: normoactive bowel sounds, soft, non-tender, non-distended Integumentary: normal Extremities: no cyanosis, no edema, pulses normal, no ischemia or petechiae Neurologic: normal mental status, non-focal exam, pupils equal and round, CN II- XII normal, motor strength normal and Psychiatric: mood appropriate, affect normal CBC and BMP: 12/27/20 05:53 12/27/20 05:52 ABG, PT/INR, D-dimer: ABG ABG pH 7.449 (7.320-7.450) 12/10/20 08:45 POC ABG pCO2 36.5 mmHg (32.0-48.0) 12/10/20 08:45 POC ABG pO2 64.5 mmHg (83-108) L 12/10/20 08:45 POC ABG HCO3 24.7 12/10/20 08:45 ABG O2 Saturation 91.0 (0-100) 12/10/20 08:45 PT/INR, D-dimer PT 16.4 Sec. (12.2-14.9) H 12/08/20 00:15 INR 1.27 (0.87-1.13) H 12/08/20 00:15 D-Dimer 660.07 ng/mlDDU (0-234) H 12/15/20 04:37 Abnormal lab findings: Abnormal Labs 12/08/20 12/08/20 12/08/20 00:15 00:15 00:15 WBC 17.0 H RBC 5.40 H Hgb 8.3 L Hct 29.7 L MCV 55 L MCH 16 L MCHC 28 L RDW 25.0 H Plt Count 464 H [place] # (Auto) Seg Neutrophils % Seg Neuts % (Manual) 92.0 H Lymphocytes % (Manual) 1.0 L Nucleated RBC % Seg Neutrophils # Seg Neutrophils # Man 15.6 H Lymphocytes # (Manual) 0.2 L Monocytes # (Manual) PT 16.4 H INR 1.27 H D-Dimer 1129.87 H POC ABG pO2 ABG Hemoglobin ABG Oxyhemoglobin ABG Potassium ABG Chloride ABG Glucose Potassium 3.1 L Chloride BUN Creatinine Glucose 128 H Lactic Acid Calcium 8.3 L Ferritin Total Bilirubin 1.90 H Direct Bilirubin AST 309 H ALT 1384 H Alkaline Phosphatase 440 H Lactate Dehydrogenase C-Reactive Protein Total Protein Albumin 3.2 L Arterial Blood Glucose Coronavirus (PCR) 12/08/20 12/08/20 12/08/20 00:15 00:15 00:15 WBC RBC Hgb Hct MCV MCH MCHC RDW Plt Count [place] # (Auto) Seg Neutrophils % Seg Neuts % (Manual) Lymphocytes % (Manual) Nucleated RBC % Seg Neutrophils # Seg Neutrophils # Man Lymphocytes # (Manual) Monocytes # (Manual) PT INR D-Dimer POC ABG pO2 ABG Hemoglobin ABG Oxyhemoglobin ABG Potassium ABG Chloride ABG Glucose Potassium Chloride BUN Creatinine Glucose Lactic Acid 2.30 H* Calcium Ferritin 289.8 H Total Bilirubin Direct Bilirubin AST ALT Alkaline Phosphatase Lactate Dehydrogenase 608 H C-Reactive Protein 20.70 H Total Protein Albumin Arterial Blood Glucose Coronavirus (PCR) 12/08/20 12/08/20 12/08/20 02:16 09:49 10:30 WBC RBC Hgb Hct MCV MCH MCHC RDW Plt Count [place] # (Auto) Seg Neutrophils % Seg Neuts % (Manual) Lymphocytes % (Manual) Nucleated RBC % Seg Neutrophils # Seg Neutrophils # Man Lymphocytes # (Manual) Monocytes # (Manual) PT INR D-Dimer POC ABG pO2 ABG Hemoglobin ABG Oxyhemoglobin ABG Potassium ABG Chloride ABG Glucose Potassium Chloride BUN Creatinine Glucose Lactic Acid 2.50 H* 2.40 H* Calcium Ferritin Total Bilirubin Direct Bilirubin AST ALT Alkaline Phosphatase Lactate Dehydrogenase C-Reactive Protein Total Protein Albumin Arterial Blood Glucose Coronavirus (PCR) Positive A 12/09/20 12/09/20 12/09/20 04:33 04:33 09:13 WBC 21.0 H RBC 5.12 H Hgb 8.2 L Hct 29.1 L MCV 57 L MCH 16 L MCHC 28 L RDW 24.6 H Plt Count 509 H [place] # (Auto) 1.3 H Seg Neutrophils % 84.3 H Seg Neuts % (Manual) 93.0 H Lymphocytes % (Manual) 2.0 L Nucleated RBC % 2.0 H Seg Neutrophils # 17.8 H Seg Neutrophils # Man 19.5 H Lymphocytes # (Manual) 0.4 L Monocytes # (Manual) PT INR D-Dimer POC ABG pO2 ABG Hemoglobin ABG Oxyhemoglobin ABG Potassium ABG Chloride ABG Glucose Potassium 3.5 L Chloride BUN 30 H 29 H Creatinine Glucose 190 H 129 H Lactic Acid Calcium Ferritin Total Bilirubin Direct Bilirubin AST 276 H ALT 867 H Alkaline Phosphatase 685 H Lactate Dehydrogenase C-Reactive Protein Total Protein Albumin 3.1 L Arterial Blood Glucose Coronavirus (PCR) 12/09/20 12/10/20 12/10/20 19:16 05:04 05:04 WBC RBC Hgb Hct MCV MCH MCHC RDW Plt Count [place] # (Auto) Seg Neutrophils % Seg Neuts % (Manual) Lymphocytes % (Manual) Nucleated RBC % Seg Neutrophils # Seg Neutrophils # Man Lymphocytes # (Manual) Monocytes # (Manual) PT INR D-Dimer POC ABG pO2 ABG Hemoglobin ABG Oxyhemoglobin ABG Potassium ABG Chloride ABG Glucose Potassium 3.4 L Chloride BUN 25 H Creatinine Glucose 184 H Lactic Acid 2.80 H* 3.30 H* Calcium 7.9 L Ferritin Total Bilirubin Direct Bilirubin AST 277 H ALT 722 H Alkaline Phosphatase 773 H Lactate Dehydrogenase C-Reactive Protein Total Protein Albumin 2.9 L Arterial Blood Glucose Coronavirus (PCR) 12/10/20 12/10/20 12/10/20 08:11 08:45 11:15 WBC RBC Hgb Hct MCV MCH MCHC RDW Plt Count [place] # (Auto) Seg Neutrophils % Seg Neuts % (Manual) Lymphocytes % (Manual) Nucleated RBC % Seg Neutrophils # Seg Neutrophils # Man Lymphocytes # (Manual) Monocytes # (Manual) PT INR D-Dimer POC ABG pO2 64.5 L ABG Hemoglobin 7.6 L ABG Oxyhemoglobin 90.2 L ABG Potassium 3.3 L ABG Chloride 108.0 H ABG Glucose 126 H Potassium Chloride BUN Creatinine Glucose Lactic Acid 2.10 H* 2.40 H* Calcium Ferritin Total Bilirubin Direct Bilirubin AST ALT Alkaline Phosphatase Lactate Dehydrogenase C-Reactive Protein Total Protein Albumin Arterial Blood Glucose 126 H Coronavirus (PCR) 12/10/20 12/10/20 12/11/20 13:36 19:13 00:49 WBC RBC Hgb Hct MCV MCH MCHC RDW Plt Count [place] # (Auto) Seg Neutrophils % Seg Neuts % (Manual) Lymphocytes % (Manual) Nucleated RBC % Seg Neutrophils # Seg Neutrophils # Man Lymphocytes # (Manual) Monocytes # (Manual) PT INR D-Dimer POC ABG pO2 ABG Hemoglobin ABG Oxyhemoglobin ABG Potassium ABG Chloride ABG Glucose Potassium 3.4 L Chloride BUN Creatinine Glucose Lactic Acid 3.40 H* 2.30 H* Calcium Ferritin Total Bilirubin Direct Bilirubin AST ALT Alkaline Phosphatase Lactate Dehydrogenase C-Reactive Protein Total Protein Albumin Arterial Blood Glucose Coronavirus (PCR) 12/11/20 12/11/20 12/11/20 05:34 05:34 10:06 WBC RBC Hgb Hct MCV MCH MCHC RDW Plt Count [place] # (Auto) Seg Neutrophils % Seg Neuts % (Manual) Lymphocytes % (Manual) Nucleated RBC % Seg Neutrophils # Seg Neutrophils # Man Lymphocytes # (Manual) Monocytes # (Manual) PT INR D-Dimer POC ABG pO2 ABG Hemoglobin ABG Oxyhemoglobin ABG Potassium ABG Chloride ABG Glucose Potassium Chloride 108.1 H BUN Creatinine 0.4 L Glucose 160 H Lactic Acid 2.30 H* 2.90 H* Calcium 8.3 L Ferritin Total Bilirubin Direct Bilirubin AST 249 H ALT 589 H Alkaline Phosphatase 701 H Lactate Dehydrogenase C-Reactive Protein Total Protein 5.9 L Albumin 3.0 L Arterial Blood Glucose Coronavirus (PCR) 12/11/20 12/11/20 12/11/20 12:38 12:38 12:38 WBC RBC Hgb Hct MCV MCH MCHC RDW Plt Count [place] # (Auto) Seg Neutrophils % Seg Neuts % (Manual) Lymphocytes % (Manual) Nucleated RBC % Seg Neutrophils # Seg Neutrophils # Man Lymphocytes # (Manual) Monocytes # (Manual) PT INR D-Dimer 725.41 H POC ABG pO2 ABG Hemoglobin ABG Oxyhemoglobin ABG Potassium ABG Chloride ABG Glucose Potassium Chloride BUN Creatinine Glucose Lactic Acid 2.50 H* Calcium Ferritin Total Bilirubin Direct Bilirubin AST ALT Alkaline Phosphatase Lactate Dehydrogenase 447 H C-Reactive Protein 2.90 H Total Protein Albumin Arterial Blood Glucose Coronavirus (PCR) 12/12/20 12/12/20 12/12/20 05:01 05:01 05:01 WBC 15.3 H RBC Hgb 8.1 L Hct 28.4 L MCV 57 L MCH 16 L MCHC 29 L RDW 25.0 H Plt Count 809 H [place] # (Auto) Seg Neutrophils % Seg Neuts % (Manual) 83.0 H Lymphocytes % (Manual) 10.0 L Nucleated RBC % 2.0 H Seg Neutrophils # Seg Neutrophils # Man 12.7 H Lymphocytes # (Manual) Monocytes # (Manual) 1.1 H PT INR D-Dimer 752.84 H POC ABG pO2 ABG Hemoglobin ABG Oxyhemoglobin ABG Potassium ABG Chloride ABG Glucose Potassium Chloride BUN 20 H Creatinine 0.4 L Glucose 120 H Lactic Acid Calcium Ferritin Total Bilirubin Direct Bilirubin AST 121 H ALT 469 H Alkaline Phosphatase 633 H Lactate Dehydrogenase 511 H C-Reactive Protein 3.50 H Total Protein Albumin 3.1 L Arterial Blood Glucose Coronavirus (PCR) 12/13/20 12/13/20 12/14/20 07:25 07:25 13:54 WBC 11.2 H RBC Hgb 7.2 L Hct 24.3 L MCV 57 L MCH 17 L MCHC RDW 25.5 H Plt Count 634 H [place] # (Auto) Seg Neutrophils % Seg Neuts % (Manual) Lymphocytes % (Manual) Nucleated RBC % Seg Neutrophils # Seg Neutrophils # Man Lymphocytes # (Manual) Monocytes # (Manual) PT INR D-Dimer POC ABG pO2 ABG Hemoglobin ABG Oxyhemoglobin ABG Potassium ABG Chloride ABG Glucose Potassium Chloride 107.6 H BUN 25 H Creatinine 0.4 L Glucose 132 H Lactic Acid Calcium Ferritin Total Bilirubin Direct Bilirubin 0.3 H 0.4 H AST 72 H 115 H ALT 295 H 318 H Alkaline Phosphatase 466 H 617 H Lactate Dehydrogenase C-Reactive Protein Total Protein 6.1 L Albumin 2.7 L 3.0 L Arterial Blood Glucose Coronavirus (PCR) 12/14/20 12/14/20 12/15/20 13:54 13:54 04:37 WBC RBC Hgb Hct MCV MCH MCHC RDW Plt Count [place] # (Auto) Seg Neutrophils % Seg Neuts % (Manual) Lymphocytes % (Manual) Nucleated RBC % Seg Neutrophils # Seg Neutrophils # Man Lymphocytes # (Manual) Monocytes # (Manual) PT INR D-Dimer 806.70 H POC ABG pO2 ABG Hemoglobin ABG Oxyhemoglobin ABG Potassium ABG Chloride ABG Glucose Potassium Chloride BUN Creatinine Glucose Lactic Acid Calcium Ferritin Total Bilirubin Direct Bilirubin 0.3 H AST 97 H ALT 281 H Alkaline Phosphatase 553 H Lactate Dehydrogenase C-Reactive Protein 1.70 H Total Protein 6.2 L Albumin 2.8 L Arterial Blood Glucose Coronavirus (PCR) 12/15/20 12/25/20 12/25/20 04:37 07:42 07:42 WBC 11.6 H RBC 5.13 H Hgb 9.2 L Hct MCV 64 L MCH 18 L MCHC 28 L RDW 28.1 H Plt Count [place] # (Auto) Seg Neutrophils % Seg Neuts % (Manual) Lymphocytes % (Manual) Nucleated RBC % Seg Neutrophils # Seg Neutrophils # Man Lymphocytes # (Manual) Monocytes # (Manual) PT INR D-Dimer 660.07 H POC ABG pO2 ABG Hemoglobin ABG Oxyhemoglobin ABG Potassium ABG Chloride ABG Glucose Potassium Chloride BUN 19 H Creatinine 0.4 L Glucose 107 H Lactic Acid Calcium Ferritin Total Bilirubin Direct Bilirubin AST 71 H ALT 101 H Alkaline Phosphatase 388 H Lactate Dehydrogenase C-Reactive Protein Total Protein Albumin 3.1 L Arterial Blood Glucose Coronavirus (PCR) 12/27/20 12/27/20 05:52 05:53 WBC RBC Hgb 8.3 L Hct 29.1 L MCV 62 L MCH 18 L MCHC 29 L RDW 28.2 H Plt Count [place] # (Auto) Seg Neutrophils % Seg Neuts % (Manual) Lymphocytes % (Manual) Nucleated RBC % Seg Neutrophils # Seg Neutrophils # Man Lymphocytes # (Manual) Monocytes # (Manual) PT INR D-Dimer POC ABG pO2 ABG Hemoglobin ABG Oxyhemoglobin ABG Potassium ABG Chloride ABG Glucose Potassium Chloride BUN Creatinine 0.3 L Glucose 101 H Lactic Acid Calcium Ferritin Total Bilirubin Direct Bilirubin AST ALT 80 H Alkaline Phosphatase 393 H Lactate Dehydrogenase C-Reactive Protein Total Protein Albumin 3.2 L Arterial Blood Glucose Coronavirus (PCR) Allied health notes reviewed: nursing
[2020-12-27] MEDS: ACETAMINOPHEN 325 MG TAB PO PRN (21:54)
[2020-12-27] MEDS: ALPRAZolam 0.25 MG TAB PO PRN (21:55)
[2020-12-28] MEDS: guaiFENesin/CODEINE 100-10MG ORAL LIQD 5 ML PO SCH ×4 (01:52→19:57)
--- NOTE | 2020-12-28 08:43 | Progress Note ---
Assessment and Plan 50-year-old female with history of hypertension was brought to the emergency room because of shortness of breath, cough, fever, Covid positive. Patient was diagnosed with COVID-19 1 week ago. Since then patient complained of worsening shortness of breath. Patient states she has not seen a physician for this. Patient states she does not take any medicine. Patient states the fever is fluctuating. Patient states it responds well to Tylenol. Patient states her cough is dry. Patient states she has not been vaccinated for COVID-19. Patient complains of chills. Patient denies nausea vomiting. Patient denies diarrhea. Patient denies abdominal pain. Patient denies chest pain. patient's ox saturation was 82%. Patient was found to have acute respiratory failure. Patient WBC 17.0 and chest x-ray shows pneumonia secondary to Covid. Patient was put on BiPAP Patient awake. Patient says feeling better. Patients O2 requirements came down. Patient is on 2 litres O2 via nasal canula, and O2 saturation running 100% Patient running low grade temp at times.and has no leukocytosis. Blood pressure 104/69,Pulse 99. Chest xray done 12/07/20 reported here is patchy diffuse ground glass predominant airspace disease and also mild bibasilar consolidation/atelectasis. No pleural effusion. CT of chest done 12/08/20 reported Negative for PTE. Pulmonary findings as above suggesting an atypical etiology versus interstitial edema. Venous doppler studies of legs 12/08/20 No sonographic evidence for DVT in either lower extremity. Patient presently on S/C Lovenox, Famotidine.Albuterol inhaler. Patient finished course of dexamethasone and REMDESIVIR. - Patient Problems (1) Acute respiratory failure Current Visit: Yes Status: Acute Plan to address problem: O2 2 litres via nasal canula. Finished course of dexamethasone and Remdesivir Continue S/C Lovenox. Continue Famotidine. Albuterol inhaler (2) COVID-19 Current Visit: Yes Status: Acute Plan to address problem: Patient is finished course of Dexamethasone and REMDESIVIR (3) Hypertension Current Visit: Yes Status: Acute Plan to address problem: Management as per primary care. (4) Pneumonia Current Visit: Yes Status: Acute Qualifiers: Pneumonia type: due to unspecified organism Laterality: bilateral Lung location: unspecified part of lung Qualified Code(s): J18.9 - Pneumonia, unspecified organism Plan to address problem: Patient is on short course of ceftriaxone and zithromax. Antibiotics as per infectious diseases. Subjective Date of service: 12/28/20 Principal diagnosis: Ac hypoxemic resp failure; COVID-19 infxn; Pneumonia; Sepsis Interval history: 50-year-old female with history of hypertension was brought to the emergency room because of shortness of breath, cough, fever, Covid positive. Patient was diagnosed with COVID-19 1 week ago. Since then patient complained of worsening shortness of breath. Patient states she has not seen a physician for this. Patient states she does not take any medicine. Patient states the fever is fluctuating. Patient states it responds well to Tylenol. Patient states her cough is dry. Patient states she has not been vaccinated for COVID-19. Patient complains of chills. Patient denies nausea vomiting. Patient denies diarrhea. Patient denies abdominal pain. Patient denies chest pain. patient's ox saturation was 82%. Patient was found to have acute respiratory failure. Patient WBC 17.0 and chest x-ray shows pneumonia secondary to Covid. Patient was put on BiPAP Patient awake. Patient says feeling better. Patients O2 requirements came down. Patient is on 2 litres O2 via nasal canula, and O2 saturation running 100% Patient running low grade temp at times.and has no leukocytosis. Blood pressure 104/69,Pulse 99. Chest xray done 12/07/20 reported here is patchy diffuse ground glass predominant airspace disease and also mild bibasilar consolidation/atelectasis. No pleural effusion. CT of chest done 12/08/20 reported Negative for PTE. Pulmonary findings as above suggesting an atypical etiology versus interstitial edema. Venous doppler studies of legs 12/08/20 No sonographic evidence for DVT in either lower extremity. Chest xray done 12/22/20 reported Stable appearance of the chest. Moderate pulmonary airspace disease persists. Patient presently on S/C Lovenox, Famotidine.Albuterol inhaler. Patient finished course of dexamethasone and REMDESIVIR. Objective Vital Signs - 12hr 12/27/20 12/28/20 12/28/20 22:00 00:00 04:00 Temperature Pulse Rate 114 H 90 Respiratory 20 Rate Blood Pressure O2 Sat by Pulse 96 Oximetry 12/28/20 05:14 Temperature 98.4 F Pulse Rate 90 Respiratory 20 Rate Blood Pressure 96/63 O2 Sat by Pulse 97 Oximetry Constitutional: no acute distress, alert, other (middle aged female without increased respiratory effort at rest) Eyes: non-icteric ENT: oropharynx moist Neck: supple, no lymphadenopathy, no JVD Effort: normal Ascultation: Bilateral: rhonchi (bases posteriorly) Percussion: Bilateral: not dull Cardiovascular: regular rate and rhythm Gastrointestinal: normoactive bowel sounds, soft, non-tender, non-distended Integumentary: normal Extremities: no cyanosis, no edema, pulses normal, no ischemia or petechiae Neurologic: normal mental status, non-focal exam, pupils equal and round, CN II- XII normal, motor strength normal and Psychiatric: mood appropriate, affect normal CBC and BMP: 12/27/20 05:53 12/27/20 05:52 ABG, PT/INR, D-dimer: ABG ABG pH 7.449 (7.320-7.450) 12/10/20 08:45 POC ABG pCO2 36.5 mmHg (32.0-48.0) 12/10/20 08:45 POC ABG pO2 64.5 mmHg (83-108) L 12/10/20 08:45 POC ABG HCO3 24.7 12/10/20 08:45 ABG O2 Saturation 91.0 (0-100) 12/10/20 08:45 PT/INR, D-dimer PT 16.4 Sec. (12.2-14.9) H 12/08/20 00:15 INR 1.27 (0.87-1.13) H 12/08/20 00:15 D-Dimer 660.07 ng/mlDDU (0-234) H 12/15/20 04:37 Abnormal lab findings: Abnormal Labs 12/08/20 12/08/20 12/08/20 00:15 00:15 00:15 WBC 17.0 H RBC 5.40 H Hgb 8.3 L Hct 29.7 L MCV 55 L MCH 16 L MCHC 28 L RDW 25.0 H Plt Count 464 H [place] # (Auto) Seg Neutrophils % Seg Neuts % (Manual) 92.0 H Lymphocytes % (Manual) 1.0 L Nucleated RBC % Seg Neutrophils # Seg Neutrophils # Man 15.6 H Lymphocytes # (Manual) 0.2 L Monocytes # (Manual) PT 16.4 H INR 1.27 H D-Dimer 1129.87 H POC ABG pO2 ABG Hemoglobin ABG Oxyhemoglobin ABG Potassium ABG Chloride ABG Glucose Potassium 3.1 L Chloride BUN Creatinine Glucose 128 H Lactic Acid Calcium 8.3 L Ferritin Total Bilirubin 1.90 H Direct Bilirubin AST 309 H ALT 1384 H Alkaline Phosphatase 440 H Lactate Dehydrogenase C-Reactive Protein Total Protein Albumin 3.2 L Arterial Blood Glucose Coronavirus (PCR) 12/08/20 12/08/20 12/08/20 00:15 00:15 00:15 WBC RBC Hgb Hct MCV MCH MCHC RDW Plt Count [place] # (Auto) Seg Neutrophils % Seg Neuts % (Manual) Lymphocytes % (Manual) Nucleated RBC % Seg Neutrophils # Seg Neutrophils # Man Lymphocytes # (Manual) Monocytes # (Manual) PT INR D-Dimer POC ABG pO2 ABG Hemoglobin ABG Oxyhemoglobin ABG Potassium ABG Chloride ABG Glucose Potassium Chloride BUN Creatinine Glucose Lactic Acid 2.30 H* Calcium Ferritin 289.8 H Total Bilirubin Direct Bilirubin AST ALT Alkaline Phosphatase Lactate Dehydrogenase 608 H C-Reactive Protein 20.70 H Total Protein Albumin Arterial Blood Glucose Coronavirus (PCR) 12/08/20 12/08/20 12/08/20 02:16 09:49 10:30 WBC RBC Hgb Hct MCV MCH MCHC RDW Plt Count [place] # (Auto) Seg Neutrophils % Seg Neuts % (Manual) Lymphocytes % (Manual) Nucleated RBC % Seg Neutrophils # Seg Neutrophils # Man Lymphocytes # (Manual) Monocytes # (Manual) PT INR D-Dimer POC ABG pO2 ABG Hemoglobin ABG Oxyhemoglobin ABG Potassium ABG Chloride ABG Glucose Potassium Chloride BUN Creatinine Glucose Lactic Acid 2.50 H* 2.40 H* Calcium Ferritin Total Bilirubin Direct Bilirubin AST ALT Alkaline Phosphatase Lactate Dehydrogenase C-Reactive Protein Total Protein Albumin Arterial Blood Glucose Coronavirus (PCR) Positive A 12/09/20 12/09/20 12/09/20 04:33 04:33 09:13 WBC 21.0 H RBC 5.12 H Hgb 8.2 L Hct 29.1 L MCV 57 L MCH 16 L MCHC 28 L RDW 24.6 H Plt Count 509 H [place] # (Auto) 1.3 H Seg Neutrophils % 84.3 H Seg Neuts % (Manual) 93.0 H Lymphocytes % (Manual) 2.0 L Nucleated RBC % 2.0 H Seg Neutrophils # 17.8 H Seg Neutrophils # Man 19.5 H Lymphocytes # (Manual) 0.4 L Monocytes # (Manual) PT INR D-Dimer POC ABG pO2 ABG Hemoglobin ABG Oxyhemoglobin ABG Potassium ABG Chloride ABG Glucose Potassium 3.5 L Chloride BUN 30 H 29 H Creatinine Glucose 190 H 129 H Lactic Acid Calcium Ferritin Total Bilirubin Direct Bilirubin AST 276 H ALT 867 H Alkaline Phosphatase 685 H Lactate Dehydrogenase C-Reactive Protein Total Protein Albumin 3.1 L Arterial Blood Glucose Coronavirus (PCR) 12/09/20 12/10/20 12/10/20 19:16 05:04 05:04 WBC RBC Hgb Hct MCV MCH MCHC RDW Plt Count [place] # (Auto) Seg Neutrophils % Seg Neuts % (Manual) Lymphocytes % (Manual) Nucleated RBC % Seg Neutrophils # Seg Neutrophils # Man Lymphocytes # (Manual) Monocytes # (Manual) PT INR D-Dimer POC ABG pO2 ABG Hemoglobin ABG Oxyhemoglobin ABG Potassium ABG Chloride ABG Glucose Potassium 3.4 L Chloride BUN 25 H Creatinine Glucose 184 H Lactic Acid 2.80 H* 3.30 H* Calcium 7.9 L Ferritin Total Bilirubin Direct Bilirubin AST 277 H ALT 722 H Alkaline Phosphatase 773 H Lactate Dehydrogenase C-Reactive Protein Total Protein Albumin 2.9 L Arterial Blood Glucose Coronavirus (PCR) 12/10/20 12/10/20 12/10/20 08:11 08:45 11:15 WBC RBC Hgb Hct MCV MCH MCHC RDW Plt Count [place] # (Auto) Seg Neutrophils % Seg Neuts % (Manual) Lymphocytes % (Manual) Nucleated RBC % Seg Neutrophils # Seg Neutrophils # Man Lymphocytes # (Manual) Monocytes # (Manual) PT INR D-Dimer POC ABG pO2 64.5 L ABG Hemoglobin 7.6 L ABG Oxyhemoglobin 90.2 L ABG Potassium 3.3 L ABG Chloride 108.0 H ABG Glucose 126 H Potassium Chloride BUN Creatinine Glucose Lactic Acid 2.10 H* 2.40 H* Calcium Ferritin Total Bilirubin Direct Bilirubin AST ALT Alkaline Phosphatase Lactate Dehydrogenase C-Reactive Protein Total Protein Albumin Arterial Blood Glucose 126 H Coronavirus (PCR) 12/10/20 12/10/20 12/11/20 13:36 19:13 00:49 WBC RBC Hgb Hct MCV MCH MCHC RDW Plt Count [place] # (Auto) Seg Neutrophils % Seg Neuts % (Manual) Lymphocytes % (Manual) Nucleated RBC % Seg Neutrophils # Seg Neutrophils # Man Lymphocytes # (Manual) Monocytes # (Manual) PT INR D-Dimer POC ABG pO2 ABG Hemoglobin ABG Oxyhemoglobin ABG Potassium ABG Chloride ABG Glucose Potassium 3.4 L Chloride BUN Creatinine Glucose Lactic Acid 3.40 H* 2.30 H* Calcium Ferritin Total Bilirubin Direct Bilirubin AST ALT Alkaline Phosphatase Lactate Dehydrogenase C-Reactive Protein Total Protein Albumin Arterial Blood Glucose Coronavirus (PCR) 12/11/20 12/11/20 12/11/20 05:34 05:34 10:06 WBC RBC Hgb Hct MCV MCH MCHC RDW Plt Count [place] # (Auto) Seg Neutrophils % Seg Neuts % (Manual) Lymphocytes % (Manual) Nucleated RBC % Seg Neutrophils # Seg Neutrophils # Man Lymphocytes # (Manual) Monocytes # (Manual) PT INR D-Dimer POC ABG pO2 ABG Hemoglobin ABG Oxyhemoglobin ABG Potassium ABG Chloride ABG Glucose Potassium Chloride 108.1 H BUN Creatinine 0.4 L Glucose 160 H Lactic Acid 2.30 H* 2.90 H* Calcium 8.3 L Ferritin Total Bilirubin Direct Bilirubin AST 249 H ALT 589 H Alkaline Phosphatase 701 H Lactate Dehydrogenase C-Reactive Protein Total Protein 5.9 L Albumin 3.0 L Arterial Blood Glucose Coronavirus (PCR) 12/11/20 12/11/20 12/11/20 12:38 12:38 12:38 WBC RBC Hgb Hct MCV MCH MCHC RDW Plt Count [place] # (Auto) Seg Neutrophils % Seg Neuts % (Manual) Lymphocytes % (Manual) Nucleated RBC % Seg Neutrophils # Seg Neutrophils # Man Lymphocytes # (Manual) Monocytes # (Manual) PT INR D-Dimer 725.41 H POC ABG pO2 ABG Hemoglobin ABG Oxyhemoglobin ABG Potassium ABG Chloride ABG Glucose Potassium Chloride BUN Creatinine Glucose Lactic Acid 2.50 H* Calcium Ferritin Total Bilirubin Direct Bilirubin AST ALT Alkaline Phosphatase Lactate Dehydrogenase 447 H C-Reactive Protein 2.90 H Total Protein Albumin Arterial Blood Glucose Coronavirus (PCR) 12/12/20 12/12/20 12/12/20 05:01 05:01 05:01 WBC 15.3 H RBC Hgb 8.1 L Hct 28.4 L MCV 57 L MCH 16 L MCHC 29 L RDW 25.0 H Plt Count 809 H [place] # (Auto) Seg Neutrophils % Seg Neuts % (Manual) 83.0 H Lymphocytes % (Manual) 10.0 L Nucleated RBC % 2.0 H Seg Neutrophils # Seg Neutrophils # Man 12.7 H Lymphocytes # (Manual) Monocytes # (Manual) 1.1 H PT INR D-Dimer 752.84 H POC ABG pO2 ABG Hemoglobin ABG Oxyhemoglobin ABG Potassium ABG Chloride ABG Glucose Potassium Chloride BUN 20 H Creatinine 0.4 L Glucose 120 H Lactic Acid Calcium Ferritin Total Bilirubin Direct Bilirubin AST 121 H ALT 469 H Alkaline Phosphatase 633 H Lactate Dehydrogenase 511 H C-Reactive Protein 3.50 H Total Protein Albumin 3.1 L Arterial Blood Glucose Coronavirus (PCR) 12/13/20 12/13/20 12/14/20 07:25 07:25 13:54 WBC 11.2 H RBC Hgb 7.2 L Hct 24.3 L MCV 57 L MCH 17 L MCHC RDW 25.5 H Plt Count 634 H [place] # (Auto) Seg Neutrophils % Seg Neuts % (Manual) Lymphocytes % (Manual) Nucleated RBC % Seg Neutrophils # Seg Neutrophils # Man Lymphocytes # (Manual) Monocytes # (Manual) PT INR D-Dimer POC ABG pO2 ABG Hemoglobin ABG Oxyhemoglobin ABG Potassium ABG Chloride ABG Glucose Potassium Chloride 107.6 H BUN 25 H Creatinine 0.4 L Glucose 132 H Lactic Acid Calcium Ferritin Total Bilirubin Direct Bilirubin 0.3 H 0.4 H AST 72 H 115 H ALT 295 H 318 H Alkaline Phosphatase 466 H 617 H Lactate Dehydrogenase C-Reactive Protein Total Protein 6.1 L Albumin 2.7 L 3.0 L Arterial Blood Glucose Coronavirus (PCR) 12/14/20 12/14/20 12/15/20 13:54 13:54 04:37 WBC RBC Hgb Hct MCV MCH MCHC RDW Plt Count [place] # (Auto) Seg Neutrophils % Seg Neuts % (Manual) Lymphocytes % (Manual) Nucleated RBC % Seg Neutrophils # Seg Neutrophils # Man Lymphocytes # (Manual) Monocytes # (Manual) PT INR D-Dimer 806.70 H POC ABG pO2 ABG Hemoglobin ABG Oxyhemoglobin ABG Potassium ABG Chloride ABG Glucose Potassium Chloride BUN Creatinine Glucose Lactic Acid Calcium Ferritin Total Bilirubin Direct Bilirubin 0.3 H AST 97 H ALT 281 H Alkaline Phosphatase 553 H Lactate Dehydrogenase C-Reactive Protein 1.70 H Total Protein 6.2 L Albumin 2.8 L Arterial Blood Glucose Coronavirus (PCR) 12/15/20 12/25/20 12/25/20 04:37 07:42 07:42 WBC 11.6 H RBC 5.13 H Hgb 9.2 L Hct MCV 64 L MCH 18 L MCHC 28 L RDW 28.1 H Plt Count [place] # (Auto) Seg Neutrophils % Seg Neuts % (Manual) Lymphocytes % (Manual) Nucleated RBC % Seg Neutrophils # Seg Neutrophils # Man Lymphocytes # (Manual) Monocytes # (Manual) PT INR D-Dimer 660.07 H POC ABG pO2 ABG Hemoglobin ABG Oxyhemoglobin ABG Potassium ABG Chloride ABG Glucose Potassium Chloride BUN 19 H Creatinine 0.4 L Glucose 107 H Lactic Acid Calcium Ferritin Total Bilirubin Direct Bilirubin AST 71 H ALT 101 H Alkaline Phosphatase 388 H Lactate Dehydrogenase C-Reactive Protein Total Protein Albumin 3.1 L Arterial Blood Glucose Coronavirus (PCR) 12/27/20 12/27/20 05:52 05:53 WBC RBC Hgb 8.3 L Hct 29.1 L MCV 62 L MCH 18 L MCHC 29 L RDW 28.2 H Plt Count [place] # (Auto) Seg Neutrophils % Seg Neuts % (Manual) Lymphocytes % (Manual) Nucleated RBC % Seg Neutrophils # Seg Neutrophils # Man Lymphocytes # (Manual) Monocytes # (Manual) PT INR D-Dimer POC ABG pO2 ABG Hemoglobin ABG Oxyhemoglobin ABG Potassium ABG Chloride ABG Glucose Potassium Chloride BUN Creatinine 0.3 L Glucose 101 H Lactic Acid Calcium Ferritin Total Bilirubin Direct Bilirubin AST ALT 80 H Alkaline Phosphatase 393 H Lactate Dehydrogenase C-Reactive Protein Total Protein Albumin 3.2 L Arterial Blood Glucose Coronavirus (PCR) Allied health notes reviewed: nursing
[2020-12-28] MEDS: ENOXAPARIN 80 MG/0.8 ML INJ SUB-Q SCH ×2 (10:20→21:31)
[2020-12-28] MEDS: ZINC SULFATE 220 MG CAP PO SCH (10:20)
[2020-12-28] MEDS: CHOLECALCIFEROL (VIT D3) 1000 UNIT (25 mcg) TAB PO SCH (10:20)
[2020-12-28] MEDS: FAMOTIDINE 20 MG TAB PO SCH ×2 (10:20→21:31)
[2020-12-28] MEDS: ASCORBIC ACID 500 MG TAB PO SCH ×2 (10:20→21:31)
[2020-12-28] MEDS: LISINOPRIL 20 MG TAB PO SCH (11:22)
--- NOTE | 2020-12-28 12:46 | Progress Note ---
Assessment and Plan Assessment and plan: 50-year-old female with history of hypertension was brought to the emergency room because of shortness of breath, cough, fever, Covid positive. Patient was diagnosed with COVID-19 1 week ago. Since then patient complained of worsening shortness of breath. Patient states she has not seen a physician for this. Patient states she does not take any medicine. Patient states the fever is fluctuating. Patient states it responds well to Tylenol. Patient states her cough is dry. Patient states she has not been vaccinated for COVID-19. Patient complains of chills. Patient denies nausea vomiting. Patient denies diarrhea. Patient denies abdominal pain. Patient denies chest pain. Patient's ox saturation was 82%. Patient was found to have acute respiratory failure. Patient WBC 17.0 and chest x-ray shows pneumonia secondary to Covid. Patient was put on BiPAP 12/09/2020 -Patient was on BiPAP with FiO2 of 100%, patient desaturated when she was off BiPAP momentarily. I put her on D5 half-normal saline for maintenance. Titrate oxygen as tolerated. -Pulmonary consulted, ID consulted. -Patient has elevated ALT and AST and is not a candidate for remdesivir. -Patient is on IV antibiotics and procalcitonin level is elevated, ID recommends to continue with IV antibiotics. ID said patient is not a candidate for Actemra because of the infection with elevated procalcitonin level. 12/10; Patient is on BiPAP, on Decadron. Remdesivir discontinued due to elevated liver enzymes. Patient not a candidate for Actemra because patient has elevated procalcitonin level. Continue with IV antibiotics. Prognosis is guarded. 12/11 Patient is A&O,A&O, c/o weakness and feels tired. C/O shortness of breath. requesting stool sofner. She denies f/c/CP/N/abd. pain 12/12: Continue supportive care. Wean oxygen as tolerated. Will obtain pulmonary consult will evaluate for possible Lasix therapy. Noted anemia with hemoglobin of 8.1 will monitor this closely. D-dimer is elevated so is AST and ALT and alk phos. This may preclude use of medications such as remdesivir which has been discontinued in relation to this. Patient remains critically ill. 12/13: Patient showing some improve, still with BiPAP requirements, continue supportive care, continued sterods, Remdesivr per ID, monitor renal function closely and LFT. wean oxygen as tolerated. Prognosis guarded 12/14: Patient seen and examined, she is showing good improvement, down to 10 liters except that she gets anxious. I spoke extensively with the family and updated them on her clinical condition 12/15: Patient continues to show good improvement, weaned down to 5L of oxygen with saturation of 99%. Will transfer to Medical floor and continue current management. 12/16: Patient was doing well this am, on 5 liters and sating 95%, later desated and was placed back on BIPAP. reassurance and counselling provided 12/17: Patient remains on oxygen high flow. I believe that she will be able to be weaned if she if we can control her anxiety. Discussed with nursing staff at bedside also discussed with the patient. Will begin LTAC referral in a.m. 12/18/20 patient is seen and examined. Less shortness of breath. No chest pain. Anxious. Is on high flow oxygen at 40 L with 75% FiO2. We cut down the FiO2 75% from 80%. Wean oxygen. Continue current management. LTAC referral 12/19: Ms. Jarrett continues to show some improvement, She is currently on 70% FIO2 and satting 99%. Discussed with respiratory therapist will try to wean down further. Will transfer to [facility]. Continue to encourage slow deep breaths. Continue to use anxiolytics. Awaiting LTAC approval. Continue to monitor hemoglobin. 12/20: Patient seen and examined, patient needs to continue weaning of oxygen, satting 98% on 70%FIO2. Her anxiety level is improving, can transfer to [facility] 12/21: Patient showing good disposition. Currently FiO2 is down to 50% with saturation of 96% we will continue current management. Continue to encourage prone position. 12/22: Patient seen and examined this morning actually doing well. She is down to 3 L with a sat of 94%. She unfortunately has bouts of anxiety relative to the loss of her parents due to COVID-19 who unfortunately have not been buried and this makes her oxygen demand go up but while she comes down she is able to do well at 3 L. I think psychologically she will benefit from being discharged in 24 to 48 hours if her oxygen continues to improve she likely will need home oxygen as her history and as a result a walk test prior to discharge is appropriate. I also discussed with her brother who is also requested that tomorrow we will give an update to the sister about her condition prior to discharge. I have placed a walk test for tomorrow and have discussed with nursing staff also 12/23; patient was on 4L of oxygen saturating 95%. Patient has bouts of anxiety and on 0.25 mg of Xanax as needed. We will do home O2 evaluation and possible discharge today. Patient need PT OT evaluation. Will discuss with case management about her concerns stairs in her house. 12/24; patient was on 5 L of oxygen. Patient need PT OT evaluation. Try to call her brother yesterday but he could not pick and shovel man his phone. Patient is deconditioned and very weak. Patient may need rehab after evaluated by PT OT. (1) Acute hypoxic respiratory failure 2/2 Covid 19 PNA pulmonary note reviewed Patient is on 5 L via nasal cannula (2) COVID-19 pneumonia Current Visit: Yes Status: Acute Plan to address problem: ID note reviewed inflammatory markers reviewed-improving Completed Decadron and remdesivir course 3. Severe sepsis procalcitonin results reviewed ID note reviewed Off antibiotics 4) leukocytosis improved (5) Hypertension Current Visit: Yes Status: Acute Plan to address problem: Hydralazine 10 mg IV every 6 hours as needed she has no hx of HTN 6) Transaminitis: results reviewed-improving well cont. to monitor (7) anemia Normocytic type H&H stable (8) Anxiety Continue alprazolam as needed 12/09/2020 -Patient was on BiPAP with FiO2 of 100%, patient desaturated when she was off BiPAP momentarily. I put her on D5 half-normal saline for maintenance. Titrate oxygen as tolerated. -Pulmonary consulted, ID consulted. -Patient has elevated ALT and AST and is not a candidate for remdesivir. -Patient is on IV antibiotics and procalcitonin level is elevated, ID recommends to continue with IV antibiotics. ID said patient is not a candidate for Actemra because of the infection with elevated procalcitonin level. 12/10; Patient is on BiPAP, on Decadron. Remdesivir discontinued due to elevated liver enzymes. Patient not a candidate for Actemra because patient has elevated procalcitonin level. Continue with IV antibiotics. Prognosis is guarded. 12/11 Patient is A&O,A&O, c/o weakness and feels tired. C/O shortness of breath. requesting stool sofner. She denies f/c/CP/N/abd. pain 12/12: Continue supportive care. Wean oxygen as tolerated. Will obtain pulmonary consult will evaluate for possible Lasix therapy. Noted anemia with hemoglobin of 8.1 will monitor this closely. D-dimer is elevated so is AST and ALT and alk phos. This may preclude use of medications such as remdesivir which has been discontinued in relation to this. Patient remains critically ill. 12/13: Patient showing some improve, still with BiPAP requirements, continue supportive care, continued sterods, Remdesivr per ID, monitor renal function closely and LFT. wean oxygen as tolerated. Prognosis guarded 12/14: Patient seen and examined, she is showing good improvement, down to 10 liters except that she gets anxious. I spoke extensively with the family and updated them on her clinical condition 12/15: Patient continues to show good improvement, weaned down to 5L of oxygen with saturation of 99%. Will transfer to Medical floor and continue current management. 12/16: Patient was doing well this am, on 5 liters and sating 95%, later desated and was placed back on BIPAP. reassurance and counselling provided 12/17: Patient remains on oxygen high flow. I believe that she will be able to be weaned if she if we can control her anxiety. Discussed with nursing staff at bedside also discussed with the patient. Will begin LTAC referral in a.m. 12/18/20 patient is seen and examined. Less shortness of breath. No chest pain. Anxious. Is on high flow oxygen at 40 L with 75% FiO2. We cut down the FiO2 75% from 80%. Wean oxygen. Continue current management. LTAC referral 12/19: Ms. Jarrett continues to show some improvement, She is currently on 70% FIO2 and satting 99%. Discussed with respiratory therapist will try to wean down further. Will transfer to [facility]. Continue to encourage slow deep breaths. Continue to use anxiolytics. Awaiting LTAC approval. Continue to monitor hemoglobin. 12/20: Patient seen and examined, patient needs to continue weaning of oxygen, satting 98% on 70%FIO2. Her anxiety level is improving, can transfer to [facility] 12/21: Patient showing good disposition. Currently FiO2 is down to 50% with saturation of 96% we will continue current management. Continue to encourage prone position. 12/22: Patient seen and examined this morning actually doing well. She is down to 3 L with a sat of 94%. She unfortunately has bouts of anxiety relative to the loss of her parents due to COVID-19 who unfortunately have not been buried and this makes her oxygen demand go up but while she comes down she is able to do well at 3 L. I think psychologically she will benefit from being discharged in 24 to 48 hours if her oxygen continues to improve she likely will need home oxygen as her history and as a result a walk test prior to discharge is appropriate. I also discussed with her brother who is also requested that tomorrow we will give an update to the sister about her condition prior to discharge. I have placed a walk test for tomorrow and have discussed with nursing staff also 12/23; patient was on 4L of oxygen saturating 95%. Patient has bouts of anxiety and on 0.25 mg of Xanax as needed. We will do home O2 evaluation and possible discharge today. Patient need PT OT evaluation. Will discuss with case management about her concerns stairs in her house. 12/24; patient was on 5 L of oxygen. Patient need PT OT evaluation. Try to call her brother yesterday but he could not pick and shovel man his phone. Patient is deconditioned and very weak. Patient may need rehab after evaluated by PT OT. 12/25 patient is alert and oriented and complains of weakness and feeling tired, also complains of coughing spells and feels short of breath with mild effort She denies any fever or chills, denies chest pain, abdominal pain or dysuria. Lab results reviewed 12/26 patient is alert and oriented and on 5 L oxygen via nasal cannula. Complains of cough and shortness of breath with minimal effort and desaturates with mild effort. Also complains of anxiety and depression lab results reviewed. Pulmonary note reviewed 12/27: Patient clinical stable this morning, anxiously waiting to be discharged, i found her on 3 liters of oxygen and with no distress. I did have extensive conversation with her about her medical condition and critical factors to monitor for she states that she already has home oxygen and also has a pulse oximeter which she will monitor daily. Discussed with Rehab, patient will need SNF as she destaurates with exertion and has no one to care for her at home. Also she has no one at home to help her. 12/28: Patient still requires aggressive rehab and physical therapy unfortunately. Source precludes. Case management to discuss with family to see if there is any family member that can take her to their home while we look for other options. Continue oxygen therapy daily ambulation and once clinically stable can be discharged History Interval history: Patient seen and examined showing some improvement, remains on 3 L no clinical change. Exertional dyspnea persist Hospitalist Physical - Physical exam Narrative exam: VITAL SIGNS: Reviewed. GENERAL: The patient appears normally developed, mild shortness of breath much improved compared to prior improving, vital signs as documented. HEAD: No signs of head trauma. EYES: Pupils are equal. Extraocular motions intact. EARS: Hearing grossly intact. MOUTH: Oropharynx is normal. NECK: No adenopathy, no JVD. CHEST: Chest with diminished breath sounds bilaterally. No wheezes, rales, or rhonchi. CARDIAC: Regular rate and rhythm. S1 and S2, without murmurs, gallops, or rubs. VASCULAR: No Edema. Peripheral pulses normal and equal in all extremities. ABDOMEN: Soft, non tender and non distended. No rebound or guarding, and no masses palpated. Bowel Sounds normal. MUSCULOSKELETAL: Good range of motion of all major joints. Extremities without clubbing, cyanosis or edema. NEUROLOGIC EXAM: Alert and oriented x 3, No focal sensory or strength deficits. Speech normal. Follows commands. PSYCHIATRIC: Mood normal not at the moment SKIN: detail exam as documented in skin assessment - Constitutional Vitals: Temp Pulse Resp BP Pulse Ox 98.4 F 94 H 20 108/70 97 12/28/20 05:14 12/28/20 11:22 12/28/20 05:14 12/28/20 11:22 12/28/20 05:14 General appearance: Present: no acute distress Results - Labs CBC & Chem 7: 12/27/20 05:53 12/27/20 05:52 Labs: Laboratory Last Values WBC 7.5 K/mm3 (4.5-11.0) 12/27/20 05:53 RBC 4.70 M/mm3 (3.65-5.03) 12/27/20 05:53 Hgb 8.3 gm/dl (10.1-14.3) L 12/27/20 05:53 Hct 29.1 % (30.3-42.9) L 12/27/20 05:53 MCV 62 fl (79-97) L 12/27/20 05:53 MCH 18 pg (28-32) L 12/27/20 05:53 MCHC 29 % (30-34) L 12/27/20 05:53 RDW 28.2 % (13.2-15.2) H 12/27/20 05:53 Plt Count 176 K/mm3 (140-440) 12/27/20 05:53 [place] % (Auto) 6.0 % (0.0-7.3) 12/09/20 04:33 [place] # (Auto) 1.3 K/mm3 (0.0-0.8) H 12/09/20 04:33 Add Manual Diff Complete 12/12/20 05:01 Total Counted 100 12/12/20 05:01 Seg Neutrophils % 84.3 % (40.0-70.0) H 12/09/20 04:33 Seg Neuts % (Manual) 83.0 % (40.0-70.0) H 12/12/20 05:01 Band Neutrophils % 3.0 % 12/09/20 04:33 Lymphocytes % (Manual) 10.0 % (13.4-35.0) L 12/12/20 05:01 Monocytes % (Manual) 7.0 % (0.0-7.3) 12/12/20 05:01 Metamyelocytes % 1.0 % 12/08/20 00:15 Nucleated RBC % 2.0 % (0.0-0.9) H 12/12/20 05:01 Seg Neutrophils # 17.8 K/mm3 (1.8-7.7) H 12/09/20 04:33 Seg Neutrophils # Man 12.7 K/mm3 (1.8-7.7) H 12/12/20 05:01 Band Neutrophils # 0.0 K/mm3 12/12/20 05:01 Lymphocytes # (Manual) 1.5 K/mm3 (1.2-5.4) 12/12/20 05:01 Abs React Lymphs (Man) 0.0 K/mm3 12/12/20 05:01 Monocytes # (Manual) 1.1 K/mm3 (0.0-0.8) H 12/12/20 05:01 Eosinophils # (Manual) 0.0 K/mm3 (0.0-0.4) 12/12/20 05:01 Basophils # (Manual) 0.0 K/mm3 (0.0-0.1) 12/12/20 05:01 Metamyelocytes # 0.0 K/mm3 12/12/20 05:01 Myelocytes # 0.0 K/mm3 12/12/20 05:01 Promyelocytes # 0.0 K/mm3 12/12/20 05:01 Blast Cells # 0.0 K/mm3 12/12/20 05:01 WBC Morphology Not Reportable 12/12/20 05:01 Hypersegmented Neuts Not Reportable 12/12/20 05:01 Hyposegmented Neuts Not Reportable 12/12/20 05:01 Hypogranular Neuts Not Reportable 12/12/20 05:01 Smudge Cells Not Reportable 12/12/20 05:01 Toxic Granulation Not Reportable 12/12/20 05:01 Toxic Vacuolation Not Reportable 12/12/20 05:01 Dohle Bodies Not Reportable 12/12/20 05:01 Pelger-Huet Anomaly Not Reportable 12/12/20 05:01 Lauryn Rods Not Reportable 12/12/20 05:01 Platelet Estimate Consistent w auto 12/12/20 05:01 Clumped Platelets Not Reportable 12/12/20 05:01 Plt Clumps, EDTA Not Reportable 12/12/20 05:01 Large Platelets Not Reportable 12/12/20 05:01 Giant Platelets Not Reportable 12/12/20 05:01 Platelet Satelliting Not Reportable 12/12/20 05:01 Plt Morphology Comment Not Reportable 12/12/20 05:01 RBC Morphology Not Reportable 12/12/20 05:01 Dimorphic RBCs Not Reportable 12/12/20 05:01 Polychromasia Not Reportable 12/12/20 05:01 Hypochromasia 3+ 12/12/20 05:01 Poikilocytosis 1+ 12/12/20 05:01 Anisocytosis 2+ 12/12/20 05:01 Microcytosis 2+ 12/12/20 05:01 Macrocytosis Not Reportable 12/12/20 05:01 Spherocytes Not Reportable 12/12/20 05:01 Pappenheimer Bodies Not Reportable 12/12/20 05:01 Sickle Cells Not Reportable 12/12/20 05:01 Target Cells Not Reportable 12/12/20 05:01 Tear Drop Cells Few 12/12/20 05:01 Ovalocytes Few 12/12/20 05:01 Helmet Cells Not Reportable 12/12/20 05:01 [place] Bodies Not Reportable 12/12/20 05:01 [place] Rings Not Reportable 12/12/20 05:01 Jens Cells Not Reportable 12/12/20 05:01 Bite Cells Not Reportable 12/12/20 05:01 Crenated Cell Not Reportable 12/12/20 05:01 Elliptocytes Few 12/12/20 05:01 Acanthocytes (Spur) Not Reportable 12/12/20 05:01 Rouleaux Not Reportable 12/12/20 05:01 Hemoglobin C Crystals Not Reportable 12/12/20 05:01 Schistocytes Not Reportable 12/12/20 05:01 Malaria parasites Not Reportable 12/12/20 05:01 Brant Bodies Not Reportable 12/12/20 05:01 Hem Pathologist Commnt No 12/12/20 05:01 PT 16.4 Sec. (12.2-14.9) H 12/08/20 00:15 INR 1.27 (0.87-1.13) H 12/08/20 00:15 APTT 29.6 Sec. (24.2-36.6) 12/08/20 00:15 D-Dimer 660.07 ng/mlDDU (0-234) H 12/15/20 04:37 ABG pH 7.449 (7.320-7.450) 12/10/20 08:45 POC ABG pCO2 36.5 mmHg (32.0-48.0) 12/10/20 08:45 POC ABG pO2 64.5 mmHg (83-108) L 12/10/20 08:45 POC ABG HCO3 24.7 12/10/20 08:45 ABG O2 Saturation 91.0 (0-100) 12/10/20 08:45 POC ABG Base Excess 0.8 12/10/20 08:45 ABG Hemoglobin 7.6 (12.0-17.5) L 12/10/20 08:45 ABG Oxyhemoglobin 90.2 (94-98) L 12/10/20 08:45 ABG Methemoglobin 0.1 (0.0-1.5) 12/10/20 08:45 ABG Sodium 139.9 mmol/L (136.0-145.0) 12/10/20 08:45 ABG Potassium 3.3 mmol/L (3.40-4.50) L 12/10/20 08:45 ABG Chloride 108.0 mmol/L (98-107) H 12/10/20 08:45 ABG Glucose 126 mg/dL (65-95) H 12/10/20 08:45 Carboxyhemoglobin 0.8 (0.5-1.5) 12/10/20 08:45 FiO2 % 35.0 12/10/20 08:45 Sodium 138 mmol/L (137-145) 12/27/20 05:52 Potassium 3.7 mmol/L (3.6-5.0) 12/27/20 05:52 Chloride 102.4 mmol/L (98-107) 12/27/20 05:52 Carbon Dioxide 25 mmol/L (22-30) 12/27/20 05:52 Anion Gap 14 mmol/L 12/27/20 05:52 BUN 13 mg/dL (7-17) 12/27/20 05:52 Creatinine 0.3 mg/dL (0.6-1.2) L 12/27/20 05:52 Estimated GFR > 60 ml/min 12/27/20 05:52 BUN/Creatinine Ratio 43 % 12/27/20 05:52 Glucose 101 mg/dL (65-100) H 12/27/20 05:52 Lactic Acid 2.50 mmol/L (0.7-2.0) H* 12/11/20 12:38 Calcium 9.3 mg/dL (8.4-10.2) 12/27/20 05:52 Ferritin 147.8 ng/mL (10.0-200.0) 12/15/20 04:37 Total Bilirubin 0.50 mg/dL (0.1-1.2) 12/27/20 05:52 Direct Bilirubin 0.3 mg/dL (0-0.2) H 12/15/20 04:37 Indirect Bilirubin 0.3 mg/dL 12/15/20 04:37 AST 35 units/L (5-40) 12/27/20 05:52 ALT 80 units/L (7-56) H 12/27/20 05:52 Alkaline Phosphatase 393 units/L (35-129) H 12/27/20 05:52 Lactate Dehydrogenase 511 units/L (91-180) H 12/12/20 05:01 C-Reactive Protein 1.20 mg/dL (0.00-1.30) 12/15/20 04:37 Total Protein 7.1 g/dL (6.3-8.2) 12/27/20 05:52 Albumin 3.2 g/dL (3.9-5) L 12/27/20 05:52 Albumin/Globulin Ratio 0.8 % 12/27/20 05:52 Procalcitonin 0.83 ng/mL (<0.15) 12/15/20 04:37 Arterial Blood Glucose 126 mg/dL (65-95) H 12/10/20 08:45 Coronavirus (PCR) Positive (Negative) A 12/08/20 10:30 Hepatitis A IgM Ab Non-reactive (NonReactive) 12/13/20 07:25 Hep Bs Antigen Nonreactive (Negative) 12/13/20 07:25 Hep B Core IgM Ab Non-reactive (NonReactive) 12/13/20 07:25 Hepatitis C Antibody Non-reactive (NonReactive) 12/13/20 07:25 Kilpatrick/IV: Voiding Method Bedside Commode Active Medications - Current Medications Current Medications: Generic Name Dose Route Start Last Admin Trade Name Freq PRN Reason Stop Dose Admin Acetaminophen 650 mg 12/08/20 05:31 12/27/20 21:54 Acetaminophen 325 Mg Tab PO 650 mg Q4H PRN Administration Pain MILD(1-3)/Fever >100.5/[place] Albuterol 2.5 mg 12/08/20 05:31 Albuterol 2.5 Mg/3 Ml Nebu IH Q4HRT PRN Shortness Of Breath Alprazolam 0.25 mg 12/16/20 13:09 12/27/20 21:55 Alprazolam 0.25 Mg Tab PO 0.25 mg Q6H PRN Administration Anxiety Ascorbic Acid 500 mg 12/09/20 10:00 12/28/20 10:20 Ascorbic Acid 500 Mg Tab PO 500 mg BID DARIAN Administration Cholecalciferol 1,000 unit 12/09/20 10:00 12/28/20 10:20 Cholecalciferol (Vit D3) 1000 Unit (25 Mcg) Tab PO 1,000 unit QDAY DARIAN Administration Enoxaparin Sodium 80 mg 12/26/20 22:00 12/28/20 10:20 Enoxaparin 80 Mg/0.8 Ml Inj SUB-Q 80 mg Q12HR DARIAN Administration Famotidine 20 mg 12/08/20 10:00 12/28/20 10:20 Famotidine 20 Mg Tab PO 20 mg BID DARIAN Administration Hydromorphone HCl 0.5 mg 12/08/20 05:31 12/25/20 22:11 Hydromorphone 1 Mg/1 Ml Inj IV 0.5 mg Q3H PRN Administration Pain , Severe (7-10) Lisinopril 20 mg 12/15/20 19:00 12/28/20 11:22 Lisinopril 20 Mg Tab PO 20 mg QDAY DARIAN Administration Ondansetron HCl 4 mg 12/08/20 05:31 Ondansetron 4 Mg/2 Ml Inj IV Q8H PRN Nausea And Vomiting Oxycodone/Acetaminophen 1 tab 12/08/20 05:31 12/26/20 18:18 Oxycodone /Acetaminophen 5-325mg Tab PO 1 tab Q6H PRN Administration Pain, Moderate (4-6) Polyethylene Glycol 17 gm 12/11/20 15:53 Polyethylene Glycol 3350 17 Gm Powder PO QDAY PRN Constipation Promethazine HCl 12.5 mg 12/20/20 21:54 Promethazine 12.5 Mg/10 Ml Oral Liqd PO Q6H PRN Nausea And Vomiting Pseudoephedrine/Acetam/Chlorphenir 10 ml 12/25/20 13:00 12/28/20 06:03 Guaifenesin/Codeine 100-10mg Oral Liqd 5 Ml PO 12/29/20 12:59 10 ml Q6H DARIAN Administration Sodium Chloride 10 ml 12/08/20 10:00 12/28/20 10:20 Sodium Chloride 0.9% 10 Ml Flush Syringe IV 10 ml BID DARIAN Administration Sodium Chloride 10 ml 12/08/20 05:31 Sodium Chloride 0.9% 10 Ml Flush Syringe IV PRN PRN LINE FLUSH Zinc Sulfate 220 mg 12/09/20 10:00 12/28/20 10:20 Zinc Sulfate 220 Mg Cap PO 220 mg QDAY DARIAN Administration Nutrition/Malnutrition Assess - Dietary Evaluation Nutrition/Malnutrition Findings: Nutrition Notes Start: 12/18/20 14:21 Freq: Status: Active Protocol: Document 12/18/20 14:21 ARCHIE (Rec: 12/18/20 14:22 [id number]) Nutrition Notes Need for Assessment generated from: LOS Initial or Follow up Brief Note Subjective/Other Information Pt eating 100% of meals. Nutrition Intervention Revisit per MD consult or patient Sign Off request:
[2020-12-28] MEDS: oxyCODONE /ACETAMINOPHEN 5-325MG TAB PO PRN (16:43)
[2020-12-29] MEDS: ACETAMINOPHEN 325 MG TAB PO PRN (01:04)
[2020-12-29] MEDS: guaiFENesin/CODEINE 100-10MG ORAL LIQD 5 ML PO SCH ×2 (01:04→10:46)
--- NOTE | 2020-12-29 09:20 | Progress Note ---
Assessment and Plan Acute hypoxemic respiratory failure COVID-19 infection Bilateral pneumonia Elevated serum transaminases Sepsis Anemia that is microcytic Thrombocytosis Lactic acidosis - discharge planning ongoing concurrently - home oxygen evaluation at discharge - prn CXR's & ABG's at this point - no new issues otherwise, watch closely but continue care as below; - continue awake proning - continue to wean supplemental oxygen for target O2 sat's > 92% acutely - continue aspiration precautions - bronchodilators with pulmonary hygiene per RT - avoid nephrotoxins, renally dose all medications - avoid benzodiazepine's, reduce the possibility of delirium - complete antiinfective's per ID rec's - prn analgesia per pain score - Maintenance of sleep-wake cycle, avoid delirium - G.I. & VTE prophylaxis - PT/OT/ROM exercises - continue mobility protocols for pressure ulcer prophylaxis - Monitor hemodynamics closely - continue other care per attending / other consultants COVID SPECIFIC INTERVENTIONS - Remdesivir as per ID/Pulmonary developed protocols (not a candidate re: LFT's) - continue systemic steroids for severe COVID-19 infection - follow repeat COVID tests results - zinc and vitamin C supplementation - Monitor inflammatory markers per facility protocol - ferritin, Ddimer, CRP - therapeutic anticoagulation per system Protocol based on d-dimer and clinical considerations (VTE prophylaxis) - Continue contact and airborne isolation .... Re-evaluate in am & prn Subjective Date of service: 12/29/20 Principal diagnosis: Ac hypoxemic resp failure; COVID-19 infxn; Pneumonia; Sepsis Interval history: Patient is seen today for: Acute hypoxemic respiratory failure; COVID-19 infection; Bilateral pneumonia; Elevated serum transaminases; Sepsis; Lactic acidosis Seen and examined at bedside; 24hour events reviewed; nursing and respiratory care staff consulted; no adverse overnight events reported to me; resting in bed; feels better; FiO2 down to 32%; PT/OT coming along; denies N/V/F/C Objective Vital Signs - 12hr 12/28/20 12/29/20 12/29/20 22:00 00:00 01:04 Temperature Pulse Rate 91 H Respiratory 21 22 Rate Respiratory 19 Rate [Right Chest] Blood Pressure O2 Sat by Pulse 96 Oximetry 12/29/20 12/29/20 02:04 05:34 Temperature 98.2 F Pulse Rate 79 Respiratory 19 20 Rate Respiratory Rate [Right Chest] Blood Pressure 95/57 O2 Sat by Pulse 100 Oximetry Constitutional: no acute distress, other (middle aged female without increased respiratory effort at rest) Eyes: non-icteric ENT: oropharynx moist Neck: supple, no lymphadenopathy, no JVD Effort: normal Ascultation: Bilateral: clear Percussion: Bilateral: not dull Cardiovascular: regular rate and rhythm Gastrointestinal: normoactive bowel sounds, soft, non-tender, non-distended Integumentary: normal Extremities: no cyanosis, no edema, pulses normal, no ischemia or petechiae Neurologic: normal mental status, non-focal exam, pupils equal and round, CN II- XII normal, motor strength normal and Psychiatric: mood appropriate, affect normal CBC and BMP: 12/27/20 05:53 12/27/20 05:52 ABG, PT/INR, D-dimer: ABG ABG pH 7.449 (7.320-7.450) 12/10/20 08:45 POC ABG pCO2 36.5 mmHg (32.0-48.0) 12/10/20 08:45 POC ABG pO2 64.5 mmHg (83-108) L 12/10/20 08:45 POC ABG HCO3 24.7 12/10/20 08:45 ABG O2 Saturation 91.0 (0-100) 12/10/20 08:45 PT/INR, D-dimer PT 16.4 Sec. (12.2-14.9) H 12/08/20 00:15 INR 1.27 (0.87-1.13) H 12/08/20 00:15 D-Dimer 660.07 ng/mlDDU (0-234) H 12/15/20 04:37 Abnormal lab findings: Abnormal Labs 12/08/20 12/08/20 12/08/20 00:15 00:15 00:15 WBC 17.0 H RBC 5.40 H Hgb 8.3 L Hct 29.7 L MCV 55 L MCH 16 L MCHC 28 L RDW 25.0 H Plt Count 464 H [place] # (Auto) Seg Neutrophils % Seg Neuts % (Manual) 92.0 H Lymphocytes % (Manual) 1.0 L Nucleated RBC % Seg Neutrophils # Seg Neutrophils # Man 15.6 H Lymphocytes # (Manual) 0.2 L Monocytes # (Manual) PT 16.4 H INR 1.27 H D-Dimer 1129.87 H POC ABG pO2 ABG Hemoglobin ABG Oxyhemoglobin ABG Potassium ABG Chloride ABG Glucose Potassium 3.1 L Chloride BUN Creatinine Glucose 128 H Lactic Acid Calcium 8.3 L Ferritin Total Bilirubin 1.90 H Direct Bilirubin AST 309 H ALT 1384 H Alkaline Phosphatase 440 H Lactate Dehydrogenase C-Reactive Protein Total Protein Albumin 3.2 L Arterial Blood Glucose Coronavirus (PCR) 12/08/20 12/08/20 12/08/20 00:15 00:15 00:15 WBC RBC Hgb Hct MCV MCH MCHC RDW Plt Count [place] # (Auto) Seg Neutrophils % Seg Neuts % (Manual) Lymphocytes % (Manual) Nucleated RBC % Seg Neutrophils # Seg Neutrophils # Man Lymphocytes # (Manual) Monocytes # (Manual) PT INR D-Dimer POC ABG pO2 ABG Hemoglobin ABG Oxyhemoglobin ABG Potassium ABG Chloride ABG Glucose Potassium Chloride BUN Creatinine Glucose Lactic Acid 2.30 H* Calcium Ferritin 289.8 H Total Bilirubin Direct Bilirubin AST ALT Alkaline Phosphatase Lactate Dehydrogenase 608 H C-Reactive Protein 20.70 H Total Protein Albumin Arterial Blood Glucose Coronavirus (PCR) 12/08/20 12/08/20 12/08/20 02:16 09:49 10:30 WBC RBC Hgb Hct MCV MCH MCHC RDW Plt Count [place] # (Auto) Seg Neutrophils % Seg Neuts % (Manual) Lymphocytes % (Manual) Nucleated RBC % Seg Neutrophils # Seg Neutrophils # Man Lymphocytes # (Manual) Monocytes # (Manual) PT INR D-Dimer POC ABG pO2 ABG Hemoglobin ABG Oxyhemoglobin ABG Potassium ABG Chloride ABG Glucose Potassium Chloride BUN Creatinine Glucose Lactic Acid 2.50 H* 2.40 H* Calcium Ferritin Total Bilirubin Direct Bilirubin AST ALT Alkaline Phosphatase Lactate Dehydrogenase C-Reactive Protein Total Protein Albumin Arterial Blood Glucose Coronavirus (PCR) Positive A 12/09/20 12/09/20 12/09/20 04:33 04:33 09:13 WBC 21.0 H RBC 5.12 H Hgb 8.2 L Hct 29.1 L MCV 57 L MCH 16 L MCHC 28 L RDW 24.6 H Plt Count 509 H [place] # (Auto) 1.3 H Seg Neutrophils % 84.3 H Seg Neuts % (Manual) 93.0 H Lymphocytes % (Manual) 2.0 L Nucleated RBC % 2.0 H Seg Neutrophils # 17.8 H Seg Neutrophils # Man 19.5 H Lymphocytes # (Manual) 0.4 L Monocytes # (Manual) PT INR D-Dimer POC ABG pO2 ABG Hemoglobin ABG Oxyhemoglobin ABG Potassium ABG Chloride ABG Glucose Potassium 3.5 L Chloride BUN 30 H 29 H Creatinine Glucose 190 H 129 H Lactic Acid Calcium Ferritin Total Bilirubin Direct Bilirubin AST 276 H ALT 867 H Alkaline Phosphatase 685 H Lactate Dehydrogenase C-Reactive Protein Total Protein Albumin 3.1 L Arterial Blood Glucose Coronavirus (PCR) 12/09/20 12/10/20 12/10/20 19:16 05:04 05:04 WBC RBC Hgb Hct MCV MCH MCHC RDW Plt Count [place] # (Auto) Seg Neutrophils % Seg Neuts % (Manual) Lymphocytes % (Manual) Nucleated RBC % Seg Neutrophils # Seg Neutrophils # Man Lymphocytes # (Manual) Monocytes # (Manual) PT INR D-Dimer POC ABG pO2 ABG Hemoglobin ABG Oxyhemoglobin ABG Potassium ABG Chloride ABG Glucose Potassium 3.4 L Chloride BUN 25 H Creatinine Glucose 184 H Lactic Acid 2.80 H* 3.30 H* Calcium 7.9 L Ferritin Total Bilirubin Direct Bilirubin AST 277 H ALT 722 H Alkaline Phosphatase 773 H Lactate Dehydrogenase C-Reactive Protein Total Protein Albumin 2.9 L Arterial Blood Glucose Coronavirus (PCR) 12/10/20 12/10/20 12/10/20 08:11 08:45 11:15 WBC RBC Hgb Hct MCV MCH MCHC RDW Plt Count [place] # (Auto) Seg Neutrophils % Seg Neuts % (Manual) Lymphocytes % (Manual) Nucleated RBC % Seg Neutrophils # Seg Neutrophils # Man Lymphocytes # (Manual) Monocytes # (Manual) PT INR D-Dimer POC ABG pO2 64.5 L ABG Hemoglobin 7.6 L ABG Oxyhemoglobin 90.2 L ABG Potassium 3.3 L ABG Chloride 108.0 H ABG Glucose 126 H Potassium Chloride BUN Creatinine Glucose Lactic Acid 2.10 H* 2.40 H* Calcium Ferritin Total Bilirubin Direct Bilirubin AST ALT Alkaline Phosphatase Lactate Dehydrogenase C-Reactive Protein Total Protein Albumin Arterial Blood Glucose 126 H Coronavirus (PCR) 12/10/20 12/10/20 12/11/20 13:36 19:13 00:49 WBC RBC Hgb Hct MCV MCH MCHC RDW Plt Count [place] # (Auto) Seg Neutrophils % Seg Neuts % (Manual) Lymphocytes % (Manual) Nucleated RBC % Seg Neutrophils # Seg Neutrophils # Man Lymphocytes # (Manual) Monocytes # (Manual) PT INR D-Dimer POC ABG pO2 ABG Hemoglobin ABG Oxyhemoglobin ABG Potassium ABG Chloride ABG Glucose Potassium 3.4 L Chloride BUN Creatinine Glucose Lactic Acid 3.40 H* 2.30 H* Calcium Ferritin Total Bilirubin Direct Bilirubin AST ALT Alkaline Phosphatase Lactate Dehydrogenase C-Reactive Protein Total Protein Albumin Arterial Blood Glucose Coronavirus (PCR) 12/11/20 12/11/20 12/11/20 05:34 05:34 10:06 WBC RBC Hgb Hct MCV MCH MCHC RDW Plt Count [place] # (Auto) Seg Neutrophils % Seg Neuts % (Manual) Lymphocytes % (Manual) Nucleated RBC % Seg Neutrophils # Seg Neutrophils # Man Lymphocytes # (Manual) Monocytes # (Manual) PT INR D-Dimer POC ABG pO2 ABG Hemoglobin ABG Oxyhemoglobin ABG Potassium ABG Chloride ABG Glucose Potassium Chloride 108.1 H BUN Creatinine 0.4 L Glucose 160 H Lactic Acid 2.30 H* 2.90 H* Calcium 8.3 L Ferritin Total Bilirubin Direct Bilirubin AST 249 H ALT 589 H Alkaline Phosphatase 701 H Lactate Dehydrogenase C-Reactive Protein Total Protein 5.9 L Albumin 3.0 L Arterial Blood Glucose Coronavirus (PCR) 12/11/20 12/11/20 12/11/20 12:38 12:38 12:38 WBC RBC Hgb Hct MCV MCH MCHC RDW Plt Count [place] # (Auto) Seg Neutrophils % Seg Neuts % (Manual) Lymphocytes % (Manual) Nucleated RBC % Seg Neutrophils # Seg Neutrophils # Man Lymphocytes # (Manual) Monocytes # (Manual) PT INR D-Dimer 725.41 H POC ABG pO2 ABG Hemoglobin ABG Oxyhemoglobin ABG Potassium ABG Chloride ABG Glucose Potassium Chloride BUN Creatinine Glucose Lactic Acid 2.50 H* Calcium Ferritin Total Bilirubin Direct Bilirubin AST ALT Alkaline Phosphatase Lactate Dehydrogenase 447 H C-Reactive Protein 2.90 H Total Protein Albumin Arterial Blood Glucose Coronavirus (PCR) 12/12/20 12/12/20 12/12/20 05:01 05:01 05:01 WBC 15.3 H RBC Hgb 8.1 L Hct 28.4 L MCV 57 L MCH 16 L MCHC 29 L RDW 25.0 H Plt Count 809 H [place] # (Auto) Seg Neutrophils % Seg Neuts % (Manual) 83.0 H Lymphocytes % (Manual) 10.0 L Nucleated RBC % 2.0 H Seg Neutrophils # Seg Neutrophils # Man 12.7 H Lymphocytes # (Manual) Monocytes # (Manual) 1.1 H PT INR D-Dimer 752.84 H POC ABG pO2 ABG Hemoglobin ABG Oxyhemoglobin ABG Potassium ABG Chloride ABG Glucose Potassium Chloride BUN 20 H Creatinine 0.4 L Glucose 120 H Lactic Acid Calcium Ferritin Total Bilirubin Direct Bilirubin AST 121 H ALT 469 H Alkaline Phosphatase 633 H Lactate Dehydrogenase 511 H C-Reactive Protein 3.50 H Total Protein Albumin 3.1 L Arterial Blood Glucose Coronavirus (PCR) 12/13/20 12/13/20 12/14/20 07:25 07:25 13:54 WBC 11.2 H RBC Hgb 7.2 L Hct 24.3 L MCV 57 L MCH 17 L MCHC RDW 25.5 H Plt Count 634 H [place] # (Auto) Seg Neutrophils % Seg Neuts % (Manual) Lymphocytes % (Manual) Nucleated RBC % Seg Neutrophils # Seg Neutrophils # Man Lymphocytes # (Manual) Monocytes # (Manual) PT INR D-Dimer POC ABG pO2 ABG Hemoglobin ABG Oxyhemoglobin ABG Potassium ABG Chloride ABG Glucose Potassium Chloride 107.6 H BUN 25 H Creatinine 0.4 L Glucose 132 H Lactic Acid Calcium Ferritin Total Bilirubin Direct Bilirubin 0.3 H 0.4 H AST 72 H 115 H ALT 295 H 318 H Alkaline Phosphatase 466 H 617 H Lactate Dehydrogenase C-Reactive Protein Total Protein 6.1 L Albumin 2.7 L 3.0 L Arterial Blood Glucose Coronavirus (PCR) 12/14/20 12/14/20 12/15/20 13:54 13:54 04:37 WBC RBC Hgb Hct MCV MCH MCHC RDW Plt Count [place] # (Auto) Seg Neutrophils % Seg Neuts % (Manual) Lymphocytes % (Manual) Nucleated RBC % Seg Neutrophils # Seg Neutrophils # Man Lymphocytes # (Manual) Monocytes # (Manual) PT INR D-Dimer 806.70 H POC ABG pO2 ABG Hemoglobin ABG Oxyhemoglobin ABG Potassium ABG Chloride ABG Glucose Potassium Chloride BUN Creatinine Glucose Lactic Acid Calcium Ferritin Total Bilirubin Direct Bilirubin 0.3 H AST 97 H ALT 281 H Alkaline Phosphatase 553 H Lactate Dehydrogenase C-Reactive Protein 1.70 H Total Protein 6.2 L Albumin 2.8 L Arterial Blood Glucose Coronavirus (PCR) 12/15/20 12/25/20 12/25/20 04:37 07:42 07:42 WBC 11.6 H RBC 5.13 H Hgb 9.2 L Hct MCV 64 L MCH 18 L MCHC 28 L RDW 28.1 H Plt Count [place] # (Auto) Seg Neutrophils % Seg Neuts % (Manual) Lymphocytes % (Manual) Nucleated RBC % Seg Neutrophils # Seg Neutrophils # Man Lymphocytes # (Manual) Monocytes # (Manual) PT INR D-Dimer 660.07 H POC ABG pO2 ABG Hemoglobin ABG Oxyhemoglobin ABG Potassium ABG Chloride ABG Glucose Potassium Chloride BUN 19 H Creatinine 0.4 L Glucose 107 H Lactic Acid Calcium Ferritin Total Bilirubin Direct Bilirubin AST 71 H ALT 101 H Alkaline Phosphatase 388 H Lactate Dehydrogenase C-Reactive Protein Total Protein Albumin 3.1 L Arterial Blood Glucose Coronavirus (PCR) 12/27/20 12/27/20 05:52 05:53 WBC RBC Hgb 8.3 L Hct 29.1 L MCV 62 L MCH 18 L MCHC 29 L RDW 28.2 H Plt Count [place] # (Auto) Seg Neutrophils % Seg Neuts % (Manual) Lymphocytes % (Manual) Nucleated RBC % Seg Neutrophils # Seg Neutrophils # Man Lymphocytes # (Manual) Monocytes # (Manual) PT INR D-Dimer POC ABG pO2 ABG Hemoglobin ABG Oxyhemoglobin ABG Potassium ABG Chloride ABG Glucose Potassium Chloride BUN Creatinine 0.3 L Glucose 101 H Lactic Acid Calcium Ferritin Total Bilirubin Direct Bilirubin AST ALT 80 H Alkaline Phosphatase 393 H Lactate Dehydrogenase C-Reactive Protein Total Protein Albumin 3.2 L Arterial Blood Glucose Coronavirus (PCR) Allied health notes reviewed: nursing
[2020-12-29] MEDS: ZINC SULFATE 220 MG CAP PO SCH (10:47)
[2020-12-29] MEDS: CHOLECALCIFEROL (VIT D3) 1000 UNIT (25 mcg) TAB PO SCH (10:47)
[2020-12-29] MEDS: ENOXAPARIN 80 MG/0.8 ML INJ SUB-Q SCH ×2 (10:47→21:44)
[2020-12-29] MEDS: FAMOTIDINE 20 MG TAB PO SCH ×2 (10:47→21:43)
[2020-12-29] MEDS: ASCORBIC ACID 500 MG TAB PO SCH ×2 (10:47→21:43)
[2020-12-29] MEDS: LISINOPRIL 20 MG TAB PO SCH (10:51)
[2020-12-29] MEDS: oxyCODONE /ACETAMINOPHEN 5-325MG TAB PO PRN ×2 (13:54→21:43)
--- NOTE | 2020-12-29 14:09 | Progress Note ---
Assessment and Plan Assessment and plan: 50-year-old female with history of hypertension was brought to the emergency room because of shortness of breath, cough, fever, Covid positive. Patient was diagnosed with COVID-19 1 week ago. Since then patient complained of worsening shortness of breath. Patient states she has not seen a physician for this. Patient states she does not take any medicine. Patient states the fever is fluctuating. Patient states it responds well to Tylenol. Patient states her cough is dry. Patient states she has not been vaccinated for COVID-19. Patient complains of chills. Patient denies nausea vomiting. Patient denies diarrhea. Patient denies abdominal pain. Patient denies chest pain. Patient's ox saturation was 82%. Patient was found to have acute respiratory failure. Patient WBC 17.0 and chest x-ray shows pneumonia secondary to Covid. Patient was put on BiPAP 12/09/2020 -Patient was on BiPAP with FiO2 of 100%, patient desaturated when she was off BiPAP momentarily. I put her on D5 half-normal saline for maintenance. Titrate oxygen as tolerated. -Pulmonary consulted, ID consulted. -Patient has elevated ALT and AST and is not a candidate for remdesivir. -Patient is on IV antibiotics and procalcitonin level is elevated, ID recommends to continue with IV antibiotics. ID said patient is not a candidate for Actemra because of the infection with elevated procalcitonin level. 12/10; Patient is on BiPAP, on Decadron. Remdesivir discontinued due to elevated liver enzymes. Patient not a candidate for Actemra because patient has elevated procalcitonin level. Continue with IV antibiotics. Prognosis is guarded. 12/11 Patient is A&O,A&O, c/o weakness and feels tired. C/O shortness of breath. requesting stool sofner. She denies f/c/CP/N/abd. pain 12/12: Continue supportive care. Wean oxygen as tolerated. Will obtain pulmonary consult will evaluate for possible Lasix therapy. Noted anemia with hemoglobin of 8.1 will monitor this closely. D-dimer is elevated so is AST and ALT and alk phos. This may preclude use of medications such as remdesivir which has been discontinued in relation to this. Patient remains critically ill. 12/13: Patient showing some improve, still with BiPAP requirements, continue supportive care, continued sterods, Remdesivr per ID, monitor renal function closely and LFT. wean oxygen as tolerated. Prognosis guarded 12/14: Patient seen and examined, she is showing good improvement, down to 10 liters except that she gets anxious. I spoke extensively with the family and updated them on her clinical condition 12/15: Patient continues to show good improvement, weaned down to 5L of oxygen with saturation of 99%. Will transfer to Medical floor and continue current management. 12/16: Patient was doing well this am, on 5 liters and sating 95%, later desated and was placed back on BIPAP. reassurance and counselling provided 12/17: Patient remains on oxygen high flow. I believe that she will be able to be weaned if she if we can control her anxiety. Discussed with nursing staff at bedside also discussed with the patient. Will begin LTAC referral in a.m. 12/18/20 patient is seen and examined. Less shortness of breath. No chest pain. Anxious. Is on high flow oxygen at 40 L with 75% FiO2. We cut down the FiO2 75% from 80%. Wean oxygen. Continue current management. LTAC referral 12/19: Ms. Jarrett continues to show some improvement, She is currently on 70% FIO2 and satting 99%. Discussed with respiratory therapist will try to wean down further. Will transfer to [facility]. Continue to encourage slow deep breaths. Continue to use anxiolytics. Awaiting LTAC approval. Continue to monitor hemoglobin. 12/20: Patient seen and examined, patient needs to continue weaning of oxygen, satting 98% on 70%FIO2. Her anxiety level is improving, can transfer to [facility] 12/21: Patient showing good disposition. Currently FiO2 is down to 50% with saturation of 96% we will continue current management. Continue to encourage prone position. 12/22: Patient seen and examined this morning actually doing well. She is down to 3 L with a sat of 94%. She unfortunately has bouts of anxiety relative to the loss of her parents due to COVID-19 who unfortunately have not been buried and this makes her oxygen demand go up but while she comes down she is able to do well at 3 L. I think psychologically she will benefit from being discharged in 24 to 48 hours if her oxygen continues to improve she likely will need home oxygen as her history and as a result a walk test prior to discharge is appropriate. I also discussed with her brother who is also requested that tomorrow we will give an update to the sister about her condition prior to discharge. I have placed a walk test for tomorrow and have discussed with nursing staff also 12/23; patient was on 4L of oxygen saturating 95%. Patient has bouts of anxiety and on 0.25 mg of Xanax as needed. We will do home O2 evaluation and possible discharge today. Patient need PT OT evaluation. Will discuss with case management about her concerns stairs in her house. 12/24; patient was on 5 L of oxygen. Patient need PT OT evaluation. Try to call her brother yesterday but he could not citrus picker his phone. Patient is deconditioned and very weak. Patient may need rehab after evaluated by PT OT. (1) Acute hypoxic respiratory failure 2/2 Covid 19 PNA pulmonary note reviewed Patient is on 5 L via nasal cannula (2) COVID-19 pneumonia Current Visit: Yes Status: Acute Plan to address problem: ID note reviewed inflammatory markers reviewed-improving Completed Decadron and remdesivir course 3. Severe sepsis procalcitonin results reviewed ID note reviewed Off antibiotics 4) leukocytosis improved (5) Hypertension Current Visit: Yes Status: Acute Plan to address problem: Hydralazine 10 mg IV every 6 hours as needed she has no hx of HTN 6) Transaminitis: results reviewed-improving well cont. to monitor (7) anemia Normocytic type H&H stable (8) Anxiety Continue alprazolam as needed 12/09/2020 -Patient was on BiPAP with FiO2 of 100%, patient desaturated when she was off BiPAP momentarily. I put her on D5 half-normal saline for maintenance. Titrate oxygen as tolerated. -Pulmonary consulted, ID consulted. -Patient has elevated ALT and AST and is not a candidate for remdesivir. -Patient is on IV antibiotics and procalcitonin level is elevated, ID recommends to continue with IV antibiotics. ID said patient is not a candidate for Actemra because of the infection with elevated procalcitonin level. 12/10; Patient is on BiPAP, on Decadron. Remdesivir discontinued due to elevated liver enzymes. Patient not a candidate for Actemra because patient has elevated procalcitonin level. Continue with IV antibiotics. Prognosis is guarded. 12/11 Patient is A&O,A&O, c/o weakness and feels tired. C/O shortness of breath. requesting stool sofner. She denies f/c/CP/N/abd. pain 12/12: Continue supportive care. Wean oxygen as tolerated. Will obtain pulmonary consult will evaluate for possible Lasix therapy. Noted anemia with hemoglobin of 8.1 will monitor this closely. D-dimer is elevated so is AST and ALT and alk phos. This may preclude use of medications such as remdesivir which has been discontinued in relation to this. Patient remains critically ill. 12/13: Patient showing some improve, still with BiPAP requirements, continue supportive care, continued sterods, Remdesivr per ID, monitor renal function closely and LFT. wean oxygen as tolerated. Prognosis guarded 12/14: Patient seen and examined, she is showing good improvement, down to 10 liters except that she gets anxious. I spoke extensively with the family and updated them on her clinical condition 12/15: Patient continues to show good improvement, weaned down to 5L of oxygen with saturation of 99%. Will transfer to Medical floor and continue current management. 12/16: Patient was doing well this am, on 5 liters and sating 95%, later desated and was placed back on BIPAP. reassurance and counselling provided 12/17: Patient remains on oxygen high flow. I believe that she will be able to be weaned if she if we can control her anxiety. Discussed with nursing staff at bedside also discussed with the patient. Will begin LTAC referral in a.m. 12/18/20 patient is seen and examined. Less shortness of breath. No chest pain. Anxious. Is on high flow oxygen at 40 L with 75% FiO2. We cut down the FiO2 75% from 80%. Wean oxygen. Continue current management. LTAC referral 12/19: Ms. Jarrett continues to show some improvement, She is currently on 70% FIO2 and satting 99%. Discussed with respiratory therapist will try to wean down further. Will transfer to [facility]. Continue to encourage slow deep breaths. Continue to use anxiolytics. Awaiting LTAC approval. Continue to monitor hemoglobin. 12/20: Patient seen and examined, patient needs to continue weaning of oxygen, satting 98% on 70%FIO2. Her anxiety level is improving, can transfer to [facility] 12/21: Patient showing good disposition. Currently FiO2 is down to 50% with saturation of 96% we will continue current management. Continue to encourage prone position. 12/22: Patient seen and examined this morning actually doing well. She is down to 3 L with a sat of 94%. She unfortunately has bouts of anxiety relative to the loss of her parents due to COVID-19 who unfortunately have not been buried and this makes her oxygen demand go up but while she comes down she is able to do well at 3 L. I think psychologically she will benefit from being discharged in 24 to 48 hours if her oxygen continues to improve she likely will need home oxygen as her history and as a result a walk test prior to discharge is appropriate. I also discussed with her brother who is also requested that tomorrow we will give an update to the sister about her condition prior to discharge. I have placed a walk test for tomorrow and have discussed with nursing staff also 12/23; patient was on 4L of oxygen saturating 95%. Patient has bouts of anxiety and on 0.25 mg of Xanax as needed. We will do home O2 evaluation and possible discharge today. Patient need PT OT evaluation. Will discuss with case management about her concerns stairs in her house. 12/24; patient was on 5 L of oxygen. Patient need PT OT evaluation. Try to call her brother yesterday but he could not citrus picker his phone. Patient is deconditioned and very weak. Patient may need rehab after evaluated by PT OT. 12/25 patient is alert and oriented and complains of weakness and feeling tired, also complains of coughing spells and feels short of breath with mild effort She denies any fever or chills, denies chest pain, abdominal pain or dysuria. Lab results reviewed 12/26 patient is alert and oriented and on 5 L oxygen via nasal cannula. Complains of cough and shortness of breath with minimal effort and desaturates with mild effort. Also complains of anxiety and depression lab results reviewed. Pulmonary note reviewed 12/27: Patient clinical stable this morning, anxiously waiting to be discharged, i found her on 3 liters of oxygen and with no distress. I did have extensive conversation with her about her medical condition and critical factors to monitor for she states that she already has home oxygen and also has a pulse oximeter which she will monitor daily. Discussed with Rehab, patient will need SNF as she destaurates with exertion and has no one to care for her at home. Also she has no one at home to help her. 12/28: Patient still requires aggressive rehab and physical therapy unfortunately. Source precludes. Case management to discuss with family to see if there is any family member that can take her to their home while we look for other options. Continue oxygen therapy daily ambulation and once clinically stable can be discharged 12/29: Patient seen and examined, will continue daily PT/OT and anticipate discharge tomorrow once safety arrangements are finalized at home. Discussed with the team History Interval history: Patient seen and examined showing some improvement, remains on 3 L no clinical change. Exertional dyspnea persist. She states she is feeling a bit better, she has a plan on how to get her food and help at home Hospitalist Physical - Physical exam Narrative exam: VITAL SIGNS: Reviewed. GENERAL: The patient appears normally developed, mild shortness of breath much improved compared to prior improving, vital signs as documented. HEAD: No signs of head trauma. EYES: Pupils are equal. Extraocular motions intact. EARS: Hearing grossly intact. MOUTH: Oropharynx is normal. NECK: No adenopathy, no JVD. CHEST: Chest with diminished breath sounds bilaterally. No wheezes, rales, or rhonchi. CARDIAC: Regular rate and rhythm. S1 and S2, without murmurs, gallops, or rubs. VASCULAR: No Edema. Peripheral pulses normal and equal in all extremities. ABDOMEN: Soft, non tender and non distended. No rebound or guarding, and no masses palpated. Bowel Sounds normal. MUSCULOSKELETAL: Good range of motion of all major joints. Extremities without clubbing, cyanosis or edema. NEUROLOGIC EXAM: Alert and oriented x 3, No focal sensory or strength deficits. Speech normal. Follows commands. PSYCHIATRIC: Mood normal not at the moment SKIN: detail exam as documented in skin assessment - Constitutional Vitals: Temp Pulse Resp BP Pulse Ox 99.3 F 90 22 102/63 98 12/29/20 12:51 12/29/20 12:51 12/29/20 12:51 12/29/20 12:51 12/29/20 12:51 General appearance: Present: no acute distress Results - Labs CBC & Chem 7: 12/27/20 05:53 12/27/20 05:52 Labs: Laboratory Last Values WBC 7.5 K/mm3 (4.5-11.0) 12/27/20 05:53 RBC 4.70 M/mm3 (3.65-5.03) 12/27/20 05:53 Hgb 8.3 gm/dl (10.1-14.3) L 12/27/20 05:53 Hct 29.1 % (30.3-42.9) L 12/27/20 05:53 MCV 62 fl (79-97) L 12/27/20 05:53 MCH 18 pg (28-32) L 12/27/20 05:53 MCHC 29 % (30-34) L 12/27/20 05:53 RDW 28.2 % (13.2-15.2) H 12/27/20 05:53 Plt Count 176 K/mm3 (140-440) 12/27/20 05:53 Cecil % (Auto) 6.0 % (0.0-7.3) 12/09/20 04:33 Cecil # (Auto) 1.3 K/mm3 (0.0-0.8) H 12/09/20 04:33 Add Manual Diff Complete 12/12/20 05:01 Total Counted 100 12/12/20 05:01 Seg Neutrophils % 84.3 % (40.0-70.0) H 12/09/20 04:33 Seg Neuts % (Manual) 83.0 % (40.0-70.0) H 12/12/20 05:01 Band Neutrophils % 3.0 % 12/09/20 04:33 Lymphocytes % (Manual) 10.0 % (13.4-35.0) L 12/12/20 05:01 Monocytes % (Manual) 7.0 % (0.0-7.3) 12/12/20 05:01 Metamyelocytes % 1.0 % 12/08/20 00:15 Nucleated RBC % 2.0 % (0.0-0.9) H 12/12/20 05:01 Seg Neutrophils # 17.8 K/mm3 (1.8-7.7) H 12/09/20 04:33 Seg Neutrophils # Man 12.7 K/mm3 (1.8-7.7) H 12/12/20 05:01 Band Neutrophils # 0.0 K/mm3 12/12/20 05:01 Lymphocytes # (Manual) 1.5 K/mm3 (1.2-5.4) 12/12/20 05:01 Abs React Lymphs (Man) 0.0 K/mm3 12/12/20 05:01 Monocytes # (Manual) 1.1 K/mm3 (0.0-0.8) H 12/12/20 05:01 Eosinophils # (Manual) 0.0 K/mm3 (0.0-0.4) 12/12/20 05:01 Basophils # (Manual) 0.0 K/mm3 (0.0-0.1) 12/12/20 05:01 Metamyelocytes # 0.0 K/mm3 12/12/20 05:01 Myelocytes # 0.0 K/mm3 12/12/20 05:01 Promyelocytes # 0.0 K/mm3 12/12/20 05:01 Blast Cells # 0.0 K/mm3 12/12/20 05:01 WBC Morphology Not Reportable 12/12/20 05:01 Hypersegmented Neuts Not Reportable 12/12/20 05:01 Hyposegmented Neuts Not Reportable 12/12/20 05:01 Hypogranular Neuts Not Reportable 12/12/20 05:01 Smudge Cells Not Reportable 12/12/20 05:01 Toxic Granulation Not Reportable 12/12/20 05:01 Toxic Vacuolation Not Reportable 12/12/20 05:01 Dohle Bodies Not Reportable 12/12/20 05:01 Pelger-Huet Anomaly Not Reportable 12/12/20 05:01 Lauryn Rods Not Reportable 12/12/20 05:01 Platelet Estimate Consistent w auto 12/12/20 05:01 Clumped Platelets Not Reportable 12/12/20 05:01 Plt Clumps, EDTA Not Reportable 12/12/20 05:01 Large Platelets Not Reportable 12/12/20 05:01 Giant Platelets Not Reportable 12/12/20 05:01 Platelet Satelliting Not Reportable 12/12/20 05:01 Plt Morphology Comment Not Reportable 12/12/20 05:01 RBC Morphology Not Reportable 12/12/20 05:01 Dimorphic RBCs Not Reportable 12/12/20 05:01 Polychromasia Not Reportable 12/12/20 05:01 Hypochromasia 3+ 12/12/20 05:01 Poikilocytosis 1+ 12/12/20 05:01 Anisocytosis 2+ 12/12/20 05:01 Microcytosis 2+ 12/12/20 05:01 Macrocytosis Not Reportable 12/12/20 05:01 Spherocytes Not Reportable 12/12/20 05:01 Pappenheimer Bodies Not Reportable 12/12/20 05:01 Sickle Cells Not Reportable 12/12/20 05:01 Target Cells Not Reportable 12/12/20 05:01 Tear Drop Cells Few 12/12/20 05:01 Ovalocytes Few 12/12/20 05:01 Helmet Cells Not Reportable 12/12/20 05:01 Torres-[place]ault Bodies Not Reportable 12/12/20 05:01 [place] Rings Not Reportable 12/12/20 05:01 Jens Cells Not Reportable 12/12/20 05:01 Bite Cells Not Reportable 12/12/20 05:01 Crenated Cell Not Reportable 12/12/20 05:01 Elliptocytes Few 12/12/20 05:01 Acanthocytes (Spur) Not Reportable 12/12/20 05:01 Rouleaux Not Reportable 12/12/20 05:01 Hemoglobin C Crystals Not Reportable 12/12/20 05:01 Schistocytes Not Reportable 12/12/20 05:01 Malaria parasites Not Reportable 12/12/20 05:01 Brant Bodies Not Reportable 12/12/20 05:01 Hem Pathologist Commnt No 12/12/20 05:01 PT 16.4 Sec. (12.2-14.9) H 12/08/20 00:15 INR 1.27 (0.87-1.13) H 12/08/20 00:15 APTT 29.6 Sec. (24.2-36.6) 12/08/20 00:15 D-Dimer 660.07 ng/mlDDU (0-234) H 12/15/20 04:37 ABG pH 7.449 (7.320-7.450) 12/10/20 08:45 POC ABG pCO2 36.5 mmHg (32.0-48.0) 12/10/20 08:45 POC ABG pO2 64.5 mmHg (83-108) L 12/10/20 08:45 POC ABG HCO3 24.7 12/10/20 08:45 ABG O2 Saturation 91.0 (0-100) 12/10/20 08:45 POC ABG Base Excess 0.8 12/10/20 08:45 ABG Hemoglobin 7.6 (12.0-17.5) L 12/10/20 08:45 ABG Oxyhemoglobin 90.2 (94-98) L 12/10/20 08:45 ABG Methemoglobin 0.1 (0.0-1.5) 12/10/20 08:45 ABG Sodium 139.9 mmol/L (136.0-145.0) 12/10/20 08:45 ABG Potassium 3.3 mmol/L (3.40-4.50) L 12/10/20 08:45 ABG Chloride 108.0 mmol/L (98-107) H 12/10/20 08:45 ABG Glucose 126 mg/dL (65-95) H 12/10/20 08:45 Carboxyhemoglobin 0.8 (0.5-1.5) 12/10/20 08:45 FiO2 % 35.0 12/10/20 08:45 Sodium 138 mmol/L (137-145) 12/27/20 05:52 Potassium 3.7 mmol/L (3.6-5.0) 12/27/20 05:52 Chloride 102.4 mmol/L (98-107) 12/27/20 05:52 Carbon Dioxide 25 mmol/L (22-30) 12/27/20 05:52 Anion Gap 14 mmol/L 12/27/20 05:52 BUN 13 mg/dL (7-17) 12/27/20 05:52 Creatinine 0.3 mg/dL (0.6-1.2) L 12/27/20 05:52 Estimated GFR > 60 ml/min 12/27/20 05:52 BUN/Creatinine Ratio 43 % 12/27/20 05:52 Glucose 101 mg/dL (65-100) H 12/27/20 05:52 Lactic Acid 2.50 mmol/L (0.7-2.0) H* 12/11/20 12:38 Calcium 9.3 mg/dL (8.4-10.2) 12/27/20 05:52 Ferritin 147.8 ng/mL (10.0-200.0) 12/15/20 04:37 Total Bilirubin 0.50 mg/dL (0.1-1.2) 12/27/20 05:52 Direct Bilirubin 0.3 mg/dL (0-0.2) H 12/15/20 04:37 Indirect Bilirubin 0.3 mg/dL 12/15/20 04:37 AST 35 units/L (5-40) 12/27/20 05:52 ALT 80 units/L (7-56) H 12/27/20 05:52 Alkaline Phosphatase 393 units/L (35-129) H 12/27/20 05:52 Lactate Dehydrogenase 511 units/L (91-180) H 12/12/20 05:01 C-Reactive Protein 1.20 mg/dL (0.00-1.30) 12/15/20 04:37 Total Protein 7.1 g/dL (6.3-8.2) 12/27/20 05:52 Albumin 3.2 g/dL (3.9-5) L 12/27/20 05:52 Albumin/Globulin Ratio 0.8 % 12/27/20 05:52 Procalcitonin 0.83 ng/mL (<0.15) 12/15/20 04:37 Arterial Blood Glucose 126 mg/dL (65-95) H 12/10/20 08:45 Coronavirus (PCR) Positive (Negative) A 12/08/20 10:30 Hepatitis A IgM Ab Non-reactive (NonReactive) 12/13/20 07:25 Hep Bs Antigen Nonreactive (Negative) 12/13/20 07:25 Hep B Core IgM Ab Non-reactive (NonReactive) 12/13/20 07:25 Hepatitis C Antibody Non-reactive (NonReactive) 12/13/20 07:25 Kilpatrick/IV: Voiding Method Bedside Commode Active Medications - Current Medications Current Medications: Generic Name Dose Route Start Last Admin Trade Name Freq PRN Reason Stop Dose Admin Acetaminophen 650 mg 12/08/20 05:31 12/29/20 01:04 Acetaminophen 325 Mg Tab PO 650 mg Q4H PRN Administration Pain MILD(1-3)/Fever >100.5/[place] Albuterol 2.5 mg 12/08/20 05:31 Albuterol 2.5 Mg/3 Ml Nebu IH Q4HRT PRN Shortness Of Breath Alprazolam 0.25 mg 12/16/20 13:09 12/27/20 21:55 Alprazolam 0.25 Mg Tab PO 0.25 mg Q6H PRN Administration Anxiety Ascorbic Acid 500 mg 12/09/20 10:00 12/29/20 10:47 Ascorbic Acid 500 Mg Tab PO 500 mg BID [facility] Administration Cholecalciferol 1,000 unit 12/09/20 10:00 12/29/20 10:47 Cholecalciferol (Vit D3) 1000 Unit (25 Mcg) Tab PO 1,000 unit QDAY [facility] Administration Enoxaparin Sodium 80 mg 12/26/20 22:00 12/29/20 10:47 Enoxaparin 80 Mg/0.8 Ml Inj SUB-Q 80 mg Q12HR DARIAN Administration Famotidine 20 mg 12/08/20 10:00 12/29/20 10:47 Famotidine 20 Mg Tab PO 20 mg BID [facility] Administration Hydromorphone HCl 0.5 mg 12/08/20 05:31 12/25/20 22:11 Hydromorphone 1 Mg/1 Ml Inj IV 0.5 mg Q3H PRN Administration Pain , Severe (7-10) Lisinopril 20 mg 12/15/20 19:00 12/29/20 10:51 Lisinopril 20 Mg Tab PO Not Given QDAY [facility] Ondansetron HCl 4 mg 12/08/20 05:31 12/28/20 19:57 Ondansetron 4 Mg/2 Ml Inj IV 4 mg Q8H PRN Administration Nausea And Vomiting Oxycodone/Acetaminophen 1 tab 12/08/20 05:31 12/29/20 13:54 Oxycodone /Acetaminophen 5-325mg Tab PO 1 tab Q6H PRN Administration Pain, Moderate (4-6) Polyethylene Glycol 17 gm 12/11/20 15:53 Polyethylene Glycol 3350 17 Gm Powder PO QDAY PRN Constipation Promethazine HCl 12.5 mg 12/20/20 21:54 Promethazine 12.5 Mg/10 Ml Oral Liqd PO Q6H PRN Nausea And Vomiting Sodium Chloride 10 ml 12/08/20 10:00 12/29/20 10:48 Sodium Chloride 0.9% 10 Ml Flush Syringe IV 10 ml BID DARIAN Administration Sodium Chloride 10 ml 12/08/20 05:31 Sodium Chloride 0.9% 10 Ml Flush Syringe IV PRN PRN LINE FLUSH Zinc Sulfate 220 mg 12/09/20 10:00 12/29/20 10:47 Zinc Sulfate 220 Mg Cap PO 220 mg QDAY DARIAN Administration Nutrition/Malnutrition Assess - Dietary Evaluation Nutrition/Malnutrition Findings: Nutrition Notes Start: 12/18/20 14:21 Freq: Status: Active Protocol: Document 12/18/20 14:21 (Rec: 12/18/20 14:22 [id number]) Nutrition Notes Need for Assessment generated from: LOS Initial or Follow up Brief Note Subjective/Other Information Pt eating 100% of meals. Nutrition Intervention Revisit per MD consult or patient Sign Off request:
[2020-12-30] MEDS ORDERED: diphenhydrAMINE 25 MG CAP PO ONE (00:57)
[2020-12-30] MEDS: oxyCODONE /ACETAMINOPHEN 5-325MG TAB PO PRN (05:38)
--- NOTE | 2020-12-30 07:54 | Progress Note ---
Assessment and Plan Acute hypoxemic respiratory failure COVID-19 infection Bilateral pneumonia Elevated serum transaminases Sepsis Anemia that is microcytic Thrombocytosis Lactic acidosis - discharge planning ongoing concurrently - home oxygen evaluation at discharge - prn CXR's & ABG's at this point - no new issues otherwise, watch closely but continue care as below; - continue awake proning - continue to wean supplemental oxygen for target O2 sat's > 92% acutely - continue aspiration precautions - bronchodilators with pulmonary hygiene per RT - avoid nephrotoxins, renally dose all medications - avoid benzodiazepine's, reduce the possibility of delirium - complete antiinfective's per ID rec's - prn analgesia per pain score - Maintenance of sleep-wake cycle, avoid delirium - G.I. & VTE prophylaxis - PT/OT/ROM exercises - continue mobility protocols for pressure ulcer prophylaxis - Monitor hemodynamics closely - continue other care per attending / other consultants COVID SPECIFIC INTERVENTIONS - Remdesivir as per ID/Pulmonary developed protocols (not a candidate re: LFT's) - continue systemic steroids for severe COVID-19 infection - follow repeat COVID tests results - zinc and vitamin C supplementation - Monitor inflammatory markers per facility protocol - ferritin, Ddimer, CRP - therapeutic anticoagulation per system Protocol based on d-dimer and clinical considerations (VTE prophylaxis) - Continue contact and airborne isolation .... Re-evaluate in am & prn Subjective Date of service: 12/30/20 Principal diagnosis: Ac hypoxemic resp failure; COVID-19 infxn; Pneumonia; Sepsis Interval history: Patient is seen today for: Acute hypoxemic respiratory failure; COVID-19 infection; Bilateral pneumonia; Elevated serum transaminases; Sepsis; Lactic acidosis Seen and examined at bedside; 24hour events reviewed; nursing and respiratory care staff consulted; no adverse overnight events reported to me; resting in bed; Objective Vital Signs - 12hr 12/29/20 12/29/20 12/30/20 21:13 22:00 04:26 Temperature 99.0 F 98.2 F Pulse Rate 105 H Respiratory 24 20 Rate Blood Pressure 101/57 103/70 O2 Sat by Pulse 99 98 Oximetry 12/30/20 12/30/20 04:35 06:23 Temperature Pulse Rate Respiratory Rate Blood Pressure O2 Sat by Pulse 98 93 Oximetry Constitutional: no acute distress, other (middle aged female without increased respiratory effort at rest) Eyes: non-icteric ENT: oropharynx moist Neck: supple, no lymphadenopathy, no JVD Effort: normal Ascultation: Bilateral: clear, rhonchi (bases posteriorly) Percussion: Bilateral: not dull Cardiovascular: regular rate and rhythm Gastrointestinal: normoactive bowel sounds, soft, non-tender, non-distended Integumentary: normal Extremities: no cyanosis, no edema, pulses normal, no ischemia or petechiae Neurologic: normal mental status, non-focal exam, pupils equal and round, CN II-XII normal, motor strength normal and Psychiatric: mood appropriate, affect normal CBC and BMP: 12/27/20 05:53 12/27/20 05:52 ABG, PT/INR, D-dimer: ABG ABG pH 7.449 (7.320-7.450) 12/10/20 08:45 POC ABG pCO2 36.5 mmHg (32.0-48.0) 12/10/20 08:45 POC ABG pO2 64.5 mmHg (83-108) L 12/10/20 08:45 POC ABG HCO3 24.7 12/10/20 08:45 ABG O2 Saturation 91.0 (0-100) 12/10/20 08:45 PT/INR, D-dimer PT 16.4 Sec. (12.2-14.9) H 12/08/20 00:15 INR 1.27 (0.87-1.13) H 12/08/20 00:15 D-Dimer 660.07 ng/mlDDU (0-234) H 12/15/20 04:37 Abnormal lab findings: Abnormal Labs 12/08/20 12/08/20 12/08/20 00:15 00:15 00:15 WBC 17.0 H RBC 5.40 H Hgb 8.3 L Hct 29.7 L MCV 55 L MCH 16 L MCHC 28 L RDW 25.0 H Plt Count 464 H [place] # (Auto) Seg Neutrophils % Seg Neuts % (Manual) 92.0 H Lymphocytes % (Manual) 1.0 L Nucleated RBC % Seg Neutrophils # Seg Neutrophils # Man 15.6 H Lymphocytes # (Manual) 0.2 L Monocytes # (Manual) PT 16.4 H INR 1.27 H D-Dimer 1129.87 H POC ABG pO2 ABG Hemoglobin ABG Oxyhemoglobin ABG Potassium ABG Chloride ABG Glucose Potassium 3.1 L Chloride BUN Creatinine Glucose 128 H Lactic Acid Calcium 8.3 L Ferritin Total Bilirubin 1.90 H Direct Bilirubin AST 309 H ALT 1384 H Alkaline Phosphatase 440 H Lactate Dehydrogenase C-Reactive Protein Total Protein Albumin 3.2 L Arterial Blood Glucose Coronavirus (PCR) 12/08/20 12/08/20 12/08/20 00:15 00:15 00:15 WBC RBC Hgb Hct MCV MCH MCHC RDW Plt Count [place] # (Auto) Seg Neutrophils % Seg Neuts % (Manual) Lymphocytes % (Manual) Nucleated RBC % Seg Neutrophils # Seg Neutrophils # Man Lymphocytes # (Manual) Monocytes # (Manual) PT INR D-Dimer POC ABG pO2 ABG Hemoglobin ABG Oxyhemoglobin ABG Potassium ABG Chloride ABG Glucose Potassium Chloride BUN Creatinine Glucose Lactic Acid 2.30 H* Calcium Ferritin 289.8 H Total Bilirubin Direct Bilirubin AST ALT Alkaline Phosphatase Lactate Dehydrogenase 608 H C-Reactive Protein 20.70 H Total Protein Albumin Arterial Blood Glucose Coronavirus (PCR) 12/08/20 12/08/20 12/08/20 02:16 09:49 10:30 WBC RBC Hgb Hct MCV MCH MCHC RDW Plt Count [place] # (Auto) Seg Neutrophils % Seg Neuts % (Manual) Lymphocytes % (Manual) Nucleated RBC % Seg Neutrophils # Seg Neutrophils # Man Lymphocytes # (Manual) Monocytes # (Manual) PT INR D-Dimer POC ABG pO2 ABG Hemoglobin ABG Oxyhemoglobin ABG Potassium ABG Chloride ABG Glucose Potassium Chloride BUN Creatinine Glucose Lactic Acid 2.50 H* 2.40 H* Calcium Ferritin Total Bilirubin Direct Bilirubin AST ALT Alkaline Phosphatase Lactate Dehydrogenase C-Reactive Protein Total Protein Albumin Arterial Blood Glucose Coronavirus (PCR) Positive A 12/09/20 12/09/20 12/09/20 04:33 04:33 09:13 WBC 21.0 H RBC 5.12 H Hgb 8.2 L Hct 29.1 L MCV 57 L MCH 16 L MCHC 28 L RDW 24.6 H Plt Count 509 H [place] # (Auto) 1.3 H Seg Neutrophils % 84.3 H Seg Neuts % (Manual) 93.0 H Lymphocytes % (Manual) 2.0 L Nucleated RBC % 2.0 H Seg Neutrophils # 17.8 H Seg Neutrophils # Man 19.5 H Lymphocytes # (Manual) 0.4 L Monocytes # (Manual) PT INR D-Dimer POC ABG pO2 ABG Hemoglobin ABG Oxyhemoglobin ABG Potassium ABG Chloride ABG Glucose Potassium 3.5 L Chloride BUN 30 H 29 H Creatinine Glucose 190 H 129 H Lactic Acid Calcium Ferritin Total Bilirubin Direct Bilirubin AST 276 H ALT 867 H Alkaline Phosphatase 685 H Lactate Dehydrogenase C-Reactive Protein Total Protein Albumin 3.1 L Arterial Blood Glucose Coronavirus (PCR) 12/09/20 12/10/20 12/10/20 19:16 05:04 05:04 WBC RBC Hgb Hct MCV MCH MCHC RDW Plt Count [place] # (Auto) Seg Neutrophils % Seg Neuts % (Manual) Lymphocytes % (Manual) Nucleated RBC % Seg Neutrophils # Seg Neutrophils # Man Lymphocytes # (Manual) Monocytes # (Manual) PT INR D-Dimer POC ABG pO2 ABG Hemoglobin ABG Oxyhemoglobin ABG Potassium ABG Chloride ABG Glucose Potassium 3.4 L Chloride BUN 25 H Creatinine Glucose 184 H Lactic Acid 2.80 H* 3.30 H* Calcium 7.9 L Ferritin Total Bilirubin Direct Bilirubin AST 277 H ALT 722 H Alkaline Phosphatase 773 H Lactate Dehydrogenase C-Reactive Protein Total Protein Albumin 2.9 L Arterial Blood Glucose Coronavirus (PCR) 12/10/20 12/10/20 12/10/20 08:11 08:45 11:15 WBC RBC Hgb Hct MCV MCH MCHC RDW Plt Count [place] # (Auto) Seg Neutrophils % Seg Neuts % (Manual) Lymphocytes % (Manual) Nucleated RBC % Seg Neutrophils # Seg Neutrophils # Man Lymphocytes # (Manual) Monocytes # (Manual) PT INR D-Dimer POC ABG pO2 64.5 L ABG Hemoglobin 7.6 L ABG Oxyhemoglobin 90.2 L ABG Potassium 3.3 L ABG Chloride 108.0 H ABG Glucose 126 H Potassium Chloride BUN Creatinine Glucose Lactic Acid 2.10 H* 2.40 H* Calcium Ferritin Total Bilirubin Direct Bilirubin AST ALT Alkaline Phosphatase Lactate Dehydrogenase C-Reactive Protein Total Protein Albumin Arterial Blood Glucose 126 H Coronavirus (PCR) 12/10/20 12/10/20 12/11/20 13:36 19:13 00:49 WBC RBC Hgb Hct MCV MCH MCHC RDW Plt Count [place] # (Auto) Seg Neutrophils % Seg Neuts % (Manual) Lymphocytes % (Manual) Nucleated RBC % Seg Neutrophils # Seg Neutrophils # Man Lymphocytes # (Manual) Monocytes # (Manual) PT INR D-Dimer POC ABG pO2 ABG Hemoglobin ABG Oxyhemoglobin ABG Potassium ABG Chloride ABG Glucose Potassium 3.4 L Chloride BUN Creatinine Glucose Lactic Acid 3.40 H* 2.30 H* Calcium Ferritin Total Bilirubin Direct Bilirubin AST ALT Alkaline Phosphatase Lactate Dehydrogenase C-Reactive Protein Total Protein Albumin Arterial Blood Glucose Coronavirus (PCR) 12/11/20 12/11/20 12/11/20 05:34 05:34 10:06 WBC RBC Hgb Hct MCV MCH MCHC RDW Plt Count [place] # (Auto) Seg Neutrophils % Seg Neuts % (Manual) Lymphocytes % (Manual) Nucleated RBC % Seg Neutrophils # Seg Neutrophils # Man Lymphocytes # (Manual) Monocytes # (Manual) PT INR D-Dimer POC ABG pO2 ABG Hemoglobin ABG Oxyhemoglobin ABG Potassium ABG Chloride ABG Glucose Potassium Chloride 108.1 H BUN Creatinine 0.4 L Glucose 160 H Lactic Acid 2.30 H* 2.90 H* Calcium 8.3 L Ferritin Total Bilirubin Direct Bilirubin AST 249 H ALT 589 H Alkaline Phosphatase 701 H Lactate Dehydrogenase C-Reactive Protein Total Protein 5.9 L Albumin 3.0 L Arterial Blood Glucose Coronavirus (PCR) 12/11/20 12/11/20 12/11/20 12:38 12:38 12:38 WBC RBC Hgb Hct MCV MCH MCHC RDW Plt Count [place] # (Auto) Seg Neutrophils % Seg Neuts % (Manual) Lymphocytes % (Manual) Nucleated RBC % Seg Neutrophils # Seg Neutrophils # Man Lymphocytes # (Manual) Monocytes # (Manual) PT INR D-Dimer 725.41 H POC ABG pO2 ABG Hemoglobin ABG Oxyhemoglobin ABG Potassium ABG Chloride ABG Glucose Potassium Chloride BUN Creatinine Glucose Lactic Acid 2.50 H* Calcium Ferritin Total Bilirubin Direct Bilirubin AST ALT Alkaline Phosphatase Lactate Dehydrogenase 447 H C-Reactive Protein 2.90 H Total Protein Albumin Arterial Blood Glucose Coronavirus (PCR) 12/12/20 12/12/20 12/12/20 05:01 05:01 05:01 WBC 15.3 H RBC Hgb 8.1 L Hct 28.4 L MCV 57 L MCH 16 L MCHC 29 L RDW 25.0 H Plt Count 809 H [place] # (Auto) Seg Neutrophils % Seg Neuts % (Manual) 83.0 H Lymphocytes % (Manual) 10.0 L Nucleated RBC % 2.0 H Seg Neutrophils # Seg Neutrophils # Man 12.7 H Lymphocytes # (Manual) Monocytes # (Manual) 1.1 H PT INR D-Dimer 752.84 H POC ABG pO2 ABG Hemoglobin ABG Oxyhemoglobin ABG Potassium ABG Chloride ABG Glucose Potassium Chloride BUN 20 H Creatinine 0.4 L Glucose 120 H Lactic Acid Calcium Ferritin Total Bilirubin Direct Bilirubin AST 121 H ALT 469 H Alkaline Phosphatase 633 H Lactate Dehydrogenase 511 H C-Reactive Protein 3.50 H Total Protein Albumin 3.1 L Arterial Blood Glucose Coronavirus (PCR) 12/13/20 12/13/20 12/14/20 07:25 07:25 13:54 WBC 11.2 H RBC Hgb 7.2 L Hct 24.3 L MCV 57 L MCH 17 L MCHC RDW 25.5 H Plt Count 634 H [place] # (Auto) Seg Neutrophils % Seg Neuts % (Manual) Lymphocytes % (Manual) Nucleated RBC % Seg Neutrophils # Seg Neutrophils # Man Lymphocytes # (Manual) Monocytes # (Manual) PT INR D-Dimer POC ABG pO2 ABG Hemoglobin ABG Oxyhemoglobin ABG Potassium ABG Chloride ABG Glucose Potassium Chloride 107.6 H BUN 25 H Creatinine 0.4 L Glucose 132 H Lactic Acid Calcium Ferritin Total Bilirubin Direct Bilirubin 0.3 H 0.4 H AST 72 H 115 H ALT 295 H 318 H Alkaline Phosphatase 466 H 617 H Lactate Dehydrogenase C-Reactive Protein Total Protein 6.1 L Albumin 2.7 L 3.0 L Arterial Blood Glucose Coronavirus (PCR) 12/14/20 12/14/20 12/15/20 13:54 13:54 04:37 WBC RBC Hgb Hct MCV MCH MCHC RDW Plt Count [place] # (Auto) Seg Neutrophils % Seg Neuts % (Manual) Lymphocytes % (Manual) Nucleated RBC % Seg Neutrophils # Seg Neutrophils # Man Lymphocytes # (Manual) Monocytes # (Manual) PT INR D-Dimer 806.70 H POC ABG pO2 ABG Hemoglobin ABG Oxyhemoglobin ABG Potassium ABG Chloride ABG Glucose Potassium Chloride BUN Creatinine Glucose Lactic Acid Calcium Ferritin Total Bilirubin Direct Bilirubin 0.3 H AST 97 H ALT 281 H Alkaline Phosphatase 553 H Lactate Dehydrogenase C-Reactive Protein 1.70 H Total Protein 6.2 L Albumin 2.8 L Arterial Blood Glucose Coronavirus (PCR) 12/15/20 12/25/20 12/25/20 04:37 07:42 07:42 WBC 11.6 H RBC 5.13 H Hgb 9.2 L Hct MCV 64 L MCH 18 L MCHC 28 L RDW 28.1 H Plt Count [place] # (Auto) Seg Neutrophils % Seg Neuts % (Manual) Lymphocytes % (Manual) Nucleated RBC % Seg Neutrophils # Seg Neutrophils # Man Lymphocytes # (Manual) Monocytes # (Manual) PT INR D-Dimer 660.07 H POC ABG pO2 ABG Hemoglobin ABG Oxyhemoglobin ABG Potassium ABG Chloride ABG Glucose Potassium Chloride BUN 19 H Creatinine 0.4 L Glucose 107 H Lactic Acid Calcium Ferritin Total Bilirubin Direct Bilirubin AST 71 H ALT 101 H Alkaline Phosphatase 388 H Lactate Dehydrogenase C-Reactive Protein Total Protein Albumin 3.1 L Arterial Blood Glucose Coronavirus (PCR) 12/27/20 12/27/20 05:52 05:53 WBC RBC Hgb 8.3 L Hct 29.1 L MCV 62 L MCH 18 L MCHC 29 L RDW 28.2 H Plt Count [place] # (Auto) Seg Neutrophils % Seg Neuts % (Manual) Lymphocytes % (Manual) Nucleated RBC % Seg Neutrophils # Seg Neutrophils # Man Lymphocytes # (Manual) Monocytes # (Manual) PT INR D-Dimer POC ABG pO2 ABG Hemoglobin ABG Oxyhemoglobin ABG Potassium ABG Chloride ABG Glucose Potassium Chloride BUN Creatinine 0.3 L Glucose 101 H Lactic Acid Calcium Ferritin Total Bilirubin Direct Bilirubin AST ALT 80 H Alkaline Phosphatase 393 H Lactate Dehydrogenase C-Reactive Protein Total Protein Albumin 3.2 L Arterial Blood Glucose Coronavirus (PCR) Allied health notes reviewed: nursing
--- NOTE | 2020-12-30 09:07 | Discharge Summary ---
Providers - Providers Date of Admission: 12/08/20 03:11 Attending physician: PARIS MARSH MD 12/08/20 05:31 Consult to Physician [CONS] Routine Comment: Consulting Provider: PARVEEN JIMENEZ Physician Instructions: Reason For Exam: covid Consult to Physician [CONS] Routine Comment: Consulting Provider: TATIANA GARCIA Physician Instructions: Reason For Exam: covid 12/23/20 10:12 Physical Therapy Evaluation and Treat [CONS] Routine Comment: Reason For Exam: generalized weakness 12/23/20 10:13 Occupational Therapy Evaluate and Treat [CONS] Routine Comment: Reason For Exam: generalized weakness Primary care physician: [employer]ATOR Hospitalization Reason for admission: SHORTNESS OF BREATH Condition: Stable Hospital course: 50-year-old female with history of hypertension was brought to the emergency room because of shortness of breath, cough, fever, Covid positive. Patient was diagnosed with COVID-19 1 week ago. Since then patient complained of worsening shortness of breath. Patient states she has not seen a physician for this. Patient states she does not take any medicine. Patient states the fever is fluctuating. Patient states it responds well to Tylenol. Patient states her cough is dry. Patient states she has not been vaccinated for COVID-19. Patient complains of chills. Patient denies nausea vomiting. Patient denies diarrhea. Patient denies abdominal pain. Patient denies chest pain. Patient's ox saturation was 82%. Patient was found to have acute respiratory failure. Patient WBC 17.0 and chest x-ray shows pneumonia secondary to Covid. Patient was put on BiPAP 12/09/2020 -Patient was on BiPAP with FiO2 of 100%, patient desaturated when she was off BiPAP momentarily. I put her on D5 half-normal saline for maintenance. Titrate oxygen as tolerated. -Pulmonary consulted, ID consulted. -Patient has elevated ALT and AST and is not a candidate for remdesivir. -Patient is on IV antibiotics and procalcitonin level is elevated, ID recommends to continue with IV antibiotics. ID said patient is not a candidate for Actemra because of the infection with elevated procalcitonin level. 12/10; Patient is on BiPAP, on Decadron. Remdesivir discontinued due to elevated liver enzymes. Patient not a candidate for Actemra because patient has elevated procalcitonin level. Continue with IV antibiotics. Prognosis is guarded. 12/11 Patient is A&O,A&O, c/o weakness and feels tired. C/O shortness of breath. requesting stool sofner. She denies f/c/CP/N/abd. pain 12/12: Continue supportive care. Wean oxygen as tolerated. Will obtain pulmonary consult will evaluate for possible Lasix therapy. Noted anemia with hemoglobin of 8.1 will monitor this closely. D-dimer is elevated so is AST and ALT and alk phos. This may preclude use of medications such as remdesivir which has been discontinued in relation to this. Patient remains critically ill. 12/13: Patient showing some improve, still with BiPAP requirements, continue supportive care, continued sterods, Remdesivr per ID, monitor renal function closely and LFT. wean oxygen as tolerated. Prognosis guarded 12/14: Patient seen and examined, she is showing good improvement, down to 10 liters except that she gets anxious. I spoke extensively with the family and updated them on her clinical condition 12/15: Patient continues to show good improvement, weaned down to 5L of oxygen with saturation of 99%. Will transfer to Medical floor and continue current management. 12/16: Patient was doing well this am, on 5 liters and sating 95%, later desated and was placed back on BIPAP. reassurance and counselling provided 12/17: Patient remains on oxygen high flow. I believe that she will be able to be weaned if she if we can control her anxiety. Discussed with nursing staff at bedside also discussed with the patient. Will begin LTAC referral in a.m. 12/18/20 patient is seen and examined. Less shortness of breath. No chest pain. Anxious. Is on high flow oxygen at 40 L with 75% FiO2. We cut down the FiO2 75% from 80%. Wean oxygen. Continue current management. LTAC referral 12/19: Ms. Jarrett continues to show some improvement, She is currently on 70% FIO2 and satting 99%. Discussed with respiratory therapist will try to wean down further. Will transfer to [facility]. Continue to encourage slow deep breaths. Continue to use anxiolytics. Awaiting LTAC approval. Continue to monitor hemoglobin. 12/20: Patient seen and examined, patient needs to continue weaning of oxygen, satting 98% on 70%FIO2. Her anxiety level is improving, can transfer to [facility] 12/21: Patient showing good disposition. Currently FiO2 is down to 50% with saturation of 96% we will continue current management. Continue to encourage prone position. 12/22: Patient seen and examined this morning actually doing well. She is down to 3 L with a sat of 94%. She unfortunately has bouts of anxiety relative to the loss of her parents due to COVID-19 who unfortunately have not been buried and this makes her oxygen demand go up but while she comes down she is able to do well at 3 L. I think psychologically she will benefit from being discharged in 24 to 48 hours if her oxygen continues to improve she likely will need home oxygen as her history and as a result a walk test prior to discharge is appropriate. I also discussed with her brother who is also requested that tomorrow we will give an update to the sister about her condition prior to discharge. I have placed a walk test for tomorrow and have discussed with nursing staff also 12/23; patient was on 4L of oxygen saturating 95%. Patient has bouts of anxiety and on 0.25 mg of Xanax as needed. We will do home O2 evaluation and possible discharge today. Patient need PT OT evaluation. Will discuss with case management about her concerns stairs in her house. 12/24; patient was on 5 L of oxygen. Patient need PT OT evaluation. Try to call her brother yesterday but he could not pecan picker his phone. Patient is deconditioned and very weak. Patient may need rehab after evaluated by PT OT. (1) Acute hypoxic respiratory failure 2/2 Covid 19 PNA pulmonary note reviewed Patient is on 5 L via nasal cannula (2) COVID-19 pneumonia Current Visit: Yes Status: Acute Plan to address problem: ID note reviewed inflammatory markers reviewed-improving Completed Decadron and remdesivir course 3. Severe sepsis procalcitonin results reviewed ID note reviewed Off antibiotics 4) leukocytosis improved (5) Hypertension Current Visit: Yes Status: Acute Plan to address problem: Hydralazine 10 mg IV every 6 hours as needed she has no hx of HTN 6) Transaminitis: results reviewed-improving well cont. to monitor (7) anemia Normocytic type H&H stable (8) Anxiety Continue alprazolam as needed 12/09/2020 -Patient was on BiPAP with FiO2 of 100%, patient desaturated when she was off BiPAP momentarily. I put her on D5 half-normal saline for maintenance. Titrate oxygen as tolerated. -Pulmonary consulted, ID consulted. -Patient has elevated ALT and AST and is not a candidate for remdesivir. -Patient is on IV antibiotics and procalcitonin level is elevated, ID recommends to continue with IV antibiotics. ID said patient is not a candidate for Actemra because of the infection with elevated procalcitonin level. 12/10; Patient is on BiPAP, on Decadron. Remdesivir discontinued due to elevated liver enzymes. Patient not a candidate for Actemra because patient has elevated procalcitonin level. Continue with IV antibiotics. Prognosis is guarded. 12/11 Patient is A&O,A&O, c/o weakness and feels tired. C/O shortness of breath. requesting stool sofner. She denies f/c/CP/N/abd. pain 12/12: Continue supportive care. Wean oxygen as tolerated. Will obtain pulmonary consult will evaluate for possible Lasix therapy. Noted anemia with hemoglobin of 8.1 will monitor this closely. D-dimer is elevated so is AST and ALT and alk phos. This may preclude use of medications such as remdesivir which has been discontinued in relation to this. Patient remains critically ill. 12/13: Patient showing some improve, still with BiPAP requirements, continue supportive care, continued sterods, Remdesivr per ID, monitor renal function closely and LFT. wean oxygen as tolerated. Prognosis guarded 12/14: Patient seen and examined, she is showing good improvement, down to 10 liters except that she gets anxious. I spoke extensively with the family and updated them on her clinical condition 12/15: Patient continues to show good improvement, weaned down to 5L of oxygen with saturation of 99%. Will transfer to Medical floor and continue current management. 12/16: Patient was doing well this am, on 5 liters and sating 95%, later desated and was placed back on BIPAP. reassurance and counselling provided 12/17: Patient remains on oxygen high flow. I believe that she will be able to be weaned if she if we can control her anxiety. Discussed with nursing staff at bedside also discussed with the patient. Will begin LTAC referral in a.m. 12/18/20 patient is seen and examined. Less shortness of breath. No chest pain. Anxious. Is on high flow oxygen at 40 L with 75% FiO2. We cut down the FiO2 75% from 80%. Wean oxygen. Continue current management. LTAC referral 12/19: Ms. Jarrett continues to show some improvement, She is currently on 70% FIO2 and satting 99%. Discussed with respiratory therapist will try to wean down further. Will transfer to [facility]. Continue to encourage slow deep breaths. Continue to use anxiolytics. Awaiting LTAC approval. Continue to monitor hemoglobin. 12/20: Patient seen and examined, patient needs to continue weaning of oxygen, satting 98% on 70%FIO2. Her anxiety level is improving, can transfer to [facility] 12/21: Patient showing good disposition. Currently FiO2 is down to 50% with saturation of 96% we will continue current management. Continue to encourage prone position. 12/22: Patient seen and examined this morning actually doing well. She is down to 3 L with a sat of 94%. She unfortunately has bouts of anxiety relative to the loss of her parents due to COVID-19 who unfortunately have not been buried and this makes her oxygen demand go up but while she comes down she is able to do well at 3 L. I think psychologically she will benefit from being discharged in 24 to 48 hours if her oxygen continues to improve she likely will need home oxygen as her history and as a result a walk test prior to discharge is appropriate. I also discussed with her brother who is also requested that tomorrow we will give an update to the sister about her condition prior to discharge. I have placed a walk test for tomorrow and have discussed with nursing staff also 12/23; patient was on 4L of oxygen saturating 95%. Patient has bouts of anxiety and on 0.25 mg of Xanax as needed. We will do home O2 evaluation and possible discharge today. Patient need PT OT evaluation. Will discuss with case management about her concerns stairs in her house. 12/24; patient was on 5 L of oxygen. Patient need PT OT evaluation. Try to call her brother yesterday but he could not pecan picker his phone. Patient is deconditioned and very weak. Patient may need rehab after evaluated by PT OT. 12/25 patient is alert and oriented and complains of weakness and feeling tired, also complains of coughing spells and feels short of breath with mild effort She denies any fever or chills, denies chest pain, abdominal pain or dysuria. Lab results reviewed 12/26 patient is alert and oriented and on 5 L oxygen via nasal cannula. Complains of cough and shortness of breath with minimal effort and desaturates with mild effort. Also complains of anxiety and depression lab results reviewed. Pulmonary note reviewed 12/27: Patient clinical stable this morning, anxiously waiting to be discharged, i found her on 3 liters of oxygen and with no distress. I did have extensive conversation with her about her medical condition and critical factors to monitor for she states that she already has home oxygen and also has a pulse oximeter which she will monitor daily. Discussed with Rehab, patient will need SNF as she destaurates with exertion and has no one to care for her at home. Also she has no one at home to help her. 12/28: Patient still requires aggressive rehab and physical therapy unfortunately. Source precludes. Case management to discuss with family to see if there is any family member that can take her to their home while we look for other options. Continue oxygen therapy daily ambulation and once clinically stable can be discharged 12/29: Patient seen and examined, will continue daily PT/OT and anticipate discharge tomorrow once safety arrangements are finalized at home. Discussed with the team 12/30: Patient seen and examined, she reports that she is able to stand and walk to the bathroom without worsening dyspnea. her sat on 2 liters of oxygen at rest is 95% and she has been advised that she should use 4 liters with exertion. Patient reports that she has adequate care at home with family who will be doing shifts with her. Develops advised him to make sure she has a pulse oximeter that she verbalized that her family has already purchased one for her. Disposition: HOME HEALTH CARE SERVICE Final Discharge Diagnosis (Prints w/discharge instructions): acute hypoxic respiratory failure secondary to covid pneumonia Time spent for discharge: 35 MINS Core Measure Documentation - Palliative Care Palliative Care/ Comfort Measures: Not Applicable - Core Measures Any of the following diagnoses?: none Exam - Physical Exam Narrative exam: VITAL SIGNS: Reviewed. GENERAL: The patient appears normally developed, mild shortness of breath much improved compared to prior improving, vital signs as documented. HEAD: No signs of head trauma. EYES: Pupils are equal. Extraocular motions intact. EARS: Hearing grossly intact. MOUTH: Oropharynx is normal. NECK: No adenopathy, no JVD. CHEST: Chest with diminished breath sounds bilaterally. No wheezes, rales, or rhonchi. CARDIAC: Regular rate and rhythm. S1 and S2, without murmurs, gallops, or rubs. VASCULAR: No Edema. Peripheral pulses normal and equal in all extremities. ABDOMEN: Soft, non tender and non distended. No rebound or guarding, and no masses palpated. Bowel Sounds normal. MUSCULOSKELETAL: Good range of motion of all major joints. Extremities without clubbing, cyanosis or edema. NEUROLOGIC EXAM: Alert and oriented x 3, No focal sensory or strength deficits. Speech normal. Follows commands. PSYCHIATRIC: Mood normal not at the moment SKIN: detail exam as documented in skin assessment - Constitutional Vitals: Temp Pulse Resp BP Pulse Ox 98.2 F 105 H 20 103/70 93 12/30/20 04:26 12/29/20 21:13 12/30/20 04:26 12/30/20 04:26 12/30/20 06:23 Plan Activity: advance as tolerated, fall precautions Diet: low fat Special Instructions: record daily weights, record daily BP diary, record blood sugar diary Plan of Treatment: Continue with mask use oxygen at 2 liters at rest and 4 liters with ambulation follow protocol get vaccinated when cleared by PCP Follow up with: PRIMARY CARE, [Primary Care Provider] - 7 Days ANGELINE ROSALES MD [Staff Physician] - 7 Days EARNEST AGUIAR MD [Staff Physician] - 7 Days Prescriptions: Apixaban [Eliquis] 5 mg PO BID #60 tablet Famotidine [Pepcid] 20 mg PO BID #60 tablet guaiFENesin/CODEINE [Robitussin AC] 10 ml PO Q6H #14 oral.liqd Ascorbic Acid [Vitamin C] 500 mg PO BID #30 tablet Cholecalciferol Vit D3 [Vitamin D3 1,000 UNIT TAB] 1,000 unit PO QDAY #30 tablet ALPRAZolam [Xanax TAB] 0.25 mg PO Q6H PRN #14 tablet PRN Reason: Anxiety lisinopriL [Zestril TAB] 20 mg PO QDAY #30 tablet Zinc Sulfate 220 mg PO QDAY #30 capsule
[2020-12-30] MEDS: FAMOTIDINE 20 MG TAB PO SCH (10:42)
[2020-12-30] MEDS: ZINC SULFATE 220 MG CAP PO SCH (10:43)
[2020-12-30] MEDS: CHOLECALCIFEROL (VIT D3) 1000 UNIT (25 mcg) TAB PO SCH (10:43)
[2020-12-30] MEDS: LISINOPRIL 20 MG TAB PO SCH (10:43)
[2020-12-30] MEDS: ASCORBIC ACID 500 MG TAB PO SCH (10:43)
[2020-12-30] MEDS: ENOXAPARIN 80 MG/0.8 ML INJ SUB-Q SCH (10:43)
[2020-12-30] MEDS ORDERED: levoFLOXacin 500 MG TAB PO ONE (13:00)
[2020-12-30] MEDS: ALPRAZolam 0.25 MG TAB PO PRN (14:34)
[2020-12-30 15:04] VITALS: BP 142/79
== END 2020-12-30 19:21 | disposition home health service (06) | DRG 871 ==
LOC: ED 22:24 → IMCU 12-08 03:11 → 3A 12-20 15:17
PROVIDERS: ADMIT Hospitalist; ATTEND Internal Medicine
PROC: 5A09357 Assistance with Respiratory Ventilation, Less than 24 Consecutive Hours, Continuous Positive Airway Pressure (ICD-10-PCS; principal; 2020-12-08)
PROC: 5A09357 Assistance with Respiratory Ventilation, Less than 24 Consecutive Hours, Continuous Positive Airway Pressure (ICD-10-PCS; 2020-12-09)
PROC: 5A09357 Assistance with Respiratory Ventilation, Less than 24 Consecutive Hours, Continuous Positive Airway Pressure (ICD-10-PCS; 2020-12-10)
PROC: 4A033R1 Measurement of Arterial Saturation, Peripheral, Percutaneous Approach (ICD-10-PCS; 2020-12-10)
PROC: 5A09357 Assistance with Respiratory Ventilation, Less than 24 Consecutive Hours, Continuous Positive Airway Pressure (ICD-10-PCS; 2020-12-11)
PROC: XW033E5 Introduction of Remdesivir Anti-infective into Peripheral Vein, Percutaneous Approach, New Technology Group 5 (ICD-10-PCS; 2020-12-11)
PROC: 5A09357 Assistance with Respiratory Ventilation, Less than 24 Consecutive Hours, Continuous Positive Airway Pressure (ICD-10-PCS; 2020-12-12)
PROC: 5A09357 Assistance with Respiratory Ventilation, Less than 24 Consecutive Hours, Continuous Positive Airway Pressure (ICD-10-PCS; 2020-12-14)
PROC: 5A09357 Assistance with Respiratory Ventilation, Less than 24 Consecutive Hours, Continuous Positive Airway Pressure (ICD-10-PCS; 2020-12-16)
PROC: 5A0955A Assistance with Respiratory Ventilation, Greater than 96 Consecutive Hours, High Flow/Velocity Cannula (ICD-10-PCS; 2020-12-16)
DX: A41.89 Other specified sepsis (principal); U07.1 COVID-19; J96.01 Acute respiratory failure with hypoxia; J12.82 Pneumonia due to coronavirus disease 2019; R65.20 Severe sepsis without septic shock; D64.9 Anemia, unspecified; Z86.79 Personal history of other diseases of the circulatory system; R74.01 Elevation of levels of liver transaminase levels; F41.9 Anxiety disorder, unspecified; I10 Essential (primary) hypertension; D47.3 Essential (hemorrhagic) thrombocythemia; D50.9 Iron deficiency anemia, unspecified
CPT/HCPCS: 36415; 36600; 71045; 71275; 76705; 80048; 80053; 80074; 80076; 82140; 82248; 82728; 82805; 83615; 84132; 84145; 85007; 85025; 85027; 85379; 85610; 85730; 86140; 87040; 93970; 94640; 94660; 94760; G0378; J0171; J0456; J0696; J1100; J1170; J1644; J1650; J2060; J2405; J7030; J7050; Q9967; U0003